=== PATIENT | female | born 1950 | race Caucasian/White ===

== ENCOUNTER 2016-09-03 10:17 | Outpatient (CLI) | payer MEDICARE, BC | END 2016-09-03 10:18 | disposition home or self-care (01) | DX: Z12.31 Encounter for screening mammogram for malignant neoplasm of breast (principal) ==

== ENCOUNTER 2016-09-09 14:45 | Outpatient (CLI) | payer MEDICARE, BC | END 2016-09-09 14:46 | disposition home or self-care (01) | LOC: LAB.WCP 14:45 | PROVIDERS: ATTEND Family Medicine | DX: N30.00 Acute cystitis without hematuria (principal) | CPT/HCPCS: 87077; 87086 ==

== ENCOUNTER 2016-10-29 08:36 | Outpatient (CLI) | payer MEDICARE, BC ==
--- NOTE | 2016-10-29 13:03 | MRI Report ---
EXAM: LEFT SHOULDER MRI WITHOUT CONTRAST EXAM DATE: 10/29/2016 09:47 a.m. CLINICAL HISTORY: Chronic left shoulder pain for one year. COMPARISON: None. TECHNIQUE: Multiplanar, multisequence T1-weighted and fluid-sensitive sequences of the shoulder witho ut contrast. Other: None. FINDINGS: Rotator cuff: Ill-defined full-thickness tear involving the distal posterior fibers of the supraspina tus and upper infraspinatus measuring approximately 1.8 cm medial to lateral and 1.2 cm anteroposteri or. Mild supraspinatus and infraspinatus atrophy with a mild degree of fatty replacement. Mild edema and thickening of the distal subscapularis. Low-grade insertional tear of the subscapularis allowing slight medial subluxation of the long head biceps tendon from the bicipital groove. Long head biceps tendon: Slight medial subluxation from the bicipital groove into the substance of th e distal subscapularis tendon. Otherwise intact. Labrum: Intact. No tear identified. Bones and articular surfaces: Mild cartilage thinning, irregularity and fissuring within the glenohum eral joint. Small amount of patchy subchondral marrow edema. Acromioclavicular joint: Mild degenerative change. Type I acromion. IMPRESSION: 1. Full-thickness tear involving the distal supraspinatus and infraspinatus junction measuring approx imately 1.8 x 1.2 cm. 2. Mild glenohumeral and acromioclavicular osteoarthritis. [facility] MUSCULOSKELETAL RADIOLOGY SECTION Referring Provider Line: [phone] SITE ID: [id number]
== END 2016-10-29 08:37 | disposition home or self-care (01) ==
LOC: DI 08:36
PROVIDERS: ATTEND Physician Assistant Medical
DX: M75.102 Unspecified rotator cuff tear or rupture of left shoulder, not specified as traumatic (principal); M19.012 Primary osteoarthritis, left shoulder

== ENCOUNTER 2017-10-09 19:23 | Outpatient (CLI) | payer MEDICARE, BC | END 2017-10-09 19:24 | disposition critical access hospital (66) | LOC: EMS 19:23 | PROVIDERS: ATTEND Surgery | DX: R42 Dizziness and giddiness (principal); R11.2 Nausea with vomiting, unspecified | CPT/HCPCS: A0425; A0429 ==

== ENCOUNTER 2017-10-09 19:43 | Emergency (ER) | payer MEDICARE, BC ==
--- NOTE | 2017-10-09 20:23 | ED Physician Documentation ---
PD HPI HEENT - Stated complaint Stated Complaint: DIZZINESS/N/V - Chief complaint Chief Complaint: Neuro - History obtained from History obtained from: Patient - History of Present Illness Timing - onset: How many days ago (few) Timing - details: Abrupt onset, Still present, Intermittant Location: Other (dizziness and has had some baseline tinnitus in left ear.) Worsens: Position Associated symptoms: No: Fever, Congestion, Rhinorrhea Similar symptoms before: No diagnosis (brief vertiog with standing up and bending over in the past, not consistent like current.) Recently seen: Not recently seen Review of Systems Constitutional: denies: Fever, Chills Eyes: denies: Loss of vision, Decreased vision, Photophobia Ears: reports: Loss of hearing (chronic mild), Tinnitus/ringing (left ear chronic intermittent) Nose: denies: Rhinorrhea / runny nose, Congestion, Sinus pressure / pain Throat: denies: Sore throat Cardiac: denies: Chest pain / pressure, Palpitations Respiratory: denies: Dyspnea, Cough GI: reports: Nausea, Vomiting. denies: Abdominal Pain, Diarrhea : denies: Dysuria, Frequency Skin: denies: Rash, Lesions Neurologic: denies: Focal weakness, Numbness, Difficulty speaking, Near syncope , Confused, Altered mental status, Headache, Head injury Endocrine: reports: Easy bruising / bleeding. denies: Weight loss Immunocompromised: denies: Immunocompromised PD PAST MEDICAL HISTORY - Past Medical History Cardiovascular: Hypertension, Deep vein thrombosis, Atrial fibrillation Respiratory: Shortness of breath Endocrine/Autoimmune: Type 2 diabetes GI: GERD, GI bleed ULTIMATE HOOPS REFEREE: None : Kidney stones HEENT: Chronic vision loss Psych: Depression, Anxiety Musculoskeletal: Osteoarthritis, Chronic back pain Derm: None - Past Surgical History Past Surgical History: No General: Cholecystectomy Ortho: Knee replacement, Other HEENT: Cataracts - Present Medications Home Medications: Ambulatory Orders Medication Instructions Recorded Confirmed FLUoxetine [PROzac] 20 mg PO DAILY 03/23/15 02/27/16 Lisinopril 10 mg PO DAILY 03/23/15 02/27/16 Nortriptyline [Pamelor] 25 mg PO .HS 03/23/15 02/27/16 buPROPion [Wellbutrin Sr] 150 mg PO DAILY 03/23/15 02/27/16 Atorvastatin Calcium [Lipitor] 80 mg PO DAILY 05/02/15 02/27/16 Pantoprazole Sodium 40 mg PO DAILY 02/27/16 02/27/16 Tolterodine Tartrate [Detrol LA] 4 mg PO DAILY 02/27/16 02/27/16 Warfarin [Coumadin] 1 mg PO DAILY 02/27/16 02/27/16 Dexamethasone [Decadron] 4 mg PO DAILY #5 tablet 10/09/17 Meclizine [Antivert] 25 mg PO Q6H PRN #30 tablet 10/09/17 - Allergies Allergies/Adverse Reactions: Allergies Allergy/AdvReac Type Severity Reaction Status Date / Time morphine Allergy Unknown Verified 10/09/17 19:48 phenobarbital Allergy Hives Verified 10/09/17 19:48 - Social History Does the pt smoke?: No Smoking Status: Never smoker Does the pt drink ETOH?: No Does the pt have substance abuse?: No - Family History Family history: reports: Non contributory - Immunizations Immunizations are current?: Yes - POLST Patient has POLST: No PD ED PE NORMAL - Vitals Vital signs reviewed: Yes - General General: Alert and oriented X 3, No acute distress, Well developed/nourished - HEENT HEENT: PERRL (with nystagmus to the left noted. ), Ears normal, Moist mucous membranes, Pharynx benign - Neck Neck: Supple, no meningeal sign, No adenopathy, No bruit - Cardiac Cardiac: RRR, No murmur - Respiratory Respiratory: Clear bilaterally - Abdomen Abdomen: Normal bowel sounds, Soft, Non tender - Back Back: No CVA TTP - Derm Derm: Normal color, Warm and dry, No rash - Extremities Extremities: No deformity, No tenderness to palpate, Normal ROM s pain, No edema , No calf tenderness / cord - Neuro Neuro: Alert and oriented X 3, head bone grinder 2-12 intact, No motor deficit, No sensory deficit, Normal speech Eye Opening: Spontaneous Motor: Obeys Commands Verbal: Oriented GCS Score: 15 - Psych Psych: Normal mood, Normal affect Results - Vitals Vitals: Vital Signs - 24 hr 10/09/17 22:54 Heart Rate 78 Respiratory 16 Rate Blood Pressure 132/58 H O2 Saturation 96 Oxygen O2 Source Room air - Labs Labs: Laboratory Tests 10/09/17 10/09/17 10/09/17 20:52 20:52 20:52 WBC 7.8 RBC 4.17 L Hgb 12.8 Hct 39.1 MCV 93.9 MCH 30.7 MCHC 32.7 RDW 13.8 Plt Count 270 MPV 7.7 L Neut # (Auto) 5.9 Lymph # (Auto) 1.3 L Barton # (Auto) 0.5 Eos # (Auto) 0.1 Baso # (Auto) 0.0 Absolute Nucleated RBC 0.01 Nucleated RBC % 0.1 ESR PT 28.6 H INR 2.6 H Sodium 138 Potassium 4.0 Chloride 104 Carbon Dioxide 27 Anion Gap 7.0 BUN 23 H Creatinine 1.1 H Estimated GFR (MDRD) 49 L Glucose 128 H Calcium 8.9 Magnesium 1.7 Total Bilirubin 0.3 AST 23 ALT 17 Alkaline Phosphatase 59 Total Protein 7.5 Albumin 3.5 Globulin 4.0 Albumin/Globulin Ratio 0.9 L Lipase 17 L 10/09/17 20:52 WBC RBC Hgb Hct MCV MCH MCHC RDW Plt Count MPV Neut # (Auto) Lymph # (Auto) Barton # (Auto) Eos # (Auto) Baso # (Auto) Absolute Nucleated RBC Nucleated RBC % ESR 23 PT INR Sodium Potassium Chloride Carbon Dioxide Anion Gap BUN Creatinine Estimated GFR (MDRD) Glucose Calcium Magnesium Total Bilirubin AST ALT Alkaline Phosphatase Total Protein Albumin Globulin Albumin/Globulin Ratio Lipase - Rads (name of study) head CT Radiology: Prelim report reviewed, EMP read contemporaneously PD MEDICAL DECISION MAKING - ED course Complexity details: considered differential (seems peripheral vertigo with positionality and dampening. She is on coumadin, so consider focal bleed, and got CT head. ), d/w patient - Sepsis Event Vital Signs: Vital Signs - 24 hr 10/09/17 22:54 Heart Rate 78 Respiratory 16 Rate Blood Pressure 132/58 H O2 Saturation 96 Oxygen O2 Source Room air Departure - Departure Disposition: 01 Home, Self Care Clinical Impression: Peripheral vertigo Qualifiers: Laterality: unspecified laterality Qualified Code(s): H81.399 - Other peripheral vertigo, unspecified ear Condition: Stable Record reviewed to determine appropriate education?: Yes Instructions: ED Vertigo Unspecified Follow-Up: Delio Manriquez DO [Primary Care Provider] - Prescriptions: Dexamethasone [Decadron] 4 mg PO DAILY #5 tablet Meclizine [Antivert] 25 mg PO Q6H PRN #30 tablet PRN Reason: Vertigo Comments: Continue usual medications. Get up and move slowly to reduce the triggering of the vertigo. Decadron daily for the next 5 days presuming some inflammation of the inner ear or the nerve to it causing the vertigo. Meclizine as needed to reduce the vertigo symptoms. Follow-up with your primary care in the next several days, call Wednesday for an appointment. Discharge Date/Time: 10/09/17 22:55
[2017-10-09] MEDS ORDERED: ONDANSETRON ODT 4 MG TABLET TL STA (20:37)
[2017-10-09 21:05] LABS: BASOPHILS % (AUTO) 0.5 %; EOSINOPHILS # (AUTO) 0.1 10^3/uL (0.0-0.7); EOSINOPHILS % (AUTO) 0.8 %; HGB - HEMOGLOBIN 12.8 g/dL (12.0-16.0); LYMPHOCYTES # (AUTO) 1.3 10^3/uL (1.5-3.5); LYMPHOCYTES % (AUTO) 16.1 %; MEAN CORPUSCULAR HEMOGLOBIN 30.7 pg (27.0-31.0); MEAN CORPUSCULAR HGB CONC 32.7 g/dL (32.0-36.0); MEAN CORPUSCULAR VOLUME 93.9 fL (81.0-99.0); MEAN PLATELET VOLUME 7.7 fL (7.9-10.8); MONOCYTES # (AUTO) 0.5 10^3/uL (0.0-1.0); MONOCYTES % (AUTO) 6.8 %; NEUTROPHILS # (AUTO) 5.9 10^3/uL (1.5-6.6); NEUTROPHILS % (AUTO) 75.8 %; PLT - PLATELET COUNT 270 10^3/uL (130-450); RED BLOOD COUNT 4.17 10^6/uL (4.20-5.40); RED CELL DISTRIBUTION WIDTH 13.8 % (12.0-15.0); WHITE BLOOD COUNT 7.8 x10^3/uL (4.8-10.8)
[2017-10-09 21:06] LABS: INR 2.6 (0.8-1.2); PT - PROTHROMBIN TIME 28.6 secs (9.9-12.6)
[2017-10-09 21:14] LABS: ALBUMIN 3.5 g/dL (3.2-5.5); ALBUMIN/GLOBULIN RATIO 0.9 (1.0-2.2); BILIRUBIN,TOTAL 0.3 mg/dL (0.2-1.0); CALCIUM 8.9 mg/dL (8.5-10.3); CREATININE 1.1 mg/dL (0.4-1.0); MAGNESIUM 1.7 mg/dL (1.7-2.8); TOTAL PROTEIN 7.5 g/dL (6.7-8.2)
[2017-10-09] MEDS ORDERED: MECLIZINE 12.5 MG TABLET PO STA (22:33)
[2017-10-09] MEDS ORDERED: DEXAMETHASONE 10 MG/ML VIAL PO STA (22:33)
--- NOTE | 2017-10-09 22:40 | CT Report ---
Procedure Date: 10/09/2017 Accession Number: [id number] / [id number] Procedure: CT - Head W/O CPT Code: FULL RESULT: EXAM: CT HEAD EXAM DATE: 10/09/2017 09:42 PM. CLINICAL HISTORY: Vertigo onset few hours ago. COMPARISON: Head CT 08/28/2015. TECHNIQUE: Multiaxial CT images were obtained from the foramen magnum to the vertex. Reformats: Coronal. IV contrast: None. In accordance with CT protocol optimization, one or more of the following dose reduction techniques were utilized for this exam: automated exposure control, adjustment of mA and/or KV based on patient size, or use of iterative reconstructive technique. FINDINGS: Parenchyma: No intraparenchymal hemorrhage. No evidence of mass, midline shift, or CT findings of infarction. Coronado-white differentiation is distinct. Extraaxial Spaces: Normal for age. No subdural or epidural collections identified. Ventricles: There is moderate dilatation of lateral ventricles, unchanged from prior study. Sinuses and Orbits: Imaged paranasal sinuses, orbits, and mastoids show no significant abnormality. Bones: No evidence of fracture or calvarial defect. Other: None. IMPRESSION: 1. No Evidence of acute intracranial processes. 2. Stable moderate ventriculomegaly may represent central volume loss or NPH. [facility]
[2017-10-09 22:55] VITALS: BP 132/58
== END 2017-10-09 22:55 | disposition home or self-care (01) ==
LOC: EDUNIT# → ED 19:43 → SUPCPDRO 19:43 → ED 22:55
DX: H81.399 Other peripheral vertigo, unspecified ear (principal); I10 Essential (primary) hypertension; E11.9 Type 2 diabetes mellitus without complications; I48.91 Unspecified atrial fibrillation; Z86.718 Personal history of other venous thrombosis and embolism; Z79.01 Long term (current) use of anticoagulants
CPT/HCPCS: 36415; 70450; 80053; 83690; 83735; 85025; 85610; 85651; 93005; 99283; A9270; Q0162

== ENCOUNTER 2017-11-11 12:22 | Outpatient (CLI) | payer MEDICARE, BC ==
--- NOTE | 2017-11-11 22:10 | Ultrasound Report ---
Procedure Date: 11/11/2017 Accession Number: [id number] / [id number] Procedure: US - Carotid Doppler Complete CPT Code: FULL RESULT: EXAM: BILATERAL CAROTID AND VERTEBRAL ARTERY DUPLEX DOPPLER ULTRASOUND: EXAM DATE: 11/11/2017 03:03 PM CLINICAL HISTORY: HEART MURMUR, VERTIGO, HYPERTENSION. COMPARISON: 03/28/2015. TECHNIQUE: Grayscale imaging, color Doppler, and duplex spectral Doppler were used to evaluate the carotid and vertebral arteries bilaterally. Static images were obtained. FINDINGS: There is a small amount of smooth partially calcified plaque at the bilateral carotid bifurcations. Normal antegrade flow is present in bilateral vertebral arteries. VELOCITIES (cm/sec): Right: RCCA Prox: PSV 91 cm/sec. RCCA Dist: PSV 82 cm/sec, EDV 9 cm/sec. RECA: PSV 130 cm/sec. R Bulb: PSV 60 cm/sec, EDV 10 cm/sec, ICA/CCA ratio 0.73. YANICK Prox: PSV 51 cm/sec, EDV 8 cm/sec, ICA/CCA ratio 0.62. YANICK Mid: PSV 103 cm/sec, EDV 18 cm/sec, ICA/CCA ratio 1.26. YANICK Dist: PSV 75 cm/sec, EDV 15 cm/sec, ICA/CCA ratio 0.91. RVA: PSV 84 cm/sec. RVA flow direction: Antegrade. Left: LCCA Prox: PSV 133 cm/sec. LCCA Dist: PSV 63 cm/sec, EDV 8 cm/sec. LECA: PSV 84 cm/sec. L Bulb: PSV 71 cm/sec, EDV 12 cm/sec, ICA/CCA ratio 1.13. LICA Prox: PSV 70 cm/sec, EDV 13 cm/sec, ICA/CCA ratio 1.11. LICA Mid: PSV 56 cm/sec, EDV 12 cm/sec, ICA/CCA ratio 0.89. LICA Dist: PSV 98 cm/sec, EDV 16 cm/sec, ICA/CCA ratio 1.56. LVA: PSV 49 cm/sec. LVA flow direction: Antegrade. ICA diameter stenosis: Right: <50% by velocity and <70% by NASCET criteria. Left: <50% by velocity and <70% by NASCET criteria. IMPRESSION: 1. There is a small amount of smooth partially calcified plaque at the bilateral carotid bifurcations. 2. In the right carotid artery there are no elevated carotid artery velocities to suggest hemodynamically significant stenosis. 3. In the left carotid artery there are no elevated carotid artery velocities to suggest hemodynamically significant stenosis. 4. Normal antegrade flow is present in bilateral vertebral arteries. General Recommendations: Stenosis =50% ICA - Follow-up ultrasound 6-12 months Stenosis <50% ICA - High Risk Patient with plaque - Follow-up ultrasound 1-2 years Normal Study but High Risk Patient - Follow-up ultrasound 3-5 years Management recommendations and diagnostic criteria are based on current IAC endorsed standards in Carotid Artery Stenosis: Grayscale and Doppler Ultrasound Diagnosis. Validated velocity measurements with angiographic measurements and velocity criteria are extrapolated from diameter data as defined by the Society of Radiologists in Ultrasound Consensus Conference Radiology 2003; 229;340-346. [facility]
== END 2017-11-11 12:23 | disposition home or self-care (01) ==
LOC: DI 12:22
PROVIDERS: ATTEND Family Medicine
DX: R01.1 Cardiac murmur, unspecified (principal); R42 Dizziness and giddiness; I10 Essential (primary) hypertension
CPT/HCPCS: 93306; 93880

== ENCOUNTER 2018-01-24 11:06 | Emergency (ER) | payer MEDICARE, BC ==
[2018-01-24] MEDS ORDERED: SODIUM CHLORIDE 0.9% 1,000 ML IV ONE (11:47)
[2018-01-24] MEDS ORDERED: ACETAMINOPHEN 1,000 MG/100 ML 100 ML IV STA (12:09)
[2018-01-24] MEDS ORDERED: ONDANSETRON 4 MG/2 ML VIAL IVP STA (12:09)
--- NOTE | 2018-01-24 12:24 | ED Physician Documentation ---
History of Present Illness - Stated complaint Stated Complaint: N/V/D DIZZY - Chief complaint Chief Complaint: Abd Pain - Additonal information Additional information: hx from pt 67 f to ED with 3 days of nausea diarrhea s bood and abd pain no bad food no travel no sick contacts no recent ab on coumadin 2/2 DVT 20 years ago not able to tolerate meds or food/fluid Review of Systems Constitutional: denies: Fever, Chills Cardiac: denies: Chest pain / pressure Respiratory: denies: Dyspnea GI: reports: Abdominal Pain, Nausea, Diarrhea. 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 : Kidney stones HEENT: Chronic vision loss Psych: Depression, Anxiety Musculoskeletal: Osteoarthritis, Chronic back pain Derm: None - Past Surgical History Past Surgical History: Yes General: Cholecystectomy Ortho: Knee replacement, Other HEENT: Cataracts - Present Medications Home Medications: Ambulatory Orders Medication Instructions Recorded Confirmed FLUoxetine [PROzac] 20 mg PO DAILY 03/23/15 02/27/16 Lisinopril 10 mg PO DAILY 03/23/15 02/27/16 Nortriptyline [Pamelor] 25 mg PO .HS 03/23/15 02/27/16 buPROPion [Wellbutrin Sr] 150 mg PO DAILY 03/23/15 02/27/16 Atorvastatin Calcium [Lipitor] 80 mg PO DAILY 05/02/15 02/27/16 Pantoprazole Sodium 40 mg PO DAILY 02/27/16 02/27/16 Tolterodine Tartrate [Detrol LA] 4 mg PO DAILY 02/27/16 02/27/16 Warfarin [Coumadin] 1 mg PO DAILY 02/27/16 02/27/16 Dexamethasone [Decadron] 4 mg PO DAILY #5 tablet 10/09/17 Meclizine [Antivert] 25 mg PO Q6H PRN #30 tablet 10/09/17 Cephalexin [Keflex] 500 mg PO Q6H #28 capsule 01/24/18 Ondansetron Odt [Zofran] 4 mg TL Q6H PRN #10 tablet 01/24/18 - Allergies Allergies/Adverse Reactions: Allergies Allergy/AdvReac Type Severity Reaction Status Date / Time morphine Allergy Unknown Verified 10/09/17 19:48 phenobarbital Allergy Hives Verified 10/09/17 19:48 - Social History Does the pt smoke?: No Smoking Status: Never smoker Does the pt drink ETOH?: No Does the pt have substance abuse?: No - Immunizations Immunizations are current?: Yes - POLST Patient has POLST: No PD ED PE NORMAL - Vitals Vital signs reviewed: Yes - General General: Alert and oriented X 3 - HEENT HEENT: PERRL - Neck Neck: Supple, no meningeal sign - Cardiac Cardiac: RRR - Respiratory Respiratory: No respiratory distress, Clear bilaterally - Abdomen Abdomen: Soft, Other (modertae TTP across abd R > L no rebound gaurding or pulsatile mass) Results - Vitals Vitals: Vital Signs - 24 hr 01/24/18 11:25 Temperature 36.6 C Heart Rate 80 Respiratory 20 Rate Blood Pressure 133/88 H O2 Saturation 97 Oxygen O2 Source Room air - Rads (name of study) CT AP Radiology: See rad report (no acute process, appendix non vis but no secondary signs of appy, no kidney/ureteral stones, large hiatal hernia containing stomach distal pancreas, splenic flexure of colon, s/p sondra and ventral hernia repair) PD MEDICAL DECISION MAKING - ED course ED course: diarrhea resolved in ED after stool cx ordered unable to get IV but prt drank a whole liter after ODT zofran labs fine except + UTI will dc on keflex and zofran - Sepsis Event Vital Signs: Vital Signs - 24 hr 01/24/18 11:25 Temperature 36.6 C Heart Rate 80 Respiratory 20 Rate Blood Pressure 133/88 H O2 Saturation 97 Oxygen O2 Source Room air Departure - Departure Disposition: 01 Home, Self Care Clinical Impression: Dehydration Diarrhea Qualifiers: Diarrhea type: unspecified type Qualified Code(s): R19.7 - Diarrhea, unspecified UTI (urinary tract infection) Qualifiers: Urinary tract infection type: acute cystitis Hematuria presence: with hematuria Qualified Code(s): N30.01 - Acute cystitis with hematuria Condition: Good Instructions: ED UTI Cystitis Female, ED Dehydration Follow-Up: Delio Manriquez DO [Primary Care Provider] - Prescriptions: Cephalexin [Keflex] 500 mg PO Q6H #28 capsule Ondansetron Odt [Zofran] 4 mg TL Q6H PRN #10 tablet PRN Reason: Nausea / Vomiting Comments: Your blood work was fine - INR was 2.1 You do have a UTI for which i have prescribed an antibiotic The diarrhea seems to have resolved You were able to hydrate orally after zofran for the nausea - so i have prescribed more of that Rest and drink plenty of fluids Follow up with your PMD for a repeat urine test after completing the antibiotics. Return to the ER if worse
--- NOTE | 2018-01-24 12:52 | CT Report ---
Reason: right sided abd pain Procedure Date: 01/24/2018 Accession Number: [id number] / [id number] Procedure: CT - Abdomen/Pelvis W/O CPT Code: FULL RESULT: EXAM: CT ABDOMEN AND PELVIS EXAM DATE: 01/24/2018 12:34 PM. CLINICAL HISTORY: Right-sided abdominal pain. COMPARISONS: None. TECHNIQUE: Routine helical CT imaging was performed through the abdomen and pelvis. IV contrast: No. Enteric contrast: No. Reconstructions: Coronal and sagittal. In accordance with CT protocol optimization, one or more of the following dose reduction techniques were utilized for this exam: automated exposure control, adjustment of mA and/or KV based on patient size, or use of iterative reconstructive technique. FINDINGS: Lung Bases: Large hiatal hernia containing majority of the stomach and portions of the distal pancreas and splenic flexure is seen. The spleen remains below the diaphragm. Solid organs: Noncontrast imaging of the solid organs demonstrates no acute findings including no nephrolithiasis or hydronephrosis. No organomegaly is suggested. Gallbladder/Bile Ducts: Cholecystectomy changes are seen. There is no biliary dilation. Peritoneal Cavity/Bowel: Normal. No free fluid, free air or adenopathy. No masses or acute inflammatory process. The appendix is not visualized, however, no inflammatory changes are seen in the right lower quadrant region. Hernia mesh repair changes are seen along the anterior mid abdominal wall. Pelvic Organs: Normal. The bladder and visualized pelvic organs are within normal limits. Vasculature: No aneurysms or other significant abnormality. Bones: No significant abnormality. Other: None. IMPRESSION: 1. No acute intra-abdominal abnormality demonstrated including no nephrolithiasis or hydronephrosis. 2. Large hiatal hernia containing stomach, distal pancreas, and splenic flexure of the colon. 3. Status post cholecystectomy and ventral hernia mesh repair changes. [facility]
[2018-01-24] MEDS ORDERED: ONDANSETRON ODT 4 MG TABLET TL STA (14:07)
[2018-01-24 14:27] LABS: BASOPHILS % (AUTO) 0.5 %; EOSINOPHILS % (AUTO) 0.4 %; HGB - HEMOGLOBIN 14.6 g/dL (12.0-16.0); LYMPHOCYTES # (AUTO) 1.4 10^3/uL (1.5-3.5); LYMPHOCYTES % (AUTO) 15.4 %; MEAN CORPUSCULAR VOLUME 91.2 fL (81.0-99.0); MEAN PLATELET VOLUME 7.5 fL (7.9-10.8); MONOCYTES # (AUTO) 0.8 10^3/uL (0.0-1.0); MONOCYTES % (AUTO) 9.3 %; NEUTROPHILS # (AUTO) 6.6 10^3/uL (1.5-6.6); NEUTROPHILS % (AUTO) 74.4 %; PLT - PLATELET COUNT 277 10^3/uL (130-450); RED BLOOD COUNT 4.71 10^6/uL (4.20-5.40); RED CELL DISTRIBUTION WIDTH 13.1 % (12.0-15.0); WHITE BLOOD COUNT 8.9 x10^3/uL (4.8-10.8)
[2018-01-24 14:33] LABS: INR 2.1 (0.8-1.2); PT - PROTHROMBIN TIME 23.1 secs (9.9-12.6)
[2018-01-24 14:39] LABS: ALBUMIN 4.1 g/dL (3.2-5.5); BILIRUBIN,TOTAL 0.6 mg/dL (0.2-1.0); CALCIUM 9.3 mg/dL (8.5-10.3); CREATININE 0.7 mg/dL (0.4-1.0); TOTAL PROTEIN 8.3 g/dL (6.7-8.2)
[2018-01-24 15:42] LABS: BILIRUBIN,URINE NEGATIVE (NEGATIVE); GLUCOSE, URINE (UA) NEGATIVE (NEGATIVE); KETONES,URINE (UA) NEGATIVE (NEGATIVE); LEUKOCYTE ESTERASE, URINE TRACE (NEGATIVE); NITRITE,URINE POSITIVE (NEGATIVE); OCCULT BLOOD,URINE SMALL (NEGATIVE); PROTEIN,URINE NEGATIVE (NEGATIVE); UROBILINOGEN,URINE 0.2 (NORMAL) E.U./dL (NORMAL)
[2018-01-24 15:50] LABS: CLARITY,URINE CLEAR (CLEAR)
[2018-01-24 15:56] LABS: BACTERIA,URINE Many /HPF (None Seen); SQUAMOUS EPITHELIAL CELL,UR RARE Squamous (<= Few); WBC CLUMPS,URINE PRESENT
[2018-01-24 16:23] VITALS: BP 159/83
== END 2018-01-24 16:31 | disposition home or self-care (01) ==
LOC: ED 11:06
DX: E86.0 Dehydration (principal); N39.0 Urinary tract infection, site not specified; I10 Essential (primary) hypertension; I48.91 Unspecified atrial fibrillation; E11.9 Type 2 diabetes mellitus without complications; Z86.718 Personal history of other venous thrombosis and embolism; Z79.01 Long term (current) use of anticoagulants
CPT/HCPCS: 36415; 74176; 80053; 81001; 83690; 84484; 85025; 85610; 87077; 87086; 87181; 99283; J0131; Q0162; 81003

== ENCOUNTER 2018-02-28 09:00 | Outpatient (CLI) | payer MEDICARE, BC ==
[2018-02-28 13:27] LABS: INR 1.8 (0.8-1.2); PT - PROTHROMBIN TIME 20.4 secs (9.9-12.6)
== END 2018-02-28 09:01 | disposition home or self-care (01) ==
LOC: LAB.WCP 09:00
PROVIDERS: ATTEND Family Medicine
DX: I82.509 Chronic embolism and thrombosis of unspecified deep veins of unspecified lower extremity (principal); Z79.01 Long term (current) use of anticoagulants
CPT/HCPCS: 36415; 85610

== ENCOUNTER 2018-03-01 08:36 | Outpatient (CLI) | payer MEDICARE, BC ==
--- NOTE | 2018-03-03 16:11 | Mammography Report ---
Reason: SCREENING MAMMO Procedure Date: 03/01/2018 Accession Number: [id number] / [id number] Procedure: MGN - Screening Mammo Dig Bilat CPT Code: FULL RESULT: EXAM: Screening Mammo Dig Bilat DATE: 03/01/2018 9:09 AM CLINICAL HISTORY: Routine screening. Family history breast cancer in aunt age 44, grandmother age 52 and a cousin age 48. TECHNIQUE: Bilateral CC and MLO views were obtained. COMPARISON: 09/03/2016 through 05/29/2013. FINDINGS: The breasts demonstrate scattered fibroglandular densities bilaterally. Bilateral breasts: There are no suspicious masses, calcifications or areas of distortion. There is a stable excisional biopsy scar upper outer right breast. IMPRESSION: Benign findings RECOMMENDATION: Routine annual screening unless otherwise clinically indicated. BI-RADS CATEGORY 2: Benign findings STANDARD QUALIFYING STATEMENTS: 1. This examination was reviewed with the aid of Computer-Aided Detection (CAD). 2. A negative or benign imaging report should not preclude biopsy if clinically suspicious findings are present. 3. Dense breasts may obscure an underlying neoplasm. 4. This examination was reviewed without the aid of 3D breast imaging (tomosynthesis).
== END 2018-03-01 08:37 | disposition home or self-care (01) ==
LOC: DI.N 08:36
DX: Z12.31 Encounter for screening mammogram for malignant neoplasm of breast (principal); Z80.3 Family history of malignant neoplasm of breast
CPT/HCPCS: 77067

== ENCOUNTER 2018-04-26 10:29 | Outpatient (CLI) | payer MEDICARE, BC ==
[2018-04-26 12:38] LABS: BASOPHILS % (AUTO) 0.4 %; EOSINOPHILS # (AUTO) 0.2 10^3/uL (0.0-0.7); EOSINOPHILS % (AUTO) 1.4 %; HGB - HEMOGLOBIN 11.1 g/dL (12.0-16.0); LYMPHOCYTES # (AUTO) 1.5 10^3/uL (1.5-3.5); LYMPHOCYTES % (AUTO) 11.2 %; MEAN CORPUSCULAR HEMOGLOBIN 29.8 pg (27.0-31.0); MEAN CORPUSCULAR HGB CONC 32.6 g/dL (32.0-36.0); MEAN CORPUSCULAR VOLUME 91.6 fL (81.0-99.0); MEAN PLATELET VOLUME 8.1 fL (7.9-10.8); MONOCYTES # (AUTO) 0.8 10^3/uL (0.0-1.0); MONOCYTES % (AUTO) 5.9 %; NEUTROPHILS # (AUTO) 10.9 10^3/uL (1.5-6.6); NEUTROPHILS % (AUTO) 81.1 %; PLT - PLATELET COUNT 488 10^3/uL (130-450); RED BLOOD COUNT 3.73 10^6/uL (4.20-5.40); RED CELL DISTRIBUTION WIDTH 13.8 % (12.0-15.0); WHITE BLOOD COUNT 13.4 x10^3/uL (4.8-10.8)
[2018-04-26 12:41] LABS: ALBUMIN 2.4 g/dL (3.2-5.5); ALBUMIN/GLOBULIN RATIO 0.5 (1.0-2.2); BILIRUBIN,TOTAL 0.3 mg/dL (0.2-1.0); CALCIUM 8.5 mg/dL (8.5-10.3); CREATININE 0.8 mg/dL (0.4-1.0); TOTAL PROTEIN 7.5 g/dL (6.7-8.2)
[2018-04-26 12:59] LABS: PT - PROTHROMBIN TIME > 120.0 secs (9.9-12.6)
[2018-04-26 13:19] LABS: INR > 10.0 (0.8-1.2)
== END 2018-04-26 23:59 | disposition home or self-care (01) ==
LOC: LAB.WCP 10:29
PROVIDERS: ATTEND Family Medicine
DX: J18.9 Pneumonia, unspecified organism (principal); Z79.01 Long term (current) use of anticoagulants
CPT/HCPCS: 36415; 80053; 85025; 85610

== ENCOUNTER 2018-07-01 08:00 | Outpatient (CLI) | payer MEDICARE, BC | END 2018-07-01 23:59 | disposition home or self-care (01) | LOC: LAB.WCP 08:00 | PROVIDERS: ATTEND Nurse Practitioner | DX: I82.509 Chronic embolism and thrombosis of unspecified deep veins of unspecified lower extremity (principal); Z79.01 Long term (current) use of anticoagulants ==

== ENCOUNTER 2018-08-12 09:37 | Outpatient (CLI) | payer MEDICARE, BC ==
[2018-08-12 12:49] LABS: EOSINOPHILS % (AUTO) 1.3 %; HGB - HEMOGLOBIN 12.4 g/dL (12.0-16.0); LYMPHOCYTES # (AUTO) 0.9 10^3/uL (1.5-3.5); LYMPHOCYTES % (AUTO) 26.4 %; MEAN CORPUSCULAR HGB CONC 32.5 g/dL (32.0-36.0); MEAN CORPUSCULAR VOLUME 89.3 fL (81.0-99.0); MEAN PLATELET VOLUME 8.1 fL (7.9-10.8); MONOCYTES # (AUTO) 0.4 10^3/uL (0.0-1.0); MONOCYTES % (AUTO) 12.4 %; NEUTROPHILS % (AUTO) 58.9 %; PLT - PLATELET COUNT 304 10^3/uL (130-450); RED BLOOD COUNT 4.28 10^6/uL (4.20-5.40); RED CELL DISTRIBUTION WIDTH 13.4 % (12.0-15.0); WHITE BLOOD COUNT 3.4 x10^3/uL (4.8-10.8)
[2018-08-12 13:07] LABS: ALBUMIN 3.8 g/dL (3.2-5.5); ALBUMIN/GLOBULIN RATIO 0.9 (1.0-2.2); ALKALINE PHOSPHATASE 88 IU/L (42-121); ALT ALANINE AMINOTRANSFERASE 25 IU/L (10-60); AST ASPARTATE AMINOTRANSFERASE 29 IU/L (10-42); BILIRUBIN,TOTAL 0.4 mg/dL (0.2-1.0); BUN - BLOOD UREA NITROGEN 23 mg/dL (6-20); CALCIUM 9.1 mg/dL (8.5-10.3); CARBON DIOXIDE - CO2 26 mmol/L (21-32); CHLORIDE 103 mmol/L (101-111); CHOL/HDL RATIO 1.9 (<4.4); CHOLESTEROL 187 mg/dL; CREATININE 0.9 mg/dL (0.4-1.0); GFR - MDRD 62 (>89); GLUCOSE 115 mg/dL (70-100); HDL CHOLESTEROL 96 mg/dL; LDL CHOLESTEROL,CALCULATED 72 mg/dL; LDL/HDL RATIO 0.8 (<4.4); SODIUM 139 mmol/L (135-145); VLDL CHOLESTEROL 19 mg/dL
[2018-08-12 13:38] LABS: HB2 TOTAL 13.4 g/dL; HEMOGLOBIN A1C 0.48 g/dL; HEMOGLOBIN A1C % 5.4 % (4.6-6.2)
== END 2018-08-12 23:59 | disposition home or self-care (01) ==
LOC: LAB.N 09:37
DX: E11.9 Type 2 diabetes mellitus without complications (principal); Z79.01 Long term (current) use of anticoagulants
CPT/HCPCS: 36415; 80053; 80061; 83036; 83721; 84443; 85025; 85610

== ENCOUNTER 2018-08-18 08:00 | Outpatient (CLI) | payer MEDICARE, BC | END 2018-08-18 23:59 | disposition home or self-care (01) | LOC: LAB.WCP 08:00 | PROVIDERS: ATTEND Family Medicine | DX: N39.0 Urinary tract infection, site not specified (principal) | CPT/HCPCS: 87077; 87086; 87181 ==

== ENCOUNTER 2018-10-07 11:09 | Outpatient (CLI) | payer MEDICARE, BC ==
[2018-10-07] MEDS ORDERED: IOTHALAMATE MEGLUMINE 50 ML VIAL ONE (11:42)
[2018-10-07] MEDS ORDERED: BUFFERED LIDOCAINE 10 ML SYRINGE ONE (11:42)
--- NOTE | 2018-10-07 14:36 | XRAY Report ---
Reason: PAIN IN LEFT SHOULDER Procedure Date: 10/07/2018 Accession Number: [id number] / [id number] Procedure: FL - Inj/Aspiration Major Joint CPT Code: FULL RESULT: EXAM: LEFT SHOULDER STEROID INJECTION WITH FLUOROSCOPIC GUIDANCE EXAM DATE: 10/07/2018 12:33 PM. CLINICAL HISTORY: PAIN IN LEFT SHOULDER. COMPARISON: None. TECHNIQUE: The risks, benefits, and alternatives of the procedure were discussed with the patient. All questions were answered. Written and verbal consent were obtained. The glenohumeral joint was marked under fluoroscopy and prepped and draped in a sterile manner. Local anesthesia was performed with 1% lidocaine. A 22-gauge needle was then inserted into the glenohumeral joint. Location was tested with contrast and following confirmation, 40 mg of triamcinolone with 4 mL of 0.5% ropivacaine was then injected. The needle was removed without immediate complication. Other: None. Fluoroscopy Time: 1 second. Number of Images: 3. FINDINGS: Bones and joints: No fracture or subluxation. Injection: Fluoroscopic images demonstrate needle placement and contrast in the glenohumeral joint. No contrast extravasation outside of the glenohumeral joint. IMPRESSION: Successful fluoroscopically-guided steroid injection of the shoulder. [facility]
[2018-10-07] MEDS ORDERED: IOTHALAMATE MEGLUMINE 50 ML VIAL IVP ONE ×2 (15:42)
[2018-10-07] MEDS ORDERED: TRIAMCINOLONE 40 MG/ML VIAL IM ONE (15:42)
[2018-10-07] MEDS ORDERED: BUFFERED LIDOCAINE 10 ML SYRINGE IU ONE ×2 (15:42)
[2018-10-07] MEDS ORDERED: ROPIVACAINE 0.5% PF 20 ML VIAL EPI SCH (16:00)
[2018-10-07] MEDS ORDERED: ROPIVACAINE 0.5% PF 20 ML VIAL EPI ONE (16:00)
== END 2018-10-07 11:10 | disposition home or self-care (01) ==
LOC: DI 11:09
PROVIDERS: ATTEND Orthopaedic Surgery Sports Medicine
DX: M25.512 Pain in left shoulder (principal)
CPT/HCPCS: 20610; J2795; Q9961

== ENCOUNTER 2018-10-27 08:00 | Outpatient (CLI) | payer MEDICARE, BC | END 2018-10-27 08:01 | disposition home or self-care (01) | LOC: LAB.WCP 08:00 | PROVIDERS: ATTEND Family Medicine | DX: I80.9 Phlebitis and thrombophlebitis of unspecified site (principal); Z79.01 Long term (current) use of anticoagulants; Z86.73 Personal history of transient ischemic attack (TIA), and cerebral infarction without residual deficits ==

== ENCOUNTER 2018-11-10 08:00 | Outpatient (CLI) | payer MEDICARE, BC | END 2018-11-10 08:01 | disposition home or self-care (01) | LOC: LAB.WCP 08:00 | PROVIDERS: ATTEND Family Medicine | DX: I63.9 Cerebral infarction, unspecified (principal); I82.509 Chronic embolism and thrombosis of unspecified deep veins of unspecified lower extremity; Z79.01 Long term (current) use of anticoagulants ==

== ENCOUNTER 2018-11-25 08:00 | Outpatient (CLI) | payer MEDICARE, BC | END 2018-11-25 23:59 | disposition home or self-care (01) | LOC: LAB.WCP 08:00 | PROVIDERS: ATTEND Family Medicine | DX: I82.509 Chronic embolism and thrombosis of unspecified deep veins of unspecified lower extremity (principal); Z79.01 Long term (current) use of anticoagulants ==

== ENCOUNTER 2018-12-09 08:00 | Outpatient (CLI) | payer MEDICARE, BC | END 2018-12-09 23:59 | disposition home or self-care (01) | LOC: LAB.WCP 08:00 | PROVIDERS: ATTEND Family Medicine | DX: Z79.01 Long term (current) use of anticoagulants (principal); I80.9 Phlebitis and thrombophlebitis of unspecified site; Z86.73 Personal history of transient ischemic attack (TIA), and cerebral infarction without residual deficits ==

== ENCOUNTER 2019-01-01 16:30 | Emergency (ER) | payer MEDICARE, BC ==
[2019-01-01] MEDS ORDERED: oxyCODONE 5 MG TABLET PO STA (17:20)
--- NOTE | 2019-01-01 17:22 | ED Physician Documentation ---
History of Present Illness - Stated complaint Stated Complaint: R LEG PX - Chief complaint Chief Complaint: Ext Problem - History obtained from History obtained from: Patient, Family - History of Present Illness Timing: How many weeks ago Pain level max: 7 Pain level now: 6 - Additonal information Additional information: 68-year-old female presents to the emergency department with a right posterior thigh injury from a fall 1 week ago. Patient states she is on warfarin for a blood clot to the left leg 20 years ago. Denies history of atrial fibrillation. Denies strokes. She states increasing bruising and pain. She uses a walker to walk. She also has bruising to the right elbow. No pain here. Worse with walking, worse with lying on the right thigh. 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 : Kidney stones HEENT: Chronic vision loss Psych: Depression, Anxiety Musculoskeletal: Osteoarthritis, Chronic back pain Derm: None - Past Surgical History Past Surgical History: Yes General: Cholecystectomy Ortho: Knee replacement, Other HEENT: Cataracts - Present Medications Home Medications: Ambulatory Orders Medication Instructions Recorded Confirmed FLUoxetine [PROzac] 20 mg PO DAILY 03/23/15 02/27/16 Lisinopril 10 mg PO DAILY 03/23/15 02/27/16 Nortriptyline [Pamelor] 25 mg PO .HS 03/23/15 02/27/16 buPROPion [Wellbutrin Sr] 150 mg PO DAILY 03/23/15 02/27/16 Atorvastatin Calcium [Lipitor] 80 mg PO DAILY 05/02/15 02/27/16 Pantoprazole Sodium 40 mg PO DAILY 02/27/16 02/27/16 Tolterodine Tartrate [Detrol LA] 4 mg PO DAILY 02/27/16 02/27/16 Warfarin [Coumadin] 1 mg PO DAILY 02/27/16 02/27/16 Meclizine [Antivert] 25 mg PO Q6H PRN #30 tablet 10/09/17 dexAMETHasone [Decadron] 4 mg PO DAILY #5 tablet 10/09/17 Cephalexin [Keflex] 500 mg PO Q6H #28 capsule 01/24/18 Ondansetron Odt [Zofran] 4 mg TL Q6H PRN #10 tablet 01/24/18 Oxycodone HCl/Acetaminophen 1 - 2 each PO Q6H PRN #14 tablet 01/01/19 [Percocet 5-325 mg Tablet] - Allergies Allergies/Adverse Reactions: Allergies Allergy/AdvReac Type Severity Reaction Status Date / Time morphine Allergy Unknown Verified 10/09/17 19:48 phenobarbital Allergy Hives Verified 10/09/17 19:48 - Social History Does the pt smoke?: No Smoking Status: Never smoker Does the pt drink ETOH?: No Does the pt have substance abuse?: No - Immunizations Immunizations are current?: Yes - POLST Patient has POLST: No PD ED PE NORMAL - Vitals Vital signs reviewed: Yes - General General: Alert and oriented X 3, No acute distress - HEENT HEENT: Moist mucous membranes - Neck Neck: Supple, no meningeal sign - Cardiac Cardiac: RRR - Respiratory Respiratory: No respiratory distress, Clear bilaterally - Derm Derm: Warm and dry - Extremities Extremities: Other (8 x 10 cm area of hematoma to the posterior right thigh. No signs of infection. Also has bruising around this. She also has a small amount of bruising to the posterior aspect of the right elbow. Full range of motion without pain. No bony tenderness over the hip or spine. Full range of motion of the hip. NVI) Results - Vitals Vitals: Vital Signs - 24 hr 01/01/19 01/01/19 16:37 17:48 Temperature 36.5 C 37.0 C Heart Rate 83 79 Respiratory 18 16 Rate Blood Pressure 144/57 H 147/62 H O2 Saturation 99 99 Oxygen O2 Source Room air - Labs Labs: Laboratory Tests 01/01/19 17:15 Whole Blood INR 2.8 H PD MEDICAL DECISION MAKING - ED course Complexity details: reviewed results, considered differential, d/w patient, d/w family ED course: Patient with large thigh hematoma. We will hold her warfarin for the next 3 days. On review of records, she does have a history of atrial fibrillation. Lucian wrap was applied for compression. Will prescribe pain medication for home as well. She is using a walker. No x-rays are indicated at this time. No signs of infection. Patient counseled regarding signs and symptoms for which I believe and urgent re-evaluation would be necessary. Patient with good understanding of and agreement to plan and is comfortable going home at this time This document was made in part using voice recognition software. While efforts are made to proofread this document, sound alike and grammatical errors may occur. Departure - Departure Disposition: 01 Home, Self Care Clinical Impression: Anticoagulant effect Thigh hematoma Qualifiers: Encounter type: initial encounter Laterality: right Qualified Code(s): S70.11XA - Contusion of right thigh, initial encounter Condition: Good Instructions: ED Hematoma Follow-Up: Delio Manriquez DO [Primary Care Provider] - Within 3 Days Prescriptions: Oxycodone HCl/Acetaminophen [Percocet 5-325 mg Tablet] 1 - 2 each PO Q6H PRN #14 tablet PRN Reason: pain Comments: Hold your warfarin for the next 3 days. The Lucian bandage can be used to apply gentle compression. Ice or heat may help as well. Likely ice to start. Follow-up with your doctor within a few days for a wound check. Return if you worsen. Do not drink alcohol or drive while on narcotic pain medicine. Note that many narcotic pain relievers also contain tylenol/acetaminophen. Please ensure that your total dose of acetaminophen from all sources does not exceed 3 grams (3000mg) per day. You may constipated on this medication, take a stool softener such as "Colace" twice a day while you are on it. Also recommend a [id number]-[id number] laxative such as senna or MiraLAX any day that you do not have a bowel movement. If you received narcotic pain medication in the emergency department, do not drive or operate machinery for the next 24 hours. Discharge Date/Time: 01/01/19 17:51
[2019-01-01 17:49] VITALS: BP 147/62
== END 2019-01-01 17:51 | disposition home or self-care (01) ==
LOC: ED 16:30
DX: S70.11XA Contusion of right thigh, initial encounter (principal); S50.01XA Contusion of right elbow, initial encounter; W01.0XXA Fall on same level from slipping, tripping and stumbling without subsequent striking against object, initial encounter; Z79.01 Long term (current) use of anticoagulants; Z86.718 Personal history of other venous thrombosis and embolism; I48.91 Unspecified atrial fibrillation; I10 Essential (primary) hypertension; E11.9 Type 2 diabetes mellitus without complications
CPT/HCPCS: 85610; 99283; 99284; A9270

== ENCOUNTER 2019-01-11 08:00 | Outpatient (CLI) | payer MEDICARE, BC | END 2019-01-11 23:59 | disposition home or self-care (01) | LOC: LAB.WCP 08:00 | PROVIDERS: ATTEND Family Medicine | DX: I82.509 Chronic embolism and thrombosis of unspecified deep veins of unspecified lower extremity (principal) ==

== ENCOUNTER 2019-01-18 08:00 | Outpatient (CLI) | payer MEDICARE, BC | END 2019-01-18 23:59 | disposition home or self-care (01) | LOC: LAB.WCP 08:00 | PROVIDERS: ATTEND Family Medicine | DX: I80.9 Phlebitis and thrombophlebitis of unspecified site (principal); Z79.01 Long term (current) use of anticoagulants ==

== ENCOUNTER 2019-02-03 10:30 | Outpatient (CLI) | payer MEDICARE, BC | END 2019-02-03 23:59 | disposition home or self-care (01) | LOC: LAB.R 10:30 | PROVIDERS: ATTEND Family Medicine | DX: R32 Unspecified urinary incontinence (principal) | CPT/HCPCS: 87086; 87181 ==

== ENCOUNTER 2019-02-23 08:00 | Outpatient (CLI) | payer MEDICARE, BC | END 2019-02-23 23:59 | disposition home or self-care (01) | LOC: LAB.WCP 08:00 | PROVIDERS: ATTEND Family Medicine | DX: I82.509 Chronic embolism and thrombosis of unspecified deep veins of unspecified lower extremity (principal); Z79.01 Long term (current) use of anticoagulants; Z86.73 Personal history of transient ischemic attack (TIA), and cerebral infarction without residual deficits ==

== ENCOUNTER 2019-03-01 08:00 | Outpatient (CLI) | payer MEDICARE, BC | END 2019-03-01 23:59 | disposition home or self-care (01) | LOC: LAB.WCP 08:00 | PROVIDERS: ATTEND Family Medicine | DX: Z79.01 Long term (current) use of anticoagulants (principal); I82.509 Chronic embolism and thrombosis of unspecified deep veins of unspecified lower extremity ==

== ENCOUNTER 2019-03-08 08:00 | Outpatient (CLI) | payer MEDICARE, BC | END 2019-03-08 23:59 | disposition home or self-care (01) | LOC: LAB.WCP 08:00 | PROVIDERS: ATTEND Family Medicine | DX: I82.509 Chronic embolism and thrombosis of unspecified deep veins of unspecified lower extremity (principal); Z79.01 Long term (current) use of anticoagulants ==

== ENCOUNTER 2019-03-22 08:00 | Outpatient (CLI) | payer MEDICARE, BC | END 2019-03-22 23:59 | disposition home or self-care (01) | LOC: LAB.WCP 08:00 | PROVIDERS: ATTEND Family Medicine | DX: I82.509 Chronic embolism and thrombosis of unspecified deep veins of unspecified lower extremity (principal); Z79.01 Long term (current) use of anticoagulants ==

== ENCOUNTER 2019-03-24 09:40 | Outpatient (CLI) | payer MEDICARE, BC | END 2019-03-24 23:59 | disposition home or self-care (01) | LOC: LAB.WCP 09:40 | PROVIDERS: ATTEND Family Medicine | DX: R32 Unspecified urinary incontinence (principal) | CPT/HCPCS: 87086; 87181 ==

== ENCOUNTER 2019-03-29 08:00 | Outpatient (CLI) | payer MEDICARE, BC | END 2019-03-29 23:59 | disposition home or self-care (01) | LOC: LAB.WCP 08:00 | PROVIDERS: ATTEND Family Medicine | DX: Z79.01 Long term (current) use of anticoagulants (principal); I82.509 Chronic embolism and thrombosis of unspecified deep veins of unspecified lower extremity ==

== ENCOUNTER 2019-04-05 09:46 | Outpatient (CLI) | payer MEDICARE, BC ==
[2019-04-05 12:38] LABS: BASOPHILS % (AUTO) 0.7 %; EOSINOPHILS % (AUTO) 0.6 %; HGB - HEMOGLOBIN 12.9 g/dL (12.0-16.0); LYMPHOCYTES # (AUTO) 1.1 10^3/uL (1.5-3.5); MEAN CORPUSCULAR HEMOGLOBIN 27.3 pg (27.0-31.0); MEAN CORPUSCULAR HGB CONC 29.9 g/dL (32.0-36.0); MEAN CORPUSCULAR VOLUME 91.3 fL (81.0-99.0); MEAN PLATELET VOLUME 9.9 fL (7.9-10.8); MONOCYTES # (AUTO) 0.5 10^3/uL (0.0-1.0); MONOCYTES % (AUTO) 9.5 %; NEUTROPHILS # (AUTO) 3.7 10^3/uL (1.5-6.6); NEUTROPHILS % (AUTO) 68.8 %; PLT - PLATELET COUNT 403 10^3/uL (130-450); RED BLOOD COUNT 4.72 10^6/uL (4.20-5.40); RED CELL DISTRIBUTION WIDTH 13.4 % (12.0-15.0); WHITE BLOOD COUNT 5.4 x10^3/uL (4.8-10.8)
[2019-04-05 12:57] LABS: ALBUMIN/GLOBULIN RATIO 0.9 (1.0-2.2); BILIRUBIN,TOTAL 0.3 mg/dL (0.2-1.0); CALCIUM 9.1 mg/dL (8.5-10.3); CREATININE 1.1 mg/dL (0.4-1.0); TOTAL PROTEIN 8.3 g/dL (6.7-8.2)
[2019-04-05 13:07] LABS: HB2 TOTAL 13.5 g/dL; HEMOGLOBIN A1C 0.56 g/dL; HEMOGLOBIN A1C % 5.9 % (4.6-6.2)
== END 2019-04-05 23:59 | disposition home or self-care (01) ==
LOC: LAB.WCP 09:46
PROVIDERS: ATTEND Family Medicine
DX: E11.9 Type 2 diabetes mellitus without complications (principal)
CPT/HCPCS: 36415; 80053; 83036; 85025

== ENCOUNTER 2019-04-06 12:22 | Outpatient (CLI) | payer MEDICARE, BC | END 2019-04-06 12:23 | disposition critical access hospital (66) | LOC: EMS 12:22 | PROVIDERS: ATTEND Surgery | DX: S09.90XA Unspecified injury of head, initial encounter (principal); W18.39XA Other fall on same level, initial encounter; Y93.01 Activity, walking, marching and hiking; Y92.481 Parking lot as the place of occurrence of the external cause | CPT/HCPCS: A0425; A0429 ==

== ENCOUNTER 2019-04-06 12:41 | Emergency (ER) | payer MEDICARE, BC ==
--- NOTE | 2019-04-06 12:49 | ED Physician Documentation ---
PD HPI HEAD INJURY - Stated complaint Stated Complaint: GLF - History obtained from History obtained from: Patient, EMS - History of Present Illness Mechanism of head injury: Fell (She had a brief episode of weakness and fell forward hitting her head in the parking lot of the grocery store. She has a abrasion on the right side of the scalp. No loss of consciousness or other injuries. 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 : Kidney stones HEENT: Chronic vision loss Psych: Depression, Anxiety Musculoskeletal: Osteoarthritis, Chronic back pain Derm: None - Past Surgical History Past Surgical History: Yes General: Cholecystectomy Ortho: Knee replacement, Other HEENT: Cataracts - Present Medications Home Medications: Ambulatory Orders Medication Instructions Recorded Confirmed FLUoxetine [PROzac] 20 mg PO DAILY 03/23/15 02/27/16 Lisinopril 10 mg PO DAILY 03/23/15 02/27/16 Nortriptyline [Pamelor] 25 mg PO .HS 03/23/15 02/27/16 buPROPion [Wellbutrin Sr] 150 mg PO DAILY 03/23/15 02/27/16 Atorvastatin Calcium [Lipitor] 80 mg PO DAILY 05/02/15 02/27/16 Pantoprazole Sodium 40 mg PO DAILY 02/27/16 02/27/16 Tolterodine Tartrate [Detrol LA] 4 mg PO DAILY 02/27/16 02/27/16 Warfarin [Coumadin] 1 mg PO DAILY 02/27/16 02/27/16 Meclizine [Antivert] 25 mg PO Q6H PRN #30 tablet 10/09/17 dexAMETHasone [Decadron] 4 mg PO DAILY #5 tablet 10/09/17 Cephalexin [Keflex] 500 mg PO Q6H #28 capsule 01/24/18 Ondansetron Odt [Zofran] 4 mg TL Q6H PRN #10 tablet 01/24/18 Oxycodone HCl/Acetaminophen 1 - 2 each PO Q6H PRN #14 tablet 01/01/19 [Percocet 5-325 mg Tablet] - Allergies Allergies/Adverse Reactions: Allergies Allergy/AdvReac Type Severity Reaction Status Date / Time morphine Allergy Unknown Verified 04/06/19 12:56 phenobarbital Allergy Hives Verified 04/06/19 12:56 doxycycline AdvReac Nausea Verified 04/06/19 12:56 - Social History Does the pt smoke?: No Smoking Status: Never smoker Does the pt drink ETOH?: No Does the pt have substance abuse?: No - Immunizations Immunizations are current?: Yes - POLST Patient has POLST: No PD ED PE NORMAL - Vitals Vital signs reviewed: Yes - General General: Alert and oriented X 3, No acute distress - HEENT HEENT: PERRL, EOMI, Other (There is a small abrasion on the right parietal area) - Neck Neck: Supple, no meningeal sign, No bony TTP - Cardiac Cardiac: RRR, No murmur - Neuro Neuro: Alert and oriented X 3, meat smoker 2-12 intact Eye Opening: Spontaneous Motor: Obeys Commands Verbal: Oriented GCS Score: 15 Results - Vitals Vitals: Vital Signs - 24 hr 04/06/19 12:50 Temperature 98.0 C H Heart Rate 86 Respiratory 14 Rate Blood Pressure 154/65 H O2 Saturation 99 Oxygen O2 Source Room air - Labs Labs: Laboratory Tests 04/06/19 12:49 Whole Blood INR 3.3 H - Rads (name of study) CT of the head, noncontrast Radiology: EMP read contemporaneously (Soft tissue swelling, generalized atrophy, no acute intracranial abnormality.) CT Cspine Radiology: EMP read contemporaneously (Abnormal thyroid, otherwise degenerative changes only) Departure - Departure Disposition: 01 Home, Self Care Clinical Impression: Cervical strain, acute Qualifiers: Encounter type: initial encounter Qualified Code(s): S16.1XXA - Strain of muscle, fascia and tendon at neck level, initial encounter Atrial fibrillation Qualifiers: Atrial fibrillation type: paroxysmal Qualified Code(s): I48.0 - Paroxysmal atrial fibrillation Head injury Qualifiers: Encounter type: initial encounter Qualified Code(s): S09.90XA - Unspecified injury of head, initial encounter Condition: Good Record reviewed to determine appropriate education?: Yes Instructions: ED Head Injury Closed Sleep Mon Ch Comments: Your INR today is slightly high at 3.3, skip your warfarin tonight and have the level rechecked tomorrow with your physician. You do have an abnormal thyroid on CT imaging of your neck. Mention this to your doctor, he or she may want to order further testing on that. Return for new or worsening symptoms.
[2019-04-06] MEDS ORDERED: ACETAMINOPHEN 325 MG TABLET PO STA (14:08)
--- NOTE | 2019-04-06 14:25 | CT Report ---
Reason: Head trauma, coagulopathy Procedure Date: 04/06/2019 Accession Number: [id number] / [id number] Procedure: CT - HEAD WO CPT Code: Final Report FULL RESULT: EXAM: CT HEAD EXAM DATE: 04/06/2019 01:15 PM. CLINICAL HISTORY: Head trauma, coagulopathy. COMPARISON: HEAD W/O 10/09/2017 9:33 PM. TECHNIQUE: Multiaxial CT images were obtained from the foramen magnum to the vertex. Reformats: Sagittal and coronal. IV contrast: None. In accordance with CT protocol optimization, one or more of the following dose reduction techniques were utilized for this exam: automated exposure control, adjustment of mA and/or KV based on patient size, or use of iterative reconstructive technique. FINDINGS: Parenchyma: No intraparenchymal hemorrhage. No evidence of mass, midline shift, or CT findings of acute infarction. Coronado-white differentiation is distinct. Diffuse chronic microangiopathic white matter changes. Extraaxial Spaces: Normal for age. No subdural or epidural collections. Ventricles: The ventricles and cortical sulci are enlarged, consistent with age-related tissue loss. Sinuses and orbits: Imaged paranasal sinuses, orbits, and mastoids show no significant abnormality. Bones: Unremarkable. Other: Localized soft tissue swelling over right parietal region with small cephalhematoma. IMPRESSION: 1. Superficial soft tissue swelling. 2. Generalized age-related cortical atrophic changes without evidence of acute intracranial abnormality. RADIA
--- NOTE | 2019-04-06 14:31 | CT Report ---
Reason: head inj Procedure Date: 04/06/2019 Accession Number: [id number] / [id number] Procedure: CT - CERVICAL SPINE WO CPT Code: Final Report FULL RESULT: EXAM: CT CERVICAL SPINE WITHOUT CONTRAST DATE: 04/06/2019 01:15 PM. HISTORY: Head injury with neck pain COMPARISONS: No prior images are available for comparison. There was a prior cervical spine CT on 08/28/2015 but the images are not available.. TECHNIQUE: Thin-section axial images were acquired of the cervical spine without contrast. Post-processing: Coronal and sagittal reformats. Other: None. In accordance with CT protocol optimization, one or more of the following dose reduction techniques were utilized for this exam: automated exposure control, adjustment of mA and/or KV based on patient size, or use of iterative reconstructive technique. FINDINGS: Alignment: There is straightening of normal cervical lordosis without subluxation or scoliosis. Bones: Negative for an acute fracture. There is right-sided C3-C4 facet fusion. There is a large anterior disk osteophyte spur at C5-C6. There is a mild spur at C6-C7 anteriorly. Interspace Levels/Facets: There is moderate disk height loss at C5-C6 and C6-C7. No significant bony central spinal canal stenosis. Musculature: Normal. No fatty atrophy. Other: There is an asymmetric enlarged left lobe of thyroid which contains multiple calcifications. Left thyroid lobe measures 44 x 35 x 63 mm. No apical pneumothorax. IMPRESSION: 1. Negative for an acute fracture or subluxation of the cervical spine. 2. Multilevel degenerative disease. 3. Left thyroid enlargement with calcifications. Findings could reflect benign asymmetric goiter or thyroid neoplasm. RADIA
[2019-04-06 14:49] VITALS: BP 130/62
== END 2019-04-06 15:06 | disposition home or self-care (01) ==
LOC: EDUNIT# → ED 12:41
DX: S16.1XXA Strain of muscle, fascia and tendon at neck level, initial encounter (principal); S00.01XA Abrasion of scalp, initial encounter; S09.90XA Unspecified injury of head, initial encounter; W18.30XA Fall on same level, unspecified, initial encounter; Y92.512 Supermarket, store or market as the place of occurrence of the external cause; I48.0 Paroxysmal atrial fibrillation; R79.1 Abnormal coagulation profile; Z86.718 Personal history of other venous thrombosis and embolism; Z79.01 Long term (current) use of anticoagulants; M50.322 Other cervical disc degeneration at C5-C6 level; M25.78 Osteophyte, vertebrae; E04.9 Nontoxic goiter, unspecified; I10 Essential (primary) hypertension; E11.9 Type 2 diabetes mellitus without complications
CPT/HCPCS: 70450; 72125; 85610; 99283; 99284; A9270

== ENCOUNTER 2019-04-10 08:00 | Outpatient (CLI) | payer MEDICARE, BC | END 2019-04-10 23:59 | disposition home or self-care (01) | LOC: LAB.WCP 08:00 | PROVIDERS: ATTEND Family Medicine | DX: I82.509 Chronic embolism and thrombosis of unspecified deep veins of unspecified lower extremity (principal); Z79.01 Long term (current) use of anticoagulants; I48.0 Paroxysmal atrial fibrillation ==

== ENCOUNTER 2019-04-17 08:00 | Outpatient (CLI) | payer MEDICARE, BC | END 2019-04-17 23:59 | disposition home or self-care (01) | LOC: LAB.WCP 08:00 | PROVIDERS: ATTEND Nurse Practitioner Family | DX: Z79.01 Long term (current) use of anticoagulants (principal); I82.509 Chronic embolism and thrombosis of unspecified deep veins of unspecified lower extremity; I48.0 Paroxysmal atrial fibrillation ==

== ENCOUNTER 2019-04-24 08:00 | Outpatient (CLI) | payer MEDICARE, BC | END 2019-04-24 23:59 | disposition home or self-care (01) | LOC: LAB.WCP 08:00 | PROVIDERS: ATTEND Family Medicine | DX: Z79.01 Long term (current) use of anticoagulants (principal); I48.0 Paroxysmal atrial fibrillation; I82.409 Acute embolism and thrombosis of unspecified deep veins of unspecified lower extremity ==

== ENCOUNTER 2019-04-27 07:00 | Outpatient (CLI) | payer MEDICARE, BC ==
[2019-04-27 14:07] LABS: FREE T4 (FREE THYROXINE) 0.79 ng/dL (0.58-1.64)
== END 2019-04-27 23:59 | disposition home or self-care (01) ==
LOC: LAB.WCP 07:00
PROVIDERS: ATTEND Family Medicine
DX: E04.1 Nontoxic single thyroid nodule (principal)
CPT/HCPCS: 36415; 84439; 84443

== ENCOUNTER 2019-05-08 08:00 | Outpatient (CLI) | payer MEDICARE, BC | END 2019-05-08 23:59 | disposition home or self-care (01) | LOC: LAB.WCP 08:00 | PROVIDERS: ATTEND Family Medicine | DX: Z79.01 Long term (current) use of anticoagulants (principal); I48.0 Paroxysmal atrial fibrillation; I82.409 Acute embolism and thrombosis of unspecified deep veins of unspecified lower extremity ==

== ENCOUNTER 2019-05-16 12:04 | Outpatient (CLI) | payer MEDICARE, BC ==
[2019-05-16] MEDS ORDERED: BUFFERED LIDOCAINE 10 ML SYRINGE ONE (12:25)
[2019-05-16] MEDS ORDERED: IOTHALAMATE MEGLUMINE 50 ML VIAL ONE (12:25)
[2019-05-16] MEDS ORDERED: ROPIVACAINE 0.5% PF 20 ML AMPULE EPI ONE (13:13)
[2019-05-16] MEDS ORDERED: TRIAMCINOLONE 40 MG/ML VIAL IM ONE (13:13)
[2019-05-16] MEDS ORDERED: IOTHALAMATE MEGLUMINE 50 ML VIAL IVP ONE (13:13)
--- NOTE | 2019-05-16 13:31 | XRAY Report ---
Reason: LT SLDR ARTHRITIS Procedure Date: 05/16/2019 Accession Number: [id number] / [id number] Procedure: FL - Inj/Aspiration Major Joint CPT Code: Final Report FULL RESULT: EXAM: LEFT SHOULDER STEROID INJECTION WITH FLUOROSCOPIC GUIDANCE EXAM DATE: 05/16/2019 01:02 PM. CLINICAL HISTORY: Left shoulder pain and arthritis. COMPARISON: None. TECHNIQUE: The risks, benefits, and alternatives of the procedure were discussed with the patient. All questions were answered. Written and verbal consent were obtained. The glenohumeral joint was marked under fluoroscopy and prepped and draped in a sterile manner. Local anesthesia was performed with 1% lidocaine. A 22-gauge needle was then inserted into the glenohumeral joint. 1 mL of 40 mg triamcinolone in 3 mL 0.5% ropivacaine was then injected. The needle was removed without immediate complication. Other: None. Fluoroscopy Time: 0.1 minutes. Number of Images: 3. FINDINGS: Bones and joints: No fracture or subluxation. Injection: Fluoroscopic images demonstrate needle placement and contrast in the glenohumeral joint. No contrast extravasation outside of the glenohumeral joint. IMPRESSION: Successful fluoroscopically guided steroid injection of the shoulder. RADIA
== END 2019-05-16 12:05 | disposition home or self-care (01) ==
LOC: DI 12:04
PROVIDERS: ATTEND Orthopaedic Surgery Sports Medicine
DX: M19.012 Primary osteoarthritis, left shoulder (principal)
CPT/HCPCS: 20610; Q9961

== ENCOUNTER 2019-05-25 09:30 | Outpatient (CLI) | payer MEDICARE, BC ==
--- NOTE | 2019-05-26 02:28 | Ultrasound Report ---
Reason: THYROID NODULE Procedure Date: 05/25/2019 Accession Number: [id number] / [id number] Procedure: US - Head or Neck Soft Tissue CPT Code: Final Report FULL RESULT: EXAM: THYROID ULTRASOUND EXAM DATE: 05/25/2019 09:45 AM. CLINICAL HISTORY: THYROID NODULE. COMPARISON: CERVICAL SPINE W/O 04/06/2019 1:09 PM. TECHNIQUE: Real time sonographic imaging of the thyroid was performed by the cdl instructor. Multiple physician relations representative static images were saved for review. FINDINGS: THYROID GLAND: Right Lobe: 5.8 x 2.4 x 2.3 cm, volume 17 cc. Heterogeneous background echotexture. Right Lobe Nodules: 2.4 x 2.2 x 1.7 cm heterogeneous nodule in the midportion of the right lobe. Multiple smaller nodules. Left Lobe: 7.9 x 4.8 x 3.4 cm, volume 67 cc. Heterogeneous background echotexture. Left Lobe Nodules: 4.8 x 4.0 x 3.6 cm nodule in the lower pole. Multiple smaller nodules. Isthmus: 1.5 cm AP. Isthmic Nodules: Heterogeneous echotexture. LYMPH NODES: No adenopathy demonstrated in the central or lateral compartment. OTHER: None. IMPRESSION: Multinodular goiter. Fine-needle aspiration of the 4.8 cm nodule in the left lobe and the 2.4 cm nodule in the right lobe would be recommended by NICOL criteria. Management recommendations are based on 2015 [place] [employer] Management Guidelines for Adult Patients with Thyroid Nodules and Differentiated Thyroid Cancer. RADIA
== END 2019-05-25 09:31 | disposition home or self-care (01) ==
LOC: DI 09:30
PROVIDERS: ATTEND Family Medicine
DX: E04.2 Nontoxic multinodular goiter (principal)
CPT/HCPCS: 76536

== ENCOUNTER 2019-05-26 08:00 | Outpatient (CLI) | payer MEDICARE, BC | END 2019-05-26 23:59 | disposition home or self-care (01) | LOC: LAB.R 08:00 | PROVIDERS: ATTEND Family Medicine | DX: N39.0 Urinary tract infection, site not specified (principal) | CPT/HCPCS: 87086; 87181 ==

== ENCOUNTER 2019-05-29 08:00 | Outpatient (CLI) | payer MEDICARE, BC | END 2019-05-29 23:59 | disposition home or self-care (01) | LOC: LAB.WCP 08:00 | PROVIDERS: ATTEND Family Medicine | DX: I82.409 Acute embolism and thrombosis of unspecified deep veins of unspecified lower extremity (principal); Z79.01 Long term (current) use of anticoagulants ==

== ENCOUNTER 2019-06-05 08:00 | Outpatient (CLI) | payer MEDICARE, BC | END 2019-06-05 23:59 | disposition home or self-care (01) | LOC: LAB.WCP 08:00 | PROVIDERS: ATTEND Family Medicine | DX: Z79.01 Long term (current) use of anticoagulants (principal); I48.0 Paroxysmal atrial fibrillation ==

== ENCOUNTER 2019-06-13 08:00 | Outpatient (CLI) | payer MEDICARE, BC | END 2019-06-13 23:59 | disposition home or self-care (01) | LOC: DI.WCP 08:00 | PROVIDERS: ATTEND Family Medicine | DX: Z53.9 Procedure and treatment not carried out, unspecified reason (principal) ==

== ENCOUNTER 2019-07-04 08:00 | Outpatient (CLI) | payer MEDICARE, BC | END 2019-07-04 23:59 | disposition home or self-care (01) | LOC: LAB.WCP 08:00 | PROVIDERS: ATTEND Family Medicine | DX: I48.0 Paroxysmal atrial fibrillation (principal); Z79.01 Long term (current) use of anticoagulants ==

== ENCOUNTER 2019-07-10 08:00 | Outpatient (CLI) | payer MEDICARE, BC | END 2019-07-10 23:59 | disposition home or self-care (01) | LOC: LAB.WCP 08:00 | PROVIDERS: ATTEND Family Medicine | DX: I48.0 Paroxysmal atrial fibrillation (principal); I82.409 Acute embolism and thrombosis of unspecified deep veins of unspecified lower extremity; Z79.01 Long term (current) use of anticoagulants; Z86.73 Personal history of transient ischemic attack (TIA), and cerebral infarction without residual deficits ==

== ENCOUNTER 2019-09-04 08:00 | Outpatient (CLI) | payer MEDICARE, BC | END 2019-09-04 23:59 | disposition home or self-care (01) | LOC: LAB.WCP 08:00 | PROVIDERS: ATTEND Family Medicine | DX: I48.0 Paroxysmal atrial fibrillation (principal); Z86.73 Personal history of transient ischemic attack (TIA), and cerebral infarction without residual deficits ==

== ENCOUNTER 2019-09-13 08:00 | Outpatient (CLI) | payer MEDICARE, BC ==
[2019-09-13 18:08] LABS: HB2 TOTAL 12.8 g/dL; HEMOGLOBIN A1C 0.54 g/dL
[2019-09-13 18:10] LABS: ALBUMIN 3.6 g/dL (3.2-5.5); ALBUMIN/GLOBULIN RATIO 0.9 (1.0-2.2); ALKALINE PHOSPHATASE 82 IU/L (42-121); ALT ALANINE AMINOTRANSFERASE 19 IU/L (10-60); AST ASPARTATE AMINOTRANSFERASE 23 IU/L (10-42); BILIRUBIN,TOTAL 0.6 mg/dL (0.2-1.0); BUN - BLOOD UREA NITROGEN 25 mg/dL (6-20); CALCIUM 9.2 mg/dL (8.5-10.3); CARBON DIOXIDE - CO2 27 mmol/L (21-32); CHLORIDE 104 mmol/L (101-111); CHOL/HDL RATIO 1.7 (<4.4); CHOLESTEROL 174 mg/dL; CREATININE 0.9 mg/dL (0.4-1.0); GLUCOSE 108 mg/dL (70-100); HDL CHOLESTEROL 100 mg/dL; LDL CHOLESTEROL,CALCULATED 54 mg/dL; LDL/HDL RATIO 0.5 (<4.4); SODIUM 140 mmol/L (135-145); TOTAL PROTEIN 7.5 g/dL (6.7-8.2); VLDL CHOLESTEROL 20 mg/dL
== END 2019-09-13 23:59 | disposition home or self-care (01) ==
LOC: LAB.WCP 08:00
PROVIDERS: ATTEND Family Medicine
DX: E11.9 Type 2 diabetes mellitus without complications (principal); I48.0 Paroxysmal atrial fibrillation; Z79.01 Long term (current) use of anticoagulants; Z86.73 Personal history of transient ischemic attack (TIA), and cerebral infarction without residual deficits
CPT/HCPCS: 36415; 80053; 80061; 83036; 83721

== ENCOUNTER 2019-10-11 08:00 | Outpatient (CLI) | payer MEDICARE, BC | END 2019-10-11 23:59 | disposition home or self-care (01) | LOC: LAB.WCP 08:00 | PROVIDERS: ATTEND Family Medicine | DX: I48.0 Paroxysmal atrial fibrillation (principal); I82.509 Chronic embolism and thrombosis of unspecified deep veins of unspecified lower extremity; Z79.01 Long term (current) use of anticoagulants ==

== ENCOUNTER 2019-12-21 08:00 | Outpatient (CLI) | payer MEDICARE, BC | END 2019-12-21 23:59 | disposition home or self-care (01) | LOC: LAB.WCP 08:00 | PROVIDERS: ATTEND Family Medicine | DX: I48.0 Paroxysmal atrial fibrillation (principal); I82.409 Acute embolism and thrombosis of unspecified deep veins of unspecified lower extremity; Z79.01 Long term (current) use of anticoagulants ==

== ENCOUNTER 2019-12-27 01:01 | Outpatient (CLI) | payer MEDICARE, BC ==
--- NOTE | 2019-12-27 12:19 | XRAY Report ---
PROCEDURE: Wrist 3 View RT INDICATIONS: RIGHT WRIST FRACTURE TECHNIQUE: 3 views of the wrist were acquired. COMPARISON: None available FINDINGS: Bones: A splint material obscures fine bone detail. There is an nondisplaced radial styloid fracture with extension to the articular surface. There may be a distal ulnar impaction fracture as well. Mild osteoarthritic changes are present at the first carpometacarpal joint. Bony alignment remains normal . No suspicious bony lesions. Scaphoid view: Not performed Soft tissues: No suspicious soft tissue calcifications. IMPRESSION: 1. Nondisplaced radial styloid fracture with intra-articular extension. 2. Probable impaction fracture of the distal ulna. 3. Mild osteoarthritis. Reviewed by: Alayna Tam MD on 12/27/2019 12:17 PM PDT Approved by: Alayna Tam MD on 12/27/2019 12:17 PM PDT Station ID: [id number]
== END 2019-12-27 23:59 | disposition home or self-care (01) ==
LOC: DI.WCP 01:01
PROVIDERS: ATTEND Family Medicine
DX: S52.514A Nondisplaced fracture of right radial styloid process, initial encounter for closed fracture (principal); M19.031 Primary osteoarthritis, right wrist

== ENCOUNTER 2020-02-02 08:00 | Outpatient (CLI) | payer MEDICARE, BC ==
--- NOTE | 2020-02-02 15:10 | XRAY Report ---
PROCEDURE: Wrist 3 View RT INDICATIONS: NONDISPLACED FX OF R RADIAL STYLOID PROCESS TECHNIQUE: views of the wrist were acquired. COMPARISON: 12/27/2019 FINDINGS: Bones: Radial styloid fracture in unchanged alignment. There is healing sclerosis. Blunted appearanc e of the ulnar styloid which is unchanged. Diffuse carpal joint degeneration. Soft tissues: No suspicious soft tissue calcifications. IMPRESSION: Unchanged alignment of radial styloid fracture. Reviewed by: Chip Perez MD on 02/02/2020 3:09 PM PDT Approved by: Chip Perez MD on 02/02/2020 3:09 PM PDT Station ID: [id number]
== END 2020-02-02 23:59 | disposition home or self-care (01) ==
LOC: DI.WCP 08:00
PROVIDERS: ATTEND Orthopaedic Surgery
DX: S52.514A Nondisplaced fracture of right radial styloid process, initial encounter for closed fracture (principal); Z79.01 Long term (current) use of anticoagulants

== ENCOUNTER 2020-03-04 15:49 | Outpatient (CLI) | payer MEDICARE, BC ==
--- NOTE | 2020-03-04 15:58 | XRAY Report ---
PROCEDURE: Wrist 3 View RT INDICATIONS: NONDISPLACED FX OF R RADIAL STYLOID PROCESS TECHNIQUE: 3 views of the wrist were acquired. COMPARISON: Right wrist radiographs 02/02/2020, 12/23/2019. FINDINGS: Bones: Unchanged nondisplaced radial styloid fracture. Suspect mild impaction. Ulnar styloid is not s een. Anatomic alignment. Scapholunate interval measures 4 mm. No suspicious bony lesions. Bones appea r osteopenic. Soft tissues: No suspicious soft tissue calcifications. IMPRESSION: Unchanged nondisplaced radial styloid fracture. Osteopenia. Reviewed by: Tim Hanna MD on 03/04/2020 3:57 PM PST Approved by: Tim Hanna MD on 03/04/2020 3:57 PM PST Station ID: [id number]
== END 2020-03-04 23:59 | disposition home or self-care (01) ==
LOC: DI.N 15:49
PROVIDERS: ATTEND Orthopaedic Surgery
DX: S52.514A Nondisplaced fracture of right radial styloid process, initial encounter for closed fracture (principal); M85.831 Other specified disorders of bone density and structure, right forearm

== ENCOUNTER 2020-04-05 08:00 | Outpatient (CLI) | payer MEDICARE, BC | END 2020-04-05 23:59 | disposition home or self-care (01) | LOC: LAB.WCP 08:00 | PROVIDERS: ATTEND Physician Assistant | DX: Z79.01 Long term (current) use of anticoagulants (principal) ==

== ENCOUNTER 2020-04-22 08:00 | Outpatient (CLI) | payer MEDICARE, BC | END 2020-04-22 23:59 | disposition home or self-care (01) | LOC: LAB.WCP 08:00 | PROVIDERS: ATTEND Family Medicine | DX: Z79.01 Long term (current) use of anticoagulants (principal) ==

== ENCOUNTER 2020-05-04 09:08 | Outpatient (CLI) | payer MEDICARE, BC ==
--- NOTE | 2020-05-06 08:57 | MRI Report ---
PROCEDURE: Lumbar Spine W/O INDICATIONS: LUMBAGO W/SCIATICA TECHNIQUE: Noncontrast sagittal T1 spin echo and T2 fast echo, sagittal STIR, axial T1 and T2 fast spin echo thr ough the lumbar spine. In cases with scoliosis, additional coronal T2 fast spin echo may be performe d. COMPARISON: None. FINDINGS: Image quality: Excellent. Alignment and Curvature: There is normal bony alignment. Bone Marrow: Marrow is of normal overall signal. No acute vertebral body compression fractures. Spinal Cord: Conus medullaris terminates at the L1 level. Visualized cord demonstrates normal signa l and size. Paraspinous Soft Tissues: No paravertebral masses. T12-L1: Minimal diffuse disc bulge with no significant foraminal or central canal stenosis. L1-L2: Minimal diffuse disc bulge with no significant foraminal or central canal stenosis L2-L3: Mild diffuse disc bulge with no significant foraminal or central canal stenosis. L3-L4: Mild diffuse disc bulge causing minimal foraminal stenosis. There is no central canal stenos is. L4-L5: Mild diffuse disc bulge. The ligamentum flavum and facets are hypertrophic causing mild fora cara and central canal stenosis. L5-S1: No disc bulge. The foramina and central canal are patent. IMPRESSION: 1. Multilevel relatively mild lumbar spondylosis causing foraminal stenosis as above. 2. No focal protrusion or extrusion. 3. Mild central canal stenosis at L4-5. Reviewed by: Dale Miguel on 05/06/2020 8:56 AM PST Approved by: Dale Miguel on 05/06/2020 8:56 AM PST Station ID: [id number]
== END 2020-05-04 09:09 | disposition home or self-care (01) ==
LOC: DI 09:08
PROVIDERS: ATTEND Registered Nurse
DX: M47.26 Other spondylosis with radiculopathy, lumbar region (principal); M48.061 Spinal stenosis, lumbar region without neurogenic claudication
CPT/HCPCS: 72148

== ENCOUNTER 2020-05-04 10:02 | Emergency (ER) | payer MEDICARE, BC ==
[2020-05-04 10:43] LABS: BILIRUBIN,URINE NEGATIVE (NEGATIVE); GLUCOSE, URINE (UA) NEGATIVE (NEGATIVE); KETONES,URINE (UA) NEGATIVE (NEGATIVE); LEUKOCYTE ESTERASE, URINE SMALL (NEGATIVE); NITRITE,URINE POSITIVE (NEGATIVE); OCCULT BLOOD,URINE NEGATIVE (NEGATIVE); PH,URINE 5.5 PH (5.0-7.5); PROTEIN,URINE NEGATIVE (NEGATIVE); UROBILINOGEN,URINE 0.2 (NORMAL) E.U./dL (NORMAL)
[2020-05-04 10:46] LABS: CLARITY,URINE HAZY (CLEAR)
[2020-05-04 10:47] LABS: BACTERIA,URINE Moderate /HPF (None Seen); RBC,URINE 0-5 /HPF (0-5); SQUAMOUS EPITHELIAL CELL,UR NONE SEEN (<= Few)
--- NOTE | 2020-05-04 11:37 | ED Physician Documentation ---
History of Present Illness - Stated complaint Stated Complaint: LOWER ABD PX, CLOUDY URINE - Chief complaint Chief Complaint: UTI - History obtained from History obtained from: Patient, Family (son) - Additonal information Additional information: 69-year-old woman with past medical history of UTI 1 week ago status post Macrobid, seen by Dr. Shaw at [facility] urology, presents with persistent dysuria that has worsened over the past couple days associated with suprapubic abdominal pain that is aching constant gradual onset mild, nonradiating. Patient denies fevers, nausea vomiting or other symptoms. She does have chronic back pain for which she was getting an MRI incidentally today. Review of Systems Ten Systems: 10 systems reviewed and negative Constitutional: denies: Fever, Chills GI: reports: Abdominal Pain. 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 : Kidney stones HEENT: Chronic vision loss Psych: Depression, Anxiety Musculoskeletal: Osteoarthritis, Chronic back pain Derm: None - Past Surgical History Past Surgical History: Yes General: Cholecystectomy Ortho: Knee replacement, Other HEENT: Cataracts - Present Medications Home Medications: Ambulatory Orders Medication Instructions Recorded Confirmed FLUoxetine [PROzac] 20 mg PO DAILY 03/23/15 02/27/16 Nortriptyline [Pamelor] 25 mg PO .HS 03/23/15 02/27/16 buPROPion [Wellbutrin Sr] 150 mg PO DAILY 03/23/15 02/27/16 lisinopriL [Lisinopril] 10 mg PO DAILY 03/23/15 02/27/16 Atorvastatin Calcium [Lipitor] 80 mg PO DAILY 05/02/15 02/27/16 Pantoprazole Sodium 40 mg PO DAILY 02/27/16 02/27/16 Tolterodine Tartrate [Detrol LA] 4 mg PO DAILY 02/27/16 02/27/16 Warfarin [Coumadin] 1 mg PO DAILY 02/27/16 02/27/16 Meclizine [Antivert] 25 mg PO Q6H PRN #30 tablet 10/09/17 dexAMETHasone [Decadron] 4 mg PO DAILY #5 tablet 10/09/17 Ondansetron Odt [Zofran] 4 mg TL Q6H PRN #10 tablet 01/24/18 cephALEXin [Keflex] 500 mg PO Q6H #28 capsule 01/24/18 Oxycodone HCl/Acetaminophen 1 - 2 each PO Q6H PRN #14 tablet 01/01/19 [Percocet 5-325 mg Tablet] Ciprofloxacin [Cipro] 500 mg PO Q12H 5 Days #10 tablet 05/04/20 - Allergies Allergies/Adverse Reactions: Allergies Allergy/AdvReac Type Severity Reaction Status Date / Time morphine Allergy Unknown Verified 05/04/20 10:09 phenobarbital Allergy Hives Verified 05/04/20 10:09 doxycycline AdvReac Nausea Verified 05/04/20 10:09 - Social History Does the pt smoke?: No Smoking Status: Never smoker Does the pt drink ETOH?: No Does the pt have substance abuse?: No - Immunizations Immunizations are current?: Yes - POLST Patient has POLST: No PD ED PE NORMAL - Vitals Vital signs reviewed: Yes - General General: Alert and oriented X 3 - HEENT HEENT: Atraumatic, PERRL, EOMI - Neck Neck: Supple, no meningeal sign - Cardiac Cardiac: RRR - Respiratory Respiratory: No respiratory distress, Clear bilaterally - Abdomen Abdomen: Non tender, Non distended, Other (Discomfort to suprapubic palpation) - Female Female : Deferred - Rectal Rectal: Deferred - Back Back: No CVA TTP - Derm Derm: Normal color - Extremities Extremities: No deformity - Neuro Neuro: Alert and oriented X 3 - Psych Psych: Normal mood, Normal affect Results - Vitals Vitals: Vital Signs - 24 hr 05/04/20 05/04/20 10:09 11:45 Temperature 36.6 C 36.4 C L Heart Rate 92 98 Respiratory 18 16 Rate Blood Pressure 148/72 H 127/62 O2 Saturation 97 95 Oxygen O2 Source Room air - Labs Labs: Laboratory Tests 05/04/20 10:30 Urine Color YELLOW Urine Clarity HAZY Urine pH 5.5 Ur Specific [place] 1.025 Urine Protein NEGATIVE Urine Glucose (UA) NEGATIVE Urine Ketones NEGATIVE Urine Occult Blood NEGATIVE Urine Nitrite POSITIVE H Urine Bilirubin NEGATIVE Urine Urobilinogen 0.2 (NORMAL) Ur Leukocyte Esterase SMALL H Urine RBC 0-5 Urine WBC 11-25 H Ur Squamous Epith Cells NONE SEEN Urine Bacteria Moderate H Ur Microscopic Review INDICATED Urine Culture Comments INDICATED PD MEDICAL DECISION MAKING - ED course ED course: 69-year-old woman presents with UTI refractory to Macrobid. Will discharge on ciprofloxacin with urology follow-up on Wednesday. Departure - Departure Disposition: Home, Self Care Clinical Impression: Cystitis Condition: Good Instructions: ED UTI Cystitis Female Prescriptions: Ciprofloxacin [Cipro] 500 mg PO Q12H 5 Days #10 tablet Comments: You were seen in the emergency department for UTI. You were on macrobid ( nitrofurantoin) before, and I am now prescribing a stronger antibiotic since that didn't work. Follow-up with Dr. Delgado at [facility] urology on Wednesday. Return to the ED for any new or worsening symptoms. Follow-up with your primary doctor Dr. Manriquez. Discharge Date/Time: 05/04/20 11:46
[2020-05-04 11:47] VITALS: BP 127/62
== END 2020-05-04 11:46 | disposition home or self-care (01) ==
LOC: ED 10:02
DX: N30.90 Cystitis, unspecified without hematuria (principal); I10 Essential (primary) hypertension; I48.91 Unspecified atrial fibrillation; E11.9 Type 2 diabetes mellitus without complications; Z79.01 Long term (current) use of anticoagulants
CPT/HCPCS: 81001; 81003; 87077; 87086; 87181; 99283; 99284

== ENCOUNTER 2020-05-10 08:00 | Outpatient (CLI) | payer MEDICARE, BC | END 2020-05-10 23:59 | disposition home or self-care (01) | LOC: LAB.WCP 08:00 | PROVIDERS: ATTEND Family Medicine | DX: Z79.01 Long term (current) use of anticoagulants (principal) ==

== ENCOUNTER 2020-05-17 08:00 | Outpatient (CLI) | payer MEDICARE, BC | END 2020-05-17 23:59 | disposition home or self-care (01) | LOC: LAB.N 08:00 | PROVIDERS: ATTEND Family Medicine | DX: Z79.01 Long term (current) use of anticoagulants (principal) ==

== ENCOUNTER 2020-05-24 08:00 | Outpatient (CLI) | payer MEDICARE, BC | END 2020-05-24 23:59 | disposition home or self-care (01) | LOC: LAB.WCP 08:00 | PROVIDERS: ATTEND Nurse Practitioner Family | DX: Z79.01 Long term (current) use of anticoagulants (principal) ==

== ENCOUNTER 2020-06-03 08:00 | Outpatient (CLI) | payer MEDICARE, BC | END 2020-06-03 23:59 | disposition home or self-care (01) | LOC: LAB.N 08:00 | PROVIDERS: ATTEND Family Medicine | DX: I48.0 Paroxysmal atrial fibrillation (principal) ==

== ENCOUNTER 2020-06-05 09:29 | Emergency (ER) | payer MEDICARE, BC ==
[2020-06-05] MEDS ORDERED: SODIUM CHLORIDE 0.9% 1,000 ML IV STA (09:56)
--- NOTE | 2020-06-05 10:22 | XRAY Report ---
PROCEDURE: Chest 1 View X-Ray INDICATIONS: Chest Pain TECHNIQUE: One view of the chest was acquired. COMPARISON: None FINDINGS: Surgical changes and devices: None. Lungs and pleura: No pleural effusions or pneumothorax. Lungs are clear. Mediastinum: Large hiatal hernia. Mediastinal contours otherwise appear normal. Heart size is maya l. Bones and chest wall: No suspicious bony lesions. Overlying soft tissues appear unremarkable. IMPRESSION: 1. Large hiatal hernia. 2. No acute process. Reviewed by: Carlyn Lin MD on 06/05/2020 10:21 AM [facility] Approved by: Carlyn Lin MD on 06/05/2020 10:21 AM [facility] Station ID: [id number]
[2020-06-05 10:26] LABS: BASOPHILS % (AUTO) 0.3 %; EOSINOPHILS # (AUTO) 0.1 10^3/uL (0.0-0.7); EOSINOPHILS % (AUTO) 0.9 %; HGB - HEMOGLOBIN 12.6 g/dL (12.0-16.0); LYMPHOCYTES # (AUTO) 2.7 10^3/uL (1.5-3.5); LYMPHOCYTES % (AUTO) 23.2 %; MEAN CORPUSCULAR HEMOGLOBIN 29.4 pg (27.0-31.0); MEAN CORPUSCULAR HGB CONC 31.1 g/dL (32.0-36.0); MEAN CORPUSCULAR VOLUME 94.4 fL (81.0-99.0); MEAN PLATELET VOLUME 9.7 fL (7.9-10.8); MONOCYTES # (AUTO) 1.1 10^3/uL (0.0-1.0); MONOCYTES % (AUTO) 9.3 %; NEUTROPHILS # (AUTO) 7.7 10^3/uL (1.5-6.6); PLT - PLATELET COUNT 320 10^3/uL (130-450); RED BLOOD COUNT 4.29 10^6/uL (4.20-5.40); WHITE BLOOD COUNT 11.7 x10^3/uL (4.8-10.8)
[2020-06-05 10:40] LABS: INR 1.2 (0.8-1.2); PT - PROTHROMBIN TIME 13.2 secs (9.9-12.6)
--- NOTE | 2020-06-05 10:53 | ED Physician Documentation ---
PD HPI DYSPNEA - Stated complaint Stated Complaint: SOA - Chief complaint Chief Complaint: Resp - History obtained from History obtained from: Patient - Additional information Additional information: Patient comes emergency department chief complaint of episode of shortness of breath last night. Patient states that she was laying in bed and suddenly began to feel short of breath. She states that she did not have any chest pain, but that her chest just felt tight and when she would try to take a deep breath, it felt as though she could only get a little bit of air in. Patient states this went on for several hours and did not resolve until she got to her doctor's office this morning. Patient states that she has not had any cough or fever. She feels fine now. She has not noticed any increasing swelling or pain in her legs. She states that this is happened to her on occasion but that her primary care physician was concerned because the patient has history of DVT and has been off her Coumadin for a week because of a steroid shot she received to her back. Patient was sent here to the emergency department over concerns that she may have developed a PE. Review of Systems Ten Systems: 10 systems reviewed and negative Constitutional: reports: Reviewed and negative Eyes: reports: Reviewed and negative Ears: reports: Reviewed and negative Nose: reports: Reviewed and negative Throat: reports: Reviewed and negative Cardiac: reports: Reviewed and negative. denies: Chest pain / pressure Respiratory: reports: Dyspnea. 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 : Kidney stones HEENT: Chronic vision loss Psych: Depression, Anxiety Musculoskeletal: Osteoarthritis, Chronic back pain Derm: None - Past Surgical History Past Surgical History: Yes General: Cholecystectomy Ortho: Knee replacement, Other HEENT: Cataracts - Present Medications Home Medications: Ambulatory Orders Medication Instructions Recorded Confirmed FLUoxetine [PROzac] 20 mg PO DAILY 03/23/15 02/27/16 Nortriptyline [Pamelor] 25 mg PO .HS 03/23/15 02/27/16 buPROPion [Wellbutrin Sr] 150 mg PO DAILY 03/23/15 02/27/16 lisinopriL [Lisinopril] 10 mg PO DAILY 03/23/15 02/27/16 Atorvastatin Calcium [Lipitor] 80 mg PO DAILY 05/02/15 02/27/16 Pantoprazole Sodium 40 mg PO DAILY 02/27/16 02/27/16 Tolterodine Tartrate [Detrol LA] 4 mg PO DAILY 02/27/16 02/27/16 Warfarin [Coumadin] 1 mg PO DAILY 02/27/16 02/27/16 Meclizine [Antivert] 25 mg PO Q6H PRN #30 tablet 10/09/17 dexAMETHasone [Decadron] 4 mg PO DAILY #5 tablet 10/09/17 Ondansetron Odt [Zofran] 4 mg TL Q6H PRN #10 tablet 01/24/18 cephALEXin [Keflex] 500 mg PO Q6H #28 capsule 01/24/18 Oxycodone HCl/Acetaminophen 1 - 2 each PO Q6H PRN #14 tablet 01/01/19 [Percocet 5-325 mg Tablet] Ciprofloxacin [Cipro] 500 mg PO Q12H 5 Days #10 tablet 05/04/20 - Allergies Allergies/Adverse Reactions: Allergies Allergy/AdvReac Type Severity Reaction Status Date / Time morphine Allergy Unknown Verified 06/05/20 09:34 phenobarbital Allergy Hives Verified 06/05/20 09:34 doxycycline AdvReac Nausea Verified 06/05/20 09:34 - Social History Does the pt smoke?: No Smoking Status: Never smoker Does the pt drink ETOH?: No Does the pt have substance abuse?: Yes Substance Use and Type: CBD oil / Products - Immunizations Immunizations are current?: Yes - POLST Patient has POLST: No PD ED PE NORMAL - Vitals Vital signs reviewed: Yes - General General: Alert and oriented X 3, No acute distress, Well developed/nourished - HEENT HEENT: Atraumatic, PERRL, EOMI, Moist mucous membranes - Neck Neck: Supple, no meningeal sign - Cardiac Cardiac: RRR, Strong equal pulses, Other (2 out of 6 systolic murmur.) - Respiratory Respiratory: No respiratory distress, Clear bilaterally - Abdomen Abdomen: Soft, Non tender, Non distended - Derm Derm: Normal color, Warm and dry, No rash - Extremities Extremities: No deformity, No edema, No calf tenderness / cord - Neuro Neuro: Alert and oriented X 3, Other (Grossly normal.) - Psych Psych: Normal mood, Normal affect Results - Vitals Vitals: Oxygen O2 Source Room air - EKG (time done) 0958 Rate: Rate (enter#) (78) Rhythm: NSR [place]: Normal Intervals: Normal [place] QRS: Normal Ischemia: Other (nonspecific, minor ST changes) - Labs Labs: Laboratory Tests 06/05/20 06/05/20 06/05/20 10:23 10:23 10:23 WBC 11.7 H RBC 4.29 Hgb 12.6 Hct 40.5 MCV 94.4 MCH 29.4 MCHC 31.1 L RDW 13.0 Plt Count 320 MPV 9.7 Neut # (Auto) 7.7 H Lymph # (Auto) 2.7 [place] # (Auto) 1.1 H Eos # (Auto) 0.1 Baso # (Auto) 0.0 Absolute Nucleated RBC 0.00 Nucleated RBC % 0.0 PT 13.2 H INR 1.2 D-Dimer 231.0 Sodium 139 Potassium 4.6 Chloride 100 L Carbon Dioxide 27 Anion Gap 12.0 BUN 17 Creatinine 0.7 Estimated GFR (MDRD) 82 L Glucose 109 H Calcium 9.2 Total Bilirubin 0.5 AST 18 ALT 14 Alkaline Phosphatase 78 Troponin I High Sens B-Natriuretic Peptide Total Protein 7.7 Albumin 3.6 Globulin 4.1 Albumin/Globulin Ratio 0.9 L Lipase 20 L 06/05/20 06/05/20 10:23 10:23 WBC RBC Hgb Hct MCV MCH MCHC RDW Plt Count MPV Neut # (Auto) Lymph # (Auto) [place] # (Auto) Eos # (Auto) Baso # (Auto) Absolute Nucleated RBC Nucleated RBC % PT INR D-Dimer Sodium Potassium Chloride Carbon Dioxide Anion Gap BUN Creatinine Estimated GFR (MDRD) Glucose Calcium Total Bilirubin AST ALT Alkaline Phosphatase Troponin I High Sens 12.3 B-Natriuretic Peptide 72 Total Protein Albumin Globulin Albumin/Globulin Ratio Lipase - Rads (name of study) CXR Radiology: Final report received, EMP read indepedently, See rad report (hiatal hernia) PD MEDICAL DECISION MAKING - ED course Complexity details: reviewed results, re-evaluated patient, considered differential, d/w patient ED course: The patient was worked up with labs, EKG, and chest x-ray, all of which were unremarkable. Specifically, her d-dimer was normal at 231. Her INR, not surprisingly, given that her Coumadin has recently been held, was normal at 1.2. Hours after sx, her troponin is still negative. She was stable in the emergency department and vital look very good. Additionally, the patient's lungs were clear and she did not have any laboring of respirations. I d/w pt that given all of the above, I do not feel CTA is indicated. The pt is going to resume her Coumadin in the next couple of days, and there is no indication otherwise for a change in management at this time. We have discussed the usual indications for return. Departure - Departure Disposition: 01 Home, Self Care Clinical Impression: Dyspnea Qualifiers: Dyspnea type: unspecified Qualified Code(s): R06.00 - Dyspnea, unspecified Condition: Stable Instructions: ED Dyspnea Shortness of Breath Comments: Your labs, EKG, and chest x-ray look good. Specifically, there is no evidence of a heart attack, and the lab that we used to look for clots is within normal limits. As such, it is extremely unlikely that you have a blood clot and most likely, your symptoms were caused by something else. At this point in time, it is not clear what caused you to feel short of breath in the middle of the night. The fact that your symptoms have resolved is a good sign. Please follow-up with your doctor for any further concerns. If you redevelop shortness of breath, or if you develop any chest pain or other concerning symptoms, please come straight to the emergency department. Discharge Date/Time: 06/05/20 12:13
[2020-06-05 11:28] LABS: ALBUMIN 3.6 g/dL (3.2-5.5); ALBUMIN/GLOBULIN RATIO 0.9 (1.0-2.2); BILIRUBIN,TOTAL 0.5 mg/dL (0.2-1.0); CALCIUM 9.2 mg/dL (8.5-10.3); CREATININE 0.7 mg/dL (0.4-1.0); TOTAL PROTEIN 7.7 g/dL (6.7-8.2)
[2020-06-05 12:02] VITALS: BP 173/62
== END 2020-06-05 12:13 | disposition home or self-care (01) ==
LOC: ED 09:29
DX: R06.00 Dyspnea, unspecified (principal); Z86.718 Personal history of other venous thrombosis and embolism; I10 Essential (primary) hypertension; E11.9 Type 2 diabetes mellitus without complications; I48.91 Unspecified atrial fibrillation; Z79.01 Long term (current) use of anticoagulants
CPT/HCPCS: 36415; 80053; 83690; 83880; 84484; 85025; 85379; 85610; 93005; 96360; 99284

== ENCOUNTER 2020-06-10 08:00 | Outpatient (CLI) | payer MEDICARE, BC | END 2020-06-10 23:59 | disposition home or self-care (01) | LOC: LAB.N 08:00 | PROVIDERS: ATTEND Family Medicine | DX: I48.0 Paroxysmal atrial fibrillation (principal); Z79.01 Long term (current) use of anticoagulants ==

== ENCOUNTER 2020-06-17 08:00 | Outpatient (CLI) | payer MEDICARE, BC | END 2020-06-17 23:59 | disposition home or self-care (01) | LOC: LAB.N 08:00 | PROVIDERS: ATTEND Family Medicine | DX: I48.0 Paroxysmal atrial fibrillation (principal); Z79.01 Long term (current) use of anticoagulants ==

== ENCOUNTER 2020-06-26 22:20 | Outpatient (CLI) | payer MEDICARE, BC | END 2020-06-26 22:21 | disposition critical access hospital (66) | LOC: EMS 22:20 | PROVIDERS: ATTEND Emergency Medicine | DX: R53.1 Weakness (principal); R47.81 Slurred speech | CPT/HCPCS: A0425; A0429 ==

== ENCOUNTER 2020-06-26 22:42 | Emergency (ER) | payer MEDICARE, BC ==
[2020-06-26 23:30] LABS: BILIRUBIN,URINE NEGATIVE (NEGATIVE); GLUCOSE, URINE (UA) NEGATIVE (NEGATIVE); KETONES,URINE (UA) NEGATIVE (NEGATIVE); LEUKOCYTE ESTERASE, URINE LARGE (NEGATIVE); NITRITE,URINE POSITIVE (NEGATIVE); OCCULT BLOOD,URINE SMALL (NEGATIVE); PROTEIN,URINE 30 mg/dL (NEGATIVE); UROBILINOGEN,URINE 0.2 (NORMAL) E.U./dL (NORMAL)
[2020-06-26 23:32] LABS: CLARITY,URINE CLOUDY (CLEAR)
[2020-06-26] MEDS ORDERED: AMPICILLIN/SULBACTAM 1.5 GM in SODIUM CHLORIDE 0.9% MINIBAG 100 ML IV STA (23:34)
[2020-06-26 23:36] LABS: BACTERIA,URINE Many /HPF (None Seen); RBC,URINE 0-5 /HPF (0-5); SQUAMOUS EPITHELIAL CELL,UR FEW Squamous (<= Few); WBC,URINE >25 /HPF (0-5)
[2020-06-26 23:47] LABS: BASOPHILS % (AUTO) 0.5 %; EOSINOPHILS # (AUTO) 0.1 10^3/uL (0.0-0.7); EOSINOPHILS % (AUTO) 1.6 %; HCT - HEMATOCRIT 36.2 % (37.0-47.0); HGB - HEMOGLOBIN 11.2 g/dL (12.0-16.0); LYMPHOCYTES # (AUTO) 1.6 10^3/uL (1.5-3.5); LYMPHOCYTES % (AUTO) 18.9 %; MEAN CORPUSCULAR HEMOGLOBIN 28.9 pg (27.0-31.0); MEAN CORPUSCULAR HGB CONC 30.9 g/dL (32.0-36.0); MEAN CORPUSCULAR VOLUME 93.5 fL (81.0-99.0); MEAN PLATELET VOLUME 9.2 fL (7.9-10.8); MONOCYTES # (AUTO) 0.6 10^3/uL (0.0-1.0); MONOCYTES % (AUTO) 7.7 %; NEUTROPHILS # (AUTO) 5.9 10^3/uL (1.5-6.6); NEUTROPHILS % (AUTO) 70.8 %; PLT - PLATELET COUNT 311 10^3/uL (130-450); RED BLOOD COUNT 3.87 10^6/uL (4.20-5.40); RED CELL DISTRIBUTION WIDTH 12.8 % (12.0-15.0); WHITE BLOOD COUNT 8.3 x10^3/uL (4.8-10.8)
[2020-06-26 23:59] LABS: ALBUMIN 3.2 g/dL (3.2-5.5); ALBUMIN/GLOBULIN RATIO 0.8 (1.0-2.2); BILIRUBIN,TOTAL 0.7 mg/dL (0.2-1.0); CALCIUM 9.2 mg/dL (8.5-10.3); CREATININE 0.8 mg/dL (0.4-1.0); POTASSIUM 4.2 mmol/L (3.5-5.0); TOTAL PROTEIN 7.1 g/dL (6.7-8.2)
--- NOTE | 2020-06-27 00:15 | ED Physician Documentation ---
PD HPI ALTERED MENTAL STATUS - Stated complaint Stated Complaint: AMS, WEAKNESS, SLURRING - Chief complaint Chief Complaint: Neuro - History obtained from History obtained from: Patient - History of Present Illness Timing - onset: Today Timing - duration: Hours Timing - details: Gradual onset, Still present Quality / character: Confused Associated symptoms: Urinary sx. No: Fever, Headache, Stiff neck, Dyspnea, Cough, NVD, General weakness, Focal weakness, Seizure activity, Syncope Contributing factors: Anticoagulated Basline status: Alert and oriented X 3, Ambulatory, Independent Similar symptoms before: Diagnosis (UTI) Recently seen: Not recently seen - Additional information Additional information: 69-year-old female with history of recurrent urinary tract infection has developed urinary symptoms with frequency and urgency and she feels that she is a bit confused today. She denies any lilian weakness she denies any fall or head injury. Review of Systems Constitutional: denies: Fever Eyes: denies: Decreased vision Ears: denies: Ear pain Nose: denies: Congestion Throat: denies: Sore throat Cardiac: denies: Chest pain / pressure, Palpitations Respiratory: denies: Dyspnea, Cough GI: denies: Abdominal Pain, Nausea, Vomiting : reports: Dysuria, Frequency Skin: denies: Rash, Lesions Musculoskeletal: denies: Neck pain, Back pain, Extremity pain Neurologic: denies: Generalized weakness, Focal weakness, Numbness PD PAST MEDICAL HISTORY - Past Medical History Past Medical History: Yes Cardiovascular: Hypertension, Deep vein thrombosis, Atrial fibrillation Respiratory: Shortness of breath Neuro: None Endocrine/Autoimmune: Type 2 diabetes GI: GERD, GI bleed 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 : Kidney stones HEENT: Chronic vision loss Psych: Depression, Anxiety Musculoskeletal: Osteoarthritis, Chronic back pain Derm: None - Past Surgical History Past Surgical History: Yes General: Cholecystectomy Ortho: Knee replacement, Other HEENT: Cataracts - Present Medications Home Medications: Ambulatory Orders Medication Instructions Recorded Confirmed FLUoxetine [PROzac] 20 mg PO DAILY 03/23/15 06/26/20 Nortriptyline [Pamelor] 25 mg PO .HS 03/23/15 06/26/20 buPROPion [Wellbutrin Sr] 150 mg PO DAILY 03/23/15 06/26/20 lisinopriL [Lisinopril] 10 mg PO DAILY 03/23/15 06/26/20 Atorvastatin Calcium [Lipitor] 80 mg PO DAILY 05/02/15 06/26/20 Pantoprazole Sodium 40 mg PO DAILY 02/27/16 06/26/20 Tolterodine Tartrate [Detrol LA] 4 mg PO DAILY 02/27/16 06/26/20 Warfarin [Coumadin] 1 mg PO DAILY 02/27/16 06/26/20 Meclizine [Antivert] 25 mg PO Q6H PRN #30 tablet 10/09/17 06/26/20 dexAMETHasone [Decadron] 4 mg PO DAILY #5 tablet 10/09/17 06/26/20 Ondansetron Odt [Zofran] 4 mg TL Q6H PRN #10 tablet 01/24/18 06/26/20 cephALEXin [Keflex] 500 mg PO Q6H #28 capsule 01/24/18 06/26/20 Oxycodone HCl/Acetaminophen 1 - 2 each PO Q6H PRN #14 tablet 01/01/19 06/26/20 [Percocet 5-325 mg Tablet] Ciprofloxacin [Cipro] 500 mg PO Q12H 5 Days #10 tablet 05/04/20 Amox/Clav 875/125 [Augmentin] 1 each PO Q12H #14 tablet 06/27/20 - Allergies Allergies/Adverse Reactions: Allergies Allergy/AdvReac Type Severity Reaction Status Date / Time morphine Allergy Unknown Verified 06/26/20 23:02 phenobarbital Allergy Hives Verified 06/26/20 23:02 doxycycline AdvReac Nausea Verified 06/26/20 23:02 - Social History Does the pt smoke?: No Smoking Status: Never smoker Does the pt drink ETOH?: No Does the pt have substance abuse?: Yes - Immunizations Immunizations are current?: Yes - POLST Patient has POLST: No PD ED PE NORMAL - Vitals Vital signs reviewed: Yes (hypertensive) - General General: Alert and oriented X 3, No acute distress, Well developed/nourished - HEENT HEENT: Atraumatic, PERRL, EOMI - Neck Neck: Supple, no meningeal sign, No bony TTP - Cardiac Cardiac: RRR, No murmur - Respiratory Respiratory: No respiratory distress, Clear bilaterally - Abdomen Abdomen: Normal bowel sounds, Soft, Non tender, Non distended, No organomegaly - Back Back: No CVA TTP, No spinal TTP - Derm Derm: Normal color, Warm and dry, No rash - Extremities Extremities: No deformity, No edema - Neuro Neuro: Alert and oriented X 3, 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, No motor deficit, No sensory deficit, Normal speech Eye Opening: Spontaneous Motor: Obeys Commands Verbal: Oriented GCS Score: 15 - Psych Psych: Normal mood, Normal affect Results - Vitals Vitals: Vital Signs - 24 hr 06/26/20 06/26/20 06/27/20 23:03 23:07 01:07 Temperature 36.6 C 36.6 C 36.6 C Heart Rate 88 89 91 Respiratory 16 16 16 Rate Blood Pressure 153/69 H 153/69 H 163/75 H O2 Saturation 96 96 98 Oxygen O2 Source Room air - Labs Labs: Laboratory Tests 06/26/20 06/26/20 06/26/20 22:36 22:36 22:36 WBC 8.3 RBC 3.87 L Hgb 11.2 L Hct 36.2 L MCV 93.5 MCH 28.9 MCHC 30.9 L RDW 12.8 Plt Count 311 MPV 9.2 Neut # (Auto) 5.9 Lymph # (Auto) 1.6 [place] # (Auto) 0.6 Eos # (Auto) 0.1 Baso # (Auto) 0.0 Absolute Nucleated RBC 0.00 Nucleated RBC % 0.0 Sodium 139 Potassium 4.2 Chloride 101 Carbon Dioxide 27 Anion Gap 11.0 BUN 21 H Creatinine 0.8 Estimated GFR (MDRD) 71 L Glucose 102 H Lactic Acid 1.2 Calcium 9.2 Total Bilirubin 0.7 AST 20 ALT 10 Alkaline Phosphatase 80 Total Protein 7.1 Albumin 3.2 Globulin 3.9 Albumin/Globulin Ratio 0.8 L Lipase 16 L Urine Color Urine Clarity Urine pH Ur Specific [place] Urine Protein Urine Glucose (UA) Urine Ketones Urine Occult Blood Urine Nitrite Urine Bilirubin Urine Urobilinogen Ur Leukocyte Esterase Urine RBC Urine WBC Ur Squamous Epith Cells Urine Bacteria Ur Microscopic Review Urine Culture Comments 06/26/20 23:00 WBC RBC Hgb Hct MCV MCH MCHC RDW Plt Count MPV Neut # (Auto) Lymph # (Auto) [place] # (Auto) Eos # (Auto) Baso # (Auto) Absolute Nucleated RBC Nucleated RBC % Sodium Potassium Chloride Carbon Dioxide Anion Gap BUN Creatinine Estimated GFR (MDRD) Glucose Lactic Acid Calcium Total Bilirubin AST ALT Alkaline Phosphatase Total Protein Albumin Globulin Albumin/Globulin Ratio Lipase Urine Color YELLOW Urine Clarity CLOUDY Urine pH 6.0 Ur Specific [place] 1.020 Urine Protein 30 H Urine Glucose (UA) NEGATIVE Urine Ketones NEGATIVE Urine Occult Blood SMALL H Urine Nitrite POSITIVE H Urine Bilirubin NEGATIVE Urine Urobilinogen 0.2 (NORMAL) Ur Leukocyte Esterase LARGE H Urine RBC 0-5 Urine WBC >25 H Ur Squamous Epith Cells FEW Squamous Urine Bacteria Many H Ur Microscopic Review INDICATED Urine Culture Comments INDICATED - Rads (name of study) CT head Radiology: Prelim report reviewed (Impression: 1. No acute intracranial findings.), EMP read indepedently, See rad report chest Radiology: Prelim report reviewed (Impression: 1. No acute cardiopulmonary abnormality.), EMP read indepedently, See rad report Procedures - IVC sono (time) 1210 Bedside IVC sono: IVC measures (cm) (0.89), Dehydration (est 2 liter deficit) PD MEDICAL DECISION MAKING - ED course Complexity details: reviewed old records, reviewed results, re-evaluated patient, considered differential, d/w patient ED course: 69-year-old female with a history of urinary tract infection frequently has another urinary tract infection and she is a bit dehydrated on interrogation of the inferior vena cava. She is administered intravenous saline and given a dose of Unasyn based on sensitivities from her past 5 urines. She has had infection with E. coli, E. coli with extended spectrum beta-lactamase, and Klebsiella. We will place her on some Augmentin as an outpatient. Departure - Departure Disposition: 01 Home, Self Care Clinical Impression: Dehydration UTI (urinary tract infection) Qualifiers: Urinary tract infection type: acute cystitis Hematuria presence: without hematuria Qualified Code(s): N30.00 - Acute cystitis without hematuria Condition: Stable Instructions: ED Dehydration, ED UTI Cystitis Female Follow-Up: Delio Manriquez DO [Provider Admit Priv/Credential] - Prescriptions: Amox/Clav 875/125 [Augmentin] 1 each PO Q12H #14 tablet
[2020-06-27 01:31] VITALS: BP 163/75
[2020-06-27 01:38] LABS: INR 1.6 (0.8-1.2)
--- NOTE | 2020-06-27 08:22 | CT Report ---
PROCEDURE: HEAD WO INDICATIONS: ams TECHNIQUE: Noncontrast 4.5 mm thick angled axial sections acquired from the foramen magnum to the vertex. For r adiation dose reduction, the following was used: automated exposure control, adjustment of mA and/or kV according to patient size. COMPARISON: 04/06/2019. FINDINGS: Image quality: Excellent. CSF spaces: Basal cisterns are patent. No extra-axial fluid collections. Ventricles are normal in size and shape. Brain: No midline shift. No intracranial masses or hemorrhage. Mild atrophy is seen. [place]-white ma tter interface is normal. Skull and face: Calvarium and visualized facial bones are intact, without suspicious lesions. Sinuses: Visualized sinuses and mastoids are clear. IMPRESSION: 1. No CT evidence of acute intracranial pathology 2. Mild atrophy appropriate for patient's age. No discrepancies. Reviewed by: John Herring MD on 06/27/2020 8:21 AM PST Approved by: John Herring MD on 06/27/2020 8:21 AM PST Station ID: [id number]
--- NOTE | 2020-06-27 08:54 | XRAY Report ---
PROCEDURE: Chest 1 View X-Ray INDICATIONS: chest pain TECHNIQUE: One view of the chest was acquired. COMPARISON: 06/05/2020 FINDINGS: Surgical changes and devices: None. Lungs and pleura: No pleural effusions or pneumothorax. Lungs are clear. Mediastinum: Mediastinal contours appear normal. Heart size is enlarged. Large hiatal hernia is ag ain seen and better evaluated on previous study. Bones and chest wall: No suspicious bony lesions. Overlying soft tissues appear unremarkable. IMPRESSION: No acute cardiopulmonary pathology. No significant changes from previous study. No discrepancies. Reviewed by: John Herring MD on 06/27/2020 8:52 AM [facility] Approved by: John Herring MD on 06/27/2020 8:52 AM PST Station ID: [id number]
== END 2020-06-27 01:49 | disposition home or self-care (01) ==
LOC: EDUNIT# → ED 22:42
DX: N30.00 Acute cystitis without hematuria (principal); E86.0 Dehydration; R41.0 Disorientation, unspecified; I10 Essential (primary) hypertension; E11.9 Type 2 diabetes mellitus without complications; I48.91 Unspecified atrial fibrillation; Z86.718 Personal history of other venous thrombosis and embolism; Z79.01 Long term (current) use of anticoagulants; Z87.440 Personal history of urinary (tract) infections
CPT/HCPCS: 36415; 80053; 81001; 81003; 83605; 83690; 85025; 85610; 87040; 87086; 96365; 99283; 99284

== ENCOUNTER 2020-07-18 09:22 | Outpatient (CLI) | payer MEDICARE, BC | END 2020-07-18 09:23 | disposition left against medical advice (07) | LOC: EMS 09:22 | DX: I95.9 Hypotension, unspecified (principal) ==

== ENCOUNTER 2020-07-18 11:09 | Inpatient (IN) | payer MEDICARE, BC ==
[2020-07-18] MEDS ORDERED: SODIUM CHLORIDE 0.9% 1,000 ML IV STA (11:58)
--- NOTE | 2020-07-18 12:02 | ED Physician Documentation ---
History of Present Illness - Stated complaint Stated Complaint: NECK/BODY PX - Chief complaint Chief Complaint: General - History obtained from History obtained from: Patient, Family - History of Present Illness Timing: How many weeks ago (1) - Additonal information Additional information: 69-year-old female with a history of chronic neck and back pain has had increase in her pain recently she has been taking more pain medication than usual. She has been having difficulty with keeping up her ADLs. The daughter notes that she has 7 meals from [employer] of stacked up in her refrigerator. She is bringing them inside but she is not eating them. Last night the patient had a number of oxycodone pills next to her on her easy chair and she appeared conf used consistent with excessive medication use. This morning her daughter is evaluating her and has brought her to the emergency department with a reduced blood pressure and failure to thrive. She lives in her home with her son and he is gone at work during the day and is really unable to help get her up and down. She has Owvwliw-Dwncl-Wkqqw foot and chronic pain. She herself states that she is depressed she denies suicidal ideation. She denies attempting suicide with overdose. Review of Systems Unable to obtain: Confused, Other (history from daughter) Constitutional: denies: Fever Nose: denies: Congestion Throat: denies: Sore throat Cardiac: denies: Chest pain / pressure, Palpitations Respiratory: reports: Dyspnea, Cough GI: reports: Diarrhea. 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: None : Kidney stones HEENT: Chronic vision loss Psych: Depression, Anxiety Musculoskeletal: Osteoarthritis, Chronic back pain Derm: None - Past Surgical History Past Surgical History: Yes General: Cholecystectomy Ortho: Knee replacement, Other HEENT: Cataracts - Present Medications Home Medications: Ambulatory Orders Medication Instructions Recorded Confirmed FLUoxetine [PROzac] 20 mg PO DAILY 03/23/15 06/26/20 Nortriptyline [Pamelor] 25 mg PO .HS 03/23/15 06/26/20 buPROPion [Wellbutrin Sr] 150 mg PO DAILY 03/23/15 06/26/20 lisinopriL [Lisinopril] 10 mg PO DAILY 03/23/15 06/26/20 Atorvastatin Calcium [Lipitor] 80 mg PO DAILY 05/02/15 06/26/20 Pantoprazole Sodium 40 mg PO DAILY 02/27/16 06/26/20 Tolterodine Tartrate [Detrol LA] 4 mg PO DAILY 02/27/16 06/26/20 Warfarin [Coumadin] 1 mg PO DAILY 02/27/16 06/26/20 Meclizine [Antivert] 25 mg PO Q6H PRN #30 tablet 10/09/17 06/26/20 dexAMETHasone [Decadron] 4 mg PO DAILY #5 tablet 10/09/17 06/26/20 Ondansetron Odt [Zofran] 4 mg TL Q6H PRN #10 tablet 01/24/18 06/26/20 cephALEXin [Keflex] 500 mg PO Q6H #28 capsule 01/24/18 06/26/20 Oxycodone HCl/Acetaminophen 1 - 2 each PO Q6H PRN #14 tablet 01/01/19 06/26/20 [Percocet 5-325 mg Tablet] Ciprofloxacin [Cipro] 500 mg PO Q12H 5 Days #10 tablet 05/04/20 Amox/Clav 875/125 [Augmentin] 1 each PO Q12H #14 tablet 06/27/20 - Allergies Allergies/Adverse Reactions: Allergies Allergy/AdvReac Type Severity Reaction Status Date / Time morphine Allergy Unknown Verified 07/18/20 11:31 phenobarbital Allergy Hives Verified 07/18/20 11:31 doxycycline AdvReac Nausea Verified 07/18/20 11:31 - Social History Does the pt smoke?: No Smoking Status: Never smoker Does the pt drink ETOH?: No Does the pt have substance abuse?: Yes Substance Use and Type: CBD oil / Products - Immunizations Immunizations are current?: Yes - POLST Patient has POLST: No PD ED PE NORMAL - Vitals Vital signs reviewed: Yes (diastolic hypertension) - General General: Well developed/nourished, Other (69-year-old female wearing a wig in a mask is mumbling under her mask and appears withdrawn. She is slow to respond.) - HEENT HEENT: Atraumatic, PERRL, EOMI - Neck Neck: Supple, no meningeal sign - Cardiac Cardiac: RRR, No murmur - Respiratory Respiratory: No respiratory distress, Other (bibasilar rhonchi and diminished breath sounds) - Abdomen Abdomen: Soft, Non tender - Back Back: No CVA TTP, No spinal TTP - Derm Derm: Normal color, Warm and dry, No rash - Extremities Extremities: No deformity, No edema, Other (dried skin cracked with escar L>R. Weakness on the right side is not demonstrated in comparision to the left. ) - Neuro Neuro: beater lead 2-12 intact, No motor deficit, No sensory deficit Eye Opening: Spontaneous Motor: Obeys Commands Verbal: Confused GCS Score: 14 - Psych Psych: Normal mood, Normal affect Results - Vitals Vitals: Vital Signs - 24 hr 07/18/20 07/18/20 07/18/20 11:20 11:31 11:59 Temperature 37 C Heart Rate 85 87 97 Respiratory 18 18 19 Rate Blood Pressure 109/88 H 98/51 L 107/60 O2 Saturation 96 94 98 07/18/20 14:32 Temperature Heart Rate 99 Respiratory 15 Rate Blood Pressure 107/52 L O2 Saturation 94 Oxygen O2 Source Room air - EKG (time done) 1219 Rate: Rate (enter#) (87) Rhythm: NSR Ischemia: Q waves, Other (baseline artifact anterior) Compare to prior EKG: Unchanged from prior EKG (SPT 06-05-2020 no changes ) Computer interpretation: Disagree with computer (I do not see ST elevation in the anterior leads ) - Labs Labs: Laboratory Tests 07/18/20 07/18/20 07/18/20 12:45 13:10 13:10 WBC 10.9 H RBC 3.68 L Hgb 10.8 L Hct 35.2 L MCV 95.7 MCH 29.3 MCHC 30.7 L RDW 13.0 Plt Count 281 MPV 10.1 Neut # (Auto) 8.1 H Lymph # (Auto) 1.5 Ross # (Auto) 1.0 Eos # (Auto) 0.1 Baso # (Auto) 0.0 Absolute Nucleated RBC 0.00 Nucleated RBC % 0.0 Sodium 138 Potassium 5.6 H Chloride 100 L Carbon Dioxide 21 Anion Gap 17.0 H BUN 97 H* Creatinine 4.4 H Estimated GFR (MDRD) 10 L Glucose 118 H Lactic Acid Calcium 8.5 Total Bilirubin 0.5 AST 17 ALT 12 Alkaline Phosphatase 86 Troponin I High Sens Total Protein 7.5 Albumin 3.0 L Globulin 4.5 H Albumin/Globulin Ratio 0.7 L Lipase 16 L Urine Color YELLOW Urine Clarity SL. CLOUDY Urine pH 5.0 Ur [address] [place] 1.025 Urine Protein NEGATIVE Urine Glucose (UA) NEGATIVE Urine Ketones NEGATIVE Urine Occult Blood NEGATIVE Urine Nitrite NEGATIVE Urine Bilirubin NEGATIVE Urine Urobilinogen 0.2 (NORMAL) Ur Leukocyte Esterase MODERATE H Urine RBC 0-5 Urine WBC >25 H Ur Squamous Epith Cells FEW Squamous Urine Bacteria Few Ur Microscopic Review INDICATED Urine Culture Comments INDICATED 07/18/20 07/18/20 13:10 13:10 WBC RBC Hgb Hct MCV MCH MCHC RDW Plt Count MPV Neut # (Auto) Lymph # (Auto) Ross # (Auto) Eos # (Auto) Baso # (Auto) Absolute Nucleated RBC Nucleated RBC % Sodium Potassium Chloride Carbon Dioxide Anion Gap BUN Creatinine Estimated GFR (MDRD) Glucose Lactic Acid 0.7 Calcium Total Bilirubin AST ALT Alkaline Phosphatase Troponin I High Sens 8.9 Total Protein Albumin Globulin Albumin/Globulin Ratio Lipase Urine Color Urine Clarity Urine pH Ur Specific [place] Urine Protein Urine Glucose (UA) Urine Ketones Urine Occult Blood Urine Nitrite Urine Bilirubin Urine Urobilinogen Ur Leukocyte Esterase Urine RBC Urine WBC Ur Squamous Epith Cells Urine Bacteria Ur Microscopic Review Urine Culture Comments - Rads (name of study) chest Radiology: Prelim report reviewed (Impression: 1. Large hiatal hernia. Left basilar atelectasis and possible consolidation.), EMP read indepedently, See rad report Procedures - IVC sono (time) 1155 Bedside IVC sono: IVC measures (cm) (0.99), Dehydration (est 2 liter deficit) PD MEDICAL DECISION MAKING - ED course Complexity details: reviewed old records, reviewed results, re-evaluated patient, considered differential, d/w patient, d/w family ED course: 69-year-old female with a history of chronic pain and urinary tract infection has become depressed, is not eating, has taken too many pain pills and this morning has a low blood pressure. Her urine is reported to smell foul. She is hypotensive and IV access is always challenging and after multiple attempts access was obtained by Dr. Triana and we were able to get blood samples but unable to give fluid. She is identified as having 2 infections both the urine and chest appear infected and we are identifying sepsis at 1300. Unable to give IV antibiotic we have initial management as Rocephin 1gm IM and we have asked our good friends in anesthesia to place an adequate line for fluid resuscitation. After some trouble with the IV access we are able to provide fluids and antibiotic. (the rocephin was not given IM). Voicemail is left for Dr. Ribera in the case at [phone]. Departure - Departure Disposition: [facility] DC/Xfer Clinical Impression: Dehydration, Acute kidney injury UTI (urinary tract infection) Qualifiers: Urinary tract infection type: acute cystitis Hematuria presence: without hematuria Qualified Code(s): N30.00 - Acute cystitis without hematuria Pneumonia Qualifiers: Pneumonia type: due to unspecified organism Laterality: left Lung location: lower lobe of lung Qualified Code(s): J18.9 - Pneumonia, unspecified organism Condition: Serious
--- NOTE | 2020-07-18 12:36 | XRAY Report ---
PROCEDURE: Chest 1 View X-Ray INDICATIONS: chest pain TECHNIQUE: One view of the chest was acquired. COMPARISON: 06/27/2020 FINDINGS: Surgical changes and devices: None. Lungs and pleura: No pleural effusions or pneumothorax. Left basilar atelectasis and possible consol idation. Mediastinum: Mediastinal contours appear normal. Heart size is normal. Large hiatal hernia. Bones and chest wall: No suspicious bony lesions. Overlying soft tissues appear unremarkable. IMPRESSION: 1. Large hiatal hernia. 2. Left basilar atelectasis and possible consolidation. Reviewed by: Wild Meadows MD on 07/18/2020 12:35 PM PDT Approved by: Wild Meadows MD on 07/18/2020 12:35 PM PDT Station ID: [id number]
[2020-07-18 12:58] LABS: BILIRUBIN,URINE NEGATIVE (NEGATIVE); GLUCOSE, URINE (UA) NEGATIVE (NEGATIVE); KETONES,URINE (UA) NEGATIVE (NEGATIVE); LEUKOCYTE ESTERASE, URINE MODERATE (NEGATIVE); NITRITE,URINE NEGATIVE (NEGATIVE); OCCULT BLOOD,URINE NEGATIVE (NEGATIVE); PROTEIN,URINE NEGATIVE (NEGATIVE); UROBILINOGEN,URINE 0.2 (NORMAL) E.U./dL (NORMAL)
[2020-07-18 13:01] LABS: CLARITY,URINE SL. CLOUDY (CLEAR)
[2020-07-18 13:03] LABS: RBC,URINE 0-5 /HPF (0-5); SQUAMOUS EPITHELIAL CELL,UR FEW Squamous (<= Few); WBC,URINE >25 /HPF (0-5)
[2020-07-18 13:04] LABS: BACTERIA,URINE Few /HPF (None Seen)
[2020-07-18 13:20] LABS: BASOPHILS % (AUTO) 0.2 %; EOSINOPHILS # (AUTO) 0.1 10^3/uL (0.0-0.7); EOSINOPHILS % (AUTO) 1.3 %; HCT - HEMATOCRIT 35.2 % (37.0-47.0); HGB - HEMOGLOBIN 10.8 g/dL (12.0-16.0); LYMPHOCYTES # (AUTO) 1.5 10^3/uL (1.5-3.5); LYMPHOCYTES % (AUTO) 14.2 %; MEAN CORPUSCULAR HEMOGLOBIN 29.3 pg (27.0-31.0); MEAN CORPUSCULAR HGB CONC 30.7 g/dL (32.0-36.0); MEAN CORPUSCULAR VOLUME 95.7 fL (81.0-99.0); MEAN PLATELET VOLUME 10.1 fL (7.9-10.8); NEUTROPHILS # (AUTO) 8.1 10^3/uL (1.5-6.6); NEUTROPHILS % (AUTO) 74.9 %; PLT - PLATELET COUNT 281 10^3/uL (130-450); RED BLOOD COUNT 3.68 10^6/uL (4.20-5.40); WHITE BLOOD COUNT 10.9 x10^3/uL (4.8-10.8)
[2020-07-18] MEDS ORDERED: LIDOCAINE 1% 2 ML VIAL MC ONE ×2 (13:24→16:26)
[2020-07-18] MEDS ORDERED: cefTRIAXone 1 GM VIAL IM STA (13:24)
[2020-07-18 13:35] LABS: ALBUMIN/GLOBULIN RATIO 0.7 (1.0-2.2); BILIRUBIN,TOTAL 0.5 mg/dL (0.2-1.0); CALCIUM 8.5 mg/dL (8.5-10.3); CREATININE 4.4 mg/dL (0.4-1.0); POTASSIUM 5.6 mmol/L (3.5-5.0); TOTAL PROTEIN 7.5 g/dL (6.7-8.2)
[2020-07-18 15:42] LABS: B. PARAPERTUSSIS- RESP PCR PAN NOT DETECTED; B. PERTUSSIS- RESP PCR PANEL NOT DETECTED; C. PNEUMONIAE- RESP PCR PANEL NOT DETECTED; CORONAVIRUS 229E-RESP PCR NOT DETECTED; CORONAVIRUS HKU1-RESP PCR NOT DETECTED; CORONAVIRUS NL63-RESP PCR NOT DETECTED; CORONAVIRUS OC43-RESP PCR NOT DETECTED; HUMAN METAPNEUMOVIRUS NOT DETECTED; INFLUENZA A- RESP PCR PANEL NOT DETECTED; INFLUENZA B - RESP PCR PANEL NOT DETECTED; M. PNEUMONIAE- RESP PCR PANEL NOT DETECTED; PARAINFLUENZA VIRUS 1 NOT DETECTED; PARAINFLUENZA VIRUS 2 NOT DETECTED; PARAINFLUENZA VIRUS 3 NOT DETECTED; PARAINFLUENZA VIRUS 4 NOT DETECTED; RHINOVIRUS/ENTEROVIRUS NOT DETECTED; RSV- RESP PCR PANEL NOT DETECTED; SARS-CoV-2 -RESP PCR PANEL NOT DETECTED
--- NOTE | 2020-07-18 15:50 | CONSULTATION NOTE ---
Consultation Report: consulted for placement of PICC line. Pt poor candidate for PICC line due to inability to properly position pt for placement. U/S guided 20g 2.25in IV placed in R forearm-flushes easily, aspirates blood easily. ED MD and RN notified.
[2020-07-18] MEDS ORDERED: cefTRIAXone 1 GM VIAL IVP STA (16:26)
[2020-07-18] MEDS ORDERED: AZITHROMYCIN INJ 500 MG in SODIUM CHLORIDE 0.9% 250 ML IV STA (16:27)
[2020-07-18] MEDS ORDERED: AZITHROMYCIN 250 MG TABLET PO SCH (16:34)
--- NOTE | 2020-07-18 16:36 | HISTORY & PHYSICAL EXAMINATION ---
Chief Complaint - Chief Complaint Chief Complaint: increase of pain History of Present Illness - Admitted From Admitted From:: ER - History Obtained From Records Reviewed: [employer] History obtained from: ER report and [employer] Exam Limitations: confused - History of Present Illness HPI Comment/Other: This is a 69-year-old female with a Medical history significant of Morbidly obese, Gxpxaad-Mrmti-Isasd foot, chronic neck and back pain with hx of accident opiates and a benzodiazepine overdose, Stroke, A fibrillation with Coumadin, CKD, hypertension, history of DVT, moderate pulmonary hypertension, UTI who present ER complain of increasing on her neck and back pain. pt is poor history. Called to pt's daughter Jana. she report her mother became very confused "not herself", sleep more, and she became incontinence. pt was not drinking and eating. she report her mother took her pain medications more than your scheduled to have. She had these kind history before. Pt has no fever but with cough, phlegm, and shortness of breath. She has no chest pain. Her family become more difficult to take care of pt. She brought pt to see her PCP and hope to have replace to SNF but was not success yet. In ER, pt was found to have creatinine is 4.4, her baseline was around 1, BUN 97, baseline BUN was around 21, potassium 5.6, slight elevated WBC 10.9, UA show pyuria with elevated WBC and positive Esterase, pt has hx of multiple times of urinary tract infection. INR is 8.7. Checks x-ray show large hiatal hernia as pt's hx, and Left basilar atelectasis and possible consolidation. pt is afebrile, BP 109/88 otherwise she is Hemodynamic stable. Patient's daughter confirm patient is DNR CODE STATUS. 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 Patient's father at age 62 from lung cancer and colon cancer. Both the patient and her sister had genetic disease of Hzhamvi-Hcftq-Xictl foot. 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 Patient has a history overdosage accidentally with opiate use - POLST Patient has POLST: No Meds/Allgy - Home Medications Home Medications: Ambulatory Orders Medication Instructions Recorded Confirmed FLUoxetine [PROzac] 20 mg PO DAILY 03/23/15 06/26/20 Nortriptyline [Pamelor] 25 mg PO .HS 03/23/15 06/26/20 buPROPion [Wellbutrin Sr] 150 mg PO DAILY 03/23/15 06/26/20 lisinopriL [Lisinopril] 10 mg PO DAILY 03/23/15 06/26/20 Atorvastatin Calcium [Lipitor] 80 mg PO DAILY 05/02/15 06/26/20 Pantoprazole Sodium 40 mg PO DAILY 02/27/16 06/26/20 Tolterodine Tartrate [Detrol LA] 4 mg PO DAILY 02/27/16 06/26/20 Warfarin [Coumadin] 1 mg PO DAILY 02/27/16 06/26/20 Meclizine [Antivert] 25 mg PO Q6H PRN #30 tablet 10/09/17 06/26/20 dexAMETHasone [Decadron] 4 mg PO DAILY #5 tablet 10/09/17 06/26/20 Ondansetron Odt [Zofran] 4 mg TL Q6H PRN #10 tablet 01/24/18 06/26/20 cephALEXin [Keflex] 500 mg PO Q6H #28 capsule 01/24/18 06/26/20 Oxycodone HCl/Acetaminophen 1 - 2 each PO Q6H PRN #14 tablet 01/01/19 06/26/20 [Percocet 5-325 mg Tablet] Ciprofloxacin [Cipro] 500 mg PO Q12H 5 Days #10 tablet 05/04/20 Amox/Clav 875/125 [Augmentin] 1 each PO Q12H #14 tablet 06/27/20 - Allergies Allergies/Adverse Reactions: Allergies Allergy/AdvReac Type Severity Reaction Status Date / Time morphine Allergy Unknown Verified 07/18/20 11:31 phenobarbital Allergy Hives Verified 07/18/20 11:31 doxycycline AdvReac Nausea Verified 07/18/20 11:31 Review of Systems - Constitutional Constitutional: reports: Weakness, Poor appetite. denies: Fever, Chills - Eyes Eyes: denies: Pain, Field loss, Vision loss - Ears, Nose & Throat Ears, Nose & Throat: denies: Ear pain, Nosebleeds, Dental decay - Cardiovascular Cariovascular: reports: Exertional dyspnea. denies: Palpitations, Chest pain, Syncope - Respiratory Respiratory: reports: Cough, Sputum production, SOB with exertion. denies: Hemoptysis, Orthopnea - Gastrointestinal Gastrointestinal: denies: Abdominal pain, Constipation, Diarrhea, Nausea, Vomiting - Genitourinary Genitourinary: reports: Incontinence. denies: Urgency - Musculoskeletal Musculoskeletal: reports: Muscle pain. denies: Limited range of motion - Integumentary Integumentary: denies: Rash, Lesions - Neurological Neurological: reports: General weakness. denies: Focal weakness, Headache, Numbness, Abnormal gait, Seizures, Incoordination - Psychiatric Psychiatric: denies: Suicidal, Delusions - Endocrine Endocrine: denies: Polydypsia - Hematologic/Lymphatic Hematologic/Lymphatic: denies: Bruising, Blood clots Prior Level of Functionality: Patient is living with his son, dependent. Exam - Vital Signs Vital Signs: Vital Signs x48h Temp Pulse Resp BP Pulse Ox 07/18/20 16:07 105 H 16 96/70 96 07/18/20 14:32 99 15 107/52 L 94 07/18/20 11:59 97 19 107/60 98 07/18/20 11:31 87 18 98/51 L 94 07/18/20 11:20 37 C 85 18 109/88 H 96 - Physical Exam General Appearance: positive: Alert, Mild distress. negative: Lethargic Eyes Bilateral: positive: Normal inspection, PERRL, No lid inflammation ENT: positive: ENT inspection nml, No signs of dehydration. negative: Purulent nasal drainage Neck: positive: Nml inspection, Trachea midline. negative: Thyromegaly, Tracheal deviation Respiratory: positive: Chest non-tender, No respiratory distress, Rales. negati ve: Breath sounds nml Cardiovascular: positive: Regular rate & rhythm, No murmur, Tachycardia. negative: Bradycardia, Systolic murmur, Diastolic murmur Peripheral Pulses: positive: 2+ Abdomen: positive: Non-tender, Nml bowel sounds, No distention. negative: Tenderness Back: positive: Nml inspection Skin: positive: Color nml, Warm, Dry. negative: Cyanosis, Diaphoresis, Pallor Extremities: positive: Non-tender, Nml appearance. negative: Calf tenderness Neurologic/Psychiatric: positive: Sensation nml, Slurred/abnml speech. negative: Weakness, Sensory loss, Facial droop Conclusion/Plan - Problem List (1) JP (acute kidney injury) Conclusion/Plan: Patient's daughter reported patient did not drink water and eating in the home. Patient creatine is 4.4 now, her baseline 1.0. it is likely prerenal azotemia. We will have intravenous IV fluids, oil laboratory analyst, hold nephrotoxic agent (2) Supratherapeutic INR Conclusion/Plan: Patient takes Coumadin in the home for her atrial fibrillation, her INR is 8.7, Likely caused from patient's worsening kidney function. We will order IV of vitamin K intravenous, continue check PT and INR, precautions bleeding. (3) Pneumonia Conclusion/Plan: Patient was report by her daughter to have cough, phlegm, shortness breathing. Chest x-ray reviews consolidation, patient had a slightly elevated WBC. We will treat with azithromycin adjusted by Kidney GFR dosage, rocephin. order of the blood culture (4) UTI (urinary tract infection) Conclusion/Plan: Patient had many times of urine tract infection, urinalysis show pyuria. We will treat antibiotics Rocephin Qualifiers: Urinary tract infection type: acute cystitis Hematuria presence: without hematuria Qualified Code(s): N30.00 - Acute cystitis without hematuria (5) Hyperkalemia Conclusion/Plan: Potassium 5.6, likely from worsening kidney function, intravenous IV fluids, continue monitor potassium (6) Atrial fibrillation Conclusion/Plan: Patient has atrial fibrillation, who heart rate is 105 now. We will give patient intravenous metoprolol as needed, Will resume home medication after confirmed. Hold Coumadin, Continue check PT and INR Qualifiers: Atrial fibrillation type: paroxysmal Qualified Code(s): I48.0 - Paroxysmal atrial fibrillation (7) Narcotic overdose Conclusion/Plan: Patient has history of opiates overdosage accidentally. This time patient possible has overdosage of opiates, but Patient has no respiratory distress with normal RR, no Dizziness. We will continue neuro check Qualifiers: Encounter type: initial encounter Injury intent: accidental or unintentional Qualified Code(s): T40.601A - Poisoning by unspecified narcotics, accidental (unintentional), initial encounter (8) Chronic pain Conclusion/Plan: Patient has history of chronic back pain, we will hold pain medication opiates now, Since patient has possible accidentally overdosage opiates - Lab Results Fish Bones: 07/18/20 13:10 07/18/20 13:10 Core Measures - Anticipated LOS I expect patient to be DC'd or transferred within 96 hours.: Yes - DVT/VTE - Prophylaxis VTE/DVT Device ordered at admit?: Yes VTE/DVT Prophylaxis med ordered at admit?: Yes
[2020-07-18] MEDS ORDERED: cefTRIAXone 1 GM in SODIUM CHLORIDE 0.9% MINIBAG 100 ML IV STA (16:45)
[2020-07-18] MEDS ORDERED: SODIUM POLYSTYRENE SULFONATE 15 GM/60 ML BOTTLE PO STA (17:25)
[2020-07-18 17:40] LABS: PT - PROTHROMBIN TIME 84.5 secs (9.9-12.6)
[2020-07-18 18:03] LABS: INR 8.7 (0.8-1.2)
[2020-07-18 18:05] LABS: AMPHETAMINE SCREEN,URINE NEGATIVE (NEGATIVE); BARBITURATE SCREEN,UR NEGATIVE (NEGATIVE); BENZODIAZEPINES SCREEN, URINE NEGATIVE (NEGATIVE); COCAINE SCREEN URINE NEGATIVE (NEGATIVE); METHADONE SCREEN, URINE NEGATIVE (NEGATIVE); METHAMPHETAMINES SCREEN, URINE NEGATIVE (NEGATIVE); MUDS CUTOFF CONCENTRATIONS CUTOFF CONC BELOW:; OPIATE SCREEN, URINE NEGATIVE (NEGATIVE); OXYCODONE SCREEN, URINE POSITIVE (NEGATIVE); PROPOXYPHENE SCREEN, URINE NEGATIVE (NEGATIVE); THC CANNABINOID SCREEN, URINE NEGATIVE (NEGATIVE); TRICYCLIC ANTIDEPRESSANT,URINE POSITIVE (NEGATIVE)
[2020-07-18] MEDS ORDERED: PHYTONADIONE 10 MG/ML AMP IVP STA (18:14)
[2020-07-18] MEDS: SODIUM CHLORIDE FLUSH 0.9% 10 ML SYRINGE IVP SCH (19:11)
[2020-07-18 20:25] LABS: ESTIMATED AVERAGE GLUCOSE 137 mg/dL (70-100); HEMOGLOBIN A1c% 6.4 % (4.27-6.07)
[2020-07-18] MEDS: SODIUM CHLORIDE 0.9% 1,000 ML IV SCH (20:37)
[2020-07-18] MEDS: AZITHROMYCIN 250 MG TABLET PO SCH (20:50)
[2020-07-18] MEDS: HEPARIN 5,000 UNIT/ML VIAL SUBQ SCH (21:22)
[2020-07-18] MEDS: FAMOTIDINE 20 MG TABLET PO SCH (21:31)
[2020-07-18] MEDS: ACETAMINOPHEN 325 MG TABLET PO PRN (21:31)
[2020-07-19] MEDS: SODIUM CHLORIDE FLUSH 0.9% 10 ML SYRINGE IVP SCH ×4 (00:26→23:41)
[2020-07-19] MEDS: SODIUM CHLORIDE 0.9% 1,000 ML IV SCH ×3 (03:34→15:05)
[2020-07-19 07:12] LABS: BASOPHILS % (AUTO) 0.3 %; EOSINOPHILS # (AUTO) 0.1 10^3/uL (0.0-0.7); EOSINOPHILS % (AUTO) 1.1 %; HCT - HEMATOCRIT 29.1 % (37.0-47.0); HGB - HEMOGLOBIN 9.1 g/dL (12.0-16.0); LYMPHOCYTES # (AUTO) 1.5 10^3/uL (1.5-3.5); LYMPHOCYTES % (AUTO) 16.2 %; MEAN CORPUSCULAR HEMOGLOBIN 29.4 pg (27.0-31.0); MEAN CORPUSCULAR HGB CONC 31.3 g/dL (32.0-36.0); MEAN CORPUSCULAR VOLUME 94.2 fL (81.0-99.0); MEAN PLATELET VOLUME 10.8 fL (7.9-10.8); MONOCYTES # (AUTO) 0.9 10^3/uL (0.0-1.0); MONOCYTES % (AUTO) 10.2 %; NEUTROPHILS # (AUTO) 6.4 10^3/uL (1.5-6.6); PLT - PLATELET COUNT 266 10^3/uL (130-450); RED BLOOD COUNT 3.09 10^6/uL (4.20-5.40); RED CELL DISTRIBUTION WIDTH 12.8 % (12.0-15.0)
[2020-07-19 07:14] LABS: CREATININE 2.8 mg/dL (0.4-1.0); POTASSIUM 4.9 mmol/L (3.5-5.0)
[2020-07-19] MEDS ORDERED: diltiaZEM CD 120 MG CAPSULE PO SCH (07:46)
[2020-07-19 07:52] LABS: PT - PROTHROMBIN TIME 21.1 secs (9.9-12.6)
--- NOTE | 2020-07-19 08:54 | XRAY Report ---
PROCEDURE: Chest 1 View X-Ray INDICATIONS: sob TECHNIQUE: One view of the chest was acquired. COMPARISON: 07/18/20 FINDINGS: Surgical changes and devices: None. Lungs and pleura: No pleural effusions or pneumothorax. Lungs are clear. Mediastinum: Mediastinal contours appear normal. Heart size is at the upper limits of normal. A pre viously described hiatal hernia is not as well-seen on this x-ray.. Bones and chest wall: No suspicious bony lesions. Overlying soft tissues appear unremarkable. IMPRESSION: No acute cardiopulmonary abnormality. Reviewed by: Dale Miguel on 07/19/2020 8:53 AM PDT Approved by: Dale Miguel on 07/19/2020 8:53 AM PDT Station ID: [id number]
[2020-07-19] MEDS ORDERED: cefTRIAXone 1 GM in SODIUM CHLORIDE 0.9% MINIBAG 100 ML IV SCH (09:00)
[2020-07-19] MEDS ORDERED: AZITHROMYCIN INJ 500 MG in SODIUM CHLORIDE 0.9% 250 ML IV SCH (09:00)
[2020-07-19] MEDS: diltiaZEM 30 MG TABLET PO SCH ×4 (09:27→23:41)
[2020-07-19] MEDS: SACCHAROMYCES BOULARDII 250 MG CAPSULE PO SCH ×2 (09:27→15:58)
[2020-07-19] MEDS: FAMOTIDINE 20 MG TABLET PO SCH ×2 (09:27→20:50)
[2020-07-19] MEDS: AZITHROMYCIN 250 MG TABLET PO SCH (09:28)
[2020-07-19] MEDS: HEPARIN 5,000 UNIT/ML VIAL SUBQ SCH ×2 (09:28→20:50)
--- NOTE | 2020-07-19 14:37 | PHARMACY PROGRESS NOTE ---
- Best Possible Medication History Admit Date and Time: 07/18/20 1620 Processed by: Pharmacy Medication History completed: Yes Patient Interview: Completed Secondary Source(s): Physician records, Pharmacy records, Insurance records (PATIENT INTERVIEWED BY PHARMACY. PATIENT'S DAUGHTER ABLE TO CONFIRM HOME MEDICATIONS ) As the person ultimately responsible for medication therapy, providers are able to order a medication from an existing home medication list in [facility] via the "Reconcile Routine" prior to Confirmation of that medication by cryptologic support specialist. Such practice is discouraged except when the physician, in their clinical judgment, deems that a medical need exists for a medication without regard to previous use.
[2020-07-19] MEDS ORDERED: PIPERACILLIN/TAZOBACTAM 3.375 GM in SODIUM CHLORIDE 0.9% MINIBAG 100 ML IV SCH (15:00)
--- NOTE | 2020-07-19 15:01 | PROVIDER PROGRESS NOTE ---
Assessment/Plan - Problem List (1) Bacteremia Assessment/Plan: 07/19 ordered Patient two tube blood culture which show Gram-positive cocci. Patient has no fever. Patient had a slightly elevated WBC, now become normal range. Continue Zosyn with azithromycin, wait for culture sensitivity, Repeat blood culture in 48 hours If no fever. Continue intravenous IV fluids (2)acute renal failure Conclusion/Plan: 42,Improved, Creatinine 2.8 today, from yesterday 4.4. Continue intravenous IV fluids, continue color laboratory technician Patient's daughter reported patient did not drink water and eating in the home. Patient creatine is 4.4 now, her baseline 1.0. it is likely prerenal azotemia. We will have intravenous IV fluids, color laboratory technician, hold nephrotoxic agent (3) Supratherapeutic INR Conclusion/Plan: 42, improved, INR is 2.0 after patient was given vitamin K. We will continue Coumadin, continue check PT and INR Patient takes Coumadin in the home for her atrial fibrillation, her INR is 8.7, Likely caused from patient's worsening kidney function. We will order IV of vitamin K intravenous, continue check PT and INR, precautions bleeding. (4) Pneumonia Conclusion/Plan: 42, patient today need oxygen support, show SOB, we will repeat chest x-ray, Continue antibiotics, Continue oxygen support as needed Patient was report by her daughter to have cough, phlegm, shortness breathing. Chest x-ray reviews consolidation, patient had a slightly elevated WBC. We will treat with azithromycin adjusted by Kidney GFR dosage, rocephin. order of the blood culture (5) UTI (urinary tract infection) Conclusion/Plan: 42, urine culture show positive E. coli, continue antibiotics Patient had many times of urine tract infection, urinalysis show pyuria. We will treat antibiotics Rocephin (6) Hyperkalemia Conclusion/Plan: 42, resolved, potassium 4.9 Potassium 5.6, likely from worsening kidney function, intravenous IV fluids, continue monitor potassium (7) Atrial fibrillation Conclusion/Plan: 42, patient had elevated heart rate, Cardizem 4 times per day, now her pulse is controlled, We may switch to Cardizem CD on tomorrow Patient has atrial fibrillation, who heart rate is 105 now. We will give patient intravenous metoprolol as needed, Will resume home medication after confirmed. Hold Coumadin, Continue check PT and INR (8) Narcotic overdose Conclusion/Plan: Patient has history of opiates overdosage accidentally. This time patient possible has overdosage of opiates, but Patient has no respiratory distress with normal RR, no Dizziness. We will continue neuro check (9) Chronic pain Conclusion/Plan: Patient has history of chronic back pain, we will hold pain medication opiates now, Since patient has possible accidentally overdosage opiates (10)weakness Pt present weakness, will Consult with physical therapist and occupational therapist, We will consult social work for safely disposition (5) UTI (urinary tract infection) Qualifiers: Urinary tract infection type: acute cystitis Hematuria presence: without hematuria Qualified Code(s): N30.00 - Acute cystitis without hematuria (7) Atrial fibrillation Qualifiers: Atrial fibrillation type: paroxysmal Qualified Code(s): I48.0 - Paroxysmal atrial fibrillation (8) Narcotic overdose Qualifiers: Encounter type: initial encounter Injury intent: accidental or unintentional Qualified Code(s): T40.601A - Poisoning by unspecified narcotics, accidental (unintentional), initial encounter - Current Meds Current Meds: Current Medications Generic Name Dose Route Start Last Admin Trade Name Freq PRN Reason Stop Dose Admin Acetaminophen 650 mg 07/18/20 16:20 07/18/20 21:31 Acetaminophen 325 Mg Tablet PO 650 mg Q4HR PRN Administration Pain 1 to 4 Azithromycin 250 mg 07/18/20 17:56 07/19/20 09:28 Azithromycin 250 Mg Tablet PO 07/21/20 17:55 250 mg DAILY [facility] Administration Diltiazem HCl 30 mg 07/19/20 08:00 07/19/20 12:52 Diltiazem 30 Mg Tablet PO 30 mg Q6HR [facility] Administration Famotidine 20 mg 07/18/20 21:00 07/19/20 09:27 Famotidine 20 Mg Tablet PO 20 mg BID [facility] Administration Heparin Sodium (Porcine) 5,000 unit 07/18/20 21:00 07/19/20 09:28 Heparin 5,000 Unit/Ml Vial SUBQ 5,000 unit BID [facility] Administration Sodium Chloride 1,000 mls @ 100 mls/hr 07/19/20 07:41 07/19/20 09:33 Normal Saline 0.9% IV 100 mls/hr .Q10H [facility] Administration Saccharomyces Boulardii 250 mg 07/19/20 08:00 07/19/20 09:27 Saccharomyces Boterrydii 250 Mg Capsule PO 250 mg BIDWM [facility] Administration Sodium Chloride 10 ml 07/18/20 17:00 07/19/20 09:34 Sodium Chloride Flush 0.9% 10 Ml Syringe IVP Not Given 0100,0900,1700 [facility] - Lab Result Fish Bone Diagrams: 07/19/20 06:12 07/19/20 06:12 - Additional Planning My Orders: My Active Orders 07/18/20 Dinner Regular Diet [DIET] 07/18/20 16:20 Telemetry- [RC] Q4HR Acetaminophen [Tylenol] 650 mg PO Q4HR PRN Ondansetron Inj [Zofran Inj] 4 mg IVP Q6HR PRN Sodium Chloride Flush 0.9% [Normal Saline Flush 0.9%] 10 ml IVP PRN PRN 07/18/20 16:21 Activity Orders [RC] Q2HR IO [RC] IOSHIFT Initiate Bowel Care Protocol [RC] .protocol Initiate Line Care Protocol [RC] [facility] Initiate Personal Care Protoco [RC] .protocol Vital Signs [RC] 0800,1600,0000 Code Status [OTHERS] Routine Condition of Patient [OTHERS] Routine DVT Prophylaxis [OTHERS] Routine 07/18/20 16:23 IV Insert [RC] .ONCE 07/18/20 16:24 SCDs [RC] QSHIFT 07/18/20 17:00 Sodium Chloride Flush 0.9% [Normal Saline Flush 0.9%] 10 ml IVP 0100,0900,1700 07/18/20 17:56 Azithromycin [Zithromax] 250 mg PO DAILY 07/18/20 17:58 Code Status [OTHERS] Routine 07/18/20 18:18 Metoprolol Inj [Lopressor Inj] 5 mg IVP Q6H PRN 07/18/20 18:45 Neuro Check [RC] QSHIFT 07/18/20 19:52 Blood Culture [CULTURE, BLOOD #1] [] Urgent 07/18/20 20:27 Blood Culture [CULTURE, BLOOD #2] [] Urgent 07/18/20 21:00 Famotidine [Pepcid] 20 mg PO BID Heparin [Heparin Sodium (Porcine)] 5,000 unit SUBQ BID 07/19/20 Evaluate and Treat OT [OT] Routine Evaluate and Treat PT [PT] Routine 07/19/20 07:41 Sodium Chloride 0.9% [Normal Saline 0.9%] 1,000 ml IV 100 mls/hr 07/19/20 08:00 Saccharomyces Boulardii [Florastor] 250 mg PO BIDWM diltiaZEM [Cardizem] 30 mg PO Q6HR 07/19/20 09:02 Out of bed 3+ hours today [RC] TID 07/19/20 15:00 Piperacillin/Tazobactam [Zosyn] 3.375 gm Sodium Chloride 0.9% Minibag [Normal Saline 0.9% Minibag] 100 ml IV ONCE 07/19/20 16:00 Warfarin [Coumadin] 1.5 mg PO QDWARFARIN 07/19/20 20:00 Piperacillin/Tazobactam [Zosyn] 3.375 gm Sodium Chloride 0.9% Minibag [Normal Saline 0.9% Minibag] 100 ml IV Q12H 07/20/20 05:00 BMP - BASIC METABOLIC PANEL [CHEM] DAILYLAB CBC - COMP BLD CT W/AUTO DIFF [HEME] DAILYLAB PT WITH INR [COAG] DAILYLAB 07/21/20 05:00 BMP - BASIC METABOLIC PANEL [CHEM] DAILYLAB CBC - COMP BLD CT W/AUTO DIFF [HEME] DAILYLAB PT WITH INR [COAG] DAILYLAB 07/22/20 05:00 BMP - BASIC METABOLIC PANEL [CHEM] DAILYLAB CBC - COMP BLD CT W/AUTO DIFF [HEME] DAILYLAB PT WITH INR [COAG] DAILYLAB 07/23/20 05:00 BMP - BASIC METABOLIC PANEL [CHEM] DAILYLAB CBC - COMP BLD CT W/AUTO DIFF [HEME] DAILYLAB PT WITH INR [COAG] DAILYLAB Subjective - Subjective Patient Reports: Feeling Better Objective Vital Signs: Vital Signs - 24 hr 07/18/20 07/18/20 07/18/20 16:07 18:00 18:50 Temperature 36.4 C L Heart Rate 105 H 109 H Heart Rate [ Activity] Heart Rate [ 109 H Brachial] Heart Rate [ Supine] Respiratory 16 19 20 Rate Blood Pressure 96/70 141/70 H Blood Pressure [Activity] Blood Pressure 123/59 L [Left Brachial artery] Blood Pressure [Supine] O2 Saturation 96 92 94 07/18/20 07/19/20 07/19/20 21:50 00:20 00:22 Temperature 36.9 C 36.8 C Heart Rate Heart Rate [ Activity] Heart Rate [ 118 H 112 H Brachial] Heart Rate [ Supine] Respiratory 20 20 Rate Blood Pressure Blood Pressure [Activity] Blood Pressure 112/54 L 127/48 L [Left Brachial artery] Blood Pressure [Supine] O2 Saturation 94 89 L 94 07/19/20 07/19/20 07/19/20 07:35 11:10 12:52 Temperature 36.8 C Heart Rate Heart Rate [ 92 Activity] Heart Rate [ 104 H Brachial] Heart Rate [ 88 Supine] Respiratory 20 Rate Blood Pressure 135/95 H Blood Pressure 143/58 H [Activity] Blood Pressure 148/44 H [Left Brachial artery] Blood Pressure 117/36 L [Supine] O2 Saturation 97 07/19/20 13:40 Temperature 36.8 C Heart Rate Heart Rate [ Activity] Heart Rate [ 90 Brachial] Heart Rate [ Supine] Respiratory 18 Rate Blood Pressure Blood Pressure [Activity] Blood Pressure 135/95 H [Left Brachial artery] Blood Pressure [Supine] O2 Saturation 99 Oxygen O2 Source Nasal cannula I&O (Last 24 Hrs): Intake and Output Totals x24h 07/17/20 07/18/20 07/19/20 23:59 23:59 23:59 Intake Total 1350 2540 Output Total 600 Balance 1350 1940 General: Alert, Cooperative, No acute distress HEENT: Atraumatic Neck: Supple Lymphatic: no adenopathy Neuro: Alert, Non Focal Cardiovascular: Regular rate, Normal S1, Normal S2 Respiratory: Chest non-tender Extremities: Normal pulses - Results Results: Laboratory Results WBC 9.0 x10^3/uL (4.8-10.8) 07/19/20 06:12 RBC 3.09 10^6/uL (4.20-5.40) L 07/19/20 06:12 Hgb 9.1 g/dL (12.0-16.0) L 07/19/20 06:12 Hct 29.1 % (37.0-47.0) L 07/19/20 06:12 MCV 94.2 fL (81.0-99.0) 07/19/20 06:12 MCH 29.4 pg (27.0-31.0) 07/19/20 06:12 MCHC 31.3 g/dL (32.0-36.0) L 07/19/20 06:12 RDW 12.8 % (12.0-15.0) 07/19/20 06:12 Plt Count 266 10^3/uL (130-450) 07/19/20 06:12 MPV 10.8 fL (7.9-10.8) 07/19/20 06:12 Neut # (Auto) 6.4 10^3/uL (1.5-6.6) 07/19/20 06:12 Lymph # (Auto) 1.5 10^3/uL (1.5-3.5) 07/19/20 06:12 [place] # (Auto) 0.9 10^3/uL (0.0-1.0) 07/19/20 06:12 Eos # (Auto) 0.1 10^3/uL (0.0-0.7) 07/19/20 06:12 Baso # (Auto) 0.0 10^3/uL (0.0-0.1) 07/19/20 06:12 Absolute Nucleated RBC 0.00 x10^3/uL 07/19/20 06:12 Nucleated RBC % 0.0 /100WBC 07/19/20 06:12 PT 21.1 secs (9.9-12.6) H 07/19/20 06:12 INR 2.0 (0.8-1.2) H 07/19/20 06:12 Sodium 142 mmol/L (135-145) 07/19/20 06:12 Potassium 4.9 mmol/L (3.5-5.0) 07/19/20 06:12 Chloride 108 mmol/L (101-111) 07/19/20 06:12 Carbon Dioxide 19 mmol/L (21-32) L 07/19/20 06:12 Anion Gap 15.0 (6-13) H 07/19/20 06:12 BUN 99 mg/dL (6-20) H* 07/19/20 06:12 Creatinine 2.8 mg/dL (0.4-1.0) H 07/19/20 06:12 Estimated GFR (MDRD) 17 (>89) L 07/19/20 06:12 Glucose 96 mg/dL (70-100) 07/19/20 06:12 Estimat Average Glucose 137 mg/dL (70-100) H 07/18/20 13:10 Hemoglobin A1c % 6.4 % (4.27-6.07) H 07/18/20 13:10 Lactic Acid 0.7 mmol/L (0.5-2.2) 07/18/20 13:10 Calcium 8.0 mg/dL (8.5-10.3) L 07/19/20 06:12 Total Bilirubin 0.5 mg/dL (0.2-1.0) 07/18/20 13:10 AST 17 IU/L (10-42) 07/18/20 13:10 ALT 12 IU/L (10-60) 07/18/20 13:10 Alkaline Phosphatase 86 IU/L (42-121) 07/18/20 13:10 Troponin I High Sens 8.9 ng/L (2.3-14.8) 07/18/20 13:10 Total Protein 7.5 g/dL (6.7-8.2) 07/18/20 13:10 Albumin 3.0 g/dL (3.2-5.5) L 07/18/20 13:10 Globulin 4.5 g/dL (2.1-4.2) H 07/18/20 13:10 Albumin/Globulin Ratio 0.7 (1.0-2.2) L 07/18/20 13:10 Lipase 16 U/L (22-51) L 07/18/20 13:10 Urine Color YELLOW 07/18/20 12:45 Urine Clarity SL. CLOUDY (CLEAR) 07/18/20 12:45 Urine pH 5.0 PH (5.0-7.5) 07/18/20 12:45 Ur Specific [place] 1.025 (1.002-1.030) 07/18/20 12:45 Urine Protein NEGATIVE mg/dL (NEGATIVE) 07/18/20 12:45 Urine Glucose (UA) NEGATIVE mg/dL (NEGATIVE) 07/18/20 12:45 Urine Ketones NEGATIVE mg/dL (NEGATIVE) 07/18/20 12:45 Urine Occult Blood NEGATIVE (NEGATIVE) 07/18/20 12:45 Urine Nitrite NEGATIVE (NEGATIVE) 07/18/20 12:45 Urine Bilirubin NEGATIVE (NEGATIVE) 07/18/20 12:45 Urine Urobilinogen 0.2 (NORMAL) E.U./dL (NORMAL) 07/18/20 12:45 Ur Leukocyte Esterase MODERATE (NEGATIVE) H 07/18/20 12:45 Urine RBC 0-5 /HPF (0-5) 07/18/20 12:45 Urine WBC >25 /HPF (0-5) H 07/18/20 12:45 Ur Squamous Epith Cells FEW Squamous (<= Few) 07/18/20 12:45 Urine Bacteria Few /HPF (None Seen) 07/18/20 12:45 Ur Microscopic Review INDICATED 07/18/20 12:45 Urine Culture Comments INDICATED 07/18/20 12:45 Nasal Adenovirus (PCR) NOT DETECTED 07/18/20 14:30 Nasal B. parapertussis DNA (PCR) NOT DETECTED 07/18/20 14:30 Nasal Coronavir 229E PCR NOT DETECTED 07/18/20 14:30 Nasal Coronavir HKU1 PCR NOT DETECTED 07/18/20 14:30 Nasal Coronavir NL63 PCR NOT DETECTED 07/18/20 14:30 Nasal Coronavir OC43 PCR NOT DETECTED 07/18/20 14:30 Nasal Enterovir/Rhinovir PCR NOT DETECTED 07/18/20 14:30 Nasal Influenza B PCR NOT DETECTED 07/18/20 14:30 Nasal Influenza A PCR NOT DETECTED 07/18/20 14:30 Nasal Parainfluen 1 PCR NOT DETECTED 07/18/20 14:30 Nasal Parainfluen 2 PCR NOT DETECTED 07/18/20 14:30 Nasal Parainfluen 3 PCR NOT DETECTED 07/18/20 14:30 Nasal Parainfluen 4 PCR NOT DETECTED 07/18/20 14:30 Nasal RSV (PCR) NOT DETECTED 07/18/20 14:30 Nasal B.pertussis DNA PCR NOT DETECTED 07/18/20 14:30 Nasal C.pneumoniae (PCR) NOT DETECTED 07/18/20 14:30 Alexx Human Metapneumo PCR NOT DETECTED 07/18/20 14:30 Nasal M.pneumoniae (PCR) NOT DETECTED 07/18/20 14:30 Nasal SARS-CoV-2 (PCR) NOT DETECTED 07/18/20 14:30 Urine Opiates Screen NEGATIVE (NEGATIVE) 07/18/20 17:39 Ur Oxycodone Screen POSITIVE (NEGATIVE) H 07/18/20 17:39 Urine Methadone Screen NEGATIVE (NEGATIVE) 07/18/20 17:39 Ur Propoxyphene Screen NEGATIVE (NEGATIVE) 07/18/20 17:39 Ur Barbiturates Screen NEGATIVE (NEGATIVE) 07/18/20 17:39 Ur Tricyclics Screen POSITIVE (NEGATIVE) H 07/18/20 17:39 Ur Phencyclidine Scrn NEGATIVE (NEGATIVE) 07/18/20 17:39 Ur Amphetamine Screen NEGATIVE (NEGATIVE) 07/18/20 17:39 U Methamphetamines Scrn NEGATIVE (NEGATIVE) 07/18/20 17:39 U Benzodiazepines Scrn NEGATIVE (NEGATIVE) 07/18/20 17:39 Urine Cocaine Screen NEGATIVE (NEGATIVE) 07/18/20 17:39 U Cannabinoids Screen NEGATIVE (NEGATIVE) 07/18/20 17:39 ABX Reporting Has patient been on IV antibiotics over the past 48 hours?: Yes Current Medications - Current Medications Current Medications: Active Medications Acetaminophen (Acetaminophen 325 Mg Tablet) 650 mg PO Q4HR PRN PRN Reason: Pain 1 to 4 Last Admin: 07/18/20 21:31 Dose: 650 mg Documented by: Azithromycin (Azithromycin 250 Mg Tablet) 250 mg PO DAILY [facility] Stop: 07/21/20 17:55 Last Admin: 07/19/20 09:28 Dose: 250 mg Documented by: Diltiazem HCl (Diltiazem 30 Mg Tablet) 30 mg PO Q6HR [facility] Last Admin: 07/19/20 12:52 Dose: 30 mg Documented by: Famotidine (Famotidine 20 Mg Tablet) 20 mg PO BID [facility] Last Admin: 07/19/20 09:27 Dose: 20 mg Documented by: Heparin Sodium (Porcine) (Heparin 5,000 Unit/Ml Vial) 5,000 unit SUBQ BID [facility] Last Admin: 07/19/20 09:28 Dose: 5,000 unit Documented by: Sodium Chloride (Normal Saline 0.9%) 1,000 mls @ 100 mls/hr IV .Q10H [facility] Last Admin: 07/19/20 15:05 Dose: 100 mls/hr Documented by: Piperacillin Sod/Tazobactam (Sod 3.375 gm/ Sodium Chloride) 100 mls @ 200 mls/hr IV ONCE [facility] Stop: 07/19/20 16:00 Piperacillin Sod/Tazobactam (Sod 3.375 gm/ Sodium Chloride) 100 mls @ 25 mls/hr IV Q12H [facility] Metoprolol Tartrate (Metoprolol 5 Mg/5 Ml Vial) 5 mg IVP Q6H PRN PRN Reason: Tachycardia Ondansetron HCl (Ondansetron 4 Mg/2 Ml Vial) 4 mg IVP Q6HR PRN PRN Reason: Nausea / Vomiting Saccharomyces Boulardii (Saccharomyces Boulardii 250 Mg Capsule) 250 mg PO BIDWM [facility] Last Admin: 07/19/20 09:27 Dose: 250 mg Documented by: Sodium Chloride (Sodium Chloride Flush 0.9% 10 Ml Syringe) 10 ml IVP PRN PRN PRN Reason: NEEDED PER PROVIDER ORDERS Sodium Chloride (Sodium Chloride Flush 0.9% 10 Ml Syringe) 10 ml IVP 0100,0900,1700 [facility] Last Admin: 07/19/20 09:34 Dose: Not Given Documented by: Warfarin Sodium (Warfarin 1 Mg Tablet) 1.5 mg PO QDWARFARIN [facility] lisinopriL [Lisinopril] 10 mg PO DAILY 03/23/15 Atorvastatin Calcium [Lipitor] 80 mg PO QPM 05/02/15 ARIPiprazole [Abilify] 5 mg PO QPM 07/19/20 Duloxetine HCl [Cymbalta] 60 mg PO DAILY 07/19/20 Furosemide [Lasix] 80 mg PO DAILY 07/19/20 Gabapentin [Neurontin] 800 mg PO TID 07/19/20 Oxybutynin [Ditropan] 5 mg PO BID 07/19/20 Pantoprazole [Protonix] 40 mg PO BID 07/19/20 Potassium Chloride 40 meq PO DAILY 07/19/20 Solifenacin Succinate [Vesicare] 10 mg PO DAILY 07/19/20 Warfarin [Coumadin] 1.5 mg PO SUMO07/19/20 Warfarin [Coumadin] 3 mg PO 07/19/20 oxyCODONE [Roxicodone] 5 mg PO Q6H 07/19/20
[2020-07-19] MEDS: WARFARIN 1 MG TABLET PO SCH (15:58)
[2020-07-19] MEDS: ACETAMINOPHEN 325 MG TABLET PO PRN ×2 (18:07→23:57)
[2020-07-19] MEDS: PIPERACILLIN/TAZOBACTAM 3.375 GM in SODIUM CHLORIDE 0.9% MINIBAG 100 ML IV SCH (20:50)
[2020-07-20] MEDS: SODIUM CHLORIDE 0.9% 1,000 ML IV SCH ×3 (01:12→21:52)
[2020-07-20] MEDS: ACETAMINOPHEN 325 MG TABLET PO PRN ×5 (04:22→20:07)
[2020-07-20 06:07] LABS: INR 1.5 (0.8-1.2); PT - PROTHROMBIN TIME 16.3 secs (9.9-12.6)
[2020-07-20 06:11] LABS: BASOPHILS % (AUTO) 0.3 %; EOSINOPHILS # (AUTO) 0.3 10^3/uL (0.0-0.7); HGB - HEMOGLOBIN 8.7 g/dL (12.0-16.0); LYMPHOCYTES # (AUTO) 1.5 10^3/uL (1.5-3.5); LYMPHOCYTES % (AUTO) 23.8 %; MEAN CORPUSCULAR HEMOGLOBIN 29.6 pg (27.0-31.0); MEAN CORPUSCULAR HGB CONC 31.1 g/dL (32.0-36.0); MEAN CORPUSCULAR VOLUME 95.2 fL (81.0-99.0); MEAN PLATELET VOLUME 10.5 fL (7.9-10.8); MONOCYTES # (AUTO) 0.6 10^3/uL (0.0-1.0); MONOCYTES % (AUTO) 9.2 %; NEUTROPHILS % (AUTO) 62.5 %; PLT - PLATELET COUNT 244 10^3/uL (130-450); RED BLOOD COUNT 2.94 10^6/uL (4.20-5.40); WHITE BLOOD COUNT 6.3 x10^3/uL (4.8-10.8)
[2020-07-20 06:15] LABS: CALCIUM 8.1 mg/dL (8.5-10.3); CREATININE 1.8 mg/dL (0.4-1.0); POTASSIUM 4.2 mmol/L (3.5-5.0)
[2020-07-20] MEDS: diltiaZEM 30 MG TABLET PO SCH (07:00)
[2020-07-20] MEDS: HEPARIN 5,000 UNIT/ML VIAL SUBQ SCH ×2 (08:49→20:06)
[2020-07-20] MEDS: FAMOTIDINE 20 MG TABLET PO SCH ×2 (08:53→20:13)
[2020-07-20] MEDS: AZITHROMYCIN 250 MG TABLET PO SCH (08:54)
[2020-07-20] MEDS: PIPERACILLIN/TAZOBACTAM 3.375 GM in SODIUM CHLORIDE 0.9% MINIBAG 100 ML IV SCH ×2 (08:54→16:49)
[2020-07-20] MEDS: SACCHAROMYCES BOULARDII 250 MG CAPSULE PO SCH ×2 (08:54→16:49)
[2020-07-20] MEDS: SODIUM CHLORIDE FLUSH 0.9% 10 ML SYRINGE IVP SCH ×2 (09:02→16:50)
[2020-07-20] MEDS: diltiaZEM CD 120 MG CAPSULE PO SCH (13:06)
[2020-07-20] MEDS: WARFARIN 1 MG TABLET PO SCH (13:08)
--- NOTE | 2020-07-20 15:24 | PROVIDER PROGRESS NOTE ---
Subjective - Prog Note Date Prog Note Date: 07/20/20 Prog Note Time: 15:21 - Subjective Subjective: I am meeting this leana lady for the first time. Her daughter is at the bedside with her as we go over her case. She presented to the emergency room with increasing confusion, lethargy, urinary incontinence, and lack of p.o. intake. She also was complaining of neck and back pain. Overall evaluation found her to have pneumonia and a UTI. Cultures today show urine with E. coli. And both sets of blood cultures with Enterococcus faecalis and Staphylococcus epidermidis (4/4 bottles). PCR of the blood cultures confirms that. Overall she has responded to IV antibiotics, fluids for sepsis. Her BUN started at 97 and 74 today. Creatinine started at 4.4 and is 1.8. Both she and her daughter state that this is the best she has felt in a few days . She is an alert, chatty vivacious patient. I am getting to meet her at her best. Apparently the last few days she still been lethargic and not completely "all there" until today. Current Medications - Current Medications Current Medications: Active Medications Acetaminophen (Acetaminophen 325 Mg Tablet) 650 mg PO Q4HR PRN PRN Reason: Pain 1 to 4 Last Admin: 07/20/20 13:22 Dose: 650 mg Documented by: Azithromycin (Azithromycin 250 Mg Tablet) 250 mg PO DAILY [facility] Stop: 07/21/20 17:55 Last Admin: 07/20/20 08:54 Dose: 250 mg Documented by: Diltiazem HCl (Diltiazem Cd 120 Mg Capsule) 120 mg PO DAILY [facility] Last Admin: 07/20/20 13:06 Dose: 120 mg Documented by: Famotidine (Famotidine 20 Mg Tablet) 20 mg PO BID [facility] Last Admin: 07/20/20 08:53 Dose: 20 mg Documented by: Heparin Sodium (Porcine) (Heparin 5,000 Unit/Ml Vial) 5,000 unit SUBQ BID [facility] Last Admin: 07/20/20 08:49 Dose: 5,000 unit Documented by: Sodium Chloride (Normal Saline 0.9%) 1,000 mls @ 100 mls/hr IV .Q10H [facility] Last Admin: 07/20/20 11:00 Dose: 100 mls/hr Documented by: Piperacillin Sod/Tazobactam (Sod 3.375 gm/ Sodium Chloride) 100 mls @ 25 mls/hr IV Q12H [facility] Last Infusion: 07/20/20 13:20 Dose: Infused Documented by: Metoprolol Tartrate (Metoprolol 5 Mg/5 Ml Vial) 5 mg IVP Q6H PRN PRN Reason: Tachycardia Multi-Ingredient Ointment (Zinc Oxide 20% Oint 30 Gm Tube) 1 applic TOP PRN PRN PRN Reason: Skin Care Ondansetron HCl (Ondansetron 4 Mg/2 Ml Vial) 4 mg IVP Q6HR PRN PRN Reason: Nausea / Vomiting Saccharomyces Boulardii (Saccharomyces Boulardii 250 Mg Capsule) 250 mg PO BIDWM [facility] Last Admin: 07/20/20 08:54 Dose: 250 mg Documented by: Sodium Chloride (Sodium Chloride Flush 0.9% 10 Ml Syringe) 10 ml IVP PRN PRN PRN Reason: NEEDED PER PROVIDER ORDERS Sodium Chloride (Sodium Chloride Flush 0.9% 10 Ml Syringe) 10 ml IVP 0100,0900,1700 [facility] Last Admin: 07/20/20 09:02 Dose: 10 ml Documented by: Warfarin Sodium (Warfarin 1 Mg Tablet) 1.5 mg PO QDWARFARIN [facility] Last Admin: 07/20/20 13:08 Dose: 1.5 mg Documented by: lisinopriL [Lisinopril] 10 mg PO DAILY 03/23/15 Atorvastatin Calcium [Lipitor] 80 mg PO QPM 05/02/15 ARIPiprazole [Abilify] 5 mg PO QPM 07/19/20 Duloxetine HCl [Cymbalta] 60 mg PO DAILY 07/19/20 Furosemide [Lasix] 80 mg PO DAILY 07/19/20 Gabapentin [Neurontin] 800 mg PO TID 07/19/20 Oxybutynin [Ditropan] 5 mg PO BID 07/19/20 Pantoprazole [Protonix] 40 mg PO BID 07/19/20 Potassium Chloride 40 meq PO DAILY 07/19/20 Solifenacin Succinate [Vesicare] 10 mg PO DAILY 07/19/20 Warfarin [Coumadin] 1.5 mg PO SUMOSA 07/19/20 Warfarin [Coumadin] 3 mg PO WETH 07/19/20 oxyCODONE [Roxicodone] 5 mg PO Q6H 07/19/20 Objective - Vital Signs/Intake & Output Reviewed Vital Signs: Yes Vital Signs: Vital Signs x48h Temp Pulse Resp BP Pulse Ox 07/20/20 12:57 36.7 C 101 H 20 125/45 L 96 07/20/20 08:15 36.7 C 95 17 119/41 L 94 Intake & Output: Intake & Output 07/17/20 07/18/20 07/19/20 07/20/20 23:59 23:59 23:59 23:59 Intake Total 1350 3433.333 2960 Output Total 600 450 Balance 1350 2833.333 2510 - Objective General Appearance: positive: No acute distress, Alert, Other (7 inch elderly female who looks older than stated age and weighs 111 kg.) Eyes Bilateral: positive: PERRL ENT: positive: No signs of dehydration Neck: negative: Stiff neck, Carotid bruit Respiratory: positive: No respiratory distress. negative: Wheezes, Rales, Rho nchi Cardiovascular: positive: Irregularly irregular, Systolic murmur. negative: Gallop/S4, Friction rub Abdomen: positive: Non-tender, Nml bowel sounds, No distention Skin: positive: Warm, Dry, Pallor, Other (Legs have multiple eschars and excoriations that are closed, healing, dry. The skin is hyperpigmented with resolution of venous stasis dermatitis appearance.) Extremities: positive: Full ROM, Pedal edema Neurologic/Psychiatric: positive: Oriented x3, CN's nml (2-12). negative: Motor nml (She needs the max assist of 2 nurses to sit her up in bed, and reposition the sheets. When she lays back down, they need to lift her legs up to then breast pillows underneath him because she is so weak.) - Lab Results Fish Bones: 07/20/20 05:15 07/20/20 05:15 Other Labs: Lab Results x24hrs 07/20/20 07/20/20 07/20/20 Range/Units 05:15 05:15 05:15 WBC 6.3 (4.8-10.8) x10^3/uL RBC 2.94 L (4.20-5.40) 10^6/uL Hgb 8.7 L (12.0-16.0) g/dL Hct 28.0 L (37.0-47.0) % MCV 95.2 (81.0-99.0) fL MCH 29.6 (27.0-31.0) pg MCHC 31.1 L (32.0-36.0) g/dL RDW 13.0 (12.0-15.0) % Plt Count 244 (130-450) 10^3/uL MPV 10.5 (7.9-10.8) fL Neut # (Auto) 4.0 (1.5-6.6) 10^3/uL Lymph # (Auto) 1.5 (1.5-3.5) 10^3/uL [place] # (Auto) 0.6 (0.0-1.0) 10^3/uL Eos # (Auto) 0.3 (0.0-0.7) 10^3/uL Baso # (Auto) 0.0 (0.0-0.1) 10^3/uL Absolute Nucleated RBC 0.00 x10^3/uL Nucleated RBC % 0.0 /100WBC PT 16.3 H (9.9-12.6) secs INR 1.5 H (0.8-1.2) Sodium 145 (135-145) mmol/L Potassium 4.2 (3.5-5.0) mmol/L Chloride 114 H (101-111) mmol/L Carbon Dioxide 21 (21-32) mmol/L Anion Gap 10.0 (6-13) BUN 74 H (6-20) mg/dL Creatinine 1.8 H (0.4-1.0) mg/dL Estimated GFR (MDRD) 28 L (>89) Glucose 109 H (70-100) mg/dL Calcium 8.1 L (8.5-10.3) mg/dL Nasal Screen MRSA (PCR) (NEGATIVE) 07/19/20 Range/Units 15:57 WBC (4.8-10.8) x10^3/uL RBC (4.20-5.40) 10^6/uL Hgb (12.0-16.0) g/dL Hct (37.0-47.0) % MCV (81.0-99.0) fL MCH (27.0-31.0) pg MCHC (32.0-36.0) g/dL RDW (12.0-15.0) % Plt Count (130-450) 10^3/uL MPV (7.9-10.8) fL Neut # (Auto) (1.5-6.6) 10^3/uL Lymph # (Auto) (1.5-3.5) 10^3/uL [place] # (Auto) (0.0-1.0) 10^3/uL Eos # (Auto) (0.0-0.7) 10^3/uL Baso # (Auto) (0.0-0.1) 10^3/uL Absolute Nucleated RBC x10^3/uL Nucleated RBC % /100WBC PT (9.9-12.6) secs INR (0.8-1.2) Sodium (135-145) mmol/L Potassium (3.5-5.0) mmol/L Chloride (101-111) mmol/L Carbon Dioxide (21-32) mmol/L Anion Gap (6-13) BUN (6-20) mg/dL Creatinine (0.4-1.0) mg/dL Estimated GFR (MDRD) (>89) Glucose (70-100) mg/dL Calcium (8.5-10.3) mg/dL Nasal Screen MRSA (PCR) NEGATIVE (NEGATIVE) ABX Reporting Has patient been on IV antibiotics over the past 48 hours?: Yes Sepsis Event Note (H) - Evaluation Current Stage of Sepsis: Resolved Assessment/Plan - Problem List (1) Gram-positive cocci bacteremia Impression: With Enterococcus and Staph epidermidis. I do not think these are contamination's. Initial antibiotics were ceftriaxone and azithromycin on her first day here. Ceftriaxone was discontinued and she was switched to Zosyn on her second day here. Today is Day #2 of the zosyn and Day #3 azithromycin. Sources of her infection are pneumonia and UTI. This patient does have healing leg wounds as well but no sacral decubiti or trochanteric decubiti. Plan: Repeat blood cultures to see if she is responding to treatment. 14 days of antibiotic therapy to begin after her first negative set of blood cultures. If blood cultures are positive, she will need to have an echocardiogram, transesophageal echocardiogram and further work-up. (2) Pneumonia Conclusion/Plan: On admission, her daughter reported the patient having cough, phlegm, shortness of breath. Chest x-ray showed consolidation. Initial treatment was azithromycin and Rocephin. Changed to cefepime and azithromycin. Patient is definitely responded to therapy and that she is back to baseline m entation. BUN and creatinine are almost back to normal. White cell count is back to normal. Plan: Antibiotics will continue depending on bacteremia work-up results. (3) UTI (urinary tract infection) Conclusion/Plan: E. coli UTI is resistant to ampicillin, Unasyn, Cipro, Levaquin. Sensitive to ertapenem, cefazolin, cefepime, ceftriaxone So her UTI was being treated by day #1 of Rocephin. Switching her to Zosyn did not help her UTI. I will await the sensitivities of the Enterococcus and staph before I switch her antibiotics yet again.>> (4)acute renal failure Conclusion/Plan: Creatinine 4.4>> 2.8>>1.8 Baseline is 0.8. Plan: Continue antibiotics and IVF until at baseline. Encourage p.o. (5) Supratherapeutic INR Conclusion/Plan: Coumadin held on admission. Then resumed because INR was 2. Today she is 1.5. (6) Hyperkalemia Conclusion/Plan: Has resolved. Yesterday she was 4.9, and today she is 4.2. (7) Atrial fibrillation Conclusion/Plan: Not on any rate lowering agents at home. She is on Coumadin. While here she was getting metoprolol as needed. She was started on Cardizem short acting p.o. Now that rate is under control we will switch her to Cardizem CD 120 mg a day. (8) Opioid use disorder with possible accidental overdose leading to sedation, aspiration?, PNA, UTI, dehydration Conclusion/Plan: She has been taking more pain medication than usual according to the daughter. This resulted in sedation, and she is not getting up. She will go to the door and get her Meals on Wheels but she is stacked them up in the refrigerator and has not eaten the last 7 of them. Oxycodone pills were found next to her chair where she has easy access to take her medications. Daughter does not know but suspects that mom may have been taking medications too much. Patient does have a history of accidental opiate overdose in the past. (9) Chronic pain Conclusion/Plan: Patient has history of chronic back pain, we will hold pain medication opiates Today she is much more alert. Back to baseline mental status. We will start and reintroduce pain medicine when she asked for it (10)weakness Physical therapy eval: she was able to go from a supine to sitting position. Stand. Walk 20 feet with a front wheel walker. Minimum assist. Good gait pattern and balance. She still has enough weakness, that she has room to improve. Physical therapy feels that she would benefit from transfer to detention facility to continue her progression of activity toward baseline activities of daily living and return to home.
--- NOTE | 2020-07-20 15:52 | ADVANCE CARE PLANNING NOTE ---
Advance Care Planning - Planning Encounter Date: 07/20/20 Time: 10:30 Purpose: Establish overall goals of care Parties in Attendance: Daughter, patient, hospitalist Decisional Capacity of the Patient: Intact today. She presented as sepsis with encephalopathy. Possible opioid overdose. Currently she is alert, oriented, feels like she just woke up from a bad dream - Diagnosis for Encounter (1) Chronic pain Qualifiers: Chronic pain type: chronic pain syndrome Qualified Code(s): G89.4 - Chronic pain syndrome Summary: She has chronic back pain and chronic hip pain. She has had back surgery 15 years ago. Most recently she had a lumbar epidural steroid injection about a month ago. She has chronic right leg weakness that is gotten worse in the last month and sometimes her leg will go out from underneath her. This is resulted in decreasing mobility. Increasing weight. She now spends her time sleeping in a recliner. It is too hard to get out of bed for herself. - Encounter Subjective/Patient's Story: She is lived in her own home for many years. Over the last 2 years she has had decreasing mobility and increasing back pain with increasing weight. 15 years ago she had back surgery, but in the last couple of years it is gotten worse. With that has been increasing opioid use in a couple of accidental opioid overdoses with visits to the ER or an admission here. Daughter denies a mom's had a stroke but more hypoxic brain damage because of the accidental overdoses. With the increasing pain and immobility has been increasing weight. Is been a double edge sword as she loses mobility, increase his weight, which reduces her mobility even more. She lives in her own home, and her son lives with her. He pays her $500 a month but does not help with her self-care because he works all day and is tired at night. Daughter has her own issues. Within the family [id number] is a problem. Daughter has also had multiple back surgeries and is harsh Charcot Gia of the ankles. So she is not physically able to take care of mom. In the last 2 months mom has become completely immobile. Pain is always present. It is increased her sense of depression. Patient keeps on hoping that she will get over this acute episode and then "go back to normal". Daughter states that the family really does not talk. While they all get along, and help each other as much as they can, they do not talk about uncomfortable topics. Daughter is relieved when I asked the patient what the overall plans are as her mobility decreases and she can no longer take care of herself. Mom initially thought that she would somehow pay off all of her credit card debt, pay off the 2 loans against the house, and at home. And when that happened the sale of the house would give a tidy profit to both children. Daughter points out that that is probably not realistic. The amount of credit card debt, and to loans against the house will mean that when the house is sold it will go toward paying off the debt against the house. Mom does not want to leave her house. She always wants to stay there. But recognizes that if her son cannot take care of her and her daughter cannot take care of her she may have to reluctantly make plans. Daughter is already in the midst of getting rossy, applying for Medicaid in anticipation of needing more help for mom. Mom does reiterate that she wants to be a DO NOT RESUSCITATE. She has not decided about that great. Between now and her heart stopping or lungs stopping breathing. She does not know at what point the quality of her life would deteriorate so much that she would not want continued treatment. She has never thought about those things and up until now has always thought that she wanted abdominal surgery, lung surgery, blood transfusions, dialysis, ICU pressors. With this admission and its subsequent sepsis and bacteremia, she is now rethinking things. Objective/Medical Story: Possible accidental opioid overdose for second time. This is resulted in sedation, prolonged sitting in her chair. She has not been eating or drinking for possibly up to a week. This resulted in enough lethargy that the patient presented as altered, septic in the ER. She has pneumonia and a UTI. Urine is growing out E. coli with resistance. Blood cultures are growing out strep epidermidis and Enterococcus. She has responded to IV antibiotics and fluids. Today is the first day she is completely back to baseline mentally. Goals of Care: 1. To finish therapy for this acute episode of care for her infection 2. To be evaluated by physical therapy and see if she qualifies for home health PT or [facility] facility placement with PT 3. Goal is to return to home for as long as she can 4 to avoid [facility] facility or assisted living facility for as long as she can Plan: 1. Reiterate DO NOT RESUSCITATE status 2. Daughter to follow through on all the different options and opportunities she has discussed with social work with regards to [employer], rossy, Medicaid application, etc. 3. Mom, son, and daughter to sit down to start talking about the practical finances of her house. If she sells it where will her son go? If she sells it how the money be used and how much will be left over for her care? Code Status: Do Not Attempt Resuscitation
[2020-07-20] MEDS: ZINC OXIDE 20% OINT 30 GM TUBE TOP PRN ×2 (16:50→20:07)
[2020-07-21] MEDS: PIPERACILLIN/TAZOBACTAM 3.375 GM in SODIUM CHLORIDE 0.9% MINIBAG 100 ML IV SCH ×3 (00:38→16:53)
[2020-07-21] MEDS: SODIUM CHLORIDE FLUSH 0.9% 10 ML SYRINGE IVP SCH ×3 (00:40→16:58)
[2020-07-21] MEDS: ZINC OXIDE 20% OINT 30 GM TUBE TOP PRN (00:41)
[2020-07-21] MEDS: ACETAMINOPHEN 325 MG TABLET PO PRN ×4 (00:57→16:57)
[2020-07-21] MEDS: SODIUM CHLORIDE FLUSH 0.9% 10 ML SYRINGE IVP PRN (00:58)
[2020-07-21 06:52] LABS: BASOPHILS % (AUTO) 0.3 %; EOSINOPHILS # (AUTO) 0.4 10^3/uL (0.0-0.7); HGB - HEMOGLOBIN 8.7 g/dL (12.0-16.0); LYMPHOCYTES # (AUTO) 0.9 10^3/uL (1.5-3.5); LYMPHOCYTES % (AUTO) 13.8 %; MEAN CORPUSCULAR HEMOGLOBIN 29.2 pg (27.0-31.0); MEAN CORPUSCULAR HGB CONC 31.1 g/dL (32.0-36.0); MONOCYTES # (AUTO) 0.4 10^3/uL (0.0-1.0); MONOCYTES % (AUTO) 7.2 %; NEUTROPHILS # (AUTO) 4.5 10^3/uL (1.5-6.6); NEUTROPHILS % (AUTO) 72.5 %; PLT - PLATELET COUNT 239 10^3/uL (130-450); RED BLOOD COUNT 2.98 10^6/uL (4.20-5.40); RED CELL DISTRIBUTION WIDTH 13.2 % (12.0-15.0); WHITE BLOOD COUNT 6.1 x10^3/uL (4.8-10.8)
[2020-07-21 06:57] LABS: INR 1.6 (0.8-1.2); PT - PROTHROMBIN TIME 17.3 secs (9.9-12.6)
[2020-07-21 06:59] LABS: CALCIUM 8.5 mg/dL (8.5-10.3); CREATININE 1.2 mg/dL (0.4-1.0)
[2020-07-21] MEDS: SODIUM CHLORIDE 0.9% 1,000 ML IV SCH (07:57)
[2020-07-21] MEDS: SACCHAROMYCES BOULARDII 250 MG CAPSULE PO SCH ×2 (07:57→16:57)
[2020-07-21] MEDS: HEPARIN 5,000 UNIT/ML VIAL SUBQ SCH ×2 (07:59→21:04)
[2020-07-21] MEDS: FAMOTIDINE 20 MG TABLET PO SCH ×2 (08:01→21:03)
[2020-07-21] MEDS: AZITHROMYCIN 250 MG TABLET PO SCH (08:01)
[2020-07-21] MEDS: diltiaZEM CD 120 MG CAPSULE PO SCH (08:01)
[2020-07-21] MEDS: ONDANSETRON 4 MG/2 ML VIAL IVP PRN (08:17)
[2020-07-21] MEDS: DEXTROSE 5% 1,000 ML IV SCH ×2 (09:33→19:23)
--- NOTE | 2020-07-21 13:03 | PROVIDER PROGRESS NOTE ---
Subjective - Prog Note Date Prog Note Date: 07/21/20 Prog Note Time: 12:53 - Subjective Pt reports feeling: No change Subjective: No new events or complaints. She is working with physical therapy. She requires a front wheel walker and a contact-guard assist but it takes about 15 minutes to recover she is worked. She is limited by fatigue and various gait deficits like not clearing her toes to lift her feet, or not completely extending her knees when she wants to take a step forward. Her prieto is also off. She has mild gross balance deficit when she stands. Current Medications - Current Medications Current Medications: Active Medications Acetaminophen (Acetaminophen 325 Mg Tablet) 650 mg PO Q4HR PRN PRN Reason: Pain 1 to 4 Last Admin: 07/21/20 12:28 Dose: 650 mg Documented by: Azithromycin (Azithromycin 250 Mg Tablet) 250 mg PO DAILY [facility] Stop: 07/21/20 17:55 Last Admin: 07/21/20 08:01 Dose: 250 mg Documented by: Diltiazem HCl (Diltiazem Cd 120 Mg Capsule) 120 mg PO DAILY [facility] Last Admin: 07/21/20 08:01 Dose: 120 mg Documented by: Famotidine (Famotidine 20 Mg Tablet) 20 mg PO BID [facility] Last Admin: 07/21/20 08:01 Dose: 20 mg Documented by: Heparin Sodium (Porcine) (Heparin 5,000 Unit/Ml Vial) 5,000 unit SUBQ BID [facility] Last Admin: 07/21/20 07:59 Dose: 5,000 unit Documented by: Piperacillin Sod/Tazobactam (Sod 3.375 gm/ Sodium Chloride) 100 mls @ 25 mls/hr IV Q8H [facility] Last Admin: 07/21/20 08:25 Dose: 25 mls/hr Documented by: Dextrose (D5w) 1,000 mls @ 100 mls/hr IV .Q10H [facility] Last Admin: 07/21/20 09:33 Dose: 100 mls/hr Documented by: Metoprolol Tartrate (Metoprolol 5 Mg/5 Ml Vial) 5 mg IVP Q6H PRN PRN Reason: Tachycardia Multi-Ingredient Ointment (Zinc Oxide 20% Oint 30 Gm Tube) 1 applic TOP PRN PRN PRN Reason: Skin Care Last Admin: 07/21/20 00:41 Dose: 1 applic Documented by: Ondansetron HCl (Ondansetron 4 Mg/2 Ml Vial) 4 mg IVP Q6HR PRN PRN Reason: Nausea / Vomiting Last Admin: 07/21/20 08:17 Dose: 4 mg Documented by: Saccharomyces Boulardii (Saccharomyces Boulardii 250 Mg Capsule) 250 mg PO BIDWM [facility] Last Admin: 07/21/20 07:57 Dose: 250 mg Documented by: Sodium Chloride (Sodium Chloride Flush 0.9% 10 Ml Syringe) 10 ml IVP PRN PRN PRN Reason: NEEDED PER PROVIDER ORDERS Last Admin: 07/21/20 00:58 Dose: 10 ml Documented by: Sodium Chloride (Sodium Chloride Flush 0.9% 10 Ml Syringe) 10 ml IVP 0100,0900,1700 [facility] Last Admin: 07/21/20 08:03 Dose: 10 ml Documented by: Warfarin Sodium (Warfarin 1 Mg Tablet) 1.5 mg PO SuMoSa@1400 [facility] Warfarin Sodium (Warfarin 1 Mg Tablet) 3 mg PO TuWe@1400 [facility] lisinopriL [Lisinopril] 10 mg PO DAILY 03/23/15 Atorvastatin Calcium [Lipitor] 80 mg PO QPM 05/02/15 ARIPiprazole [Abilify] 5 mg PO QPM 07/19/20 Duloxetine HCl [Cymbalta] 60 mg PO DAILY 07/19/20 Furosemide [Lasix] 80 mg PO DAILY 07/19/20 Gabapentin [Neurontin] 800 mg PO TID 07/19/20 Oxybutynin [Ditropan] 5 mg PO BID 07/19/20 Pantoprazole [Protonix] 40 mg PO BID 07/19/20 Potassium Chloride 40 meq PO DAILY 07/19/20 Solifenacin Succinate [Vesicare] 10 mg PO DAILY 07/19/20 Warfarin [Coumadin] 1.5 mg PO SUMOSA 07/19/20 Warfarin [Coumadin] 3 mg PO TUWETH 07/19/20 oxyCODONE [Roxicodone] 5 mg PO Q6H 07/19/20 Objective - Vital Signs/Intake & Output Reviewed Vital Signs: Yes Vital Signs: Vital Signs x48h Temp Pulse Resp BP Pulse Ox 07/21/20 12:13 36.8 C 87 18 134/46 H 95 07/21/20 07:46 36.8 C 89 18 147/58 H 96 Intake & Output: Intake & Output 07/18/20 07/19/20 07/20/20 07/21/20 23:59 23:59 23:59 23:59 Intake Total 1350 3433.333 4426.000 1800 Output Total 600 800 600 Balance 1350 2833.333 3626.000 1200 - Objective General Appearance: positive: Alert, Mild distress (from pain), Other (sitting up in chair and wants to go back to bed. wig in place.) Eyes Bilateral: positive: PERRL, EOMI ENT: positive: Other (lisping communication from teeth) Neck: positive: No JVD. negative: Stiff neck Respiratory: positive: Chest non-tender, Other (shallow unlabored quiet throughout). negative: Wheezes, Rales, Rhonchi Cardiovascular: positive: Irregularly irregular. negative: Gallop/S4, Friction rub Abdomen: positive: Non-tender, Nml bowel sounds, No distention, Other (large abd panus). negative: Guarding, Rebound Skin: positive: Warm, Dry, Pallor Extremities: positive: Pedal edema (nonpitting, cankles), Other (ankles hurt to compress when I examine but chronic and not a new problems she states). negative: Nml appearance (previous surgical deformities of ankles), Jessica's sign/cords Neurologic/Psychiatric: positive: Oriented x3 (but can get confused and forget what she is saying), CN's nml (2-12). negative: Motor nml (weakn legs) - Lab Results Fish Bones: 07/21/20 06:30 07/21/20 06:30 Other Labs: Lab Results x24hrs 07/21/20 07/21/20 07/21/20 Range/Units 06:30 06:30 06:30 WBC 6.1 (4.8-10.8) x10^3/uL RBC 2.98 L (4.20-5.40) 10^6/uL Hgb 8.7 L (12.0-16.0) g/dL Hct 28.0 L (37.0-47.0) % MCV 94.0 (81.0-99.0) fL MCH 29.2 (27.0-31.0) pg MCHC 31.1 L (32.0-36.0) g/dL RDW 13.2 (12.0-15.0) % Plt Count 239 (130-450) 10^3/uL MPV 10.0 (7.9-10.8) fL Neut # (Auto) 4.5 (1.5-6.6) 10^3/uL Lymph # (Auto) 0.9 L (1.5-3.5) 10^3/uL [place] # (Auto) 0.4 (0.0-1.0) 10^3/uL Eos # (Auto) 0.4 (0.0-0.7) 10^3/uL Baso # (Auto) 0.0 (0.0-0.1) 10^3/uL Absolute Nucleated RBC 0.00 x10^3/uL Nucleated RBC % 0.0 /100WBC PT 17.3 H (9.9-12.6) secs INR 1.6 H (0.8-1.2) Sodium 146 H (135-145) mmol/L Potassium 4.0 (3.5-5.0) mmol/L Chloride 113 H (101-111) mmol/L Carbon Dioxide 24 (21-32) mmol/L Anion Gap 9.0 (6-13) BUN 39 H (6-20) mg/dL Creatinine 1.2 H (0.4-1.0) mg/dL Estimated GFR (MDRD) 44 L (>89) Glucose 112 H (70-100) mg/dL Calcium 8.5 (8.5-10.3) mg/dL ABX Reporting Has patient been on IV antibiotics over the past 48 hours?: Yes Sepsis Event Note (H) - Evaluation Current Stage of Sepsis: Resolved Assessment/Plan - Problem List (1) Gram-positive cocci bacteremia Impression: With Enterococcus and Staph epidermidis. I do not think these are contamination's. Initial antibiotics were ceftriaxone and azithromycin on her first day here. Ceftriaxone was discontinued and she was switched to Zosyn on her second day here. Today is Day #3 of the zosyn and Day #4 azithromycin. Sources of her infection are pneumonia and UTI. This patient does have healing leg wounds as well but no sacral decubiti or trochanteric decubiti. Plan: Repeat blood cultures to see if she is responding to treatment. 14 days of antibiotic therapy to begin after her first negative set of blood cultures. If blood cultures are positive, she will need to have an echocardiogram, transesophageal echocardiogram and further work-up. I am going to focus on her bacteremia. I do think that her E. coli is colonization that is chronic and not a true UTI. Although I am puzzled about where the source of her Enterococcus and staph epi are from. We will change to vancomycin today to cover both of these bacteria (2) Pneumonia Conclusion/Plan: On admission, her daughter reported the patient having cough, phlegm, shortness of breath. Chest x-ray showed consolidation. Initial treatment was azithromycin and Rocephin. Changed to cefepime and azithromycin. Patient is definitely responded to therapy and that she is back to baseline mentation. BUN and creatinine are almost back to normal. White cell count is back to normal. Plan: Antibiotics will continue depending on bacteremia work-up results. I will treat the bacteremia w continued abx but the azithromycin can be stopped since she has 2000 mg (3) UTI (urinary tract infection) Conclusion/Plan: E. coli UTI is resistant to ampicillin, Unasyn, Cipro, Levaquin. Sensitive to ertapenem, cefazolin, cefepime, ceftriaxone So her UTI was being treated by day #1 of Rocephin. Switching her to Zosyn did not help her UTI. I will await the sensitivities of the Enterococcus and staph before I switch her antibiotics yet again But I think she has Colonization. As such we will focus on treating the bacteremia (4)acute renal failure Conclusion/Plan: Creatinine 4.4>> 2.8>>1.8>>1.2 Baseline is 0.8. Plan: Continue antibiotics and IVF until at baseline. Encourage p.o. (5) Supratherapeutic INR Conclusion/Plan: Coumadin held on admission. Then resumed because INR was 2. But INR 1.5>>1.6 today. Coumadin is 1.5 mg on Wednesday. 3 mg on Wednesday. Right now she is just on 1.5 mg and does not start 3 mg until July 23. Since she is subtherapeutic I will start that today. (6) Hyperkalemia Conclusion/Plan: Has resolved. Yesterday she was 4.9, and today she is 4.2. (7) Atrial fibrillation Conclusion/Plan: Not on any rate lowering agents at home. She is on Coumadin. While here she was getting metoprolol as needed. She was started on Cardizem short acting p.o. Now that rate is under control we switched her to Cardizem CD 120 mg a day 07/20 (8) Opioid use disorder with possible accidental overdose leading to sedation, aspiration?, PNA, UTI, dehydration Conclusion/Plan: She has been taking more pain medication than usual according to the daughter. This resulted in sedation, and she is not getting up. She will go to the door and get her Meals on Wheels but she is stacked them up in the refrigerator and has not eaten the last 7 of them. Oxycodone pills were found next to her chair where she has easy access to take her medications. Daughter does not know but suspects that mom may have been taking medications too much. Patient does have a history of accidental opiate overdose in the past. (9) Chronic pain Conclusion/Plan: Patient has history of chronic back pain, we will hold pain medication opiates Today she is much more alert. Back to baseline mental status. We will start and reintroduce pain medicine when she asked for it (10)weakness Physical therapy eval: she was able to go from a supine to sitting position. Stand. Walk 20 feet with a front wheel walker. Minimum assist. Good gait p attern and balance. She still has enough weakness, that she has room to improve. Physical therapy feels that she would benefit from transfer to [facility] to continue her progression of activity toward baseline activities of daily living and return to home.
[2020-07-21] MEDS: WARFARIN 1 MG TABLET PO SCH (14:33)
[2020-07-21] MEDS ORDERED: WARFARIN 5 MG TABLET PO STA (16:55)
[2020-07-21] MEDS ORDERED: WARFARIN 1 MG TABLET PO STA (16:58)
[2020-07-22] MEDS: PIPERACILLIN/TAZOBACTAM 3.375 GM in SODIUM CHLORIDE 0.9% MINIBAG 100 ML IV SCH (00:54)
[2020-07-22] MEDS: SODIUM CHLORIDE FLUSH 0.9% 10 ML SYRINGE IVP SCH ×4 (01:09→23:57)
[2020-07-22] MEDS: ACETAMINOPHEN 325 MG TABLET PO PRN ×2 (01:13→12:57)
[2020-07-22] MEDS: METOPROLOL 5 MG/5 ML VIAL IVP PRN (02:52)
[2020-07-22] MEDS: SODIUM CHLORIDE FLUSH 0.9% 10 ML SYRINGE IVP PRN (02:53)
[2020-07-22] MEDS: DEXTROSE 5% 1,000 ML IV SCH (05:23)
[2020-07-22 05:25] LABS: BASOPHILS % (AUTO) 0.4 %; EOSINOPHILS # (AUTO) 0.3 10^3/uL (0.0-0.7); EOSINOPHILS % (AUTO) 4.1 %; HGB - HEMOGLOBIN 8.9 g/dL (12.0-16.0); LYMPHOCYTES % (AUTO) 12.8 %; MEAN CORPUSCULAR HEMOGLOBIN 29.4 pg (27.0-31.0); MEAN CORPUSCULAR HGB CONC 31.8 g/dL (32.0-36.0); MEAN CORPUSCULAR VOLUME 92.4 fL (81.0-99.0); MEAN PLATELET VOLUME 9.6 fL (7.9-10.8); MONOCYTES # (AUTO) 0.6 10^3/uL (0.0-1.0); MONOCYTES % (AUTO) 7.7 %; NEUTROPHILS # (AUTO) 5.9 10^3/uL (1.5-6.6); NEUTROPHILS % (AUTO) 74.6 %; PLT - PLATELET COUNT 230 10^3/uL (130-450); RED BLOOD COUNT 3.03 10^6/uL (4.20-5.40); RED CELL DISTRIBUTION WIDTH 12.9 % (12.0-15.0); WHITE BLOOD COUNT 7.9 x10^3/uL (4.8-10.8)
[2020-07-22 05:37] LABS: CALCIUM 8.4 mg/dL (8.5-10.3); INR 1.9 (0.8-1.2); POTASSIUM 3.8 mmol/L (3.5-5.0); PT - PROTHROMBIN TIME 20.6 secs (9.9-12.6)
[2020-07-22] MEDS ORDERED: IOPAMIDOL-300 100 ML VIAL ONE (07:35)
--- NOTE | 2020-07-22 07:42 | PROVIDER PROGRESS NOTE ---
Subjective - Prog Note Date Prog Note Date: 07/22/20 Prog Note Time: 07:41 - Subjective Subjective: Rapid response called. The patient has been gradually improving and renal function was back down to baseline. Nursing was bathing her this morning and she was rolled over onto her left side when she suddenly started struggling to breathe. They were able to sit her up and she is verbalizing that she does not have any chest pain. But she cannot breathe. She is tachypneic, labored, and O2 sats are normal at 98 to 100%. She is frightened Current Medications - Current Medications Current Medications: Active Medications Acetaminophen (Acetaminophen 325 Mg Tablet) 650 mg PO Q4HR PRN PRN Reason: Pain 1 to 4 Last Admin: 07/22/20 01:13 Dose: 650 mg Documented by: Diltiazem HCl (Diltiazem Cd 120 Mg Capsule) 120 mg PO DAILY [facility] Last Admin: 07/21/20 08:01 Dose: 120 mg Documented by: Famotidine (Famotidine 20 Mg Tablet) 20 mg PO BID [facility] Last Admin: 07/21/20 21:03 Dose: 20 mg Documented by: Heparin Sodium (Porcine) (Heparin 5,000 Unit/Ml Vial) 5,000 unit SUBQ BID [facility] Last Admin: 07/21/20 21:04 Dose: 5,000 unit Documented by: Dextrose (D5w) 1,000 mls @ 100 mls/hr IV .Q10H [facility] Last Admin: 07/22/20 05:23 Dose: 100 mls/hr Documented by: Metoprolol Tartrate (Metoprolol 5 Mg/5 Ml Vial) 5 mg IVP Q6H PRN PRN Reason: Tachycardia Last Admin: 07/22/20 02:52 Dose: 5 mg Documented by: Multi-Ingredient Ointment (Zinc Oxide 20% Oint 30 Gm Tube) 1 applic TOP PRN PRN PRN Reason: Skin Care Last Admin: 07/21/20 00:41 Dose: 1 applic Documented by: Ondansetron HCl (Ondansetron 4 Mg/2 Ml Vial) 4 mg IVP Q6HR PRN PRN Reason: Nausea / Vomiting Last Admin: 07/21/20 08:17 Dose: 4 mg Documented by: Saccharomyces Boulardii (Saccharomyces Boulardii 250 Mg Capsule) 250 mg PO BIDWM [facility] Last Admin: 07/21/20 16:57 Dose: 250 mg Documented by: Sodium Chloride (Sodium Chloride Flush 0.9% 10 Ml Syringe) 10 ml IVP PRN PRN PRN Reason: NEEDED PER PROVIDER ORDERS Last Admin: 07/22/20 02:53 Dose: 10 ml Documented by: Sodium Chloride (Sodium Chloride Flush 0.9% 10 Ml Syringe) 10 ml IVP 0100,0900,1700 [facility] Last Admin: 07/22/20 01:09 Dose: Not Given Documented by: Vancomycin HCl (Vancomycin: Pharmacy To Dose) 1 each ONCE PRN PRN Reason: PER PHARMACY Warfarin Sodium (Warfarin 1 Mg Tablet) 1.5 mg PO SuMoSa@1400 [facility] Last Admin: 07/21/20 14:33 Dose: 1.5 mg Documented by: Warfarin Sodium (Warfarin 1 Mg Tablet) 3 mg PO @1400 [facility] lisinopriL [Lisinopril] 10 mg PO DAILY 03/23/15 Atorvastatin Calcium [Lipitor] 80 mg PO QPM 05/02/15 ARIPiprazole [Abilify] 5 mg PO QPM 07/19/20 Duloxetine HCl [Cymbalta] 60 mg PO DAILY 07/19/20 Furosemide [Lasix] 80 mg PO DAILY 07/19/20 Gabapentin [Neurontin] 800 mg PO TID 07/19/20 Oxybutynin [Ditropan] 5 mg PO BID 07/19/20 Pantoprazole [Protonix] 40 mg PO BID 07/19/20 Potassium Chloride 40 meq PO DAILY 07/19/20 Solifenacin Succinate [Vesicare] 10 mg PO DAILY 07/19/20 Warfarin [Coumadin] 1.5 mg PO SUMOSA 07/19/20 Warfarin [Coumadin] 3 mg PO TUWETH 07/19/20 oxyCODONE [Roxicodone] 5 mg PO Q6H 07/19/20 Objective - Vital Signs/Intake & Output Reviewed Vital Signs: Yes Vital Signs: Vital Signs x48h Temp Pulse Pulse Resp BP BP Pulse Ox 07/22/20 05:38 88 19 93 07/22/20 04:00 96 161/60 H 07/22/20 03:45 91 174/59 H 07/22/20 03:30 83 158/54 H 07/22/20 03:22 158/54 H 07/22/20 03:15 83 160/69 H 07/22/20 03:10 83 169/62 H 07/22/20 03:05 36.8 C 94 20 186/69 H 94 07/22/20 02:52 160/52 H Intake & Output: Intake & Output 07/19/20 07/20/20 07/21/20 07/22/20 23:59 23:59 23:59 23:59 Intake Total 3433.333 4426.000 3508.333 775 Output Total 600 957 529 9865 Balance 2833.333 3626.000 2608.333 -375 - Objective General Appearance: positive: Severe distress, Anxious, Other (Severely ove [facility] elderly woman sitting up in bed, tripoding, wig falling off, struggling to breathe and cannot complete sentences.) Eyes Bilateral: positive: PERRL, EOMI ENT: positive: No signs of dehydration Neck: positive: No JVD. negative: Stiff neck Respiratory: positive: Other (Poor air movement. But no crackles rhonchi wheezing.) Cardiovascular: positive: Regular rate & rhythm, Systolic murmur. negative: Gallop/S4, Friction rub Abdomen: positive: Non-tender, Nml bowel sounds, Other (Large abdominal pannus, cannot assess for organomegaly.) Skin: positive: Warm, Dry, Pallor Extremities: positive: Non-tender, No pedal edema Neurologic/Psychiatric: positive: Oriented x3, CN's nml (2-12) - Lab Results Fish Bones: 07/22/20 05:09 07/22/20 05:09 Other Labs: Lab Results x24hrs 07/22/20 07/22/20 07/22/20 Range/Units 05:09 05:09 05:09 WBC 7.9 (4.8-10.8) x10^3/uL RBC 3.03 L (4.20-5.40) 10^6/uL Hgb 8.9 L (12.0-16.0) g/dL Hct 28.0 L (37.0-47.0) % MCV 92.4 (81.0-99.0) fL MCH 29.4 (27.0-31.0) pg MCHC 31.8 L (32.0-36.0) g/dL RDW 12.9 (12.0-15.0) % Plt Count 230 (130-450) 10^3/uL MPV 9.6 (7.9-10.8) fL Neut # (Auto) 5.9 (1.5-6.6) 10^3/uL Lymph # (Auto) 1.0 L (1.5-3.5) 10^3/uL [place] # (Auto) 0.6 (0.0-1.0) 10^3/uL Eos # (Auto) 0.3 (0.0-0.7) 10^3/uL Baso # (Auto) 0.0 (0.0-0.1) 10^3/uL Absolute Nucleated RBC 0.00 x10^3/uL Nucleated RBC % 0.0 /100WBC PT 20.6 H (9.9-12.6) secs INR 1.9 H (0.8-1.2) Sodium 141 (135-145) mmol/L Potassium 3.8 (3.5-5.0) mmol/L Chloride 111 (101-111) mmol/L Carbon Dioxide 22 (21-32) mmol/L Anion Gap 8.0 (6-13) BUN 22 H (6-20) mg/dL Creatinine 1.0 (0.4-1.0) mg/dL Estimated GFR (MDRD) 55 L (>89) Glucose 131 H (70-100) mg/dL Calcium 8.4 L (8.5-10.3) mg/dL ABX Reporting Has patient been on IV antibiotics over the past 48 hours?: Yes Sepsis Event Note (H) - Evaluation Current Stage of Sepsis: Resolved Assessment/Plan - Problem List (1) Acute dyspnea Impression: Check EKG, troponin, CT pulmonary angiogram. (2) Gram-positive cocci bacteremia Impression: With Enterococcus and Staph epidermidis. I do not think these are contamination 's. Initial antibiotics were ceftriaxone and azithromycin on her first day here. Ceftriaxone was discontinued and she was switched to Zosyn on her second day here. Today is Day #3 of the zosyn and Day #4 azithromycin. Sources of her infection are pneumonia and UTI. This patient does have healing leg wounds as well but no sacral decubiti or trochanteric decubiti. Plan: Repeat blood cultures to see if she is responding to treatment. 14 days of antibiotic therapy to begin after her first negative set of blood cultures. If blood cultures are positive, she will need to have an echocardiogram, transesophageal echocardiogram and further work-up. I am going to focus on her bacteremia. I do think that her E. coli is colonization that is chronic and not a true UTI. Although I am puzzled about where the source of her Enterococcus and staph epi are from. We will change to vancomycin today to cover both of these bacteria (2) Pneumonia Conclusion/Plan: On admission, her daughter reported the patient having cough, phlegm, shortness of breath. Chest x-ray showed consolidation. Initial treatment was azithromycin and Rocephin. Changed to cefepime and azithromycin. Patient is definitely responded to therapy and that she is back to baseline ment ation. BUN and creatinine are almost back to normal. White cell count is back to normal. Plan: Antibiotics will continue depending on bacteremia work-up results. I will treat the bacteremia w continued abx but the azithromycin can be stopped since she has 2000 mg (3) UTI (urinary tract infection) Conclusion/Plan: E. coli UTI is resistant to ampicillin, Unasyn, Cipro, Levaquin. Sensitive to ertapenem, cefazolin, cefepime, ceftriaxone So her UTI was being treated by day #1 of Rocephin. Switching her to Zosyn did not help her UTI. I will await the sensitivities of the Enterococcus and staph before I switch her antibiotics yet again But I think she has Colonization. As such we will focus on treating the bacteremia (4)acute renal failure Conclusion/Plan: Creatinine 4.4>> 2.8>>1.8>>1.2 Baseline is 0.8. Plan: Continue antibiotics and IVF until at baseline. Encourage p.o. (5) Supratherapeutic INR Conclusion/Plan: Coumadin held on admission. Then resumed because INR was 2. But INR 1.5>>1.6 today. Coumadin is 1.5 mg on Wednesday. 3 mg on Wednesday. Right now she is just on 1.5 mg and does not start 3 mg until July 23. Since she is subtherapeutic I will start that today. (6) Hyperkalemia Conclusion/Plan: Has resolved. Yesterday she was 4.9, and today she is 4.2. (7) Atrial fibrillation Conclusion/Plan: Not on any rate lowering agents at home. She is on Coumadin. While here she was getting metoprolol as needed. She was started on Cardizem short acting p.o. Now that rate is under control we switched her to Cardizem CD 120 mg a day 07/20 (8) Opioid use disorder with possible accidental overdose leading to sedation, aspiration?, PNA, UTI, dehydration Conclusion/Plan: She has been taking more pain medication than usual according to the daughter. This resulted in sedation, and she is not getting up. She will go to the door and get her Meals on Wheels but she is stacked them up in the refrigerator and has not eaten the last 7 of them. Oxycodone pills were found next to her chair where she has easy access to take her medications. Daughter does not know but suspects that mom may have been taking medications too much. Patient does have a history of accidental opiate overdose in the past. (9) Chronic pain Conclusion/Plan: Patient has history of chronic back pain, we will hold pain medication opiates Today she is much more alert. Back to baseline mental status. We will start and reintroduce pain medicine when she asked for it (10)weakness The pt received 35 minutes of skilled PT 07/21, this was aimed at increasing her level of functional independence with transfers, improve her gait skills, and increase her activity tolerance. She performed bed mobility and gait training. These activities were tolerated without significant compliaints. However, she does require assist with all mobility and there are mild gross balance deficits in standing. At the end of the session the pt was sitting up in a recliner with all needs met and call light in reach. [ End ]
[2020-07-22] MEDS ORDERED: VANCOMYCIN INJ 2 GM in SODIUM CHLORIDE 0.9% 500 ML IV ONE (08:00)
[2020-07-22] MEDS ORDERED: IOPAMIDOL-300 100 ML VIAL IVP ONE (08:18)
--- NOTE | 2020-07-22 08:30 | CT Report ---
PROCEDURE: ANGIO CHEST W/WO INDICATIONS: sudden severe labored br p rolling on L side CONTRAST: IV CONTRAST: Isovue 300 ml: 100 PO CONTRAST: *NO PO CONTRAST TECHNIQUE: After the administration of intravenous contrast, 2 mm thick sections acquired from the pulmonary api amandeep to the posterior costophrenic angles. 3-dimensional maximum intensity projection (MIP) coronal a nd sagittal reformats were then acquired through the thorax. For radiation dose reduction, the follow ing was used: automated exposure control, adjustment of mA and/or kV according to patient size. COMPARISON: Thyroid ultrasound dated 05/25/2019 FINDINGS: Image quality: Patient motion somewhat degrades images.. Pulmonary arteries: Pulmonary arteries are normal in size, and demonstrate no intraluminal filling d efects to suggest central pulmonary embolism. Lungs and pleura: Patchy fluffy airspace consolidation bilaterally, right greater than left, with josé miguel pical intralobular paraseptal thickening. Findings are most consistent with asymmetric pulmonary sarah a. No pleural effusions or pneumothorax. Central and peripheral airways are patent. Mediastinum: Heart size is top normal with enlargement of the right ventricle and right atrium. Ther e is no pericardial effusion. No mediastinal or hilar adenopathy. Thoracic aorta is normal in calib er and enhancement. Large hiatal hernia containing most of the stomach and a portion of the colon. Th ere is no inflammatory change within the hernia sac. Bones and chest wall: No suspicious bony lesions. Ribs and thoracic spine appear intact throughout. The left lobe of the thyroid is quite prominent and has a nodular configuration. Question 3 cm left thyroid nodule. Note is made of the previous ultrasound, in which the left lobe is noted to have a 4 .8 cm maximum diameter or nodule. No axillary or supraclavicular adenopathy. Abdomen: Visualized upper abdominal solid organs appear normal in the early arterial phase of enhanc ement. IMPRESSION: 1. Although there is some patient motion artifact, there are no pulmonary emboli identified. Large an d moderate pulmonary emboli are excluded. 2. Top normal heart size with enlarged right ventricle and right atrium. 3. Findings in the lung anthony most likely represent asymmetric pulmonary edema. 4. Known large hiatal hernia, which contains most of the stomach and some colon. 5. Large left lobe thyroid nodule, as previously described. Recommend ultrasound guided thyroid FNA o n a nonemergent basis. Reviewed by: Wild Meadows MD on 07/22/2020 8:29 AM PDT Approved by: Wild Meadows MD on 07/22/2020 8:29 AM PDT Station ID: [id number]
[2020-07-22] MEDS: diltiaZEM CD 120 MG CAPSULE PO SCH (08:41)
[2020-07-22] MEDS: FAMOTIDINE 20 MG TABLET PO SCH ×2 (08:41→21:17)
[2020-07-22] MEDS: SACCHAROMYCES BOULARDII 250 MG CAPSULE PO SCH ×2 (08:41→17:05)
[2020-07-22] MEDS: HEPARIN 5,000 UNIT/ML VIAL SUBQ SCH ×2 (10:10→21:24)
--- NOTE | 2020-07-22 12:11 | PHARMACY PROGRESS NOTE ---
- Therapy Status Vancomycin regimen day #: 1 Therapy status: Awaiting steady state Basis for treatment: Culture result (E. faecalis and S. epidermidis on blood culture) Treatment indication: Bacteremia Trough goal: 15-20 Concurrent antibiotics: None - Zosyn discontinued - JP Risk Risk level for Acute Kidney Injury: Moderate Acute Kidney Injury risk factors: Wt >100kg or BMI >40, Goal trough >15 - Monitoring and Recommendation Clinical response to treatment: I&O Previous 24 hours 07/20/20 07/21/20 07/22/20 23:59 23:59 23:59 Intake Total 4426.000 3508.333 1325 Output Total 677 034 4312 Balance 3626.000 2608.333 175 Lab Results 07/22/20 07/21/20 07/20/20 05:09 06:30 05:15 BUN 22 H 39 H 74 H Creatinine 1.0 1.2 H 1.8 H Estimated GFR (MDRD) 55 L 44 L 28 L 07/19/20 07/18/20 06:12 13:10 BUN 99 H* 97 H* Creatinine 2.8 H 4.4 H Estimated GFR (MDRD) 17 L 10 L Cultures 07/21/20 08:37 Blood - Left Hand Blood Culture - Preliminary NO GROWTH AFTER 1 DAY 07/20/20 18:07 Blood - Right Arm Blood Culture - Preliminary NO GROWTH AFTER 1 DAY 07/18/20 19:52 Blood Blood Culture - Final Enterococcus Faecalis. Staphylococcus Epidermidis 07/18/20 20:27 Blood Blood Culture - Final Enterococcus Faecalis. Staphylococcus Epidermidis 07/18/20 12:45 Urine,Catheterized Urine Culture - Final Escherichia Coli 07/18/20 20:27 Blood Blood Culture (PCR) - Final Monitoring plan: Daily serum creatinine Next trough due prior to maintenance dose #: 4 Next trough due (date/time): 07/24 at 0830 Pharmacy recommendation: Continue current regime
[2020-07-22] MEDS: ONDANSETRON 4 MG/2 ML VIAL IVP PRN (13:02)
[2020-07-22] MEDS: WARFARIN 1 MG TABLET PO SCH (15:03)
--- NOTE | 2020-07-22 15:22 | XRAY Report ---
PROCEDURE: Chest for Line Placement INDICATIONS: new PICC @R basilic v. TECHNIQUE: One view of the chest was acquired. COMPARISON: 07/19/2020 FINDINGS: Surgical changes and devices: Right arm PICC line, tip projects to SVC right atrial junction.. Lungs and pleura: No pleural effusions or pneumothorax. Lungs are clear. Mediastinum: Mediastinal contours appear normal. Patchy bilateral infiltrates, right greater than le ft. Bones and chest wall: No suspicious bony lesions. Overlying soft tissues appear unremarkable. IMPRESSION: PICC line in satisfactory position. Patchy bilateral infiltrates, right greater than left. Reviewed by: Wild Meadows MD on 07/22/2020 3:21 PM PDT Approved by: Wild Meadows MD on 07/22/2020 3:21 PM PDT Station ID: [id number]
--- NOTE | 2020-07-22 15:33 | ANESTHESIA PROCEDURE NOTE ---
Anesth Central Line Template - Central Line Central Line Preparation: Consent Obtained Central line location: Right Brachial Central line type: PICC Single Lumen Central line catheter tip site resides: Superior vena cava (SVC) Central line aftercare: Chlorhexidine disc placed, Bundle checklist complete (trimmed at 42, 4cm exposed)
[2020-07-22] MEDS: ARIPiprazole 5 MG TABLET PO SCH (21:16)
[2020-07-22] MEDS: ATORVASTATIN 40 MG TABLET PO SCH (21:17)
[2020-07-22] MEDS: VANCOMYCIN INJ 1 GM, VANCOMYCIN INJ 250 MG in SODIUM CHLORIDE 0.9% 250 ML IV SCH (21:17)
[2020-07-22] MEDS ORDERED: FUROSEMIDE 40 MG/4 ML VIAL IVP STA (23:47)
[2020-07-23] MEDS ORDERED: diltiaZEM INJ 5 MG/ML VIAL IVP ONE (00:41)
[2020-07-23] MEDS ORDERED: NITROGLYCERIN SL 0.4 MG TABLET SL PRN (00:47)
[2020-07-23] MEDS ORDERED: ASPIRIN CHEW 81 MG TABLET PO STA (00:48)
[2020-07-23] MEDS ORDERED: METOPROLOL 5 MG/5 ML VIAL IVP STA (00:49)
[2020-07-23] MEDS: ALBUTEROL NEB 2.5 MG/3 ML INH PRN ×2 (00:58→09:15)
[2020-07-23] MEDS ORDERED: NITROGLYCERIN 2% PASTE TOP STA (01:14)
[2020-07-23] MEDS: SODIUM CHLORIDE FLUSH 0.9% 10 ML SYRINGE IVP PRN (01:14)
--- NOTE | 2020-07-23 01:35 | DISCHARGE SUMMARY ---
Discharge Summary Admit Date: 07/18/20 Discharge Date: 07/23/20 Discharging Provider: Enrique Koo Primary Care Provider: Delio Manriquez Code Status: Do Not Attempt Resuscitation Condition at Discharge: Critical Discharge Disposition: 02 Transfer Acute Care Hosp Discharge [facility] Name: [facility] - ALLERGIES Allergies/Adverse Reactions: Allergies Allergy/AdvReac Type Severity Reaction Status Date / Time morphine Allergy Unknown Verified 07/18/20 11:31 phenobarbital Allergy Hives Verified 07/18/20 11:31 doxycycline AdvReac Nausea Verified 07/18/20 11:31 - MEDICATIONS Home Medications: Ambulatory Orders Medication Instructions Recorded Confirmed lisinopriL [Lisinopril] 10 mg PO DAILY 03/23/15 07/19/20 Atorvastatin Calcium [Lipitor] 80 mg PO QPM 05/02/15 07/19/20 ARIPiprazole [Abilify] 5 mg PO QPM 07/19/20 07/19/20 Duloxetine HCl [Cymbalta] 60 mg PO DAILY 07/19/20 07/19/20 Furosemide [Lasix] 80 mg PO DAILY 07/19/20 07/19/20 Gabapentin [Neurontin] 800 mg PO TID 07/19/20 07/19/20 Oxybutynin [Ditropan] 5 mg PO BID 07/19/20 07/19/20 Pantoprazole [Protonix] 40 mg PO BID 07/19/20 07/19/20 Potassium Chloride 40 meq PO DAILY 07/19/20 07/19/20 Solifenacin Succinate [Vesicare] 10 mg PO DAILY 07/19/20 07/19/20 Warfarin [Coumadin] 1.5 mg PO SUMOSA 07/19/20 07/19/20 Warfarin [Coumadin] 3 mg PO TUWETH 07/19/20 07/19/20 oxyCODONE [Roxicodone] 5 mg PO Q6H 07/19/20 07/19/20 - LABS Result Diagrams: 07/22/20 05:09 07/22/20 05:09 - SEPSIS Current Stage of Sepsis: Resolved
[2020-07-23] MEDS ORDERED: CLOPIDOGREL 300 MG TABLET PO STA (01:46)
--- NOTE | 2020-07-23 01:58 | PROVIDER PROGRESS NOTE ---
Commercial Attorney Note - Commercial Attorney Note Commercial Attorney Note: I was called to bedside overnight as the patient began to desaturate and complain of worsening dyspnea. She was 88% on 2 L of oxygen via nasal cannula and required 4 L of oxygen to maintain an oxygen saturation of 93 to 94%. She was on room air throughout the day. She had complained of dyspnea yesterday morning and she underwent a CT angiogram which showed mild pulmonary vascular congestion but no pulmonary embolism. Troponins were checked and they were mildly elevated. Her dyspnea had resolved after an hour and she was doing well throughout the day. On my evaluation, the patient complains of dyspnea and difficulty catching her breath. She denies chest pain. She does have a nonproductive cough. Her vitals reveal she is tachycardic with a heart rate of 136. Blood pressure was 150/56. She is tachypneic with respiratory rate in the low 30s. She is now on an oxymask saturating 95% on 7 L of oxygen via nasal cannula. She has crackles bilaterally and is tachypneic and appears to be in distress. She is tachycardic with occasional PVCs. She has +1 pitting edema in her bilateral lower extremities. I ordered a stat chest x-ray which on my read, shows worsening pulmonary vascular congestion. I ordered 40 mg of Lasix IV as well as 5 mg of Lopressor IV. I ordered an EKG and troponin. Her EKG is concerning for a STEMI. It is sinus tachycardia with ST elevations in V1 and V2 which are new compared to prior EKG. She also has ST depressions in V4 to V6. I ordered 325 mg of aspirin. Her INR this morning was 1.9 but I did order a heparin drip with bolus. I also ordered a loading dose of Plavix. A stat troponin was obtained which was elevated at 88 which was increased from the 20s earlier. To call the patient's daughter, Jana, but I was unable to get a hold of her. I was then able to reach the patient's son, Joe, and I discussed his mother's decline in her respiratory status. I informed him that I am concerned she is having a myocardial infarction and that ideally we would transfer to high-level care for an angiogram. I asked him if this would be within the patient's wishes given she is a DNR. The patient is currently confused and unable to make her own medical decisions. He told me he would reach out to his sister, Jana, to discuss together and make a decision. While I awaited their phone call, I did call [facility] to discuss transfer but they have no beds available. I then called [facility] who stated they could take the patient if family decides to go down that route. I did provide him with preliminary information and told him that I would call back and speak with the casserole preparer once I have the family's decision. Jana and Joe then called me back and I discussed the patient's condition with Jana. I explained to her once again that I am concerned the patient is having a STEMI and that ideally we would transfer her to a higher level of care for an angiogram. I told her that she is relatively stable for the time being but without intervention, this could become more severe and the patient may ultimately pass away from this. I informed her that her other option is to attempt to treat this medically with anticoagulation. Once again I informed her that without transfer for an angiogram, her condition could decline rapidly. Both Jana and Joe agreed that transfer would not be within the goals of care for the patient. They are agreeable to medical management here at our facility. I did recommend that they both visit the patient as although she is stable for the time being, she could decline. They will both be visiting as soon as possible. I did evaluate the patient again after this and although she is still hypoxic, she appears much more comfortable. Diagnosis: 1) STEMI 2) Acute hypoxic respiratory failure Plan: She was given aspirin 325 mg once as well as Plavix 300 mg once. She was given a heparin bolus and started on drip. We have continued her on a beta-nevin and she was given 40 mg of IV Lasix. She was also started on Nitropaste. We will transfer her to the intensive care unit for closer monitoring and will consider a nitroglycerin infusion if necessary. We will continue her on Lasix 40 mg in the morning again as well as 81 mg of aspirin and 75 mg of Plavix. We will keep her on the heparin drip. We will repeat an echocardiogram tomorrow. We will continue supplemental oxygen for goal saturation greater than 92%. We did discuss the potential use of fibrinolytics with the family. She did not have any absolute contraindications but she does have a couple of relative contraindications given her cognitive impairment and the current use of warfarin. I am concerned about her bleeding risk and that a bleed from the use of fibrinolytics would likely be catastrophic for the patient. After discussing the potential risks and benefits as well as reviewing the patient's goals of care again with the family, decision was made to hold off on the use of fibrinolytics and to continue with just anticoagulation and the use of aspirin/ Plavix. Total critical care time: Approximately 98 minutes. This time included examining the patient, vital signs including pulse oximetry, ordering and reviewing labs and imaging studies, ordering urgent treatment and developing a plan. This also included evaluating the patient's response to treatment. This also included discussing care with family via phone to make medical decisions as well as contacting another facility for potential transfer for emergent care.
[2020-07-23] MEDS: HEPARIN 25000UNITS/500ML (D5W) 25,000 UNIT/500 ML BAG IV SCH ×2 (03:01→22:46)
[2020-07-23 05:18] LABS: BASOPHILS # (AUTO) 0.1 10^3/uL (0.0-0.1); BASOPHILS % (AUTO) 0.3 %; HCT - HEMATOCRIT 29.4 % (37.0-47.0); HGB - HEMOGLOBIN 9.4 g/dL (12.0-16.0); LYMPHOCYTES # (AUTO) 0.8 10^3/uL (1.5-3.5); MEAN CORPUSCULAR HEMOGLOBIN 29.7 pg (27.0-31.0); MEAN CORPUSCULAR VOLUME 92.7 fL (81.0-99.0); MEAN PLATELET VOLUME 9.9 fL (7.9-10.8); MONOCYTES # (AUTO) 1.8 10^3/uL (0.0-1.0); MONOCYTES % (AUTO) 9.1 %; NEUTROPHILS # (AUTO) 16.7 10^3/uL (1.5-6.6); PLT - PLATELET COUNT 274 10^3/uL (130-450); RED BLOOD COUNT 3.17 10^6/uL (4.20-5.40); RED CELL DISTRIBUTION WIDTH 12.8 % (12.0-15.0); WHITE BLOOD COUNT 19.3 x10^3/uL (4.8-10.8)
[2020-07-23 05:21] LABS: INR 2.7 (0.8-1.2); PT - PROTHROMBIN TIME 28.3 secs (9.9-12.6)
[2020-07-23 05:28] LABS: CALCIUM 8.5 mg/dL (8.5-10.3); CREATININE 1.1 mg/dL (0.4-1.0); POTASSIUM 3.5 mmol/L (3.5-5.0)
[2020-07-23] MEDS: GABAPENTIN 400 MG CAPSULE PO SCH ×3 (06:49→22:24)
[2020-07-23] MEDS: MORPHINE 2 MG/ML CARPUJECT IVP PRN ×3 (07:02→19:36)
--- NOTE | 2020-07-23 07:24 | PROVIDER PROGRESS NOTE ---
Assessment/Plan - Problem List (1) STEMI (ST elevation myocardial infarction) Assessment/Plan: EKG done earlier this morning showed ST elevations in V1 and V2 and ST depressions in V4 to V6. The findings were discussed with the patient's daughter Jana and son Herson who opted for medical management. The patient was given aspirin 325mg po X1 And Plavix 300 mg p.o. x1. She was also started on Nitropaste and heparin drip. She was then transferred to the ICU. She is also on atorvastatin 80mg qpm, Aspirin 81mg and plavix 75mg po daily following Metoprolol 25mg po bid has been ordered Repeat 2D echocardiogram today 07/23/2020 showed an ejection fraction of 30% with akinesis/severe hypokinesis in the LAD distribution. Her 2D echocardiogram yesterday 07/22/20 showed an overall left ventricular systolic function which was normal with an ejection fraction of 65 to 70%. There was impaired relaxation consistent with grade 1 diastolic dysfunction. The right ventricle was normal size. There was mild aortic stenosis with peak/mean pressure gradient of 31 mmHg / 15mmHg The trend of patient's troponin was 27.9 > 288.4 > 435.4 > 2031.3 > 2837.4 (2) Heart failure Assessment/Plan: Her 2D echocardiogram yesterday 07/22/20 showed an overall left ventricular sy stolic function which was normal with an ejection fraction of 65 to 70%. There was impaired relaxation consistent with grade 1 diastolic dysfunction. The right ventricle was normal size. There was mild aortic stenosis with peak/mean pressure gradient of 31 mmHg / 15mmHg Repeat 2D echocardiogram today 07/23/2020 showed an ejection fraction of 30% with akinesis/severe hypokinesis in the LAD distribution.Patient was given Lasix 40 mg IV x1 yesterday. Lasix 40 mg IV daily. Will adjust in subsequent days. Patient was initially on Lab, then oxymask. This was deescalated to 3L oxygen via nasal cannula Metoprolol succinate 25 mg p.o. twice daily ordered. (3) Gram-positive cocci bacteremia Assessment/Plan: Patient's blood cultures on 07/18/2020 grew E faecalis and Staph epidermidis. Subsequent blood cultures of 07/20/20 have been no growth after 2 days. Patient is on vancomycin. We will continue with pharmacy to dose. His white blood cell count this morning was 19.3. Yesterday it was 7.9. Suspect this could be reactive due to the episode of dyspnea related to STEMI earlier this morning. Will recheck with morning labs. (4) Pneumonia Qualifiers: Pneumonia type: due to unspecified organism Laterality: left Lung location: lower lobe of lung Qualified Code(s): J18.9 - Pneumonia, unspecified organism Assessment/Plan: Repeat chest x-ray this morning still reported bilateral pneumonia, right greater than left with persistent superimposed pulmonary edema likely cardiogenic in origin. Will repeat chest xray in the morning. Patient was treated with azithromycin and Rocephin 07/18/20-07/19/20. She received Zosyn on 07/19/20 to 07/20/20 Currently on Vancomycin IV only with pharmacy dosing (5) UTI (urinary tract infection) Qualifiers: Urinary tract infection type: acute cystitis Hematuria presence: without hematuria Qualified Code(s): N30.00 - Acute cystitis without hematuria Assessment/Plan: E. coli grew on urine culture of 07/18/20 Was on ceftriaxone 07/18-07/19. Then switched to Zosyn 07/19-07/20 (6) Chronic pain Assessment/Plan: Morphine 1mg q3hrs prn (7) Acute renal failure Qualifiers: Acute renal failure type: unspecified Qualified Code(s): N17.9 - Acute kidney failure, unspecified Assessment/Plan: Improving. Creatinine 1.1 and estimated GFR 49 Creatinine at admission was 4.4 (8) Atrial fibrillation Qualifiers: Atrial fibrillation type: paroxysmal Qualified Code(s): I48.0 - Paroxysmal atrial fibrillation Assessment/Plan: INR today is 2.7. Coumadin is currently held because the patient is on heparin drip for STEMI. Following family's wish for medical management only. On metoprolol succinate 25 mg p.o. twice daily. Patient's diltiazem was held. - Current Meds Current Meds: Current Medications Generic Name Dose Route Start Last Admin Trade Name Freq PRN Reason Stop Dose Admin Acetaminophen 650 mg 07/18/20 16:20 07/22/20 12:57 Acetaminophen 325 Mg Tablet PO 650 mg Q4HR PRN Administration Pain 1 to 4 Albuterol 2.5 mg 07/23/20 00:27 07/23/20 00:58 Albuterol Neb 2.5 Mg/3 Ml INH 2.5 mg RTQ4H PRN Administration Wheezing Aripiprazole 5 mg 07/22/20 21:00 07/22/20 21:16 Aripiprazole 5 Mg Tablet PO 5 mg QPM CHELSEA Administration Atorvastatin Calcium 80 mg 07/22/20 21:00 07/22/20 21:17 Atorvastatin 40 Mg Tablet PO 80 mg QPM CHELSEA Administration Diltiazem HCl 120 mg 07/20/20 14:00 07/22/20 08:41 Diltiazem Cd 120 Mg Capsule PO 120 mg DAILY CHELSEA Administration Famotidine 20 mg 07/18/20 21:00 07/22/20 21:17 Famotidine 20 Mg Tablet PO 20 mg BID CHELSEA Administration Gabapentin 800 mg 07/23/20 06:00 07/23/20 06:49 Gabapentin 400 Mg Capsule PO 800 mg TID CHELSEA Administration Vancomycin HCl 1 gm/ 250 mls @ 167 mls/hr 07/22/20 21:00 07/22/20 23:00 Vancomycin HCl 250 mg/ Sodium IV Infused Chloride Q12H CHELSEA Infusion Heparin Sodium/Dextrose 25,000 unit in 500 mls @ 26.64 mls/hr 07/23/20 02:00 07/23/20 03:01 Heparin Sodium/Dextrose IV 12 unit/kg/hr .[id number] CHELSEA 26.64 mls/hr Administration Protocol 12 UNIT/KG/HR Metoprolol Tartrate 5 mg 07/18/20 18:18 07/22/20 02:52 Metoprolol 5 Mg/5 Ml Vial IVP 5 mg Q6H PRN Administration Tachycardia Morphine Sulfate 1 mg 07/23/20 06:53 07/23/20 07:02 Morphine 2 Mg/Ml Carpuject IVP 1 mg Q3HR PRN Administration PAIN Multi-Ingredient Ointment 1 applic 07/20/20 04:36 07/21/20 00:41 Zinc Oxide 20% Oint 30 Gm Tube TOP 1 applic PRN PRN Administration Skin Care Ondansetron HCl 4 mg 07/18/20 16:20 07/22/20 13:02 Ondansetron 4 Mg/2 Ml Vial IVP 4 mg Q6HR PRN Administration Nausea / Vomiting Saccharomyces Boulardii 250 mg 07/19/20 08:00 07/22/20 17:05 Saccharomyces Boulardii 250 Mg Capsule PO 250 mg BIDWM CHELSEA Administration Sodium Chloride 10 ml 07/18/20 16:20 07/23/20 01:14 Sodium Chloride Flush 0.9% 10 Ml Syringe IVP 10 ml PRN PRN Administration NEEDED PER PROVIDER ORDERS Sodium Chloride 10 ml 07/18/20 17:00 07/22/20 23:57 Sodium Chloride Flush 0.9% 10 Ml Syringe IVP 10 ml 0100,0900,1700 CHELSEA Administration - Lab Result Fish Bone Diagrams: 07/23/20 05:02 07/23/20 05:02 Subjective - Subjective Patient Reports: Other (Patient is very somnolent. Readily wakes to voice. Denies chest pain, abd pain or nausea. Was on a oxymask. Was significantly dyspneic overnight with O2Sat of 88% on 2L N/C. Was also tachy with pulse 136 and productive cough. Children at bedside.) Objective Vital Signs: Vital Signs - 24 hr 07/22/20 07/22/20 07/22/20 07:35 07:43 14:00 Temperature 36.6 C 37.0 C Heart Rate Heart Rate [ 88 Brachial] Heart Rate [ 85 97 Monitoring electrodes] Heart Rate [ Radial] Respiratory 22 20 24 Rate Blood Pressure Blood Pressure 153/57 H [Left Brachial artery] Blood Pressure 163/114 H 170/127 H [Right Brachial artery] Blood Pressure [Right Radial artery] O2 Saturation 96 95 94 07/22/20 07/22/20 07/23/20 16:03 23:35 00:59 Temperature 36.8 C Heart Rate 136 H Heart Rate [ Brachial] Heart Rate [ Monitoring electrodes] Heart Rate [ 96 Radial] Respiratory 20 36 H Rate Blood Pressure Blood Pressure [Left Brachial artery] Blood Pressure [Right Brachial artery] Blood Pressure 149/71 H [Right Radial artery] O2 Saturation 97 88 L 07/23/20 07/23/20 07/23/20 01:09 01:14 01:19 Temperature Heart Rate Heart Rate [ 108 H 116 H Brachial] Heart Rate [ Monitoring electrodes] Heart Rate [ Radial] Respiratory Rate Blood Pressure 150/56 H Blood Pressure [Left Brachial artery] Blood Pressure 83/54 L [Right Brachial artery] Blood Pressure 143/70 H [Right Radial artery] O2 Saturation 07/23/20 07/23/20 07/23/20 01:24 01:33 02:00 Temperature Heart Rate Heart Rate [ 117 H Brachial] Heart Rate [ 110 H Monitoring electrodes] Heart Rate [ 126 H Radial] Respiratory 38 H Rate Blood Pressure Blood Pressure 122/80 [Left Brachial artery] Blood Pressure 95/65 [Right Brachial artery] Blood Pressure 113/73 [Right Radial artery] O2 Saturation 96 07/23/20 07/23/20 07/23/20 02:40 03:00 04:00 Temperature Heart Rate 123 H Heart Rate [ Brachial] Heart Rate [ 120 H 118 H Monitoring electrodes] Heart Rate [ Radial] Respiratory 38 H 22 Rate Blood Pressure Blood Pressure 126/48 L 122/106 H [Left Brachial artery] Blood Pressure [Right Brachial artery] Blood Pressure [Right Radial artery] O2 Saturation 97 96 07/23/20 07/23/20 07/23/20 05:00 06:00 07:00 Temperature 36.9 C Heart Rate Heart Rate [ Brachial] Heart Rate [ 108 H 103 H 108 H Monitoring electrodes] Heart Rate [ Radial] Respiratory 33 H 28 H 25 H Rate Blood Pressure Blood Pressure 128/75 132/79 H 142/84 H [Left Brachial artery] Blood Pressure [Right Brachial artery] Blood Pressure [Right Radial artery] O2 Saturation 96 98 99 Oxygen O2 Source Oxymask I&O (Last 24 Hrs): Intake and Output Totals x24h 07/21/20 07/22/20 07/23/20 23:59 23:59 23:59 Intake Total 3508.333 2375 Output Total 900 2850 2875 Balance 6791.333 -908 -9714 General: Alert, No acute distress, Other (Somnolent but arousable to verbal stimuli Can respond to simple questions requiring yes/no answers) HEENT: PERRLA, EOMI Neck: Supple, No JVD Neuro: Disoriented, Non Focal Cardiovascular: Other (Mildly tachycardic) Respiratory: Chest non-tender, No respiratory distress, Breath sounds nml Abdomen: Normal bowel sounds, Soft, No tenderness Extremities: Other (+1 edema) Skin: No rashes, No breakdown - Results Results: Laboratory Results WBC 19.3 x10^3/uL (4.8-10.8) H 07/23/20 05:02 RBC 3.17 10^6/uL (4.20-5.40) L 07/23/20 05:02 Hgb 9.4 g/dL (12.0-16.0) L 07/23/20 05:02 Hct 29.4 % (37.0-47.0) L 07/23/20 05:02 MCV 92.7 fL (81.0-99.0) 07/23/20 05:02 MCH 29.7 pg (27.0-31.0) 07/23/20 05:02 MCHC 32.0 g/dL (32.0-36.0) 07/23/20 05:02 RDW 12.8 % (12.0-15.0) 07/23/20 05:02 Plt Count 274 10^3/uL (130-450) 07/23/20 05:02 MPV 9.9 fL (7.9-10.8) 07/23/20 05:02 Neut # (Auto) 16.7 10^3/uL (1.5-6.6) H 07/23/20 05:02 Lymph # (Auto) 0.8 10^3/uL (1.5-3.5) L 07/23/20 05:02 [place] # (Auto) 1.8 10^3/uL (0.0-1.0) H 07/23/20 05:02 Eos # (Auto) 0.0 10^3/uL (0.0-0.7) 07/23/20 05:02 Baso # (Auto) 0.1 10^3/uL (0.0-0.1) 07/23/20 05:02 Absolute Nucleated RBC 0.00 x10^3/uL 07/23/20 05:02 Nucleated RBC % 0.0 /100WBC 07/23/20 05:02 PT 28.3 secs (9.9-12.6) H 07/23/20 05:02 INR 2.7 (0.8-1.2) H 07/23/20 05:02 Anti-Xa Level 0.1 U/mL (-0.7) 07/23/20 01:35 Sodium 141 mmol/L (135-145) 07/23/20 05:02 Potassium 3.5 mmol/L (3.5-5.0) 07/23/20 05:02 Chloride 111 mmol/L (101-111) 07/23/20 05:02 Carbon Dioxide 21 mmol/L (21-32) 07/23/20 05:02 Anion Gap 9.0 (6-13) 07/23/20 05:02 BUN 16 mg/dL (6-20) 07/23/20 05:02 Creatinine 1.1 mg/dL (0.4-1.0) H 07/23/20 05:02 Estimated GFR (MDRD) 49 (>89) L 07/23/20 05:02 Glucose 211 mg/dL (70-100) H 07/23/20 05:02 POC Whole Bld Glucose 123 mg/dL (70 - 100) H 07/22/20 12:52 Estimat Average Glucose 137 mg/dL (70-100) H 07/18/20 13:10 Hemoglobin A1c % 6.4 % (4.27-6.07) H 07/18/20 13:10 Lactic Acid 0.7 mmol/L (0.5-2.2) 07/18/20 13:10 Calcium 8.5 mg/dL (8.5-10.3) 07/23/20 05:02 Total Bilirubin 0.5 mg/dL (0.2-1.0) 07/18/20 13:10 AST 17 IU/L (10-42) 07/18/20 13:10 ALT 12 IU/L (10-60) 07/18/20 13:10 Alkaline Phosphatase 86 IU/L (42-121) 07/18/20 13:10 Troponin I High Sens 2031.3 ng/L (2.3-14.8) H* 07/23/20 05:02 Total Protein 7.5 g/dL (6.7-8.2) 07/18/20 13:10 Albumin 3.0 g/dL (3.2-5.5) L 07/18/20 13:10 Globulin 4.5 g/dL (2.1-4.2) H 07/18/20 13:10 Albumin/Globulin Ratio 0.7 (1.0-2.2) L 07/18/20 13:10 Lipase 16 U/L (22-51) L 07/18/20 13:10 Urine Color YELLOW 07/18/20 12:45 Urine Clarity SL. CLOUDY (CLEAR) 07/18/20 12:45 Urine pH 5.0 PH (5.0-7.5) 07/18/20 12:45 Ur Specific [place] 1.025 (1.002-1.030) 07/18/20 12:45 Urine Protein NEGATIVE mg/dL (NEGATIVE) 07/18/20 12:45 Urine Glucose (UA) NEGATIVE mg/dL (NEGATIVE) 07/18/20 12:45 Urine Ketones NEGATIVE mg/dL (NEGATIVE) 07/18/20 12:45 Urine Occult Blood NEGATIVE (NEGATIVE) 07/18/20 12:45 Urine Nitrite NEGATIVE (NEGATIVE) 07/18/20 12:45 Urine Bilirubin NEGATIVE (NEGATIVE) 07/18/20 12:45 Urine Urobilinogen 0.2 (NORMAL) E.U./dL (NORMAL) 07/18/20 12:45 Ur Leukocyte Esterase MODERATE (NEGATIVE) H 07/18/20 12:45 Urine RBC 0-5 /HPF (0-5) 07/18/20 12:45 Urine WBC >25 /HPF (0-5) H 07/18/20 12:45 Ur Squamous Epith Cells FEW Squamous (<= Few) 07/18/20 12:45 Urine Bacteria Few /HPF (None Seen) 07/18/20 12:45 Ur Microscopic Review INDICATED 07/18/20 12:45 Urine Culture Comments INDICATED 07/18/20 12:45 Nasal Adenovirus (PCR) NOT DETECTED 07/18/20 14:30 Nasal B. parapertussis DNA (PCR) NOT DETECTED 07/18/20 14:30 Nasal Coronavir 229E PCR NOT DETECTED 07/18/20 14:30 Nasal Coronavir HKU1 PCR NOT DETECTED 07/18/20 14:30 Nasal Coronavir NL63 PCR NOT DETECTED 07/18/20 14:30 Nasal Coronavir OC43 PCR NOT DETECTED 07/18/20 14:30 Nasal Enterovir/Rhinovir PCR NOT DETECTED 07/18/20 14:30 Nasal Influenza B PCR NOT DETECTED 07/18/20 14:30 Nasal Influenza A PCR NOT DETECTED 07/18/20 14:30 Nasal Parainfluen 1 PCR NOT DETECTED 07/18/20 14:30 Nasal Parainfluen 2 PCR NOT DETECTED 07/18/20 14:30 Nasal Parainfluen 3 PCR NOT DETECTED 07/18/20 14:30 Nasal Parainfluen 4 PCR NOT DETECTED 07/18/20 14:30 Nasal RSV (PCR) NOT DETECTED 07/18/20 14:30 Nasal Screen MRSA (PCR) NEGATIVE (NEGATIVE) 07/19/20 15:57 Nasal B.pertussis DNA PCR NOT DETECTED 07/18/20 14:30 Nasal C.pneumoniae (PCR) NOT DETECTED 07/18/20 14:30 Alexx Human Metapneumo PCR NOT DETECTED 07/18/20 14:30 Nasal M.pneumoniae (PCR) NOT DETECTED 07/18/20 14:30 Nasal SARS-CoV-2 (PCR) NOT DETECTED 07/18/20 14:30 Urine Opiates Screen NEGATIVE (NEGATIVE) 07/18/20 17:39 Ur Oxycodone Screen POSITIVE (NEGATIVE) H 07/18/20 17:39 Urine Methadone Screen NEGATIVE (NEGATIVE) 07/18/20 17:39 Ur Propoxyphene Screen NEGATIVE (NEGATIVE) 07/18/20 17:39 Ur Barbiturates Screen NEGATIVE (NEGATIVE) 07/18/20 17:39 Ur Tricyclics Screen POSITIVE (NEGATIVE) H 07/18/20 17:39 Ur Phencyclidine Scrn NEGATIVE (NEGATIVE) 07/18/20 17:39 Ur Amphetamine Screen NEGATIVE (NEGATIVE) 07/18/20 17:39 U Methamphetamines Scrn NEGATIVE (NEGATIVE) 07/18/20 17:39 U Benzodiazepines Scrn NEGATIVE (NEGATIVE) 07/18/20 17:39 Urine Cocaine Screen NEGATIVE (NEGATIVE) 07/18/20 17:39 U Cannabinoids Screen NEGATIVE (NEGATIVE) 07/18/20 17:39 Sepsis Event Note (H) - Evaluation Current Stage of Sepsis: Resolved ABX Reporting Has patient been on IV antibiotics over the past 48 hours?: Yes
--- NOTE | 2020-07-23 08:16 | XRAY Report ---
PROCEDURE: Chest 1 View X-Ray INDICATIONS: Dyspnea. New hypoxia. TECHNIQUE: One view of the chest was acquired. COMPARISON: Prior chest plain films 07/22/[address] pulmonary angiogram also same day. 07/19/2020 ches t plain film. FINDINGS: Surgical changes and devices: PICC line from right-sided approach stable position. Lungs and pleura: No pleural effusions or pneumothorax. Lungs are abnormal, with bilateral alveolar infiltration, greater on the right than the left predominantly at the right upper lobe. Superimposed pulmonary edema appears present. Mediastinum: Mediastinal contours appear normal. Heart size is at the upper limits of normal suspec t moderately large hiatal hernia behind the heart. Bones and chest wall: No suspicious bony lesions. Overlying soft tissues appear unremarkable. IMPRESSION: Bilateral pneumonia, right greater than left, with persistent superimposed pulmonary edema likely car diogenic in origin. PICC line in normal position. Moderately large hiatal hernia behind the heart, al so seen by CT scanning 07/22/2020. Reviewed by: Rodríguez Lu MD on 07/23/2020 8:14 AM PDT Approved by: Rodríguez Lu MD on 07/23/2020 8:14 AM PDT Station ID: [id number]
[2020-07-23] MEDS: SODIUM CHLORIDE FLUSH 0.9% 10 ML SYRINGE IVP SCH ×2 (08:31→18:18)
[2020-07-23] MEDS: ASPIRIN CHEW 81 MG TABLET PO SCH (08:42)
[2020-07-23] MEDS: FAMOTIDINE 20 MG TABLET PO SCH ×2 (08:55→21:15)
[2020-07-23] MEDS: SACCHAROMYCES BOULARDII 250 MG CAPSULE PO SCH ×2 (08:55→18:18)
[2020-07-23] MEDS: DULoxetine 30 MG CAPSULE PO SCH ×2 (08:55→15:15)
[2020-07-23] MEDS ORDERED: FUROSEMIDE 40 MG/4 ML VIAL IVP SCH (09:00)
[2020-07-23] MEDS ORDERED: lisinopriL 5 MG TABLET PO SCH (09:00)
[2020-07-23] MEDS: VANCOMYCIN INJ 1 GM, VANCOMYCIN INJ 250 MG in SODIUM CHLORIDE 0.9% 250 ML IV SCH ×2 (09:03→21:10)
[2020-07-23] MEDS: CLOPIDOGREL 75 MG TABLET PO SCH (10:33)
[2020-07-23] MEDS: METOPROLOL 5 MG/5 ML VIAL IVP PRN (10:38)
[2020-07-23] MEDS ORDERED: WARFARIN 1 MG TABLET PO SCH (14:00)
[2020-07-23] MEDS: ACETAMINOPHEN 325 MG TABLET PO PRN (15:10)
[2020-07-23] MEDS ORDERED: METOPROLOL SUCCINATE 25 MG TABLET PO SCH (21:00)
[2020-07-23] MEDS: ARIPiprazole 5 MG TABLET PO SCH (21:10)
[2020-07-23] MEDS: ATORVASTATIN 40 MG TABLET PO SCH (21:15)
[2020-07-23] MEDS: METOPROLOL SUCCINATE 25 MG TABLET PO SCH (21:16)
[2020-07-24] MEDS: ACETAMINOPHEN 325 MG TABLET PO PRN ×4 (02:54→18:30)
[2020-07-24 05:13] LABS: BASOPHILS % (AUTO) 0.4 %; EOSINOPHILS # (AUTO) 0.2 10^3/uL (0.0-0.7); HCT - HEMATOCRIT 27.6 % (37.0-47.0); HGB - HEMOGLOBIN 8.7 g/dL (12.0-16.0); LYMPHOCYTES # (AUTO) 1.8 10^3/uL (1.5-3.5); MEAN CORPUSCULAR HEMOGLOBIN 29.5 pg (27.0-31.0); MEAN CORPUSCULAR HGB CONC 31.5 g/dL (32.0-36.0); MEAN CORPUSCULAR VOLUME 93.6 fL (81.0-99.0); MEAN PLATELET VOLUME 10.5 fL (7.9-10.8); MONOCYTES % (AUTO) 10.2 %; NEUTROPHILS % (AUTO) 68.9 %; PLT - PLATELET COUNT 241 10^3/uL (130-450); RED BLOOD COUNT 2.95 10^6/uL (4.20-5.40); RED CELL DISTRIBUTION WIDTH 13.3 % (12.0-15.0); WHITE BLOOD COUNT 10.2 x10^3/uL (4.8-10.8)
[2020-07-24 05:21] LABS: CALCIUM 8.1 mg/dL (8.5-10.3); CREATININE 1.3 mg/dL (0.4-1.0); POTASSIUM 3.5 mmol/L (3.5-5.0)
[2020-07-24] MEDS: GABAPENTIN 400 MG CAPSULE PO SCH ×3 (06:17→22:15)
[2020-07-24] MEDS: SODIUM CHLORIDE FLUSH 0.9% 10 ML SYRINGE IVP SCH ×3 (06:18→17:20)
--- NOTE | 2020-07-24 07:14 | PROVIDER PROGRESS NOTE ---
Assessment/Plan - Problem List (1) STEMI (ST elevation myocardial infarction) Assessment/Plan: The trend of patient's troponin was 27.9 > 288.4 > 435.4 > 2031.3 > 2837.4 > 2700 Heparin drip stopped this morning. Patient's Coumadin resumed today. Patient's INR this morning was 2.1. On metoprolol succinate 25 mg p.o. twice daily. On atorvastatin 80 mg p.o. every afternoon. On aspirin 81 mg and Plavix 75 mg p.o. daily. Patient will need to follow-up with cardiology upon discharge. Will discuss with senior writer before patient is discharged. (2) Heart failure Assessment/Plan: Lasix 20 mg IV daily. Metoprolol succinate 25 mg p.o. twice daily. On 2 L of oxygen via nasal cannula with oxygen saturation at 98%. Patient still sounds rhonchorous and has mild conversational dyspnea. Patient had a total of 1218 mils of fluid intake and an output of 4140 mils yesterday (3) Gram-positive cocci bacteremia Assessment/Plan: Patient's blood cultures on 07/18/2020 grew E faecalis and Staph epidermidis. Subsequent blood cultures of 07/20/20 have been no growth after 2 days. I suspect this could potentially be contaminant. Vancomycin was discontinued today. Cefepime ordered for pneumonia (4) Pneumonia Qualifiers: Pneumonia type: due to unspecified organism Laterality: left Lung location: lower lobe of lung Qualified Code(s): J18.9 - Pneumonia, unspecified organism Assessment/Plan: Patient was treated with azithromycin and Rocephin 07/18/20-07/19/20. She received Zosyn on 07/19/20 to 07/20/20 Vancomycin IV was discontinued today. She was on vancomycin for 2 daYS Patient's CXR continues to show airway opacities concerning for pneumonia Cefepime 1g IV q8hrs ordered. Will give Azithromycin 500mg X1 po for a total of 1.5g during this hospital stay (5) UTI (urinary tract infection) Qualifiers: Urinary tract infection type: acute cystitis Hematuria presence: without hematuria Qualified Code(s): N30.00 - Acute cystitis without hematuria Assessment/Plan: Urine culture grew E. coli. Cefepime ordered today 07/24/20 (7) Acute renal failure Qualifiers: Acute renal failure type: unspecified Qualified Code(s): N17.9 - Acute kidney failure, unspecified Assessment/Plan: Creatinine today is 1.3 Likely related to Heart failure. EF 30% Patient is on lasix 20mg IV daily (8) Atrial fibrillation Qualifiers: Atrial fibrillation type: paroxysmal Qualified Code(s): I48.0 - Paroxysmal atrial fibrillation Assessment/Plan: Metoprolol succinate 25 mg p.o. twice daily. Patient's INR today is 2.1. Coumadin resumed. Heparin drip discontinued. - Current Meds Current Meds: Current Medications Generic Name Dose Route Start Last Admin Trade Name Freq PRN Reason Stop Dose Admin Acetaminophen 650 mg 07/18/20 16:20 07/24/20 02:54 Acetaminophen 325 Mg Tablet PO 650 mg Q4HR PRN Administration Pain 1 to 4 Albuterol 2.5 mg 07/23/20 00:27 07/23/20 09:15 Albuterol Neb 2.5 Mg/3 Ml INH 2.5 mg RTQ4H PRN Administration Wheezing Aripiprazole 5 mg 07/22/20 21:00 07/23/20 21:10 Aripiprazole 5 Mg Tablet PO 5 mg QPM CHELSEA Administration Aspirin 81 mg 07/23/20 09:00 07/23/20 08:42 Aspirin Chew 81 Mg Tablet PO 81 mg DAILY CHELSEA Administration Atorvastatin Calcium 80 mg 07/22/20 21:00 07/23/20 21:15 Atorvastatin 40 Mg Tablet PO 80 mg QPM CHELSEA Administration Clopidogrel Bisulfate 75 mg 07/23/20 09:00 07/23/20 10:33 Clopidogrel 75 Mg Tablet PO 75 mg DAILY CHELSEA Administration Duloxetine HCl 60 mg 07/23/20 09:00 07/23/20 15:15 Duloxetine 30 Mg Capsule PO 60 mg DAILY CHELSEA Administration Famotidine 20 mg 07/18/20 21:00 07/23/20 21:15 Famotidine 20 Mg Tablet PO 20 mg BID CHELSEA Administration Gabapentin 800 mg 07/23/20 06:00 07/24/20 06:17 Gabapentin 400 Mg Capsule PO 800 mg TID CHELSEA Administration Vancomycin HCl 1 gm/ 250 mls @ 167 mls/hr 07/22/20 21:00 07/23/20 21:10 Vancomycin HCl 250 mg/ Sodium IV 167 mls/hr Chloride Q12H CHELSEA Administration Heparin Sodium/Dextrose 25,000 unit in 500 mls @ 26.64 mls/hr 07/23/20 02:00 07/23/20 22:46 Heparin Sodium/Dextrose IV 11 unit/kg/hr .[id number] CHELSEA 24.42 mls/hr Administration Protocol 12 UNIT/KG/HR Metoprolol Succinate 25 mg 07/23/20 21:00 07/23/20 21:16 Metoprolol Succinate 25 Mg Tablet PO 25 mg BID CHELSEA Administration Metoprolol Tartrate 5 mg 07/18/20 18:18 07/23/20 10:38 Metoprolol 5 Mg/5 Ml Vial IVP 5 mg Q6H PRN Administration Tachycardia Morphine Sulfate 1 mg 07/23/20 06:53 07/23/20 19:36 Morphine 2 Mg/Ml Carpuject IVP 1 mg Q3HR PRN Administration PAIN Multi-Ingredient Ointment 1 applic 07/20/20 04:36 07/21/20 00:41 Zinc Oxide 20% Oint 30 Gm Tube TOP 1 applic PRN PRN Administration Skin Care Ondansetron HCl 4 mg 07/18/20 16:20 07/22/20 13:02 Ondansetron 4 Mg/2 Ml Vial IVP 4 mg Q6HR PRN Administration Nausea / Vomiting Saccharomyces Boulardii 250 mg 07/19/20 08:00 07/23/20 18:18 Saccharomyces Boulardii 250 Mg Capsule PO 250 mg BIDWM CHELSEA Administration Sodium Chloride 10 ml 07/18/20 16:20 07/23/20 01:14 Sodium Chloride Flush 0.9% 10 Ml Syringe IVP 10 ml PRN PRN Administration NEEDED PER PROVIDER ORDERS Sodium Chloride 10 ml 07/18/20 17:00 07/24/20 06:18 Sodium Chloride Flush 0.9% 10 Ml Syringe IVP 10 ml 0100,0900,1700 [facility] Administration - Lab Result Fish Bone Diagrams: 07/24/20 04:35 07/24/20 04:35 - Additional Planning My Orders: My Active Orders 07/23/20 07:45 Echo Transthoracic Complete [ECHO] Routine 07/23/20 21:00 Metoprolol Succinate [Toprol Xl] 25 mg PO BID 07/24/20 06:00 Chest 1 View X-Ray [XR] Routine 07/25/20 05:00 BMP - BASIC METABOLIC PANEL [CHEM] DAILYLAB CBC - COMP BLD CT W/AUTO DIFF [HEME] DAILYLAB 07/26/20 05:00 BMP - BASIC METABOLIC PANEL [CHEM] DAILYLAB CBC - COMP BLD CT W/AUTO DIFF [HEME] DAILYLAB 07/27/20 05:00 BMP - BASIC METABOLIC PANEL [CHEM] DAILYLAB CBC - COMP BLD CT W/AUTO DIFF [HEME] DAILYLAB 07/28/20 05:00 BMP - BASIC METABOLIC PANEL [CHEM] DAILYLAB CBC - COMP BLD CT W/AUTO DIFF [HEME] DAILYLAB Subjective - Subjective Patient Reports: Other (Patient more alert and awake today. Has mildly labored breathing. 92% on room air. Denies chest pain, abd pain, nausea, vomiting, fever or chills.) Objective Vital Signs: Vital Signs - 24 hr 07/23/20 07/23/20 07/23/20 08:00 09:00 09:15 Temperature 36.8 C Heart Rate 97 Heart Rate [ 96 99 Monitoring electrodes] Respiratory 22 21 25 H Rate Blood Pressure Blood Pressure 119/74 125/70 [Left Brachial artery] O2 Saturation 96 98 07/23/20 07/23/20 07/23/20 10:00 10:38 11:00 Temperature Heart Rate Heart Rate [ 98 87 Monitoring electrodes] Respiratory 25 H 24 Rate Blood Pressure 121/64 Blood Pressure 104/84 H 107/62 [Left Brachial artery] O2 Saturation 92 96 07/23/20 07/23/20 07/23/20 11:08 12:00 13:00 Temperature 36.8 C Heart Rate Heart Rate [ 95 95 Monitoring electrodes] Respiratory 22 25 H Rate Blood Pressure 107/62 Blood Pressure 107/76 117/69 [Left Brachial artery] O2 Saturation 97 97 07/23/20 07/23/20 07/23/20 13:30 14:00 15:00 Temperature Heart Rate 93 Heart Rate [ 96 94 Monitoring electrodes] Respiratory 25 H 25 H 22 Rate Blood Pressure Blood Pressure 117/96 H 116/68 [Left Brachial artery] O2 Saturation 99 97 07/23/20 07/23/20 07/23/20 16:00 17:00 18:00 Temperature Heart Rate Heart Rate [ 90 93 93 Monitoring electrodes] Respiratory 22 24 19 Rate Blood Pressure Blood Pressure 102/82 H 104/56 L 113/53 L [Left Brachial artery] O2 Saturation 98 97 97 04/10/0707/23/20 07/23/20 18:26 19:00 20:00 Temperature 36.9 C Heart Rate Heart Rate [ 94 94 Monitoring electrodes] Respiratory 24 22 21 Rate Blood Pressure Blood Pressure 103/59 L 111/59 L [Left Brachial artery] O2 Saturation 94 94 92 07/23/20 07/23/20 07/23/20 21:00 22:00 23:00 Temperature Heart Rate Heart Rate [ 92 93 93 Monitoring electrodes] Respiratory 23 23 22 Rate Blood Pressure Blood Pressure 98/80 110/62 110/90 H [Left Brachial artery] O2 Saturation 98 98 98 07/24/20 07/24/20 07/24/20 00:00 01:00 02:00 Temperature 37.0 C Heart Rate Heart Rate [ 89 89 89 Monitoring electrodes] Respiratory 22 19 22 Rate Blood Pressure Blood Pressure 124/65 117/71 127/60 [Left Brachial artery] O2 Saturation 97 96 98 07/24/20 07/24/20 07/24/20 03:00 04:00 05:00 Temperature 36.7 C Heart Rate Heart Rate [ 87 88 86 Monitoring electrodes] Respiratory 23 23 30 H Rate Blood Pressure Blood Pressure 121/52 L 139/72 H 128/64 [Left Brachial artery] O2 Saturation 97 96 96 07/24/20 06:00 Temperature Heart Rate Heart Rate [ 82 Monitoring electrodes] Respiratory 19 Rate Blood Pressure Blood Pressure 133/73 H [Left Brachial artery] O2 Saturation 97 Oxygen O2 Source Nasal cannula I&O (Last 24 Hrs): Intake and Output Totals x24h 07/22/20 07/23/20 07/24/20 23:59 23:59 23:59 Intake Total 2375 968.612 400 Output Total 2850 4140 195 Balance -475 -3171.388 205 General: Alert, Oriented x3, Mild distress (respiratory distress) HEENT: PERRLA, EOMI Neck: Supple, No JVD Neuro: Alert, Non Focal, Oriented Times 3 Cardiovascular: Other (irregularly irregular) Respiratory: Chest non-tender, Rhonchi, Other (mildly labored breathing) Abdomen: Normal bowel sounds, Soft, No tenderness Extremities: No clubbing, Other (+1 edema) Skin: No rashes - Results Results: Laboratory Results WBC 10.2 x10^3/uL (4.8-10.8) 07/24/20 04:35 RBC 2.95 10^6/uL (4.20-5.40) L 07/24/20 04:35 Hgb 8.7 g/dL (12.0-16.0) L 07/24/20 04:35 Hct 27.6 % (37.0-47.0) L 07/24/20 04:35 MCV 93.6 fL (81.0-99.0) 07/24/20 04:35 MCH 29.5 pg (27.0-31.0) 07/24/20 04:35 MCHC 31.5 g/dL (32.0-36.0) L 07/24/20 04:35 RDW 13.3 % (12.0-15.0) 07/24/20 04:35 Plt Count 241 10^3/uL (130-450) 07/24/20 04:35 MPV 10.5 fL (7.9-10.8) 07/24/20 04:35 Neut # (Auto) 7.0 10^3/uL (1.5-6.6) H 07/24/20 04:35 Lymph # (Auto) 1.8 10^3/uL (1.5-3.5) 07/24/20 04:35 [place] # (Auto) 1.0 10^3/uL (0.0-1.0) 07/24/20 04:35 Eos # (Auto) 0.2 10^3/uL (0.0-0.7) 07/24/20 04:35 Baso # (Auto) 0.0 10^3/uL (0.0-0.1) 07/24/20 04:35 Absolute Nucleated RBC 0.00 x10^3/uL 07/24/20 04:35 Nucleated RBC % 0.0 /100WBC 07/24/20 04:35 PT 28.3 secs (9.9-12.6) H 07/23/20 05:02 INR 2.7 (0.8-1.2) H 07/23/20 05:02 Anti-Xa Level 0.7 U/mL (-0.7) 07/23/20 22:28 Sodium 139 mmol/L (135-145) 07/24/20 04:35 Potassium 3.5 mmol/L (3.5-5.0) 07/24/20 04:35 Chloride 105 mmol/L (101-111) 07/24/20 04:35 Carbon Dioxide 26 mmol/L (21-32) 07/24/20 04:35 Anion Gap 8.0 (6-13) 07/24/20 04:35 BUN 21 mg/dL (6-20) H 07/24/20 04:35 Creatinine 1.3 mg/dL (0.4-1.0) H 07/24/20 04:35 Estimated GFR (MDRD) 40 (>89) L 07/24/20 04:35 Glucose 149 mg/dL (70-100) H 07/24/20 04:35 POC Whole Bld Glucose 123 mg/dL (70 - 100) H 07/22/20 12:52 Estimat Average Glucose 137 mg/dL (70-100) H 07/18/20 13:10 Hemoglobin A1c % 6.4 % (4.27-6.07) H 07/18/20 13:10 Lactic Acid 0.7 mmol/L (0.5-2.2) 07/18/20 13:10 Calcium 8.1 mg/dL (8.5-10.3) L 07/24/20 04:35 Total Bilirubin 0.5 mg/dL (0.2-1.0) 07/18/20 13:10 AST 17 IU/L (10-42) 07/18/20 13:10 ALT 12 IU/L (10-60) 07/18/20 13:10 Alkaline Phosphatase 86 IU/L (42-121) 07/18/20 13:10 Troponin I High Sens 2719.9 ng/L (2.3-14.8) H* 07/23/20 16:56 Total Protein 7.5 g/dL (6.7-8.2) 07/18/20 13:10 Albumin 3.0 g/dL (3.2-5.5) L 07/18/20 13:10 Globulin 4.5 g/dL (2.1-4.2) H 07/18/20 13:10 Albumin/Globulin Ratio 0.7 (1.0-2.2) L 07/18/20 13:10 Lipase 16 U/L (22-51) L 07/18/20 13:10 Urine Color YELLOW 07/18/20 12:45 Urine Clarity SL. CLOUDY (CLEAR) 07/18/20 12:45 Urine pH 5.0 PH (5.0-7.5) 07/18/20 12:45 Ur Specific [place] 1.025 (1.002-1.030) 07/18/20 12:45 Urine Protein NEGATIVE mg/dL (NEGATIVE) 07/18/20 12:45 Urine Glucose (UA) NEGATIVE mg/dL (NEGATIVE) 07/18/20 12:45 Urine Ketones NEGATIVE mg/dL (NEGATIVE) 07/18/20 12:45 Urine Occult Blood NEGATIVE (NEGATIVE) 07/18/20 12:45 Urine Nitrite NEGATIVE (NEGATIVE) 07/18/20 12:45 Urine Bilirubin NEGATIVE (NEGATIVE) 07/18/20 12:45 Urine Urobilinogen 0.2 (NORMAL) E.U./dL (NORMAL) 07/18/20 12:45 Ur Leukocyte Esterase MODERATE (NEGATIVE) H 07/18/20 12:45 Urine RBC 0-5 /HPF (0-5) 07/18/20 12:45 Urine WBC >25 /HPF (0-5) H 07/18/20 12:45 Ur Squamous Epith Cells FEW Squamous (<= Few) 07/18/20 12:45 Urine Bacteria Few /HPF (None Seen) 07/18/20 12:45 Ur Microscopic Review INDICATED 07/18/20 12:45 Urine Culture Comments INDICATED 07/18/20 12:45 Nasal Adenovirus (PCR) NOT DETECTED 07/18/20 14:30 Nasal B. parapertussis DNA (PCR) NOT DETECTED 07/18/20 14:30 Nasal Coronavir 229E PCR NOT DETECTED 07/18/20 14:30 Nasal Coronavir HKU1 PCR NOT DETECTED 07/18/20 14:30 Nasal Coronavir NL63 PCR NOT DETECTED 07/18/20 14:30 Nasal Coronavir OC43 PCR NOT DETECTED 07/18/20 14:30 Nasal Enterovir/Rhinovir PCR NOT DETECTED 07/18/20 14:30 Nasal Influenza B PCR NOT DETECTED 07/18/20 14:30 Nasal Influenza A PCR NOT DETECTED 07/18/20 14:30 Nasal Parainfluen 1 PCR NOT DETECTED 07/18/20 14:30 Nasal Parainfluen 2 PCR NOT DETECTED 07/18/20 14:30 Nasal Parainfluen 3 PCR NOT DETECTED 07/18/20 14:30 Nasal Parainfluen 4 PCR NOT DETECTED 07/18/20 14:30 Nasal RSV (PCR) NOT DETECTED 07/18/20 14:30 Nasal Screen MRSA (PCR) NEGATIVE (NEGATIVE) 07/23/20 02:13 Nasal B.pertussis DNA PCR NOT DETECTED 07/18/20 14:30 Nasal C.pneumoniae (PCR) NOT DETECTED 07/18/20 14:30 Alexx Human Metapneumo PCR NOT DETECTED 07/18/20 14:30 Nasal M.pneumoniae (PCR) NOT DETECTED 07/18/20 14:30 Nasal SARS-CoV-2 (PCR) NOT DETECTED 07/18/20 14:30 Urine Opiates Screen NEGATIVE (NEGATIVE) 07/18/20 17:39 Ur Oxycodone Screen POSITIVE (NEGATIVE) H 07/18/20 17:39 Urine Methadone Screen NEGATIVE (NEGATIVE) 07/18/20 17:39 Ur Propoxyphene Screen NEGATIVE (NEGATIVE) 07/18/20 17:39 Ur Barbiturates Screen NEGATIVE (NEGATIVE) 07/18/20 17:39 Ur Tricyclics Screen POSITIVE (NEGATIVE) H 07/18/20 17:39 Ur Phencyclidine Scrn NEGATIVE (NEGATIVE) 07/18/20 17:39 Ur Amphetamine Screen NEGATIVE (NEGATIVE) 07/18/20 17:39 U Methamphetamines Scrn NEGATIVE (NEGATIVE) 07/18/20 17:39 U Benzodiazepines Scrn NEGATIVE (NEGATIVE) 07/18/20 17:39 Urine Cocaine Screen NEGATIVE (NEGATIVE) 07/18/20 17:39 U Cannabinoids Screen NEGATIVE (NEGATIVE) 07/18/20 17:39 Sepsis Event Note (H) - Evaluation Current Stage of Sepsis: Resolved ABX Reporting Has patient been on IV antibiotics over the past 48 hours?: Yes
[2020-07-24 08:22] LABS: INR 2.1 (0.8-1.2); PT - PROTHROMBIN TIME 22.4 secs (9.9-12.6)
[2020-07-24] MEDS: SACCHAROMYCES BOULARDII 250 MG CAPSULE PO SCH ×2 (08:25→17:20)
[2020-07-24] MEDS: ASPIRIN CHEW 81 MG TABLET PO SCH (08:25)
[2020-07-24] MEDS: CLOPIDOGREL 75 MG TABLET PO SCH (08:25)
[2020-07-24] MEDS: DULoxetine 30 MG CAPSULE PO SCH (08:26)
[2020-07-24] MEDS: FAMOTIDINE 20 MG TABLET PO SCH ×2 (08:26→21:17)
[2020-07-24] MEDS: METOPROLOL SUCCINATE 25 MG TABLET PO SCH ×2 (08:27→21:16)
[2020-07-24 08:41] LABS: VANCOMYCIN,TROUGH 40.3 ug/mL (10.0-20.0)
[2020-07-24] MEDS ORDERED: FUROSEMIDE 40 MG/4 ML VIAL IVP SCH (09:00)
[2020-07-24] MEDS: WARFARIN 1 MG TABLET PO SCH (09:05)
--- NOTE | 2020-07-24 09:42 | XRAY Report ---
PROCEDURE: Chest 1 View X-Ray INDICATIONS: dyspnea, hypoxia, edema, TECHNIQUE: One view of the chest was acquired. COMPARISON: 07/23/2020 FINDINGS: Surgical changes and devices: Right upper extremity PICC with distal tip projecting near the mid SVC. . Lungs and pleura: No pneumothorax. Persistent diffuse interstitial prominence. Mild vascular congesti on. Persistent patchy airspace disease of the right upper lung zone and left lung base. Interval deve lopment of hazy opacities obscuring the left costophrenic angle compatible with small pleural effusio n. Mediastinum: Mediastinal contours appear stable. Heart size is borderline enlarged. Bones and chest wall: No suspicious bony lesions. Overlying soft tissues appear unremarkable. IMPRESSION: 1. Persistent bilateral airspace disease/pneumonia with findings compatible with mild residual pulmon sophia edema. Improved lung aeration. 2. Interval development of small left pleural effusion. Reviewed by: Herman Pitt MD on 07/24/2020 9:41 AM PDT Approved by: Herman Pitt MD on 07/24/2020 9:41 AM PDT Station ID: [id number]
[2020-07-24] MEDS ORDERED: FUROSEMIDE 20 MG/2 ML VIAL IVP SCH (10:00)
[2020-07-24] MEDS ORDERED: AZITHROMYCIN 250 MG TABLET PO STA (10:40)
[2020-07-24] MEDS ORDERED: cefTRIAXone 1 GM in SODIUM CHLORIDE 0.9% MINIBAG 100 ML IV SCH (11:00)
[2020-07-24] MEDS: CEFEPIME 1 GM in SODIUM CHLORIDE 0.9% MINIBAG 100 ML IV SCH ×2 (11:25→18:45)
[2020-07-24] MEDS: ARIPiprazole 5 MG TABLET PO SCH (21:17)
[2020-07-24] MEDS: ATORVASTATIN 40 MG TABLET PO SCH (21:17)
[2020-07-25] MEDS: SODIUM CHLORIDE FLUSH 0.9% 10 ML SYRINGE IVP SCH ×3 (00:59→16:17)
[2020-07-25] MEDS: CEFEPIME 1 GM in SODIUM CHLORIDE 0.9% MINIBAG 100 ML IV SCH ×3 (03:03→18:39)
[2020-07-25] MEDS: SODIUM CHLORIDE FLUSH 0.9% 10 ML SYRINGE IVP PRN ×2 (03:06→04:28)
[2020-07-25] MEDS: ACETAMINOPHEN 325 MG TABLET PO PRN ×4 (04:43→21:14)
[2020-07-25] MEDS: GABAPENTIN 400 MG CAPSULE PO SCH ×3 (04:54→21:19)
[2020-07-25 05:20] LABS: BASOPHILS # (AUTO) 0.1 10^3/uL (0.0-0.1); BASOPHILS % (AUTO) 0.7 %; EOSINOPHILS # (AUTO) 0.6 10^3/uL (0.0-0.7); EOSINOPHILS % (AUTO) 6.7 %; HGB - HEMOGLOBIN 8.4 g/dL (12.0-16.0); LYMPHOCYTES # (AUTO) 1.6 10^3/uL (1.5-3.5); LYMPHOCYTES % (AUTO) 18.2 %; MEAN CORPUSCULAR HEMOGLOBIN 28.8 pg (27.0-31.0); MEAN CORPUSCULAR VOLUME 95.9 fL (81.0-99.0); MEAN PLATELET VOLUME 10.8 fL (7.9-10.8); MONOCYTES # (AUTO) 0.9 10^3/uL (0.0-1.0); NEUTROPHILS # (AUTO) 5.7 10^3/uL (1.5-6.6); NEUTROPHILS % (AUTO) 63.8 %; PLT - PLATELET COUNT 290 10^3/uL (130-450); RED BLOOD COUNT 2.92 10^6/uL (4.20-5.40); RED CELL DISTRIBUTION WIDTH 13.2 % (12.0-15.0); WHITE BLOOD COUNT 8.9 x10^3/uL (4.8-10.8)
[2020-07-25 05:21] LABS: INR 2.1 (0.8-1.2); PT - PROTHROMBIN TIME 22.7 secs (9.9-12.6)
[2020-07-25 05:24] LABS: CALCIUM 8.3 mg/dL (8.5-10.3); CREATININE 1.2 mg/dL (0.4-1.0); POTASSIUM 3.5 mmol/L (3.5-5.0)
--- NOTE | 2020-07-25 07:33 | PROVIDER PROGRESS NOTE ---
Assessment/Plan - Problem List (1) STEMI (ST elevation myocardial infarction) Assessment/Plan: Patient's Coumadin was resumed 07/24/20. Patient's INR this morning was 2.1. On metoprolol succinate 25 mg p.o. twice daily. On atorvastatin 80 mg p.o. every afternoon. On aspirin 81 mg and Plavix 75 mg p.o. daily. I spoke with Dr. Cox relocation director on-call at [place] who recommended continued diuresing. Then repeating a limited echocardiogram. If the patient's ejection fraction is improved then no further work-up is warranted. If there is no improvement or if there is worsening in the ejection fraction then to do a stress test. However he highlighted that the stress test results or findings will mainly be informational given that the patient is DNR and maintains that she does not want any cardiac intervention. He also recommended resuming the patient's lisinopril 10 mg daily which was done. Lasix was increased to 40 mg IV daily. (2) Ischemic cardiomyopathy Assessment/Plan: On metoprolol succinate 25 mg p.o. twice daily. On atorvastatin 80 mg p.o. every afternoon. On aspirin 81 mg and Plavix 75 mg p.o. daily. I spoke with Dr. Cox relocation director on-call at [place] who recommended continued diuresing. Then repeating a limited echocardiogram. If the patient's ejection fraction is improved then no further work-up is warranted. If there is no improvement or if there is worsening in the ejection fraction then to do a stress test. However he highlighted that the stress test results or findings will mainly be informational given that the patient is DNR and maintains that she does not want any cardiac intervention. He also recommended resuming the patient's lisinopril 10 mg daily which was done. Lasix was increased to 40 mg IV daily. (3) Heart failure Assessment/Plan: Lasix increased to 40 mg IV daily today. Patient still sounds rhonchorous. Patient had 1970 fluid intake and 1303 output yesterday for a net balance of 667 Continue metoprolol succinate 25 mg p.o. twice daily. On 2 L of oxygen via nasal cannula. (4) Gram-positive cocci bacteremia Assessment/Plan: Patient's blood cultures on 07/18/2020 grew E faecalis and Staph epidermidis. Subsequent blood cultures of 07/20/20 have been no growth after 2 days. I suspect this could potentially be contaminant. Vancomycin was discontinued today. Cefepime ordered for pneumonia (5) Pneumonia Qualifiers: Pneumonia type: due to unspecified organism Laterality: left Lung location: lower lobe of lung Qualified Code(s): J18.9 - Pneumonia, unspecified organism Assessment/Plan: Patient was treated with azithromycin and Rocephin 07/18/20-07/19/20. She received Zosyn on 07/19/20 to 07/20/20 Vancomycin IV was discontinued today. She was on vancomycin for 2 daYS Patient's CXR continues to show airway opacities concerning for pneumonia Cefepime 1g IV q8hrs ordered Day #2. (6) UTI (urinary tract infection) Qualifiers: Urinary tract infection type: acute cystitis Hematuria presence: without hematuria Qualified Code(s): N30.00 - Acute cystitis without hematuria (8) Acute renal failure Qualifiers: Acute renal failure type: unspecified Qualified Code(s): N17.9 - Acute kidney failure, unspecified Assessment/Plan: Creatinine today is 1.2. Likely related to Heart failure/ Isachemic Cardiomyopathy. EF 30% Continue diuresing. Lasix increased to 40 mg IV daily today. (9) Atrial fibrillation Qualifiers: Atrial fibrillation type: paroxysmal Qualified Code(s): I48.0 - Paroxysmal atrial fibrillation Assessment/Plan: Metoprolol succinate 25 mg p.o. twice daily. Patient's INR today is 2.1. Coumadin resumed. Heparin drip discontinued. - Current Meds Current Meds: Current Medications Generic Name Dose Route Start Last Admin Trade Name Freq PRN Reason Stop Dose Admin Acetaminophen 650 mg 07/18/20 16:20 07/25/20 04:43 Acetaminophen 325 Mg Tablet PO 650 mg Q4HR PRN Administration Pain 1 to 4 Albuterol 2.5 mg 07/23/20 00:27 07/23/20 09:15 Albuterol Neb 2.5 Mg/3 Ml INH 2.5 mg RTQ4H PRN Administration Wheezing Aripiprazole 5 mg 07/22/20 21:00 07/24/20 21:17 Aripiprazole 5 Mg Tablet PO 5 mg QPM CHELSEA Administration Aspirin 81 mg 07/23/20 09:00 07/24/20 08:25 Aspirin Chew 81 Mg Tablet PO 81 mg DAILY CHELSEA Administration Atorvastatin Calcium 80 mg 07/22/20 21:00 07/24/20 21:17 Atorvastatin 40 Mg Tablet PO 80 mg QPM CHELSEA Administration Clopidogrel Bisulfate 75 mg 07/23/20 09:00 07/24/20 08:25 Clopidogrel 75 Mg Tablet PO 75 mg DAILY CHELSEA Administration Duloxetine HCl 60 mg 07/23/20 09:00 07/24/20 08:26 Duloxetine 30 Mg Capsule PO 60 mg DAILY CHELSEA Administration Famotidine 20 mg 07/18/20 21:00 07/24/20 21:17 Famotidine 20 Mg Tablet PO 20 mg BID CHELSEA Administration Furosemide 20 mg 07/24/20 10:00 07/24/20 11:15 Furosemide 20 Mg/2 Ml Vial IVP 20 mg DAILY CHELSEA Administration Gabapentin 800 mg 07/23/20 06:00 07/25/20 04:54 Gabapentin 400 Mg Capsule PO 800 mg TID CHELSEA Administration Cefepime HCl 1 gm/ Sodium 100 mls @ 200 mls/hr 07/24/20 11:00 07/25/20 03:45 Chloride IV Infused Q8H CHELSEA Infusion Metoprolol Succinate 25 mg 07/23/20 21:00 07/24/20 21:16 Metoprolol Succinate 25 Mg Tablet PO 25 mg BID CHELSEA Administration Metoprolol Tartrate 5 mg 07/18/20 18:18 07/23/20 10:38 Metoprolol 5 Mg/5 Ml Vial IVP 5 mg Q6H PRN Administration Tachycardia Morphine Sulfate 1 mg 07/23/20 06:53 07/23/20 19:36 Morphine 2 Mg/Ml Carpuject IVP 1 mg Q3HR PRN Administration PAIN Multi-Ingredient Ointment 1 applic 07/20/20 04:36 07/21/20 00:41 Zinc Oxide 20% Oint 30 Gm Tube TOP 1 applic PRN PRN Administration Skin Care Ondansetron HCl 4 mg 07/18/20 16:20 07/22/20 13:02 Ondansetron 4 Mg/2 Ml Vial IVP 4 mg Q6HR PRN Administration Nausea / Vomiting Saccharomyces Boulardii 250 mg 07/19/20 08:00 07/24/20 17:20 Saccharomyces Boulardii 250 Mg Capsule PO 250 mg BIDWM CHELSEA Administration Sodium Chloride 10 ml 07/18/20 16:20 07/25/20 04:28 Sodium Chloride Flush 0.9% 10 Ml Syringe IVP 30 ml PRN PRN Administration NEEDED PER PROVIDER ORDERS Sodium Chloride 10 ml 07/18/20 17:00 07/25/20 00:59 Sodium Chloride Flush 0.9% 10 Ml Syringe IVP 10 ml 0100,0900,1700 CHELSEA Administration Warfarin Sodium 3 mg 07/24/20 09:30 07/24/20 09:05 Warfarin 1 Mg Tablet PO 3 mg CHELSEA Administration - Lab Result Fish Bone Diagrams: 07/25/20 04:25 07/25/20 04:25 - Additional Planning My Orders: My Active Orders 07/24/20 09:30 Warfarin [Coumadin] 3 mg PO WETH 07/24/20 10:00 FUROSEMIDE INJ 20mg VIAL [LASIX INJ 20mg VIAL] 20 mg IVP DAILY 07/24/20 11:00 Cefepime [Maxipime] 1 gm Sodium Chloride 0.9% Minibag [Normal Saline 0.9% Minibag] 100 ml IV Q8H 07/26/20 05:00 BMP - BASIC METABOLIC PANEL [CHEM] DAILYLAB CBC - COMP BLD CT W/AUTO DIFF [HEME] DAILYLAB PT WITH INR [COAG] DAILYLAB 07/27/20 05:00 BMP - BASIC METABOLIC PANEL [CHEM] DAILYLAB CBC - COMP BLD CT W/AUTO DIFF [HEME] DAILYLAB 07/27/20 14:00 Warfarin [Coumadin] 1.5 mg PO SUMOSA 07/28/20 05:00 BMP - BASIC METABOLIC PANEL [CHEM] DAILYLAB CBC - COMP BLD CT W/AUTO DIFF [HEME] DAILYLAB Subjective - Subjective Patient Reports: Other (Awake and alert. She complains of feeling mildly dyspne ic. Her breathing continues to be mildly labored. She denies chest pain, abdominal pain, nausea, vomiting, fever or chills.) Objective Vital Signs: Vital Signs - 24 hr 07/24/20 07/24/20 07/24/20 08:00 09:00 10:00 Temperature Heart Rate [ Activity] Heart Rate [ 84 80 79 Monitoring electrodes] Heart Rate [ Sitting] Heart Rate [ Supine] Respiratory 18 20 18 Rate Blood Pressure [Activity] Blood Pressure 124/52 L 116/47 L 118/59 L [Left Brachial artery] Blood Pressure [Sitting] Blood Pressure [Supine] O2 Saturation 97 98 97 07/24/20 07/24/20 07/24/20 11:00 11:35 11:40 Temperature Heart Rate [ 87 79 Activity] Heart Rate [ 80 Monitoring electrodes] Heart Rate [ 87 Sitting] Heart Rate [ 78 Supine] Respiratory 20 Rate Blood Pressure 136/73 H 128/66 [Activity] Blood Pressure 122/62 [Left Brachial artery] Blood Pressure 140/77 H 130/77 [Sitting] Blood Pressure 119/66 [Supine] O2 Saturation 99 07/24/20 07/24/20 07/24/20 12:00 13:00 14:00 Temperature Heart Rate [ Activity] Heart Rate [ 82 81 85 Monitoring electrodes] Heart Rate [ Sitting] Heart Rate [ Supine] Respiratory 16 20 20 Rate Blood Pressure [Activity] Blood Pressure 128/66 129/60 122/46 L [Left Brachial artery] Blood Pressure [Sitting] Blood Pressure [Supine] O2 Saturation 98 97 97 07/24/20 07/24/20 07/24/20 15:00 16:00 16:59 Temperature 36.6 C Heart Rate [ Activity] Heart Rate [ 86 88 82 Monitoring electrodes] Heart Rate [ Sitting] Heart Rate [ Supine] Respiratory 22 24 22 Rate Blood Pressure [Activity] Blood Pressure 116/59 L 113/51 L 126/58 L [Left Brachial artery] Blood Pressure [Sitting] Blood Pressure [Supine] O2 Saturation 96 98 97 07/24/20 07/24/20 07/24/20 18:00 19:00 20:00 Temperature 36.4 C L Heart Rate [ Activity] Heart Rate [ 84 81 80 Monitoring electrodes] Heart Rate [ Sitting] Heart Rate [ Supine] Respiratory 25 H 21 18 Rate Blood Pressure [Activity] Blood Pressure 127/49 L 125/56 L 132/73 H [Left Brachial artery] Blood Pressure [Sitting] Blood Pressure [Supine] O2 Saturation 96 98 96 07/25/20 07/25/20 02:11 04:32 Temperature 36.8 C 36.3 C L Heart Rate [ Activity] Heart Rate [ 77 73 Monitoring electrodes] Heart Rate [ Sitting] Heart Rate [ Supine] Respiratory 20 20 Rate Blood Pressure [Activity] Blood Pressure 117/47 L 124/53 L [Left Brachial artery] Blood Pressure [Sitting] Blood Pressure [Supine] O2 Saturation 97 99 Oxygen O2 Source Room air I&O (Last 24 Hrs): Intake and Output Totals x24h 04/06/21 04/07/21 04/08/21 23:59 23:59 23:59 Intake Total 4444.921 1075.000 100 Output Total 4140 1303 850 Balance -2921.388 667.000 -750 General: Alert, Oriented x3, Cooperative, Mild distress HEENT: PERRLA, EOMI Neck: Supple, No JVD Neuro: Alert, Non Focal, Oriented Times 3 Cardiovascular: No murmurs, Other (Irregularly irregular) Respiratory: Chest non-tender, Rhonchi Abdomen: Normal bowel sounds, Soft, No tenderness Extremities: Other (1+ lower extremity edema) - Results Results: Laboratory Results WBC 8.9 x10^3/uL (4.8-10.8) 07/25/20 04:25 RBC 2.92 10^6/uL (4.20-5.40) L 07/25/20 04:25 Hgb 8.4 g/dL (12.0-16.0) L 07/25/20 04:25 Hct 28.0 % (37.0-47.0) L 07/25/20 04:25 MCV 95.9 fL (81.0-99.0) 07/25/20 04:25 MCH 28.8 pg (27.0-31.0) 07/25/20 04:25 MCHC 30.0 g/dL (32.0-36.0) L 07/25/20 04:25 RDW 13.2 % (12.0-15.0) 07/25/20 04:25 Plt Count 290 10^3/uL (130-450) 07/25/20 04:25 MPV 10.8 fL (7.9-10.8) 07/25/20 04:25 Neut # (Auto) 5.7 10^3/uL (1.5-6.6) 07/25/20 04:25 Lymph # (Auto) 1.6 10^3/uL (1.5-3.5) 07/25/20 04:25 [place] # (Auto) 0.9 10^3/uL (0.0-1.0) 07/25/20 04:25 Eos # (Auto) 0.6 10^3/uL (0.0-0.7) 07/25/20 04:25 Baso # (Auto) 0.1 10^3/uL (0.0-0.1) 07/25/20 04:25 Absolute Nucleated RBC 0.00 x10^3/uL 07/25/20 04:25 Nucleated RBC % 0.0 /100WBC 07/25/20 04:25 PT 22.7 secs (9.9-12.6) H 07/25/20 04:25 INR 2.1 (0.8-1.2) H 07/25/20 04:25 Anti-Xa Level 0.7 U/mL (-0.7) 07/23/20 22:28 Sodium 142 mmol/L (135-145) 07/25/20 04:25 Potassium 3.5 mmol/L (3.5-5.0) 07/25/20 04:25 Chloride 106 mmol/L (101-111) 07/25/20 04:25 Carbon Dioxide 28 mmol/L (21-32) 07/25/20 04:25 Anion Gap 8.0 (6-13) 07/25/20 04:25 BUN 24 mg/dL (6-20) H 07/25/20 04:25 Creatinine 1.2 mg/dL (0.4-1.0) H 07/25/20 04:25 Estimated GFR (MDRD) 44 (>89) L 07/25/20 04:25 Glucose 113 mg/dL (70-100) H 07/25/20 04:25 POC Whole Bld Glucose 123 mg/dL (70 - 100) H 07/22/20 12:52 Estimat Average Glucose 137 mg/dL (70-100) H 07/18/20 13:10 Hemoglobin A1c % 6.4 % (4.27-6.07) H 07/18/20 13:10 Lactic Acid 0.7 mmol/L (0.5-2.2) 07/18/20 13:10 Calcium 8.3 mg/dL (8.5-10.3) L 07/25/20 04:25 Total Bilirubin 0.5 mg/dL (0.2-1.0) 07/18/20 13:10 AST 17 IU/L (10-42) 07/18/20 13:10 ALT 12 IU/L (10-60) 07/18/20 13:10 Alkaline Phosphatase 86 IU/L (42-121) 07/18/20 13:10 Troponin I High Sens 2719.9 ng/L (2.3-14.8) H* 07/23/20 16:56 Total Protein 7.5 g/dL (6.7-8.2) 07/18/20 13:10 Albumin 3.0 g/dL (3.2-5.5) L 07/18/20 13:10 Globulin 4.5 g/dL (2.1-4.2) H 07/18/20 13:10 Albumin/Globulin Ratio 0.7 (1.0-2.2) L 07/18/20 13:10 Lipase 16 U/L (22-51) L 07/18/20 13:10 Urine Color YELLOW 07/18/20 12:45 Urine Clarity SL. CLOUDY (CLEAR) 07/18/20 12:45 Urine pH 5.0 PH (5.0-7.5) 07/18/20 12:45 Ur Specific [place] 1.025 (1.002-1.030) 07/18/20 12:45 Urine Protein NEGATIVE mg/dL (NEGATIVE) 07/18/20 12:45 Urine Glucose (UA) NEGATIVE mg/dL (NEGATIVE) 07/18/20 12:45 Urine Ketones NEGATIVE mg/dL (NEGATIVE) 07/18/20 12:45 Urine Occult Blood NEGATIVE (NEGATIVE) 07/18/20 12:45 Urine Nitrite NEGATIVE (NEGATIVE) 07/18/20 12:45 Urine Bilirubin NEGATIVE (NEGATIVE) 07/18/20 12:45 Urine Urobilinogen 0.2 (NORMAL) E.U./dL (NORMAL) 07/18/20 12:45 Ur Leukocyte Esterase MODERATE (NEGATIVE) H 07/18/20 12:45 Urine RBC 0-5 /HPF (0-5) 07/18/20 12:45 Urine WBC >25 /HPF (0-5) H 07/18/20 12:45 Ur Squamous Epith Cells FEW Squamous (<= Few) 07/18/20 12:45 Urine Bacteria Few /HPF (None Seen) 07/18/20 12:45 Ur Microscopic Review INDICATED 07/18/20 12:45 Urine Culture Comments INDICATED 07/18/20 12:45 Nasal Adenovirus (PCR) NOT DETECTED 07/18/20 14:30 Nasal B. parapertussis DNA (PCR) NOT DETECTED 07/18/20 14:30 Nasal Coronavir 229E PCR NOT DETECTED 07/18/20 14:30 Nasal Coronavir HKU1 PCR NOT DETECTED 07/18/20 14:30 Nasal Coronavir NL63 PCR NOT DETECTED 07/18/20 14:30 Nasal Coronavir OC43 PCR NOT DETECTED 07/18/20 14:30 Nasal Enterovir/Rhinovir PCR NOT DETECTED 07/18/20 14:30 Nasal Influenza B PCR NOT DETECTED 07/18/20 14:30 Nasal Influenza A PCR NOT DETECTED 07/18/20 14:30 Nasal Parainfluen 1 PCR NOT DETECTED 07/18/20 14:30 Nasal Parainfluen 2 PCR NOT DETECTED 07/18/20 14:30 Nasal Parainfluen 3 PCR NOT DETECTED 07/18/20 14:30 Nasal Parainfluen 4 PCR NOT DETECTED 07/18/20 14:30 Nasal RSV (PCR) NOT DETECTED 07/18/20 14:30 Nasal Screen MRSA (PCR) NEGATIVE (NEGATIVE) 07/23/20 02:13 Nasal B.pertussis DNA PCR NOT DETECTED 07/18/20 14:30 Nasal C.pneumoniae (PCR) NOT DETECTED 07/18/20 14:30 Alexx Human Metapneumo PCR NOT DETECTED 07/18/20 14:30 Nasal M.pneumoniae (PCR) NOT DETECTED 07/18/20 14:30 Nasal SARS-CoV-2 (PCR) NOT DETECTED 07/18/20 14:30 Last Dose Date UNK 07/24/20 08:00 Last Dose Time UNK 07/24/20 08:00 Vancomycin Trough 40.3 ug/mL (10.0-20.0) H* 07/24/20 08:00 Urine Opiates Screen NEGATIVE (NEGATIVE) 07/18/20 17:39 Ur Oxycodone Screen POSITIVE (NEGATIVE) H 07/18/20 17:39 Urine Methadone Screen NEGATIVE (NEGATIVE) 07/18/20 17:39 Ur Propoxyphene Screen NEGATIVE (NEGATIVE) 07/18/20 17:39 Ur Barbiturates Screen NEGATIVE (NEGATIVE) 07/18/20 17:39 Ur Tricyclics Screen POSITIVE (NEGATIVE) H 07/18/20 17:39 Ur Phencyclidine Scrn NEGATIVE (NEGATIVE) 07/18/20 17:39 Ur Amphetamine Screen NEGATIVE (NEGATIVE) 07/18/20 17:39 U Methamphetamines Scrn NEGATIVE (NEGATIVE) 07/18/20 17:39 U Benzodiazepines Scrn NEGATIVE (NEGATIVE) 07/18/20 17:39 Urine Cocaine Screen NEGATIVE (NEGATIVE) 07/18/20 17:39 U Cannabinoids Screen NEGATIVE (NEGATIVE) 07/18/20 17:39 Sepsis Event Note (H) - Evaluation Current Stage of Sepsis: Resolved ABX Reporting Has patient been on IV antibiotics over the past 48 hours?: Yes
[2020-07-25] MEDS ORDERED: FUROSEMIDE 20 MG/2 ML VIAL IVP STA (08:56)
[2020-07-25] MEDS: CLOPIDOGREL 75 MG TABLET PO SCH (09:16)
[2020-07-25] MEDS: DULoxetine 30 MG CAPSULE PO SCH (09:16)
[2020-07-25] MEDS: SACCHAROMYCES BOULARDII 250 MG CAPSULE PO SCH ×2 (09:16→16:16)
[2020-07-25] MEDS: FAMOTIDINE 20 MG TABLET PO SCH ×2 (09:16→21:17)
[2020-07-25] MEDS: ASPIRIN CHEW 81 MG TABLET PO SCH (09:16)
[2020-07-25] MEDS: METOPROLOL SUCCINATE 25 MG TABLET PO SCH ×2 (09:16→21:18)
[2020-07-25] MEDS: lisinopriL 5 MG TABLET PO SCH (09:19)
[2020-07-25] MEDS: WARFARIN 1 MG TABLET PO SCH (09:35)
[2020-07-25] MEDS ORDERED: FUROSEMIDE 20 MG/2 ML VIAL IVP SCH (10:00)
[2020-07-25] MEDS: polyethylene glycoL 3350 17 GM PACKET PO SCH (10:22)
[2020-07-25] MEDS ORDERED: FUROSEMIDE 40 MG/4 ML VIAL IVP SCH (14:00)
[2020-07-25] MEDS: ARIPiprazole 5 MG TABLET PO SCH (21:17)
[2020-07-25] MEDS: ATORVASTATIN 40 MG TABLET PO SCH (21:18)
[2020-07-25] MEDS: ZINC OXIDE 20% OINT 30 GM TUBE TOP PRN (21:24)
[2020-07-26] MEDS: CEFEPIME 1 GM in SODIUM CHLORIDE 0.9% MINIBAG 100 ML IV SCH ×3 (03:06→18:51)
[2020-07-26] MEDS: SODIUM CHLORIDE FLUSH 0.9% 10 ML SYRINGE IVP SCH ×3 (03:07→16:41)
[2020-07-26 05:14] LABS: BASOPHILS % (AUTO) 0.4 %; EOSINOPHILS # (AUTO) 0.7 10^3/uL (0.0-0.7); EOSINOPHILS % (AUTO) 7.6 %; HCT - HEMATOCRIT 28.4 % (37.0-47.0); HGB - HEMOGLOBIN 8.8 g/dL (12.0-16.0); LYMPHOCYTES # (AUTO) 1.3 10^3/uL (1.5-3.5); LYMPHOCYTES % (AUTO) 14.6 %; MEAN CORPUSCULAR HEMOGLOBIN 29.5 pg (27.0-31.0); MEAN CORPUSCULAR VOLUME 95.3 fL (81.0-99.0); MEAN PLATELET VOLUME 10.1 fL (7.9-10.8); MONOCYTES # (AUTO) 0.8 10^3/uL (0.0-1.0); MONOCYTES % (AUTO) 8.8 %; NEUTROPHILS # (AUTO) 6.1 10^3/uL (1.5-6.6); NEUTROPHILS % (AUTO) 68.2 %; PLT - PLATELET COUNT 353 10^3/uL (130-450); RED BLOOD COUNT 2.98 10^6/uL (4.20-5.40); RED CELL DISTRIBUTION WIDTH 13.4 % (12.0-15.0); WHITE BLOOD COUNT 8.9 x10^3/uL (4.8-10.8)
[2020-07-26 05:26] LABS: CALCIUM 8.4 mg/dL (8.5-10.3); CREATININE 1.3 mg/dL (0.4-1.0); POTASSIUM 3.6 mmol/L (3.5-5.0)
[2020-07-26 05:48] LABS: INR 2.5 (0.8-1.2); PT - PROTHROMBIN TIME 26.7 secs (9.9-12.6)
[2020-07-26] MEDS: GABAPENTIN 400 MG CAPSULE PO SCH ×3 (06:13→21:25)
--- NOTE | 2020-07-26 07:16 | PROVIDER PROGRESS NOTE ---
Assessment/Plan - Problem List (1) STEMI (ST elevation myocardial infarction) Assessment/Plan: Patient's Coumadin was resumed 07/24/20. Patient's INR this morning was 2.5. On metoprolol succinate 25 mg p.o. twice daily. On atorvastatin 80 mg p.o. every afternoon. On aspirin 81 mg and Plavix 75 mg p.o. daily. Continue lasix 40mg IV daily Plan for repeat limited 2D echo on Wednesday07/29/20 Plan for discharge to SNF on 07/29/20 (2) Ischemic cardiomyopathy Assessment/Plan: Patient's Coumadin was resumed 07/24/20. Patient's INR this morning was 2.5. On metoprolol succinate 25 mg p.o. twice daily. On atorvastatin 80 mg p.o. every afternoon. On aspirin 81 mg and Plavix 75 mg p.o. daily. Continue lasix 40mg IV daily Plan for repeat limited 2D echo on Wednesday07/29/20 Plan for discharge to SNF on 07/29/20 (3) Heart failure Assessment/Plan: Continue lasix 40mg IV daily Repeated limited 2D echo on 07/29/20 (4) Gram-positive cocci bacteremia Assessment/Plan: Patient's blood cultures on 07/18/2020 grew E faecalis and Staph epidermidis. Subsequent blood cultures of 07/20/20 have been no growth after 2 days. I suspect this could potentially be contaminant. Vancomycin was discontinued. Cefepime ordered for pneumonia (5) Pneumonia Qualifiers: Pneumonia type: due to unspecified organism Laterality: left Lung location: lower lobe of lung Qualified Code(s): J18.9 - Pneumonia, unspecified organism Assessment/Plan: Patient was treated with azithromycin and Rocephin 07/18/20-07/19/20. She received Zosyn on 07/19/20 to 07/20/20 Vancomycin IV was discontinued today. She was on vancomycin for 2 daYS Patient's CXR continues to show airway opacities concerning for pneumonia Cefepime 1g IV q8hrs ordered Day #3. (6) UTI (urinary tract infection) Qualifiers: Urinary tract infection type: acute cystitis Hematuria presence: without hematuria Qualified Code(s): N30.00 - Acute cystitis without hematuria (8) Acute renal failure Qualifiers: Acute renal failure type: unspecified Qualified Code(s): N17.9 - Acute kidney failure, unspecified Assessment/Plan: Creatinine today is 1.3. Likely related to Heart failure/ Isachemic Cardiomyopathy. EF 30% Continue diuresing. Lasix increased to 40 mg IV daily today. (9) Atrial fibrillation Qualifiers: Atrial fibrillation type: paroxysmal Qualified Code(s): I48.0 - Paroxysmal atrial fibrillation Assessment/Plan: Metoprolol succinate 25 mg p.o. twice daily. On coumadin. Patient's INR today is 2.5. - Current Meds Current Meds: Current Medications Generic Name Dose Route Start Last Admin Trade Name Freq PRN Reason Stop Dose Admin Acetaminophen 650 mg 07/18/20 16:20 07/25/20 21:14 Acetaminophen 325 Mg Tablet PO 650 mg Q4HR PRN Administration Pain 1 to 4 Albuterol 2.5 mg 07/23/20 00:27 07/23/20 09:15 Albuterol Neb 2.5 Mg/3 Ml INH 2.5 mg RTQ4H PRN Administration Wheezing Aripiprazole 5 mg 07/22/20 21:00 07/25/20 21:17 Aripiprazole 5 Mg Tablet PO 5 mg QPM CHELSEA Administration Aspirin 81 mg 07/23/20 09:00 07/25/20 09:16 Aspirin Chew 81 Mg Tablet PO 81 mg DAILY CHELSEA Administration Atorvastatin Calcium 80 mg 07/22/20 21:00 07/25/20 21:18 Atorvastatin 40 Mg Tablet PO 80 mg QPM CHELSEA Administration Clopidogrel Bisulfate 75 mg 07/23/20 09:00 07/25/20 09:16 Clopidogrel 75 Mg Tablet PO 75 mg DAILY CHELSEA Administration Duloxetine HCl 60 mg 07/23/20 09:00 07/25/20 09:16 Duloxetine 30 Mg Capsule PO 60 mg DAILY CHELSEA Administration Famotidine 20 mg 07/18/20 21:00 07/25/20 21:17 Famotidine 20 Mg Tablet PO 20 mg BID CHELSEA Administration Gabapentin 800 mg 07/23/20 06:00 07/26/20 06:13 Gabapentin 400 Mg Capsule PO 800 mg TID CHELSEA Administration Cefepime HCl 1 gm/ Sodium 100 mls @ 200 mls/hr 07/24/20 11:00 07/26/20 03:36 Chloride IV Infused Q8H CHELSEA Infusion Lisinopril 10 mg 07/25/20 09:00 07/25/20 09:19 Lisinopril 5 Mg Tablet PO 10 mg DAILY CHELSEA Administration Metoprolol Succinate 25 mg 07/23/20 21:00 07/25/20 21:18 Metoprolol Succinate 25 Mg Tablet PO 25 mg BID CHELSEA Administration Metoprolol Tartrate 5 mg 07/18/20 18:18 07/23/20 10:38 Metoprolol 5 Mg/5 Ml Vial IVP 5 mg Q6H PRN Administration Tachycardia Morphine Sulfate 1 mg 07/23/20 06:53 07/23/20 19:36 Morphine 2 Mg/Ml Carpuject IVP 1 mg Q3HR PRN Administration PAIN Multi-Ingredient Ointment 1 applic 07/20/20 04:36 07/25/20 21:24 Zinc Oxide 20% Oint 30 Gm Tube TOP 1 applic PRN PRN Administration Skin Care Ondansetron HCl 4 mg 07/18/20 16:20 07/22/20 13:02 Ondansetron 4 Mg/2 Ml Vial IVP 4 mg Q6HR PRN Administration Nausea / Vomiting Polyethylene Glycol 17 gm 07/25/20 10:00 07/25/20 10:22 Polyethylene Glycol 3350 17 Gm Packet PO 17 gm DAILY CHELSEA Administration Saccharomyces Boulardii 250 mg 07/19/20 08:00 07/25/20 16:16 Saccharomyces Boulardii 250 Mg Capsule PO 250 mg BIDWM CHELSEA Administration Sodium Chloride 10 ml 07/18/20 16:20 07/25/20 04:28 Sodium Chloride Flush 0.9% 10 Ml Syringe IVP 30 ml PRN PRN Administration NEEDED PER PROVIDER ORDERS Sodium Chloride 10 ml 07/18/20 17:00 07/26/20 03:07 Sodium Chloride Flush 0.9% 10 Ml Syringe IVP 10 ml 0100,0900,1700 CHELSEA Administration Warfarin Sodium 3 mg 07/24/20 09:30 07/25/20 09:35 Warfarin 1 Mg Tablet PO 3 mg WE CHELSEA Administration - Lab Result Fish Bone Diagrams: 07/26/20 04:50 07/26/20 04:50 - Additional Planning My Orders: My Active Orders 07/25/20 09:00 lisinopriL [Zestril] 10 mg PO DAILY 07/26/20 09:00 FUROSEMIDE INJ 40mg VIAL [LASIX INJ 40 mg VIAL] 40 mg IVP DAILY 07/27/20 05:00 BMP - BASIC METABOLIC PANEL [CHEM] DAILYLAB CBC - COMP BLD CT W/AUTO DIFF [HEME] DAILYLAB 07/27/20 14:00 Warfarin [Coumadin] 1.5 mg PO SUMOSA 07/28/20 05:00 BMP - BASIC METABOLIC PANEL [CHEM] DAILYLAB CBC - COMP BLD CT W/AUTO DIFF [HEME] DAILYLAB Subjective - Subjective Patient Reports: Other (No change in clinical status compared to yesterday. Still reports mildly dyspneic. Breathing continues to be labored. She denies chest pain, abdominal pain, nausea, vomiting, fever or chills. Blood in stool reported yesterday. No recurrence. Patient reports being constipated.) Objective Vital Signs: Vital Signs - 24 hr 07/25/20 07/25/20 07/25/20 07:40 11:29 15:40 Temperature 36.3 C L 36.4 C L 37.0 C Heart Rate [ 73 76 Monitoring electrodes] Heart Rate [ 66 Radial] Respiratory 20 20 20 Rate Blood Pressure 128/58 L 144/59 H [Left Brachial artery] Blood Pressure 126/62 [Right Radial artery] O2 Saturation 96 98 98 07/25/20 07/25/20 07/26/20 20:27 23:29 04:39 Temperature 36.3 C L 36.7 C 36.7 C Heart Rate [ Monitoring electrodes] Heart Rate [ 80 80 72 Radial] Respiratory 20 18 18 Rate Blood Pressure [Left Brachial artery] Blood Pressure 132/50 H 139/57 H 131/67 H [Right Radial artery] O2 Saturation 99 96 98 Oxygen O2 Source Nasal cannula I&O (Last 24 Hrs): Intake and Output Totals x24h 07/24/20 07/25/20 07/26/20 23:59 23:59 23:59 Intake Total 3335.478 0582 625 Output Total 1303 5015 Balance 667.000 -2937 625 General: Alert, Oriented x3, Mild distress (dyspnea) HEENT: PERRLA, EOMI Neck: Supple, No JVD Neuro: Alert, Non Focal, Oriented Times 3 Cardiovascular: Other (irregularly irregular rhythm. 2/6 blowing murmur) Respiratory: Chest non-tender, Rhonchi (mildly labored breathing) Abdomen: Normal bowel sounds, Soft, No tenderness Extremities: No clubbing, No cyanosis, No edema Skin: No rashes, No breakdown, No significant lesion - Results Results: Laboratory Results WBC 8.9 x10^3/uL (4.8-10.8) 07/26/20 04:50 RBC 2.98 10^6/uL (4.20-5.40) L 07/26/20 04:50 Hgb 8.8 g/dL (12.0-16.0) L 07/26/20 04:50 Hct 28.4 % (37.0-47.0) L 07/26/20 04:50 MCV 95.3 fL (81.0-99.0) 07/26/20 04:50 MCH 29.5 pg (27.0-31.0) 07/26/20 04:50 MCHC 31.0 g/dL (32.0-36.0) L 07/26/20 04:50 RDW 13.4 % (12.0-15.0) 07/26/20 04:50 Plt Count 353 10^3/uL (130-450) 07/26/20 04:50 MPV 10.1 fL (7.9-10.8) 07/26/20 04:50 Neut # (Auto) 6.1 10^3/uL (1.5-6.6) 07/26/20 04:50 Lymph # (Auto) 1.3 10^3/uL (1.5-3.5) L 07/26/20 04:50 [place] # (Auto) 0.8 10^3/uL (0.0-1.0) 07/26/20 04:50 Eos # (Auto) 0.7 10^3/uL (0.0-0.7) 07/26/20 04:50 Baso # (Auto) 0.0 10^3/uL (0.0-0.1) 07/26/20 04:50 Absolute Nucleated RBC 0.00 x10^3/uL 07/26/20 04:50 Nucleated RBC % 0.0 /100WBC 07/26/20 04:50 PT 26.7 secs (9.9-12.6) H 07/26/20 05:40 INR 2.5 (0.8-1.2) H 07/26/20 05:40 Anti-Xa Level 0.7 U/mL (-0.7) 07/23/20 22:28 Sodium 143 mmol/L (135-145) 07/26/20 04:50 Potassium 3.6 mmol/L (3.5-5.0) 07/26/20 04:50 Chloride 104 mmol/L (101-111) 07/26/20 04:50 Carbon Dioxide 30 mmol/L (21-32) 07/26/20 04:50 Anion Gap 9.0 (6-13) 07/26/20 04:50 BUN 25 mg/dL (6-20) H 07/26/20 04:50 Creatinine 1.3 mg/dL (0.4-1.0) H 07/26/20 04:50 Estimated GFR (MDRD) 40 (>89) L 07/26/20 04:50 Glucose 118 mg/dL (70-100) H 07/26/20 04:50 POC Whole Bld Glucose 123 mg/dL (70 - 100) H 07/22/20 12:52 Estimat Average Glucose 137 mg/dL (70-100) H 07/18/20 13:10 Hemoglobin A1c % 6.4 % (4.27-6.07) H 07/18/20 13:10 Lactic Acid 0.7 mmol/L (0.5-2.2) 07/18/20 13:10 Calcium 8.4 mg/dL (8.5-10.3) L 07/26/20 04:50 Total Bilirubin 0.5 mg/dL (0.2-1.0) 07/18/20 13:10 AST 17 IU/L (10-42) 07/18/20 13:10 ALT 12 IU/L (10-60) 07/18/20 13:10 Alkaline Phosphatase 86 IU/L (42-121) 07/18/20 13:10 Troponin I High Sens 2719.9 ng/L (2.3-14.8) H* 07/23/20 16:56 Total Protein 7.5 g/dL (6.7-8.2) 07/18/20 13:10 Albumin 3.0 g/dL (3.2-5.5) L 07/18/20 13:10 Globulin 4.5 g/dL (2.1-4.2) H 07/18/20 13:10 Albumin/Globulin Ratio 0.7 (1.0-2.2) L 07/18/20 13:10 Lipase 16 U/L (22-51) L 07/18/20 13:10 Urine Color YELLOW 07/18/20 12:45 Urine Clarity SL. CLOUDY (CLEAR) 07/18/20 12:45 Urine pH 5.0 PH (5.0-7.5) 07/18/20 12:45 Ur Specific [place] 1.025 (1.002-1.030) 07/18/20 12:45 Urine Protein NEGATIVE mg/dL (NEGATIVE) 07/18/20 12:45 Urine Glucose (UA) NEGATIVE mg/dL (NEGATIVE) 07/18/20 12:45 Urine Ketones NEGATIVE mg/dL (NEGATIVE) 07/18/20 12:45 Urine Occult Blood NEGATIVE (NEGATIVE) 07/18/20 12:45 Urine Nitrite NEGATIVE (NEGATIVE) 07/18/20 12:45 Urine Bilirubin NEGATIVE (NEGATIVE) 07/18/20 12:45 Urine Urobilinogen 0.2 (NORMAL) E.U./dL (NORMAL) 07/18/20 12:45 Ur Leukocyte Esterase MODERATE (NEGATIVE) H 07/18/20 12:45 Urine RBC 0-5 /HPF (0-5) 07/18/20 12:45 Urine WBC >25 /HPF (0-5) H 07/18/20 12:45 Ur Squamous Epith Cells FEW Squamous (<= Few) 07/18/20 12:45 Urine Bacteria Few /HPF (None Seen) 07/18/20 12:45 Ur Microscopic Review INDICATED 07/18/20 12:45 Urine Culture Comments INDICATED 07/18/20 12:45 Nasal Adenovirus (PCR) NOT DETECTED 07/18/20 14:30 Nasal B. parapertussis DNA (PCR) NOT DETECTED 07/18/20 14:30 Nasal Coronavir 229E PCR NOT DETECTED 07/18/20 14:30 Nasal Coronavir HKU1 PCR NOT DETECTED 07/18/20 14:30 Nasal Coronavir NL63 PCR NOT DETECTED 07/18/20 14:30 Nasal Coronavir OC43 PCR NOT DETECTED 07/18/20 14:30 Nasal Enterovir/Rhinovir PCR NOT DETECTED 07/18/20 14:30 Nasal Influenza B PCR NOT DETECTED 07/18/20 14:30 Nasal Influenza A PCR NOT DETECTED 07/18/20 14:30 Nasal Parainfluen 1 PCR NOT DETECTED 07/18/20 14:30 Nasal Parainfluen 2 PCR NOT DETECTED 07/18/20 14:30 Nasal Parainfluen 3 PCR NOT DETECTED 07/18/20 14:30 Nasal Parainfluen 4 PCR NOT DETECTED 07/18/20 14:30 Nasal RSV (PCR) NOT DETECTED 07/18/20 14:30 Nasal Screen MRSA (PCR) NEGATIVE (NEGATIVE) 07/23/20 02:13 Nasal B.pertussis DNA PCR NOT DETECTED 07/18/20 14:30 Nasal C.pneumoniae (PCR) NOT DETECTED 07/18/20 14:30 Alexx Human Metapneumo PCR NOT DETECTED 07/18/20 14:30 Nasal M.pneumoniae (PCR) NOT DETECTED 07/18/20 14:30 Nasal SARS-CoV-2 (PCR) NOT DETECTED 07/18/20 14:30 Last Dose Date UNK 07/24/20 08:00 Last Dose Time UNK 07/24/20 08:00 Vancomycin Trough 40.3 ug/mL (10.0-20.0) H* 07/24/20 08:00 Urine Opiates Screen NEGATIVE (NEGATIVE) 07/18/20 17:39 Ur Oxycodone Screen POSITIVE (NEGATIVE) H 07/18/20 17:39 Urine Methadone Screen NEGATIVE (NEGATIVE) 07/18/20 17:39 Ur Propoxyphene Screen NEGATIVE (NEGATIVE) 07/18/20 17:39 Ur Barbiturates Screen NEGATIVE (NEGATIVE) 07/18/20 17:39 Ur Tricyclics Screen POSITIVE (NEGATIVE) H 07/18/20 17:39 Ur Phencyclidine Scrn NEGATIVE (NEGATIVE) 07/18/20 17:39 Ur Amphetamine Screen NEGATIVE (NEGATIVE) 07/18/20 17:39 U Methamphetamines Scrn NEGATIVE (NEGATIVE) 07/18/20 17:39 U Benzodiazepines Scrn NEGATIVE (NEGATIVE) 07/18/20 17:39 Urine Cocaine Screen NEGATIVE (NEGATIVE) 07/18/20 17:39 U Cannabinoids Screen NEGATIVE (NEGATIVE) 07/18/20 17:39 Sepsis Event Note (H) - Evaluation Current Stage of Sepsis: Resolved ABX Reporting Has patient been on IV antibiotics over the past 48 hours?: Yes
[2020-07-26] MEDS: ACETAMINOPHEN 325 MG TABLET PO PRN ×2 (10:01→19:34)
[2020-07-26] MEDS: FAMOTIDINE 20 MG TABLET PO SCH ×2 (10:02→21:24)
[2020-07-26] MEDS: ASPIRIN CHEW 81 MG TABLET PO SCH (10:02)
[2020-07-26] MEDS: CLOPIDOGREL 75 MG TABLET PO SCH (10:02)
[2020-07-26] MEDS: lisinopriL 5 MG TABLET PO SCH (10:03)
[2020-07-26] MEDS: METOPROLOL SUCCINATE 25 MG TABLET PO SCH ×2 (10:03→21:25)
[2020-07-26] MEDS: DULoxetine 30 MG CAPSULE PO SCH (10:03)
[2020-07-26] MEDS: polyethylene glycoL 3350 17 GM PACKET PO SCH (10:06)
[2020-07-26] MEDS: FUROSEMIDE 40 MG/4 ML VIAL IVP SCH (10:06)
[2020-07-26] MEDS: SACCHAROMYCES BOULARDII 250 MG CAPSULE PO SCH ×2 (11:16→16:40)
[2020-07-26] MEDS: SODIUM CHLORIDE FLUSH 0.9% 10 ML SYRINGE IVP PRN ×2 (18:52→19:47)
[2020-07-26] MEDS: ARIPiprazole 5 MG TABLET PO SCH (21:25)
[2020-07-26] MEDS: ATORVASTATIN 40 MG TABLET PO SCH (21:25)
[2020-07-27] MEDS: SODIUM CHLORIDE FLUSH 0.9% 10 ML SYRINGE IVP SCH ×3 (03:28→16:06)
[2020-07-27] MEDS: CEFEPIME 1 GM in SODIUM CHLORIDE 0.9% MINIBAG 100 ML IV SCH ×3 (03:28→20:14)
[2020-07-27] MEDS: GABAPENTIN 400 MG CAPSULE PO SCH ×3 (06:04→20:30)
[2020-07-27 06:52] LABS: BASOPHILS % (AUTO) 0.5 %; EOSINOPHILS # (AUTO) 0.7 10^3/uL (0.0-0.7); EOSINOPHILS % (AUTO) 7.9 %; HCT - HEMATOCRIT 27.9 % (37.0-47.0); HGB - HEMOGLOBIN 8.7 g/dL (12.0-16.0); LYMPHOCYTES # (AUTO) 1.5 10^3/uL (1.5-3.5); LYMPHOCYTES % (AUTO) 17.7 %; MEAN CORPUSCULAR HEMOGLOBIN 29.5 pg (27.0-31.0); MEAN CORPUSCULAR HGB CONC 31.2 g/dL (32.0-36.0); MEAN CORPUSCULAR VOLUME 94.6 fL (81.0-99.0); MEAN PLATELET VOLUME 9.9 fL (7.9-10.8); MONOCYTES # (AUTO) 0.8 10^3/uL (0.0-1.0); MONOCYTES % (AUTO) 9.6 %; NEUTROPHILS # (AUTO) 5.3 10^3/uL (1.5-6.6); NEUTROPHILS % (AUTO) 63.9 %; PLT - PLATELET COUNT 364 10^3/uL (130-450); RED BLOOD COUNT 2.95 10^6/uL (4.20-5.40); RED CELL DISTRIBUTION WIDTH 13.4 % (12.0-15.0); WHITE BLOOD COUNT 8.3 x10^3/uL (4.8-10.8)
[2020-07-27 07:35] LABS: CALCIUM 8.4 mg/dL (8.5-10.3); CREATININE 1.1 mg/dL (0.4-1.0); POTASSIUM 3.9 mmol/L (3.5-5.0)
--- NOTE | 2020-07-27 07:45 | PROVIDER PROGRESS NOTE ---
Assessment/Plan - Problem List (1) STEMI (ST elevation myocardial infarction) Assessment/Plan: On metoprolol succinate 25 mg p.o. twice daily. On atorvastatin 80 mg p.o. every afternoon. On aspirin 81 mg and Plavix 75 mg p.o. daily. Continue lasix 40mg IV daily Plan for repeat limited 2D echo on Wednesday07/29/20 Plan for discharge to SNF on 07/29/20 Clinically the patient appears do be doing better today. She asked about her recovery and expressed her wish/anticipation about eventually going home. I discussed with the patient, her son and daughter at bedside explaining that her physical condition would likely not improve to pre-STEMI level. Her current EF is 30% with extensive severe hypokinesis. I highlighted that she will need more care than she previously did and that she should consider a long-term care facility. She is not safe discharge home on her own. She is not open to the possibility of long-term care. It appears her family will not be able to provide the level of care she needs at home either. (2) Ischemic cardiomyopathy Assessment/Plan: On metoprolol succinate 25 mg p.o. twice daily. On atorvastatin 80 mg p.o. every afternoon. On aspirin 81 mg and Plavix 75 mg p.o. daily. Continue lasix 40mg IV daily Plan for repeat limited 2D echo on Wednesday07/29/20 Plan for discharge to SNF on 07/29/20 (3) Heart failure Assessment/Plan: Continue metoprolol, lisinopril and lasix 40mg IV daily Repeated limited 2D echo on 07/29/20 (4) Gram-positive cocci bacteremia Assessment/Plan: Patient's blood cultures on 07/18/2020 grew E faecalis and Staph epidermidis. Subsequent blood cultures of 07/20/20 have been no growth after 2 days. I suspect this could potentially be contaminant. Vancomycin was discontinued. Cefepime ordered for pneumonia Will discontinue Cefepime on 07/28/20 (5) Pneumonia Qualifiers: Pneumonia type: due to unspecified organism Laterality: left Lung location: lower lobe of lung Qualified Code(s): J18.9 - Pneumonia, unspecified organism Assessment/Plan: Patient was treated with azithromycin and Rocephin 07/18/20-07/19/20. She received Zosyn on 07/19/20 to 07/20/20 Vancomycin IV was discontinued today. She was on vancomycin for 2 daYS Patient's CXR continues to show airway opacities concerning for pneumonia Cefepime 1g IV q8hrs ordered Day #4. (6) UTI (urinary tract infection) Qualifiers: Urinary tract infection type: acute cystitis Hematuria presence: without hematuria Qualified Code(s): N30.00 - Acute cystitis without hematuria (8) Acute renal failure Qualifiers: Acute renal failure type: unspecified Qualified Code(s): N17.9 - Acute kidney failure, unspecified Assessment/Plan: Creatinine today is 1.1. Likely related to Heart failure/ Isachemic Cardiomyopathy. EF 30% Continue diuresing. Lasix increased to 40 mg IV daily today. (9) Atrial fibrillation Qualifiers: Atrial fibrillation type: paroxysmal Qualified Code(s): I48.0 - Paroxysmal atrial fibrillation Assessment/Plan: Continue metoprolol succinate on Coumadin. - Current Meds Current Meds: Current Medications Generic Name Dose Route Start Last Admin Trade Name Freq PRN Reason Stop Dose Admin Acetaminophen 650 mg 07/18/20 16:20 07/26/20 19:34 Acetaminophen 325 Mg Tablet PO 650 mg Q4HR PRN Administration Pain 1 to 4 Albuterol 2.5 mg 07/23/20 00:27 07/23/20 09:15 Albuterol Neb 2.5 Mg/3 Ml INH 2.5 mg RTQ4H PRN Administration Wheezing Aripiprazole 5 mg 07/22/20 21:00 07/26/20 21:25 Aripiprazole 5 Mg Tablet PO 5 mg QPM CHELSEA Administration Aspirin 81 mg 07/23/20 09:00 07/26/20 10:02 Aspirin Chew 81 Mg Tablet PO 81 mg DAILY CHELSEA Administration Atorvastatin Calcium 80 mg 07/22/20 21:00 07/26/20 21:25 Atorvastatin 40 Mg Tablet PO 80 mg QPM CHELSEA Administration Clopidogrel Bisulfate 75 mg 07/23/20 09:00 07/26/20 10:02 Clopidogrel 75 Mg Tablet PO 75 mg DAILY CHELSEA Administration Duloxetine HCl 60 mg 07/23/20 09:00 07/26/20 10:03 Duloxetine 30 Mg Capsule PO 60 mg DAILY CHELSEA Administration Famotidine 20 mg 07/18/20 21:00 07/26/20 21:24 Famotidine 20 Mg Tablet PO 20 mg BID CHELSEA Administration Furosemide 40 mg 07/26/20 09:00 07/26/20 10:06 Furosemide 40 Mg/4 Ml Vial IVP 40 mg DAILY CHELSEA Administration Gabapentin 800 mg 07/23/20 06:00 07/27/20 06:04 Gabapentin 400 Mg Capsule PO 800 mg TID CHELSEA Administration Cefepime HCl 1 gm/ Sodium 100 mls @ 200 mls/hr 07/24/20 11:00 07/27/20 03:58 Chloride IV Infused Q8H CHELSEA Infusion Lisinopril 10 mg 07/25/20 09:00 07/26/20 10:03 Lisinopril 5 Mg Tablet PO 10 mg DAILY CHELSEA Administration Metoprolol Succinate 25 mg 07/23/20 21:00 07/26/20 21:25 Metoprolol Succinate 25 Mg Tablet PO 25 mg BID CHELSEA Administration Metoprolol Tartrate 5 mg 07/18/20 18:18 07/23/20 10:38 Metoprolol 5 Mg/5 Ml Vial IVP 5 mg Q6H PRN Administration Tachycardia Morphine Sulfate 1 mg 07/23/20 06:53 07/23/20 19:36 Morphine 2 Mg/Ml Carpuject IVP 1 mg Q3HR PRN Administration PAIN Multi-Ingredient Ointment 1 applic 07/20/20 04:36 07/25/20 21:24 Zinc Oxide 20% Oint 30 Gm Tube TOP 1 applic PRN PRN Administration Skin Care Ondansetron HCl 4 mg 07/18/20 16:20 07/22/20 13:02 Ondansetron 4 Mg/2 Ml Vial IVP 4 mg Q6HR PRN Administration Nausea / Vomiting Polyethylene Glycol 17 gm 07/25/20 10:00 07/26/20 10:06 Polyethylene Glycol 3350 17 Gm Packet PO 17 gm DAILY CHELSEA Administration Saccharomyces Boulardii 250 mg 07/19/20 08:00 07/26/20 16:40 Saccharomyces Boulardii 250 Mg Capsule PO 250 mg BIDWM CHELSEA Administration Sodium Chloride 10 ml 07/18/20 16:20 07/26/20 19:47 Sodium Chloride Flush 0.9% 10 Ml Syringe IVP 10 ml PRN PRN Administration NEEDED PER PROVIDER ORDERS Sodium Chloride 10 ml 07/18/20 17:00 07/27/20 03:28 Sodium Chloride Flush 0.9% 10 Ml Syringe IVP 10 ml 0100,0900,1700 CHELSEA Administration Warfarin Sodium 3 mg 07/24/20 09:30 07/25/20 09:35 Warfarin 1 Mg Tablet PO 3 mg TUWE CHELSEA Administration - Lab Result Fish Bone Diagrams: 07/27/20 06:45 07/27/20 06:45 - Additional Planning My Orders: My Active Orders 07/26/20 09:00 FUROSEMIDE INJ 40mg VIAL [LASIX INJ 40 mg VIAL] 40 mg IVP DAILY 07/27/20 08:00 Multivitamin W/Minerals [Theragran M] 1 tab PO DAILYWM 07/27/20 14:00 Warfarin [Coumadin] 1.5 mg PO SUMOSA 07/28/20 05:00 BMP - BASIC METABOLIC PANEL [CHEM] DAILYLAB CBC - COMP BLD CT W/AUTO DIFF [HEME] DAILYLAB Subjective - Subjective Patient Reports: Other (Patient was sitting up in bedside chair visiting with daughter at time of visit. She is breathing better today. She denies chest pain, abdominal pain, nausea, vomiting, fever or chills. There is no appreciable lower extremity edema.) Objective Vital Signs: Vital Signs - 24 hr 07/26/20 07/26/20 07/26/20 08:00 15:42 20:15 Temperature 36.7 C 36.4 C L Heart Rate 81 Heart Rate [ 71 Monitoring electrodes] Heart Rate [ 79 Radial] Respiratory 18 20 20 Rate Blood Pressure 145/77 H 143/53 H [Left Brachial artery] Blood Pressure [Right Radial artery] O2 Saturation 100 99 07/26/20 07/26/20 07/26/20 21:04 21:46 21:52 Temperature 37.2 C Heart Rate Heart Rate [ 81 87 86 Monitoring electrodes] Heart Rate [ Radial] Respiratory 20 Rate Blood Pressure 127/41 L 140/48 H 108/54 L [Left Brachial artery] Blood Pressure [Right Radial artery] O2 Saturation 98 07/26/20 07/27/20 22:35 04:54 Temperature 36.7 C 36.5 C Heart Rate Heart Rate [ 85 Monitoring electrodes] Heart Rate [ 72 Radial] Respiratory 18 18 Rate Blood Pressure 141/52 H [Left Brachial artery] Blood Pressure 133/43 H [Right Radial artery] O2 Saturation 97 99 Oxygen O2 Source Nasal cannula I&O (Last 24 Hrs): Intake and Output Totals x24h 07/25/20 07/26/20 07/27/20 23:59 23:59 23:59 Intake Total 4108 1725 100 Output Total 2292 0520 793 [facility] -[phone] General: Alert, Oriented x3, No acute distress HEENT: PERRLA, EOMI Neck: Supple, No JVD Neuro: Alert, Non Focal, Oriented Times 3 Cardiovascular: Other (Irregularly irregular, regular rate 3/6 blowing murmur) Respiratory: Chest non-tender, No respiratory distress, Other (mildly rhonchous) Abdomen: Normal bowel sounds, Soft, No tenderness Skin: No rashes, No breakdown, No significant lesion - Results Results: Laboratory Results WBC 8.3 x10^3/uL (4.8-10.8) 07/27/20 06:45 RBC 2.95 10^6/uL (4.20-5.40) L 07/27/20 06:45 Hgb 8.7 g/dL (12.0-16.0) L 07/27/20 06:45 Hct 27.9 % (37.0-47.0) L 07/27/20 06:45 MCV 94.6 fL (81.0-99.0) 07/27/20 06:45 MCH 29.5 pg (27.0-31.0) 07/27/20 06:45 MCHC 31.2 g/dL (32.0-36.0) L 07/27/20 06:45 RDW 13.4 % (12.0-15.0) 07/27/20 06:45 Plt Count 364 10^3/uL (130-450) 07/27/20 06:45 MPV 9.9 fL (7.9-10.8) 07/27/20 06:45 Neut # (Auto) 5.3 10^3/uL (1.5-6.6) 07/27/20 06:45 Lymph # (Auto) 1.5 10^3/uL (1.5-3.5) 07/27/20 06:45 Mobile # (Auto) 0.8 10^3/uL (0.0-1.0) 07/27/20 06:45 Eos # (Auto) 0.7 10^3/uL (0.0-0.7) 07/27/20 06:45 Baso # (Auto) 0.0 10^3/uL (0.0-0.1) 07/27/20 06:45 Absolute Nucleated RBC 0.00 x10^3/uL 07/27/20 06:45 Nucleated RBC % 0.0 /100WBC 07/27/20 06:45 PT 26.7 secs (9.9-12.6) H 07/26/20 05:40 INR 2.5 (0.8-1.2) H 07/26/20 05:40 Anti-Xa Level 0.7 U/mL (-0.7) 07/23/20 22:28 Sodium 143 mmol/L (135-145) 07/27/20 06:45 Potassium 3.9 mmol/L (3.5-5.0) 07/27/20 06:45 Chloride 102 mmol/L (101-111) 07/27/20 06:45 Carbon Dioxide 34 mmol/L (21-32) H 07/27/20 06:45 Anion Gap 7.0 (6-13) 07/27/20 06:45 BUN 23 mg/dL (6-20) H 07/27/20 06:45 Creatinine 1.1 mg/dL (0.4-1.0) H 07/27/20 06:45 Estimated GFR (MDRD) 49 (>89) L 07/27/20 06:45 Glucose 120 mg/dL (70-100) H 07/27/20 06:45 POC Whole Bld Glucose 123 mg/dL (70 - 100) H 07/22/20 12:52 Estimat Average Glucose 137 mg/dL (70-100) H 07/18/20 13:10 Hemoglobin A1c % 6.4 % (4.27-6.07) H 07/18/20 13:10 Lactic Acid 0.7 mmol/L (0.5-2.2) 07/18/20 13:10 Calcium 8.4 mg/dL (8.5-10.3) L 07/27/20 06:45 Total Bilirubin 0.5 mg/dL (0.2-1.0) 07/18/20 13:10 AST 17 IU/L (10-42) 07/18/20 13:10 ALT 12 IU/L (10-60) 07/18/20 13:10 Alkaline Phosphatase 86 IU/L (42-121) 07/18/20 13:10 Troponin I High Sens 2719.9 ng/L (2.3-14.8) H* 07/23/20 16:56 Total Protein 7.5 g/dL (6.7-8.2) 07/18/20 13:10 Albumin 3.0 g/dL (3.2-5.5) L 07/18/20 13:10 Globulin 4.5 g/dL (2.1-4.2) H 07/18/20 13:10 Albumin/Globulin Ratio 0.7 (1.0-2.2) L 07/18/20 13:10 Lipase 16 U/L (22-51) L 07/18/20 13:10 Urine Color YELLOW 07/18/20 12:45 Urine Clarity SL. CLOUDY (CLEAR) 07/18/20 12:45 Urine pH 5.0 PH (5.0-7.5) 07/18/20 12:45 Ur Specific [place] 1.025 (1.002-1.030) 07/18/20 12:45 Urine Protein NEGATIVE mg/dL (NEGATIVE) 07/18/20 12:45 Urine Glucose (UA) NEGATIVE mg/dL (NEGATIVE) 07/18/20 12:45 Urine Ketones NEGATIVE mg/dL (NEGATIVE) 07/18/20 12:45 Urine Occult Blood NEGATIVE (NEGATIVE) 07/18/20 12:45 Urine Nitrite NEGATIVE (NEGATIVE) 07/18/20 12:45 Urine Bilirubin NEGATIVE (NEGATIVE) 07/18/20 12:45 Urine Urobilinogen 0.2 (NORMAL) E.U./dL (NORMAL) 07/18/20 12:45 Ur Leukocyte Esterase MODERATE (NEGATIVE) H 07/18/20 12:45 Urine RBC 0-5 /HPF (0-5) 07/18/20 12:45 Urine WBC >25 /HPF (0-5) H 07/18/20 12:45 Ur Squamous Epith Cells FEW Squamous (<= Few) 07/18/20 12:45 Urine Bacteria Few /HPF (None Seen) 07/18/20 12:45 Ur Microscopic Review INDICATED 07/18/20 12:45 Urine Culture Comments INDICATED 07/18/20 12:45 Nasal Adenovirus (PCR) NOT DETECTED 07/18/20 14:30 Nasal B. parapertussis DNA (PCR) NOT DETECTED 07/18/20 14:30 Nasal Coronavir 229E PCR NOT DETECTED 07/18/20 14:30 Nasal Coronavir HKU1 PCR NOT DETECTED 07/18/20 14:30 Nasal Coronavir NL63 PCR NOT DETECTED 07/18/20 14:30 Nasal Coronavir OC43 PCR NOT DETECTED 07/18/20 14:30 Nasal Enterovir/Rhinovir PCR NOT DETECTED 07/18/20 14:30 Nasal Influenza B PCR NOT DETECTED 07/18/20 14:30 Nasal Influenza A PCR NOT DETECTED 07/18/20 14:30 Nasal Parainfluen 1 PCR NOT DETECTED 07/18/20 14:30 Nasal Parainfluen 2 PCR NOT DETECTED 07/18/20 14:30 Nasal Parainfluen 3 PCR NOT DETECTED 07/18/20 14:30 Nasal Parainfluen 4 PCR NOT DETECTED 07/18/20 14:30 Nasal RSV (PCR) NOT DETECTED 07/18/20 14:30 Nasal Screen MRSA (PCR) NEGATIVE (NEGATIVE) 07/23/20 02:13 Nasal B.pertussis DNA PCR NOT DETECTED 07/18/20 14:30 Nasal C.pneumoniae (PCR) NOT DETECTED 07/18/20 14:30 Alexx Human Metapneumo PCR NOT DETECTED 07/18/20 14:30 Nasal M.pneumoniae (PCR) NOT DETECTED 07/18/20 14:30 Nasal SARS-CoV-2 (PCR) NOT DETECTED 07/18/20 14:30 Last Dose Date UNK 07/24/20 08:00 Last Dose Time UNK 07/24/20 08:00 Vancomycin Trough 40.3 ug/mL (10.0-20.0) H* 07/24/20 08:00 Urine Opiates Screen NEGATIVE (NEGATIVE) 07/18/20 17:39 Ur Oxycodone Screen POSITIVE (NEGATIVE) H 07/18/20 17:39 Urine Methadone Screen NEGATIVE (NEGATIVE) 07/18/20 17:39 Ur Propoxyphene Screen NEGATIVE (NEGATIVE) 07/18/20 17:39 Ur Barbiturates Screen NEGATIVE (NEGATIVE) 07/18/20 17:39 Ur Tricyclics Screen POSITIVE (NEGATIVE) H 07/18/20 17:39 Ur Phencyclidine Scrn NEGATIVE (NEGATIVE) 07/18/20 17:39 Ur Amphetamine Screen NEGATIVE (NEGATIVE) 07/18/20 17:39 U Methamphetamines Scrn NEGATIVE (NEGATIVE) 07/18/20 17:39 U Benzodiazepines Scrn NEGATIVE (NEGATIVE) 07/18/20 17:39 Urine Cocaine Screen NEGATIVE (NEGATIVE) 07/18/20 17:39 U Cannabinoids Screen NEGATIVE (NEGATIVE) 07/18/20 17:39 Sepsis Event Note (H) - Evaluation Current Stage of Sepsis: Resolved ABX Reporting Has patient been on IV antibiotics over the past 48 hours?: Yes
[2020-07-27] MEDS: SACCHAROMYCES BOULARDII 250 MG CAPSULE PO SCH ×2 (08:11→16:05)
[2020-07-27] MEDS: MULTIVITAMIN W/MINERALS TABLET PO SCH (08:12)
[2020-07-27] MEDS: ACETAMINOPHEN 325 MG TABLET PO PRN ×3 (08:12→20:28)
[2020-07-27] MEDS: DULoxetine 30 MG CAPSULE PO SCH (09:39)
[2020-07-27] MEDS: FUROSEMIDE 40 MG/4 ML VIAL IVP SCH (09:39)
[2020-07-27] MEDS: CLOPIDOGREL 75 MG TABLET PO SCH (09:40)
[2020-07-27] MEDS: METOPROLOL SUCCINATE 25 MG TABLET PO SCH ×2 (09:40→20:30)
[2020-07-27] MEDS: FAMOTIDINE 20 MG TABLET PO SCH ×2 (09:40→20:29)
[2020-07-27] MEDS: ASPIRIN CHEW 81 MG TABLET PO SCH (09:40)
[2020-07-27] MEDS: lisinopriL 5 MG TABLET PO SCH (09:40)
[2020-07-27] MEDS: polyethylene glycoL 3350 17 GM PACKET PO SCH (11:08)
[2020-07-27] MEDS: WARFARIN 1 MG TABLET PO SCH (14:29)
[2020-07-27] MEDS: ATORVASTATIN 40 MG TABLET PO SCH (20:29)
[2020-07-27] MEDS: ARIPiprazole 5 MG TABLET PO SCH (20:30)
[2020-07-28] MEDS: CEFEPIME 1 GM in SODIUM CHLORIDE 0.9% MINIBAG 100 ML IV SCH (03:05)
[2020-07-28] MEDS: ACETAMINOPHEN 325 MG TABLET PO PRN ×3 (03:11→21:01)
[2020-07-28] MEDS: SODIUM CHLORIDE FLUSH 0.9% 10 ML SYRINGE IVP SCH ×3 (03:12→16:15)
[2020-07-28] MEDS: GABAPENTIN 400 MG CAPSULE PO SCH ×3 (05:37→21:02)
[2020-07-28 06:24] LABS: BASOPHILS % (AUTO) 0.4 %; EOSINOPHILS # (AUTO) 0.7 10^3/uL (0.0-0.7); EOSINOPHILS % (AUTO) 7.1 %; HCT - HEMATOCRIT 28.2 % (37.0-47.0); HGB - HEMOGLOBIN 8.5 g/dL (12.0-16.0); LYMPHOCYTES # (AUTO) 1.9 10^3/uL (1.5-3.5); LYMPHOCYTES % (AUTO) 20.1 %; MEAN CORPUSCULAR HEMOGLOBIN 29.1 pg (27.0-31.0); MEAN CORPUSCULAR HGB CONC 30.1 g/dL (32.0-36.0); MEAN CORPUSCULAR VOLUME 96.6 fL (81.0-99.0); MEAN PLATELET VOLUME 10.3 fL (7.9-10.8); MONOCYTES # (AUTO) 0.9 10^3/uL (0.0-1.0); MONOCYTES % (AUTO) 9.9 %; NEUTROPHILS # (AUTO) 5.8 10^3/uL (1.5-6.6); NEUTROPHILS % (AUTO) 62.1 %; PLT - PLATELET COUNT 400 10^3/uL (130-450); RED BLOOD COUNT 2.92 10^6/uL (4.20-5.40); RED CELL DISTRIBUTION WIDTH 13.5 % (12.0-15.0); WHITE BLOOD COUNT 9.4 x10^3/uL (4.8-10.8)
[2020-07-28 06:31] LABS: CALCIUM 8.4 mg/dL (8.5-10.3); CREATININE 1.2 mg/dL (0.4-1.0); POTASSIUM 3.6 mmol/L (3.5-5.0)
--- NOTE | 2020-07-28 07:10 | PROVIDER PROGRESS NOTE ---
Assessment/Plan - Problem List (1) STEMI (ST elevation myocardial infarction) Assessment/Plan: On metoprolol succinate 25 mg p.o. twice daily. On atorvastatin 80 mg p.o. every afternoon. On aspirin 81 mg and Plavix 75 mg p.o. daily. Continue lasix 40mg IV daily Plan for repeat limited 2D echo on Wednesday07/29/20 Plan for discharge to SNF on 07/29/20 (2) Ischemic cardiomyopathy Assessment/Plan: On metoprolol succinate 25 mg p.o. twice daily. On atorvastatin 80 mg p.o. every afternoon. On aspirin 81 mg and Plavix 75 mg p.o. daily. Continue lasix 40mg IV daily Plan for repeat limited 2D echo on Wednesday07/29/20 Plan for discharge to SNF on 07/29/20 (3) Heart failure Assessment/Plan: Continue metoprolol, lisinopril and lasix 40mg IV daily Repeat limited 2D echo on 07/29/20 (4) Gram-positive cocci bacteremia Assessment/Plan: Patient's blood cultures on 07/18/2020 grew E faecalis and Staph epidermidis. Subsequent blood cultures of 07/20/20 have been no growth after 2 days. I suspect this could potentially be contaminant. Vancomycin was discontinued. Cefepime ordered for pneumonia All antibiotics stopped today (5) Pneumonia Qualifiers: Pneumonia type: due to unspecified organism Laterality: left Lung location: lower lobe of lung Qualified Code(s): J18.9 - Pneumonia, unspecified organism Assessment/Plan: Patient was treated with azithromycin and Rocephin 07/18/20-07/19/20. She received Zosyn on 07/19/20 to 07/20/20 Vancomycin IV was discontinued today. She was on vancomycin for 2 daYS Patient's CXR continues to show airway opacities concerning for pneumonia Cefepime 1g IV q8hrs ordered Day #5. All antibiotics stopped today (6) UTI (urinary tract infection) Qualifiers: Urinary tract infection type: acute cystitis Hematuria presence: without h ematuria Qualified Code(s): N30.00 - Acute cystitis without hematuria (8) Acute renal failure Qualifiers: Acute renal failure type: unspecified Qualified Code(s): N17.9 - Acute kidney failure, unspecified Assessment/Plan: Creatinine today is 1.2. Likely related to Heart failure/ Isachemic Cardiomyopathy. EF 30% Continue diuresing. Lasix increased to 40 mg IV daily today. (9) Atrial fibrillation Qualifiers: Atrial fibrillation type: paroxysmal Qualified Code(s): I48.0 - Paroxysmal atrial fibrillation Assessment/Plan: Continue metoprolol succinate and Coumadin. - Current Meds Current Meds: Current Medications Generic Name Dose Route Start Last Admin Trade Name Freq PRN Reason Stop Dose Admin Acetaminophen 650 mg 07/18/20 16:20 07/28/20 03:11 Acetaminophen 325 Mg Tablet PO 650 mg Q4HR PRN Administration Pain 1 to 4 Albuterol 2.5 mg 07/23/20 00:27 07/23/20 09:15 Albuterol Neb 2.5 Mg/3 Ml INH 2.5 mg RTQ4H PRN Administration Wheezing Aripiprazole 5 mg 07/22/20 21:00 07/27/20 20:30 Aripiprazole 5 Mg Tablet PO 5 mg QPM CHELSEA Administration Aspirin 81 mg 07/23/20 09:00 07/27/20 09:40 Aspirin Chew 81 Mg Tablet PO 81 mg DAILY CHELSEA Administration Atorvastatin Calcium 80 mg 07/22/20 21:00 07/27/20 20:29 Atorvastatin 40 Mg Tablet PO 80 mg QPM CHELSEA Administration Clopidogrel Bisulfate 75 mg 07/23/20 09:00 07/27/20 09:40 Clopidogrel 75 Mg Tablet PO 75 mg DAILY CHELSEA Administration Duloxetine HCl 60 mg 07/23/20 09:00 07/27/20 09:39 Duloxetine 30 Mg Capsule PO 60 mg DAILY CHELSEA Administration Famotidine 20 mg 07/18/20 21:00 07/27/20 20:29 Famotidine 20 Mg Tablet PO 20 mg BID CHELSEA Administration Furosemide 40 mg 07/26/20 09:00 07/27/20 09:39 Furosemide 40 Mg/4 Ml Vial IVP 40 mg DAILY CHELSEA Administration Gabapentin 800 mg 07/23/20 06:00 07/28/20 05:37 Gabapentin 400 Mg Capsule PO 800 mg TID CHELSEA Administration Cefepime HCl 1 gm/ Sodium 100 mls @ 200 mls/hr 07/24/20 11:00 07/28/20 03:35 Chloride IV Infused Q8H CHELSEA Infusion Lisinopril 10 mg 07/25/20 09:00 07/27/20 09:40 Lisinopril 5 Mg Tablet PO 10 mg DAILY CHELSEA Administration Metoprolol Succinate 25 mg 07/23/20 21:00 07/27/20 20:30 Metoprolol Succinate 25 Mg Tablet PO 25 mg BID CHELSEA Administration Metoprolol Tartrate 5 mg 07/18/20 18:18 07/23/20 10:38 Metoprolol 5 Mg/5 Ml Vial IVP 5 mg Q6H PRN Administration Tachycardia Morphine Sulfate 1 mg 07/23/20 06:53 07/23/20 19:36 Morphine 2 Mg/Ml Carpuject IVP 1 mg Q3HR PRN Administration PAIN Multi-Ingredient Ointment 1 applic 07/20/20 04:36 07/25/20 21:24 Zinc Oxide 20% Oint 30 Gm Tube TOP 1 applic PRN PRN Administration Skin Care Multivitamins/Minerals 1 tab 07/27/20 08:00 07/27/20 08:12 Multivitamin W/Minerals Tablet PO 1 tab DAILYWM CHELSEA Administration Ondansetron HCl 4 mg 07/18/20 16:20 07/22/20 13:02 Ondansetron 4 Mg/2 Ml Vial IVP 4 mg Q6HR PRN Administration Nausea / Vomiting Polyethylene Glycol 17 gm 07/25/20 10:00 07/27/20 11:08 Polyethylene Glycol 3350 17 Gm Packet PO Not Given DAILY CHELSEA Saccharomyces Boulardii 250 mg 07/19/20 08:00 07/27/20 16:05 Saccharomyces Boulardii 250 Mg Capsule PO 250 mg BIDWM CHELSEA Administration Sodium Chloride 10 ml 07/18/20 16:20 07/26/20 19:47 Sodium Chloride Flush 0.9% 10 Ml Syringe IVP 10 ml PRN PRN Administration NEEDED PER PROVIDER ORDERS Sodium Chloride 10 ml 07/18/20 17:00 07/28/20 03:12 Sodium Chloride Flush 0.9% 10 Ml Syringe IVP 10 ml 0100,0900,1700 CHELSEA Administration Warfarin Sodium 3 mg 07/24/20 09:30 07/25/20 09:35 Warfarin 1 Mg Tablet PO 3 mg WE CHELSEA Administration Warfarin Sodium 1.5 mg 07/27/20 14:00 07/27/20 14:29 Warfarin 1 Mg Tablet PO 1.5 mg SUMOSA CHELSEA Administration - Lab Result Fish Bone Diagrams: 07/28/20 05:50 07/28/20 05:50 - Additional Planning My Orders: My Active Orders 07/27/20 08:00 Multivitamin W/Minerals [Theragran M] 1 tab PO DAILYWM 07/27/20 14:00 Warfarin [Coumadin] 1.5 mg PO SUMOSA 07/27/20 14:55 Code Status [OTHERS] Routine 07/27/20 15:55 COVID-19 REFERENCE TEST Routine Subjective - Subjective Patient Reports: Other (Just completed breakfast at the time of exam. She was alert and oriented x3. She appeared to be in very good spirits. She denied chest pain, dyspnea, abdominal pain, nausea, vomiting, fever or chills. She complained of not sleeping well last night.) Objective Vital Signs: Vital Signs - 24 hr 07/27/20 07/27/20 07/27/20 08:02 11:49 16:33 Temperature 36.6 C 36.2 C L 36.7 C Heart Rate Heart Rate [ 76 66 73 Radial] Respiratory 20 22 20 Rate Blood Pressure 136/50 H 123/50 L [Left Brachial artery] Blood Pressure 120/51 L [Right Radial artery] O2 Saturation 100 99 99 07/27/20 07/27/20 07/27/20 20:15 20:34 22:50 Temperature 36.7 C 36.6 C Heart Rate 79 Heart Rate [ 79 77 Radial] Respiratory 18 18 20 Rate Blood Pressure [Left Brachial artery] Blood Pressure 115/68 119/77 [Right Radial artery] O2 Saturation 97 100 07/28/20 05:35 Temperature Heart Rate Heart Rate [ 62 Radial] Respiratory 16 Rate Blood Pressure 128/42 L [Left Brachial artery] Blood Pressure [Right Radial artery] O2 Saturation 100 Oxygen O2 Source Nasal cannula I&O (Last 24 Hrs): Intake and Output Totals x24h 07/26/20 07/27/20 07/28/20 23:59 23:59 23:59 Intake Total 1725 1180 100 Output Total 2400 3175 300 [facility] -675 -1995 -200 General: Alert, Oriented x3, Cooperative, No acute distress HEENT: PERRLA, EOMI Neck: Supple, No JVD Neuro: Alert, Non Focal, Oriented Times 3 Cardiovascular: Other (Irregularly irregular, 3/6 blowing murmur) Respiratory: Chest non-tender, No respiratory distress, Breath sounds nml Abdomen: Normal bowel sounds, Soft, No tenderness Extremities: No clubbing, No cyanosis, No edema Skin: No rashes Comments/Notes: Lower extremity are very dry, - Results Results: Laboratory Results WBC 9.4 x10^3/uL (4.8-10.8) 07/28/20 05:50 RBC 2.92 10^6/uL (4.20-5.40) L 07/28/20 05:50 Hgb 8.5 g/dL (12.0-16.0) L 07/28/20 05:50 Hct 28.2 % (37.0-47.0) L 07/28/20 05:50 MCV 96.6 fL (81.0-99.0) 07/28/20 05:50 MCH 29.1 pg (27.0-31.0) 07/28/20 05:50 MCHC 30.1 g/dL (32.0-36.0) L 07/28/20 05:50 RDW 13.5 % (12.0-15.0) 07/28/20 05:50 Plt Count 400 10^3/uL (130-450) 07/28/20 05:50 MPV 10.3 fL (7.9-10.8) 07/28/20 05:50 Neut # (Auto) 5.8 10^3/uL (1.5-6.6) 07/28/20 05:50 Lymph # (Auto) 1.9 10^3/uL (1.5-3.5) 07/28/20 05:50 [place] # (Auto) 0.9 10^3/uL (0.0-1.0) 07/28/20 05:50 Eos # (Auto) 0.7 10^3/uL (0.0-0.7) 07/28/20 05:50 Baso # (Auto) 0.0 10^3/uL (0.0-0.1) 07/28/20 05:50 Absolute Nucleated RBC 0.00 x10^3/uL 07/28/20 05:50 Nucleated RBC % 0.0 /100WBC 07/28/20 05:50 PT 26.7 secs (9.9-12.6) H 07/26/20 05:40 INR 2.5 (0.8-1.2) H 07/26/20 05:40 Anti-Xa Level 0.7 U/mL (-0.7) 07/23/20 22:28 Sodium 142 mmol/L (135-145) 07/28/20 05:50 Potassium 3.6 mmol/L (3.5-5.0) 07/28/20 05:50 Chloride 100 mmol/L (101-111) L 07/28/20 05:50 Carbon Dioxide 34 mmol/L (21-32) H 07/28/20 05:50 Anion Gap 8.0 (6-13) 07/28/20 05:50 BUN 26 mg/dL (6-20) H 07/28/20 05:50 Creatinine 1.2 mg/dL (0.4-1.0) H 07/28/20 05:50 Estimated GFR (MDRD) 44 (>89) L 07/28/20 05:50 Glucose 121 mg/dL (70-100) H 07/28/20 05:50 POC Whole Bld Glucose 123 mg/dL (70 - 100) H 07/22/20 12:52 Estimat Average Glucose 137 mg/dL (70-100) H 07/18/20 13:10 Hemoglobin A1c % 6.4 % (4.27-6.07) H 07/18/20 13:10 Lactic Acid 0.7 mmol/L (0.5-2.2) 07/18/20 13:10 Calcium 8.4 mg/dL (8.5-10.3) L 07/28/20 05:50 Total Bilirubin 0.5 mg/dL (0.2-1.0) 07/18/20 13:10 AST 17 IU/L (10-42) 07/18/20 13:10 ALT 12 IU/L (10-60) 07/18/20 13:10 Alkaline Phosphatase 86 IU/L (42-121) 07/18/20 13:10 Troponin I High Sens 2719.9 ng/L (2.3-14.8) H* 07/23/20 16:56 Total Protein 7.5 g/dL (6.7-8.2) 07/18/20 13:10 Albumin 3.0 g/dL (3.2-5.5) L 07/18/20 13:10 Globulin 4.5 g/dL (2.1-4.2) H 07/18/20 13:10 Albumin/Globulin Ratio 0.7 (1.0-2.2) L 07/18/20 13:10 Lipase 16 U/L (22-51) L 07/18/20 13:10 Urine Color YELLOW 07/18/20 12:45 Urine Clarity SL. CLOUDY (CLEAR) 07/18/20 12:45 Urine pH 5.0 PH (5.0-7.5) 07/18/20 12:45 Ur Specific [place] 1.025 (1.002-1.030) 07/18/20 12:45 Urine Protein NEGATIVE mg/dL (NEGATIVE) 07/18/20 12:45 Urine Glucose (UA) NEGATIVE mg/dL (NEGATIVE) 07/18/20 12:45 Urine Ketones NEGATIVE mg/dL (NEGATIVE) 07/18/20 12:45 Urine Occult Blood NEGATIVE (NEGATIVE) 07/18/20 12:45 Urine Nitrite NEGATIVE (NEGATIVE) 07/18/20 12:45 Urine Bilirubin NEGATIVE (NEGATIVE) 07/18/20 12:45 Urine Urobilinogen 0.2 (NORMAL) E.U./dL (NORMAL) 07/18/20 12:45 Ur Leukocyte Esterase MODERATE (NEGATIVE) H 07/18/20 12:45 Urine RBC 0-5 /HPF (0-5) 07/18/20 12:45 Urine WBC >25 /HPF (0-5) H 07/18/20 12:45 Ur Squamous Epith Cells FEW Squamous (<= Few) 07/18/20 12:45 Urine Bacteria Few /HPF (None Seen) 07/18/20 12:45 Ur Microscopic Review INDICATED 07/18/20 12:45 Urine Culture Comments INDICATED 07/18/20 12:45 Nasal Adenovirus (PCR) NOT DETECTED 07/18/20 14:30 Nasal B. parapertussis DNA (PCR) NOT DETECTED 07/18/20 14:30 Nasal Coronavir 229E PCR NOT DETECTED 07/18/20 14:30 Nasal Coronavir HKU1 PCR NOT DETECTED 07/18/20 14:30 Nasal Coronavir NL63 PCR NOT DETECTED 07/18/20 14:30 Nasal Coronavir OC43 PCR NOT DETECTED 07/18/20 14:30 Nasal Enterovir/Rhinovir PCR NOT DETECTED 07/18/20 14:30 Nasal Influenza B PCR NOT DETECTED 07/18/20 14:30 Nasal Influenza A PCR NOT DETECTED 07/18/20 14:30 Nasal Parainfluen 1 PCR NOT DETECTED 07/18/20 14:30 Nasal Parainfluen 2 PCR NOT DETECTED 07/18/20 14:30 Nasal Parainfluen 3 PCR NOT DETECTED 07/18/20 14:30 Nasal Parainfluen 4 PCR NOT DETECTED 07/18/20 14:30 Nasal RSV (PCR) NOT DETECTED 07/18/20 14:30 Nasal Screen MRSA (PCR) NEGATIVE (NEGATIVE) 07/23/20 02:13 Nasal B.pertussis DNA PCR NOT DETECTED 07/18/20 14:30 Nasal C.pneumoniae (PCR) NOT DETECTED 07/18/20 14:30 Alexx Human Metapneumo PCR NOT DETECTED 07/18/20 14:30 Nasal M.pneumoniae (PCR) NOT DETECTED 07/18/20 14:30 Nasal SARS-CoV-2 (PCR) NOT DETECTED 07/18/20 14:30 Last Dose Date UNK 07/24/20 08:00 Last Dose Time UNK 07/24/20 08:00 Vancomycin Trough 40.3 ug/mL (10.0-20.0) H* 07/24/20 08:00 Urine Opiates Screen NEGATIVE (NEGATIVE) 07/18/20 17:39 Ur Oxycodone Screen POSITIVE (NEGATIVE) H 07/18/20 17:39 Urine Methadone Screen NEGATIVE (NEGATIVE) 07/18/20 17:39 Ur Propoxyphene Screen NEGATIVE (NEGATIVE) 07/18/20 17:39 Ur Barbiturates Screen NEGATIVE (NEGATIVE) 07/18/20 17:39 Ur Tricyclics Screen POSITIVE (NEGATIVE) H 07/18/20 17:39 Ur Phencyclidine Scrn NEGATIVE (NEGATIVE) 07/18/20 17:39 Ur Amphetamine Screen NEGATIVE (NEGATIVE) 07/18/20 17:39 U Methamphetamines Scrn NEGATIVE (NEGATIVE) 07/18/20 17:39 U Benzodiazepines Scrn NEGATIVE (NEGATIVE) 07/18/20 17:39 Urine Cocaine Screen NEGATIVE (NEGATIVE) 07/18/20 17:39 U Cannabinoids Screen NEGATIVE (NEGATIVE) 07/18/20 17:39 Sepsis Event Note (H) - Evaluation Current Stage of Sepsis: Resolved ABX Reporting Has patient been on IV antibiotics over the past 48 hours?: Yes
[2020-07-28] MEDS: MULTIVITAMIN W/MINERALS TABLET PO SCH (08:01)
[2020-07-28] MEDS: SACCHAROMYCES BOULARDII 250 MG CAPSULE PO SCH ×2 (08:01→16:14)
[2020-07-28] MEDS: FAMOTIDINE 20 MG TABLET PO SCH ×2 (08:42→21:02)
[2020-07-28] MEDS: ASPIRIN CHEW 81 MG TABLET PO SCH (08:42)
[2020-07-28] MEDS: CLOPIDOGREL 75 MG TABLET PO SCH (08:42)
[2020-07-28] MEDS: DULoxetine 30 MG CAPSULE PO SCH (08:42)
[2020-07-28] MEDS: FUROSEMIDE 40 MG/4 ML VIAL IVP SCH (08:42)
[2020-07-28] MEDS: lisinopriL 5 MG TABLET PO SCH (08:43)
[2020-07-28] MEDS: METOPROLOL SUCCINATE 25 MG TABLET PO SCH ×2 (08:43→21:02)
[2020-07-28] MEDS: polyethylene glycoL 3350 17 GM PACKET PO SCH (08:43)
[2020-07-28] MEDS: WARFARIN 1 MG TABLET PO SCH (14:43)
[2020-07-28] MEDS: ARIPiprazole 5 MG TABLET PO SCH (21:01)
[2020-07-28] MEDS: ATORVASTATIN 40 MG TABLET PO SCH (21:02)
[2020-07-29] MEDS: ACETAMINOPHEN 325 MG TABLET PO PRN ×3 (03:57→14:37)
[2020-07-29] MEDS: SODIUM CHLORIDE FLUSH 0.9% 10 ML SYRINGE IVP SCH ×2 (03:59→08:29)
[2020-07-29 05:37] LABS: PT - PROTHROMBIN TIME 21.1 secs (9.9-12.6)
[2020-07-29] MEDS: GABAPENTIN 400 MG CAPSULE PO SCH ×2 (05:49→14:38)
[2020-07-29] MEDS: DULoxetine 30 MG CAPSULE PO SCH (08:22)
[2020-07-29] MEDS: lisinopriL 5 MG TABLET PO SCH (08:22)
[2020-07-29] MEDS: FAMOTIDINE 20 MG TABLET PO SCH (08:22)
[2020-07-29] MEDS: MULTIVITAMIN W/MINERALS TABLET PO SCH (08:22)
[2020-07-29] MEDS: METOPROLOL SUCCINATE 25 MG TABLET PO SCH (08:23)
[2020-07-29] MEDS: ASPIRIN CHEW 81 MG TABLET PO SCH (08:23)
[2020-07-29] MEDS: SACCHAROMYCES BOULARDII 250 MG CAPSULE PO SCH (08:23)
[2020-07-29] MEDS: CLOPIDOGREL 75 MG TABLET PO SCH (08:23)
[2020-07-29] MEDS: FUROSEMIDE 40 MG/4 ML VIAL IVP SCH (08:23)
[2020-07-29] MEDS: polyethylene glycoL 3350 17 GM PACKET PO SCH (08:29)
--- NOTE | 2020-07-29 10:48 | Discharge Plan ---
"Discharge Plan for SNF / [facility] - Discharge Plan And Transition Orders Problem Reviewed?: Yes Disposition: 03 SNF DC/Xfer Condition: Stable Allergies and Adverse Reactions: Allergies Allergy/AdvReac Type Severity Reaction Status Date / Time phenobarbital Allergy Hives Verified 07/18/20 11:31 morphine AdvReac Intermediate Hallucinati Verified 07/24/20 19:33 ons doxycycline AdvReac Nausea Verified 07/18/20 11:31 Health Concerns: You were initially admitted with confusion/altered mental status which was thought to be due to pneumonia, urinary tract infection and possible pain medication overuse. Your pain medications were held. You were treated with antibiotics and recovered well. He also had acute kidney injury upon presentation. This could have been due to infection but also potentially due to dehydration. You received IV hydration and you kidney numbers improved considerably from a creatinine of 4.4 down to 1.1. Your baseline creatinine is 1.0. About 4 days into your hospital stay you had worsening respiratory distress/failure for which work-up included an EKG. This showed that you were having an active/acute heart attack. A conversation took place between your children Juvenal and the night physician. It was decided that we should pursue medical management only and not transfer you for a cardiac cath. You had an echocardiogram which is an ultrasound of your heart done on the day before the heart attack. Your ejection fraction at the time was 70 to 75%. After the heart attack we checked the echocardiogram again and your ejection fraction was 30 to 35%. Several portions of your heart appeared not to be working as well. The echocardiogram was repeated again 6 days after the second 1 was done and your ejection fraction was again noted to be 70 to 75%. As a result you will be discharged to a Nursing Home facility for rehabilitation. Because of the heart attack some new medications were added to your list. You will currently be on the following: Metoprolol succinate 25 mg p.o. twice daily. Atorvastatin 80 mg p.o. every afternoon. Aspirin 81 mg p.o. daily Lisinopril 10 mg p.o. daily Plavix 75 mg p.o. daily. You will stop taking Plavix on August 22, 2020. You will continue taking your Coumadin at home dose. Your Lasix was changed from 80 mg p.o. daily to 40 mg p.o. daily. You obtain discharged to [facility] for rehabilitation. You I expected to follow-up with a clothes drier repairer within 7 to 10 days. The above have been explained to you and your family and you expressed understanding. Plan of Treatment: You were initially admitted with confusion/altered mental status which was thought to be due to pneumonia, urinary tract infection and possible pain medication overuse. Your pain medications were held. You were treated with antibiotics and recovered well. He also had acute kidney injury upon presentation. This could have been due to infection but also potentially due to dehydration. You received IV hydration and you kidney numbers improved considerably from a creatinine of 4.4 down to 1.1. Your baseline creatinine is 1.0. About 4 days into your hospital stay you had worsening respiratory distress/failure for which work-up included an EKG. This showed that you were having an active/acute heart attack. A conversation took place between your children Joe and tima and the night physician. It was decided that we should pursue medical management only and not transfer you for a cardiac cath. You had an echocardiogram which is an ultrasound of your heart done on the day before the heart attack. Your ejection fraction at the time was 70 to 75%. After the heart attack we checked the echocardiogram again and your ejection fraction was 30 to 35%. Several portions of your heart appeared not to be working as well. The echocardiogram was repeated again 6 days after the second 1 was done and your ejection fraction was again noted to be 70 to 75%. As a result you will be discharged to a Nursing Home facility for rehabilitation. Because of the heart attack some new medications were added to your list. You will currently be on the following: Metoprolol succinate 25 mg p.o. twice daily. Atorvastatin 80 mg p.o. every afternoon. Aspirin 81 mg p.o. daily Lisinopril 10 mg p.o. daily Plavix 75 mg p.o. daily. You will stop taking Plavix on August 22, 2020. You will continue taking your Coumadin at home dose. Your Lasix was changed from 80 mg p.o. daily to 40 mg p.o. daily. You obtain discharged to [facility] for rehabilitation. You I expected to follow-up with a clothes drier repairer within 7 to 10 days. The above have been explained to you and your family and you expressed understanding. Care Goals: You were initially admitted with confusion/altered mental status which was thought to be due to pneumonia, urinary tract infection and possible pain medication overuse. Your pain medications were held. You were treated with antibiotics and recovered well. He also had acute kidney injury upon presentation. This could have been due to infection but also potentially due to dehydration. You received IV hydration and you kidney numbers improved considerably from a creatinine of 4.4 down to 1.1. Your baseline creatinine is 1.0. About 4 days into your hospital stay you had worsening respiratory distress/failure for which work-up included an EKG. This showed that you were having an active/acute heart attack. A conversation took place between your children Joe and tima and the night physician. It was decided that we should pursue medical management only and not transfer you for a cardiac cath. You had an echocardiogram which is an ultrasound of your heart done on the day before the heart attack. Your ejection fraction at the time was 70 to 75%. Af ter the heart attack we checked the echocardiogram again and your ejection fraction was 30 to 35%. Several portions of your heart appeared not to be working as well. The echocardiogram was repeated again 6 days after the second 1 was done and your ejection fraction was again noted to be 70 to 75%. As a result you will be discharged to a Nursing Home facility for rehabilitation. Because of the heart attack some new medications were added to your list. You will currently be on the following: Metoprolol succinate 25 mg p.o. twice daily. Atorvastatin 80 mg p.o. every afternoon. Aspirin 81 mg p.o. daily Lisinopril 10 mg p.o. daily Plavix 75 mg p.o. daily. You will stop taking Plavix on August 22, 2020. You will continue taking your Coumadin at home dose. Your Lasix was changed from 80 mg p.o. daily to 40 mg p.o. daily. You obtain discharged to [facility] for rehabilitation. You I expected to follow-up with a clothes drier repairer within 7 to 10 days. The above have been explained to you and your family and you expressed understanding. Assessment: You were initially admitted with confusion/altered mental status which was thought to be due to pneumonia, urinary tract infection and possible pain medication overuse. Your pain medications were held. You were treated with antibiotics and recovered well. He also had acute kidney injury upon presentation. This could have been due to infection but also potentially due to dehydration. You received IV hydration and you kidney numbers improved considerably from a creatinine of 4.4 down to 1.1. Your baseline creatinine is 1.0. About 4 days into your hospital stay you had worsening respiratory distress/failure for which work-up included an EKG. This showed that you were having an active/acute heart attack. A conversation took place between your children Juvenal and the night physician. It was decided that we should pursue medical management only and not transfer you for a cardiac cath. You had an echocardiogram which is an ultrasound of your heart done on the day before the heart attack. Your ejection fraction at the time was 70 to 75%. After the heart attack we checked the echocardiogram again and your ejection fraction was 30 to 35%. Several portions of your heart appeared not to be working as well. The echocardiogram was repeated again 6 days after the second 1 was done and your ejection fraction was again noted to be 70 to 75%. As a result you will be discharged to a Nursing Home facility for rehabilitation. Because of the heart attack some new medications were added to your list. You will currently be on the following: Metoprolol succinate 25 mg p.o. twice daily. Atorvastatin 80 mg p.o. every afternoon. Aspirin 81 mg p.o. daily Lisinopril 10 mg p.o. daily Plavix 75 mg p.o. daily. You will stop taking Plavix on August 22, 2020. You will continue taking your Coumadin at home dose. Your Lasix was changed from 80 mg p.o. daily to 40 mg p.o. daily. You obtain discharged to [facility] for rehabilitation. You I expected to follow-up with a clothes drier repairer within 7 to 10 days. The above have been explained to you and your family and you expressed understanding. - SNF / [facility] Transition Orders Admit to (Facility): [facility] Discharge Diagnosis: STEMI: Family opted for medical management only. Medications have been optimized. Ischemic cardiomyopathy: Improved/resolved. Ejection fraction on 2D echocardiogram done on the day of discharge showed an EF of 70 to 75%. There was impaired relaxation consistent with grade 1 diastolic dysfunction Acute kidney injury: Improved. Creatinine at admission was 4.4 with an estimated GFR of 10. Creatinine at discharge was 1.2 with an estimated GFR of 44. Baseline Creatinie is 1 Supratherapeutic INR: Resolved. INR at discharge was 2.0 Pneumonia: Resolved. Patient was treated with azithromycin, Rocephin and subsequently cefepime. She received antibiotics for at least 1 week. UTI: Resolved Hyperkalemia: Resolved. Potassium at discharge was 3.6 Atrial fibrillation: Chronic. Patient is on metoprolol succinate 25mg po bid. Diltiazem was discontinued. Narcotic overdose: Resolved patient is alert, awake, oriented x4 at the time of discharge. Chronic pain Medicare Certification Statement: I certify that Post Hospital care home care is medically necessary on a continuing basis for any of the conditions for which she/he is receiving care during hospitalization. Notify PCP of admission and forward orders to primary provider for signature. Weight on admission and: Daily Other Notification Orders: Call PCP immediately if patient develops dyspnea, chest pain/tightness or edema. House Bowel Program: Yes Additional Bowel Program Orders: If no BM after 2 days, nurse may give M.O.M. 30ml PO PRN and/or ducolax Supp 1 UT and/or CARMELO 250mg P.O., and/or senna 1-2 tabs PO. On day 3 nurse may give repeat above order until residents constipation is resolved. Annual Influenza Vaccine (between Dec 18 and July 17): Yes Medication Orders: PLEASE REFER TO THE DISCHARGE MEDICATION LIST. - Medications New Prescriptions: Clopidogrel [Plavix] 75 mg PO DAILY 24 Days #24 tablet Aspirin Chewable [St Abdiel Aspirin] 81 mg PO DAILY #30 tablet Metoprolol Succinate [Toprol Xl] 25 mg PO BID 30 Days #60 tablet - Diet Type: Cardiac Texture: Regular May have monthly special meal: Yes - Therapies | Activity Therapy: Evaluation | Treat if indicated: PT, OT Rehabilitation Potential: Maximize functional status, Return to independent living Activity: Per Therapy Assistance Devices: Walker Follow Up: Follow-up with cardiology within 7 to 10 days."
--- NOTE | 2020-07-29 10:49 | DISCHARGE SUMMARY ---
Discharge Summary Admit Date: 07/18/20 Discharge Date: 07/29/20 Discharging Provider: Jesus Bakertu Code Status: Attempt Resuscitation Condition at Discharge: Stable Discharge Disposition: SNF DC/Xfer Discharge Facility Name: [facility] - DIAGNOSES Admission Diagnoses: JP Supratherapeutic INR Pneumonia UTI Hypokalemia Atrial fibrillation Narcotic overdose Chronic pain Discharge Diagnoses with Status of Each Condition: STEMI: Acute. Patient's family opted for medical management only. Ischemic cardiomyopathy: Secondary to STEMI. Improved. On metoprolol succinate and Lasix. Heart failureOn Lasix, metoprolol. Gram-positive cocci bacteremia:Vancomycin IV for 2 days. Rocephin for 1 day. Azithromycin 500 mg IV 3 days. Cefepime for 6 days. Pneumonia: Resolved patient received at least 10 days of antibiotics. UTI: Resolved Acute renal failureImproved/resolved. At presentation patient's creatinine was 4.4. By discharge her creatinine was 1.2. Her baseline is 1.0 Atrial fibrillation: Chronic on Coumadin and metoprolol succinate. Supratherapeutic INRResolved. Patient's INR was 2.0 on the day of discharge Hypokalemia: Resolved Narcotic overdose: Resolved Chronic pain - HPI History of Present Illness: Per HPI: This is a 69-year-old female with a Medical history significant of Morbidly obese, Juelswa-Lihkr-Gmgrd foot, chronic neck and back pain with hx of accident opiates and a benzodiazepine overdose, Stroke, A fibrillation with Coumadin, CKD, hypertension, history of DVT, moderate pulmonary hypertension, UTI who present ER complain of increasing on her neck and back pain. pt is poor history. Called to pt's daughter Jana. she report her mother became very confused "not herself", sleep more, and she became incontinence. pt was not drinking and eating. she report her mother took her pain medications more than your scheduled to have. She had these kind history before. Pt has no fever but with cough, phlegm, and shortness of breath. She has no chest pain. Her family become more difficult to take care of pt. She brought pt to see her PCP and hope to have replace to SNF but was not success yet. In ER, pt was found to have creatinine is 4.4, her baseline was around 1, BUN 97, baseline BUN was around 21, potassium 5.6, slight elevated WBC 10.9, UA show pyuria with elevated WBC and positive Esterase, pt has hx of multiple times of urinary tract infection. INR is 8.7. Checks x-ray show large hiatal hernia as pt's hx, and Left basilar atelectasis and possible consolidation. pt is afebrile, BP 109/88 otherwise she is Hemodynamic stable. Patient's daughter confirm patient is DNR CODE STATUS. Patient was initially started on Rocephin and azithromycin To treat pneumonia and UTI. Blood cultures subsequently resulted E faecalis and staph epidermidis. The urine culture grew E. coli. Was resistant to ampicillin Unasyn and flooroquinolones. Patient was briefly put on Zosyn which was subsequently switched to cefepime. She was also on vancomycin. By the time of discharge patient received a complete dose of azithromycin and 7 days of cefepime. She received IV hydration from time of mission which improved her renal function steadily over the course of her hospital stay. At admission she had an estimated GFR of 10, creatinine 4.4 and BUN of 97. On the day of discharge she had an estimated GFR of 44 BUN 26 creatinine 1.2. Coumadin was initially held at admission because her INR was 8.7. There was no sign of bleeding so no further intervention was warranted. Lowest patient's INR was was 1.5. On the night of 07/22/20 breaking patient Experience worsening dyspnea and decreased oxygen saturation. She underwent significant work-up which included CT angiogram, EKG and troponin check. She was found to have a STEMI. EKG findings showed ST elevations in V1 and V2, ST depressions in V4 to V6. She was given a full dose aspirin and a full dose of Plavix 300 mg x 1. She was started on a heparin drip. Her Coumadin was held. After discussion with the patient's family this included her daughter Jana and son Joe they decided to pursue medical management only and not transfer the patient for cardiac intervention.Reporting trended thus:27.9 > 288.4 > 435.4 > 2031.3 > 2837.4 > 2700. She was maintained on a heparin drip for 2 days. Since initial 2D echocardiogram on 07/22/20 showed an overall left ventricular systolic function normal with an ejection fraction of 77 5%. There was impaired relaxation consistent with grade 1 diastolic dysfunction. Right ventricle size was normal. Normal function as well. RVSP was 42. There was no pleural effusion. The 2D echocardiogram was repeated on 07/23/20 following the patient STEMI. It showed a left ventricular systolic function which was moderately to severely impaired with an ejection fraction of 30 to 35%. There were regional wall motion abnormalities. Showed severe hypokinesis of the basal/mid inferior, septal anterior and anteroseptal baugh segment. Patient's Coumadin was resumed and she was weaned off heparin drip. She was started on metoprolol succinate 25 mg twice daily. She also received Lasix 40 mg IV on the day of occurence of STEMI. This was maintained throughout the patient's hospital stay. By the time of discharge patient's Lasix of 80 mg an y was changed to 40 mg p.o. daily. Patient's respiratory status improved significantly in the days following the STEMI. I spoke with Dr. Cox foreign agent on-call at [facility] who recommended pato aguilar didyana. Then repeating a limited echocardiogram. If the patient's ejection fraction is improved then no further work-up is warranted. If there is no improvement or if there is worsening in the ejection fraction then to do a stress test. Repeat 2D echocardiogram on 07/29/20 showed an ejection fraction of about 70%. Patient was discharged to [facility] for rehabilitation. Significant note on her medications with hours. She was on metoprolol succinate 25 mg p.o. twice daily. Atorvastatin 80 mg p.o. nightly. Aspirin 81 mg p.o. daily. Plavix 75 mg p.o. daily. She was to stop Plavix on August 22, 2020. This would have been 30-day. Of Plavix. Coumadin at home dose. Her Lasix was changed from 80mg to 40 mg p.o. daily. Diltiazem was discontinued. Lisinopril 10 mg p.o. daily. The patient had an appointment made with cardiology at the [facility]. She was also advised to follow-up with her primary care physician within 7 to 10 days. On the day before the patient's discharge we completed a POLST form on which the patient and her children requested that CPR be done in the event that it was indicated but under no condition should she be intubated. Her point of concern was patient's subsequent/ventral placement after rehab. The patient strongly expressed her wish to return home after rehab. Based on her recent diagnosis and the events of the past week it was my opinion that the patient would not be able to function on her own at home thus she was not a safe discharge home on her own. I attempted to bring up other possibilities for consideration like a long-term care facility. She is not open to considering that. It also appears that her children will not be able to provide the assistance/care she needs at home. I will ask social work and the discharge coordinators sales operations assistant on the issue. - ALLERGIES Allergies/Adverse Reactions: Allergies Allergy/AdvReac Type Severity Reaction Status Date / Time phenobarbital Allergy Hives Verified 07/18/20 11:31 morphine AdvReac Intermediate Hallucinati Verified 07/24/20 19:33 ons doxycycline AdvReac Nausea Verified 07/18/20 11:31 - MEDICATIONS Home Medications: Ambulatory Orders Medication Instructions Recorded Confirmed lisinopriL [Lisinopril] 10 mg PO DAILY 03/23/15 07/19/20 Atorvastatin Calcium [Lipitor] 80 mg PO QPM 05/02/15 07/19/20 ARIPiprazole [Abilify] 5 mg PO QPM 07/19/20 07/19/20 Duloxetine HCl [Cymbalta] 60 mg PO DAILY 07/19/20 07/19/20 Gabapentin [Neurontin] 800 mg PO TID 07/19/20 07/19/20 Oxybutynin [Ditropan] 5 mg PO BID 07/19/20 07/19/20 Pantoprazole [Protonix] 40 mg PO BID 07/19/20 07/19/20 Potassium Chloride 40 meq PO DAILY 07/19/20 07/19/20 Solifenacin Succinate [Vesicare] 10 mg PO DAILY 07/19/20 07/19/20 Warfarin [Coumadin] 1.5 mg PO SUMOSA 07/19/20 07/19/20 Warfarin [Coumadin] 3 mg PO WETH 07/19/20 07/19/20 oxyCODONE [Roxicodone] 5 mg PO Q6H 07/19/20 07/19/20 Aspirin Chewable [St Abdiel 81 mg PO DAILY #30 tablet 07/29/20 Aspirin] Clopidogrel [Plavix] 75 mg PO DAILY 24 Days #24 tablet 07/29/20 Furosemide [Lasix] 40 mg PO DAILY 30 Days #30 07/29/20 07/19/20 Metoprolol Succinate [Toprol Xl] 25 mg PO BID 30 Days #60 tablet 07/29/20 - PHYSICAL EXAM AT DISCHARGE General Appearance: positive: No acute distress, Alert Eyes Bilateral: positive: PERRL, EOMI Neck: positive: No JVD, Trachea midline Respiratory: positive: Chest non-tender, No respiratory distress, Breath sounds nml. negative: Wheezes, Rales, Rhonchi Cardiovascular: positive: Irregularly irregular, Systolic murmur Abdomen: positive: Non-tender, No organomegaly, Nml bowel sounds Back: positive: Nml inspection Skin: positive: Color nml, No rash, Warm, Dry Extremities: positive: Non-tender, Nml appearance, No pedal edema Neurologic/Psychiatric: positive: Oriented x3, Mood/affect nml - LABS Result Diagrams: 07/28/20 05:50 07/28/20 05:50 - SEPSIS Current Stage of Sepsis: Resolved - TIME SPENT Time Spent in Discharge (Minutes): 35
[2020-07-29] MEDS: WARFARIN 1 MG TABLET PO SCH (14:38)
[2020-07-29 15:30] VITALS: BP 145/55
== END 2020-07-29 15:45 | DRG 193 ==
LOC: ED 11:09 → MS2 16:20 → ICU 07-23 02:19 → MS2 07-25 02:30
PROVIDERS: ADMIT Nurse Practitioner Gerontology; ATTEND Internal Medicine
PROC: 02HV33Z Insertion of Infusion Device into Superior Vena Cava, Percutaneous Approach (ICD-10-PCS; principal; 2020-07-22)
DX: J18.9 Pneumonia, unspecified organism (principal); N17.9 Acute kidney failure, unspecified; I21.3 ST elevation (STEMI) myocardial infarction of unspecified site; J96.01 Acute respiratory failure with hypoxia; N30.00 Acute cystitis without hematuria; R62.7 Adult failure to thrive; Z16.11 Resistance to penicillins; Z16.23 Resistance to quinolones and fluoroquinolones; I48.91 Unspecified atrial fibrillation; E87.1 Hypo-osmolality and hyponatremia; E87.0 Hyperosmolality and hypernatremia; E11.9 Type 2 diabetes mellitus without complications; I95.9 Hypotension, unspecified; I13.0 Hypertensive heart and chronic kidney disease with heart failure and stage 1 through stage 4 chronic kidney disease, or unspecified chronic kidney disease; B96.20 Unspecified Escherichia coli [E. coli] as the cause of diseases classified elsewhere; B95.8 Unspecified staphylococcus as the cause of diseases classified elsewhere; R79.1 Abnormal coagulation profile; T40.2X1A Poisoning by other opioids, accidental (unintentional), initial encounter; Z79.01 Long term (current) use of anticoagulants; I48.0 Paroxysmal atrial fibrillation; Y92.009 Unspecified place in unspecified non-institutional (private) residence as the place of occurrence of the external cause; M54.9 Dorsalgia, unspecified; I10 Essential (primary) hypertension; E87.6 Hypokalemia; M54.2 Cervicalgia; E66.01 Morbid (severe) obesity due to excess calories; Z68.38 Body mass index [BMI] 38.0-38.9, adult; Z66 Do not resuscitate; G60.0 Hereditary motor and sensory neuropathy; E86.0 Dehydration; R53.1 Weakness; E87.5 Hyperkalemia; Z20.822 Contact with and (suspected) exposure to COVID-19; F32.9 Major depressive disorder, single episode, unspecified; G89.4 Chronic pain syndrome; R53.83 Other fatigue; N18.9 Chronic kidney disease, unspecified; I50.9 Heart failure, unspecified; I25.5 Ischemic cardiomyopathy; R41.82 Altered mental status, unspecified
CPT/HCPCS: 36415; 71045; 71275; 80048; 80053; 80202; 80306; 81001; 82272; 83036; 83605; 83690; 84132; 84484; 85025; 85520; 85610; 87040; 87086; 87150; 87181; 87631; 87640; 93005; 93306; 93308; 94640; 94660; 96360; 97110; 97116; 97161; 97162; 97166; 97168; 97530; 99284; 99285; A9270; C1751; J3370; Q9967; U0004; 0202U; 81003

== ENCOUNTER 2020-08-01 17:25 | Outpatient (CLI) | payer MEDICARE, BC ==
[2020-08-01 20:20] LABS: BASOPHILS # (AUTO) 0.1 10^3/uL (0.0-0.1); BASOPHILS % (AUTO) 0.6 %; EOSINOPHILS # (AUTO) 0.3 10^3/uL (0.0-0.7); EOSINOPHILS % (AUTO) 4.1 %; HCT - HEMATOCRIT 30.7 % (37.0-47.0); HGB - HEMOGLOBIN 9.2 g/dL (12.0-16.0); LYMPHOCYTES % (AUTO) 24.6 %; MEAN CORPUSCULAR HEMOGLOBIN 28.8 pg (27.0-31.0); MEAN CORPUSCULAR VOLUME 95.9 fL (81.0-99.0); MEAN PLATELET VOLUME 10.2 fL (7.9-10.8); MONOCYTES # (AUTO) 0.7 10^3/uL (0.0-1.0); NEUTROPHILS % (AUTO) 61.3 %; PLT - PLATELET COUNT 475 10^3/uL (130-450); RED CELL DISTRIBUTION WIDTH 13.2 % (12.0-15.0); WHITE BLOOD COUNT 8.2 x10^3/uL (4.8-10.8)
[2020-08-01 20:29] LABS: ALBUMIN 3.1 g/dL (3.2-5.5); ALBUMIN/GLOBULIN RATIO 0.8 (1.0-2.2); BILIRUBIN,TOTAL 0.2 mg/dL (0.2-1.0); CALCIUM 8.7 mg/dL (8.5-10.3); CREATININE 1.3 mg/dL (0.4-1.0); POTASSIUM 4.4 mmol/L (3.5-5.0)
== END 2020-08-01 23:59 | disposition home or self-care (01) ==
LOC: LAB.R 17:25
DX: I21.3 ST elevation (STEMI) myocardial infarction of unspecified site (principal); J96.91 Respiratory failure, unspecified with hypoxia
CPT/HCPCS: 80053; 85025

== ENCOUNTER 2020-08-12 13:29 | Outpatient (CLI) | payer MEDICARE, BC ==
[2020-08-12 13:36] LABS: BASOPHILS # (AUTO) 0.1 10^3/uL (0.0-0.1); BASOPHILS % (AUTO) 0.8 %; EOSINOPHILS # (AUTO) 0.2 10^3/uL (0.0-0.7); EOSINOPHILS % (AUTO) 3.4 %; HCT - HEMATOCRIT 34.4 % (37.0-47.0); HGB - HEMOGLOBIN 10.1 g/dL (12.0-16.0); LYMPHOCYTES # (AUTO) 1.7 10^3/uL (1.5-3.5); LYMPHOCYTES % (AUTO) 24.1 %; MEAN CORPUSCULAR HEMOGLOBIN 28.9 pg (27.0-31.0); MEAN CORPUSCULAR HGB CONC 29.4 g/dL (32.0-36.0); MEAN CORPUSCULAR VOLUME 98.3 fL (81.0-99.0); MEAN PLATELET VOLUME 10.9 fL (7.9-10.8); MONOCYTES # (AUTO) 0.8 10^3/uL (0.0-1.0); MONOCYTES % (AUTO) 10.8 %; NEUTROPHILS # (AUTO) 4.3 10^3/uL (1.5-6.6); NEUTROPHILS % (AUTO) 60.6 %; PLT - PLATELET COUNT 355 10^3/uL (130-450); RED CELL DISTRIBUTION WIDTH 13.1 % (12.0-15.0); WHITE BLOOD COUNT 7.1 x10^3/uL (4.8-10.8)
[2020-08-12 14:37] LABS: ALBUMIN 3.5 g/dL (3.2-5.5); ALBUMIN/GLOBULIN RATIO 0.9 (1.0-2.2); BILIRUBIN,TOTAL 0.5 mg/dL (0.2-1.0); CALCIUM 9.2 mg/dL (8.5-10.3); CREATININE 1.6 mg/dL (0.4-1.0); POTASSIUM 5.3 mmol/L (3.5-5.0); TOTAL PROTEIN 7.6 g/dL (6.7-8.2)
== END 2020-08-12 13:30 | disposition home or self-care (01) ==
LOC: LAB.R 13:29
PROVIDERS: ATTEND Family Medicine
DX: E11.9 Type 2 diabetes mellitus without complications (principal); I21.3 ST elevation (STEMI) myocardial infarction of unspecified site
CPT/HCPCS: 80053; 85025

== ENCOUNTER 2020-09-15 17:43 | Outpatient (CLI) | payer MEDICARE, BC | END 2020-09-15 17:44 | disposition critical access hospital (66) | LOC: EMS 17:43 | DX: R53.1 Weakness (principal) | CPT/HCPCS: A0425; A0429 ==

== ENCOUNTER 2020-09-15 18:07 | Emergency (ER) | payer MEDICARE, BC ==
[2020-09-15 18:30] LABS: BASOPHILS # (AUTO) 0.1 10^3/uL (0.0-0.1); BASOPHILS % (AUTO) 0.4 %; EOSINOPHILS # (AUTO) 0.1 10^3/uL (0.0-0.7); EOSINOPHILS % (AUTO) 0.4 %; HCT - HEMATOCRIT 28.4 % (37.0-47.0); HGB - HEMOGLOBIN 8.9 g/dL (12.0-16.0); LYMPHOCYTES # (AUTO) 1.2 10^3/uL (1.5-3.5); LYMPHOCYTES % (AUTO) 10.4 %; MEAN CORPUSCULAR HEMOGLOBIN 28.1 pg (27.0-31.0); MEAN CORPUSCULAR HGB CONC 31.3 g/dL (32.0-36.0); MEAN CORPUSCULAR VOLUME 89.6 fL (81.0-99.0); MEAN PLATELET VOLUME 8.5 fL (7.9-10.8); MONOCYTES # (AUTO) 0.9 10^3/uL (0.0-1.0); MONOCYTES % (AUTO) 7.7 %; NEUTROPHILS # (AUTO) 9.5 10^3/uL (1.5-6.6); NEUTROPHILS % (AUTO) 80.7 %; PLT - PLATELET COUNT 344 10^3/uL (130-450); RED BLOOD COUNT 3.17 10^6/uL (4.20-5.40); WHITE BLOOD COUNT 11.8 x10^3/uL (4.8-10.8)
[2020-09-15 18:36] LABS: INR 2.1 (0.8-1.2); PT - PROTHROMBIN TIME 22.4 secs (9.9-12.6)
[2020-09-15 18:43] LABS: PARTIAL THROMBOPLASTIN TIME 34.6 secs (24.9-33.3)
[2020-09-15 18:45] LABS: ALBUMIN 2.9 g/dL (3.2-5.5); ALBUMIN/GLOBULIN RATIO 0.6 (1.0-2.2); BILIRUBIN,TOTAL 0.5 mg/dL (0.2-1.0); CALCIUM 8.8 mg/dL (8.5-10.3); CREATININE 1.1 mg/dL (0.4-1.0); TOTAL PROTEIN 7.7 g/dL (6.7-8.2)
--- NOTE | 2020-09-15 18:45 | XRAY Report ---
PROCEDURE: Chest 1 View X-Ray INDICATIONS: fever TECHNIQUE: One view of the chest was acquired. COMPARISON: CXR 07/24/2020. CT pulmonary angiogram 07/24/2020. FINDINGS: Surgical changes and devices: Right breast clips. Lungs and pleura: No pleural effusions or pneumothorax. Diffuse prominence of the pulmonary markings bilaterally. This is improved compared to 07/24/2020. Mediastinum: Mediastinal contours appear normal. Hiatal hernia. Heart size is enlarged. Bones and chest wall: No suspicious bony lesions. Overlying soft tissues appear unremarkable. IMPRESSION: Suspect fluid overload/CHF. Improved opacity in the right upper lobe. Cardiomegaly. Hiatal hernia. Reviewed by: Tim Hanna MD on 09/15/2020 6:43 PM PDT Approved by: Tim Hanna MD on 09/15/2020 6:43 PM PDT Station ID: [id number]
[2020-09-15 19:51] LABS: BILIRUBIN,URINE NEGATIVE (NEGATIVE); GLUCOSE, URINE (UA) NEGATIVE (NEGATIVE); KETONES,URINE (UA) NEGATIVE (NEGATIVE); LEUKOCYTE ESTERASE, URINE MODERATE (NEGATIVE); NITRITE,URINE POSITIVE (NEGATIVE); OCCULT BLOOD,URINE TRACE-INTA (NEGATIVE); PH,URINE 6.5 PH (5.0-7.5); PROTEIN,URINE NEGATIVE (NEGATIVE); UROBILINOGEN,URINE 0.2 (NORMAL) E.U./dL (NORMAL)
[2020-09-15 19:53] LABS: BACTERIA,URINE Many /HPF (None Seen); CLARITY,URINE SL. CLOUDY (CLEAR); RBC,URINE 0-5 /HPF (0-5); SQUAMOUS EPITHELIAL CELL,UR FEW Squamous (<= Few); WBC,URINE >25 /HPF (0-5)
[2020-09-15] MEDS ORDERED: cefTRIAXone 1 GM VIAL IVP STA (20:00)
[2020-09-15 20:23] LABS: B. PARAPERTUSSIS- RESP PCR PAN NOT DETECTED; B. PERTUSSIS- RESP PCR PANEL NOT DETECTED; C. PNEUMONIAE- RESP PCR PANEL NOT DETECTED; CORONAVIRUS 229E-RESP PCR NOT DETECTED; CORONAVIRUS HKU1-RESP PCR NOT DETECTED; CORONAVIRUS NL63-RESP PCR NOT DETECTED; CORONAVIRUS OC43-RESP PCR NOT DETECTED; HUMAN METAPNEUMOVIRUS NOT DETECTED; INFLUENZA A- RESP PCR PANEL NOT DETECTED; INFLUENZA B - RESP PCR PANEL NOT DETECTED; M. PNEUMONIAE- RESP PCR PANEL NOT DETECTED; PARAINFLUENZA VIRUS 1 NOT DETECTED; PARAINFLUENZA VIRUS 2 NOT DETECTED; PARAINFLUENZA VIRUS 3 NOT DETECTED; PARAINFLUENZA VIRUS 4 NOT DETECTED; RHINOVIRUS/ENTEROVIRUS NOT DETECTED; RSV- RESP PCR PANEL NOT DETECTED; SARS-CoV-2 -RESP PCR PANEL NOT DETECTED
--- NOTE | 2020-09-15 20:43 | ED Physician Documentation ---
History of Present Illness - Stated complaint Stated Complaint: WEAK - Chief complaint Chief Complaint: General - History obtained from History obtained from: Patient, EMS - History of Present Illness Timing: Today Pain level max: 0 Pain level now: 0 - Additonal information Additional information: Patient is a 69-year-old female that is brought into the emergency department today by EMS. Her care facility states that she had a fever today and felt weak. T-max 102. Patient denies any cough or congestion. Is not currently on antibiotics. No abdominal pain. No vomiting. No diarrhea. Review of Systems Ten Systems: 10 systems reviewed and negative Constitutional: reports: Fever, Chills Ears: denies: Ear pain Nose: denies: Rhinorrhea / runny nose, Congestion Respiratory: denies: Cough GI: denies: Abdominal Pain, Nausea, Vomiting, Diarrhea : denies: Dysuria, Frequency, Hesitancy Skin: denies: Rash Musculoskeletal: denies: Neck pain, Back pain Neurologic: denies: Headache PD PAST MEDICAL HISTORY - Past Medical History Cardiovascular: Hypertension, Deep vein thrombosis, Atrial fibrillation Respiratory: Shortness of breath Neuro: None Endocrine/Autoimmune: Type 2 diabetes GI: GERD, GI bleed [employer]: None : Kidney stones HEENT: Chronic vision loss Psych: Depression, Anxiety Musculoskeletal: Osteoarthritis, Chronic back pain Derm: None - Past Surgical History Past Surgical History: Yes General: Cholecystectomy Ortho: Knee replacement, Other HEENT: Cataracts - Present Medications Home Medications: Ambulatory Orders Medication Instructions Recorded Confirmed lisinopriL [Lisinopril] 10 mg PO DAILY 03/23/15 07/19/20 Atorvastatin Calcium [Lipitor] 80 mg PO QPM 05/02/15 07/19/20 ARIPiprazole [Abilify] 5 mg PO QPM 07/19/20 07/19/20 Duloxetine HCl [Cymbalta] 60 mg PO DAILY 07/19/20 07/19/20 Gabapentin [Neurontin] 800 mg PO TID 07/19/20 07/19/20 Oxybutynin [Ditropan] 5 mg PO BID 07/19/20 07/19/20 Pantoprazole [Protonix] 40 mg PO BID 07/19/20 07/19/20 Potassium Chloride 40 meq PO DAILY 07/19/20 07/19/20 Solifenacin Succinate [Vesicare] 10 mg PO DAILY 07/19/20 07/19/20 Warfarin [Coumadin] 1.5 mg PO SUMOSA 07/19/20 07/19/20 Warfarin [Coumadin] 3 mg PO WETH 07/19/20 07/19/20 oxyCODONE [Roxicodone] 5 mg PO Q6H 07/19/20 07/19/20 Aspirin Chewable [St Abdiel 81 mg PO DAILY #30 tablet 07/29/20 Aspirin] Clopidogrel [Plavix] 75 mg PO DAILY 24 Days #24 tablet 07/29/20 Furosemide [Lasix] 40 mg PO DAILY 30 Days #30 07/29/20 07/19/20 Metoprolol Succinate [Toprol Xl] 25 mg PO BID 30 Days #60 tablet 07/29/20 Cefpodoxime Proxetil [Vantin] 100 mg PO Q12H #20 tablet 09/15/20 - Allergies Allergies/Adverse Reactions: Allergies Allergy/AdvReac Type Severity Reaction Status Date / Time phenobarbital Allergy Hives Verified 09/15/20 18:18 morphine AdvReac Intermediate Hallucinati Verified 09/15/20 18:18 ons doxycycline AdvReac Nausea Verified 09/15/20 18:18 - Social History Does the pt smoke?: No Smoking Status: Never smoker Does the pt drink ETOH?: No Does the pt have substance abuse?: Yes - Immunizations Immunizations are current?: Yes - POLST Patient has POLST: No PD ED PE NORMAL - Vitals Vital signs reviewed: Yes - General General: Alert and oriented X 3, No acute distress - HEENT HEENT: PERRL, Moist mucous membranes - Neck Neck: Supple, no meningeal sign - Cardiac Cardiac: RRR - Respiratory Respiratory: No respiratory distress, Clear bilaterally - Abdomen Abdomen: Soft, Non tender, Non distended - Back Back: No CVA TTP, No spinal TTP - Derm Derm: Warm and dry - Extremities Extremities: No edema, No calf tenderness / cord - Neuro Neuro: Alert and oriented X 3 Results - Vitals Vitals: Vital Signs - 24 hr 09/15/20 09/15/20 20:18 21:27 Temperature 37.2 C Heart Rate 92 78 Respiratory 18 17 Rate Blood Pressure 152/62 H 130/80 O2 Saturation 99 100 Oxygen O2 Source Room air - Labs Labs: Microbiology 09/15/20 18:45 Blood Culture - Preliminary Blood NO GROWTH AFTER 1 DAY 09/15/20 19:26 Urine Culture - Preliminary Urine,Catheterized 09/15/20 18:25 Blood Culture - Preliminary Blood - Left Arm Strep Agalactiae - (Group B) 09/15/20 18:25 Blood Culture (PCR) - Final Blood - Left Arm Laboratory Tests 09/15/20 09/15/20 09/15/20 18:25 18:25 18:25 WBC 11.8 H RBC 3.17 L Hgb 8.9 L Hct 28.4 L MCV 89.6 MCH 28.1 MCHC 31.3 L RDW 13.0 Plt Count 344 MPV 8.5 Neut # (Auto) 9.5 H Lymph # (Auto) 1.2 L [place] # (Auto) 0.9 Eos # (Auto) 0.1 Baso # (Auto) 0.1 Absolute Nucleated RBC 0.00 Nucleated RBC % 0.0 PT 22.4 H INR 2.1 H APTT 34.6 H Sodium 140 Potassium 4.0 Chloride 102 Carbon Dioxide 27 Anion Gap 11.0 BUN 16 Creatinine 1.1 H Estimated GFR (MDRD) 49 L Glucose 131 H Lactic Acid Calcium 8.8 Total Bilirubin 0.5 AST 14 ALT 10 Alkaline Phosphatase 94 B-Natriuretic Peptide Total Protein 7.7 Albumin 2.9 L Globulin 4.8 H Albumin/Globulin Ratio 0.6 L Lipase 16 L Urine Color Urine Clarity Urine pH Ur Specific [place] Urine Protein Urine Glucose (UA) Urine Ketones Urine Occult Blood Urine Nitrite Urine Bilirubin Urine Urobilinogen Ur Leukocyte Esterase Urine RBC Urine WBC Ur Squamous Epith Cells Urine Bacteria Ur Microscopic Review Urine Culture Comments Nasal Adenovirus (PCR) Nasal B. parapertussis DNA (PCR) Nasal Coronavir 229E PCR Nasal Coronavir HKU1 PCR Nasal Coronavir NL63 PCR Nasal Coronavir OC43 PCR Nasal Enterovir/Rhinovir PCR Nasal Influenza B PCR Nasal Influenza A PCR Nasal Parainfluen 1 PCR Nasal Parainfluen 2 PCR Nasal Parainfluen 3 PCR Nasal Parainfluen 4 PCR Nasal RSV (PCR) Nasal B.pertussis DNA PCR Nasal C.pneumoniae (PCR) Alexx Human Metapneumo PCR Nasal M.pneumoniae (PCR) Nasal SARS-CoV-2 (PCR) 09/15/20 09/15/20 09/15/20 18:25 18:25 19:26 WBC RBC Hgb Hct MCV MCH MCHC RDW Plt Count MPV Neut # (Auto) Lymph # (Auto) [place] # (Auto) Eos # (Auto) Baso # (Auto) Absolute Nucleated RBC Nucleated RBC % PT INR APTT Sodium Potassium Chloride Carbon Dioxide Anion Gap BUN Creatinine Estimated GFR (MDRD) Glucose Lactic Acid 0.8 Calcium Total Bilirubin AST ALT Alkaline Phosphatase B-Natriuretic Peptide 284 H Total Protein Albumin Globulin Albumin/Globulin Ratio Lipase Urine Color YELLOW Urine Clarity SL. CLOUDY Urine pH 6.5 Ur Specific [place] 1.015 Urine Protein NEGATIVE Urine Glucose (UA) NEGATIVE Urine Ketones NEGATIVE Urine Occult Blood TRACE-INTA Urine Nitrite POSITIVE H Urine Bilirubin NEGATIVE Urine Urobilinogen 0.2 (NORMAL) Ur Leukocyte Esterase MODERATE H Urine RBC 0-5 Urine WBC >25 H Ur Squamous Epith Cells FEW Squamous Urine Bacteria Many H Ur Microscopic Review INDICATED Urine Culture Comments INDICATED Nasal Adenovirus (PCR) Nasal B. parapertussis DNA (PCR) Nasal Coronavir 229E PCR Nasal Coronavir HKU1 PCR Nasal Coronavir NL63 PCR Nasal Coronavir OC43 PCR Nasal Enterovir/Rhinovir PCR Nasal Influenza B PCR Nasal Influenza A PCR Nasal Parainfluen 1 PCR Nasal Parainfluen 2 PCR Nasal Parainfluen 3 PCR Nasal Parainfluen 4 PCR Nasal RSV (PCR) Nasal B.pertussis DNA PCR Nasal C.pneumoniae (PCR) Alexx Human Metapneumo PCR Nasal M.pneumoniae (PCR) Nasal SARS-CoV-2 (PCR) 09/15/20 19:27 WBC RBC Hgb Hct MCV MCH MCHC RDW Plt Count MPV Neut # (Auto) Lymph # (Auto) [place] # (Auto) Eos # (Auto) Baso # (Auto) Absolute Nucleated RBC Nucleated RBC % PT INR APTT Sodium Potassium Chloride Carbon Dioxide Anion Gap BUN Creatinine Estimated GFR (MDRD) Glucose Lactic Acid Calcium Total Bilirubin AST ALT Alkaline Phosphatase B-Natriuretic Peptide Total Protein Albumin Globulin Albumin/Globulin Ratio Lipase Urine Color Urine Clarity Urine pH Ur Specific [place] Urine Protein Urine Glucose (UA) Urine Ketones Urine Occult Blood Urine Nitrite Urine Bilirubin Urine Urobilinogen Ur Leukocyte Esterase Urine RBC Urine WBC Ur Squamous Epith Cells Urine Bacteria Ur Microscopic Review Urine Culture Comments Nasal Adenovirus (PCR) NOT DETECTED Nasal B. parapertussis DNA (PCR) NOT DETECTED Nasal Coronavir 229E PCR NOT DETECTED Nasal Coronavir HKU1 PCR NOT DETECTED Nasal Coronavir NL63 PCR NOT DETECTED Nasal Coronavir OC43 PCR NOT DETECTED Nasal Enterovir/Rhinovir PCR NOT DETECTED Nasal Influenza B PCR NOT DETECTED Nasal Influenza A PCR NOT DETECTED Nasal Parainfluen 1 PCR NOT DETECTED Nasal Parainfluen 2 PCR NOT DETECTED Nasal Parainfluen 3 PCR NOT DETECTED Nasal Parainfluen 4 PCR NOT DETECTED Nasal RSV (PCR) NOT DETECTED Nasal B.pertussis DNA PCR NOT DETECTED Nasal C.pneumoniae (PCR) NOT DETECTED Alexx Human Metapneumo PCR NOT DETECTED Nasal M.pneumoniae (PCR) NOT DETECTED Nasal SARS-CoV-2 (PCR) NOT DETECTED - Rads (name of study) cxr Radiology: Prelim report reviewed, EMP read contemporaneously, See rad report (Suspect fluid overload/CHF, improved opacity in the right upper lobe. Cardiomegaly. Hiatal hernia.) PD MEDICAL DECISION MAKING - ED course Complexity details: reviewed results, re-evaluated patient, considered differential, d/w patient ED course: Patient is well-appearing, nontoxic. Afebrile. No acute findings on x-ray. No evidence of sepsis. Does appear to have a UTI. Given Rocephin here. Will place on antibiotics for home. No evidence of pneumonia. Patient counseled regarding signs and symptoms for which I believe and urgent re-evaluation would be necessary. Patient with good understanding of and agreement to plan and is comfortable going home at this time This document was made in part using voice recognition software. While efforts are made to proofread this document, sound alike and grammatical errors may occur. Departure - Departure Disposition: 01 Home, Self Care Clinical Impression: UTI (urinary tract infection) Qualifiers: Urinary tract infection type: acute cystitis Hematuria presence: without hematuria Qualified Code(s): N30.00 - Acute cystitis without hematuria Condition: Good Instructions: ED UTI Cystitis Female Follow-Up: Delio Manriquez DO [Primary Care Provider] - Within 1 week Prescriptions: Cefpodoxime Proxetil [Vantin] 100 mg PO Q12H #20 tablet Comments: Return if you worsen. Do not take your pantoprazole while you are taking the Cefpodoxime. Take all antibiotics until gone Discharge Date/Time: 09/15/20 21:27
[2020-09-15 21:29] VITALS: BP 130/80
== END 2020-09-15 21:27 | disposition home or self-care (01) ==
LOC: ED 18:07
DX: N30.00 Acute cystitis without hematuria (principal); I11.0 Hypertensive heart disease with heart failure; I50.9 Heart failure, unspecified; I48.91 Unspecified atrial fibrillation; Z79.01 Long term (current) use of anticoagulants; Z79.02 Long term (current) use of antithrombotics/antiplatelets; Z79.82 Long term (current) use of aspirin; E11.9 Type 2 diabetes mellitus without complications; K44.9 Diaphragmatic hernia without obstruction or gangrene; Z20.822 Contact with and (suspected) exposure to COVID-19
CPT/HCPCS: 0202U; 36415; 51701; 80053; 81001; 81003; 83605; 83690; 83880; 85025; 85610; 85730; 87040; 87077; 87086; 87150; 87181; 99284

== ENCOUNTER 2020-09-25 07:53 | Outpatient (CLI) | payer MEDICARE, BC ==
[2020-09-25 12:10] LABS: CREATININE,URINE 157.5 mg/dL; MICROALBUM/CREATININE RATIO,UR 5.1 ug/mg (<30.0); MICROALBUMIN,URINE 0.8 mg/dL (0-300.0)
[2020-09-25 12:18] LABS: CALCIUM 9.7 mg/dL (8.5-10.3); CREATININE 0.9 mg/dL (0.4-1.0); POTASSIUM 4.4 mmol/L (3.5-5.0)
[2020-09-25 12:22] LABS: ESTIMATED AVERAGE GLUCOSE 131 mg/dL (70-100); HEMOGLOBIN A1c% 6.2 % (4.27-6.07)
== END 2020-09-25 23:59 | disposition home or self-care (01) ==
LOC: LAB.N 07:53
PROVIDERS: ATTEND Family Medicine
DX: E11.9 Type 2 diabetes mellitus without complications (principal)
CPT/HCPCS: 36415; 80048; 82043; 82570; 83036

== ENCOUNTER 2020-10-14 20:56 | Outpatient (CLI) | payer MEDICARE, BC | END 2020-10-14 20:57 | disposition short-term general hospital (02) | LOC: EMS 20:56 | DX: R41.0 Disorientation, unspecified (principal); R50.9 Fever, unspecified | CPT/HCPCS: A0425; A0427 ==

== ENCOUNTER 2020-11-21 11:36 | Outpatient (CLI) | payer MEDICARE, BC | END 2020-11-21 11:37 | disposition EMS.NT | LOC: EMS 11:36 | DX: R79.1 Abnormal coagulation profile (principal) ==

== ENCOUNTER 2020-11-21 12:45 | Outpatient (CLI) | payer MEDICARE, BC ==
[2020-11-21 13:13] LABS: POTASSIUM 4.4 mmol/L (3.5-5.0)
[2020-11-21 13:16] LABS: CREATININE,URINE 41.6 mg/dL; MICROALBUM/CREATININE RATIO,UR 7.2 ug/mg (<30.0); MICROALBUMIN,URINE 0.3 mg/dL (0-300.0)
[2020-11-21 20:12] LABS: ESTIMATED AVERAGE GLUCOSE 143 mg/dL (70-100); HEMOGLOBIN A1c% 6.6 % (4.27-6.07)
== END 2020-11-21 12:46 | disposition home or self-care (01) ==
LOC: LAB 12:45
PROVIDERS: ATTEND Family Medicine
DX: E11.9 Type 2 diabetes mellitus without complications (principal)
CPT/HCPCS: 36415; 80048; 82043; 82570; 83036

== ENCOUNTER 2020-12-05 11:44 | Emergency (ER) | payer MEDICARE, BC ==
[2020-12-05] MEDS ORDERED: SODIUM CHLORIDE 0.9% 1,000 ML IV STA (12:21)
[2020-12-05] MEDS ORDERED: ONDANSETRON 4 MG/2 ML VIAL IVP STA (12:24)
--- NOTE | 2020-12-05 12:24 | ED Physician Documentation ---
History of Present Illness - Stated complaint Stated Complaint: HIGH BP - Chief complaint Chief Complaint: Heent - Additonal information Additional information: 69-year-old female presents the emergency department for evaluation of shortness of air, cough, congestion right ear pain and diarrhea that began yesterday. She also endorses a severe headache. Patient is on Coumadin secondary to history of DVT. She denies any recent falls or trauma. No unilateral leg swelling or calf pain tenderness. She is fully vaccinated for COVID-19. Review of Systems Constitutional: reports: Chills, Myalgias, Fatigue. denies: Fever Eyes: reports: Decreased vision Ears: reports: Ear pain. denies: Loss of hearing, Drainage/discharge Nose: reports: Rhinorrhea / runny nose, Congestion Throat: reports: Reviewed and negative Cardiac: reports: Chest pain / pressure. denies: Palpitations, Pedal edema, Calf pain Respiratory: reports: Dyspnea, Cough. denies: Hemoptysis, Wheezing GI: reports: Diarrhea. 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: None : Kidney stones HEENT: Chronic vision loss Psych: Depression, Anxiety Musculoskeletal: Osteoarthritis, Chronic back pain Derm: None - Past Surgical History Past Surgical History: Yes General: Cholecystectomy Ortho: Knee replacement, Other HEENT: Cataracts - Present Medications Home Medications: Ambulatory Orders Medication Instructions Recorded Confirmed lisinopriL [Lisinopril] 10 mg PO DAILY 03/23/15 07/19/20 Atorvastatin Calcium [Lipitor] 80 mg PO QPM 05/02/15 07/19/20 ARIPiprazole [Abilify] 5 mg PO QPM 07/19/20 07/19/20 Duloxetine HCl [Cymbalta] 60 mg PO DAILY 07/19/20 07/19/20 Gabapentin [Neurontin] 800 mg PO TID 07/19/20 07/19/20 Oxybutynin [Ditropan] 5 mg PO BID 07/19/20 07/19/20 Pantoprazole [Protonix] 40 mg PO BID 07/19/20 07/19/20 Potassium Chloride 40 meq PO DAILY 07/19/20 07/19/20 Solifenacin Succinate [Vesicare] 10 mg PO DAILY 07/19/20 07/19/20 Warfarin [Coumadin] 1.5 mg PO SUMO07/19/20 07/19/20 Warfarin [Coumadin] 3 mg PO 07/19/20 07/19/20 oxyCODONE [Roxicodone] 5 mg PO Q6H 07/19/20 07/19/20 Aspirin Chewable [St Abdiel 81 mg PO DAILY #30 tablet 07/29/20 Aspirin] Clopidogrel [Plavix] 75 mg PO DAILY 24 Days #24 tablet 07/29/20 Furosemide [Lasix] 40 mg PO DAILY 30 Days #30 07/29/20 07/19/20 Metoprolol Succinate [Toprol Xl] 25 mg PO BID 30 Days #60 tablet 07/29/20 Cefpodoxime Proxetil [Vantin] 100 mg PO Q12H #20 tablet 09/15/20 - Allergies Allergies/Adverse Reactions: Allergies Allergy/AdvReac Type Severity Reaction Status Date / Time phenobarbital Allergy Hives Verified 12/05/20 12:09 morphine AdvReac Intermediate Hallucinati Verified 12/05/20 12:09 ons doxycycline AdvReac Nausea Verified 12/05/20 12:09 - Social History Does the pt smoke?: No Smoking Status: Never smoker Does the pt drink ETOH?: No Does the pt have substance abuse?: Yes - Immunizations Immunizations are current?: Yes - POLST Patient has POLST: No PD ED PE EXPANDED - General General: Alert, No acute distress, Well developed/nourished - HEENT HEENT: PERRL, Ears normal, Nasal congestion, Pharynx normal, Pharyngeal erythema. No: Tonsillar exudate - Eyes Eyes: PERRL, Normal accommodation - Neck Neck: Supple w/out meningeal sx. No: Adenopathy - Cardiac Cardiac: Regular Rate. No: Murmur Present - Respiratory Respiratory: Clear to ausultation jenny. No: Distress, Labored - Abdomen Abdomen: Normal Bowel sounds. No: Tender to palpation - Derm Derm: Normal color, Warm and dry. No: Rash - Extremities Extremities: Normal - Neuro Neuro: Alert and Oriented X 3, CNII-XII intact - GCS Eye Opening: Spontaneous Motor: Obeys Commands Verbal: Oriented Total: 15 - Psych Psych: Normal Results - Vitals Vitals: Vital Signs - 24 hr 12/05/20 12/05/20 12/05/20 12:04 14:12 15:10 Temperature 36.6 C 36.9 C Heart Rate 92 99 99 Respiratory 16 20 18 Rate Blood Pressure 183/63 H 183/66 H 160/74 H O2 Saturation 96 98 95 Oxygen O2 Source Room air - EKG (time done) 1225 Rate: Rate (enter#) (93) Rhythm: NSR [place]: Normal Intervals: Normal MA QRS: Normal Ischemia: Normal ST segments Compare to prior EKG: Unchanged from prior EKG Computer interpretation: Agree with computer - Labs Labs: Laboratory Tests 12/05/20 12/05/20 12/05/20 12:38 12:38 12:38 WBC 8.0 RBC 4.23 Hgb 10.3 L Hct 34.7 L MCV 82.0 MCH 24.3 L MCHC 29.7 L RDW 15.9 H Plt Count 395 MPV 9.0 Neut # (Auto) 5.6 Lymph # (Auto) 1.6 [place] # (Auto) 0.6 Eos # (Auto) 0.1 Baso # (Auto) 0.1 Absolute Nucleated RBC 0.00 Nucleated RBC % 0.0 PT INR Sodium 140 Potassium 4.3 Chloride 103 Carbon Dioxide 24 Anion Gap 13.0 BUN 17 Creatinine 0.7 Estimated GFR (MDRD) 82 L Glucose 126 H Calcium 9.5 Total Bilirubin 0.7 AST 21 ALT 17 Alkaline Phosphatase 111 Troponin I High Sens 15.8 H* B-Natriuretic Peptide Total Protein 8.4 H Albumin 3.7 Globulin 4.7 H Albumin/Globulin Ratio 0.8 L Lipase 17 L Nasal Adenovirus (PCR) Nasal B. parapertussis DNA (PCR) Nasal Coronavir 229E PCR Nasal Coronavir HKU1 PCR Nasal Coronavir NL63 PCR Nasal Coronavir OC43 PCR Nasal Enterovir/Rhinovir PCR Nasal Influenza B PCR Nasal Influenza A PCR Nasal Parainfluen 1 PCR Nasal Parainfluen 2 PCR Nasal Parainfluen 3 PCR Nasal Parainfluen 4 PCR Nasal RSV (PCR) Nasal B.pertussis DNA PCR Nasal C.pneumoniae (PCR) Alexx Human Metapneumo PCR Nasal M.pneumoniae (PCR) Nasal SARS-CoV-2 (PCR) 12/05/20 12/05/20 12/05/20 12:38 12:38 13:13 WBC RBC Hgb Hct MCV MCH MCHC RDW Plt Count MPV Neut # (Auto) Lymph # (Auto) [place] # (Auto) Eos # (Auto) Baso # (Auto) Absolute Nucleated RBC Nucleated RBC % PT 13.9 H INR 1.3 H Sodium Potassium Chloride Carbon Dioxide Anion Gap BUN Creatinine Estimated GFR (MDRD) Glucose Calcium Total Bilirubin AST ALT Alkaline Phosphatase Troponin I High Sens B-Natriuretic Peptide 91 Total Protein Albumin Globulin Albumin/Globulin Ratio Lipase Nasal Adenovirus (PCR) NOT DETECTED Nasal B. parapertussis DNA (PCR) NOT DETECTED Nasal Coronavir 229E PCR NOT DETECTED Nasal Coronavir HKU1 PCR NOT DETECTED Nasal Coronavir NL63 PCR NOT DETECTED Nasal Coronavir OC43 PCR NOT DETECTED Nasal Enterovir/Rhinovir PCR NOT DETECTED Nasal Influenza B PCR NOT DETECTED Nasal Influenza A PCR NOT DETECTED Nasal Parainfluen 1 PCR NOT DETECTED Nasal Parainfluen 2 PCR NOT DETECTED Nasal Parainfluen 3 PCR NOT DETECTED Nasal Parainfluen 4 PCR NOT DETECTED Nasal RSV (PCR) NOT DETECTED Nasal B.pertussis DNA PCR NOT DETECTED Nasal C.pneumoniae (PCR) NOT DETECTED Alexx Human Metapneumo PCR NOT DETECTED Nasal M.pneumoniae (PCR) NOT DETECTED Nasal SARS-CoV-2 (PCR) NOT DETECTED 12/05/20 15:07 WBC RBC Hgb Hct MCV MCH MCHC RDW Plt Count MPV Neut # (Auto) Lymph # (Auto) [place] # (Auto) Eos # (Auto) Baso # (Auto) Absolute Nucleated RBC Nucleated RBC % PT INR Sodium Potassium Chloride Carbon Dioxide Anion Gap BUN Creatinine Estimated GFR (MDRD) Glucose Calcium Total Bilirubin AST ALT Alkaline Phosphatase Troponin I High Sens 17.3 H* B-Natriuretic Peptide Total Protein Albumin Globulin Albumin/Globulin Ratio Lipase Nasal Adenovirus (PCR) Nasal B. parapertussis DNA (PCR) Nasal Coronavir 229E PCR Nasal Coronavir HKU1 PCR Nasal Coronavir NL63 PCR Nasal Coronavir OC43 PCR Nasal Enterovir/Rhinovir PCR Nasal Influenza B PCR Nasal Influenza A PCR Nasal Parainfluen 1 PCR Nasal Parainfluen 2 PCR Nasal Parainfluen 3 PCR Nasal Parainfluen 4 PCR Nasal RSV (PCR) Nasal B.pertussis DNA PCR Nasal C.pneumoniae (PCR) Alexx Human Metapneumo PCR Nasal M.pneumoniae (PCR) Nasal SARS-CoV-2 (PCR) - Rads (name of study) Ct head Radiology: Final report received (No intracranial hemorrhage is seen. No significant intracranial abnormality is seen. Age-appropriate brain parenchymal volume loss and chronic small vessel ischemic change can be seen.) CXR Radiology: Final report received (Mild CHF/fluid overload.) PD MEDICAL DECISION MAKING - ED course Complexity details: reviewed results, d/w patient ED course: 69-year-old female presents the emergency department for evaluation of congestion headache right ear pain and diarrhea. She is vaccinated for Covid and her PCR today is negative. She did endorse some mild shortness of air. Chest x-ray suggested that she may have some CHF. Patient was given an additional 20 mg of Lasix here in the ER with improvement in her oxygenation. Initial high-sensitivity troponin was 15.8 and on repeat 17.3. This is static and likely does not reflect an ischemic disorder. EKG was nonischemic and patient is denying chest pain. This may be in the setting of a mild troponin leak/heart failure. Headache was improved with some Dilaudid in the emergency department. I suspect though that she does have a viral syndrome contributing to the diarrhea. No abdominal pain was elicited thus a CT of the abdomen was deferred. No leukocytosis noted. Patient is to be discharged home. Emergent return precautions were discussed. Departure - Departure Disposition: 01 Home, Self Care Clinical Impression: Subtherapeutic international normalized ratio (INR) Headache Qualifiers: Headache type: other headache syndrome Qualified Code(s): G44.89 - Other headache syndrome Congestive heart failure Qualifiers: Heart failure type: other Qualified Code(s): I50.9 - Heart failure, unspecified Diarrhea Qualifiers: Diarrhea type: unspecified type Qualified Code(s): R19.7 - Diarrhea, unspecified Condition: Stable Record reviewed to determine appropriate education?: Yes Comments: Gloria you were seen in the ER today for a headache, right ear pain sinus congestion and diarrhea. Initially we were concerned that you could have Covid. However your viral testing is negative For Covid. Your head CT did not show any worrisome findings. The chest x-ray suggested that you may be somewhat fluid overloaded. We did give you an extra dose of Lasix. Your INR today is 1.3. This is not therapeutic. I do recommend that you take an additional dose of the Coumadin and follow-up your INR very closely in 72 hours. If at any point you develop chest pain, have worsening symptoms, uncontrolled vomiting or develop a fever with chest pain and shortness of air then please return immediately to the ER
--- NOTE | 2020-12-05 12:36 | XRAY Report ---
PROCEDURE: Chest 1 View X-Ray INDICATIONS: Chest Pain TECHNIQUE: One view of the chest was acquired. COMPARISON: 09/15/2020 FINDINGS: Surgical changes and devices: None. Lungs and pleura: No pleural effusions or pneumothorax. There is cephalization of pulmonary vasculat ure and interstitial prominence compatible with CHF. Mediastinum: Mediastinal contours appear normal. Heart is enlarged. Large retrocardiac hiatal herni a. Bones and chest wall: No suspicious bony lesions. Overlying soft tissues appear unremarkable. IMPRESSION: Mild CHF/fluid overload. Reviewed by: La Chavarria MD, PhD on 12/05/2020 12:35 PM PDT Approved by: La Chavarria MD, PhD on 12/05/2020 12:35 PM PDT Station ID: [id number]
[2020-12-05 12:44] LABS: BASOPHILS # (AUTO) 0.1 10^3/uL (0.0-0.1); BASOPHILS % (AUTO) 0.6 %; EOSINOPHILS # (AUTO) 0.1 10^3/uL (0.0-0.7); EOSINOPHILS % (AUTO) 1.1 %; HCT - HEMATOCRIT 34.7 % (37.0-47.0); HGB - HEMOGLOBIN 10.3 g/dL (12.0-16.0); LYMPHOCYTES # (AUTO) 1.6 10^3/uL (1.5-3.5); LYMPHOCYTES % (AUTO) 20.4 %; MEAN CORPUSCULAR HEMOGLOBIN 24.3 pg (27.0-31.0); MEAN CORPUSCULAR HGB CONC 29.7 g/dL (32.0-36.0); MONOCYTES # (AUTO) 0.6 10^3/uL (0.0-1.0); MONOCYTES % (AUTO) 7.8 %; NEUTROPHILS # (AUTO) 5.6 10^3/uL (1.5-6.6); NEUTROPHILS % (AUTO) 69.8 %; PLT - PLATELET COUNT 395 10^3/uL (130-450); RED BLOOD COUNT 4.23 10^6/uL (4.20-5.40); RED CELL DISTRIBUTION WIDTH 15.9 % (12.0-15.0)
[2020-12-05 12:58] LABS: ALBUMIN 3.7 g/dL (3.2-5.5); ALBUMIN/GLOBULIN RATIO 0.8 (1.0-2.2); BILIRUBIN,TOTAL 0.7 mg/dL (0.2-1.0); CALCIUM 9.5 mg/dL (8.5-10.3); CREATININE 0.7 mg/dL (0.4-1.0); POTASSIUM 4.3 mmol/L (3.5-5.0); TOTAL PROTEIN 8.4 g/dL (6.7-8.2)
--- NOTE | 2020-12-05 13:02 | CT Report ---
PROCEDURE: HEAD WO INDICATIONS: POLO; anticoagulated on coumadin TECHNIQUE: Noncontrast 4.5 mm thick angled axial sections acquired from the foramen magnum to the vertex. For r adiation dose reduction, the following was used: automated exposure control, adjustment of mA and/or kV according to patient size. COMPARISON: 06/26/2020, 04/06/2019 FINDINGS: Image quality: There is streak artifact seen through the skull base. CSF spaces: Basal cisterns are patent. No extra-axial fluid collections. Ventricles are normal in size and shape. Brain: No midline shift. No intracranial masses or hemorrhage. [place]-white matter interface is norm al. Skull and face: Calvarium and visualized facial bones are intact, without suspicious lesions. Sinuses: Visualized sinuses and mastoids are clear. IMPRESSION: No intracranial hemorrhage is seen. No significant intracranial abnormality is seen. Age-appropriate brain parenchymal volume loss and chronic small vessel ischemic change can be seen. No significant change from the prior. Reviewed by: Frantz Harvey MD on 12/05/2020 12:00 PM JESUS MANUEL Approved by: Frantz Harvey MD on 12/05/2020 12:00 PM [facility] Station ID: [id number]
[2020-12-05 13:15] LABS: INR 1.3 (0.8-1.2); PT - PROTHROMBIN TIME 13.9 secs (9.9-12.6)
[2020-12-05] MEDS ORDERED: FUROSEMIDE 20 MG/2 ML VIAL IVP STA (13:26)
[2020-12-05] MEDS ORDERED: HYDROmorphone 1 MG/ML CARPUJECT IVP STA (13:56)
[2020-12-05 14:42] LABS: B. PARAPERTUSSIS- RESP PCR PAN NOT DETECTED; B. PERTUSSIS- RESP PCR PANEL NOT DETECTED; C. PNEUMONIAE- RESP PCR PANEL NOT DETECTED; CORONAVIRUS 229E-RESP PCR NOT DETECTED; CORONAVIRUS HKU1-RESP PCR NOT DETECTED; CORONAVIRUS NL63-RESP PCR NOT DETECTED; CORONAVIRUS OC43-RESP PCR NOT DETECTED; HUMAN METAPNEUMOVIRUS NOT DETECTED; INFLUENZA A- RESP PCR PANEL NOT DETECTED; INFLUENZA B - RESP PCR PANEL NOT DETECTED; M. PNEUMONIAE- RESP PCR PANEL NOT DETECTED; PARAINFLUENZA VIRUS 1 NOT DETECTED; PARAINFLUENZA VIRUS 2 NOT DETECTED; PARAINFLUENZA VIRUS 3 NOT DETECTED; PARAINFLUENZA VIRUS 4 NOT DETECTED; RHINOVIRUS/ENTEROVIRUS NOT DETECTED; RSV- RESP PCR PANEL NOT DETECTED; SARS-CoV-2 -RESP PCR PANEL NOT DETECTED
[2020-12-05 16:09] VITALS: BP 156/84
== END 2020-12-05 16:09 | disposition home or self-care (01) ==
LOC: ED 11:44
DX: G44.89 Other headache syndrome (principal); I50.9 Heart failure, unspecified; I11.0 Hypertensive heart disease with heart failure; Z86.718 Personal history of other venous thrombosis and embolism; Z79.01 Long term (current) use of anticoagulants; I48.91 Unspecified atrial fibrillation; E11.9 Type 2 diabetes mellitus without complications; R19.7 Diarrhea, unspecified; Z20.822 Contact with and (suspected) exposure to COVID-19
CPT/HCPCS: 36415; 70450; 71045; 80053; 83690; 83880; 84484; 85025; 85610; 87631; 93005; 96374; 96375; 99284; J1170; 0202U

== ENCOUNTER 2021-01-01 08:47 | Outpatient (CLI) | payer MEDICARE, BC ==
--- NOTE | 2021-01-01 10:01 | SLEEP CARE CONSULTATION ---
Information from patient questionnaire entered by Mildred Toro. I have reviewed and concur with the information entered by Mildred Toro. This document represents the service I personally performed and the decisions made by me, Carmen Valerio ARNP. History of Present Illness Service Date and Time: 01/01/2021 0847 Reason for Visit: New patient Chief Complaint: reports: Insomnia, Unrefreshed sleep, Excessive daytime sleepiness, Fatigue, Frequent awakenings at night. denies: Snoring, Observed pauses in breathing Date of Onset: 10 years Usual bedtime: 11 pm Time it takes to fall asleep: right away Snores at night: No Observed to quit breathing while asleep: No Sleeps alone due to snoring: No Number of times waking at night: 1, and can't go back to sleep Reasons for waking at night: reports: Pain, Bathroom, Other (unknown reason) Toss, Turn, or Twitch while sleeping: No Recalls having dreams: No Usually gets out of bed at: 12:30 am Feels refreshed in the morning: No Morning headache: No Sleepy or fatigued during the day: Yes Ever fallen asleep while driving: No (no drowsy driving) Takes day naps: Yes (occasionally) Dreams during day naps: No Prior sleep studies: No Additional HPI information: I had the pleasure of seeing BRIANA CRUZ today regarding the possibility of her having a sleep disorder. Her current complaints are fatigue, frequent night awakenings and insomnia. She is accompanied by her daughter Jana today. She states she does not sleep at night. She will got to sleep about 11 PM then wakes up about [id number] AM. She cannot return to sleep and will then sit awake for the night. She sleeps in a recliner due to her "bad back" and has for many years. She states doesn't know if she snores. She has never been told that she snores or that she has any pauses in breathing. She states that she has some sinus issues with congestion. She states her nose is small and she "talks funny" through her nose. 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 - Parasomnia Symptoms Ever been unable to move upon waking from sleep: No Walks in sleep: No Talks in sleep: No Ever acted out dreams in sleep: No Ever felt weak in the knees when startled or emotional: No Bothered by creepy, crawly, restless sensations in legs: Yes (restless due to chronic pain 2nd to Charcot disease) Problems with memory or concentration: Yes Subjective Initial [place] Sleepiness Scale score: 12 (in 2020) Past Medical History Past Medical History: reports: Hypertension, Congestive Heart Failure, Diabetes (PRE), Arthritis, Coronary Heart Disease, Impotence, Depression, GERD, Other (Charcot- Gia-tooth disease; 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 Patient is / and lives in [place]. Have you smoked in the past 12 months: No Cigarettes per day (20/pack): 10 Years of smokin Quit date: 1989 Smoking Pack Years: 9.0 Alcohol use: No Caffeine use: Yes Caffeine amount and frequency: 3 cups per day Family History Family history of sleep disordered breathing: Yes Family Hx Sleep Apnea: Other: Snoring (daughter) Allergies and Home Medications Drug allergies reviewed: Yes (phenobarbital, morphine, doxycycline) Home medication list reviewed: Yes (see list in chart) Review of Systems Cardiovascular: reports: high blood pressure, leg or foot swelling, have to sleep sitting up Gastrointestinal: reports: heartburn, difficulty swallowing Urinary: reports: incontinence Neurological: reports: gait or balance problems Psychiatric: reports: depression Ear/Nose/Throat: reports: sinus problems. denies: injury to nose, tonsillectomy Musculoskeletal: reports: joint pain, neck pain, back pain, joint swelling, muscle pain or cramping, mobility problems Immunologic: denies: allergies to food or environment Physical Exam Blood Pressure: 137/72 Cuff size: wrist Heart Rate: 95 O2 Saturation: 95 Height: 5 ft 8 in Weight: 225 lb (measured at home) Body Mass Index: 34.2 BMI Classification: Obese Neck circumference: 15 (inches) Mouth and throat: narrow oropharynx Soft palate: long Uvula: normal Uvula visualization: 50% Mallampati Class II Tongue: enlarged in size with teeth carranza on lateral edges Tonsils: 1+ Neck: normal w/o lymphadenopathy or thyromegaly Heart: regular rate and rhythm, murmur Lungs: clear bilaterally Impression and Plan 1. Suspected Obstructive Sleep Apnea-Hypopnea Syndrome, as suggested by a history of frequent awakening during the night, unrefreshed sleep, cognitive impairment, and excessive daytime sleepiness. Patient also has a history of diabetes, hypertension, CHF and recent heart attack. Narrow oropharynx and obesity are common predisposing factors for obstructive sleep apnea-hypopnea syndrome. I recommend proceeding to polysomnography to confirm the diagnosis and to assess severity. If the patient has significant sleep disordered breathing, a manual CPAP titration study will also be performed to find the optimal treatment pressure. I informed the patient of what the sleep studies involve and after some discussion, obtained agreement to proceed. The pathophysiology of obstructive sleep apnea-hypopnea syndrome was discussed with the patient and health risks of cardiovascular and cerebrovascular disease if not treated. Risks of drowsy driving discussed in detail and patient advised to avoid long distance driving and to basting puller at the first sign of drowsiness. Patient agreed to plan. * Schedule polysomnography +- manual CPAP titration study and return in 1-2 weeks after the study to discuss result and initiate therapy. * Avoid long distance driving or driving when feeling sleepy. * Avoid alcohol, sedative and muscle relaxant around bedtime. * Attempt to lose weight. * Review instructions provided by trained office staff on how to prepare for the sleep study. * Return for follow-up after sleep study completed. Counseling Topics: Weight loss health impact Visit Type: In Office Other Participants: Child (daughter Jana) Time Spent with Patient (minutes): 30 Provider Statement: I spent 100% of the Face to Face Visit with the patient with greater than 50% spent counseling the patient and coordination of care.
[2021-01-01 10:02] VITALS: BP 137/72
== END 2021-01-01 08:48 | disposition home or self-care (01) ==
LOC: SC 08:47
PROVIDERS: ATTEND Nurse Practitioner Family
DX: G47.10 Hypersomnia, unspecified (principal); R41.89 Other symptoms and signs involving cognitive functions and awareness; G47.8 Other sleep disorders; R06.83 Snoring; E66.9 Obesity, unspecified; Z68.34 Body mass index [BMI] 34.0-34.9, adult
CPT/HCPCS: 99203; G0463; 99212

== ENCOUNTER 2021-01-02 16:42 | Outpatient (CLI) | payer MEDICARE, BC | END 2021-01-02 23:59 | disposition home or self-care (01) | LOC: LAB 16:42 | PROVIDERS: ATTEND Family Medicine | DX: L03.116 Cellulitis of left lower limb (principal) | CPT/HCPCS: 87070; 87077; 87205 ==

== ENCOUNTER 2021-01-10 13:42 | Outpatient (CLI) | payer MEDICARE, BC | END 2021-01-10 13:43 | disposition short-term general hospital (02) | LOC: EMS 13:42 | DX: R51.9 Headache, unspecified (principal) | CPT/HCPCS: A0425; A0429 ==

== ENCOUNTER 2021-01-10 14:03 | Emergency (ER) | payer MEDICARE, BC ==
[2021-01-10] MEDS ORDERED: PROMETHAZINE INJ 25 MG in SODIUM CHLORIDE 0.9% 50 ML IV STA (14:27)
[2021-01-10] MEDS ORDERED: diphenhydrAMINE INJ 50 MG/ML VIAL IVP STA (14:27)
[2021-01-10] MEDS ORDERED: KETOROLAC 30 MG/ML VIAL IVP STA (14:27)
[2021-01-10] MEDS ORDERED: PROMETHAZINE 25 MG/1 ML VIAL ONE (14:42)
--- NOTE | 2021-01-10 14:42 | ED Physician Documentation ---
PD HPI HEADACHE - Stated complaint Stated Complaint: HEADACHE - Chief complaint Chief Complaint: Neuro - History obtained from History obtained from: Patient - History of Present Illness Timing - onset: How many days ago (2) Timing - onset during: Rest Timing - duration: Days (2) Timing - details: Waxing and waning Pain level max: 7 Pain level now: 6 Location: Front Quality: Aching Associated symptoms: No: Fever, Stiff neck, Nausea, Vomiting, Weakness, Numbness, Syncope, Seizure, Eye pain, Vision changes Improved by: Rest, Dark room, Quiet Worsened by: Light, Noise - Additional information Additional information: 70-year-old female states she developed a headache about 2 days ago, comes and goes. Better with Tylenol. Worse with light and sound. Similar to prior headaches. Denies any fall or trauma. No fevers. No chills. 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 : Kidney stones HEENT: Chronic vision loss Psych: Depression, Anxiety Musculoskeletal: Osteoarthritis, Chronic back pain Derm: None - Past Surgical History Past Surgical History: Yes General: Cholecystectomy Ortho: Knee replacement, Other HEENT: Cataracts - Present Medications Home Medications: Ambulatory Orders Medication Instructions Recorded Confirmed lisinopriL [Lisinopril] 10 mg PO DAILY 03/23/15 07/19/20 Atorvastatin Calcium [Lipitor] 80 mg PO QPM 05/02/15 07/19/20 ARIPiprazole [Abilify] 5 mg PO QPM 07/19/20 07/19/20 Duloxetine HCl [Cymbalta] 60 mg PO DAILY 07/19/20 07/19/20 Gabapentin [Neurontin] 800 mg PO TID 07/19/20 07/19/20 Oxybutynin [Ditropan] 5 mg PO BID 07/19/20 07/19/20 Pantoprazole [Protonix] 40 mg PO BID 07/19/20 07/19/20 Potassium Chloride 40 meq PO DAILY 07/19/20 07/19/20 Solifenacin Succinate [Vesicare] 10 mg PO DAILY 07/19/20 07/19/20 Warfarin [Coumadin] 1.5 mg PO SUMO07/19/20 07/19/20 Warfarin [Coumadin] 3 mg PO WETH 07/19/20 07/19/20 oxyCODONE [Roxicodone] 5 mg PO Q6H 07/19/20 07/19/20 Aspirin Chewable [St Abdiel 81 mg PO DAILY #30 tablet 07/29/20 Aspirin] Clopidogrel [Plavix] 75 mg PO DAILY 24 Days #24 tablet 07/29/20 Furosemide [Lasix] 40 mg PO DAILY 30 Days #30 07/29/20 07/19/20 Metoprolol Succinate [Toprol Xl] 25 mg PO BID 30 Days #60 tablet 07/29/20 Cefpodoxime Proxetil [Vantin] 100 mg PO Q12H #20 tablet 09/15/20 - Allergies Allergies/Adverse Reactions: Allergies Allergy/AdvReac Type Severity Reaction Status Date / Time phenobarbital Allergy Hives Verified 12/05/20 12:09 morphine AdvReac Intermediate Hallucinati Verified 12/05/20 12:09 ons doxycycline AdvReac Nausea Verified 12/05/20 12:09 - Social History Does the pt smoke?: No Smoking Status: Never smoker Does the pt drink ETOH?: No Does the pt have substance abuse?: Yes - Immunizations Immunizations are current?: Yes - POLST Patient has POLST: No PD ED PE NORMAL - Vitals Vital signs reviewed: Yes - General General: Alert and oriented X 3, No acute distress, Well developed/nourished - HEENT HEENT: Atraumatic, PERRL, EOMI, Ears normal, Moist mucous membranes, Pharynx benign - Neck Neck: Supple, no meningeal sign - Cardiac Cardiac: RRR, Strong equal pulses - Respiratory Respiratory: No respiratory distress, Clear bilaterally - Abdomen Abdomen: Soft, Non tender, Non distended - Derm Derm: Warm and dry - Extremities Extremities: No edema - Neuro Neuro: Alert and oriented X 3, 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 Patient feels much better. Normal neurological exam. Normal cerebellar test. NIH stroke scale of 0. No indication for head CT. We will have the patient follow-up with her doctor for further care. Patient counseled regarding signs and symptoms for which I believe and urgent re-evaluation would be necessary. Patient with good understanding of and agreement to plan and is comfortable going home at this time This document was made in part using voice recognition software. While efforts are made to proofread this document, sound alike and grammatical errors may occur. Departure - Departure Disposition: 01 Home, Self Care Clinical Impression: Headache Qualifiers: Headache type: unspecified Headache chronicity pattern: unspecified pattern Intractability: not intractable Qualified Code(s): R51.9 - Headache, unspecified Condition: Good Instructions: ED Cephalgia Unspecified Follow-Up: Delio Manriquez DO [Primary Care Provider] - Within 1 week Comments: Please follow-up with your doctor for further care. Go home and rest today. The headache should improve with the medication you were given. Discharge Date/Time: 01/10/21 16:50
[2021-01-10 16:35] VITALS: BP 168/134
[2021-01-10] MEDS ORDERED: DROPERIDOL 5 MG/2 ML VIAL IVP STA (16:35)
== END 2021-01-10 16:50 | disposition home or self-care (01) ==
LOC: ED 14:03
DX: R51.9 Headache, unspecified (principal); E11.9 Type 2 diabetes mellitus without complications; I48.91 Unspecified atrial fibrillation; Z79.01 Long term (current) use of anticoagulants; I10 Essential (primary) hypertension; Z86.718 Personal history of other venous thrombosis and embolism
CPT/HCPCS: 96365; 96375; 99284; 99285; J1200; J7040

== ENCOUNTER 2021-02-14 08:00 | Outpatient (CLI) | payer MEDICARE, BC | END 2021-02-14 23:59 | disposition home or self-care (01) | LOC: LAB.N 08:00 | PROVIDERS: ATTEND Family Medicine | DX: I48.0 Paroxysmal atrial fibrillation (principal); I63.9 Cerebral infarction, unspecified; I82.509 Chronic embolism and thrombosis of unspecified deep veins of unspecified lower extremity; Z79.01 Long term (current) use of anticoagulants ==

== ENCOUNTER 2021-02-21 08:00 | Outpatient (CLI) | payer MEDICARE, BC | END 2021-02-21 23:59 | LOC: LAB.N 08:00 | PROVIDERS: ATTEND Family Medicine | DX: I48.0 Paroxysmal atrial fibrillation (principal); Z79.01 Long term (current) use of anticoagulants; I63.9 Cerebral infarction, unspecified | CPT/HCPCS: 36416; 85610 ==

== ENCOUNTER 2021-03-05 08:00 | Outpatient (CLI) | payer MEDICARE, BC | END 2021-03-05 23:59 | disposition home or self-care (01) | LOC: LAB.N 08:00 | PROVIDERS: ATTEND Family Medicine | DX: I48.0 Paroxysmal atrial fibrillation (principal); I63.9 Cerebral infarction, unspecified; Z79.01 Long term (current) use of anticoagulants | CPT/HCPCS: 36415; 85610 ==

== ENCOUNTER 2021-03-19 08:00 | Outpatient (CLI) | payer MEDICARE, BC | END 2021-03-19 23:59 | disposition home or self-care (01) | LOC: LAB.N 08:00 | PROVIDERS: ATTEND Family Medicine | DX: I48.0 Paroxysmal atrial fibrillation (principal); I63.9 Cerebral infarction, unspecified; Z79.01 Long term (current) use of anticoagulants ==

== ENCOUNTER 2021-03-28 08:00 | Outpatient (CLI) | payer MEDICARE, BC | END 2021-03-28 23:59 | disposition home or self-care (01) | LOC: LAB.WCP 08:00 | PROVIDERS: ATTEND Family Medicine | DX: I48.0 Paroxysmal atrial fibrillation (principal); I63.9 Cerebral infarction, unspecified; I82.509 Chronic embolism and thrombosis of unspecified deep veins of unspecified lower extremity; Z79.01 Long term (current) use of anticoagulants ==

== ENCOUNTER 2021-05-02 08:00 | Outpatient (CLI) | payer MEDICARE, BC | END 2021-05-02 23:59 | disposition home or self-care (01) | LOC: LAB.N 08:00 | PROVIDERS: ATTEND Family Medicine | DX: I48.0 Paroxysmal atrial fibrillation (principal); I82.509 Chronic embolism and thrombosis of unspecified deep veins of unspecified lower extremity; Z79.01 Long term (current) use of anticoagulants; Z86.79 Personal history of other diseases of the circulatory system ==

== ENCOUNTER 2021-05-07 08:00 | Outpatient (CLI) | payer MEDICARE, BC | END 2021-05-07 23:59 | LOC: LAB.N 08:00 | PROVIDERS: ATTEND Family Medicine | DX: L03.115 Cellulitis of right lower limb (principal) | CPT/HCPCS: 87070; 87077; 87205 ==

== ENCOUNTER 2021-05-26 08:00 | Outpatient (CLI) | payer MEDICARE, BC | END 2021-05-26 23:59 | disposition home or self-care (01) | LOC: LAB.WCP 08:00 | PROVIDERS: ATTEND Nurse Practitioner Family | DX: I48.0 Paroxysmal atrial fibrillation (principal); I82.509 Chronic embolism and thrombosis of unspecified deep veins of unspecified lower extremity; Z79.01 Long term (current) use of anticoagulants; Z86.79 Personal history of other diseases of the circulatory system ==

== ENCOUNTER 2021-05-30 08:48 | Outpatient (CLI) | payer MEDICARE, BC | END 2021-05-30 23:59 | disposition home or self-care (01) | LOC: LAB.N 08:48 | PROVIDERS: ATTEND Family Medicine | DX: I48.0 Paroxysmal atrial fibrillation (principal); Z86.79 Personal history of other diseases of the circulatory system; I82.509 Chronic embolism and thrombosis of unspecified deep veins of unspecified lower extremity; Z79.01 Long term (current) use of anticoagulants | CPT/HCPCS: 85610 ==

== ENCOUNTER 2021-06-04 08:00 | Outpatient (CLI) | payer MEDICARE, BC ==
--- NOTE | 2021-06-04 14:46 | XRAY Report ---
PROCEDURE: Cervical Spine 2 View INDICATIONS: NECK PX WITH CLICKING SOUND WHEN MOVING TECHNIQUE: 2 view(s) of the cervical spine were acquired. COMPARISON: None. FINDINGS: Bones: No fractures or dislocations to the T2 level. No odontoid view. Lateral masses of C1 not eval uated. Moderate to severe cervical spondylitic change. Prominent right cervical facet arthropathy. No suspicious bony lesions. Soft tissues: No prevertebral soft tissue swelling. IMPRESSION: Moderate to severe cervical spondylosis. Prominent right cervical facet arthropathy. Reviewed by: Wild Meadows MD on 06/04/2021 2:44 PM PST Approved by: Wild Meadows MD on 06/04/2021 2:44 PM PST Station ID: [id number]
== END 2021-06-04 23:59 | disposition home or self-care (01) ==
LOC: DI.N 08:00
PROVIDERS: ATTEND Registered Nurse
DX: M47.812 Spondylosis without myelopathy or radiculopathy, cervical region (principal)

== ENCOUNTER 2021-06-11 08:00 | Outpatient (CLI) | payer MEDICARE, BC | END 2021-06-11 23:59 | disposition home or self-care (01) | LOC: LAB.N 08:00 | PROVIDERS: ATTEND Family Medicine | DX: I48.0 Paroxysmal atrial fibrillation (principal); Z79.01 Long term (current) use of anticoagulants; Z86.79 Personal history of other diseases of the circulatory system ==

== ENCOUNTER 2021-06-13 08:00 | Outpatient (CLI) | payer MEDICARE, BC | END 2021-06-13 23:59 | disposition home or self-care (01) | LOC: LAB.N 08:00 | PROVIDERS: ATTEND Family Medicine | DX: I48.0 Paroxysmal atrial fibrillation (principal); Z79.01 Long term (current) use of anticoagulants; Z86.79 Personal history of other diseases of the circulatory system ==

== ENCOUNTER 2021-06-20 08:00 | Outpatient (CLI) | payer MEDICARE, BC | END 2021-06-20 23:59 | disposition home or self-care (01) | LOC: LAB.WCP 08:00 | PROVIDERS: ATTEND Nurse Practitioner Family | DX: I48.0 Paroxysmal atrial fibrillation (principal); I82.509 Chronic embolism and thrombosis of unspecified deep veins of unspecified lower extremity; Z79.01 Long term (current) use of anticoagulants; Z86.79 Personal history of other diseases of the circulatory system ==

== ENCOUNTER 2021-07-09 08:00 | Outpatient (CLI) | payer MEDICARE, BC | END 2021-07-09 23:59 | disposition home or self-care (01) | LOC: LAB.N 08:00 | PROVIDERS: ATTEND Family Medicine | DX: I48.0 Paroxysmal atrial fibrillation (principal); I82.509 Chronic embolism and thrombosis of unspecified deep veins of unspecified lower extremity; Z79.01 Long term (current) use of anticoagulants; Z86.79 Personal history of other diseases of the circulatory system ==

== ENCOUNTER 2021-07-14 08:00 | Outpatient (CLI) | payer MEDICARE, BC | END 2021-07-14 23:59 | disposition home or self-care (01) | LOC: LAB.N 08:00 | PROVIDERS: ATTEND Family Medicine | DX: I48.0 Paroxysmal atrial fibrillation (principal); Z79.01 Long term (current) use of anticoagulants; Z86.79 Personal history of other diseases of the circulatory system ==

== ENCOUNTER 2021-07-30 08:00 | Outpatient (CLI) | payer MEDICARE, BC | END 2021-07-30 23:59 | disposition home or self-care (01) | LOC: LAB.WCP 08:00 | PROVIDERS: ATTEND Family Medicine | DX: I48.0 Paroxysmal atrial fibrillation (principal); I82.509 Chronic embolism and thrombosis of unspecified deep veins of unspecified lower extremity; Z79.01 Long term (current) use of anticoagulants; Z86.79 Personal history of other diseases of the circulatory system ==

== ENCOUNTER 2021-08-06 08:00 | Outpatient (CLI) | payer MEDICARE, BC | END 2021-08-06 23:59 | disposition home or self-care (01) | LOC: LAB.N 08:00 | PROVIDERS: ATTEND Family Medicine | DX: I48.0 Paroxysmal atrial fibrillation (principal); Z79.01 Long term (current) use of anticoagulants; I80.9 Phlebitis and thrombophlebitis of unspecified site; Z86.73 Personal history of transient ischemic attack (TIA), and cerebral infarction without residual deficits ==

== ENCOUNTER 2021-09-10 08:00 | Outpatient (CLI) | payer MEDICARE, BC | END 2021-09-10 08:01 | disposition home or self-care (01) | LOC: LAB.N 08:00 | PROVIDERS: ATTEND Family Medicine | DX: I48.0 Paroxysmal atrial fibrillation (principal); I82.509 Chronic embolism and thrombosis of unspecified deep veins of unspecified lower extremity; Z79.01 Long term (current) use of anticoagulants; Z86.79 Personal history of other diseases of the circulatory system ==

== ENCOUNTER → 2021-09-29 | Outpatient (CLI) | payer MEDICARE, BC | LOC: LAB.WCP 08:00 | PROVIDERS: ATTEND Family Medicine | DX: I48.0 Paroxysmal atrial fibrillation (principal); I82.509 Chronic embolism and thrombosis of unspecified deep veins of unspecified lower extremity; Z79.01 Long term (current) use of anticoagulants; Z86.79 Personal history of other diseases of the circulatory system ==

== ENCOUNTER 2021-10-05 11:35 | Outpatient (CLI) | payer MEDICARE, BC | END 2021-10-05 11:36 | disposition critical access hospital (66) | LOC: EMS 11:35 | DX: R51.9 Headache, unspecified (principal); R06.02 Shortness of breath; R11.0 Nausea; R19.7 Diarrhea, unspecified; I10 Essential (primary) hypertension | CPT/HCPCS: A0425; A0427 ==

== ENCOUNTER 2021-10-05 12:02 | Emergency (ER) | payer MEDICARE, BC ==
[2021-10-05] MEDS ORDERED: SODIUM CHLORIDE 0.9% 1,000 ML IV STA (12:33)
[2021-10-05] MEDS ORDERED: ONDANSETRON 4 MG/2 ML VIAL IVP STA (12:33)
[2021-10-05] MEDS ORDERED: ACETAMINOPHEN 325 MG TABLET PO STA (12:34)
--- NOTE | 2021-10-05 12:38 | ED Physician Documentation ---
History of Present Illness - Stated complaint Stated Complaint: SOA - Chief complaint Chief Complaint: General - History obtained from History obtained from: Patient, EMS - History of Present Illness Timing: How many days ago (3) Pain level max: 3 Pain level now: 3 - Additonal information Additional information: 70-year-old female presents to the emergency department complaint of diarrhea for the past 3 days. She states 3-4 times a day. Nonbloody. Mild abdominal cramping. Some nausea but no vomiting. Her daughter was concerned about dehydration and so called 911 today. No fevers. No chills. No recent antibiotics. Nothing seems to make it better or worse. Denies any shortness of breath or chest pain to me contrary to the triage note. She has not been able to keep her home medications down because of nausea. She still is insistent that she has not vomited. She also complains of a mild generalized headache. Gradual onset. Requesting Tylenol. Similar to usual headache Review of Systems Ten Systems: 10 systems reviewed and negative Constitutional: denies: Fever, Chills Cardiac: denies: Chest pain / pressure Respiratory: denies: Dyspnea, Cough GI: reports: Nausea, Diarrhea. denies: Vomiting : reports: Frequency. 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 : Kidney stones HEENT: Chronic vision loss Psych: Depression, Anxiety Musculoskeletal: Osteoarthritis, Chronic back pain Derm: None - Past Surgical History Past Surgical History: Yes General: Cholecystectomy Ortho: Knee replacement, Other HEENT: Cataracts - Present Medications Home Medications: Ambulatory Orders Medication Instructions Recorded Confirmed lisinopriL [Lisinopril] 10 mg PO DAILY 03/23/15 07/19/20 Atorvastatin Calcium [Lipitor] 80 mg PO QPM 05/02/15 07/19/20 ARIPiprazole [Abilify] 5 mg PO QPM 07/19/20 07/19/20 Duloxetine HCl [Cymbalta] 60 mg PO DAILY 07/19/20 07/19/20 Gabapentin [Neurontin] 800 mg PO TID 07/19/20 07/19/20 Oxybutynin [Ditropan] 5 mg PO BID 07/19/20 07/19/20 Pantoprazole [Protonix] 40 mg PO BID 07/19/20 07/19/20 Potassium Chloride 40 meq PO DAILY 07/19/20 07/19/20 Solifenacin Succinate [Vesicare] 10 mg PO DAILY 07/19/20 07/19/20 Warfarin [Coumadin] 1.5 mg PO SUMO07/19/20 07/19/20 Warfarin [Coumadin] 3 mg PO WETH 07/19/20 07/19/20 oxyCODONE [Roxicodone] 5 mg PO Q6H 07/19/20 07/19/20 Aspirin Chewable [St Abdiel 81 mg PO DAILY #30 tablet 07/29/20 Aspirin] Clopidogrel [Plavix] 75 mg PO DAILY 24 Days #24 tablet 07/29/20 Furosemide [Lasix] 40 mg PO DAILY 30 Days #30 07/29/20 07/19/20 Metoprolol Succinate [Toprol Xl] 25 mg PO BID 30 Days #60 tablet 07/29/20 Cefpodoxime Proxetil [Vantin] 100 mg PO Q12H #20 tablet 09/15/20 Cefpodoxime Proxetil [Vantin] 100 mg PO Q12H #14 tablet 10/05/21 - Allergies Allergies/Adverse Reactions: Allergies Allergy/AdvReac Type Severity Reaction Status Date / Time phenobarbital Allergy Hives Verified 10/05/21 12:06 morphine AdvReac Intermediate Hallucinati Verified 10/05/21 12:06 ons doxycycline AdvReac Nausea Verified 10/05/21 12:06 - Social History Does the pt smoke?: No Smoking Status: Never smoker Does the pt drink ETOH?: No Does the pt have substance abuse?: Yes - Immunizations Immunizations are current?: Yes - POLST Patient has POLST: No PD ED PE NORMAL - Vitals Vital signs reviewed: Yes - General General: Alert and oriented X 3, No acute distress, Well developed/nourished - HEENT HEENT: PERRL, Moist mucous membranes, Pharynx benign - Neck Neck: Supple, no meningeal sign - Cardiac Cardiac: RRR, Strong equal pulses - Respiratory Respiratory: No respiratory distress, Clear bilaterally - Abdomen Abdomen: Soft, Non distended, Other (Mild diffuse lower abdominal tenderness. No peritoneal signs.) - Back Back: No spinal TTP - Derm Derm: Warm and dry - Extremities Extremities: No edema, No calf tenderness / cord - Neuro Neuro: Alert and oriented X 3 - Psych Psych: Normal mood, Normal affect Results - Vitals Vitals: Vital Signs - 24 hr 10/05/21 10/05/21 10/05/21 12:03 12:06 14:06 Temperature 36.6 C 36.6 C Heart Rate 98 98 102 H Respiratory 16 16 15 Rate Blood Pressure 163/90 H 163/90 H 197/48 H O2 Saturation 97 97 97 10/05/21 10/05/21 16:15 16:26 Temperature 36.6 C Heart Rate 120 H 120 H Respiratory 22 22 Rate Blood Pressure 178/102 H 178/102 H O2 Saturation 95 95 Oxygen O2 Source Room air - Labs Labs: Laboratory Tests 10/05/21 10/05/21 10/05/21 13:00 13:00 13:00 WBC 12.4 H RBC 4.85 Hgb 11.1 L Hct 37.9 MCV 78.1 L MCH 22.9 L MCHC 29.3 L RDW 17.0 H Plt Count 377 MPV 9.2 Neut # (Auto) 10.2 H Lymph # (Auto) 1.1 L Morris # (Auto) 1.1 H Eos # (Auto) 0.0 Baso # (Auto) 0.0 Absolute Nucleated RBC 0.00 Nucleated RBC % 0.0 PT 13.8 H INR 1.2 Sodium 140 Potassium 3.4 L Chloride 102 Carbon Dioxide 26 Anion Gap 12.0 BUN 15 Creatinine 0.7 Estimated GFR (MDRD) 82 L Glucose 117 H Calcium 9.0 Total Bilirubin 0.5 AST 23 ALT 17 Alkaline Phosphatase 104 Total Protein 7.6 Albumin 3.4 Globulin 4.2 Albumin/Globulin Ratio 0.8 L Lipase 20 L Urine Color Urine Clarity Urine pH Ur Specific Roy Urine Protein Urine Glucose (UA) Urine Ketones Urine Occult Blood Urine Nitrite Urine Bilirubin Urine Urobilinogen Ur Leukocyte Esterase Urine RBC Urine WBC Ur Squamous Epith Cells Urine Bacteria Ur Microscopic Review Urine Culture Comments 10/05/21 14:45 WBC RBC Hgb Hct MCV MCH MCHC RDW Plt Count MPV Neut # (Auto) Lymph # (Auto) Morris # (Auto) Eos # (Auto) Baso # (Auto) Absolute Nucleated RBC Nucleated RBC % PT INR Sodium Potassium Chloride Carbon Dioxide Anion Gap BUN Creatinine Estimated GFR (MDRD) Glucose Calcium Total Bilirubin AST ALT Alkaline Phosphatase Total Protein Albumin Globulin Albumin/Globulin Ratio Lipase Urine Color YELLOW Urine Clarity CLOUDY Urine pH 6.0 Ur Specific Roy 1.025 Urine Protein 30 H Urine Glucose (UA) NEGATIVE Urine Ketones >=80 H Urine Occult Blood SMALL H Urine Nitrite POSITIVE H Urine Bilirubin NEGATIVE Urine Urobilinogen 0.2 (NORMAL) Ur Leukocyte Esterase LARGE H Urine RBC 6-10 H Urine WBC >25 H Ur Squamous Epith Cells MANY Squamous H Urine Bacteria Many H Ur Microscopic Review INDICATED Urine Culture Comments NOT INDICATED - Rads (name of study) CT abdomen pelvis Radiology: Final report received, EMP read contemporaneously, See rad report (No acute abnormality) PD MEDICAL DECISION MAKING - ED course Complexity details: reviewed results, re-evaluated patient, considered differential, d/w patient, d/w family ED course: The patient appears to have viral diarrhea versus likely resulted and a secondary UTI. Does have a leukocytosis. No fever. No evidence of sepsis. She is in atrial fibrillation here. Heart rate for the most part is between 80 and 90. Occasionally spikes over 100 but does not stay there. Tolerating p.o. without any difficulty here. No vomiting. Given IV fluids and does feel much better. Does not want any medications for home. We will place her on the ant ibiotics for home and have her follow-up with her doctor for further care. Patient counseled regarding signs and symptoms for which I believe and urgent re-evaluation would be necessary. Patient with good understanding of and agreement to plan and is comfortable going home at this time This document was made in part using voice recognition software. While efforts are made to proofread this document, sound alike and grammatical errors may occur. Departure - Departure Disposition: 01 Home, Self Care Clinical Impression: Dehydration UTI (urinary tract infection) Qualifiers: Urinary tract infection type: acute cystitis Hematuria presence: without hematuria Qualified Code(s): N30.00 - Acute cystitis without hematuria Diarrhea Qualifiers: Diarrhea type: unspecified type Qualified Code(s): R19.7 - Diarrhea, unspecified Condition: Good Instructions: ED Diarrhea Viral, ED UTI Cystitis Female Follow-Up: your,doctor this week for recheck [Other] Prescriptions: Cefpodoxime Proxetil [Vantin] 100 mg PO Q12H #14 tablet Comments: Your antibiotics were sent to [facility] in [place]. Please follow-up with your doctor for further care. Take all antibiotics until gone. A urine culture was also performed and if any antibiotic changes needed, we will call you. Discharge Date/Time: 10/05/21 16:35
[2021-10-05 13:14] LABS: BASOPHILS % (AUTO) 0.2 %; EOSINOPHILS % (AUTO) 0.2 %; HCT - HEMATOCRIT 37.9 % (37.0-47.0); HGB - HEMOGLOBIN 11.1 g/dL (12.0-16.0); LYMPHOCYTES # (AUTO) 1.1 10^3/uL (1.5-3.5); LYMPHOCYTES % (AUTO) 9.1 %; MEAN CORPUSCULAR HEMOGLOBIN 22.9 pg (27.0-31.0); MEAN CORPUSCULAR HGB CONC 29.3 g/dL (32.0-36.0); MEAN CORPUSCULAR VOLUME 78.1 fL (81.0-99.0); MEAN PLATELET VOLUME 9.2 fL (7.9-10.8); MONOCYTES # (AUTO) 1.1 10^3/uL (0.0-1.0); MONOCYTES % (AUTO) 8.4 %; NEUTROPHILS # (AUTO) 10.2 10^3/uL (1.5-6.6); NEUTROPHILS % (AUTO) 81.7 %; PLT - PLATELET COUNT 377 10^3/uL (130-450); RED BLOOD COUNT 4.85 10^6/uL (4.20-5.40); WHITE BLOOD COUNT 12.4 x10^3/uL (4.8-10.8)
[2021-10-05 13:22] LABS: INR 1.2 (0.8-1.2); PT - PROTHROMBIN TIME 13.8 secs (9.9-12.6)
[2021-10-05 13:35] LABS: ALBUMIN 3.4 g/dL (3.2-5.5); ALBUMIN/GLOBULIN RATIO 0.8 (1.0-2.2); BILIRUBIN,TOTAL 0.5 mg/dL (0.2-1.0); CREATININE 0.7 mg/dL (0.4-1.0); POTASSIUM 3.4 mmol/L (3.5-5.0); TOTAL PROTEIN 7.6 g/dL (6.7-8.2)
[2021-10-05 15:08] LABS: BILIRUBIN,URINE NEGATIVE (NEGATIVE); GLUCOSE, URINE (UA) NEGATIVE (NEGATIVE); KETONES,URINE (UA) >=80 mg/dL (NEGATIVE); LEUKOCYTE ESTERASE, URINE LARGE (NEGATIVE); NITRITE,URINE POSITIVE (NEGATIVE); OCCULT BLOOD,URINE SMALL (NEGATIVE); PROTEIN,URINE 30 mg/dL (NEGATIVE); UROBILINOGEN,URINE 0.2 (NORMAL) E.U./dL (NORMAL)
[2021-10-05 15:11] LABS: CLARITY,URINE CLOUDY (CLEAR)
--- NOTE | 2021-10-05 15:13 | CT Report ---
PROCEDURE: CT abdomen and pelvis without contrast INDICATIONS: LLQ pain, diarrhea TECHNIQUE: Noncontrast 5 mm thick sections acquired from the diaphragms to the symphysis. 5 mm coronal and sagi ttal reformats were then performed. For radiation dose reduction, the following was used: automated exposure control, adjustment of mA and/or kV according to patient size. COMPARISON: 01/24/2018 FINDINGS: Image quality: Excellent. ABDOMEN: Lung bases: Heart size is normal. Large hiatal hernia present with left lower lobe atelectasis. Solid organs: Liver and spleen are normal in size. Gallbladder surgically absent. Pancreas is norm al in contours. No adrenal nodules. Kidneys are normal in size, without hydronephrosis or nephrolit hiasis. Peritoneum and bowel: Unenhanced bowel loops demonstrate normal wall thickness and caliber. No free fluid or air. Nodes and vessels: No retroperitoneal or mesenteric adenopathy by size criteria. Aorta and inferior vena cava are normal in caliber. Miscellaneous: No ventral hernias. PELVIS: Genitourinary: Bladder wall thickness is normal. Miscellaneous: Ventral herniorrhaphy with fasteners contacted. Small ventral hernia along the right l ateral aspect contains fat remains unchanged from the prior Bones: No suspicious bony lesions. No vertebral body compression fractures. Lower lumbar spine deg enerative disc disease and arthropathy. Prior right L5-S1 hemilaminectomy IMPRESSION: 1. No acute CT findings in the abdomen and pelvis. No evidence of diverticulitis. 2. Chronic findings include a large hiatal hernia and ventral herniorrhaphy with small right lateral recurrent ventral hernia, stable from 2018 Reviewed by: Hussein Turner MD on 10/05/2021 2:12 PM AKDT Approved by: Hussein Turner MD on 10/05/2021 2:12 PM AKDT Station ID: [id number]
[2021-10-05 15:17] LABS: BACTERIA,URINE Many /HPF (None Seen); SQUAMOUS EPITHELIAL CELL,UR MANY Squamous (<= Few); WBC,URINE >25 /HPF (0-5)
[2021-10-05] MEDS ORDERED: cefTRIAXone 1 GM VIAL IVP STA (15:27)
[2021-10-05 16:28] VITALS: BP 178/102
== END 2021-10-05 16:35 | disposition home or self-care (01) ==
LOC: EDUNIT# → ED 12:02
DX: E86.0 Dehydration (principal); N30.00 Acute cystitis without hematuria; R19.7 Diarrhea, unspecified; Z20.822 Contact with and (suspected) exposure to COVID-19
CPT/HCPCS: 36415; 74176; 80053; 81001; 83690; 85025; 85610; 96361; 96374; 96375; 99284; A9270; U0004; 81003; 87086

== ENCOUNTER 2022-01-09 08:00 | Outpatient (CLI) | payer MEDICARE, BC | END 2022-01-09 23:59 | disposition home or self-care (01) | LOC: LAB.WCP 08:00 | PROVIDERS: ATTEND Nurse Practitioner | DX: I48.0 Paroxysmal atrial fibrillation (principal); I82.509 Chronic embolism and thrombosis of unspecified deep veins of unspecified lower extremity; Z79.01 Long term (current) use of anticoagulants; Z86.79 Personal history of other diseases of the circulatory system ==

== ENCOUNTER → 2022-02-13 | Outpatient (CLI) | payer MEDICARE, BC | LOC: LAB.WCP 08:00 | PROVIDERS: ATTEND Nurse Practitioner | DX: I48.0 Paroxysmal atrial fibrillation (principal); Z79.01 Long term (current) use of anticoagulants; I82.509 Chronic embolism and thrombosis of unspecified deep veins of unspecified lower extremity; I63.9 Cerebral infarction, unspecified ==

== ENCOUNTER → 2022-03-19 | Outpatient (CLI) | payer MEDICARE, BC, MEDICAID | END | disposition EMS.NT | LOC: EMS 15:08 | DX: R53.81 Other malaise (principal) ==

== ENCOUNTER → 2022-03-20 | Outpatient (CLI) | payer MEDICARE, BC, MEDICAID | END | disposition critical access hospital (66) | LOC: EMS 11:26 | DX: R19.7 Diarrhea, unspecified (principal); R15.9 Full incontinence of feces; R11.0 Nausea; R05.9 Cough, unspecified | CPT/HCPCS: A0425; A0429 ==

== ENCOUNTER 2022-04-02 08:00 | Outpatient (CLI) | payer MEDICARE, BC, MEDICAID | END 2022-04-02 08:01 | disposition home or self-care (01) | LOC: LAB.WCP 08:00 | PROVIDERS: ATTEND Nurse Practitioner | DX: I48.0 Paroxysmal atrial fibrillation (principal); Z79.01 Long term (current) use of anticoagulants; Z86.79 Personal history of other diseases of the circulatory system ==

== ENCOUNTER 2022-05-21 14:58 | Outpatient (CLI) | payer MEDICARE, BC, MEDICAID ==
[2022-05-21 19:03] LABS: BASOPHILS % (AUTO) 0.4 %; EOSINOPHILS # (AUTO) 0.1 10^3/uL (0.0-0.7); HCT - HEMATOCRIT 36.7 % (37.0-47.0); HGB - HEMOGLOBIN 10.4 g/dL (12.0-16.0); LYMPHOCYTES # (AUTO) 1.8 10^3/uL (1.5-3.5); MEAN CORPUSCULAR HEMOGLOBIN 23.6 pg (27.0-31.0); MEAN CORPUSCULAR HGB CONC 28.3 g/dL (32.0-36.0); MEAN CORPUSCULAR VOLUME 83.2 fL (81.0-99.0); MEAN PLATELET VOLUME 10.9 fL (7.9-10.8); MONOCYTES # (AUTO) 0.8 10^3/uL (0.0-1.0); NEUTROPHILS # (AUTO) 7.6 10^3/uL (1.5-6.6); NEUTROPHILS % (AUTO) 73.2 %; PLT - PLATELET COUNT 387 10^3/uL (130-450); RED BLOOD COUNT 4.41 10^6/uL (4.20-5.40); RED CELL DISTRIBUTION WIDTH 17.1 % (12.0-15.0); WHITE BLOOD COUNT 10.3 x10^3/uL (4.8-10.8)
[2022-05-21 19:08] LABS: INR 1.8 (0.8-1.2); PT - PROTHROMBIN TIME 19.8 secs (9.9-12.6)
[2022-05-21 19:25] LABS: ALBUMIN 3.4 g/dL (3.2-5.5); ALBUMIN/GLOBULIN RATIO 0.8 (1.0-2.2); ALKALINE PHOSPHATASE 106 IU/L (42-121); ALT ALANINE AMINOTRANSFERASE 14 IU/L (10-60); AST ASPARTATE AMINOTRANSFERASE 17 IU/L (10-42); BILIRUBIN,TOTAL 0.7 mg/dL (0.2-1.0); BUN - BLOOD UREA NITROGEN 28 mg/dL (6-20); CALCIUM 9.1 mg/dL (8.5-10.3); CARBON DIOXIDE - CO2 26 mmol/L (21-32); CHLORIDE 101 mmol/L (101-111); CHOLESTEROL 125 mg/dL; CREATININE 0.9 mg/dL (0.4-1.0); GFR - MDRD 61 (>89); GLUCOSE 110 mg/dL (70-100); HDL CHOLESTEROL 63 mg/dL; LDL CHOLESTEROL,CALCULATED 42 mg/dL; LDL/HDL RATIO 0.7 (<4.4); POTASSIUM 3.9 mmol/L (3.5-5.0); SODIUM 140 mmol/L (135-145); TOTAL PROTEIN 7.9 g/dL (6.7-8.2); TRIGLYCERIDES 99 mg/dL; VLDL CHOLESTEROL 20 mg/dL
[2022-05-21 19:33] LABS: THYROID STIMULATING HORMONE 0.68 uIU/mL (0.34-5.60)
[2022-05-21 19:48] LABS: PLATELET ESTIMATE, MANUAL NORMAL (130-450,000) (NORMAL); PLATELET MORPHOLOGY NORMAL APPEARANCE (NORMAL); SLIDE REVIEW? Indicated
[2022-05-21 20:22] LABS: ESTIMATED AVERAGE GLUCOSE 146 mg/dL (70-100); HEMOGLOBIN A1c% 6.7 % (4.27-6.07)
== END 2022-05-21 14:59 | disposition home or self-care (01) ==
LOC: LAB.N 14:58
PROVIDERS: ATTEND Nurse Practitioner
DX: E11.9 Type 2 diabetes mellitus without complications (principal); E78.5 Hyperlipidemia, unspecified; F33.1 Major depressive disorder, recurrent, moderate; Z51.81 Encounter for therapeutic drug level monitoring
CPT/HCPCS: 36415; 80053; 80061; 82043; 82570; 83036; 83721; 84443; 85025; 85610

== ENCOUNTER 2022-07-01 08:00 | Outpatient (CLI) | payer MEDICARE, BC, MEDICAID ==
[2022-07-01 18:18] LABS: BASOPHILS # (AUTO) 0.1 10^3/uL (0.0-0.1); BASOPHILS % (AUTO) 0.7 %; EOSINOPHILS # (AUTO) 0.1 10^3/uL (0.0-0.7); HCT - HEMATOCRIT 38.6 % (37.0-47.0); HGB - HEMOGLOBIN 10.9 g/dL (12.0-16.0); LYMPHOCYTES # (AUTO) 1.3 10^3/uL (1.5-3.5); MEAN CORPUSCULAR HEMOGLOBIN 23.9 pg (27.0-31.0); MEAN CORPUSCULAR HGB CONC 28.2 g/dL (32.0-36.0); MEAN CORPUSCULAR VOLUME 84.6 fL (81.0-99.0); MEAN PLATELET VOLUME 11.5 fL (7.9-10.8); MONOCYTES # (AUTO) 0.6 10^3/uL (0.0-1.0); MONOCYTES % (AUTO) 6.8 %; NEUTROPHILS # (AUTO) 6.8 10^3/uL (1.5-6.6); NEUTROPHILS % (AUTO) 76.3 %; PLT - PLATELET COUNT 417 10^3/uL (130-450); RED BLOOD COUNT 4.56 10^6/uL (4.20-5.40); RED CELL DISTRIBUTION WIDTH 16.4 % (12.0-15.0); WHITE BLOOD COUNT 8.9 x10^3/uL (4.8-10.8)
[2022-07-01 18:58] LABS: ALBUMIN 3.5 g/dL (3.2-5.5); ALBUMIN/GLOBULIN RATIO 0.8 (1.0-2.2); BILIRUBIN,TOTAL 0.4 mg/dL (0.2-1.0); CALCIUM 8.8 mg/dL (8.5-10.3); CREATININE 1.3 mg/dL (0.4-1.0); POTASSIUM 4.2 mmol/L (3.5-5.0); TOTAL PROTEIN 7.8 g/dL (6.7-8.2)
== END 2022-07-01 23:59 | disposition home or self-care (01) ==
LOC: LAB.N 08:00
PROVIDERS: ATTEND Physician Assistant
DX: R06.09 Other forms of dyspnea (principal)
CPT/HCPCS: 36415; 80053; 83880; 84443; 85025

== ENCOUNTER 2022-07-01 15:32 | Outpatient (CLI) | payer MEDICARE, BC ==
--- NOTE | 2022-07-01 16:29 | XRAY Report ---
PROCEDURE: Chest 2 View X-Ray INDICATIONS: DYSPNEA ON EXERTION TECHNIQUE: 2 views of the chest were acquired. COMPARISON: 04-09. FINDINGS: Surgical changes and devices: None. Lungs and pleura: No pleural effusions or pneumothorax. Lungs are clear. Mediastinum: Large hiatal hernia. Mediastinal contours are normal. Heart size is normal. Bones and chest wall: No suspicious bony abnormalities. Soft tissues appear unremarkable. IMPRESSION: No acute cardiopulmonary process demonstrated radiographically. Large hiatal hernia. Reviewed by: Narendra Hardin MD on 07/01/2022 4:27 PM PDT Approved by: Narendra Hardin MD on 07/01/2022 4:27 PM PDT Station ID: [id number]
== END 2022-07-01 15:33 | disposition home or self-care (01) ==
LOC: DI 15:32
PROVIDERS: ATTEND Physician Assistant
DX: R06.09 Other forms of dyspnea (principal); K44.9 Diaphragmatic hernia without obstruction or gangrene
CPT/HCPCS: 36415; 80053; 83880; 84443; 85025

== ENCOUNTER 2022-12-04 08:00 | Outpatient (CLI) | payer MEDICARE, BC | END 2022-12-04 23:59 | disposition home or self-care (01) | LOC: LAB.WCP 08:00 | PROVIDERS: ATTEND Nurse Practitioner | DX: I48.0 Paroxysmal atrial fibrillation (principal); Z79.01 Long term (current) use of anticoagulants; Z86.79 Personal history of other diseases of the circulatory system ==

== ENCOUNTER 2022-12-04 14:17 | Outpatient (CLI) | payer MEDICARE, BC ==
[2022-12-04 17:33] LABS: BASOPHILS % (AUTO) 0.5 %; EOSINOPHILS # (AUTO) 0.1 10^3/uL (0.0-0.7); EOSINOPHILS % (AUTO) 1.5 %; HCT - HEMATOCRIT 37.1 % (37.0-47.0); LYMPHOCYTES # (AUTO) 1.5 10^3/uL (1.5-3.5); LYMPHOCYTES % (AUTO) 18.4 %; MEAN CORPUSCULAR HEMOGLOBIN 25.8 pg (27.0-31.0); MEAN CORPUSCULAR HGB CONC 29.6 g/dL (32.0-36.0); MEAN CORPUSCULAR VOLUME 87.1 fL (81.0-99.0); MEAN PLATELET VOLUME 10.4 fL (7.9-10.8); MONOCYTES # (AUTO) 0.7 10^3/uL (0.0-1.0); MONOCYTES % (AUTO) 8.7 %; NEUTROPHILS # (AUTO) 5.6 10^3/uL (1.5-6.6); NEUTROPHILS % (AUTO) 70.5 %; PLT - PLATELET COUNT 384 10^3/uL (130-450); RED BLOOD COUNT 4.26 10^6/uL (4.20-5.40); RED CELL DISTRIBUTION WIDTH 15.1 % (12.0-15.0); WHITE BLOOD COUNT 7.9 x10^3/uL (4.8-10.8)
[2022-12-04 18:03] LABS: ALBUMIN 3.8 g/dL (3.2-5.5)
[2022-12-04 18:11] LABS: ESTIMATED AVERAGE GLUCOSE 137 mg/dL (70-100); HEMOGLOBIN A1c% 6.4 % (4.27-6.07)
[2022-12-04 18:36] LABS: ALBUMIN/GLOBULIN RATIO 0.9 (1.0-2.2); BILIRUBIN,TOTAL 0.4 mg/dL (0.2-1.0); CALCIUM 9.2 mg/dL (8.5-10.3); POTASSIUM 4.5 mmol/L (3.5-4.5)
== END 2022-12-04 14:18 | disposition home or self-care (01) ==
LOC: LAB.F 14:17
PROVIDERS: ATTEND Nurse Practitioner
DX: I10 Essential (primary) hypertension (principal); E11.9 Type 2 diabetes mellitus without complications
CPT/HCPCS: 36415; 80053; 83036; 85025

== ENCOUNTER 2023-01-29 11:48 | Outpatient (CLI) | payer MEDICARE, BC ==
[2023-01-29 11:54] LABS: BILIRUBIN,URINE NEGATIVE (NEGATIVE); GLUCOSE, URINE (UA) NEGATIVE (NEGATIVE); KETONES,URINE (UA) NEGATIVE (NEGATIVE); NITRITE,URINE POSITIVE (NEGATIVE); OCCULT BLOOD,URINE NEGATIVE (NEGATIVE); PROTEIN,URINE NEGATIVE (NEGATIVE); UROBILINOGEN,URINE 0.2 (NORMAL) E.U./dL (NORMAL)
[2023-01-29 12:04] LABS: BACTERIA,URINE Moderate /HPF (None Seen); CLARITY,URINE SL. CLOUDY (CLEAR); LEUKOCYTE ESTERASE, URINE NEGATIVE (NEGATIVE); RBC,URINE None Seen /HPF (0-5); SQUAMOUS EPITHELIAL CELL,UR RARE Squamous (<= Few)
== END 2023-01-29 11:49 | disposition home or self-care (01) ==
LOC: LAB.R 11:48
PROVIDERS: ATTEND Nurse Practitioner
DX: N18.32 Chronic kidney disease, stage 3b (principal)
CPT/HCPCS: 81001

== ENCOUNTER 2023-03-24 12:46 | Outpatient (CLI) | payer MEDICARE, BC | END 2023-03-24 12:47 | disposition home or self-care (01) | LOC: LAB 12:46 | PROVIDERS: ATTEND Nurse Practitioner | DX: I48.0 Paroxysmal atrial fibrillation (principal); I63.9 Cerebral infarction, unspecified; Z79.01 Long term (current) use of anticoagulants | CPT/HCPCS: 36416; 85610 ==

== ENCOUNTER 2023-03-24 12:52 | Outpatient (CLI) | payer MEDICARE, BC ==
--- NOTE | 2023-03-24 14:36 | XRAY Report ---
PROCEDURE: Foot 3 View LT INDICATIONS: OSTEOMYELITIS LEFT 5TH MTH TECHNIQUE: 4 views of the foot were acquired. COMPARISON: None. FINDINGS: Bones: No definite evidence of osteomyelitis of the fifth metatarsal head. This is decreased osseous mineralization. The toes are held in flexion which limits evaluation. Degenerative changes of the fo ot are present. No fractures or dislocations. No suspicious bony lesions. Soft tissues: No suspicious soft tissue calcifications or masses. IMPRESSION: No radiographic evidence of acute osteomyelitis. Radiograph is insensitive for early discitis osteomy elitis, if clinically indicated, recommend MRI for further evaluation. Reviewed by: Juan Engel MD on 03/24/2023 2:35 PM PST Approved by: Juan Engel MD on 03/24/2023 2:35 PM PST Station ID: [id number]
== END 2023-03-24 12:53 | disposition home or self-care (01) ==
LOC: DI 12:52
PROVIDERS: ATTEND Family Medicine
DX: L97.522 Non-pressure chronic ulcer of other part of left foot with fat layer exposed (principal); E11.621 Type 2 diabetes mellitus with foot ulcer

== ENCOUNTER 2023-03-26 08:00 | Outpatient (CLI) | payer MEDICARE, BC | END 2023-03-26 23:59 | disposition home or self-care (01) | LOC: LAB.R 08:00 | PROVIDERS: ATTEND Nurse Practitioner | DX: I48.0 Paroxysmal atrial fibrillation (principal); I63.9 Cerebral infarction, unspecified; Z79.01 Long term (current) use of anticoagulants | CPT/HCPCS: 85610 ==

== ENCOUNTER 2023-07-02 09:32 | Outpatient (CLI) | payer MEDICARE, BC | END 2023-07-02 23:59 | disposition critical access hospital (66) | LOC: EMS 09:32 | DX: R19.7 Diarrhea, unspecified (principal); R53.81 Other malaise | CPT/HCPCS: A0425; A0429 ==

== ENCOUNTER 2023-07-02 10:11 | Emergency (ER) | payer MEDICARE, BC ==
--- NOTE | 2023-07-02 10:38 | ED Physician Documentation ---
PD HPI NVD - Stated complaint Stated Complaint: DIARRHEA - Chief complaint Chief Complaint: Abd Pain - History obtained from History obtained from: Patient - History of Present Illness Timing - onset: How many days ago (3) Timing - duration: Days (3) Timing - details: Gradual onset, Still present (esclating severity last night and overnight.) Associated symptoms: Abdominal pain (left lower), Other (feeling some fluttering feeling in chest, thinks it might be anxiety.). No: Fever, Chest pain Contributing factors: Anticoagulated. No: Sick contact, Bad food, Recent antibiotics Improved by: Laying still Worsened by: Moving, Palpation Similar symptoms before: Has not had sx before Recently seen: Not recently seen Review of Systems Constitutional: denies: Fever, Chills Nose: reports: Congestion Throat: denies: Sore throat Respiratory: denies: Cough GI: reports: Abdominal Pain, Nausea, Diarrhea (several loose BMs.). denies: Vomiting, Constipation Neurologic: reports: Generalized weakness. denies: Near syncope PD PAST MEDICAL HISTORY - Past Medical History Past Medical History: Yes Cardiovascular: Hypertension, Deep vein thrombosis, Atrial fibrillation Respiratory: Shortness of breath Neuro: None Endocrine/Autoimmune: Type 2 diabetes GI: GERD, GI bleed GUARD IMMIGRATION: None : Kidney stones HEENT: Chronic vision loss Psych: Depression, Anxiety Musculoskeletal: Osteoarthritis, Chronic back pain Derm: None - Past Surgical History Past Surgical History: Yes General: Cholecystectomy Ortho: Knee replacement, Other HEENT: Cataracts - Present Medications Home Medications: Ambulatory Orders Medication Instructions Recorded Confirmed lisinopriL [Lisinopril] 10 mg PO DAILY 03/23/15 07/19/20 Atorvastatin Calcium [Lipitor] 80 mg PO QPM 05/02/15 07/19/20 ARIPiprazole [Abilify] 5 mg PO QPM 07/19/20 07/19/20 Duloxetine HCl [Cymbalta] 60 mg PO DAILY 07/19/20 07/02/23 Gabapentin [Neurontin] 800 mg PO TID 07/19/20 07/19/20 Oxybutynin [Ditropan] 5 mg PO BID 07/19/20 07/19/20 Pantoprazole [Protonix] 40 mg PO BID 07/19/20 07/19/20 Potassium Chloride 40 meq PO DAILY 07/19/20 07/19/20 Solifenacin Succinate [Vesicare] 10 mg PO DAILY 07/19/20 07/19/20 Warfarin [Coumadin] 1.5 mg PO 07/19/20 07/19/20 Warfarin [Coumadin] 3 mg PO 07/19/20 07/19/20 oxyCODONE [Roxicodone] 5 mg PO Q6H 07/19/20 07/19/20 Aspirin Chewable [St Abdiel 81 mg PO DAILY #30 tablet 07/29/20 Aspirin] Clopidogrel [Plavix] 75 mg PO DAILY 24 Days #24 tablet 07/29/20 Furosemide [Lasix] 40 mg PO DAILY 30 Days #30 07/29/20 07/02/23 Metoprolol Succinate [Toprol Xl] 25 mg PO BID 30 Days #60 tablet 07/29/20 Cefpodoxime Proxetil [Vantin] 100 mg PO Q12H #14 tablet 10/05/21 Amox/Clav 875/125 [Augmentin 1 tablet PO Q12H 10 Days #20 tablet 04/15/23 875/125 Tab] Amox/Clav 875/125 [Augmentin] 1 each PO Q12H #10 tablet 07/02/23 HYDROcod/ACETAM 5/325 [Aiken 5/325] 1 ea PO Q6H PRN #10 tablet 07/02/23 L.acid/L.casei/B.bif/B.gaby/Fos 1 each PO TID 7 Days #20 cap 07/02/23 [Probiotic Blend Capsule] Ondansetron Odt [Zofran] 4 mg TL Q6H PRN #10 tablet 07/02/23 dexAMETHasone [Decadron] 4 mg PO DAILY #5 tablet 07/02/23 - Allergies Allergies/Adverse Reactions: Allergies Allergy/AdvReac Type Severity Reaction Status Date / Time phenobarbital Allergy Hives Verified 07/02/23 10:19 morphine AdvReac Intermediate Hallucinati Verified 07/02/23 10:19 ons doxycycline AdvReac Nausea Verified 07/02/23 10:19 - Social History Does the pt smoke?: No Smoking Status: Never smoker Does the pt drink ETOH?: No Does the pt have substance abuse?: Yes - Immunizations Immunizations are current?: Yes - POLST Patient has POLST: No PD ED PE NORMAL - Vitals Vital signs reviewed: Yes - General General: Alert and oriented X 3, Well developed/nourished, Other (appears in pain but also seems anxious and expresses undue concern about her symptoms.) - Neck Neck: Supple, no meningeal sign, No adenopathy - Cardiac Cardiac: No murmur. No: RRR (irregular but rate controlled. ) - Respiratory Respiratory: Clear bilaterally - Abdomen Abdomen: Normal bowel sounds, Soft, Non distended, No organomegaly, Other (tender LLQ with guarding and some localized rebound. No percussion tender noted. Rest of abd not tender. ) Results - Vitals Vitals: Vital Signs - 24 hr 07/02/23 07/02/23 07/02/23 10:19 11:22 13:00 Temperature 36.4 C L Heart Rate 91 93 99 Respiratory 22 14 19 Rate Blood Pressure 167/83 H 187/65 H 188/71 H O2 Saturation 98 100 100 If not protocol 2 : Oxygen Flow, liters/minute 07/02/23 13:59 Temperature 36.4 C L Heart Rate 99 Respiratory 20 Rate Blood Pressure 178/71 H O2 Saturation 94 If not protocol : Oxygen Flow, liters/minute Oxygen O2 Source Nasal cannula - Labs Labs: Laboratory Tests 07/02/23 07/02/23 07/02/23 10:44 10:44 10:44 WBC 7.8 RBC 4.74 Hgb 11.1 L Hct 38.9 MCV 82.1 MCH 23.4 L MCHC 28.5 L RDW 16.7 H Plt Count 407 MPV 9.3 Neut # (Auto) 5.9 Lymph # (Auto) 1.3 L [place] # (Auto) 0.6 Eos # (Auto) 0.1 Baso # (Auto) 0.0 Absolute Nucleated RBC 0.00 Nucleated RBC % 0.0 PT 29.7 H INR 2.8 H Sodium 139 Potassium 3.9 Chloride 102 Carbon Dioxide 28 Anion Gap 9.0 BUN 9 Creatinine 0.7 Estimated GFR (MDRD) 82 L Glucose 134 H Calcium 9.1 Magnesium 1.7 Total Bilirubin 0.5 AST 14 ALT 8 L Alkaline Phosphatase 115 Total Protein 7.8 Albumin 3.8 Globulin 4.0 Albumin/Globulin Ratio 1.0 Lipase < 10 L - Rads (name of study) abd/pelvic CT Relevant Findings:: Prelim report reviewed (localized area of colonic wall thickening. No perforation nor fluid collecion. ), EMP independent interpretation of test PD Medical Decision Making - ED course Complexity details: reviewed results (CT showing local sigmoid colitis without diverticulitis per se. wbc normal. creatinine well normal range. Glucose and lytes are normal range. Tests reviewed by me.), considered differential (area of pain along with diarrhea would suggest colitis/diverticulitis. Has not had these previously. Can get labs and CT to evaluate, since the degree of pain could suggest complicated process. ), d/w patient Reviewed Lab Results: CT abd showing localized colitis sigmoid area. This can account for her abd pain location and stool changes. Commonly would consider anti-inflammatories and probiotics for colitis. On Coumadin so skip NSAIDs. Can go short course SAIDs. Also I would be concerned with infectious and not just inflammatory, given quick onset and severity, so add antibiotics. PT/INR 2.8. Will want to check it again soon next week as meds/illness can affect it. Departure - Departure Disposition: 01 Home, Self Care Clinical Impression: Feeling anxious, Left lower quadrant abdominal pain, Colitis Condition: Stable Record reviewed to determine appropriate education?: Yes Instructions: ED Diverticulitis Follow-Up: Aurora Mckeon ARNP [Primary Care Provider] - Prescriptions: Amox/Clav 875/125 [Augmentin] 1 each PO Q12H #10 tablet dexAMETHasone [Decadron] 4 mg PO DAILY #5 tablet HYDROcod/ACETAM 5/325 [Aiken 5/325] 1 ea PO Q6H PRN #10 tablet PRN Reason: Pain L.acid/L.casei/B.bif/B.gaby/Fos [Probiotic Blend Capsule] 1 each PO TID 7 Days #20 cap Ondansetron Odt [Zofran] 4 mg TL Q6H PRN #10 tablet PRN Reason: Nausea / Vomiting Comments: The CT of your abdomen showed a localized area of inflammation of the colon in the sigmoid area (sigmoid colitis). No obvious diverticula or diverticulitis seen commonly a localized colitis like that we will originate at a small area such as a diverticulum. We would treat this as a localized colitis, likely bacterial, with combination of anti-inflammatories as well as Augmentin antibiotic. Also probiotics will be helpful as well. Ondansetron if needed for nausea. Continue your other usual medicines. Tylenol 500 to 650 mg every 4-6 hours if needed for pain. To that add hydrocodone/acetaminophen if needed for worse pain. Since you are on warfarin/Coumadin, you do not want to be taking any regular NSAIDs. You were chosen a different type of anti-inflammatory and then also the Tylenol and pain medicine if needed. Your PT/INR was in a reasonable range today at 2.8. The illness with the diarrhea as well as the medication can affect your Coumadin level so you want it rechecked early to mid next week. I sent new prescriptions to your preferred pharmacy. Return if not improving well over the next couple of days or if you are having increased pain, fever, bloody stools, other concerns. I am prescribing a short course of narcotic pain medication for you. These are potentially dangerous and addictive medications that should be used carefully. These medications may constipate you. Take an [id number] stool softener such as docusate twice daily with plenty of water while taking these medications. If you go 24 hours without a bowel movement, take [id number] MiraLAX, per package instructions. Do not drink or drive while taking these medications. If you received narcotic or sedating medications while in the emergency department do not drive for 24 hours. Store this medication in a safe, secure place and out of reach of children. It is a violation of federal law to give or sell this medication to another person or to use in a manner other than prescribed. The ED will not refill narcotic prescriptions, including prescriptions lost or stolen. You can dispose of unwanted medications at the [facility]'s office or at several pharmacies such as [facility]. Forms: PCP List Discharge Date/Time: 07/02/23 14:05
[2023-07-02] MEDS: HYDROmorphone 0.5 MG/0.5 ML SYRINGE IVP STA (10:48)
[2023-07-02] MEDS: SODIUM CHLORIDE 0.9% 1,000 ML IV STA (10:49)
[2023-07-02] MEDS: KETOROLAC 15 MG/ML VIAL IVP STA (10:49)
[2023-07-02] MEDS: ONDANSETRON 4 MG/2 ML VIAL IVP STA (10:49)
[2023-07-02 10:53] LABS: BASOPHILS % (AUTO) 0.4 %; EOSINOPHILS # (AUTO) 0.1 10^3/uL (0.0-0.7); EOSINOPHILS % (AUTO) 0.6 %; HCT - HEMATOCRIT 38.9 % (37.0-47.0); HGB - HEMOGLOBIN 11.1 g/dL (12.0-16.0); LYMPHOCYTES # (AUTO) 1.3 10^3/uL (1.5-3.5); LYMPHOCYTES % (AUTO) 16.7 %; MEAN CORPUSCULAR HEMOGLOBIN 23.4 pg (27.0-31.0); MEAN CORPUSCULAR HGB CONC 28.5 g/dL (32.0-36.0); MEAN CORPUSCULAR VOLUME 82.1 fL (81.0-99.0); MEAN PLATELET VOLUME 9.3 fL (7.9-10.8); MONOCYTES # (AUTO) 0.6 10^3/uL (0.0-1.0); MONOCYTES % (AUTO) 7.2 %; NEUTROPHILS # (AUTO) 5.9 10^3/uL (1.5-6.6); PLT - PLATELET COUNT 407 10^3/uL (130-450); RED BLOOD COUNT 4.74 10^6/uL (4.20-5.40); RED CELL DISTRIBUTION WIDTH 16.7 % (12.0-15.0); WHITE BLOOD COUNT 7.8 x10^3/uL (4.8-10.8)
[2023-07-02] MEDS ORDERED: iohexoL-300 100 ML VIAL ONE (10:56)
[2023-07-02 11:02] LABS: INR 2.8 (0.8-1.2); MAGNESIUM 1.7 mg/dL (1.7-2.3); PT - PROTHROMBIN TIME 29.7 secs (9.9-12.6)
[2023-07-02 11:08] LABS: ALBUMIN 3.8 g/dL (3.2-5.5); ALKALINE PHOSPHATASE 115 IU/L (42-121); ALT ALANINE AMINOTRANSFERASE 8 IU/L (10-60); AST ASPARTATE AMINOTRANSFERASE 14 IU/L (10-42); BILIRUBIN,TOTAL 0.5 mg/dL (0.2-1.0); BUN - BLOOD UREA NITROGEN 9 mg/dL (6-20); CALCIUM 9.1 mg/dL (8.5-10.3); CARBON DIOXIDE - CO2 28 mmol/L (21-32); CHLORIDE 102 mmol/L (101-111); CREATININE 0.7 mg/dL (0.6-1.3); GFR - MDRD 82 (>89); GLUCOSE 134 mg/dL (74-104); POTASSIUM 3.9 mmol/L (3.5-4.5); SODIUM 139 mmol/L (135-145); TOTAL PROTEIN 7.8 g/dL (6.4-8.9)
[2023-07-02 11:14] LABS: LIPASE < 10 U/L (11-82)
--- NOTE | 2023-07-02 12:07 | CT Report ---
PROCEDURE: Abdomen/Pelvis W INDICATIONS: LLQ Abdominal pain, diverticulitis suspected CONTRAST: 100ml omni 300 TECHNIQUE: After the administration of intravenous contrast, a CT scan of the abdomen and pelvis was performed. Images were recorded and evaluated at appropriate window settings. Reformats: coronal and sagittal. F or radiation dose reduction, the following was used: automated exposure control, adjustment of mA and /or kV according to patient size. COMPARISON: 10/05/2021. FINDINGS: Image quality: Diagnostic. Lower chest: Large hiatal hernia. Bibasilar atelectasis. Mosaic attenuation of the lung bases. Cardio megaly. Liver: No solid mass. Gallbladder and biliary tree: Surgically absent. No biliary dilation, accounting for post-cholecystec krystle state. Spleen: Stable hypoattenuating lesion along the anterior margin of the spleen measuring 1.2 cm. Pancreas: No pancreatic ductal dilation. Adrenals: Mild nodular thickening of the right adrenal gland, similar to prior. Kidneys and ureters: No hydronephrosis. No renal cystic lesion which requires follow up. No solid mas s. Stomach, bowel and peritoneum: No bowel distension. No pathologic free fluid. No significant divertic ular disease. Mild wall thickening of the sigmoid colon, which is underdistended. Lymph nodes: No central or retroperitoneal adenopathy. Vessels: No infrarenal aortic aneurysm. PELVIS Reproductive organs: Unremarkable. Bladder: No abnormal wall thickening, accounting for underdistention. Pelvic lymph nodes: No pelvic adenopathy by size criteria. Bones: No aggressive osseous abnormality. Other: No significant ventral or inguinal hernia. Ventral hernia repair. IMPRESSION: Mild wall thickening of the sigmoid colon, which is underdistended. Differential includes artifact of underdistention versus colitis. No diverticular disease. No nephrolithiasis. Large hiatal hernia. Mosaic attenuation of the lungs, suggestive of diffuse air trapping in the setting of small airways d isease. Reviewed by: Caleb Vasquez MD on 07/02/2023 12:05 PM PDT Approved by: Caleb Vasquez MD on 07/02/2023 12:05 PM PDT Station ID: [id number]
[2023-07-02] MEDS: iohexoL-300 100 ML VIAL IVP ONE (12:48)
[2023-07-02] MEDS: AMOX/CLAV 875 MG/125 MG TABLET PO STA (13:16)
[2023-07-02 14:03] VITALS: BP 178/71; O2SAT 94
== END 2023-07-02 14:05 | disposition home or self-care (01) ==
LOC: EDUNIT# → ED 10:11
DX: K52.9 Noninfective gastroenteritis and colitis, unspecified (principal); I10 Essential (primary) hypertension; I48.91 Unspecified atrial fibrillation; E11.9 Type 2 diabetes mellitus without complications; Z79.01 Long term (current) use of anticoagulants
CPT/HCPCS: 36415; 74177; 80053; 83690; 83735; 85025; 85610; 96361; 96374; 96375; 99284; 99285; A9270; J1170; Q9967

== ENCOUNTER 2023-07-07 15:47 | Outpatient (CLI) | payer MEDICARE, BC | END 2023-07-07 23:59 | disposition EMS.NT | LOC: EMS 15:47 | DX: R53.1 Weakness (principal) ==

== ENCOUNTER 2023-07-13 08:10 | Outpatient (CLI) | payer MEDICARE, BC | END 2023-07-13 23:59 | disposition critical access hospital (66) | LOC: EMS 08:10 | DX: R53.1 Weakness (principal); R10.32 Left lower quadrant pain; R15.9 Full incontinence of feces | CPT/HCPCS: A0425; A0429 ==

== ENCOUNTER 2023-07-13 08:31 | Emergency (ER) | payer MEDICARE, BC ==
--- NOTE | 2023-07-13 08:41 | ED Physician Documentation ---
PD HPI ABD PAIN - Stated complaint Stated Complaint: GEN WEAKNESS - History obtained from History obtained from: Patient, Family, EMS - History of Present Illness Timing - onset: How many weeks ago (2) Timing - duration: Weeks (2) Timing - details: Gradual onset, Still present (She is having lower left abdominal pain. Seen 10 days ago for similar with diagnosis likely colitis. Symptoms persisted and general weakness preventing her from being up and around. Son has been unable to lift her. Been sitting in a chair for several days at least.) Quality: Cramping, Aching, Pain Location: Suprapubic, LLQ Improved by: Laying still Worsened by: Eating Associated symptoms: Nausea, Loss of appetite. No: Fever, Constipation, Dysuria Review of Systems Constitutional: reports: Myalgias, Fatigue. denies: Fever Nose: denies: Rhinorrhea / runny nose, Congestion Throat: denies: Sore throat Cardiac: denies: Chest pain / pressure Respiratory: denies: Dyspnea, Cough GI: reports: Abdominal Pain, Nausea, Diarrhea (loose without watery.). 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 : Kidney stones HEENT: Chronic vision loss Psych: Depression, Anxiety Musculoskeletal: Osteoarthritis, Chronic back pain Derm: None - Past Surgical History Past Surgical History: Yes General: Cholecystectomy Ortho: Knee replacement, Other HEENT: Cataracts - Present Medications Home Medications: Ambulatory Orders Medication Instructions Recorded Confirmed lisinopriL [Lisinopril] 10 mg PO DAILY 03/23/15 07/19/20 Atorvastatin Calcium [Lipitor] 80 mg PO QPM 05/02/15 07/19/20 ARIPiprazole [Abilify] 5 mg PO QPM 07/19/20 07/19/20 Duloxetine HCl [Cymbalta] 60 mg PO DAILY 07/19/20 07/13/23 Gabapentin [Neurontin] 800 mg PO TID 07/19/20 07/19/20 Oxybutynin [Ditropan] 5 mg PO BID 07/19/20 07/19/20 Pantoprazole [Protonix] 40 mg PO BID 07/19/20 07/19/20 Potassium Chloride 40 meq PO DAILY 07/19/20 07/19/20 Solifenacin Succinate [Vesicare] 10 mg PO DAILY 07/19/20 07/19/20 Warfarin [Coumadin] 1.5 mg PO SUMOSA 07/19/20 07/19/20 Warfarin [Coumadin] 3 mg PO TUWETH 07/19/20 07/19/20 oxyCODONE [Roxicodone] 5 mg PO Q6H 07/19/20 07/19/20 Aspirin Chewable [St Abdiel 81 mg PO DAILY #30 tablet 07/29/20 Aspirin] Clopidogrel [Plavix] 75 mg PO DAILY 24 Days #24 tablet 07/29/20 Furosemide [Lasix] 40 mg PO DAILY 30 Days #30 07/29/20 07/02/23 Metoprolol Succinate [Toprol Xl] 25 mg PO BID 30 Days #60 tablet 07/29/20 HYDROcod/ACETAM 5/325 [[place] 5/325] 1 ea PO Q6H PRN #10 tablet 07/02/23 L.acid/L.casei/B.bif/B.gaby/Fos 1 each PO TID 7 Days #20 cap 07/02/23 [Probiotic Blend Capsule] Ondansetron Odt [Zofran] 4 mg TL Q6H PRN #10 tablet 07/02/23 Gabapentin [Neurontin] 600 mg PO TID 07/13/23 07/13/23 - Allergies Allergies/Adverse Reactions: Allergies Allergy/AdvReac Type Severity Reaction Status Date / Time phenobarbital Allergy Hives Verified 07/13/23 10:14 morphine AdvReac Intermediate Hallucinati Verified 07/13/23 10:14 ons doxycycline AdvReac Nausea Verified 07/13/23 10:14 - Social History Does the pt smoke?: No Smoking Status: Never smoker Does the pt drink ETOH?: No Does the pt have substance abuse?: Yes - Immunizations Immunizations are current?: Yes - POLST Patient has POLST: No PD ED PE NORMAL - Vitals Vital signs reviewed: Yes - General General: Alert and oriented X 3, No acute distress, Well developed/nourished - HEENT HEENT: Moist mucous membranes, Pharynx benign - Neck Neck: Supple, no meningeal sign, No adenopathy - Cardiac Cardiac: RRR, No murmur - Respiratory Respiratory: No respiratory distress, Clear bilaterally - Abdomen Abdomen: Soft, Non distended, No organomegaly, Other (tender with some guarding but no percussion tender at LLQ and suprtapubic area. Fullness lower abd in suprapubic area. 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 There is skin rash red with speckled edging pattern but fairly uniform otherwise pelvic area. Nursing toook photos for chart. Some areas of small pustules and warmer redness. ) - Back Back: No CVA TTP - Derm Derm: Normal color - Extremities Extremities: No calf tenderness / cord, Other (1+ edema in both lower leg; no tenderness per se. ) - Neuro Neuro: Alert and oriented X 3, No motor deficit, No sensory deficit, Normal speech, Other (general weakness nonfocal, with unable to get herself up to sitting position nor to roll onto side by herself. Needed assistance for even these. ) Results - Vitals Vitals: Vital Signs - 24 hr 07/13/23 07/13/23 07/13/23 08:31 11:42 12:55 Temperature 36.8 C Heart Rate 79 88 92 Respiratory 16 16 16 Rate Blood Pressure 143/61 H 182/61 H 172/98 H O2 Saturation 96 98 97 07/13/23 07/13/23 07/13/23 15:00 17:00 19:53 Temperature Heart Rate 95 84 84 Respiratory 16 16 18 Rate Blood Pressure 157/53 H 149/51 H 144/53 H O2 Saturation 98 96 95 Oxygen O2 Source Room air - Labs Labs: Microbiology 07/13/23 09:10 Wound Culture - Preliminary Abdomen Laboratory Tests 07/13/23 07/13/23 07/13/23 09:10 10:15 10:15 WBC 13.0 H RBC 4.30 Hgb 10.0 L Hct 35.2 L MCV 81.9 MCH 23.3 L MCHC 28.4 L RDW 16.2 H Plt Count 535 H MPV 10.0 Neut # (Auto) 10.7 H Lymph # (Auto) 1.3 L [place] # (Auto) 0.9 Eos # (Auto) 0.1 Baso # (Auto) 0.0 Absolute Nucleated RBC 0.00 Nucleated RBC % 0.0 Manual Slide Review Indicated Platelet Estimate NORMAL (130-450,000) Platelet Morphology NORMAL APPEARANCE RBC Morph Micro Appear NORMAL APPEARANCE PT INR Sodium 139 Potassium 4.2 Chloride 104 Carbon Dioxide 29 Anion Gap 6.0 BUN 29 H Creatinine 0.8 Estimated GFR (MDRD) 70 L Glucose 127 H Calcium 9.1 Magnesium 1.6 L Total Bilirubin 0.5 AST 12 ALT 11 Alkaline Phosphatase 90 Total Creatine Kinase 28 L Total Protein 7.0 Albumin 3.2 Globulin 3.8 Albumin/Globulin Ratio 0.8 L Lipase < 10 L Urine Color YELLOW Urine Clarity CLEAR Urine pH 5.5 Ur Specific [place] 1.020 Urine Protein NEGATIVE Urine Glucose (UA) NEGATIVE Urine Ketones NEGATIVE Urine Occult Blood LARGE H Urine Nitrite NEGATIVE Urine Bilirubin NEGATIVE Urine Urobilinogen 0.2 (NORMAL) Ur Leukocyte Esterase TRACE H Urine RBC 11-25 H Urine WBC 6-10 H Ur Squamous Epith Cells RARE Squamous Urine Bacteria Few Ur Microscopic Review INDICATED Urine Culture Comments INDICATED 07/13/23 10:15 WBC RBC Hgb Hct MCV MCH MCHC RDW Plt Count MPV Neut # (Auto) Lymph # (Auto) [place] # (Auto) Eos # (Auto) Baso # (Auto) Absolute Nucleated RBC Nucleated RBC % Manual Slide Review Platelet Estimate Platelet Morphology RBC Morph Micro Appear PT 26.0 H INR 2.5 H Sodium Potassium Chloride Carbon Dioxide Anion Gap BUN Creatinine Estimated GFR (MDRD) Glucose Calcium Magnesium Total Bilirubin AST ALT Alkaline Phosphatase Total Creatine Kinase Total Protein Albumin Globulin Albumin/Globulin Ratio Lipase Urine Color Urine Clarity Urine pH Ur Specific [place] Urine Protein Urine Glucose (UA) Urine Ketones Urine Occult Blood Urine Nitrite Urine Bilirubin Urine Urobilinogen Ur Leukocyte Esterase Urine RBC Urine WBC Ur Squamous Epith Cells Urine Bacteria Ur Microscopic Review Urine Culture Comments - Rads (name of study) abd/pelvic CT Relevant Findings:: Prelim report reviewed (no noted colitis nor acute process. Large bladder volume noted. ) PD Medical Decision Making - ED course Complexity details: reviewed old records (from week ago. ), considered differential, d/w patient Reviewed Lab Results: patient has had continued lower abd pain since prior ED visit. Treated for colitis seen likely on CT abd. No change in symptoms. Has had less oral intake due to nausea. General weakness and would normally be out of bed with walker/assistance, is now unable to get up even with son's assistance. She has been in bed and son unable to take care of cleaning her adequately. Had urine and stool on perineal eara and sacral area when medics picked her up. Has large area of rash on lower back, buttocks, sacral, inguinal, and lower abd area c/w yeast infection, but with some areas of redness and superficial pustules. One was lanced by me to obtain culture. Nursing did wonderful job of cleaning her. No pressure sores per se, but appears the yeast skin infection with some cellulitic areas. General weakness though a nd pt unable to even get herself up to sitting position on her own. Needed assistance rolling to side for cleaning. This is considerable decline from her baseline of weak but uses walker to BR and around house. Repeat CT abd/pelvix did not show any acute findings. The skin rash could be combination of recent PO antibiotics and having been uncleased of stool for days. Presume/hope it will clear with frequent cleaning and good francisca care. Can give antifungal as well. Started with IV due to nausea. Also gave Clinda for concern of secondary infection (alleggic to Doxy and I a more concerned about staph coverage). Patient with weakness, skin rash acutely with cellulitic/pustular aspects. Lower abd pain without colitis finding on CT. Large bladder noted and so claire placed with large urine residual. Lower abd less hurting, so may have been just bladder. This finding was not present on CT from 10 days ago though, so may have cleared the colitis, and now with urinary retention as cause. I felt the patient would benefit from further care in hospital with treatment of the skin rash (yeast and bacterial) with general weakness. Consulted hospitalist who felt there was not admission criteria. Will consult Social Work and PT eval to see if pt might be able to do Rehab or SNF short term while improving/strengthening. This is pending further steps at this time of day. To resume evaluations and assessments in AM> I ordered most of her daily meds (the laughlin ones). Added antifungal and antibiotics for now. Care to oncoming ED physician. Departure - Departure Clinical Impression: Lower abdominal pain, Acute urinary retention, Skin yeast infection, Cellulitis, Generalized weakness, Unable to walk, Leukocytosis Condition: Stable Forms: PCP List
[2023-07-13 10:03] LABS: BILIRUBIN,URINE NEGATIVE (NEGATIVE); GLUCOSE, URINE (UA) NEGATIVE (NEGATIVE); KETONES,URINE (UA) NEGATIVE (NEGATIVE); LEUKOCYTE ESTERASE, URINE TRACE (NEGATIVE); NITRITE,URINE NEGATIVE (NEGATIVE); OCCULT BLOOD,URINE LARGE (NEGATIVE); PH,URINE 5.5 PH (5.0-7.5); PROTEIN,URINE NEGATIVE (NEGATIVE); UROBILINOGEN,URINE 0.2 (NORMAL) E.U./dL (NORMAL)
[2023-07-13 10:09] LABS: CLARITY,URINE CLEAR (CLEAR)
[2023-07-13 10:14] LABS: BACTERIA,URINE Few /HPF (None Seen); SQUAMOUS EPITHELIAL CELL,UR RARE Squamous (<= Few)
[2023-07-13] MEDS: CLINDAMYCIN 150 MG CAPSULE PO STA (10:17)
[2023-07-13] MEDS: FLUCONAZOLE 200 MG/100 ML 100 ML IV ONE (10:18)
[2023-07-13] MEDS: SODIUM CHLORIDE 0.9% 1,000 ML IV STA (10:18)
[2023-07-13 10:21] LABS: BASOPHILS % (AUTO) 0.3 %; EOSINOPHILS # (AUTO) 0.1 10^3/uL (0.0-0.7); EOSINOPHILS % (AUTO) 0.8 %; HCT - HEMATOCRIT 35.2 % (37.0-47.0); LYMPHOCYTES # (AUTO) 1.3 10^3/uL (1.5-3.5); LYMPHOCYTES % (AUTO) 9.8 %; MEAN CORPUSCULAR HEMOGLOBIN 23.3 pg (27.0-31.0); MEAN CORPUSCULAR HGB CONC 28.4 g/dL (32.0-36.0); MEAN CORPUSCULAR VOLUME 81.9 fL (81.0-99.0); MONOCYTES # (AUTO) 0.9 10^3/uL (0.0-1.0); MONOCYTES % (AUTO) 7.1 %; NEUTROPHILS # (AUTO) 10.7 10^3/uL (1.5-6.6); NEUTROPHILS % (AUTO) 81.7 %; PLT - PLATELET COUNT 535 10^3/uL (130-450); RED CELL DISTRIBUTION WIDTH 16.2 % (12.0-15.0)
[2023-07-13 10:24] LABS: SLIDE REVIEW? Indicated
[2023-07-13 10:26] LABS: INR 2.5 (0.8-1.2)
[2023-07-13] MEDS ORDERED: iohexoL-300 100 ML VIAL ONE (10:30)
[2023-07-13 10:37] LABS: ALBUMIN 3.2 g/dL (3.2-5.5); ALBUMIN/GLOBULIN RATIO 0.8 (1.0-2.2); ALKALINE PHOSPHATASE 90 IU/L (42-121); ALT ALANINE AMINOTRANSFERASE 11 IU/L (10-60); AST ASPARTATE AMINOTRANSFERASE 12 IU/L (10-42); BILIRUBIN,TOTAL 0.5 mg/dL (0.2-1.0); BUN - BLOOD UREA NITROGEN 29 mg/dL (6-20); CALCIUM 9.1 mg/dL (8.5-10.3); CARBON DIOXIDE - CO2 29 mmol/L (21-32); CHLORIDE 104 mmol/L (101-111); CK- CREATINE KINASE 28 IU/L (30-223); CREATININE 0.8 mg/dL (0.6-1.3); GFR - MDRD 70 (>89); GLUCOSE 127 mg/dL (74-104); LIPASE < 10 U/L (11-82); MAGNESIUM 1.6 mg/dL (1.7-2.3); POTASSIUM 4.2 mmol/L (3.5-4.5); SODIUM 139 mmol/L (135-145)
[2023-07-13] MEDS: KETOROLAC 15 MG/ML VIAL IVP STA ×2 (10:37→10:38)
[2023-07-13 10:44] LABS: PLATELET ESTIMATE, MANUAL NORMAL (130-450,000) (NORMAL); PLATELET MORPHOLOGY NORMAL APPEARANCE (NORMAL); RBC MORPHOLOGY (MULTIPLE) NORMAL APPEARANCE (NORMAL)
--- NOTE | 2023-07-13 11:48 | CT Report ---
PROCEDURE: Abdomen/Pelvis W INDICATIONS: persistent LLQ abd pain 2 weeks, prior ED 07/01 CONTRAST: Omni 300 100ml TECHNIQUE: After the administration of intravenous contrast, a CT scan of the abdomen and pelvis was performed. Images were recorded and evaluated at appropriate window settings. Reformats: coronal and sagittal. F or radiation dose reduction, the following was used: automated exposure control, adjustment of mA and /or kV according to patient size. COMPARISON: CT abdomen pelvis 07/02/2023, 07/05/2021 FINDINGS: Image quality: Diagnostic. Lower chest: Cardiomegaly. Liver: No solid mass. Hepatic steatosis. Gallbladder and biliary tree: Removed. 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 Spleen: No splenomegaly. Unchanged low-attenuation focus within the anterior spleen. Pancreas: No pancreatic ductal dilation. Adrenals: No adrenal nodule. Kidneys and ureters: No hydronephrosis. No renal cystic lesion which requires follow up. No solid mas s. Bilateral renal atrophy. Stomach, bowel and peritoneum: No bowel distension. No pathologic free fluid. Large hiatal hernia. Lymph nodes: No central or retroperitoneal adenopathy. Vessels: No infrarenal aortic aneurysm. PELVIS Reproductive organs: Unremarkable. Bladder: Markedly distended. Pelvic lymph nodes: No pelvic adenopathy by size criteria. Bones: No aggressive osseous abnormality. Unchanged appearance of L4 spinous tip fracture of indeterm inate age, new since 2021. Other: No significant ventral or inguinal hernia. Prior ventral hernia mesh is present. IMPRESSION: No acute intra-abdominal or pelvic process. Stable interval exam compared to prior exam. Prominent bladder distention. Reviewed by: Meghan Brown MD on 07/13/2023 11:46 AM PDT Approved by: Meghan Brown MD on 07/13/2023 11:46 AM PDT Station ID: [id number]
[2023-07-13] MEDS: iohexoL-300 100 ML VIAL IVP ONE (21:29)
[2023-07-13] MEDS: WARFARIN 5 MG TABLET PO SCH (23:17)
[2023-07-13] MEDS: ARIPiprazole 5 MG TABLET PO SCH (23:17)
[2023-07-13] MEDS: WARFARIN 1 MG TABLET PO SCH (23:18)
[2023-07-14] MEDS: CLINDAMYCIN 150 MG CAPSULE PO SCH ×2 (00:45→09:02)
[2023-07-14] MEDS: GABAPENTIN 100 MG CAPSULE PO SCH (00:45)
[2023-07-14] MEDS: METOPROLOL SUCCINATE 25 MG TABLET PO SCH (00:45)
[2023-07-14] MEDS: HYDROcod/ACETAM 5/325 MG TABLET PO PRN (00:45)
[2023-07-14] MEDS: ACETAMINOPHEN 325 MG TABLET PO SCH (00:50)
[2023-07-14] MEDS: CALCIUM CARBONATE CHEW 500 MG TABLET PO STA (02:38)
[2023-07-14] MEDS: PANTOPRAZOLE 40 MG VIAL IVP STA (02:38)
[2023-07-14] MEDS ORDERED: GABAPENTIN 100 MG CAPSULE PO SCH (08:00)
[2023-07-14] MEDS: DULoxetine 60 MG CAPSULE PO SCH (09:02)
[2023-07-14] MEDS: GABAPENTIN 300 MG CAPSULE PO SCH (09:02)
[2023-07-14] MEDS: PANTOPRAZOLE 40 MG TABLET PO SCH (09:03)
[2023-07-14] MEDS: MAGNESIUM OXIDE 400 MG TABLET PO SCH (09:03)
[2023-07-14] MEDS: FLUCONAZOLE 200 MG/100 ML 100 ML IV SCH (09:06)
[2023-07-14] MEDS: WARFARIN 1 MG TABLET PO SCH (13:35)
[2023-07-14] MEDS: NYSTATIN POWDER 15 GM TOP SCH (15:00)
[2023-07-14] MEDS: MAG HYDROX/AL HYDROX/SIMETH 30 ML UDC PO STA (15:14)
--- NOTE | 2023-07-14 15:24 | PHARMACY PROGRESS NOTE ---
- Best Possible Medication History Admit Date and Time: Processed by: Pharmacy Medications reviewed in ED?: Yes Medication History completed: In progress Patient Interview: Completed Secondary Source(s): Written medication list, Physician records, Pharmacy records, Insurance records (PATIENT UNAVAILABLE FOR INTERVIEW. MED REC COMPLETED BASED OFF OF FILL HX AND FACILITY RECORDS.) As the person ultimately responsible for medication therapy, providers are able to order a medication from an existing home medication list in [facility] via the "Reconcile Routine" prior to Confirmation of that medication by technical support consultant. Such practice is discouraged except when the physician, in their clinical judgment, deems that a medical need exists for a medication without regard to previous use.
--- NOTE | 2023-07-14 18:09 | ED Physician Documentation ---
ED Addendum - Addendum Addendum: 07/14/23 18:08 The patient was signed out to me at change of shift, pending placement in SNF by social work after being dropped off at the ED by family, stating they can't take care of her. The patient had no issues throughout the day other than asking for a dose of Maalox because she was having some heartburn. Social work did speak with her extensively but no concrete plan has been formulated yet, as we do not have an accepting facility just yet. The patient is signed out to the oncoming emergency physician at change of shift, pending final disposition.
[2023-07-15] MEDS: WARFARIN 1 MG TABLET PO SCH (13:19)
--- NOTE | 2023-07-15 18:02 | ED Physician Documentation ---
ED Addendum - Addendum Addendum: 07/15/23 17:59 Refer to social work notes. Brief summary, the patient and her son with whom she lives in he is the primary caregiver were not wanting to apply for the necessary programs to look at finding for the patient to be in a nursing home. This would involve spend down of some other assets and according to social work, patient's son was not wanting to do that. They are going to attempt to provide improved care at home. We will augment the home health referrals to include more aide help as well as wound care and nursing. The patient's yeast infection and wounds have improved just in the time that she has been here. I would continue with the antifungals both orally and topical powder as well as some oral antibiotics as there has been evidence of secondary infection in some areas. The patient was in need of some refills of prescriptions that she missed a primary care appointment as she is the time she had been here in the ER the last couple of days. I can provide a refill of the medicines needed for couple of weeks anyway until she can get back to her primary care. Disposition: Patient will be discharged home in stable condition Diagnoses: 1. General weakness 2. Candidal dermatitis 3. Secondary cellulitis 4. Acute urinary retention
[2023-07-15 18:55] VITALS: BP 136/48; O2SAT 94
--- NOTE | 2023-07-16 12:22 | ED Physician Documentation ---
ED Addendum - Addendum Addendum: 07/16/23 12:22 Culture reviewed. She is on clindamycin. Will have her stop and do amoxicillin 500 mg p.o. 3 times daily number 06/11 days instead. I sent the prescription electronically to her pharmacy and asked the nurse to call her. I also asked the nurse to make sure that she would have frequent/every 3-day INR checks while on antibiotics.
== END 2023-07-15 18:48 | disposition home or self-care (01) ==
LOC: EDUNIT# → ED 08:31 → SUPCPDRO 08:31 → ED 07-15 18:48
DX: R10.32 Left lower quadrant pain (principal); B37.2 Candidiasis of skin and nail; L03.90 Cellulitis, unspecified; D72.829 Elevated white blood cell count, unspecified; R33.9 Retention of urine, unspecified; R53.1 Weakness; R26.89 Other abnormalities of gait and mobility; I10 Essential (primary) hypertension; E11.9 Type 2 diabetes mellitus without complications; I48.91 Unspecified atrial fibrillation; Z79.899 Other long term (current) drug therapy; Z79.01 Long term (current) use of anticoagulants; Z79.82 Long term (current) use of aspirin; Z79.02 Long term (current) use of antithrombotics/antiplatelets; Z75.1 Person awaiting admission to adequate facility elsewhere
CPT/HCPCS: 36415; 74177; 80053; 81001; 82550; 83690; 83735; 85025; 85610; 87070; 87077; 87086; 87181; 87205; 96365; 96366; 96368; 96375; 97162; 97166; 99283; 99284; A9270; Q9967; 81003

== ENCOUNTER 2023-07-15 18:52 | Outpatient (CLI) | payer MEDICARE, BC | END 2023-07-15 23:59 | disposition home or self-care (01) | LOC: EMS 18:52 | PROVIDERS: ATTEND Emergency Medicine | DX: Z74.01 Bed confinement status (principal) | CPT/HCPCS: A0425; A0428 ==

== ENCOUNTER 2023-08-04 15:17 | Emergency (ER) | payer MEDICARE, BC ==
--- NOTE | 2023-08-04 15:28 | ED Physician Documentation ---
History of Present Illness - Stated complaint Stated Complaint: WOUNDS - History obtained from History obtained from: Patient, EMS - Additonal information Additional information: Has chronic wounds. In wound care with Dr Narayan. Sent in by HH RN for concern of worse looking sacral wound. No fevers. 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: None : Kidney stones HEENT: Chronic vision loss Psych: Depression, Anxiety Musculoskeletal: Osteoarthritis, Chronic back pain Derm: None - Past Surgical History Past Surgical History: Yes General: Cholecystectomy Ortho: Knee replacement, Other HEENT: Cataracts - Present Medications Home Medications: Ambulatory Orders Medication Instructions Recorded Confirmed lisinopriL [Lisinopril] 5 mg PO DAILY 03/23/15 07/14/23 Duloxetine HCl [Cymbalta] 60 mg PO DAILY 07/19/20 07/14/23 Gabapentin [Neurontin] 800 mg PO TID 07/19/20 07/19/20 Oxybutynin [Ditropan] 5 mg PO BID 07/19/20 07/19/20 Pantoprazole [Protonix] 40 mg PO BID 07/19/20 07/14/23 Potassium Chloride 10 meq PO UD 07/19/20 07/14/23 Solifenacin Succinate [Vesicare] 5 mg PO DAILY 07/19/20 07/14/23 Aspirin Chewable [St Abdiel 81 mg PO DAILY #30 tablet 07/29/20 Aspirin] Clopidogrel [Plavix] 75 mg PO DAILY 24 Days #24 tablet 07/29/20 HYDROcod/ACETAM 5/325 [Narka 5/325] 1 ea PO Q6H PRN #10 tablet 07/02/23 L.acid/L.casei/B.bif/B.gaby/Fos 1 each PO TID 7 Days #20 cap 07/02/23 [Probiotic Blend Capsule] Ondansetron Odt [Zofran] 4 mg TL Q6H PRN #10 tablet 07/02/23 Gabapentin [Neurontin] 600 mg PO TID 07/13/23 07/14/23 ARIPiprazole [Abilify] 10 mg PO QPM #20 tab 07/15/23 Atorvastatin Calcium [Lipitor] 80 mg PO QPM #30 tab 07/15/23 DULoxetine [Cymbalta] 60 mg PO DAILY #30 cap 07/15/23 Fluconazole [Diflucan] 100 mg PO Q2D #4 tablet 07/15/23 Furosemide [Lasix] 20 mg PO DAILY #30 tab 07/15/23 Metoprolol Succinate [Toprol Xl] 25 mg PO DAILY #30 tab 07/15/23 Nystatin [Klayesta] 1 applic TP BID #60 gm 07/15/23 Potassium Chloride 10 meq PO DAILY #30 tab 07/15/23 Solifenacin Succinate [Vesicare] 5 mg PO DAILY #30 tablet 07/15/23 Warfarin [Coumadin] 1.5 mg PO SUMOSA #15 tab 07/15/23 Warfarin [Coumadin] 3 mg PO TUWETH #15 tab 07/15/23 clindamycin HCL [Clindamycin HCl] 300 mg PO TID 7 Days #15 cap 07/15/23 oxyCODONE [Roxicodone] 5 mg PO Q6H PRN #20 tab 07/15/23 Amoxicillin 500 mg PO TID #21 cap 07/16/23 - Allergies Allergies/Adverse Reactions: Allergies Allergy/AdvReac Type Severity Reaction Status Date / Time phenobarbital Allergy Hives Verified 08/04/23 15:37 morphine AdvReac Intermediate Hallucinati Verified 08/04/23 15:37 ons doxycycline AdvReac Nausea Verified 08/04/23 15:37 - Social History Does the pt smoke?: No Smoking Status: Never smoker Does the pt drink ETOH?: No Does the pt have substance abuse?: Yes - Immunizations Immunizations are current?: Yes - POLST Patient has POLST: No PD ED PE NORMAL - Vitals Vital signs reviewed: Yes - General General: Alert and oriented X 3, No acute distress - Derm Derm: Other (Stage 1-2 noninfected small presure ulcer sacrum. Marquez in situ. Small scabbed wounds without infection on legs.) - Neuro Neuro: Alert and oriented X 3 Results - Vitals Vitals: Vital Signs - 24 hr 08/04/23 08/04/23 15:32 17:07 Temperature 37 C Heart Rate 83 89 Respiratory 16 18 Rate Blood Pressure 130/96 H 122/51 L O2 Saturation 97 98 Oxygen O2 Source Room air PD Medical Decision Making - ED course ED course: Wounds do not look like they need any specific or inpatient care at this point. She is in wound care which is appropriate. Departure - Departure Disposition: 01 Home, Self Care Clinical Impression: Non-pressure chronic ulcer of other part of left lower leg limited to breakdown of skin, Local infection of the skin and subcutaneous tissue, unspecified Condition: Stable Record reviewed to determine appropriate education?: Yes Instructions: Pressure Ulcer Tx Clean Dress Comments: Wounds not looking to bad to me today. No sign of current infection. Recommend you followup in wound care DELORIS. Return if worse. Forms: PCP List Discharge Date/Time: 08/04/23 17:10
[2023-08-04 17:09] VITALS: BP 122/51; O2SAT 98
== END 2023-08-04 17:10 | disposition home or self-care (01) ==
LOC: EDUNIT# → ED 15:17
DX: E11.622 Type 2 diabetes mellitus with other skin ulcer (principal); L97.821 Non-pressure chronic ulcer of other part of left lower leg limited to breakdown of skin; Z79.01 Long term (current) use of anticoagulants; Z86.718 Personal history of other venous thrombosis and embolism; I48.91 Unspecified atrial fibrillation
CPT/HCPCS: 99283

== ENCOUNTER 2023-08-13 08:00 | Outpatient (CLI) | payer MEDICARE, BC | END 2023-08-13 23:59 | disposition home or self-care (01) | LOC: PC 08:00 | PROVIDERS: ATTEND Nurse Practitioner Gerontology | DX: Z51.5 Encounter for palliative care (principal); R41.3 Other amnesia; Z74.01 Bed confinement status; E11.40 Type 2 diabetes mellitus with diabetic neuropathy, unspecified; G60.0 Hereditary motor and sensory neuropathy; E11.621 Type 2 diabetes mellitus with foot ulcer; L97.429 Non-pressure chronic ulcer of left heel and midfoot with unspecified severity; L97.419 Non-pressure chronic ulcer of right heel and midfoot with unspecified severity; I48.91 Unspecified atrial fibrillation; Z79.01 Long term (current) use of anticoagulants; R41.89 Other symptoms and signs involving cognitive functions and awareness; Z96.0 Presence of urogenital implants; R60.0 Localized edema; Z65.8 Other specified problems related to psychosocial circumstances; Z71.89 Other specified counseling | CPT/HCPCS: 99350; G0318; 99417 ==

== ENCOUNTER 2023-08-27 14:30 | Outpatient (CLI) | payer MEDICARE, BC | END 2023-08-27 23:59 | disposition home or self-care (01) | LOC: PC 14:30 | PROVIDERS: ATTEND Nurse Practitioner Gerontology | DX: Z51.5 Encounter for palliative care (principal); E11.42 Type 2 diabetes mellitus with diabetic polyneuropathy; G89.29 Other chronic pain; M25.511 Pain in right shoulder; L97.529 Non-pressure chronic ulcer of other part of left foot with unspecified severity; I48.0 Paroxysmal atrial fibrillation; I50.30 Unspecified diastolic (congestive) heart failure; F03.A0 Unspecified dementia, mild, without behavioral disturbance, psychotic disturbance, mood disturbance, and anxiety; E11.22 Type 2 diabetes mellitus with diabetic chronic kidney disease; N18.32 Chronic kidney disease, stage 3b; G60.0 Hereditary motor and sensory neuropathy; I13.0 Hypertensive heart and chronic kidney disease with heart failure and stage 1 through stage 4 chronic kidney disease, or unspecified chronic kidney disease; Z65.8 Other specified problems related to psychosocial circumstances; Z79.01 Long term (current) use of anticoagulants; Z87.891 Personal history of nicotine dependence | CPT/HCPCS: 99350 ==

== ENCOUNTER 2023-09-06 08:00 | Outpatient (CLI) | payer MEDICARE, BC | END 2023-09-06 23:59 | disposition home or self-care (01) | LOC: PC 08:00 | PROVIDERS: ATTEND Nurse Practitioner Gerontology | DX: Z51.5 Encounter for palliative care (principal); G89.29 Other chronic pain; M79.2 Neuralgia and neuritis, unspecified; M79.10 Myalgia, unspecified site; F03.A0 Unspecified dementia, mild, without behavioral disturbance, psychotic disturbance, mood disturbance, and anxiety; E11.22 Type 2 diabetes mellitus with diabetic chronic kidney disease; N18.32 Chronic kidney disease, stage 3b; M25.511 Pain in right shoulder; E11.42 Type 2 diabetes mellitus with diabetic polyneuropathy; L97.529 Non-pressure chronic ulcer of other part of left foot with unspecified severity; M54.50 Low back pain, unspecified; Z65.8 Other specified problems related to psychosocial circumstances; Z71.89 Other specified counseling; Z74.01 Bed confinement status; Z96.0 Presence of urogenital implants | CPT/HCPCS: 99350; G0318; 99417 ==

== ENCOUNTER 2023-09-10 12:06 | Outpatient (CLI) | payer MEDICARE, BC | END 2023-09-10 23:59 | disposition home or self-care (01) | LOC: PC 12:06 | PROVIDERS: ATTEND Nurse Practitioner Gerontology | DX: Z51.5 Encounter for palliative care (principal); N39.0 Urinary tract infection, site not specified; Z96.0 Presence of urogenital implants; M25.511 Pain in right shoulder; Z91.A98 Caregiver's noncompliance with patient's other medical treatment and regimen for other reason | CPT/HCPCS: 99350 ==

== ENCOUNTER 2023-09-14 02:29 | Outpatient (CLI) | payer MEDICARE, BC | END 2023-09-14 23:49 | disposition critical access hospital (66) | LOC: EMS 02:29 | PROVIDERS: ATTEND Emergency Medicine | DX: R39.89 Other symptoms and signs involving the genitourinary system (principal); T83.098A Other mechanical complication of other urinary catheter, initial encounter; R19.34 Left lower quadrant abdominal rigidity; R19.33 Right lower quadrant abdominal rigidity; M25.511 Pain in right shoulder; Z91.81 History of falling | CPT/HCPCS: A0425; A0429 ==

== ENCOUNTER 2023-09-14 02:49 | Emergency (ER) | payer MEDICARE, BC ==
--- NOTE | 2023-09-14 03:03 | ED Physician Documentation ---
History of Present Illness - Stated complaint Stated Complaint: CATH ISSUE - History obtained from History obtained from: Patient, EMS - Additonal information Additional information: The patient comes to the emergency department via EMS for chief complaint of "I feel like my catheter is clogged". She states she has had some suprapubic discomfort and feels like her catheter is not draining as much lately. She denies fevers, chills, nausea, or vomiting. She lives at home with her son and is apparently largely bedbound. She had a fall about a month ago and injured her right shoulder and never sought any medical attention for. She states she would like an x-ray because the pain is persistent and she wants to know "if something is wrong". No other complaints at this time. 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 : Kidney stones HEENT: Chronic vision loss Psych: Depression, Anxiety Musculoskeletal: Osteoarthritis, Chronic back pain Derm: None - Past Surgical History Past Surgical History: Yes General: Cholecystectomy Ortho: Knee replacement, Other HEENT: Cataracts - Present Medications Home Medications: Ambulatory Orders Medication Instructions Recorded Confirmed lisinopriL [Lisinopril] 5 mg PO DAILY 03/23/15 07/14/23 Duloxetine HCl [Cymbalta] 60 mg PO DAILY 07/19/20 07/14/23 Gabapentin [Neurontin] 800 mg PO TID 07/19/20 07/19/20 Oxybutynin [Ditropan] 5 mg PO BID 07/19/20 07/19/20 Pantoprazole [Protonix] 40 mg PO BID 07/19/20 07/14/23 Potassium Chloride 10 meq PO UD 07/19/20 07/14/23 Solifenacin Succinate [Vesicare] 5 mg PO DAILY 07/19/20 07/14/23 Aspirin Chewable [St Abdiel 81 mg PO DAILY #30 tablet 07/29/20 Aspirin] Clopidogrel [Plavix] 75 mg PO DAILY 24 Days #24 tablet 07/29/20 HYDROcod/ACETAM 5/325 [Holiday 5/325] 1 ea PO Q6H PRN #10 tablet 07/02/23 L.acid/L.casei/B.bif/B.gaby/Fos 1 each PO TID 7 Days #20 cap 07/02/23 [Probiotic Blend Capsule] Ondansetron Odt [Zofran] 4 mg TL Q6H PRN #10 tablet 07/02/23 Gabapentin [Neurontin] 600 mg PO TID 07/13/23 07/14/23 ARIPiprazole [Abilify] 10 mg PO QPM #20 tab 07/15/23 Atorvastatin Calcium [Lipitor] 80 mg PO QPM #30 tab 07/15/23 DULoxetine [Cymbalta] 60 mg PO DAILY #30 cap 07/15/23 Fluconazole [Diflucan] 100 mg PO Q2D #4 tablet 07/15/23 Furosemide [Lasix] 20 mg PO DAILY #30 tab 07/15/23 Metoprolol Succinate [Toprol Xl] 25 mg PO DAILY #30 tab 07/15/23 Nystatin [Klayesta] 1 applic TP BID #60 gm 07/15/23 Potassium Chloride 10 meq PO DAILY #30 tab 07/15/23 Solifenacin Succinate [Vesicare] 5 mg PO DAILY #30 tablet 07/15/23 Warfarin [Coumadin] 1.5 mg PO SUMOSA #15 tab 07/15/23 Warfarin [Coumadin] 3 mg PO TUWETH #15 tab 07/15/23 clindamycin HCL [Clindamycin HCl] 300 mg PO TID 7 Days #15 cap 07/15/23 oxyCODONE [Roxicodone] 5 mg PO Q6H PRN #20 tab 07/15/23 Amoxicillin 500 mg PO TID #21 cap 07/16/23 - Allergies Allergies/Adverse Reactions: Allergies Allergy/AdvReac Type Severity Reaction Status Date / Time phenobarbital Allergy Hives Verified 08/04/23 15:37 morphine AdvReac Intermediate Hallucinati Verified 08/04/23 15:37 ons doxycycline AdvReac Nausea Verified 08/04/23 15:37 - Social History Does the pt smoke?: No Smoking Status: Never smoker Does the pt drink ETOH?: No Does the pt have substance abuse?: Yes - Immunizations Immunizations are current?: Yes - POLST Patient has POLST: No PD ED PE NORMAL - Vitals Vital signs reviewed: Yes - General General: No acute distress, Well developed/nourished, Other (Morbidly obese patient, alert, grossly oriented.) - HEENT HEENT: Atraumatic, EOMI, Moist mucous membranes - Neck Neck: Supple, no meningeal sign - Cardiac Cardiac: RRR, No murmur - Respiratory Respiratory: No respiratory distress, Clear bilaterally - Abdomen Abdomen: Soft, Non tender, Non distended - Derm Derm: Normal color, Warm and dry, No rash - Extremities Extremities: No deformity, Other (Mild tenderness palpation over over the lateral shoulder on the right.) - Neuro Neuro: Alert and oriented X 3, press breaker 2-12 intact, No motor deficit, No sensory deficit, Normal speech - Psych Psych: Normal mood, Normal affect Results - Vitals Vitals: Vital Signs - 24 hr 09/14/23 09/14/23 03:30 04:52 Temperature 36.6 C Heart Rate 78 60 Respiratory 18 18 Rate Blood Pressure 151/58 H 155/70 H O2 Saturation 98 97 Oxygen O2 Source Room air - Rads (name of study) L shoulder XR Relevant Findings:: Final report received, See rad report (neg) PD Medical Decision Making - ED course Complexity details: reviewed results, re-evaluated patient, considered differential, d/w patient ED course: The patient was worked up with a right shoulder x-ray and catheter was changed. The shoulder x-ray series was negative. THe pt had no sx consistent with UTI, and given that she is likely already colonized, due to her chronic indwelling Marquez, I did not feel a UA would be helpful. The pt was stable for d/c home. We have discussed the need for follow-up and the usual indications for return. Departure - Departure Disposition: 01 Home, Self Care Clinical Impression: Encounter for Marquez catheter replacement Shoulder pain Qualifiers: Chronicity: acute Laterality: right Qualified Code(s): M25.511 - Pain in right shoulder Condition: Stable Instructions: ED Catheter Care Marquez, ED Sprain Shoulder Comments: Your Marquez catheter has been replaced tonight in the emergency department. Your shoulder x-ray looks good. Most likely, you sprained or strained your shoulder, and then kept it in a tensed up, stiff position and did not move it enough after the injury. You have now developed a stiff, painful shoulder. What you need to do is try to move your shoulder each day, and try to push to move it a little more and a little more each time. This will help to you to get some of your range of motion back. There are no broken bones on your x-ray. Forms: PCP List Discharge Date/Time: 09/14/23 04:52
[2023-09-14 05:01] VITALS: BP 155/70; O2SAT 97
--- NOTE | 2023-09-14 08:08 | XRAY Report ---
PROCEDURE: Shoulder 2+V RT INDICATIONS: fall/pain TECHNIQUE: 3 views of the shoulder were acquired. COMPARISON: None. FINDINGS: Bones: No fractures or dislocations. No suspicious bony lesions. Moderate acromioclavicular and gle nohumeral joint degeneration. Visualized ribs appear intact. Soft tissues: No suspicious soft tissue calcifications. The visualized lungs are within normal limi ts. IMPRESSION: No acute bony abnormality. Moderate degenerative joint disease. If clinical symptoms persist or there is high clinical suspicion for internal derangement, consider MRI. Findings are concordant with preliminary interpretation provided by [facility]. Reviewed by: Sarabjit Sheridan MD on 09/14/2023 8:06 AM PDT Approved by: Sarabjit Sheridan MD on 09/14/2023 8:06 AM PDT Station ID: [id number]
== END 2023-09-14 04:52 | disposition home or self-care (01) ==
LOC: EDUNIT# → ED 02:49
DX: T83.098A Other mechanical complication of other urinary catheter, initial encounter (principal); M25.511 Pain in right shoulder; I10 Essential (primary) hypertension; I48.91 Unspecified atrial fibrillation; E11.9 Type 2 diabetes mellitus without complications; Z79.899 Other long term (current) drug therapy; Z79.82 Long term (current) use of aspirin; Z79.01 Long term (current) use of anticoagulants
CPT/HCPCS: 51702; 99283

== ENCOUNTER 2023-09-14 04:55 | Outpatient (CLI) | payer MEDICARE, BC | END 2023-09-14 23:47 | disposition home or self-care (01) | LOC: EMS 04:55 | PROVIDERS: ATTEND Emergency Medicine | DX: Z46.6 Encounter for fitting and adjustment of urinary device (principal); Z74.01 Bed confinement status | CPT/HCPCS: A0425; A0428 ==

== ENCOUNTER 2023-09-17 08:00 | Outpatient (CLI) | payer MEDICARE, BC | END 2023-09-17 23:59 | disposition home or self-care (01) | LOC: PC 08:00 | PROVIDERS: ATTEND Nurse Practitioner Gerontology | DX: Z51.5 Encounter for palliative care (principal); G60.0 Hereditary motor and sensory neuropathy | CPT/HCPCS: 99426; 99427 ==

== ENCOUNTER 2023-09-21 14:00 | Outpatient (CLI) | payer MEDICARE, BC | END 2023-09-21 23:59 | disposition home or self-care (01) | LOC: PC 14:00 | PROVIDERS: ATTEND Nurse Practitioner Adult Health | DX: Z51.5 Encounter for palliative care (principal); F03.C18 Unspecified dementia, severe, with other behavioral disturbance; N39.0 Urinary tract infection, site not specified; M25.511 Pain in right shoulder; G60.0 Hereditary motor and sensory neuropathy; F41.9 Anxiety disorder, unspecified; F32.A Depression, unspecified; R15.9 Full incontinence of feces; G89.29 Other chronic pain; Z71.89 Other specified counseling; Z74.01 Bed confinement status; Z91.A98 Caregiver's noncompliance with patient's other medical treatment and regimen for other reason | CPT/HCPCS: 99205 ==

== ENCOUNTER 2023-09-28 15:17 | Outpatient (CLI) | payer MEDICARE, BC | END 2023-09-28 23:59 | LOC: EMS 15:17 | PROVIDERS: ATTEND Nurse Practitioner Adult Health | DX: R53.1 Weakness (principal); Z74.01 Bed confinement status; F03.B0 Unspecified dementia, moderate, without behavioral disturbance, psychotic disturbance, mood disturbance, and anxiety; M25.511 Pain in right shoulder; G60.0 Hereditary motor and sensory neuropathy | CPT/HCPCS: A0425; A0428 ==

== ENCOUNTER 2023-10-12 12:01 | Outpatient (CLI) | payer MEDICARE, BC ==
[2023-10-12 12:16] LABS: BASOPHILS % (AUTO) 0.2 %; EOSINOPHILS # (AUTO) 0.1 10^3/uL (0.0-0.7); EOSINOPHILS % (AUTO) 0.9 %; HCT - HEMATOCRIT 28.9 % (37.0-47.0); HGB - HEMOGLOBIN 8.1 g/dL (12.0-16.0); LYMPHOCYTES # (AUTO) 1.7 10^3/uL (1.5-3.5); LYMPHOCYTES % (AUTO) 10.2 %; MEAN CORPUSCULAR HEMOGLOBIN 22.3 pg (27.0-31.0); MEAN CORPUSCULAR VOLUME 79.6 fL (81.0-99.0); MEAN PLATELET VOLUME 10.5 fL (7.9-10.8); MONOCYTES # (AUTO) 1.1 10^3/uL (0.0-1.0); MONOCYTES % (AUTO) 6.8 %; NEUTROPHILS # (AUTO) 13.3 10^3/uL (1.5-6.6); NEUTROPHILS % (AUTO) 81.3 %; PLT - PLATELET COUNT 369 10^3/uL (130-450); RED BLOOD COUNT 3.63 10^6/uL (4.20-5.40); RED CELL DISTRIBUTION WIDTH 18.6 % (12.0-15.0); WHITE BLOOD COUNT 16.4 x10^3/uL (4.8-10.8)
[2023-10-12 12:35] LABS: ALBUMIN 3.2 g/dL (3.2-5.5); ALBUMIN/GLOBULIN RATIO 0.9 (1.0-2.2); BILIRUBIN,TOTAL 0.4 mg/dL (0.2-1.0); CALCIUM 8.7 mg/dL (8.5-10.3); CREATININE 0.7 mg/dL (0.6-1.3); POTASSIUM 3.2 mmol/L (3.5-4.5); TOTAL PROTEIN 6.9 g/dL (6.4-8.9)
[2023-10-12 14:40] LABS: PLATELET ESTIMATE, MANUAL NORMAL (130-450,000) (NORMAL); PLATELET MORPHOLOGY NORMAL APPEARANCE (NORMAL); SLIDE REVIEW? Indicated
== END 2023-10-12 12:02 | disposition home or self-care (01) ==
LOC: LAB.R 12:01
PROVIDERS: ATTEND Family Medicine
DX: E78.5 Hyperlipidemia, unspecified (principal); R79.9 Abnormal finding of blood chemistry, unspecified; N18.32 Chronic kidney disease, stage 3b
CPT/HCPCS: 80053; 85025

== ENCOUNTER 2023-10-17 08:00 | Outpatient (CLI) | payer MEDICARE, BC | END 2023-10-17 23:59 | disposition home or self-care (01) | LOC: PC 08:00 | PROVIDERS: ATTEND Nurse Practitioner Gerontology | DX: Z51.5 Encounter for palliative care (principal); G60.0 Hereditary motor and sensory neuropathy | CPT/HCPCS: 99426; 99427 ==

== ENCOUNTER 2023-10-25 14:32 | Outpatient (CLI) | payer MEDICARE, BC ==
--- NOTE | 2023-10-25 15:58 | XRAY Report ---
PROCEDURE: Humerus RT INDICATIONS: INCREASED PAIN TECHNIQUE: 3 views of the humerus were acquired. COMPARISON: Right shoulder radiograph on the same day and 09/14/2023. FINDINGS: Bones: No fractures or dislocations. No suspicious bony lesions. Soft tissues: No suspicious soft tissue calcifications or masses. IMPRESSION: No acute humeral fracture or dislocation. Right acromioclavicular joint osteoarthritis. No gross soft tissue abnormalities. Reviewed by: John Herring MD on 10/25/2023 3:57 PM PDT Approved by: John Herring MD on 10/25/2023 3:57 PM PDT Station ID: [id number]
--- NOTE | 2023-10-25 15:59 | XRAY Report ---
PROCEDURE: Shoulder 2+V RT INDICATIONS: PAIN IN RIGHT SHOULDER TECHNIQUE: 2 views of the shoulder were acquired. COMPARISON: Right shoulder radiograph dated 09/06/2023. FINDINGS: Bones: Moderate acromioclavicular joint osteoarthritic changes are seen. Superior displacement of hu meral head in relation to glenoid is also noted. No suspicious bony lesions. Visualized ribs appear intact. Soft tissues: No suspicious soft tissue calcifications. The visualized lungs are within normal limi ts. IMPRESSION: No acute right shoulder fracture or dislocation. Moderate acromioclavicular joint osteoar thritis. Superior migration of humeral head in relation to glenoid with loss of subacromial space con cerning for rotator cuff tendon rupture. Reviewed by: John Herring MD on 10/25/2023 3:58 PM PDT Approved by: John Herring MD on 10/25/2023 3:58 PM PDT Station ID: [id number]
== END 2023-10-25 14:33 | disposition home or self-care (01) ==
LOC: DI 14:32
PROVIDERS: ATTEND Family Medicine
DX: M19.011 Primary osteoarthritis, right shoulder (principal)

== ENCOUNTER 2023-11-05 04:35 | Outpatient (CLI) | payer MEDICARE, BC | END 2023-11-05 23:59 | disposition critical access hospital (66) | LOC: EMS 04:35 | DX: R53.81 Other malaise (principal); R50.9 Fever, unspecified; R09.89 Other specified symptoms and signs involving the circulatory and respiratory systems; I48.91 Unspecified atrial fibrillation; R39.89 Other symptoms and signs involving the genitourinary system; Z99.81 Dependence on supplemental oxygen | CPT/HCPCS: A0425; A0429 ==

== ENCOUNTER 2023-11-05 04:44 | Inpatient (IN) | payer MEDICARE, BC ==
[2023-11-05 05:09] LABS: BASOPHILS # (AUTO) 0.1 10^3/uL (0.0-0.1); BASOPHILS % (AUTO) 0.3 %; EOSINOPHILS # (AUTO) 0.2 10^3/uL (0.0-0.7); EOSINOPHILS % (AUTO) 0.8 %; HCT - HEMATOCRIT 30.8 % (37.0-47.0); HGB - HEMOGLOBIN 8.8 g/dL (12.0-16.0); LYMPHOCYTES # (AUTO) 0.9 10^3/uL (1.5-3.5); LYMPHOCYTES % (AUTO) 4.9 %; MEAN CORPUSCULAR HEMOGLOBIN 21.9 pg (27.0-31.0); MEAN CORPUSCULAR HGB CONC 28.6 g/dL (32.0-36.0); MEAN CORPUSCULAR VOLUME 76.8 fL (81.0-99.0); MEAN PLATELET VOLUME 9.7 fL (7.9-10.8); MONOCYTES # (AUTO) 1.1 10^3/uL (0.0-1.0); MONOCYTES % (AUTO) 6.1 %; NEUTROPHILS # (AUTO) 15.7 10^3/uL (1.5-6.6); NEUTROPHILS % (AUTO) 87.5 %; PLT - PLATELET COUNT 407 10^3/uL (130-450); RED BLOOD COUNT 4.01 10^6/uL (4.20-5.40); RED CELL DISTRIBUTION WIDTH 18.1 % (12.0-15.0)
[2023-11-05] MEDS: SODIUM CHLORIDE 0.9% 2,000 ML IV STA (05:13)
[2023-11-05] MEDS: ACETAMINOPHEN 325 MG TABLET PO STA (05:17)
[2023-11-05 05:22] LABS: BILIRUBIN,URINE SMALL (NEGATIVE); GLUCOSE, URINE (UA) NEGATIVE (NEGATIVE); KETONES,URINE (UA) TRACE mg/dL (NEGATIVE); LEUKOCYTE ESTERASE, URINE SMALL (NEGATIVE); NITRITE,URINE POSITIVE (NEGATIVE); OCCULT BLOOD,URINE NEGATIVE (NEGATIVE); PH,URINE 8.5 PH (5.0-7.5); PROTEIN,URINE >=300 mg/dL (NEGATIVE); UROBILINOGEN,URINE 0.2 (NORMAL) E.U./dL (NORMAL)
[2023-11-05 05:24] LABS: CLARITY,URINE CLOUDY (CLEAR)
[2023-11-05] MEDS ORDERED: cefTRIAXone 2 GM VIAL ONE (05:25)
[2023-11-05 05:26] LABS: ALBUMIN 3.3 g/dL (3.2-5.5); ALBUMIN/GLOBULIN RATIO 0.7 (1.0-2.2); ALKALINE PHOSPHATASE 88 IU/L (42-121); ALT ALANINE AMINOTRANSFERASE 8 IU/L (10-60); AST ASPARTATE AMINOTRANSFERASE 13 IU/L (10-42); BILIRUBIN,TOTAL 0.6 mg/dL (0.2-1.0); BUN - BLOOD UREA NITROGEN 27 mg/dL (6-20); CALCIUM 9.1 mg/dL (8.5-10.3); CARBON DIOXIDE - CO2 34 mmol/L (21-32); CHLORIDE 99 mmol/L (101-111); CREATININE 0.7 mg/dL (0.6-1.3); GFR - MDRD 82 (>89); GLUCOSE 157 mg/dL (74-104); LIPASE < 10 U/L (11-82); POTASSIUM 3.6 mmol/L (3.5-4.5); SODIUM 140 mmol/L (135-145); TOTAL PROTEIN 7.8 g/dL (6.4-8.9)
[2023-11-05] MEDS: cefTRIAXone 2 GM in SODIUM CHLORIDE 0.9% MINIBAG 100 ML IV STA (05:26)
[2023-11-05 05:27] LABS: INR 3.8 (0.8-1.2); PT - PROTHROMBIN TIME 38.6 secs (9.9-12.6)
--- NOTE | 2023-11-05 05:37 | ED Physician Documentation ---
History of Present Illness - Stated complaint Stated Complaint: FEVER - Chief complaint Chief Complaint: Fever - History obtained from History obtained from: Patient, EMS - Additonal information Additional information: 72yF with pmh htn, afib on warfarin, dementia, presents from [facility] with fever and rapid heart rate. patient c/o shoulder pain but denies urinary sx or abdominal pain. she has chronic indwelling claire. sepsis code called on arrival. further history limited by patient acuity. 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 : Kidney stones HEENT: Chronic vision loss Psych: Depression, Anxiety Musculoskeletal: Osteoarthritis, Chronic back pain Derm: None - Past Surgical History Past Surgical History: Yes General: Cholecystectomy Ortho: Knee replacement, Other HEENT: Cataracts - Present Medications Home Medications: Ambulatory Orders Medication Instructions Recorded Confirmed lisinopriL [Lisinopril] 5 mg PO DAILY 03/23/15 07/14/23 Duloxetine HCl [Cymbalta] 60 mg PO DAILY 07/19/20 07/14/23 Gabapentin [Neurontin] 800 mg PO TID 07/19/20 07/19/20 Oxybutynin [Ditropan] 5 mg PO BID 07/19/20 07/19/20 Pantoprazole [Protonix] 40 mg PO BID 07/19/20 07/14/23 Potassium Chloride 10 meq PO UD 07/19/20 07/14/23 Solifenacin Succinate [Vesicare] 5 mg PO DAILY 07/19/20 07/14/23 Aspirin Chewable [St Abdiel 81 mg PO DAILY #30 tablet 07/29/20 Aspirin] Clopidogrel [Plavix] 75 mg PO DAILY 24 Days #24 tablet 07/29/20 HYDROcod/ACETAM 5/325 [[place] 5/325] 1 ea PO Q6H PRN #10 tablet 07/02/23 L.acid/L.casei/B.bif/B.gaby/Fos 1 each PO TID 7 Days #20 cap 07/02/23 [Probiotic Blend Capsule] Ondansetron Odt [Zofran] 4 mg TL Q6H PRN #10 tablet 07/02/23 Gabapentin [Neurontin] 600 mg PO TID 07/13/23 07/14/23 ARIPiprazole [Abilify] 10 mg PO QPM #20 tab 07/15/23 Atorvastatin Calcium [Lipitor] 80 mg PO QPM #30 tab 07/15/23 DULoxetine [Cymbalta] 60 mg PO DAILY #30 cap 07/15/23 Fluconazole [Diflucan] 100 mg PO Q2D #4 tablet 07/15/23 Furosemide [Lasix] 20 mg PO DAILY #30 tab 07/15/23 Metoprolol Succinate [Toprol Xl] 25 mg PO DAILY #30 tab 07/15/23 Nystatin [Klayesta] 1 applic TP BID #60 gm 07/15/23 Potassium Chloride 10 meq PO DAILY #30 tab 07/15/23 Solifenacin Succinate [Vesicare] 5 mg PO DAILY #30 tablet 07/15/23 Warfarin [Coumadin] 1.5 mg PO SUMOSA #15 tab 07/15/23 Warfarin [Coumadin] 3 mg PO TUWETH #15 tab 07/15/23 clindamycin HCL [Clindamycin HCl] 300 mg PO TID 7 Days #15 cap 07/15/23 oxyCODONE [Roxicodone] 5 mg PO Q6H PRN #20 tab 07/15/23 Amoxicillin 500 mg PO TID #21 cap 07/16/23 - Allergies Allergies/Adverse Reactions: Allergies Allergy/AdvReac Type Severity Reaction Status Date / Time phenobarbital Allergy Hives Verified 11/05/23 04:59 morphine AdvReac Intermediate Hallucinati Verified 11/05/23 04:59 ons doxycycline AdvReac Nausea Verified 11/05/23 04:59 - Social History Does the pt smoke?: No Smoking Status: Never smoker Does the pt drink ETOH?: No Does the pt have substance abuse?: Yes - Immunizations Immunizations are current?: Yes - POLST Patient has POLST: Yes PD ED PE NORMAL - Vitals Vital signs reviewed: Yes - General General: Alert and oriented X 3, No acute distress, Other (deconditioned appearing) - HEENT HEENT: Atraumatic, PERRL, EOMI, Moist mucous membranes, Pharynx benign - Neck Neck: Supple, no meningeal sign - Cardiac Cardiac: Other (tachycardic rate, irregular rhythm) - Respiratory Respiratory: No respiratory distress, Clear bilaterally - Abdomen Abdomen: Non tender, Non distended - Female Female : Other (chronic indwelling claire) - Derm Derm: Normal color, Warm and dry - Extremities Extremities: No deformity Results - Vitals Vitals: Vital Signs - 24 hr 11/05/23 11/05/23 11/05/23 04:45 04:52 05:22 Temperature 36.7 C 37.0 C Heart Rate 150 H 149 H Respiratory 24 18 Rate Blood Pressure 104/67 88/76 L O2 Saturation 90 L 98 If not protocol 2 : Oxygen Flow, liters/minute 11/05/23 11/05/23 11/05/23 05:30 05:42 06:00 Temperature 37 C Heart Rate 125 H 137 H Respiratory 16 18 Rate Blood Pressure 96/56 L 97/55 L O2 Saturation 97 99 If not protocol 2 2 : Oxygen Flow, liters/minute 11/05/23 11/05/23 11/05/23 06:30 07:00 07:30 Temperature Heart Rate 123 H 120 H 103 H Respiratory 18 20 16 Rate Blood Pressure 94/44 L 89/41 L 90/51 L O2 Saturation 96 99 99 If not protocol 2 2 2 : Oxygen Flow, liters/minute Oxygen O2 Source Nasal cannula Oxygen Flow Rate 4 - EKG (time done) 0504 EKG releavant findings:: EKG personally interpreted by author of this note. Relevant findings are: Rate: Rate (enter#) (161) Rhythm: Atrial fibrillation - Labs Labs: Laboratory Tests 11/05/23 11/05/23 11/05/23 04:58 04:58 04:58 WBC 18.0 H RBC 4.01 L Hgb 8.8 L Hct 30.8 L MCV 76.8 L MCH 21.9 L MCHC 28.6 L RDW 18.1 H Plt Count 407 MPV 9.7 Neut # (Auto) 15.7 H Lymph # (Auto) 0.9 L Fisher # (Auto) 1.1 H Eos # (Auto) 0.2 Baso # (Auto) 0.1 Absolute Nucleated RBC 0.00 Nucleated RBC % 0.0 PT INR Sodium 140 Potassium 3.6 Chloride 99 L Carbon Dioxide 34 H Anion Gap 7.0 BUN 27 H Creatinine 0.7 Estimated GFR (MDRD) 82 L Glucose 157 H Lactic Acid 1.0 Calcium 9.1 Total Bilirubin 0.6 AST 13 ALT 8 L Alkaline Phosphatase 88 Total Protein 7.8 Albumin 3.3 Globulin 4.5 H Albumin/Globulin Ratio 0.7 L Lipase < 10 L Urine Color Urine Clarity Urine pH Ur Specific [place] Urine Protein Urine Glucose (UA) Urine Ketones Urine Occult Blood Urine Nitrite Urine Bilirubin Urine Urobilinogen Ur Leukocyte Esterase Urine RBC Urine WBC Ur Squamous Epith Cells Urine Crystals Amorphous Sediment Urine Bacteria Urine Mucus Ur Microscopic Review Urine Culture Comments Nasal Adenovirus (PCR) Nasal B. parapertussis DNA (PCR) Nasal Coronavir 229E PCR Nasal Coronavir HKU1 PCR Nasal Coronavir NL63 PCR Nasal Coronavir OC43 PCR Nasal Enterovir/Rhinovir PCR Nasal Influenza B PCR Nasal Influenza A PCR Nasal Parainfluen 1 PCR Nasal Parainfluen 2 PCR Nasal Parainfluen 3 PCR Nasal Parainfluen 4 PCR Nasal RSV (PCR) Nasal B.pertussis DNA PCR Nasal C.pneumoniae (PCR) Alexx Human Metapneumo PCR Nasal M.pneumoniae (PCR) Nasal SARS-CoV-2 (PCR) 11/05/23 11/05/23 11/05/23 04:58 04:58 04:58 WBC RBC Hgb Hct MCV MCH MCHC RDW Plt Count MPV Neut # (Auto) Lymph # (Auto) Fisher # (Auto) Eos # (Auto) Baso # (Auto) Absolute Nucleated RBC Nucleated RBC % PT 38.6 H INR 3.8 H Sodium Potassium Chloride Carbon Dioxide Anion Gap BUN Creatinine Estimated GFR (MDRD) Glucose Lactic Acid Calcium Total Bilirubin AST ALT Alkaline Phosphatase Total Protein Albumin Globulin Albumin/Globulin Ratio Lipase Urine Color YELLOW Urine Clarity CLOUDY Urine pH 8.5 H Ur Specific [place] <=1.005 Urine Protein >=300 H Urine Glucose (UA) NEGATIVE Urine Ketones TRACE Urine Occult Blood NEGATIVE Urine Nitrite POSITIVE H Urine Bilirubin SMALL H Urine Urobilinogen 0.2 (NORMAL) Ur Leukocyte Esterase SMALL H Urine RBC None Seen Urine WBC 6-10 H Ur Squamous Epith Cells NONE SEEN Urine Crystals 11-25 Triple Phos Amorphous Sediment Moderate Urine Bacteria Few Urine Mucus Marked Strands Ur Microscopic Review INDICATED Urine Culture Comments INDICATED Nasal Adenovirus (PCR) NOT DETECTED Nasal B. parapertussis DNA (PCR) NOT DETECTED Nasal Coronavir 229E PCR NOT DETECTED Nasal Coronavir HKU1 PCR NOT DETECTED Nasal Coronavir NL63 PCR NOT DETECTED Nasal Coronavir OC43 PCR NOT DETECTED Nasal Enterovir/Rhinovir PCR NOT DETECTED Nasal Influenza B PCR NOT DETECTED Nasal Influenza A PCR NOT DETECTED Nasal Parainfluen 1 PCR NOT DETECTED Nasal Parainfluen 2 PCR NOT DETECTED Nasal Parainfluen 3 PCR NOT DETECTED Nasal Parainfluen 4 PCR NOT DETECTED Nasal RSV (PCR) NOT DETECTED Nasal B.pertussis DNA PCR NOT DETECTED Nasal C.pneumoniae (PCR) NOT DETECTED Alexx Human Metapneumo PCR NOT DETECTED Nasal M.pneumoniae (PCR) NOT DETECTED Nasal SARS-CoV-2 (PCR) NOT DETECTED PD Medical Decision Making - ED course ED course: 72yF presents with severe sepsis 2/2 either uti or another source, with elevated wbc count of 18, tachypnea, tachycardia, and fever from [facility]. plan to admit for IV antibiotics pending workup. Patient endorsed to Dr. Isbell Departure - Departure Clinical Impression: Sepsis, UTI (urinary tract infection) Forms: PCP List
[2023-11-05 05:44] LABS: AMORPHOUS SEDIMENT,UR Moderate /LPF; BACTERIA,URINE Few /HPF (None Seen); CRYSTALS,URINE 11-25 Triple Phos /LPF; MUCUS,URINE Marked Strands; RBC,URINE None Seen /HPF (0-5); SQUAMOUS EPITHELIAL CELL,UR NONE SEEN (<= Few)
[2023-11-05] MEDS: AZITHROMYCIN INJ 500 MG in SODIUM CHLORIDE 0.9% 250 ML IV STA (05:57)
[2023-11-05 06:05] LABS: B. PARAPERTUSSIS- RESP PCR PAN NOT DETECTED; B. PERTUSSIS- RESP PCR PANEL NOT DETECTED; C. PNEUMONIAE- RESP PCR PANEL NOT DETECTED; CORONAVIRUS 229E-RESP PCR NOT DETECTED; CORONAVIRUS HKU1-RESP PCR NOT DETECTED; CORONAVIRUS NL63-RESP PCR NOT DETECTED; CORONAVIRUS OC43-RESP PCR NOT DETECTED; HUMAN METAPNEUMOVIRUS NOT DETECTED; INFLUENZA A- RESP PCR PANEL NOT DETECTED; INFLUENZA B - RESP PCR PANEL NOT DETECTED; M. PNEUMONIAE- RESP PCR PANEL NOT DETECTED; PARAINFLUENZA VIRUS 1 NOT DETECTED; PARAINFLUENZA VIRUS 2 NOT DETECTED; PARAINFLUENZA VIRUS 3 NOT DETECTED; PARAINFLUENZA VIRUS 4 NOT DETECTED; RHINOVIRUS/ENTEROVIRUS NOT DETECTED; RSV- RESP PCR PANEL NOT DETECTED; SARS-CoV-2 -RESP PCR PANEL NOT DETECTED
[2023-11-05] MEDS: SODIUM CHLORIDE 0.9% 1,000 ML IV STA ×2 (07:31→08:33)
--- NOTE | 2023-11-05 08:10 | XRAY Report ---
PROCEDURE: Chest 1V INDICATIONS: sepsis TECHNIQUE: One view of the chest was acquired. COMPARISON: 07/02/2022. FINDINGS: Surgical changes and devices: None. Lungs and pleura: No pleural effusions or pneumothorax. Diffuse bilateral pulmonary infiltrates. Mediastinum: Mediastinal contours appear normal. Large hiatal hernia. Cardiomegaly. Bones and chest wall: No suspicious bony lesions. Overlying soft tissues appear unremarkable. IMPRESSION: Diffuse bilateral pulmonary infiltrates. Consider pneumonia versus pulmonary edema. Large hiatal hernia Reviewed by: Wild Meadows MD on 11/05/2023 8:09 AM PDT Approved by: Wild Meadows MD on 11/05/2023 8:09 AM PDT Station ID: [id number]
[2023-11-05] MEDS ORDERED: ONDANSETRON 4 MG/2 ML VIAL IVP PRN (08:54)
[2023-11-05] MEDS ORDERED: SODIUM CHLORIDE FLUSH 0.9% 10 ML SYRINGE IVP PRN (08:54)
[2023-11-05] MEDS ORDERED: HEPARIN 5,000 UNIT/ML VIAL SUBQ SCH (09:00)
--- NOTE | 2023-11-05 09:16 | HISTORY & PHYSICAL EXAMINATION ---
Chief Complaint - Chief Complaint Chief Complaint: Fever History of Present Illness - Admitted From Admitted From:: [facility] - History Obtained From Exam Limitations: Dementia - History of Present Illness HPI Comment/Other: This is a 72 yo F with history of multiple medical problems including DM2, CAD, peripheral neuropathy, dementia, CVA, hypoxic brain injury, HTN, A fib on coumadin, CHF, chronic pain and Charcot-Gia disease came with fever. Due to her dementia, the history is extremely limited. The pt came from [facility] for fever. At this time the pt is mumbling and not answering any questions. Per ER physician's note "72yF with pmh htn, afib on warfarin, dementia, presents from [facility] with fever and rapid heart rate. patient c/o shoulder pain but denies urinary sx or abdominal pain. she has chronic indwelling claire. sepsis code called on arrival. 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 Patient's father at age 62 from lung cancer and colon cancer. Both the patient and her sister had genetic disease of Cnoskka-[id number] foot. Living arrangement: Assisted living Social History Notes: Patient has no history of smoking, patient has alcohol issue on young age. Patient has a history overdosage accidentally with opiate use - Substance History Dependence Issues: Dementia - POLST Patient has POLST: Yes POLST Status: Full Code Meds/Allgy - Home Medications Home Medications: Ambulatory Orders Medication Instructions Recorded Confirmed Duloxetine HCl [Cymbalta] 60 mg PO DAILY 07/19/20 11/05/23 Pantoprazole [Protonix] 40 mg PO BID 07/19/20 11/05/23 Potassium Chloride 10 meq PO Q48H 07/19/20 11/05/23 Solifenacin Succinate [Vesicare] 5 mg PO DAILY 07/19/20 11/05/23 ARIPiprazole [Abilify] 10 mg PO QPM #20 tab 07/15/23 11/05/23 Atorvastatin Calcium [Lipitor] 80 mg PO QPM #30 tab 07/15/23 11/05/23 Furosemide [Lasix] 20 mg PO DAILY #30 tab 07/15/23 11/05/23 Acetaminophen [Tylenol] 650 mg PO Q6H PRN 11/05/23 11/05/23 Cetirizine HCl [Allergy Relief] 5 mg PO DAILY 11/05/23 11/05/23 Cyclobenzaprine HCl 5 mg PO DAILY 11/05/23 11/05/23 HYDROcod/ACETAM 5/325 [[place] 5/325] 0.5 ea PO TID 11/05/23 11/05/23 Pregabalin [Lyrica] 100 mg PO TID 11/05/23 11/05/23 Warfarin [Coumadin] 1 mg PO MOFR 11/05/23 11/05/23 Warfarin [Coumadin] 2 mg PO SUTUWETHSA 11/05/23 11/05/23 - Allergies Allergies/Adverse Reactions: Allergies Allergy/AdvReac Type Severity Reaction Status Date / Time clindamycin Allergy Unknown Verified 11/05/23 07:42 phenobarbital Allergy Hives Verified 11/05/23 04:59 morphine AdvReac Intermediate Hallucinati Verified 11/05/23 04:59 ons doxycycline AdvReac Nausea Verified 11/05/23 04:59 Review of Systems - Constitutional Constitutional: reports: Fever - Cardiovascular Cariovascular: reports: Irregular heart rate (Unable to assess due to her mental status) Prior Level of Functionality: Unknown at this time Exam - Vital Signs Reviewed Vital Signs: Yes Vital Signs: Vital Signs x48h Temp Pulse Resp BP Pulse Ox O2 Flow Rate 11/05/23 08:31 103 H 18 89/41 L 98 2 11/05/23 08:00 36.8 C 109 H 17 91/45 L 98 2 11/05/23 07:30 103 H 16 90/51 L 99 2 11/05/23 07:00 120 H 20 89/41 L 99 2 11/05/23 06:30 123 H 18 94/44 L 96 2 11/05/23 06:00 137 H 18 97/55 L 99 2 11/05/23 05:42 37 C 11/05/23 05:30 125 H 16 96/56 L 97 2 11/05/23 05:22 149 H 18 88/76 L 98 2 11/05/23 04:52 37.0 C 11/05/23 04:45 36.7 C 150 H 24 104/67 90 L - Physical Exam General Appearance: positive: No acute distress, Lethargic Eyes Bilateral: positive: Normal inspection, EOMI ENT: positive: Dry mucous membranes Neck: positive: Nml inspection, Trachea midline, Other (Mild JVD) Respiratory: positive: Chest non-tender, Other (Crackles at bases) Cardiovascular: positive: Irregularly irregular, Tachycardia Abdomen: positive: Non-tender, Nml bowel sounds, No distention Skin: positive: Color nml, No rash, Warm, Dry Extremities: positive: Non-tender, No pedal edema Neurologic/Psychiatric: positive: Disoriented to person, Disoriented to place, Disoriented to time Sepsis Event Note (H) - Evaluation Current Stage of Sepsis: Septic shock Possible source of Sepsis: positive: Pulmonary, Genitourinary Sepsis Associated Organ Dysfunction: Septic shock - Sepsis Criteria Sepsis Criteria: Recorded Heart Rate greater than 90 bpm, WBC count greater than 12,000 or less than 4000, MAP less than 65 mmHg Conclusion/Plan - Problem List (1) Septic shock Conclusion/Plan: Levophed and central line is placed by ER physician. Treat the underlying infection. Repeat CBC in AM. (2) Atrial fibrillation with rapid ventricular response Conclusion/Plan: From sepsis. Will monitor her HR. It is low 100's at this time. (3) Pneumonia Conclusion/Plan: Azithromycin and ceftriaxone. will check urine legionella and strep antigens. check procalcitonin. Qualifiers: Pneumonia type: due to unspecified organism Laterality: bilateral Lung location: lower lobe of lung Qualified Code(s): J18.9 - Pneumonia, unspecified organism (4) UTI (urinary tract infection) Conclusion/Plan: The pt is on ceftriaxone. will follow urine culture results. She has indwelling catheter so she is at high risk for recurrent UTI Qualifiers: Indwelling urinary catheter type: indwelling urethral catheter Encounter type: initial encounter (5) Heart failure Conclusion/Plan: Unclear if this is systolic or diastolic. I couldn't find any echo results. will get echo during the hospital stay. will be careful with IVF. Qualifiers: Heart failure type: unspecified Heart failure chronicity: unspecified Qualified Code(s): I50.9 - Heart failure, unspecified - Lab Results Fish Bones: 11/05/23 04:58 11/05/23 04:58 - Diagnostic Imaging Results Diagnostic Imaging Results: positive: Final report reviewed Diagnostic Imaging Results Comments: Bilateral pneumonia vs CHF
--- NOTE | 2023-11-05 09:43 | ED Physician Documentation ---
ED Addendum - Addendum Addendum: 11/05/23 09:35 The pt was signed out to me at change of shift, pending admission to the hospital for UTI, pneumonia, and positive SIRS criteria/suspected sepsis. The pt had been febrile at her assisted living facility, and was less alert than usual. She has dementia and is a full code but with "limited interventions" (2020 POL). She has been hypotensive and tachycardic throughout most of her stay in the ED, despite nearly 2 liters of NS. She had already been given antibiotics by the time of my assumption of care. I ordered 3rd and 4th liters of NS, and spoke with Dr. Morton, who accepted the pt for admission to the hospital. He is contacting family to discuss goals of care. I have placed a R subclavian central line (no consent, due to acuity of pt; sterile prep/drape; Seldinger technique; dark, nonpulsatile blood return on first pass of needle, easy passage of guidewire; XR ordered to confirm placement). Norepinephrine drip ordered. Most recent BP prior to Levophed is 95/47. HR 120's. Plan admit to ICU. Final impression: 1. Septic shock 2. Pneumonia 3. UTI Disposition: Admit to CCU in critical condition.
--- NOTE | 2023-11-05 09:56 | XRAY Report ---
PROCEDURE: Chest for Line Placement INDICATIONS: line placement TECHNIQUE: One view of the chest was acquired. COMPARISON: 11/05/2023 at 0644 hours. FINDINGS: Surgical changes and devices: Interval placement of a right central venous catheter with its tip pro jecting to the SVC right atrial junction.. Lungs and pleura: No pleural effusions or pneumothorax. Unchanged diffuse bilateral pulmonary infilt rates. Mediastinum: Mediastinal contours appear normal. Cardiomegaly. Bones and chest wall: No suspicious bony lesions. Overlying soft tissues appear unremarkable. IMPRESSION: 1. Congestive heart failure versus bilateral pneumonia. 2. Central line projects to SVC right atrial junction. Reviewed by: Wild Meadows MD on 11/05/2023 9:55 AM PDT Approved by: Wild Meadows MD on 11/05/2023 9:55 AM PDT Station ID: [id number]
[2023-11-05] MEDS ORDERED: NOREPINEPHRINE/0.9 % NS 8 MG/250 ML BAG IV SCH (10:00)
--- NOTE | 2023-11-05 10:12 | PHARMACY PROGRESS NOTE ---
- Best Possible Medication History Admit Date and Time: 11/05/23 0854 Processed by: Nursing Medications reviewed in ED?: Yes As the person ultimately responsible for medication therapy, providers are able to order a medication from an existing home medication list in [facility] via the "Reconcile Routine" prior to Confirmation of that medication by support technician. Such practice is discouraged except when the physician, in their clinical judgment, deems that a medical need exists for a medication without regard to previous use.
--- NOTE | 2023-11-05 11:01 | MISCELLANEOUS PROVIDER NOTE ---
Miscellaneous Provider Note - - Note: Advance care planning can't be conducted due to her dementia.
[2023-11-05] MEDS: SODIUM CHLORIDE 0.9% 1,000 ML IV SCH (11:07)
[2023-11-05] MEDS: SODIUM CHLORIDE FLUSH 0.9% 10 ML SYRINGE IVP SCH (11:08)
[2023-11-05] MEDS: INSULIN REGULAR, HUMAN 300 UNIT/3 ML PEN SUBQ SCH (12:24)
[2023-11-05] MEDS: POTASSIUM CHLORIDE 10 MEQ CAPSULE PO SCH (17:27)
[2023-11-05] MEDS: FUROSEMIDE 20 MG/2 ML VIAL IVP SCH (17:27)
[2023-11-05] MEDS: METOPROLOL 5 MG/5 ML VIAL IVP PRN (19:21)
[2023-11-05] MEDS: HYDROcod/ACETAM 5/325 MG TABLET PO SCH (21:10)
[2023-11-05] MEDS: ARIPiprazole 5 MG TABLET PO SCH (21:10)
[2023-11-05] MEDS: ATORVASTATIN 40 MG TABLET PO SCH (21:10)
[2023-11-05] MEDS: PREGABALIN 100 MG CAPSULE PO SCH (21:11)
[2023-11-05] MEDS: PANTOPRAZOLE 40 MG TABLET PO SCH (21:11)
[2023-11-05 21:23] LABS: ESTIMATED AVERAGE GLUCOSE 134 mg/dL (70-100); HEMOGLOBIN A1c% 6.3 % (4.27-6.07)
[2023-11-05] MEDS: METOPROLOL 5 MG/5 ML VIAL IVP SCH (23:45)
[2023-11-06] MEDS: ACETAMINOPHEN 325 MG TABLET PO PRN (04:25)
[2023-11-06] MEDS: FUROSEMIDE 20 MG/2 ML VIAL IVP SCH (05:16)
[2023-11-06 05:33] LABS: BASOPHILS % (AUTO) 0.3 %; NEUTROPHILS # (AUTO) 9.2 10^3/uL (1.5-6.6)
[2023-11-06 05:40] LABS: EOSINOPHILS # (AUTO) 0.1 10^3/uL (0.0-0.7); EOSINOPHILS % (AUTO) 0.9 %; HCT - HEMATOCRIT 26.9 % (37.0-47.0); HGB - HEMOGLOBIN 7.6 g/dL (12.0-16.0); LYMPHOCYTES # (AUTO) 1.3 10^3/uL (1.5-3.5); LYMPHOCYTES % (AUTO) 10.7 %; MEAN CORPUSCULAR HGB CONC 28.3 g/dL (32.0-36.0); MEAN PLATELET VOLUME 10.3 fL (7.9-10.8); MONOCYTES # (AUTO) 1.1 10^3/uL (0.0-1.0); MONOCYTES % (AUTO) 9.4 %; NEUTROPHILS % (AUTO) 78.2 %; PLT - PLATELET COUNT 322 10^3/uL (130-450); RED BLOOD COUNT 3.45 10^6/uL (4.20-5.40); WHITE BLOOD COUNT 11.7 x10^3/uL (4.8-10.8)
[2023-11-06 05:57] LABS: CALCIUM, IONIZED 1.1 mmol/L (1.15-1.33); VBG PH 7.356 (7.31-7.41)
[2023-11-06 06:11] LABS: CALCIUM 8.5 mg/dL (8.5-10.3); CREATININE 0.5 mg/dL (0.6-1.3); MAGNESIUM 1.2 mg/dL (1.7-2.3); PHOSPHORUS 2.5 mg/dL (2.5-5.0); POTASSIUM 2.8 mmol/L (3.5-4.5)
[2023-11-06] MEDS: POTASSIUM CHLORIDE 20 MEQ TABLET PO SCH (08:25)
[2023-11-06] MEDS: LACTOBACILLUS RHAMNOSUS GG CAPSULE PO SCH (08:25)
--- NOTE | 2023-11-06 08:25 | PROVIDER PROGRESS NOTE ---
Subjective - Prog Note Date Prog Note Date: 11/06/23 Prog Note Time: 08:23 - Subjective Pt reports feeling: Improved Subjective: The pt reports that she is doing okay but she is sleepy. Due to her dementia, the history is limited. Overnight she received IV metoprolol x2 for A fib with RVR and her HR has been improved. No other acute overnight events. Objective - Vital Signs/Intake & Output Reviewed Vital Signs: Yes Vital Signs: Vital Signs x48h Temp Pulse Resp BP Pulse Ox O2 Flow Rate 11/06/23 08:03 110 H 14 102/51 L 98 2 11/06/23 07:00 97 17 111/49 L 98 2 11/06/23 06:00 103 H 15 109/52 L 94 2 11/06/23 05:00 37.4 C 118 H 16 141/75 H 97 2 11/06/23 04:00 117 H 21 128/69 97 2 11/06/23 03:00 36.7 C 105 H 18 146/78 H 96 2 11/06/23 02:00 98 17 107/56 L 96 2 11/06/23 01:00 111 H 18 121/64 96 2 Intake & Output: Intake & Output 11/03/23 11/04/23 11/05/23 11/06/23 23:59 23:59 23:59 23:59 Intake Total 4710 0 Output Total 1350 700 Balance 3360 -700 - Objective General Appearance: positive: No acute distress, Other (Sleeping but wakes up with stimuli) Eyes Bilateral: positive: Normal inspection, EOMI Neck: positive: Nml inspection, Trachea midline, Other (Mild JVD.) Respiratory: positive: Chest non-tender, No respiratory distress, Breath sounds nml Cardiovascular: positive: Irregularly irregular, Tachycardia, JVD present Abdomen: positive: Non-tender, Nml bowel sounds, No distention Skin: positive: Color nml, No rash, Warm, Dry Extremities: positive: Non-tender, No pedal edema Neurologic/Psychiatric: positive: Other (demented) - Lab Results Fish Bones: 11/06/23 05:00 11/06/23 05:00 Other Labs: Lab Results x24hrs 11/06/23 11/06/23 11/06/23 Range/Units 06:16 05:00 05:00 WBC (4.8-10.8) x10^3/uL RBC (4.20-5.40) 10^6/uL Hgb (12.0-16.0) g/dL Hct (37.0-47.0) % MCV (81.0-99.0) fL MCH (27.0-31.0) pg MCHC (32.0-36.0) g/dL RDW (12.0-15.0) % Plt Count (130-450) 10^3/uL MPV (7.9-10.8) fL Neut # (Auto) (1.5-6.6) 10^3/uL Lymph # (Auto) (1.5-3.5) 10^3/uL [place] # (Auto) (0.0-1.0) 10^3/uL Eos # (Auto) (0.0-0.7) 10^3/uL Baso # (Auto) (0.0-0.1) 10^3/uL Absolute Nucleated RBC x10^3/uL Nucleated RBC % /100WBC VBG pH 7.356 (7.31-7.41) Ionized Calcium 1.10 L (1.15-1.33) mmol/L Sodium (135-145) mmol/L Potassium (3.5-4.5) mmol/L Chloride (101-111) mmol/L Carbon Dioxide (21-32) mmol/L Anion Gap (6-13) BUN (6-20) mg/dL Creatinine (0.6-1.3) mg/dL Estimated GFR (MDRD) (>89) Glucose (74-104) mg/dL POC Whole Bld Glucose 115 H (70 - 100) mg/dL Estimat Average Glucose (70-100) mg/dL Hemoglobin A1c % (4.27-6.07) % Calcium (8.5-10.3) mg/dL Phosphorus 2.5 (2.5-5.0) mg/dL Magnesium 1.2 L (1.7-2.3) mg/dL B-Natriuretic Peptide (5-100) pg/mL Nasal Screen MRSA (PCR) (NEGATIVE) 11/06/23 11/06/23 11/06/23 Range/Units 05:00 05:00 00:12 WBC 11.7 H (4.8-10.8) x10^3/uL RBC 3.45 L (4.20-5.40) 10^6/uL Hgb 7.6 L (12.0-16.0) g/dL Hct 26.9 L (37.0-47.0) % MCV 78.0 L (81.0-99.0) fL MCH 22.0 L (27.0-31.0) pg MCHC 28.3 L (32.0-36.0) g/dL RDW 18.0 H (12.0-15.0) % Plt Count 322 (130-450) 10^3/uL MPV 10.3 (7.9-10.8) fL Neut # (Auto) 9.2 H (1.5-6.6) 10^3/uL Lymph # (Auto) 1.3 L (1.5-3.5) 10^3/uL [place] # (Auto) 1.1 H (0.0-1.0) 10^3/uL Eos # (Auto) 0.1 (0.0-0.7) 10^3/uL Baso # (Auto) 0.0 (0.0-0.1) 10^3/uL Absolute Nucleated RBC 0.00 x10^3/uL Nucleated RBC % 0.0 /100WBC VBG pH (7.31-7.41) Ionized Calcium (1.15-1.33) mmol/L Sodium 141 (135-145) mmol/L Potassium 2.8 L (3.5-4.5) mmol/L Chloride 104 (101-111) mmol/L Carbon Dioxide 32 (21-32) mmol/L Anion Gap 5.0 L (6-13) BUN 17 (6-20) mg/dL Creatinine 0.5 L (0.6-1.3) mg/dL Estimated GFR (MDRD) 121 (>89) Glucose 122 H (74-104) mg/dL POC Whole Bld Glucose 113 H (70 - 100) mg/dL Estimat Average Glucose (70-100) mg/dL Hemoglobin A1c % (4.27-6.07) % Calcium 8.5 (8.5-10.3) mg/dL Phosphorus (2.5-5.0) mg/dL Magnesium (1.7-2.3) mg/dL B-Natriuretic Peptide (5-100) pg/mL Nasal Screen MRSA (PCR) (NEGATIVE) 11/05/23 11/05/23 11/05/23 Range/Units 17:35 16:57 11:49 WBC (4.8-10.8) x10^3/uL RBC (4.20-5.40) 10^6/uL Hgb (12.0-16.0) g/dL Hct (37.0-47.0) % MCV (81.0-99.0) fL MCH (27.0-31.0) pg MCHC (32.0-36.0) g/dL RDW (12.0-15.0) % Plt Count (130-450) 10^3/uL MPV (7.9-10.8) fL Neut # (Auto) (1.5-6.6) 10^3/uL Lymph # (Auto) (1.5-3.5) 10^3/uL [place] # (Auto) (0.0-1.0) 10^3/uL Eos # (Auto) (0.0-0.7) 10^3/uL Baso # (Auto) (0.0-0.1) 10^3/uL Absolute Nucleated RBC x10^3/uL Nucleated RBC % /100WBC VBG pH (7.31-7.41) Ionized Calcium (1.15-1.33) mmol/L Sodium (135-145) mmol/L Potassium (3.5-4.5) mmol/L Chloride (101-111) mmol/L Carbon Dioxide (21-32) mmol/L Anion Gap (6-13) BUN (6-20) mg/dL Creatinine (0.6-1.3) mg/dL Estimated GFR (MDRD) (>89) Glucose (74-104) mg/dL POC Whole Bld Glucose 102 H 96 (70 - 100) mg/dL Estimat Average Glucose (70-100) mg/dL Hemoglobin A1c % (4.27-6.07) % Calcium (8.5-10.3) mg/dL Phosphorus (2.5-5.0) mg/dL Magnesium (1.7-2.3) mg/dL B-Natriuretic Peptide 834 H (5-100) pg/mL Nasal Screen MRSA (PCR) (NEGATIVE) 11/05/23 11/05/23 Range/Units 10:30 04:58 WBC (4.8-10.8) x10^3/uL RBC (4.20-5.40) 10^6/uL Hgb (12.0-16.0) g/dL Hct (37.0-47.0) % MCV (81.0-99.0) fL MCH (27.0-31.0) pg MCHC (32.0-36.0) g/dL RDW (12.0-15.0) % Plt Count (130-450) 10^3/uL MPV (7.9-10.8) fL Neut # (Auto) (1.5-6.6) 10^3/uL Lymph # (Auto) (1.5-3.5) 10^3/uL [place] # (Auto) (0.0-1.0) 10^3/uL Eos # (Auto) (0.0-0.7) 10^3/uL Baso # (Auto) (0.0-0.1) 10^3/uL Absolute Nucleated RBC x10^3/uL Nucleated RBC % /100WBC VBG pH (7.31-7.41) Ionized Calcium (1.15-1.33) mmol/L Sodium (135-145) mmol/L Potassium (3.5-4.5) mmol/L Chloride (101-111) mmol/L Carbon Dioxide (21-32) mmol/L Anion Gap (6-13) BUN (6-20) mg/dL Creatinine (0.6-1.3) mg/dL Estimated GFR (MDRD) (>89) Glucose (74-104) mg/dL POC Whole Bld Glucose (70 - 100) mg/dL Estimat Average Glucose 134 H (70-100) mg/dL Hemoglobin A1c % 6.3 H (4.27-6.07) % Calcium (8.5-10.3) mg/dL Phosphorus (2.5-5.0) mg/dL Magnesium (1.7-2.3) mg/dL B-Natriuretic Peptide (5-100) pg/mL Nasal Screen MRSA (PCR) NEGATIVE (NEGATIVE) - Diagnostic Imaging Diagnostic Imaging Results: positive: Final report reviewed ABX Reporting Has patient been on IV antibiotics over the past 48 hours?: Yes Sepsis Event Note (H) - Evaluation Current Stage of Sepsis: Septic shock Possible source of Sepsis: positive: Pulmonary, Genitourinary - Sepsis Criteria Sepsis Criteria: Recorded Heart Rate greater than 90 bpm, WBC count greater than 12,000 or less than 4000, MAP less than 65 mmHg Assessment/Plan - Problem List (1) Septic shock Impression: Improved with IVF and didn't require pressor. Continue to treat the infection. (2) Atrial fibrillation with rapid ventricular response Impression: HR is better but still goes up to 120's to 130's. Start toprol XL 50mg daily this morning and keep prn IV metoprolol. Check BMP and Mg in am. (3) Pneumonia Impression: Stable on O2 support. Continue with abx. Qualifiers: Pneumonia type: due to unspecified organism Laterality: bilateral Lung location: lower lobe of lung Qualified Code(s): J18.9 - Pneumonia, unspecified organism (4) UTI (urinary tract infection) Impression: Continue with ceftriaxone. She is at high risk for recurrent infection due ot indwelling claire catheter. Blood culture is NGTD. Qualifiers: Indwelling urinary catheter type: indwelling urethral catheter Encounter type: initial encounter (5) Heart failure Impression: I think she does have CHF/pulmonary edema component on her presentation. Since her BP is stable, lasix 20mg IV BID has been given. Echo is ordered. Will continue with lasix IV BID and then change to PO at home dose. Qualifiers: Heart failure type: unspecified Heart failure chronicity: unspecified Qualified Code(s): I50.9 - Heart failure, unspecified
[2023-11-06] MEDS: SOLIFENACIN SUCCINATE 5 MG TABLET PO SCH (08:26)
[2023-11-06] MEDS: METOPROLOL SUCCINATE 50 MG TABLET PO SCH (08:26)
[2023-11-06] MEDS: AZITHROMYCIN INJ 500 MG in SODIUM CHLORIDE 0.9% 250 ML IV SCH (08:34)
[2023-11-06] MEDS: MAGNESIUM SULFATE 2 GRAM 2 GM/50 ML BAG IV SCH (08:35)
[2023-11-06] MEDS: CYCLOBENZAPRINE 10 MG TABLET PO SCH (08:47)
[2023-11-06] MEDS: DULoxetine 60 MG CAPSULE PO SCH (08:47)
[2023-11-06] MEDS: CETIRIZINE 10 MG TABLET PO SCH (08:47)
[2023-11-06] MEDS: cefTRIAXone 2 GM in SODIUM CHLORIDE 0.9% MINIBAG 100 ML IV SCH (08:50)
[2023-11-06] MEDS ORDERED: cefTRIAXone 2 GM VIAL IVP SCH (09:00)
[2023-11-06] MEDS: CALCIUM GLUC 1,000MG/50ML-NACL 1,000 MG/50 ML BAG IV ONE (09:30)
[2023-11-06] MEDS: POTASSIUM CHLORIDE 20 MEQ TABLET PO ONE (14:41)
[2023-11-06] MEDS: INSULIN LISPRO 300 UNIT/3 ML PEN SUBQ SCH (18:15)
[2023-11-07 05:19] LABS: BASOPHILS % (AUTO) 0.5 %; EOSINOPHILS # (AUTO) 0.2 10^3/uL (0.0-0.7); EOSINOPHILS % (AUTO) 2.5 %; HCT - HEMATOCRIT 27.5 % (37.0-47.0); HGB - HEMOGLOBIN 7.4 g/dL (12.0-16.0); LYMPHOCYTES # (AUTO) 1.5 10^3/uL (1.5-3.5); LYMPHOCYTES % (AUTO) 16.7 %; MEAN CORPUSCULAR HEMOGLOBIN 21.6 pg (27.0-31.0); MEAN CORPUSCULAR HGB CONC 26.9 g/dL (32.0-36.0); MEAN CORPUSCULAR VOLUME 80.2 fL (81.0-99.0); MEAN PLATELET VOLUME 10.4 fL (7.9-10.8); MONOCYTES # (AUTO) 0.9 10^3/uL (0.0-1.0); NEUTROPHILS # (AUTO) 6.1 10^3/uL (1.5-6.6); NEUTROPHILS % (AUTO) 69.8 %; PLT - PLATELET COUNT 308 10^3/uL (130-450); RED BLOOD COUNT 3.43 10^6/uL (4.20-5.40); RED CELL DISTRIBUTION WIDTH 18.2 % (12.0-15.0); WHITE BLOOD COUNT 8.7 x10^3/uL (4.8-10.8)
[2023-11-07 05:41] LABS: CALCIUM 8.7 mg/dL (8.5-10.3); CREATININE 0.6 mg/dL (0.6-1.3); MAGNESIUM 1.8 mg/dL (1.7-2.3); POTASSIUM 3.9 mmol/L (3.5-4.5)
--- NOTE | 2023-11-07 09:27 | PROVIDER PROGRESS NOTE ---
Subjective - Prog Note Date Prog Note Date: 11/07/23 Prog Note Time: 09:24 - Subjective Pt reports feeling: Improved Subjective: The pt reports that she is feeling okay. Due to her dementia, history is unreliable. No acute overnight events. Her HR is controlled better with metoprolol but it is still high side. No other related symptoms. No other modifying factors. Objective - Vital Signs/Intake & Output Reviewed Vital Signs: Yes Vital Signs: Vital Signs x48h Temp Pulse Pulse Resp BP Pulse Ox O2 Flow Rate 11/07/23 09:14 36.5 C 99 16 107/56 L 93 2 11/07/23 07:38 36.4 C L 92 16 117/69 95 2 11/07/23 05:29 36.4 C L 96 20 110/57 L 98 2 Intake & Output: Intake & Output 11/04/23 11/05/23 11/06/23 11/07/23 23:59 23:59 23:59 23:59 Intake Total 4710 1893.333 120 Output Total 1350 2200 250 Balance 3360 -306.667 -130 - Objective General Appearance: positive: No acute distress Eyes Bilateral: positive: Normal inspection, EOMI Neck: positive: Nml inspection, No JVD, Trachea midline Respiratory: positive: Chest non-tender, No respiratory distress, Breath sounds nml Cardiovascular: positive: Irregularly irregular, Tachycardia Abdomen: positive: Non-tender, Nml bowel sounds, No distention Skin: positive: Color nml, No rash, Warm, Dry Extremities: positive: Non-tender, Pedal edema Neurologic/Psychiatric: positive: Other (Demented) - Lab Results Fish Bones: 11/07/23 05:00 11/07/23 05:00 Other Labs: Lab Results x24hrs 11/07/23 11/07/23 11/07/23 Range/Units 08:00 05:00 05:00 WBC 8.7 (4.8-10.8) x10^3/uL RBC 3.43 L (4.20-5.40) 10^6/uL Hgb 7.4 L (12.0-16.0) g/dL Hct 27.5 L (37.0-47.0) % MCV 80.2 L (81.0-99.0) fL MCH 21.6 L (27.0-31.0) pg MCHC 26.9 L (32.0-36.0) g/dL RDW 18.2 H (12.0-15.0) % Plt Count 308 (130-450) 10^3/uL MPV 10.4 (7.9-10.8) fL Neut # (Auto) 6.1 (1.5-6.6) 10^3/uL Lymph # (Auto) 1.5 (1.5-3.5) 10^3/uL [place] # (Auto) 0.9 (0.0-1.0) 10^3/uL Eos # (Auto) 0.2 (0.0-0.7) 10^3/uL Baso # (Auto) 0.0 (0.0-0.1) 10^3/uL Absolute Nucleated RBC 0.00 x10^3/uL Nucleated RBC % 0.0 /100WBC Sodium 143 (135-145) mmol/L Potassium 3.9 (3.5-4.5) mmol/L Chloride 104 (101-111) mmol/L Carbon Dioxide 35 H (21-32) mmol/L Anion Gap 4.0 L (6-13) BUN 16 (6-20) mg/dL Creatinine 0.6 (0.6-1.3) mg/dL Estimated GFR (MDRD) 98 (>89) Glucose 109 H (74-104) mg/dL POC Whole Bld Glucose 144 H (70 - 100) mg/dL Calcium 8.7 (8.5-10.3) mg/dL Magnesium 1.8 (1.7-2.3) mg/dL Stl C. diff Tox B Gene (NEGATIVE) 11/06/23 11/06/23 11/06/23 Range/Units 20:53 18:03 12:13 WBC (4.8-10.8) x10^3/uL RBC (4.20-5.40) 10^6/uL Hgb (12.0-16.0) g/dL Hct (37.0-47.0) % MCV (81.0-99.0) fL MCH (27.0-31.0) pg MCHC (32.0-36.0) g/dL RDW (12.0-15.0) % Plt Count (130-450) 10^3/uL MPV (7.9-10.8) fL Neut # (Auto) (1.5-6.6) 10^3/uL Lymph # (Auto) (1.5-3.5) 10^3/uL [place] # (Auto) (0.0-1.0) 10^3/uL Eos # (Auto) (0.0-0.7) 10^3/uL Baso # (Auto) (0.0-0.1) 10^3/uL Absolute Nucleated RBC x10^3/uL Nucleated RBC % /100WBC Sodium (135-145) mmol/L Potassium (3.5-4.5) mmol/L Chloride (101-111) mmol/L Carbon Dioxide (21-32) mmol/L Anion Gap (6-13) BUN (6-20) mg/dL Creatinine (0.6-1.3) mg/dL Estimated GFR (MDRD) (>89) Glucose (74-104) mg/dL POC Whole Bld Glucose 119 H 100 (70 - 100) mg/dL Calcium (8.5-10.3) mg/dL Magnesium (1.7-2.3) mg/dL Stl C. diff Tox B Gene NEGATIVE (NEGATIVE) - Diagnostic Imaging Diagnostic Imaging Results: positive: Final report reviewed ABX Reporting Has patient been on IV antibiotics over the past 48 hours?: Yes Sepsis Event Note (H) - Evaluation Current Stage of Sepsis: Septic shock Possible source of Sepsis: positive: Pulmonary, Genitourinary - Sepsis Criteria Sepsis Criteria: Recorded Heart Rate greater than 90 bpm, WBC count greater than 12,000 or less than 4000, MAP less than 65 mmHg Assessment/Plan - Problem List (1) Septic shock Impression: Resolved with IVF. (2) Atrial fibrillation with rapid ventricular response Impression: HR is better controlled with metoprolol. Will increase Toprol XL 50mg to BID. (3) Pneumonia Impression: Stable. Complete azithromcyin. Qualifiers: Pneumonia type: due to unspecified organism Laterality: bilateral Lung location: lower lobe of lung Qualified Code(s): J18.9 - Pneumonia, unspecified organism (4) UTI (urinary tract infection) Impression: Urine culture grew Proteus Mirabilis. It is sensitive to most of the abx except for nitrofurantoin and bactrim. Continue with ceftriaxone. Qualifiers: Indwelling urinary catheter type: indwelling urethral catheter Encounter type: initial encounter (5) Heart failure Impression: DC IV lasix and put her back on her home lasix. Qualifiers: Heart failure type: unspecified Heart failure chronicity: unspecified Qualified Code(s): I50.9 - Heart failure, unspecified (6) Generalized weakness Impression: PT/OT eval has been ordered. PT/OT will be back tomorrow.
[2023-11-07] MEDS: METOPROLOL SUCCINATE 50 MG TABLET PO SCH (09:38)
[2023-11-07 11:19] LABS: INR 2.5 (0.8-1.2); PT - PROTHROMBIN TIME 25.5 secs (9.9-12.6)
[2023-11-07 11:29] LABS: ABSOLUTE RETICS # AUTO 0.055 10^6/uL (0.020-0.110); RED BLOOD COUNT 3.46 10^6/uL (4.20-5.40); RETICULOCYTE COUNT % (AUTO) 1.59 % (0.5-2.3)
[2023-11-07 11:38] LABS: % IRON SATURATION 4 % (20-50); IRON 11 ug/dL (50-212); TOTAL IRON BINDING CAPACITY 284 ug/dL (250-450); TRANSFERRIN 203 mg/dL (203-362)
[2023-11-07] MEDS: WARFARIN 1 MG TABLET PO SCH (20:30)
[2023-11-08 05:22] LABS: CALCIUM 8.8 mg/dL (8.5-10.3); CREATININE 0.6 mg/dL (0.6-1.3); POTASSIUM 3.7 mmol/L (3.5-4.5)
[2023-11-08 05:27] LABS: INR 2.1 (0.8-1.2); PT - PROTHROMBIN TIME 22.2 secs (9.9-12.6)
[2023-11-08 05:29] LABS: HCT - HEMATOCRIT 27.4 % (37.0-47.0); HGB - HEMOGLOBIN 7.4 g/dL (12.0-16.0); MEAN CORPUSCULAR HEMOGLOBIN 21.5 pg (27.0-31.0); MEAN CORPUSCULAR VOLUME 79.7 fL (81.0-99.0); MEAN PLATELET VOLUME 10.7 fL (7.9-10.8); RED BLOOD COUNT 3.44 10^6/uL (4.20-5.40); RED CELL DISTRIBUTION WIDTH 17.9 % (12.0-15.0); WHITE BLOOD COUNT 8.4 x10^3/uL (4.8-10.8)
[2023-11-08] MEDS ORDERED: SODIUM CHLORIDE 0.9% MINIBAG 100 ML IV ONE ×2 (08:40→09:10)
[2023-11-08] MEDS: FUROSEMIDE 20 MG TABLET PO SCH (08:49)
--- NOTE | 2023-11-08 11:06 | PROVIDER PROGRESS NOTE ---
Subjective - Prog Note Date Prog Note Date: 11/08/23 Prog Note Time: 11:03 - Subjective Pt reports feeling: Improved Subjective: she is on 2 l of NC to maintain 02 sats and she is not on home 02 usually. weak. needs SBA to get out of bed and to bathroom. The diuresis is working and her I/O has been negative since 11/05. she smiles and knows she is in the hospital and she is here because she has been hearing voices and seeing things and that's why she's here. Today she is not hearing the voices or hearing things. Tired. no appetite. but denies cp, sob. abd pain. Current Medications - Current Medications Current Medications: Active Medications Acetaminophen (Acetaminophen 325 Mg Tablet) 650 mg PO Q4HR PRN PRN Reason: Pain 1 to 4, or Fever Last Admin: 11/07/23 09:37 Dose: 650 mg Hydrocodone Bitart/Acetaminophen (Hydrocod/Acetam 5/325 Mg Tablet) 0.5 tab PO TID [facility] Last Admin: 11/08/23 06:48 Dose: 0.5 tab Aripiprazole (Aripiprazole 5 Mg Tablet) 10 mg PO QPM [facility] Last Admin: 11/07/23 21:30 Dose: 10 mg Atorvastatin Calcium (Atorvastatin 40 Mg Tablet) 80 mg PO QPM [place] Last Admin: 11/07/23 21:30 Dose: 80 mg Cetirizine HCl (Cetirizine 10 Mg Tablet) 5 mg PO DAILY [facility] Last Admin: 11/08/23 08:48 Dose: 5 mg Cyclobenzaprine HCl (Cyclobenzaprine 10 Mg Tablet) 5 mg PO DAILY [place] Last Admin: 11/08/23 08:49 Dose: 5 mg Duloxetine HCl (Duloxetine 60 Mg Capsule) 60 mg PO DAILY [facility] Last Admin: 11/08/23 08:48 Dose: 60 mg Furosemide (Furosemide 20 Mg Tablet) 20 mg PO DAILY [facility] Last Admin: 11/08/23 08:49 Dose: 20 mg Ceftriaxone Sodium 2 gm/ (Sodium Chloride) 100 mls @ 200 mls/hr IV DAILY [facility] Last Admin: 11/08/23 10:21 Dose: 200 mls/hr Insulin Human Lispro (Insulin Lispro 300 Unit/3 Ml Pen) 1 - 5 unit SUBQ 0800,1200,1700,2100 [facility]; Protocol Last Admin: 11/08/23 07:55 Dose: Not Given Lactobacillus Rhamnosus (Lactobacillus Rhamnosus Gg Capsule) 1 cap PO DAILY [facility] Last Admin: 11/08/23 08:49 Dose: 1 cap Metoprolol Succinate (Metoprolol Succinate 50 Mg Tablet) 50 mg PO BID [facility] Last Admin: 11/08/23 08:50 Dose: 50 mg Metoprolol Tartrate (Metoprolol 5 Mg/5 Ml Vial) 5 mg IVP Q6H PRN PRN Reason: Tachycardia Last Admin: 11/05/23 19:21 Dose: 5 mg Ondansetron HCl (Ondansetron 4 Mg/2 Ml Vial) 4 mg IVP Q6HR PRN PRN Reason: Nausea / Vomiting Pantoprazole Sodium (Pantoprazole 40 Mg Tablet) 40 mg PO BID [facility] Last Admin: 11/08/23 08:50 Dose: 40 mg Potassium Chloride (Potassium Chloride 20 Meq Tablet) 20 meq PO DAILYWM [facility] Last Admin: 11/08/23 08:50 Dose: 20 meq Pregabalin (Pregabalin 100 Mg Capsule) 100 mg PO TID [facility] Last Admin: 11/08/23 06:48 Dose: 100 mg Sodium Chloride (Sodium Chloride Flush 0.9% 10 Ml Syringe) 10 ml IVP 0100,0900,1700 [facility] Last Admin: 11/08/23 08:52 Dose: 10 ml Sodium Chloride (Sodium Chloride Flush 0.9% 10 Ml Syringe) 10 ml IVP PRN PRN PRN Reason: NEEDED PER PROVIDER ORDERS Solifenacin (Solifenacin Succinate 5 Mg Tablet) 5 mg PO DAILY [facility] Last Admin: 11/08/23 08:49 Dose: 5 mg Warfarin Sodium (Warfarin 1 Mg Tablet) 1 mg PO [id number] [facility] Warfarin Sodium (Warfarin 1 Mg Tablet) 2 mg PO [id number]@1800 [facility] Last Admin: 11/07/23 20:30 Dose: 2 mg Duloxetine HCl [Cymbalta] 60 mg PO DAILY 07/19/20 Pantoprazole [Protonix] 40 mg PO BID 07/19/20 Potassium Chloride 10 meq PO Q48H 07/19/20 Solifenacin Succinate [Vesicare] 5 mg PO DAILY 07/19/20 Acetaminophen [Tylenol] 650 mg PO Q6H PRN 11/05/23 Cetirizine HCl [Allergy Relief] 5 mg PO DAILY 11/05/23 Cyclobenzaprine HCl 5 mg PO DAILY 11/05/23 HYDROcod/ACETAM 5/325 [[place] 5/325] 0.5 ea PO TID 11/05/23 Pregabalin [Lyrica] 100 mg PO TID 11/05/23 Warfarin [Coumadin] 1 mg PO MOFR 11/05/23 Warfarin [Coumadin] 2 mg PO SUTUWETHSA 11/05/23 Objective - Vital Signs/Intake & Output Reviewed Vital Signs: Yes Vital Signs: Vital Signs x48h Temp Pulse Resp BP Pulse Ox O2 Flow Rate 11/08/23 08:02 36.4 C L 81 18 115/64 95 2 11/08/23 07:00 2 11/08/23 06:26 36.6 C 94 16 136/74 H 93 2 Intake & Output: Intake & Output 11/05/23 11/06/23 11/07/23 11/08/23 23:59 23:59 23:59 23:59 Intake Total 4710 1593.328 3276 600 Output Total 1350 2200 1450 450 Balance 3360 -306.667 -180 150 - Objective General Appearance: positive: No acute distress, Alert (elderly, pale, fatigued female in bed), Other (answering questions, vague answers, smiling. feedin self) Eyes Bilateral: positive: PERRL, EOMI ENT: positive: No signs of dehydration Neck: positive: Thyroid nml Respiratory: positive: No respiratory distress, Other (diminished sounds at bases). negative: Wheezes, Rales, Rhonchi Cardiovascular: positive: Regular rate & rhythm Abdomen: positive: Non-tender, No organomegaly, Nml bowel sounds, No distention, Other (last BM 11/06. Has claire in place) Skin: positive: Warm, Dry Extremities: positive: Full ROM, Pedal edema (minimal, just trace around ankles) Neurologic/Psychiatric: positive: CN's nml (2-12), Motor nml (but weak, able to use hands for motion and feeding), Disoriented to time - Lab Results Fish Bones: 11/08/23 04:45 11/08/23 04:45 Other Labs: Lab Results x24hrs 07/22/24 07/22/24 07/22/24 Range/Units 04:45 04:45 04:45 WBC 8.4 (4.8-10.8) x10^3/uL RBC 3.44 L (4.20-5.40) 10^6/uL Hgb 7.4 L (12.0-16.0) g/dL Hct 27.4 L (37.0-47.0) % MCV 79.7 L (81.0-99.0) fL MCH 21.5 L (27.0-31.0) pg MCHC 27.0 L (32.0-36.0) g/dL RDW 17.9 H (12.0-15.0) % Plt Count 333 (130-450) 10^3/uL MPV 10.7 (7.9-10.8) fL Reticulocyte % (Auto) (0.5-2.3) % Absolute Retic (0.020-0.110) 10^6/uL PT 22.2 H (9.9-12.6) secs INR 2.1 H (0.8-1.2) Sodium 142 (135-145) mmol/L Potassium 3.7 (3.5-4.5) mmol/L Chloride 103 (101-111) mmol/L Carbon Dioxide 36 H (21-32) mmol/L Anion Gap 3.0 L (6-13) BUN 18 (6-20) mg/dL Creatinine 0.6 (0.6-1.3) mg/dL Estimated GFR (MDRD) 98 (>89) Glucose 114 H (74-104) mg/dL POC Whole Bld Glucose (70 - 100) mg/dL Calcium 8.8 (8.5-10.3) mg/dL Iron (50-212) ug/dL TIBC (250-450) ug/dL % Saturation (20-50) % Transferrin (203-362) mg/dL 11/07/23 11/07/23 11/07/23 Range/Units 20:32 16:32 11:42 WBC (4.8-10.8) x10^3/uL RBC (4.20-5.40) 10^6/uL Hgb (12.0-16.0) g/dL Hct (37.0-47.0) % MCV (81.0-99.0) fL MCH (27.0-31.0) pg MCHC (32.0-36.0) g/dL RDW (12.0-15.0) % Plt Count (130-450) 10^3/uL MPV (7.9-10.8) fL Reticulocyte % (Auto) (0.5-2.3) % Absolute Retic (0.020-0.110) 10^6/uL PT (9.9-12.6) secs INR (0.8-1.2) Sodium (135-145) mmol/L Potassium (3.5-4.5) mmol/L Chloride (101-111) mmol/L Carbon Dioxide (21-32) mmol/L Anion Gap (6-13) BUN (6-20) mg/dL Creatinine (0.6-1.3) mg/dL Estimated GFR (MDRD) (>89) Glucose (74-104) mg/dL POC Whole Bld Glucose 115 H 105 H 104 H (70 - 100) mg/dL Calcium (8.5-10.3) mg/dL Iron (50-212) ug/dL TIBC (250-450) ug/dL % Saturation (20-50) % Transferrin (203-362) mg/dL 11/07/23 11/07/23 11/07/23 Range/Units 11:06 05:00 05:00 WBC (4.8-10.8) x10^3/uL RBC 3.46 L (4.20-5.40) 10^6/uL Hgb (12.0-16.0) g/dL Hct (37.0-47.0) % MCV (81.0-99.0) fL MCH (27.0-31.0) pg MCHC (32.0-36.0) g/dL RDW (12.0-15.0) % Plt Count (130-450) 10^3/uL MPV (7.9-10.8) fL Reticulocyte % (Auto) 1.59 (0.5-2.3) % Absolute Retic 0.055 (0.020-0.110) 10^6/uL PT 25.5 H (9.9-12.6) secs INR 2.5 H (0.8-1.2) Sodium (135-145) mmol/L Potassium (3.5-4.5) mmol/L Chloride (101-111) mmol/L Carbon Dioxide (21-32) mmol/L Anion Gap (6-13) BUN (6-20) mg/dL Creatinine (0.6-1.3) mg/dL Estimated GFR (MDRD) (>89) Glucose (74-104) mg/dL POC Whole Bld Glucose (70 - 100) mg/dL Calcium (8.5-10.3) mg/dL Iron 11 L (50-212) ug/dL TIBC 284 (250-450) ug/dL % Saturation 4 L (20-50) % Transferrin 203 (203-362) mg/dL ABX Reporting Has patient been on IV antibiotics over the past 48 hours?: Yes Sepsis Event Note (H) - Evaluation Current Stage of Sepsis: Resolved Possible source of Sepsis: positive: Pulmonary, Genitourinary Confirmed Source and Organism (if known) of Sepsis: proteus and E coli - Sepsis Criteria Sepsis Criteria: Recorded Heart Rate greater than 90 bpm, WBC count greater than 12,000 or less than 4000, MAP less than 65 mmHg Assessment/Plan - Problem List (1) UTI (urinary tract infection) Impression: presented as Septic shock, now resolved. Impression: Resolved with IVF. She went into CHF with the fluid resuscitation and now on lasix. I/O negative. sources of infection were pneumonia and urine. Culture of urine has grown out proteus and E coli. Not sensitve to quinolones, bactrim or macrobid. 11/05/23 04:58 Urine,Catheterized Urine Culture - Final Proteus Mirabilis Escherichia Coli Plan: DC IV abx and change to po keflex. Will need 14 days of abx. (2) Atrial fibrillation with rapid ventricular response Impression: HR is better controlled with metoprolol. On Toprol XL 50mg to BID. This will be a new medicine for her when she is dc'd. She has hx of afib and is on coumadin 1 mg Wednesday and Wednesday. 2 mg on other days. That was resumed yesterday. Laboratory Tests 11/05/23 11/07/23 11/08/23 04:58 11:06 04:45 INR 3.8 H 2.5 H 2.1 H Plan: no change in dosing but will need close daily followup because of interaction between coumadin and antibiotics. (3) Pneumonia Impression: Stable. Completed azithromcyin today and I have stopped the order after today's dose. Qualifiers: Pneumonia type: due to unspecified organism Laterality: bilateral Lung location: lower lobe of lung Qualified Code(s): J18.9 - Pneumonia, unspecified organism (4) Heart failure resolved. Impression: Off of IV lasix and she is on her back on her home lasix as of today. Qualifiers: Heart failure type: unspecified Heart failure chronicity: unspecified Qualified Code(s): I50.9 - Heart failure, unspecified (5) Generalized weakness Impression: PT/OT eval has been ordered. PT/OT eval today. This will let me know if she needs SNf for rehab to to return to LTC. Medically stable today. (6) Iron deficiency anemia. Cause could be nutritional. No hx of GI bleed or small bowel resection. Plan: IV iron today and then po tomorrow for regular dosing. (7) Hyperglycemia. She doesn't have DM and med list from home w/o meds of glucose. here her glucose was 144 yesterday and she is on SS insulin. Only one dose of insulin yesterday. If she doesn't have any dosing but tomorrow I will stop POC and SS insuline.
--- NOTE | 2023-11-08 12:25 | Discharge Plan ---
"Discharge Plan for SNF / [facility] - Discharge Plan And Transition Orders Problem Reviewed?: Yes Disposition: 03 SNF DC/Xfer Condition: Critical Allergies and Adverse Reactions: Allergies Allergy/AdvReac Type Severity Reaction Status Date / Time clindamycin Allergy Unknown Verified 11/05/23 07:42 phenobarbital Allergy Hives Verified 11/05/23 04:59 morphine AdvReac Intermediate Hallucinati Verified 11/05/23 04:59 ons doxycycline AdvReac Nausea Verified 11/05/23 04:59 Health Concerns: Patient is a resident of an assisted living facility and presented to our ER being less alert than usual. She has dementia and is a full code with limited interventions. She presented as septic shock with hypotension and tachycardia requiring fluid resuscitation. Source of infection ended up being Klebsiella and Proteus UTI for chronic indwelling Marquez catheter, as well as pneumonia. She has chronic atrial fibrillation on Coumadin and also had A-fib with RVR. The patient responded to empiric antibiotics, and fluid resuscitation. However the fluid resuscitation resulted in acute congestive heart failure requiring diuresis. She has responded to antibiotics and she is with normal blood pressure now, normal white cell count. Urine culture grew out Proteus and E. coli. She was switched to oral medication on the day of discharge after reviewing her sensitivities to these antibiotics. She will need approximately 7 more days of oral antibiotic therapy. She has baseline cognitive deficits. Her baseline status is significantly weakened now. She would be a candidate for exercises for improving mobility and strength. Plan of Treatment: return to intermediate facility with rehab ordered. Complete antibiotics on November 14 Care Goals: to complete therapy for acute infection. And to remain in intermediate facility with permanent placement Assessment: patient is alert and oriented to the fact that she is in the hospital. But she thinks she is here because she hallucinated small children and heard voices. She is no longer hallucinating - SNF / [facility] Transition Orders Admit to (Facility): [facility] Discharge Diagnosis: 1. Septic shock 2. Proteus and E. coli UTI 3. Pneumonia 4. Atrial fibrillation with rapid ventricular response 5. Acute congestive heart failure, with fluid overload resolved 6. Generalized weakness 7. Iron deficiency anemia 8. Hyperglycemia 9. Dementia 10. Acute respiratory failure with hypoxia Medicare Certification Statement: I certify that [facility] intermediate care is medically necessary on a continuing basis for any of the conditions for which she/he is receiving care during hospitalization. Notify PCP of admission and forward orders to primary provider for signature. Weight on admission and: Weekly Call PCP immediately if weight increases by: 2 kg Other Notification Orders: Call PCP immediately if patient develops dyspnea, chest pain/tightness or edema. House Bowel Program: Yes Additional Bowel Program Orders: If no BM after 2 days, nurse may give M.O.M. 30ml PO PRN and/or ducolax Supp 1 IN and/or CARMELO 250mg P.O., and/or senna 1-2 tabs PO. On day 3 nurse may give repeat above order until residents constipation is resolved. Annual Influenza Vaccine (between Dec 18 and July 17): No Two-step PPD per [facility] [phone] or approved exception documents: No Oxygen Orders: Keep oxygen saturations greater than 92% with 2 L nasal cannula. Consider stopping oxygen when O2 sats are normal on room air Medication Orders: PLEASE REFER TO THE DISCHARGE MEDICATION LIST. Insulin Orders?: No - Medications New Prescriptions: Cefdinir 300 mg PO BID #14 cap - Diet Type: Geriatric Texture: Regular Liquids: Thin May have monthly special meal: Yes - Therapies | Activity Therapy: Evaluation | Treat if indicated: PT, OT Rehabilitation Potential: Maximize functional status Activity: Activity as Tolerated Weight Bearing: Full Weight Assistance Devices: Walker"
[2023-11-08 13:51] VITALS: BP 124/72; O2SAT 90
[2023-11-08] MEDS ORDERED: WARFARIN 1 MG TABLET PO SCH (18:00)
--- NOTE | 2023-11-08 18:35 | DISCHARGE SUMMARY ---
Discharge Summary Admit Date: 11/05/23 Discharge Date: 11/08/23 Discharging Provider: Emiliana Ribera MD Primary Care Provider: [facility] Dr. Cha Camacho Condition at Discharge: Critical Discharge Disposition: 03 SNF DC/Xfer - DIAGNOSES Discharge Diagnoses with Status of Each Condition: 1. Septic shock 2. Proteus and E. coli UTI 3. Pneumonia 4. Atrial fibrillation with rapid ventricular response 5. Acute congestive heart failure, with fluid overload resolved 6. Generalized weakness 7. Iron deficiency anemia 8. Hyperglycemia 9. Dementia 10. Acute respiratory failure with hypoxia - HPI History of Present Illness: This is a 72 yo F with history of multiple medical problems including DM2, CAD, peripheral neuropathy, dementia, CVA, hypoxic brain injury, HTN, A fib on coumadin, CHF, chronic pain and Charcot-Gia disease came with fever. Due to her dementia, the history is extremely limited. The pt came from [facility] for fever. At this time the pt is mumbling and not answering any questions. Per ER physician's note "72yF with pmh htn, afib on warfarin, dementia, presents from [facility] with fever and rapid heart rate. patient c/o shoulder pain but denies urinary sx or abdominal pain. she has chronic indwelling claire. sepsis code called on arrival. further history limited by patient acuity." - Past Medical History Cardiovascular: reports: Congestive heart failure, Hypertension, Coronary artery disease, Deep vein thrombosis, Atrial fibrillation Respiratory: reports: Shortness of breath Neuro: reports: Dementia, CVA Endocrine/Autoimmune: reports: Type 2 diabetes GI: reports: GERD, GI bleed HUMAN RESOURCES INTERN: reports: None : reports: Kidney stones HEENT: reports: Chronic vision loss Psych: reports: Depression, Anxiety Musculoskeletal: reports: Osteoarthritis, Chronic back pain Derm: reports: None MRSA Hx?: No - Past Surgical History General: reports: Cholecystectomy Ortho: reports: Knee replacement, Other HEENT: reports: Cataracts - HOSPITAL COURSE Hospital Course: Greater than 30 minutes was spent coordinating discharge this document was made in part using voice recognition software. While efforts are made to proofread this document, sound alike and grammatical errors may occur. - ALLERGIES Allergies/Adverse Reactions: Allergies Allergy/AdvReac Type Severity Reaction Status Date / Time clindamycin Allergy Unknown Verified 11/05/23 07:42 phenobarbital Allergy Hives Verified 11/05/23 04:59 morphine AdvReac Intermediate Hallucinati Verified 11/05/23 04:59 ons doxycycline AdvReac Nausea Verified 11/05/23 04:59 - MEDICATIONS Home Medications: Ambulatory Orders Medication Instructions Recorded Confirmed Duloxetine HCl [Cymbalta] 60 mg PO DAILY 07/19/20 11/05/23 Potassium Chloride 10 meq PO Q48H 07/19/20 11/05/23 Solifenacin Succinate [Vesicare] 5 mg PO DAILY 07/19/20 11/05/23 Acetaminophen [Tylenol] 650 mg PO Q6H PRN 11/05/23 11/05/23 Cyclobenzaprine HCl 5 mg PO DAILY 11/05/23 11/05/23 Pregabalin [Lyrica] 100 mg PO TID 11/05/23 11/05/23 ARIPiprazole [Abilify] 10 mg PO QPM #20 tab 11/08/23 11/05/23 Atorvastatin Calcium [Lipitor] 80 mg PO QPM #30 tab 11/08/23 11/05/23 Cefdinir 300 mg PO BID #14 cap 11/08/23 Cetirizine HCl [Allergy Relief] 5 mg PO DAILY #0 11/08/23 11/05/23 Furosemide [Lasix] 20 mg PO DAILY #30 tab 11/08/23 11/05/23 HYDROcod/ACETAM 5/325 [[place] 5/325] 0.5 ea PO TID #0 tab 11/08/23 11/05/23 Metoprolol Succinate [Toprol Xl] 50 mg PO BID tab 11/08/23 Pantoprazole [Protonix] 40 mg PO BID #0 11/08/23 11/05/23 Warfarin [Coumadin] 1 mg PO MOFR #0 11/08/23 11/05/23 Warfarin [Coumadin] 2 mg PO SUTUWETHSA #0 11/08/23 11/05/23 - LABS Result Diagrams: 11/08/23 04:45 11/08/23 04:45 - SEPSIS Current Stage of Sepsis: Resolved Possible source of Sepsis: Pulmonary, Genitourinary Sepsis Criteria: Recorded Heart Rate greater than 90 bpm, WBC count greater than 12,000 or less than 4000, MAP less than 65 mmHg
== END 2023-11-08 15:00 | DRG 871 ==
LOC: EDUNIT# → ED 04:44 → ICU 08:54 → MS2 11-06 13:19
PROVIDERS: ADMIT Internal Medicine; ATTEND Specialist
DX: A41.9 Sepsis, unspecified organism (principal); A41.51 Sepsis due to Escherichia coli [E. coli]; J18.9 Pneumonia, unspecified organism; R65.21 Severe sepsis with septic shock; J96.01 Acute respiratory failure with hypoxia; R94.31 Abnormal electrocardiogram [ECG] [EKG]; E11.9 Type 2 diabetes mellitus without complications; Z20.818 Contact with and (suspected) exposure to other bacterial communicable diseases; Z20.822 Contact with and (suspected) exposure to COVID-19; Z20.828 Contact with and (suspected) exposure to other viral communicable diseases; N39.0 Urinary tract infection, site not specified; A41.59 Other Gram-negative sepsis; B96.20 Unspecified Escherichia coli [E. coli] as the cause of diseases classified elsewhere; B96.4 Proteus (mirabilis) (morganii) as the cause of diseases classified elsewhere; I48.91 Unspecified atrial fibrillation; R53.1 Weakness; D50.9 Iron deficiency anemia, unspecified; F03.90 Unspecified dementia, unspecified severity, without behavioral disturbance, psychotic disturbance, mood disturbance, and anxiety; E11.65 Type 2 diabetes mellitus with hyperglycemia; I25.10 Atherosclerotic heart disease of native coronary artery without angina pectoris; E11.42 Type 2 diabetes mellitus with diabetic polyneuropathy; I11.0 Hypertensive heart disease with heart failure; I50.9 Heart failure, unspecified; G89.29 Other chronic pain; G60.0 Hereditary motor and sensory neuropathy; K21.9 Gastro-esophageal reflux disease without esophagitis; M54.9 Dorsalgia, unspecified; F41.9 Anxiety disorder, unspecified; F32.A Depression, unspecified; Z79.01 Long term (current) use of anticoagulants; Z79.899 Other long term (current) drug therapy; Z86.718 Personal history of other venous thrombosis and embolism; Z86.73 Personal history of transient ischemic attack (TIA), and cerebral infarction without residual deficits; Z88.1 Allergy status to other antibiotic agents; Z88.5 Allergy status to narcotic agent; Z88.8 Allergy status to other drugs, medicaments and biological substances; Z96.0 Presence of urogenital implants
CPT/HCPCS: 36415; 71045; 80048; 80053; 81001; 82272; 82330; 83036; 83540; 83605; 83690; 83735; 83880; 84100; 84466; 85025; 85027; 85045; 85610; 87040; 87077; 87086; 87150; 87181; 87493; 87633; 93005; 93307; 96361; 96365; 96375; 97162; 97166; 99285; A9270; 81003

== ENCOUNTER 2023-11-08 15:08 | Outpatient (CLI) | payer MEDICARE, BC | END 2023-11-08 23:59 | LOC: EMS 15:08 | PROVIDERS: ATTEND Specialist | DX: R53.1 Weakness (principal); F03.90 Unspecified dementia, unspecified severity, without behavioral disturbance, psychotic disturbance, mood disturbance, and anxiety; R41.0 Disorientation, unspecified | CPT/HCPCS: A0425; A0428 ==

== ENCOUNTER 2023-11-23 17:21 | Outpatient (CLI) | payer MEDICARE, BC | END 2023-11-23 17:22 | disposition critical access hospital (66) | LOC: EMS 17:21 | DX: R41.82 Altered mental status, unspecified (principal); R68.83 Chills (without fever); R00.0 Tachycardia, unspecified; R09.89 Other specified symptoms and signs involving the circulatory and respiratory systems; Z99.81 Dependence on supplemental oxygen | CPT/HCPCS: A0425; A0429 ==

== ENCOUNTER 2023-11-23 17:28 | Inpatient (IN) | payer MEDICARE, BC ==
[2023-11-23 18:05] LABS: BASOPHILS # (AUTO) 0.1 10^3/uL (0.0-0.1); BASOPHILS % (AUTO) 0.2 %; EOSINOPHILS % (AUTO) 0.1 %; HCT - HEMATOCRIT 33.6 % (37.0-47.0); HGB - HEMOGLOBIN 9.4 g/dL (12.0-16.0); LYMPHOCYTES # (AUTO) 0.7 10^3/uL (1.5-3.5); LYMPHOCYTES % (AUTO) 3.2 %; MEAN CORPUSCULAR HEMOGLOBIN 21.7 pg (27.0-31.0); MEAN CORPUSCULAR VOLUME 77.6 fL (81.0-99.0); MONOCYTES # (AUTO) 0.9 10^3/uL (0.0-1.0); MONOCYTES % (AUTO) 3.9 %; NEUTROPHILS # (AUTO) 20.9 10^3/uL (1.5-6.6); NEUTROPHILS % (AUTO) 92.1 %; PLT - PLATELET COUNT 525 10^3/uL (130-450); RED BLOOD COUNT 4.33 10^6/uL (4.20-5.40); RED CELL DISTRIBUTION WIDTH 19.1 % (12.0-15.0); WHITE BLOOD COUNT 22.7 x10^3/uL (4.8-10.8)
--- NOTE | 2023-11-23 18:06 | XRAY Report ---
PROCEDURE: Chest 1V INDICATIONS: chest pain TECHNIQUE: One view of the chest was acquired. COMPARISON: 11/05/2023. FINDINGS: Surgical changes and devices: None. Lungs and pleura: There is pulmonary vascular congestion. Mild pulmonary edema is also seen. Ill-def ined patchy airspace opacities are seen scattered in bilateral lung anthony. Trace left pleural effusi on is likely present. No gross pneumothorax. Mediastinum: Mediastinal contours appear normal. Heart size is enlarged. Bones and chest wall: No suspicious bony lesions. Overlying soft tissues appear unremarkable. IMPRESSION: Cardiomegaly and mild congestion. Suggestion of scattered infiltrate/atelectasis in bilateral lung fi elds. Trace left pleural effusion. No pneumothorax. Reviewed by: John Medel MD on 11/23/2023 6:05 PM PDT Approved by: John Medel MD on 11/23/2023 6:05 PM PDT Station ID: [id number]
[2023-11-23 18:15] LABS: SLIDE REVIEW? Indicated
[2023-11-23] MEDS: SODIUM CHLORIDE 0.9% 1,000 ML IV STA ×2 (18:17→19:18)
[2023-11-23 18:24] LABS: ALBUMIN 3.4 g/dL (3.2-5.5); ALBUMIN/GLOBULIN RATIO 0.7 (1.0-2.2); BILIRUBIN,TOTAL 0.6 mg/dL (0.2-1.0); CREATININE 0.7 mg/dL (0.6-1.3); POTASSIUM 4.3 mmol/L (3.5-4.5)
[2023-11-23 18:36] LABS: BILIRUBIN,URINE NEGATIVE (NEGATIVE); GLUCOSE, URINE (UA) NEGATIVE (NEGATIVE); KETONES,URINE (UA) NEGATIVE (NEGATIVE); LEUKOCYTE ESTERASE, URINE MODERATE (NEGATIVE); NITRITE,URINE NEGATIVE (NEGATIVE); OCCULT BLOOD,URINE NEGATIVE (NEGATIVE); PH,URINE >=9.0 PH (5.0-7.5); PROTEIN,URINE 100 mg/dL (NEGATIVE); UROBILINOGEN,URINE 0.2 (NORMAL) E.U./dL (NORMAL)
[2023-11-23 18:57] LABS: AMORPHOUS SEDIMENT,UR Moderate /LPF; BACTERIA,URINE Rare /HPF (None Seen); CLARITY,URINE CLOUDY (CLEAR); SQUAMOUS EPITHELIAL CELL,UR RARE Squamous (<= Few)
[2023-11-23] MEDS: PIPERACILLIN/TAZOBACTAM 4.5 GM in SODIUM CHLORIDE 0.9% MINIBAG 100 ML IV STA (18:57)
[2023-11-23 19:07] LABS: PLATELET ESTIMATE, MANUAL INCREASED (>450,000) (NORMAL); PLATELET MORPHOLOGY NORMAL APPEARANCE (NORMAL)
[2023-11-23] MEDS ORDERED: iohexoL-300 100 ML VIAL ONE (19:18)
[2023-11-23] MEDS: iohexoL-300 100 ML VIAL IVP ONE (19:48)
[2023-11-23] MEDS: METOPROLOL 5 MG/5 ML VIAL IVP STA (19:59)
--- NOTE | 2023-11-23 20:16 | ED Physician Documentation ---
History of Present Illness - Stated complaint Stated Complaint: AMS - Chief complaint Chief Complaint: General - History obtained from History obtained from: Patient - Additonal information Additional information: This is a 72-year-old female who according to chart review has a history of dementia and was admitted here last month for a Klebsiella and Proteus UTI with sepsis, discharged back to her care facility on 11/07, additional history of type 2 diabetes, CAD, prior CVA, hypoxic brain injury, hypertension, atrial fibrillation on Coumadin, CHF. Today, the patient was apparently more altered t bach normal and was noted to have a heart rate in the 130s therefore she was sent to the ER via EMS. The patient is unable to provide much information secondary to dementia but denies any acute complaints. She tells me she is sad because her daughter last year and they were very close. She also tells me she was hoping to go home to her sons house this weekend. She does note she had a m ild cough recently, no cp or dyspnea, no abd pain, no n/v/d. She has had right hand pain for a month or so. Review of Systems Unable to obtain: Confused PD PAST MEDICAL HISTORY - Past Medical History Past Medical History: Yes Cardiovascular: Congestive heart failure, Hypertension, Coronary artery disease, Deep vein thrombosis, Atrial fibrillation Respiratory: Shortness of breath Neuro: Dementia, CVA Endocrine/Autoimmune: Type 2 diabetes GI: GERD, GI bleed SLOT SHIFT MANAGER: None : Kidney stones HEENT: Chronic vision loss Psych: Depression, Anxiety Musculoskeletal: Osteoarthritis, Chronic back pain Derm: None - Past Surgical History Past Surgical History: Yes General: Cholecystectomy Ortho: Knee replacement, Other HEENT: Cataracts - Present Medications Home Medications: Ambulatory Orders Medication Instructions Recorded Confirmed Duloxetine HCl [Cymbalta] 60 mg PO DAILY 07/19/20 11/05/23 Potassium Chloride 10 meq PO Q48H 07/19/20 11/05/23 Solifenacin Succinate [Vesicare] 5 mg PO DAILY 07/19/20 11/05/23 Acetaminophen [Tylenol] 650 mg PO Q6H PRN 11/05/23 11/05/23 Cyclobenzaprine HCl 5 mg PO DAILY 11/05/23 11/05/23 Pregabalin [Lyrica] 100 mg PO TID 11/05/23 11/05/23 ARIPiprazole [Abilify] 10 mg PO QPM #20 tab 11/08/23 11/05/23 Atorvastatin Calcium [Lipitor] 80 mg PO QPM #30 tab 11/08/23 11/05/23 Cefdinir 300 mg PO BID #14 cap 11/08/23 Cetirizine HCl [Allergy Relief] 5 mg PO DAILY #0 11/08/23 11/05/23 Furosemide [Lasix] 20 mg PO DAILY #30 tab 11/08/23 11/05/23 HYDROcod/ACETAM 5/325 [[place] 5/325] 0.5 ea PO TID #0 tab 11/08/23 11/05/23 Metoprolol Succinate [Toprol Xl] 50 mg PO BID tab 11/08/23 Pantoprazole [Protonix] 40 mg PO BID #0 11/08/23 11/05/23 Warfarin [Coumadin] 1 mg PO MOFR #0 11/08/23 11/05/23 Warfarin [Coumadin] 2 mg PO SUTUWETHSA #0 11/08/23 11/05/23 - Allergies Allergies/Adverse Reactions: Allergies Allergy/AdvReac Type Severity Reaction Status Date / Time clindamycin Allergy Unknown Verified 11/23/23 17:34 phenobarbital Allergy Hives Verified 11/23/23 17:34 morphine AdvReac Intermediate Hallucinati Verified 11/23/23 17:34 ons doxycycline AdvReac Nausea Verified 11/23/23 17:34 - Social History Does the pt smoke?: No Smoking Status: Never smoker Does the pt drink ETOH?: No Does the pt have substance abuse?: Yes - Immunizations Immunizations are current?: Yes - POLST Patient has POLST: Yes POLST Status: Full Code PD ED PE NORMAL - Vitals Vital signs reviewed: Yes - General General: Other (Tachycardic but nontoxic-appearing, confused) - HEENT HEENT: Atraumatic - Neck Neck: Supple, no meningeal sign - Cardiac Cardiac: No murmur, No gallop, Strong equal pulses, Other (tachycardic 140s) - Respiratory Respiratory: No respiratory distress, Other (dim bibasilar) - Abdomen Abdomen: Normal bowel sounds, Soft, Non tender, Non distended - Derm Derm: Normal color, Warm and dry - Extremities Extremities: No deformity, No edema, Other (contracted right hand. ) - Neuro Neuro: Other (confused, tremors. ) Eye Opening: Spontaneous Verbal: Confused Results - Vitals Vitals: Vital Signs - 24 hr 11/23/23 11/23/23 11/23/23 17:34 17:40 18:10 Temperature 37.5 C Heart Rate 140 H 141 H 141 H Respiratory 16 21 22 Rate Blood Pressure 128/83 H 100/72 100/72 O2 Saturation 94 91 L 96 If not protocol 4 4 : Oxygen Flow, liters/minute 11/23/23 11/23/23 11/23/23 18:30 19:00 19:05 Temperature Heart Rate 142 H 142 H 137 H Respiratory 22 22 24 Rate Blood Pressure 117/53 L 113/37 L 115/65 O2 Saturation 95 96 100 If not protocol 4 4 3 : Oxygen Flow, liters/minute 11/23/23 11/23/23 11/23/23 19:10 19:57 20:19 Temperature Heart Rate 135 H 137 H 137 H Respiratory 20 26 H 23 Rate Blood Pressure 127/63 115/62 125/51 L O2 Saturation 98 96 96 If not protocol 3 6 3 : Oxygen Flow, liters/minute 11/23/23 20:54 Temperature Heart Rate 137 H Respiratory 20 Rate Blood Pressure 116/54 L O2 Saturation 95 If not protocol 3 : Oxygen Flow, liters/minute Oxygen O2 Source Nasal cannula - EKG (time done) No standard instances EKG releavant findings:: EKG personally interpreted by author of this note. Relevant findings are: Rate: Rate (enter#) (141), Tachy Rhythm: Sinus tachycardia Computer interpretation: Agree with computer - Labs Labs: Laboratory Tests 11/23/23 11/23/23 11/23/23 17:54 17:54 17:57 WBC 22.7 H RBC 4.33 Hgb 9.4 L Hct 33.6 L MCV 77.6 L MCH 21.7 L MCHC 28.0 L RDW 19.1 H Plt Count 525 H MPV 10.0 Neut # (Auto) 20.9 H Lymph # (Auto) 0.7 L [place] # (Auto) 0.9 Eos # (Auto) 0.0 Baso # (Auto) 0.1 Absolute Nucleated RBC 0.00 Nucleated RBC % 0.0 Manual Slide Review Indicated Platelet Estimate INCREASED (>450,000) Platelet Morphology NORMAL APPEARANCE RBC Morph Micro Appear 2+ HYPOCHROMASIA Sodium 138 Potassium 4.3 Chloride 97 L Carbon Dioxide 34 H Anion Gap 7.0 BUN 32 H Creatinine 0.7 Estimated GFR (MDRD) 82 L Glucose 156 H Lactic Acid Calcium 9.0 Total Bilirubin 0.6 AST 11 ALT 7 L Alkaline Phosphatase 126 H Total Protein 8.0 Albumin 3.4 Globulin 4.6 H Albumin/Globulin Ratio 0.7 L Urine Color YELLOW Urine Clarity CLOUDY Urine pH >=9.0 H Ur Specific [place] <=1.005 Urine Protein 100 H Urine Glucose (UA) NEGATIVE Urine Ketones NEGATIVE Urine Occult Blood NEGATIVE Urine Nitrite NEGATIVE Urine Bilirubin NEGATIVE Urine Urobilinogen 0.2 (NORMAL) Ur Leukocyte Esterase MODERATE H Urine RBC 6-10 H Urine WBC 6-10 H Ur Squamous Epith Cells RARE Squamous Amorphous Sediment Moderate Urine Bacteria Rare Urine Culture Comments INDICATED 11/23/23 17:58 WBC RBC Hgb Hct MCV MCH MCHC RDW Plt Count MPV Neut # (Auto) Lymph # (Auto) [place] # (Auto) Eos # (Auto) Baso # (Auto) Absolute Nucleated RBC Nucleated RBC % Manual Slide Review Platelet Estimate Platelet Morphology RBC Morph Micro Appear Sodium Potassium Chloride Carbon Dioxide Anion Gap BUN Creatinine Estimated GFR (MDRD) Glucose Lactic Acid 1.2 Calcium Total Bilirubin AST ALT Alkaline Phosphatase Total Protein Albumin Globulin Albumin/Globulin Ratio Urine Color Urine Clarity Urine pH Ur Specific [place] Urine Protein Urine Glucose (UA) Urine Ketones Urine Occult Blood Urine Nitrite Urine Bilirubin Urine Urobilinogen Ur Leukocyte Esterase Urine RBC Urine WBC Ur Squamous Epith Cells Amorphous Sediment Urine Bacteria Urine Culture Comments - Rads (name of study) No standard instances Relevant Findings:: Final report received PD Medical Decision Making - ED course Complexity details: reviewed results, re-evaluated patient, considered differential ED course: 72-year-old female presented with altered mental status and tachycardia from her care facility today. The patient has extensive past medical history as listed above and was recently in the hospital for Klebsiella and Proteus UTI with sepsis. The patient is conversant, she is confused and unable to provide any history. She has no specific complaints other than right hand pain which she appears is not new. Given her tachycardia and altered mental status there is concern for sepsis therefore broad workup was undertaken, blood cultures obtained, and patient started on IV hydration. She received a total of 2 L no rmal saline here, and after blood cultures obtained was started on broad- spectrum antibiotics. Lab analysis reveals a white blood cell count of 22,000, Hemoglobin of 9.4 which is improved from prior, her BUN is 32 but creatinine is stable, otherwise stable CMP, lactic acid was 1.2, urinalysis concerning for possible infection with moderate leuk esterase and 6-10 WBCs. This was sent for culture. His UA was not convincing source of infection, I did do a CT chest abdomen pelvis on this patient which showed possible pneumonia versus atelectasis, she also has some signs of CHF. Patient did require slightly increase in oxygen from baseline of 2 to as high 6 here that was titrated down to 3 L. She is not complaining of any shortness of breath however. Given her tachycardia with stable blood pressure, did give her metoprolol 10 mg IV which temporarily Improved her tachycardia but it has been persistently in the 130s with stable blood pressure.She is not currently in atrial fibrillation. In any case, the patient does require hospitalization, and I have spoken with hospitalist service who is kindly agreed to admit for possible pneumonia, possible UTI, sepsis, tachycardia. At this time, patient supposed indicates that she is a full code with limited intervention.. Departure - Departure Disposition: [address] [facility] DC/Xfer Clinical Impression: Sepsis Qualifiers: Sepsis type: sepsis due to unspecified organism Sepsis acute organ dysfunction status: without acute organ dysfunction Qualified Code(s): A41.9 - Sepsis, unspecified organism UTI (urinary tract infection) Qualifiers: Urinary tract infection type: catheter-associated UTI Indwelling urinary catheter type: indwelling urethral catheter Encounter type: initial encounter Qualified Code(s): T83.511A - Infection and inflammatory reaction due to indwelling urethral catheter, initial encounter; N39.0 - Urinary tract infection, site not specified Pneumonia Qualifiers: Pneumonia type: due to unspecified organism Laterality: bilateral Lung location: unspecified part of lung Qualified Code(s): J18.9 - Pneumonia, unspecified organism Condition: Good Forms: PCP List
--- NOTE | 2023-11-23 20:21 | CT Report ---
PROCEDURE: Chest W INDICATIONS: sepsis, unknown etiology CONTRAST: 100ml [id number] TECHNIQUE: After the administration of intravenous contrast, a CT scan of the chest was performed. Images were recorded and evaluated at appropriate window settings. Reformats: axial MIP of the chest, coronal and sagittal. For radiation dose reduction, the following was used: automated exposure control, adjustme nt of mA and/or kV according to patient size. COMPARISON: Chest radiograph from earlier same day. FINDINGS: Image quality: Diagnostic. Chest wall and lower neck: Enlarged, heterogeneous thyroid gland most pronounced in the left lower lo be. No definable/measurable thyroid nodules. Coarse thyroid and no. No breast mass. No axillary or perez praclavicular adenopathy by size. Lungs and pleura: There is crowding of the bronchovasculature involving the medial aspect of the bila teral lower lobes with associated volume loss and dense consolidations favored to represent atelectas is. Underlying mass cannot be completely excluded. Mild airway thickening. Patchy groundglass opaciti es of the bilateral upper lobes. Scattered nodular densities of the periphery of the inferior left up per lobe, left lower lobe, and minimally involving the upper aspect of the right lower lobe. No septa l thickening or nodularity. No pleural effusions. No pneumothorax. Mediastinum: Heart size is mildly enlarged No pericardial effusion. No large vessel abnormality. Mult iple mediastinal lymph nodes are more notable for number rather than size and likely reactive in etio logy. Prominent bilateral hilar lymph nodes more pronounced on the right. Prominent right hilar lymph nodes in combination with medial right lower lobe opacities correlate with right hilar contour seen on comparison radiograph. Eventration of the right hemidiaphragm. Bones: No aggressive osseous abnormality. No acute compression fracture. Upper Abdomen: Please see separate report for dedicated imaging of the abdomen and pelvis obtained . IMPRESSION: Bilateral medial lower lobe consolidations more pronounced on the left with associated crowding of th e bronchovasculature, mild perihilar airway thickening, scattered peripheral nodular densities, and p atchy upper lobe groundglass opacities may represent combination of atelectasis and pneumonia/aspirat ion. Underlying pulmonary mass cannot be completely excluded as there is enlargement of the right hil ar lymph nodes and prominence of the mediastinal and left hilar nodes. Short interval follow-up chest CT recommended after appropriate treatment and resolution of acute symptoms. Additionally, cardiomegaly with described mild patchy upper lobe predominant groundglass opacities ma y be related to pulmonary edema. Enlarged, heterogeneous thyroid gland more pronounced on the left with coarse thyroid calcifications and no definable/measurable nodules. Recommend clinical/laboratory correlation. Reviewed by: Herman Pitt MD on 11/23/2023 8:19 PM PDT Approved by: Herman Pitt MD on 11/23/2023 8:19 PM PDT Station ID: [id number]
--- NOTE | 2023-11-23 20:28 | CT Report ---
PROCEDURE: Abdomen/Pelvis W INDICATIONS: sepsis, unclear etiology CONTRAST: 100ml [id number] TECHNIQUE: After the administration of intravenous contrast, a CT scan of the abdomen and pelvis was performed. Images were recorded and evaluated at appropriate window settings. Reformats: coronal and sagittal. F or radiation dose reduction, the following was used: automated exposure control, adjustment of mA and /or kV according to patient size. COMPARISON: CT chest from same day. FINDINGS: Image quality: Diagnostic. Lower chest: Bilateral lower lobe consolidations more pronounced on the left. Please see dedicated CT chest report from same day for further details. Liver: No solid mass. Gallbladder: Surgically absent. Biliary tree: No intrahepatic or extrahepatic dilation, accounting for a post-cholecystectomy state. Spleen: No splenomegaly. There is a 1.1 cm hypodense lesion visualized near the anterior aspect of th e spleen likely representing a cyst or hemangioma. Pancreas: No pancreatic ductal dilation. Adrenals: No adrenal nodule. Kidneys and ureters: No hydronephrosis. No renal cystic lesion which requires follow up. No solid mas s. Stomach, bowel and peritoneum: No gastric or small bowel dilation. No abnormal wall thickening. No pa thologic free fluid. Moderate fecal burden seen throughout the colon with suggestion of mild fecal im paction of the rectum. No significant rectal wall thickening or inflammatory stranding. Lymph nodes: No central or retroperitoneal adenopathy. Vessels: No infrarenal aortic aneurysm. Patent portal vein. PELVIS Reproductive organs: Unremarkable. Bladder: Urinary bladder decompressed by Marquez catheter. Small amount of air within the urinary bladd er likely from Marquez catheter placement. Recommend clinical/laboratory correlation to exclude underly ing infectious uropathy. Pelvic lymph nodes: No pelvic adenopathy by size criteria. Bones: No aggressive osseous abnormality. Multilevel spondylosis of the imaged spine. No acute compre ssion fractures. Other: No significant ventral or inguinal hernia. Postsurgical changes prior ventral hernia repair. IMPRESSION: Urinary bladder decompressed by Marquez catheter. Small amount of air within the urinary bladder likely related to Marquez catheter placement. Cystitis secondary to air producing organism not excluded. Neil mmend clinical/laboratory correlation. Otherwise, no acute abnormalities identified in the abdomen or pelvis. Please see separate report for findings in the chest. Moderate fecal burden seen throughout the colon with suggestion of mild fecal impaction of the rectum . Other chronic findings as above. Reviewed by: Herman Pitt MD on 11/23/2023 8:27 PM PDT Approved by: Herman Pitt MD on 11/23/2023 8:27 PM PDT Station ID: [id number]
--- NOTE | 2023-11-23 21:33 | HISTORY & PHYSICAL EXAMINATION ---
Chief Complaint - Chief Complaint Chief Complaint: altered mental status History of Present Illness - Admitted From Admitted From:: assisted living facility - History Obtained From History obtained from: ER staff, chart review Exam Limitations: telemedicine - History of Present Illness HPI Comment/Other: Ms Acosta is a 72 yo F with history of paroxysmal A fib on Coumadin, HTN, HFrEF (last echo October 2023 with EF 40-45%), dementia, resides at assisted living facility. Presents with altered mental status, unclear her baseline however per ER staff report patient was noted to be more drowsy than usual. Difficult to obtain history via tele-monitor, patient is hard of hearing, RN at bedside to assist. Patient is able to tell me her full name, she thinks we are at [facility] (where she resides). Not oriented to time. Patient reports she is having pain in her shoulders, although medication reconciliation lists [place] patient reports she does not take, will try Tylenol. She denies cp, palpitations, sob, cough. Denies fevers, reports chills. She states that she coughs/chokes on food. She is not sure why she is the hospital, reports she had a fall where her feet gave out, but that was [address] chest shows bilateral lower lobe consolidations, patient was initially on 6 L NC, now on 3 L NC. Lactic 1.2 She remains tachycardic in 130s (sinus) despite 2 L IV fluids, blood pressure stable systolic 110s. Patient was recently admitted to [facility] 11/04-11/07 for septic shock secondary to proteus and E coli UTI, pneumonia, acute hypoxic respiratory failure, A fib RVR. POLST form indicates full code with limited interventions (per ER provider review of records from facility). 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 Patient's father at age 62 from lung cancer and colon cancer. Both the patient and her sister had genetic disease of [place]-[id number]-[id number] foot. 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 Patient has a history overdosage accidentally with opiate use - POLST Patient has POLST: Yes POLST Status: Full Code Meds/Allgy - Home Medications Home Medications: Ambulatory Orders Medication Instructions Recorded Confirmed Duloxetine HCl [Cymbalta] 60 mg PO DAILY 07/19/20 11/05/23 Potassium Chloride 10 meq PO Q48H 07/19/20 11/05/23 Solifenacin Succinate [Vesicare] 5 mg PO DAILY 07/19/20 11/05/23 Acetaminophen [Tylenol] 650 mg PO Q6H PRN 11/05/23 11/05/23 Cyclobenzaprine HCl 5 mg PO DAILY 11/05/23 11/05/23 Pregabalin [Lyrica] 100 mg PO TID 11/05/23 11/05/23 ARIPiprazole [Abilify] 10 mg PO QPM #20 tab 11/08/23 11/05/23 Atorvastatin Calcium [Lipitor] 80 mg PO QPM #30 tab 11/08/23 11/05/23 Cefdinir 300 mg PO BID #14 cap 11/08/23 Cetirizine HCl [Allergy Relief] 5 mg PO DAILY #0 11/08/23 11/05/23 Furosemide [Lasix] 20 mg PO DAILY #30 tab 11/08/23 11/05/23 HYDROcod/ACETAM 5/325 [Milan 5/325] 0.5 ea PO TID #0 tab 11/08/23 11/05/23 Metoprolol Succinate [Toprol Xl] 50 mg PO BID tab 11/08/23 Pantoprazole [Protonix] 40 mg PO BID #0 11/08/23 11/05/23 Warfarin [Coumadin] 1 mg PO MOFR #0 11/08/23 11/05/23 Warfarin [Coumadin] 2 mg PO SUTUWETHSA #0 11/08/23 11/05/23 - Allergies Allergies/Adverse Reactions: Allergies Allergy/AdvReac Type Severity Reaction Status Date / Time clindamycin Allergy Unknown Verified 11/23/23 17:34 phenobarbital Allergy Hives Verified 11/23/23 17:34 morphine AdvReac Intermediate Hallucinati Verified 11/23/23 17:34 ons doxycycline AdvReac Nausea Verified 11/23/23 17:34 Review of Systems - Constitutional Constitutional: reports: Fatigue, Chills, Malaise, Weakness. denies: Fever - Cardiovascular Cariovascular: reports: Edema. denies: Palpitations, Chest pain, Lightheadedness, Syncope - Respiratory Respiratory: reports: Cough (with eating). denies: Sputum production - Gastrointestinal Gastrointestinal: denies: Abdominal pain, Diarrhea, Nausea, Vomiting - Integumentary Integumentary: denies: Rash, Pruritis - Neurological Neurological: reports: General weakness Exam - Vital Signs Reviewed Vital Signs: Yes Vital Signs: Vital Signs x48h Temp Pulse Resp BP Pulse Ox O2 Flow Rate 11/23/23 20:54 137 H 20 116/54 L 95 3 11/23/23 20:19 137 H 23 125/51 L 96 3 11/23/23 19:57 137 H 26 H 115/62 96 6 11/23/23 19:10 135 H 20 127/63 98 3 11/23/23 19:05 137 H 24 115/65 100 3 11/23/23 19:00 142 H 22 113/37 L 96 4 11/23/23 18:30 142 H 22 117/53 L 95 4 11/23/23 18:10 141 H 22 100/72 96 4 11/23/23 17:40 141 H 21 100/72 91 L 4 11/23/23 17:34 37.5 C 140 H 16 128/83 H 94 - Physical Exam General Appearance: positive: No acute distress, Alert Eyes Bilateral: positive: Normal inspection Respiratory: positive: No respiratory distress Cardiovascular: positive: Tachycardia Abdomen: positive: Non-tender Skin: positive: Color nml Extremities: positive: Pedal edema (mild LE edema per RN exam) Neurologic/Psychiatric: positive: Disoriented to place, Disoriented to time, Other (oriented to self only) Sepsis Event Note (H) - Evaluation Current Stage of Sepsis: Sepsis Possible source of Sepsis: positive: Pulmonary - Sepsis Criteria Sepsis Criteria: Recorded Heart Rate greater than 90 bpm, WBC count greater than 12,000 or less than 4000 Conclusion/Plan - Lab Results Lab results reviewed: Yes Fish Bones: 11/23/23 17:54 11/23/23 17:54 - Diagnostic Imaging Results Diagnostic Imaging Results: positive: Final report reviewed - EKG Results EKG Interpreted Independently: Yes EKG Findings: sinus tachycardia - Other Other Results/Comments: Assessment/Plan: Sepsis secondary to bilateral lower lobe pneumonia, possible recurrent UTI Acute hypoxia -Recent hospitalization 11/04-11/07 for sepsis, UTI, pneumonia -Bilateral lower lobe consolidations on CXR -Pt reports choking with eating -NPO for now -CURB ATTENDANT consult for further evaluation, ?aspiration -Sepsis criteria with tachycardia HR 130s, WBC 22, lactic 1.2 -Continue IV zosyn, added IV vancomycin given recent hospitalization -Follow up MRSA swab -Follow up urine cultures, blood cultures -Wean supplemental O2 as tolerated Acute on chronic HFrEF exacerbation Pulmonary vascular congestion noted on CT -Patient received 2 L IV fluids in ER for sepsis/tachycardia -Currently O2 requirements have improved from 6 L NC to 3 L NC -Will hold on further IV fluids and resume home Lasix 20 mg for tomorrow a.m. Sinus tachycardia -Likely secondary to acute infection -Received IV fluids in ER -Continue telemetry, monitor in ICU -Monitor blood pressures closely History of chronic pain -Patient reports she is not taking [place] -Noted Lyrica on med rec - will hold until med/dose verified by pharmacy History of paroxysmal A fib on Warfarin -Continue metoprolol -Follow up INR -Coumadin, pharmacy consult DVT ppx: Coumadin Full code (per POLST form facility)
[2023-11-23] MEDS ORDERED: METOPROLOL SUCCINATE 50 MG TABLET PO SCH (22:00)
[2023-11-23] MEDS: SODIUM CHLORIDE 0.9% 500 ML IV ONE (23:00)
[2023-11-23] MEDS ORDERED: VANCOMYCIN 1 GM VIAL ONE (23:01)
[2023-11-23] MEDS: VANCOMYCIN INJ 2 GM in SODIUM CHLORIDE 0.9% 500 ML IV SCH (23:03)
[2023-11-23] MEDS: METOPROLOL SUCCINATE 50 MG TABLET PO SCH (23:28)
[2023-11-24] MEDS: SODIUM CHLORIDE 0.9% 1,000 ML IV STA (01:19)
--- NOTE | 2023-11-24 01:22 | XRAY Report ---
PROCEDURE: Chest 1V INDICATIONS: R subclavian line placement TECHNIQUE: One view of the chest was acquired. COMPARISON: CT chest and CXR 11/23/2023. FINDINGS: Surgical changes and devices: Right-sided central venous line with the catheter tip at the cavoatria l junction. Right breast clips. Lungs and pleura: No pleural effusions or pneumothorax. Diffuse bilateral airspace opacity. Consolid ative opacity at the left lung base. Mediastinum: Mediastinal contours appear normal. Heart size is enlarged. Bones and chest wall: No suspicious bony lesions. Overlying soft tissues appear unremarkable. IMPRESSION: Right-sided central venous line with the catheter tip at the cavoatrial junction. Left lower lobe pneumonia. Reviewed by: Tim Hanna MD on 11/24/2023 1:21 AM PDT Approved by: Tim Hanna MD on 11/24/2023 1:21 AM PDT Station ID: [id number]
[2023-11-24] MEDS: PIPERACILLIN/TAZOBACTAM 3.375 GM in SODIUM CHLORIDE 0.9% MINIBAG 100 ML IV SCH (03:18)
[2023-11-24 05:35] LABS: BASOPHILS % (AUTO) 0.2 %; HCT - HEMATOCRIT 27.2 % (37.0-47.0); HGB - HEMOGLOBIN 7.9 g/dL (12.0-16.0); LYMPHOCYTES % (AUTO) 4.2 %; MEAN CORPUSCULAR HEMOGLOBIN 22.4 pg (27.0-31.0); MEAN CORPUSCULAR VOLUME 77.3 fL (81.0-99.0); MEAN PLATELET VOLUME 9.2 fL (7.9-10.8); NEUTROPHILS % (AUTO) 88.5 %; PLT - PLATELET COUNT 375 10^3/uL (130-450); RED BLOOD COUNT 3.52 10^6/uL (4.20-5.40); RED CELL DISTRIBUTION WIDTH 18.9 % (12.0-15.0); WHITE BLOOD COUNT 25.9 x10^3/uL (4.8-10.8)
[2023-11-24 05:39] LABS: ABNORMAL LYMPHS % (MANUAL) 0 %; BAND NEUTROPHILS % (MANUAL) 0 %
[2023-11-24 05:40] LABS: INR 2.9 (0.8-1.2); PT - PROTHROMBIN TIME 29.7 secs (9.9-12.6)
[2023-11-24 05:47] LABS: CALCIUM 8.1 mg/dL (8.5-10.3); CREATININE 0.7 mg/dL (0.6-1.3); POTASSIUM 3.5 mmol/L (3.5-4.5)
[2023-11-24 06:12] LABS: DIFFERENTIAL COMMENT MANUAL DIFFERENTIAL; LYMPHOCYTES # (MANUAL) 2.3 10^3/uL (1.5-3.5); LYMPHOCYTES % (MANUAL) 9 %; MONOCYTES # (MANUAL) 1.6 10^3/uL (0.0-1.0)
[2023-11-24 06:13] LABS: PLATELET ESTIMATE, MANUAL NORMAL (130-450,000) (NORMAL); PLATELET MORPHOLOGY NORMAL APPEARANCE (NORMAL); RBC MORPHOLOGY (MULTIPLE) NORMAL APPEARANCE (NORMAL)
[2023-11-24] MEDS: SODIUM CHLORIDE FLUSH 0.9% 10 ML SYRINGE IVP SCH (06:39)
--- NOTE | 2023-11-24 08:08 | PROVIDER PROGRESS NOTE ---
Subjective - Prog Note Date Prog Note Date: 11/24/23 Prog Note Time: 08:07 - Subjective Pt reports feeling: Improved Subjective: She awakens to voice, oriented to self only. thinks she is at home. denies complaints. Current Medications - Current Medications Current Medications: Medications Acetaminophen (Acetaminophen 325 Mg Tablet) 650 mg PO Q6H PRN PRN Reason: PRN PAIN &/OR FEVER Aripiprazole (Aripiprazole 5 Mg Tablet) 10 mg PO QPM [facility] Atorvastatin Calcium (Atorvastatin 40 Mg Tablet) 80 mg PO QPM [facility] Duloxetine HCl (Duloxetine 60 Mg Capsule) 60 mg PO DAILY [facility] Furosemide (Furosemide 20 Mg Tablet) 20 mg PO DAILY [facility] Pantoprazole Sodium (Pantoprazole 40 Mg Tablet) 40 mg PO BID [facility] Piperacillin Sod/Tazobactam (Sod 3.375 gm/ Sodium Chloride) 100 mls @ 200 mls/hr IV Q8H [facility] Last Admin: 11/24/23 03:48 Dose: Infused Pregabalin (Pregabalin 100 Mg Capsule) 100 mg PO TID [facility] Solifenacin (Solifenacin Succinate 5 Mg Tablet) 5 mg PO DAILY [facility] Vancomycin HCl 1.25 gm/ Sodium (Chloride) 250 mls @ 167 mls/hr IV Q12H [facility] Warfarin Sodium (Warfarin 1 Mg Tablet) 2 mg PO SUTUWETHSA [facility]SEA Warfarin Sodium (Warfarin 1 Mg Tablet) 1 mg PO MOFR [facility] Objective - Vital Signs/Intake & Output Reviewed Vital Signs: Yes Vital Signs: Vital Signs x48h Pulse Resp BP Pulse Ox O2 Flow Rate 11/24/23 07:30 135 H 21 129/71 96 3 11/24/23 07:00 119 H 20 97/54 L 94 3 11/24/23 06:30 137 H 20 106/56 L 100 3 11/24/23 06:00 138 H 22 91/53 L 100 3 11/24/23 05:30 136 H 22 116/57 L 98 5 11/24/23 05:00 136 H 20 116/31 L 97 5 11/24/23 04:30 137 H 23 120/63 98 5 11/24/23 04:00 135 H 24 118/66 100 5 11/24/23 03:30 136 H 20 126/74 95 3 11/24/23 03:00 116 H 20 127/80 100 3 11/24/23 02:30 106 H 16 117/59 L 96 3 11/24/23 02:00 104 H 16 115/63 95 3 11/24/23 01:48 99 20 113/63 92 3 11/24/23 01:26 111 H 19 116/59 L 95 3 11/24/23 01:01 113 H 18 113/67 95 3 11/24/23 00:18 106 H 16 73/51 L 98 11/24/23 00:11 113 H 16 73/51 L 98 Intake & Output: Intake & Output 11/21/23 11/22/23 11/23/23 11/24/23 23:59 23:59 23:59 23:59 Intake Total 2600 600 Output Total 400 Balance 2600 200 - Objective General Appearance: positive: No acute distress, Alert Eyes Bilateral: positive: Normal inspection ENT: positive: ENT inspection nml, Other (edentulous with ill fitting dentures) Neck: positive: Nml inspection Respiratory: positive: Chest non-tender, Other (decreased at bases, no adventitous sounds) Cardiovascular: positive: Irregularly irregular (a fib on monitor rate about 130) Abdomen: positive: Non-tender, No distention Skin: positive: Color nml Extremities: positive: Non-tender, No pedal edema Neurologic/Psychiatric: positive: Disoriented to person, Slurred/abnml speech (baseline). negative: Disoriented to place, Disoriented to time - Lab Results Fish Bones: 11/24/23 05:25 11/24/23 05:25 Other Labs: Lab Results x24hrs 11/24/23 11/24/23 11/24/23 Range/Units 05:25 05:25 05:25 WBC 25.9 H (4.8-10.8) x10^3/uL RBC 3.52 L (4.20-5.40) 10^6/uL Hgb 7.9 L (12.0-16.0) g/dL Hct 27.2 L (37.0-47.0) % MCV 77.3 L (81.0-99.0) fL MCH 22.4 L (27.0-31.0) pg MCHC 29.0 L (32.0-36.0) g/dL RDW 18.9 H (12.0-15.0) % Plt Count 375 (130-450) 10^3/uL MPV 9.2 (7.9-10.8) fL Neut # (Auto) Not Reportable (1.5-6.6) 10^3/uL Lymph # (Auto) Not Reportable (1.5-3.5) 10^3/uL Fountain # (Auto) Not Reportable (0.0-1.0) 10^3/uL Eos # (Auto) Not Reportable (0.0-0.7) 10^3/uL Baso # (Auto) Not Reportable (0.0-0.1) 10^3/uL Absolute Nucleated RBC Not Reportable x10^3/uL Total Counted 100 Band Neuts % (Manual) 0 (0 - 10) % Abnorm Lymph % (Manual) 0 % Nucleated RBC % Not Reportable /100WBC Neutrophils # (Manual) 22.0 H (1.5-6.6) 10^3/uL Lymphocytes # (Manual) 2.3 (1.5-3.5) 10^3/uL Monocytes # (Manual) 1.6 H (0.0-1.0) 10^3/uL Eosinophils # (Manual) 0.0 (0-0.7) 10^3/uL Basophils # (Manual) 0.0 (0-0.1) 10^3/uL Differential Comment MANUAL DIFFERENTIAL Manual Slide Review Platelet Estimate NORMAL (130-450,000) (NORMAL) Platelet Morphology NORMAL APPEARANCE (NORMAL) RBC Morph Micro Appear NORMAL APPEARANCE (NORMAL) PT 29.7 H (9.9-12.6) secs INR 2.9 H (0.8-1.2) Sodium 139 (135-145) mmol/L Potassium 3.5 (3.5-4.5) mmol/L Chloride 104 (101-111) mmol/L Carbon Dioxide 28 (21-32) mmol/L Anion Gap 7.0 (6-13) BUN 25 H (6-20) mg/dL Creatinine 0.7 (0.6-1.3) mg/dL Estimated GFR (MDRD) 82 L (>89) Glucose 144 H (74-104) mg/dL Lactic Acid (0.5-2.2) mmol/L Calcium 8.1 L (8.5-10.3) mg/dL Total Bilirubin (0.2-1.0) mg/dL AST (10-42) IU/L ALT (10-60) IU/L Alkaline Phosphatase (42-121) IU/L Total Protein (6.4-8.9) g/dL Albumin (3.2-5.5) g/dL Globulin (2.1-4.2) g/dL Albumin/Globulin Ratio (1.0-2.2) Urine Color Urine Clarity (CLEAR) Urine pH (5.0-7.5) PH Ur Specific [place] (1.002-1.030) Urine Protein (NEGATIVE) mg/dL Urine Glucose (UA) (NEGATIVE) mg/dL Urine Ketones (NEGATIVE) mg/dL Urine Occult Blood (NEGATIVE) Urine Nitrite (NEGATIVE) Urine Bilirubin (NEGATIVE) Urine Urobilinogen (NORMAL) E.U./dL Ur Leukocyte Esterase (NEGATIVE) Urine RBC (0-5) /HPF Urine WBC (0-5) /HPF Ur Squamous Epith Cells (<= Few) Amorphous Sediment /LPF Urine Bacteria (None Seen) /HPF Urine Culture Comments 11/24/23 11/23/23 11/23/23 Range/Units 01:24 17:58 17:57 WBC (4.8-10.8) x10^3/uL RBC (4.20-5.40) 10^6/uL Hgb (12.0-16.0) g/dL Hct (37.0-47.0) % MCV (81.0-99.0) fL MCH (27.0-31.0) pg MCHC (32.0-36.0) g/dL RDW (12.0-15.0) % Plt Count (130-450) 10^3/uL MPV (7.9-10.8) fL Neut # (Auto) (1.5-6.6) 10^3/uL Lymph # (Auto) (1.5-3.5) 10^3/uL Fountain # (Auto) (0.0-1.0) 10^3/uL Eos # (Auto) (0.0-0.7) 10^3/uL Baso # (Auto) (0.0-0.1) 10^3/uL Absolute Nucleated RBC x10^3/uL Total Counted Band Neuts % (Manual) (0 - 10) % Abnorm Lymph % (Manual) % Nucleated RBC % /100WBC Neutrophils # (Manual) (1.5-6.6) 10^3/uL Lymphocytes # (Manual) (1.5-3.5) 10^3/uL Monocytes # (Manual) (0.0-1.0) 10^3/uL Eosinophils # (Manual) (0-0.7) 10^3/uL Basophils # (Manual) (0-0.1) 10^3/uL Differential Comment Manual Slide Review Platelet Estimate (NORMAL) Platelet Morphology (NORMAL) RBC Morph Micro Appear (NORMAL) PT (9.9-12.6) secs INR (0.8-1.2) Sodium (135-145) mmol/L Potassium (3.5-4.5) mmol/L Chloride (101-111) mmol/L Carbon Dioxide (21-32) mmol/L Anion Gap (6-13) BUN (6-20) mg/dL Creatinine (0.6-1.3) mg/dL Estimated GFR (MDRD) (>89) Glucose (74-104) mg/dL Lactic Acid 0.8 1.2 (0.5-2.2) mmol/L Calcium (8.5-10.3) mg/dL Total Bilirubin (0.2-1.0) mg/dL AST (10-42) IU/L ALT (10-60) IU/L Alkaline Phosphatase (42-121) IU/L Total Protein (6.4-8.9) g/dL Albumin (3.2-5.5) g/dL Globulin (2.1-4.2) g/dL Albumin/Globulin Ratio (1.0-2.2) Urine Color YELLOW Urine Clarity CLOUDY (CLEAR) Urine pH >=9.0 H (5.0-7.5) PH Ur Specific [place] <=1.005 (1.002-1.030) Urine Protein 100 H (NEGATIVE) mg/dL Urine Glucose (UA) NEGATIVE (NEGATIVE) mg/dL Urine Ketones NEGATIVE (NEGATIVE) mg/dL Urine Occult Blood NEGATIVE (NEGATIVE) Urine Nitrite NEGATIVE (NEGATIVE) Urine Bilirubin NEGATIVE (NEGATIVE) Urine Urobilinogen 0.2 (NORMAL) (NORMAL) E.U./dL Ur Leukocyte Esterase MODERATE H (NEGATIVE) Urine RBC 6-10 H (0-5) /HPF Urine WBC 6-10 H (0-5) /HPF Ur Squamous Epith Cells RARE Squamous (<= Few) Amorphous Sediment Moderate /LPF Urine Bacteria Rare (None Seen) /HPF Urine Culture Comments INDICATED 11/23/23 11/23/23 Range/Units 17:54 17:54 WBC 22.7 H (4.8-10.8) x10^3/uL RBC 4.33 (4.20-5.40) 10^6/uL Hgb 9.4 L (12.0-16.0) g/dL Hct 33.6 L (37.0-47.0) % MCV 77.6 L (81.0-99.0) fL MCH 21.7 L (27.0-31.0) pg MCHC 28.0 L (32.0-36.0) g/dL RDW 19.1 H (12.0-15.0) % Plt Count 525 H (130-450) 10^3/uL MPV 10.0 (7.9-10.8) fL Neut # (Auto) 20.9 H (1.5-6.6) 10^3/uL Lymph # (Auto) 0.7 L (1.5-3.5) 10^3/uL Fountain # (Auto) 0.9 (0.0-1.0) 10^3/uL Eos # (Auto) 0.0 (0.0-0.7) 10^3/uL Baso # (Auto) 0.1 (0.0-0.1) 10^3/uL Absolute Nucleated RBC 0.00 x10^3/uL Total Counted Band Neuts % (Manual) (0 - 10) % Abnorm Lymph % (Manual) % Nucleated RBC % 0.0 /100WBC Neutrophils # (Manual) (1.5-6.6) 10^3/uL Lymphocytes # (Manual) (1.5-3.5) 10^3/uL Monocytes # (Manual) (0.0-1.0) 10^3/uL Eosinophils # (Manual) (0-0.7) 10^3/uL Basophils # (Manual) (0-0.1) 10^3/uL Differential Comment Manual Slide Review Indicated Platelet Estimate INCREASED (>450,000) (NORMAL) Platelet Morphology NORMAL APPEARANCE (NORMAL) RBC Morph Micro Appear 2+ HYPOCHROMASIA (NORMAL) PT (9.9-12.6) secs INR (0.8-1.2) Sodium 138 (135-145) mmol/L Potassium 4.3 (3.5-4.5) mmol/L Chloride 97 L (101-111) mmol/L Carbon Dioxide 34 H (21-32) mmol/L Anion Gap 7.0 (6-13) BUN 32 H (6-20) mg/dL Creatinine 0.7 (0.6-1.3) mg/dL Estimated GFR (MDRD) 82 L (>89) Glucose 156 H (74-104) mg/dL Lactic Acid (0.5-2.2) mmol/L Calcium 9.0 (8.5-10.3) mg/dL Total Bilirubin 0.6 (0.2-1.0) mg/dL AST 11 (10-42) IU/L ALT 7 L (10-60) IU/L Alkaline Phosphatase 126 H (42-121) IU/L Total Protein 8.0 (6.4-8.9) g/dL Albumin 3.4 (3.2-5.5) g/dL Globulin 4.6 H (2.1-4.2) g/dL Albumin/Globulin Ratio 0.7 L (1.0-2.2) Urine Color Urine Clarity (CLEAR) Urine pH (5.0-7.5) PH Ur Specific [place] (1.002-1.030) Urine Protein (NEGATIVE) mg/dL Urine Glucose (UA) (NEGATIVE) mg/dL Urine Ketones (NEGATIVE) mg/dL Urine Occult Blood (NEGATIVE) Urine Nitrite (NEGATIVE) Urine Bilirubin (NEGATIVE) Urine Urobilinogen (NORMAL) E.U./dL Ur Leukocyte Esterase (NEGATIVE) Urine RBC (0-5) /HPF Urine WBC (0-5) /HPF Ur Squamous Epith Cells (<= Few) Amorphous Sediment /LPF Urine Bacteria (None Seen) /HPF Urine Culture Comments - Diagnostic Imaging Diagnostic Imaging Results: positive: Final report reviewed Diagnostic Imaging Comments: CXR right SC central line, cardiomegaly, mild congestion, possible bibasilar infiltrate with trace L pleural effusion CT CAP: bilateral consolidations, cannot exclude underlying pulmonary mass- short interval chest CT recommended cardiomegaly. moderate fecal burden. air in bladder with claire in place ABX Reporting Has patient been on IV antibiotics over the past 48 hours?: Yes Sepsis Event Note (H) - Evaluation Current Stage of Sepsis: Sepsis Possible source of Sepsis: positive: Pulmonary - Sepsis Criteria Sepsis Criteria: Recorded Heart Rate greater than 90 bpm, WBC count greater than 12,000 or less than 4000 Assessment/Plan - Problem List (1) Sepsis Impression: Mental status changes with hypoxia. Baseline oxygen requirement 2 L via nasal cannula, required as high as 6 L via nasal cannula to maintain sats in the 90s. Also with hypotension overnight. Lactic acid 1.2. White blood cell count rising, 22.7 at the time of admission, 25.2 about 12 hours later. Patient with history of repetitive urinary tract infections, UA showing evidence for UTI. By my reckoning she has been off the antibiotics from her last hospitalization for approximately 9 days. This was cefdinir, 300 mg twice daily for period of 7 days. She has a chronic indwelling Claire catheter which has been in place since prior to her transfer from home to [facility]. She has been bedbound for some time. Chest imaging shows bilateral pneumonia. With regards to advance care planning she has a POLST on the chart dated July 2020 [facility] which shows attempt resuscitation and selective treatment. Her POA is her son Joe. I have made telephone contact with him. He will be in to the hospital this afternoon for a visit and perhaps we can sit down and discuss her CODE STATUS with regards to her current quality of life. Qualifiers: Qualified Code(s): A41.9 - Sepsis, unspecified organism (2) UTI (urinary tract infection) Impression: Previous urinary tract infection, cultures significant for Proteus and E. coli. She was appropriately treated. Now with recurrent finding of urinary tract infection showing moderate leukocyte Estrace with culture pending. No blood cultures were drawn prior to initiation of antibiotics. Will follow urine culture. Will continue with Zosyn. Qualifiers: Urinary tract infection type: catheter-associated UTI Indwelling urinary catheter type: indwelling urethral catheter Encounter type: initial encounter Qualified Code(s): T83.511A - Infection and inflammatory reaction due to indwelling urethral catheter, initial encounter; N39.0 - Urinary tract infection, site not specified (3) Pneumonia Impression: Chest CT at the time of admission shows bilateral medial lower lobe consolidatio ns left greater than right. She has been treated empirically for healthcare associated pneumonia with vancomycin and Zosyn. She has hypoxic respiratory failure with oxygen requirements which are decreasing since initiation of treatment. Qualifiers: Pneumonia type: due to unspecified organism Laterality: bilateral Lung location: unspecified part of lung Qualified Code(s): J18.9 - Pneumonia, unspecified organism (4) Acute CHF (congestive heart failure) Impression: Chest imaging showing pulmonary congestion. She is on Lasix 20 mg a day at home. This has been resumed. She did receive IV fluids in the emergency dep artment response to her sepsis and hypotension. Her baseline oxygen requirement is 2 L via nasal cannula she did go as high as 6 L via nasal cannula during her emergency department course. Her oxygen requirement has decreased as she has been treated for her sepsis. (5) Atrial fibrillation with rapid ventricular response Impression: History of atrial fibrillation last hospitalization metoprolol 50 mg p.o. twice daily was initiated. She has been given metoprolol IV push for rate control. Will resume her home metoprolol. She is anticoagulated on Coumadin her INR is 2.9 at the time of admission. Will keep a close eye on her INR given institution of Zosyn and vancomycin .She has been given multiple doses of metoprolol today in attempt to control h eart rate. She continues to have blood pressure which is slightly low most recently 107/51.
[2023-11-24] MEDS: METOPROLOL 5 MG/5 ML VIAL IVP STA (08:13)
[2023-11-24] MEDS: PANTOPRAZOLE 40 MG TABLET PO SCH (09:45)
[2023-11-24] MEDS: WARFARIN 1 MG TABLET PO SCH ×2 (09:45→10:04)
[2023-11-24] MEDS: SOLIFENACIN SUCCINATE 5 MG TABLET PO SCH (09:45)
[2023-11-24] MEDS: DULoxetine 60 MG CAPSULE PO SCH (09:45)
[2023-11-24] MEDS: FUROSEMIDE 20 MG TABLET PO SCH (09:45)
[2023-11-24] MEDS: ACETAMINOPHEN 325 MG TABLET PO PRN (10:26)
[2023-11-24] MEDS ORDERED: VANCOMYCIN INJ 1.25 GM in SODIUM CHLORIDE 0.9% 250 ML IV SCH (12:00)
--- NOTE | 2023-11-24 12:09 | PHARMACY PROGRESS NOTE ---
- Best Possible Medication History Admit Date and Time: 11/24/23 0803 Processed by: Pharmacy Medications reviewed in ED?: No Medication History completed: Yes Patient Interview: Pt unable to participate Secondary Source(s): Facility MAR as ONLY source As the person ultimately responsible for medication therapy, providers are able to order a medication from an existing home medication list in [facility] via the "Reconcile Routine" prior to Confirmation of that medication by pc support specialist. Such practice is discouraged except when the physician, in their clinical judgment, deems that a medical need exists for a medication without regard to previous use.
[2023-11-24] MEDS: VANCOMYCIN INJ 1 GM in SODIUM CHLORIDE 0.9% 250 ML IV SCH (12:28)
[2023-11-24] MEDS ORDERED: WARFARIN 1 MG TABLET PO SCH (14:00)
[2023-11-24] MEDS: PREGABALIN 100 MG CAPSULE PO SCH (14:39)
[2023-11-24] MEDS: METOPROLOL 5 MG/5 ML VIAL IVP ONE ×2 (14:40→15:56)
[2023-11-24] MEDS: METOPROLOL SUCCINATE 25 MG TABLET PO ONE (15:55)
[2023-11-24] MEDS: diltiaZEM INJ 125 MG in DEXTROSE 5% 100 ML IV SCH (17:13)
--- NOTE | 2023-11-24 19:14 | ADVANCE CARE PLANNING NOTE ---
Advance Care Planning - Planning Encounter Date: 11/24/23 Time: 19:10 Purpose: determine care goals in light of chronic illness and bed bound status Parties in Attendance: Son Herson Acosta, Janneth Carrillo PA-C, Patient Gloria Acosta Decisional Capacity of the Patient: little insight into her situation. intermittently oriented. - Diagnosis for Encounter (1) Sepsis Qualifiers: Qualified Code(s): A41.9 - Sepsis, unspecified organism (2) UTI (urinary tract infection) Qualifiers: Urinary tract infection type: catheter-associated UTI Indwelling urinary catheter type: indwelling urethral catheter Encounter type: initial encounter Qualified Code(s): T83.511A - Infection and inflammatory reaction due to indwelling urethral catheter, initial encounter; N39.0 - Urinary tract infection, site not specified (3) Pneumonia Qualifiers: Pneumonia type: due to unspecified organism Laterality: bilateral Lung location: unspecified part of lung Qualified Code(s): J18.9 - Pneumonia, unspecified organism - Encounter Subjective/Patient's Story: Gloria was transitioned into full-time care at [facility] earlier this year. She had become bedbound prior to that and was living at home. Her son was responsible for her care and was unable to provide what she needed. She spent much time sitting in her own urine and stool and had to transition to care in a facility. She is happy at the facility. She states that what brings her shyanne in life is being able to see her family. They do visit her often. Objective/Medical Story: Gloria has had repeated episodes of sepsis over the last several months. Some of these are related to her urinary tract. We are trying to lessen these and therefore we will remove the indwelling Marquez. She has atrial fibrillation and currently with her episodes of sepsis will go into atrial fibrillation with RVR. She has had pneumonia several times recently as well. With these episodes of acute illness her mental status declines but it seems to come back with treatment. Goals of Care: Both Gloria and her son feel that if there is a chance for her to stay alive they want her to do it. They want full care given with all medical measures taken. Plan: Full code full treatment Additional Discussion: Rather long discussion regarding Gloria's quality of life which they considered to be good. Both she and her son are happy with her current environment and they feel that she has quality of life and seeing her family. Code Status: Attempt Resuscitation Time spent on advance care plannin min
[2023-11-24] MEDS ORDERED: METOPROLOL SUCCINATE 25 MG TABLET PO SCH (21:00)
[2023-11-24] MEDS: ATORVASTATIN 40 MG TABLET PO SCH (21:41)
[2023-11-24] MEDS: ARIPiprazole 5 MG TABLET PO SCH (21:41)
[2023-11-25 05:58] LABS: BASOPHILS % (AUTO) 0.2 %; EOSINOPHILS # (AUTO) 0.1 10^3/uL (0.0-0.7); EOSINOPHILS % (AUTO) 0.8 %; HCT - HEMATOCRIT 24.6 % (37.0-47.0); LYMPHOCYTES # (AUTO) 1.4 10^3/uL (1.5-3.5); LYMPHOCYTES % (AUTO) 8.7 %; MEAN CORPUSCULAR VOLUME 78.3 fL (81.0-99.0); MEAN PLATELET VOLUME 10.5 fL (7.9-10.8); MONOCYTES # (AUTO) 1.6 10^3/uL (0.0-1.0); MONOCYTES % (AUTO) 9.7 %; NEUTROPHILS # (AUTO) 12.9 10^3/uL (1.5-6.6); PLT - PLATELET COUNT 324 10^3/uL (130-450); RED BLOOD COUNT 3.14 10^6/uL (4.20-5.40); RED CELL DISTRIBUTION WIDTH 19.1 % (12.0-15.0); WHITE BLOOD COUNT 16.2 x10^3/uL (4.8-10.8)
[2023-11-25 05:59] LABS: HGB - HEMOGLOBIN 6.9 g/dL (12.0-16.0)
[2023-11-25 06:05] LABS: INR 4.5 (0.8-1.2)
[2023-11-25 06:35] LABS: BASOPHILS % (AUTO) 0.3 %; EOSINOPHILS # (AUTO) 0.1 10^3/uL (0.0-0.7); EOSINOPHILS % (AUTO) 0.9 %; HCT - HEMATOCRIT 25.2 % (37.0-47.0); LYMPHOCYTES # (AUTO) 1.5 10^3/uL (1.5-3.5); LYMPHOCYTES % (AUTO) 9.6 %; MEAN CORPUSCULAR HEMOGLOBIN 21.9 pg (27.0-31.0); MEAN CORPUSCULAR HGB CONC 27.8 g/dL (32.0-36.0); MEAN PLATELET VOLUME 10.2 fL (7.9-10.8); MONOCYTES # (AUTO) 1.6 10^3/uL (0.0-1.0); MONOCYTES % (AUTO) 9.8 %; NEUTROPHILS # (AUTO) 12.5 10^3/uL (1.5-6.6); NEUTROPHILS % (AUTO) 78.9 %; PLT - PLATELET COUNT 327 10^3/uL (130-450); RED BLOOD COUNT 3.19 10^6/uL (4.20-5.40); WHITE BLOOD COUNT 15.9 x10^3/uL (4.8-10.8)
[2023-11-25 06:56] LABS: DIFFERENTIAL COMMENT MANUAL=AUTO DIFF; PLATELET ESTIMATE, MANUAL NORMAL (130-450,000) (NORMAL); RBC MORPHOLOGY (MULTIPLE) 1+ HYPOCHROMASIA (NORMAL)
[2023-11-25 06:57] LABS: DIFFERENTIAL COMMENT MANUAL=AUTO DIFF; PLATELET ESTIMATE, MANUAL NORMAL (130-450,000) (NORMAL); RBC MORPHOLOGY (MULTIPLE) 1+ HYPOCHROMASIA (NORMAL)
[2023-11-25 07:09] LABS: CALCIUM 8.2 mg/dL (8.5-10.3); CREATININE 0.7 mg/dL (0.6-1.3); POTASSIUM 3.3 mmol/L (3.5-4.5)
--- NOTE | 2023-11-25 07:39 | PROVIDER PROGRESS NOTE ---
Subjective - Prog Note Date Prog Note Date: 11/25/23 Prog Note Time: 07:36 - Subjective Pt reports feeling: Improved Subjective: She does not recognize or remember that she felt poorly yesterday, but feels good today. She does not have complaints. She does not want to move. has chronic right shoulder pain. got meds for this this AM. helped some. Current Medications - Current Medications Current Medications: Medications Diltiazem HCl 125 mg/ Dextrose 125 mls @ 5 mls/hr IV .Q25H [facility]; Protocol Last Admin: 11/25/23 01:55 Dose: 10 mls/hr, 10 mg/hr Acetaminophen (Acetaminophen 325 Mg Tablet) 650 mg PO Q6H PRN PRN Reason: PRN PAIN &/OR FEVER Last Admin: 11/24/23 10:26 Dose: 650 mg Aripiprazole (Aripiprazole 5 Mg Tablet) 10 mg PO QPM [facility] Last Admin: 11/24/23 21:41 Dose: 10 mg Atorvastatin Calcium (Atorvastatin 40 Mg Tablet) 80 mg PO QPM [facility] Last Admin: 11/24/23 21:41 Dose: 80 mg Duloxetine HCl (Duloxetine 60 Mg Capsule) 60 mg PO DAILY [facility] Last Admin: 11/24/23 09:45 Dose: 60 mg Furosemide (Furosemide 20 Mg Tablet) 20 mg PO DAILY [facility] Last Admin: 11/24/23 09:45 Dose: 20 mg Insulin Human Lispro (Insulin Lispro 300 Unit/3 Ml Pen) 1 - 5 unit SUBQ 0800,1200,1700,2100 [facility]; Protocol Pantoprazole Sodium (Pantoprazole 40 Mg Tablet) 40 mg PO BID [facility] Last Admin: 11/24/23 21:41 Dose: 40 mg Piperacillin Sod/Tazobactam (Sod 3.375 gm/ Sodium Chloride) 100 mls @ 25 mls/hr IV Q8H [facility] Last Admin: 11/25/23 05:41 Dose: Not Given Pregabalin (Pregabalin 100 Mg Capsule) 100 mg PO TID [facility] Last Admin: 11/25/23 06:00 Dose: 100 mg Solifenacin (Solifenacin Succinate 5 Mg Tablet) 5 mg PO DAILY [facility] Last Admin: 11/24/23 09:45 Dose: 5 mg Vancomycin HCl 1 gm/ Sodium (Chloride) 250 mls @ 167 mls/hr IV Q12H [facility] Last Admin: 11/25/23 06:00 Dose: Infused Warfarin Sodium (Warfarin 1 Mg Tablet) 2 mg PO SUTUWETHSA [facility] Last Admin: 11/24/23 09:45 Dose: 2 mg Warfarin Sodium (Warfarin 1 Mg Tablet) 1 mg PO MOFR [facility] Last Admin: 11/24/23 10:04 Dose: 1 mg Objective - Vital Signs/Intake & Output Vital Signs: Vital Signs Temp Pulse Resp BP Pulse Ox O2 Flow Rate 11/25/23 07:00 70 21 110/47 L 98 1 11/25/23 06:00 37.4 C 70 20 113/46 L 96 1 11/25/23 05:00 70 23 115/48 L 97 1 11/25/23 04:00 70 23 111/43 L 95 1 Intake & Output: Intake & Output 11/22/23 11/23/23 11/24/23 11/25/23 23:59 23:59 23:59 23:59 Intake Total 2600 2612.250 273.333 Output Total 1090 40 Balance 2600 1522.250 233.333 - Objective General Appearance: positive: No acute distress Eyes Bilateral: positive: Normal inspection ENT: positive: ENT inspection nml Neck: positive: Nml inspection Respiratory: positive: Chest non-tender, No respiratory distress, Other (decre ased breath sounds at the bases. IS= 250cc) Cardiovascular: positive: Irregularly irregular (on monitor, a fib. rate 70-80, much improved from 130's yesterday.) Abdomen: positive: No distention Skin: positive: Color nml Extremities: positive: No pedal edema Neurologic/Psychiatric: positive: Other (orientation is intermittent.) - Lab Results Fish Bones: 11/25/23 06:26 11/25/23 04:34 Other Labs: Lab Results x24hrs 11/25/23 11/25/23 11/25/23 Range/Units 06:26 04:34 04:34 WBC 15.9 H (4.8-10.8) x10^3/uL RBC 3.19 L (4.20-5.40) 10^6/uL Hgb 7.0 L* (12.0-16.0) g/dL Hct 25.2 L (37.0-47.0) % MCV 79.0 L (81.0-99.0) fL MCH 21.9 L (27.0-31.0) pg MCHC 27.8 L (32.0-36.0) g/dL RDW 19.0 H (12.0-15.0) % Plt Count 327 (130-450) 10^3/uL MPV 10.2 (7.9-10.8) fL Neut # (Auto) 12.5 H (1.5-6.6) 10^3/uL Lymph # (Auto) 1.5 (1.5-3.5) 10^3/uL [place] # (Auto) 1.6 H (0.0-1.0) 10^3/uL Eos # (Auto) 0.1 (0.0-0.7) 10^3/uL Baso # (Auto) 0.0 (0.0-0.1) 10^3/uL Absolute Nucleated RBC 0.00 x10^3/uL Band Neuts % (Manual) Not Reportable Abnorm Lymph % (Manual) Not Reportable Nucleated RBC % 0.0 /100WBC Neutrophils # (Manual) Not Reportable Lymphocytes # (Manual) Not Reportable Monocytes # (Manual) Not Reportable Eosinophils # (Manual) Not Reportable Basophils # (Manual) Not Reportable Differential Comment MANUAL=AUTO DIFF Platelet Estimate NORMAL (130-450,000) (NORMAL) RBC Morph Micro Appear 1+ HYPOCHROMASIA (NORMAL) PT 45.0 H (9.9-12.6) secs INR 4.5 H* (0.8-1.2) Sodium 141 (135-145) mmol/L Potassium 3.3 L (3.5-4.5) mmol/L Chloride 107 (101-111) mmol/L Carbon Dioxide 28 (21-32) mmol/L Anion Gap 6.0 (6-13) BUN 27 H (6-20) mg/dL Creatinine 0.7 (0.6-1.3) mg/dL Estimated GFR (MDRD) 82 L (>89) Glucose 140 H (74-104) mg/dL Calcium 8.2 L (8.5-10.3) mg/dL Nasal Screen MRSA (PCR) (NEGATIVE) 11/25/23 11/24/23 Range/Units 04:34 13:40 WBC 16.2 H (4.8-10.8) x10^3/uL RBC 3.14 L (4.20-5.40) 10^6/uL Hgb 6.9 L* (12.0-16.0) g/dL Hct 24.6 L (37.0-47.0) % MCV 78.3 L (81.0-99.0) fL MCH 22.0 L (27.0-31.0) pg MCHC 28.0 L (32.0-36.0) g/dL RDW 19.1 H (12.0-15.0) % Plt Count 324 (130-450) 10^3/uL MPV 10.5 (7.9-10.8) fL Neut # (Auto) 12.9 H (1.5-6.6) 10^3/uL Lymph # (Auto) 1.4 L (1.5-3.5) 10^3/uL [place] # (Auto) 1.6 H (0.0-1.0) 10^3/uL Eos # (Auto) 0.1 (0.0-0.7) 10^3/uL Baso # (Auto) 0.0 (0.0-0.1) 10^3/uL Absolute Nucleated RBC 0.00 x10^3/uL Band Neuts % (Manual) Not Reportable Abnorm Lymph % (Manual) Not Reportable Nucleated RBC % 0.0 /100WBC Neutrophils # (Manual) Not Reportable Lymphocytes # (Manual) Not Reportable Monocytes # (Manual) Not Reportable Eosinophils # (Manual) Not Reportable Basophils # (Manual) Not Reportable Differential Comment MANUAL=AUTO DIFF Platelet Estimate NORMAL (130-450,000) (NORMAL) RBC Morph Micro Appear 1+ HYPOCHROMASIA (NORMAL) PT (9.9-12.6) secs INR (0.8-1.2) Sodium (135-145) mmol/L Potassium (3.5-4.5) mmol/L Chloride (101-111) mmol/L Carbon Dioxide (21-32) mmol/L Anion Gap (6-13) BUN (6-20) mg/dL Creatinine (0.6-1.3) mg/dL Estimated GFR (MDRD) (>89) Glucose (74-104) mg/dL Calcium (8.5-10.3) mg/dL Nasal Screen MRSA (PCR) NEGATIVE (NEGATIVE) Sepsis Event Note (H) - Evaluation Current Stage of Sepsis: Sepsis Possible source of Sepsis: positive: Pulmonary - Sepsis Criteria Sepsis Criteria: Recorded Heart Rate greater than 90 bpm, WBC count greater than 12,000 or less than 4000 Assessment/Plan - Problem List (1) Sepsis Impression: Selected Entries 11/25/23 11/25/23 11/25/23 10:00 11:00 11:55 Blood Pressure 123/54 L 115/53 L 116/53 L [Left Brachial artery] 11/25/23 11/25/23 12:00 12:10 Blood Pressure 110/68 110/68 [Left Brachial artery] Mental status changes with hypoxia. Baseline oxygen requirement 2 L via nasal cannula, required as high as 6 L via nasal cannula to maintain sats in the 90s. Also with hypotension, resolving. She is down to baseline O2 requirement. . Patient with history of repetitive urinary tract infections, UA showing evidence for UTI. By my reckoning she has been off the antibiotics from her last hospitalization for approximately 9 days prior to recurrence. This was cefdinir, 300 mg twice daily for period of 7 days. She has a chronic indwelling Marquez catheter which has been in place since prior to her transfer from home to [facility]. She has been bedbound for some time. Indication for Marquez is incontinence in the setting of not being able to keep clean at home. She has better care at this time. I will remove the Marquez catheter Chest imaging shows bilateral pneumonia. Carefully reviewed reports, as I would prefer to treat the Enterococcus with vancomycin, as the Zosyn has caused INR el evation. However, it appears that she will also need PNA treatment, will treat for 5 days. With regards to advance care planning she has a POLST on the chart dated July 2020 which shows attempt resuscitation and selective treatment. Her POA is her son Herson. Please see advance care planning discussion from yesterday afternoon. Qualifiers: Qualified Code(s): A41.9 - Sepsis, unspecified organism (2) UTI (urinary tract infection) Impression: Previous urinary tract infection, cultures significant for Proteus and E. coli. She was appropriately treated. Now with recurrent finding of urinary tract infection showing moderate leukocyte Estrace with culture Significant for Enterococcus, sensitivities are pending. We will continue vancomycin until sensitivities are back as this will likely not interfere with her warfarin.. No blood cultures were drawn prior to initiation of antibiotics. .Once again I will remove the Marquez catheter, which has been indwelling for a period of months, today. Qualifiers: Urinary tract infection type: catheter-associated UTI Indwelling urinary catheter type: indwelling urethral catheter Encounter type: initial encounter Qualified Code(s): T83.511A - Infection and inflammatory reaction due to indwelling urethral catheter, initial encounter; N39.0 - Urinary tract infecti on, site not specified (3) Pneumonia Impression: Bibasilar pneumonia seen on chest imaging at the time of admission. Her inspiratory effort at baseline is poor. She can get up to 250 cc on the incentive spirometer. Findings on the chest CT are described as bilateral medial lower lobe consolidations more pronounced on the left representing a combination of atelectasis and pneumonia/aspiration. She will need appropriate antibiotic coverage for pneumonia. Therefore will need to treat with Zosyn in addition to Vancomycin. I have re-ordered Zosyn. Qualifiers: Pneumonia type: due to unspecified organism Laterality: bilateral Lung location: unspecified part of lung Qualified Code(s): J18.9 - Pneumonia, unspecified organism (4) Acute CHF (congestive heart failure) Impression: Chest imaging showing pulmonary congestion. She is on Lasix 20 mg a day at home. This has been resumed. She did receive IV fluids in the emergency department response to her sepsis and hypotension. Her baseline oxygen requirement is 2 L via nasal cannula she did go as high as 6 L via nasal cannula during her emergency department course. Her oxygen requirement has decreased as she has been treated for her sepsis.She is at her baseline oxygen requirement. Most recent echocardiogram dated 11/08/2023 shows ejection fraction of 40 to 45% with mild global hypokinesis of left ventricular contractility. RV systolic function is normal mild aortic regurgitation (5) Atrial fibrillation with rapid ventricular response Impression: has done well on the Diltiazem drip overnight. Her heart rate is in the 70s and 80s. She is showing sinus rhythm on the monitor. She is on 10 mcg/h. I have ordered oral diltiazem 180 mg a day. Will give this and titrate the drip off today. I anticipate discontinuing her metoprolol and discharging her to the outpatient environment on oral diltiazem. (6) Hyperglycemia Impression: Hemoglobin A1c 6.3% on 11/05/2023. This is in the range of prediabetic. Here in the hospital she has had some elevated blood glucoses and we are treating with a low-dose sliding scale insulin. These are perhaps reactive to her infection. I anticipate improvement of these with treatment of her infection. I have changed her diet to limit her carbohydrate choices. (7) Supratherapeutic INR Impression: Laboratory Tests 11/24/23 11/25/23 05:25 04:34 INR 2.9 H 4.5 H* INR was within goal range at admission. This morning her INR is 4.5. With her hemoglobin drop I have given her vitamin K this morning orally. This is likely due to interaction with antibiotic Unfortunately with her pneumonia we will need to consider Zosyn. I am holding warfarin. I have given her 5 mg of vitamin K orally this morning. There is no active bleeding although there is a drop in hemoglobin.. (8) Low hemoglobin Impression: Laboratory Tests 11/23/23 11/24/23 11/25/23 17:54 05:25 04:34 Hgb 9.4 L 7.9 L 6.9 L* 11/25/23 06:26 Hgb 7.0 L* Hemoglobin was acceptable on admission however she has had a steady drop. She has not had any melena, she has not had any bright red blood per rectum; she is not having any abdominal pain or chest pain. She has not had any falls or trauma. However, given her atrial fibrillation and hypotension with sepsis, (which has improved), I feel that she should get transfused 1 unit of red cells this morning. This was ordered.
[2023-11-25] MEDS: INSULIN LISPRO 300 UNIT/3 ML PEN SUBQ SCH (08:12)
[2023-11-25] MEDS: PHYTONADIONE 10 MG/ML AMP PO ONE (08:20)
[2023-11-25] MEDS: CHERRY SYRUP 10 ML UDC PO ONE (08:32)
[2023-11-25] MEDS: diltiaZEM CD 180 MG CAPSULE PO SCH (11:29)
[2023-11-25] MEDS ORDERED: PIPERACILLIN/TAZOBACTAM 3.375 GM in SODIUM CHLORIDE 0.9% MINIBAG 100 ML IV SCH (13:00)
[2023-11-25] MEDS: PIPERACILLIN/TAZOBACTAM 3.375 GM in SODIUM CHLORIDE 0.9% MINIBAG 100 ML IV SCH (14:33)
[2023-11-25] MEDS: SODIUM CHLORIDE FLUSH 0.9% 10 ML SYRINGE IVP PRN (18:39)
[2023-11-26 05:01] LABS: BASOPHILS % (AUTO) 0.3 %; EOSINOPHILS # (AUTO) 0.3 10^3/uL (0.0-0.7); EOSINOPHILS % (AUTO) 2.3 %; HGB - HEMOGLOBIN 8.4 g/dL (12.0-16.0); LYMPHOCYTES # (AUTO) 1.4 10^3/uL (1.5-3.5); LYMPHOCYTES % (AUTO) 10.2 %; MEAN CORPUSCULAR HEMOGLOBIN 23.3 pg (27.0-31.0); MEAN CORPUSCULAR VOLUME 80.6 fL (81.0-99.0); MEAN PLATELET VOLUME 10.5 fL (7.9-10.8); MONOCYTES # (AUTO) 1.2 10^3/uL (0.0-1.0); NEUTROPHILS # (AUTO) 10.4 10^3/uL (1.5-6.6); NEUTROPHILS % (AUTO) 77.8 %; PLT - PLATELET COUNT 316 10^3/uL (130-450); RED CELL DISTRIBUTION WIDTH 18.8 % (12.0-15.0); WHITE BLOOD COUNT 13.3 x10^3/uL (4.8-10.8)
[2023-11-26 05:05] LABS: INR 2.1 (0.8-1.2); PT - PROTHROMBIN TIME 21.6 secs (9.9-12.6)
[2023-11-26 05:11] LABS: CALCIUM 8.6 mg/dL (8.5-10.3); CREATININE 0.7 mg/dL (0.6-1.3); POTASSIUM 3.3 mmol/L (3.5-4.5)
--- NOTE | 2023-11-26 12:34 | Discharge Plan ---
Discharge Plan Problem Reviewed?: Yes Disposition: [facility] DC/Xfer Condition: Good Prescriptions: Amox/Clav 875/125 [Augmentin 875/125 Tab] 1 tablet PO Q12H 5 Days #10 tablet diltiaZEM CD [Cardizem Cd] 180 mg PO DAILY #30 cap Diet: Cardiac Activity Restrictions: No Restrictions Shower Restrictions: No Driving Restrictions: Yes Assistance Devices: Other (bed bound) Health Concerns: Came to the ED with chief complaints of mental status changes and tachycardia via EMS. Had a mild cough. She became hypotensive down to 85/44 responded to fluid bolus central line was placed in the ED for possible pressors, however with administration of antibiotics and fluids her blood pressure improved. She has had an indwelling Marquez catheter for some time. This was initially placed at home when hygiene was a future concern. She is since transitioned to [facility] for permanent placement and is able to get adequate care there. Catheter was removed this hospitalization and she has been incontinent of urine. Imaging on admission did show bilateral basilar pneumonia. She is being treated for this. On admission her O2 requirement was as high as 6 L via nasal cannula to maintain sats in the 90s. Her lactic acid was normal. Her oxygen requirement is back down to her baseline of 2 L via nasal cannula. Urine culture shows Enterococcus. Blood culture shows no growth after 2 days. Her WBC count genny as high as 25.9 on the day of discharge it is trending downward and is 13.3. For her pneumonia and urinary tract infection she was treated with Zosyn and vancomycin while inpatient. She has a history of atrial fibrillation and had rapid ventricular response at her last hospitalization which was late in October of this year. She had been transition back to her care facility on metoprolol 50 mg twice daily. Unfortunately she developed atrial fibrillation with rapid ventricular response refractory to metoprolol. She was transition to the ICU and placed on a diltiazem drip with good rate control. Therefore her oral metoprolol was stopped and she will be sent back to [facility] on 180 mg of diltiazem CD a day. She is anticoagulated on warfarin. Her INR was 2.9 at the time of admission. After antibiotic therapy her INR genny to 4.5. She was given 5 mg of vitamin K orally on 11/24. At this point she did have a drop in her hemoglobin from 9.4 on admission to 6.9. Given her fragile medical status we did elect to transfuse 1 unit of packed red blood cells. Her hemoglobin genny to 8.4 from 7.0 with 1 unit of red cells. Her INR on the date of discharge is 2.1. I would recommend resumption of Coumadin at her previous dosing. I would recommend frequent checks of INR while she is on Augmentin. She was discharged back to her facility on 5 additional days of Augmentin. Advance care planning discussion was held with patient and her son. Please see this note for further details. She and her son elect to be full code with selective treatment. Plan of Treatment: Augmentin to complete a course of 7 days of antibiotics Careful monitoring of INR Resumption of home Coumadin dosing Change from metoprolol 50 mg twice daily to Cardizem CD 180 daily Care Goals: She enjoys seeing her family and would like to continue to live in her bedbound state. No Smoking: If you smoke, Please STOP! Call for help. Follow-up with: OWEN REILLY MD [Physician No Access] -
--- NOTE | 2023-11-26 12:50 | DISCHARGE SUMMARY ---
"Discharge Summary Admit Date: 11/23/23 Discharge Date: 11/26/23 Condition at Discharge: Good Discharge Disposition: SNF DC/Xfer - DIAGNOSES Admission Diagnoses: Sepsis Bilateral lower lobe pneumonia Recurrent urinary tract infection Acute on chronic heart failure with reduced ejection fraction Tachycardia, atrial for with RVR, on chronic anticoagulation Chronic pain - HPI History of Present Illness: From Telehealth admission H&P: Ms Acosta is a 72 yo F with history of paroxysmal A fib on Coumadin, HTN, HFrEF (last echo October 2023 with EF 40-45%), dementia, resides at assisted living facility. Presents with altered mental status, unclear her baseline however per ER staff report patient was noted to be more drowsy than usual. Difficult to obtain history via tele-monitor, patient is hard of hearing, RN at bedside to assist. Patient is able to tell me her full name, she thinks we are at [facility] (where she resides). Not oriented to time. Patient reports she is having pain in her shoulders, although medication reconciliation lists [place] patient reports she does not take, will try Tylenol. She denies cp, palpitations, sob, cough. Denies fevers, reports chills. She states that she coughs/chokes on food. She is not sure why she is the hospital, reports she had a fall where her feet gave out, but that was [address] chest shows bilateral lower lobe consolidations, patient was initially on 6 L NC, now on 3 L NC. Lactic 1.2 She remains tachycardic in 130s (sinus) despite 2 L IV fluids, blood pressure stable systolic 110s. Patient was recently admitted to [facility] 11/04-11/07 for septic shock secondary to proteus and E coli UTI, pneumonia, acute hypoxic respiratory failure, A fib RVR. POLST form indicates full code with limited interventions (per ER provider review of records from facility). - CONSULTS | PROCEDURES Consultations: none Procedures: CXR - ALLERGIES Allergies/Adverse Reactions: Allergies Allergy/AdvReac Type Severity Reaction Status Date / Time clindamycin Allergy Unknown Verified 11/23/23 17:34 phenobarbital Allergy Hives Verified 11/23/23 17:34 morphine AdvReac Intermediate Hallucinati Verified 11/23/23 17:34 ons doxycycline AdvReac Nausea Verified 11/23/23 17:34 - MEDICATIONS Home Medications: Ambulatory Orders Medication Instructions Recorded Confirmed Duloxetine HCl [Cymbalta] 60 mg PO DAILY 07/19/20 11/24/23 Solifenacin Succinate [Vesicare] 5 mg PO DAILY 07/19/20 11/24/23 Acetaminophen [Tylenol] 650 mg PO Q6H PRN 11/05/23 11/24/23 Pregabalin [Lyrica] 100 mg PO TID 11/05/23 11/24/23 ARIPiprazole [Abilify] 10 mg PO QPM #20 tab 11/08/23 11/24/23 Atorvastatin Calcium [Lipitor] 80 mg PO QPM #30 tab 11/08/23 11/24/23 Cetirizine HCl [Allergy Relief] 5 mg PO DAILY #0 11/08/23 11/24/23 Furosemide [Lasix] 20 mg PO DAILY #30 tab 11/08/23 11/24/23 HYDROcod/ACETAM 5/325 [[place] 5/325] 0.5 ea PO TID #0 tab 11/08/23 11/24/23 Pantoprazole [Protonix] 40 mg PO BID #0 11/08/23 11/24/23 Warfarin [Coumadin] 1 mg PO MOFR #0 11/08/23 11/24/23 Warfarin [Coumadin] 2 mg PO SUTUWETHSA #0 11/08/23 11/24/23 Bisacodyl Supp [Dulcolax Supp] 1 supp OK DAILY PRN 11/24/23 11/24/23 Mineral Oil [Mineral Oil Enema] 1 each OK DAILY PRN 11/24/23 11/24/23 Nystatin [Klayesta] 1 each TOP BID 11/24/23 11/24/23 Potassium Chloride [Micro-K] 10 meq PO Q48H 11/24/23 11/24/23 Senna [Senokot] 17.2 mg PO DAILY PRN 11/24/23 11/24/23 Tizanidine HCl 2 mg PO Q12H PRN 11/24/23 11/24/23 polyethylene glycoL 3350 [Miralax] 17 g PO DAILY PRN 11/24/23 11/24/23 Amox/Clav 875/125 [Augmentin 1 tablet PO Q12H 5 Days #10 tablet 11/26/23 875/125 Tab] diltiaZEM CD [Cardizem Cd] 180 mg PO DAILY #30 cap 11/26/23 - LABS Result Diagrams: 11/26/23 04:40 11/26/23 04:40 - SEPSIS Current Stage of Sepsis: Sepsis Possible source of Sepsis: Pulmonary Sepsis Criteria: Recorded Heart Rate greater than 90 bpm, WBC count greater than 12,000 or less than 4000"
[2023-11-26 14:02] VITALS: BP 148/60; O2SAT 96
--- NOTE | 2023-11-26 14:30 | DISCHARGE SUMMARY ---
"Discharge Summary Admit Date: 11/23/23 Discharge Date: 11/26/23 Discharging Provider: Janneth Carrillo PA-C Primary Care Provider: Akbar Camacho Code Status: Attempt Resuscitation Condition at Discharge: Good Discharge Disposition: SNF DC/Xfer Discharge Facility [facility]: [facility] - DIAGNOSES Admission Diagnoses: Sepsis Bilateral lower lobe pneumonia Recurrent urinary tract infection Acute on chronic heart failure with reduced ejection fraction Tachycardia, atrial fibs with RVR, on chronic anticoagulation Chronic pain Discharge Diagnoses with Status of Each Condition: (1) Sepsis Impression: Mental status changes with hypoxia. Baseline oxygen requirement 2 L via nasal cannula, required as high as 6 L via nasal cannula to maintain sats in the 90s. Also with hypotension, resolved with treatment of her infection. She is down to baseline O2 requirement. . Patient with history of repetitive urinary tract infections, UA showing evidence for UTI. By my reckoning she has been off the antibiotics from her last hospitalization for approximately 9 days prior to recurrence. This was cefdinir, 300 mg twice daily for period of 7 days. She had a chronic indwelling Marquez catheter which had been in place since prior to her transfer from home to [facility]. She has been bedbound for some time. Indication for Marquez is incontinence in the setting of not being able to keep clean at home. She has better care at this time. Marquez was removed and she was incontinent, but voiding normally. Chest imaging shows bilateral pneumonia. She was treated with Zosyn and Vanc, de escalated to Augmentin on discharge With regards to advance care planning she has a POLST on the chart dated July 2020 which shows attempt resuscitation and selective treatment. Her POA is her son Herson. Please see advance care planning discussion documented separately (2) UTI (urinary tract infection) Impression: Previous urinary tract infection, cultures significant for Proteus and E. coli. She was appropriately treated. Now with recurrent finding of urinary tract infection showing moderate leukocyte Estrace with culture significant for Enterococcus, sensitive to ampicillin. I am treating with Augmentin to also cover her pneumonia. Chronic indwelling Marquez was removed. Qualifiers: Urinary tract infection type: catheter-associated UTI Indwelling urinary ca theter type: indwelling urethral catheter Encounter type: initial encounter Qualified Code(s): T83.511A - Infection and inflammatory reaction due to indwelling urethral catheter, initial encounter; N39.0 - Urinary tract infection, site not specified (3) Pneumonia Impression: Bibasilar pneumonia seen on chest imaging at the time of admission. Her inspiratory effort at baseline is poor. She can get up to 250 cc on the incentive spirometer. Findings on the chest CT are described as bilateral medial lower lobe consolidations more pronounced on the left representing a combination of atelectasis and pneumonia/aspiration. She will need appropriate antibiotic coverage for pneumonia. She was treated with vancomycin and Zosyn as inpatient for healthcare associated pneumonia. De-escalated to Augmentin on discharge. Qualifiers: Pneumonia type: due to unspecified organism Laterality: bilateral Lung location: unspecified part of lung Qualified Code(s): J18.9 - Pneumonia, uns pecified organism (4) Acute CHF (congestive heart failure) Impression: Chest imaging showing pulmonary congestion. She is on Lasix 20 mg a day at home. This has been resumed. She did receive IV fluids in the emergency department response to her sepsis and hypotension. Her baseline oxygen requirement is 2 L via nasal cannula she did go as high as 6 L via nasal cannula during her emergency department course. Her oxygen requirement has decreased as she has been treated for her sepsis.She is at her baseline oxygen requirement. Most recent echocardiogram dated 11/08/2023 shows ejection fraction of 40 to 45% with mild global hypokinesis of left ventricular contractility. RV systolic function is normal mild aortic regurgitation (5) Atrial fibrillation with rapid ventricular response Impression: Excellent rate control with diltiazem drip at 10 mics per hour in the intensive care unit. De-escalated to diltiazem CD180 mg/day; on this she maintained rate control for 24 hours. I anticipate discontinuing her metoprolol and discharging her to the outpatient environment on oral diltiazem. (6) Hyperglycemia Impression: Hemoglobin A1c 6.3% on 11/05/2023. This is in the range of prediabetic. Treated here in the hospital with a carb controlled diet and sliding scale insulin (7) Supratherapeutic INR Impression: Laboratory Tests 11/24/23 11/25/23 11/26/23 05:25 04:34 04:40 INR 2.9 H 4.5 H* 2.1 H INR was within goal range at admission. In response to elevation she was given 5 mg of vitamin K orally and her warfarin was held. Will need close monitoring on resumption as she will be on antibiotics for a period of days. (8) Low hemoglobin Impression: Laboratory Tests 11/23/23 11/24/23 11/25/23 17:54 05:25 04:34 Hgb 9.4 L 7.9 L 6.9 L* 11/25/23 11/26/23 06:26 04:40 Hgb 7.0 L* 8.4 L Hemoglobin was acceptable on admission however she has had a steady drop. She has not had any melena, she has not had any bright red blood per rectum; she is not having any abdominal pain or chest pain. She has not had any falls or trauma. However, given her atrial fibrillation and hypotension with sepsis, (which has improved), She was transfused 1 unit of red cells in response to hemoglobin of 7.0. Responded appropriately to 8.4. She had symptomatic improvement. - HPI History of Present Illness: From admission H&P: Ms Acosta is a 72 yo F with history of paroxysmal A fib on Coumadin, HTN, HFrEF (last echo October 2023 with EF 40-45%), dementia, resides at assisted living facility. Presents with altered mental status, unclear her baseline however per ER staff report patient was noted to be more drowsy than usual. Difficult to obtain history via tele-monitor, patient is hard of hearing, RN at bedside to assist. Patient is able to tell me her full name, she thinks we are at [facility] (where she resides). Not oriented to time. Patient reports she is pardo ving pain in her shoulders, although medication reconciliation lists Elvaston patient reports she does not take, will try Tylenol. She denies cp, palpitations, sob, cough. Denies fevers, reports chills. She states that she coughs/chokes on food. She is not sure why she is the hospital, reports she had a fall where her feet gave out, but that was [address] chest shows bilateral lower lobe consolidations, patient was initially on 6 L NC, now on 3 L NC. Lactic 1.2 She remains tachycardic in 130s (sinus) despite 2 L IV fluids, blood pressure stable systolic 110s. Patient was recently admitted to [facility] 11/04-11/07 for septic shock secondary to proteus and E coli UTI, pneumonia, acute hypoxic respiratory failure, A fib RVR. POLST form indicates full code with limited interventions (per ER provider review of records from facility). - CONSULTS | PROCEDURES Consultations: none Procedures: admission CXR: Cardiomegaly and mild congestion. Suggestion of scattered infiltrates/atelectasis in bilateral lung anthony.. Trace left pleural effusion no pneumothorax admission chest CT :Bilateral medial lower lobe consolidations left greater than right. Underlying pulmonary mass cannot be completed excluded. Short interval follow- up is recommended. CT abdomen pelvis: Moderate fecal burden No acute abnormalities - HOSPITAL COURSE Hospital Course: Admitted with acute sepsis with hypotension and increasing oxygen requirements in addition to mental status changes. Source of infection was determined to be lungs and urinary tract infection. She was treated with appropriate antibiotics. Her chronic indwelling Marquez was removed. She tolerated this well. Her INR did rise to 4.5 with resultant hemoglobin drop. She there was no source of bleeding identified. She was given vitamin K, her warfarin was held and she was also transfused 1 unit of packed red blood cells. She responded appropriately. Her heart rate became elevated and she was transferred to the intensive care unit for treatment of her A-fib with RVR with a diltiazem drip. She responded appropriately was transitioned onto oral diltiazem which she tolerated well. Advance care planning discussion was held with her son who affirms her full code selective treatment status. She was transferred in stable condition to [facility]dc facility - ALLERGIES Allergies/Adverse Reactions: Allergies Allergy/AdvReac Type Severity Reaction Status Date / Time clindamycin Allergy Unknown Verified 11/23/23 17:34 phenobarbital Allergy Hives Verified 11/23/23 17:34 morphine AdvReac Intermediate Hallucinati Verified 11/23/23 17:34 ons doxycycline AdvReac Nausea Verified 11/23/23 17:34 - MEDICATIONS Home Medications: Ambulatory Orders Medication Instructions Recorded Confirmed Duloxetine HCl [Cymbalta] 60 mg PO DAILY 07/19/20 11/24/23 Solifenacin Succinate [Vesicare] 5 mg PO DAILY 07/19/20 11/24/23 Acetaminophen [Tylenol] 650 mg PO Q6H PRN 11/05/23 11/24/23 Pregabalin [Lyrica] 100 mg PO TID 11/05/23 11/24/23 ARIPiprazole [Abilify] 10 mg PO QPM #20 tab 11/08/23 11/24/23 Atorvastatin Calcium [Lipitor] 80 mg PO QPM #30 tab 11/08/23 11/24/23 Cetirizine HCl [Allergy Relief] 5 mg PO DAILY #0 11/08/23 11/24/23 Furosemide [Lasix] 20 mg PO DAILY #30 tab 11/08/23 11/24/23 HYDROcod/ACETAM 5/325 [[place] 5/325] 0.5 ea PO TID #0 tab 11/08/23 11/24/23 Pantoprazole [Protonix] 40 mg PO BID #0 11/08/23 11/24/23 Warfarin [Coumadin] 1 mg PO MOFR #0 11/08/23 11/24/23 Warfarin [Coumadin] 2 mg PO SUTUWETHSA #0 11/08/23 11/24/23 Bisacodyl Supp [Dulcolax Supp] 1 supp TX DAILY PRN 11/24/23 11/24/23 Mineral Oil [Mineral Oil Enema] 1 each TX DAILY PRN 11/24/23 11/24/23 Nystatin [Klayesta] 1 each TOP BID 11/24/23 11/24/23 Potassium Chloride [Micro-K] 10 meq PO Q48H 11/24/23 11/24/23 Senna [Senokot] 17.2 mg PO DAILY PRN 11/24/23 11/24/23 Tizanidine HCl 2 mg PO Q12H PRN 11/24/23 11/24/23 polyethylene glycoL 3350 [Miralax] 17 g PO DAILY PRN 11/24/23 11/24/23 Amox/Clav 875/125 [Augmentin 1 tablet PO Q12H 5 Days #10 tablet 11/26/23 875/125 Tab] diltiaZEM CD [Cardizem Cd] 180 mg PO DAILY #30 cap 11/26/23 - PHYSICAL EXAM AT DISCHARGE General Appearance: positive: No acute distress, Alert Eyes Bilateral: positive: Normal inspection ENT: positive: ENT inspection nml Neck: positive: Nml inspection Respiratory: positive: No respiratory distress, Breath sounds nml Cardiovascular: positive: Regular rate & rhythm Abdomen: positive: Non-tender, No distention Skin: positive: Color nml Extremities: positive: Non-tender Neurologic/Psychiatric: positive: Disoriented to person, Disoriented to time - LABS Result Diagrams: 11/26/23 04:40 11/26/23 04:40 - SEPSIS Current Stage of Sepsis: Sepsis Possible source of Sepsis: Pulmonary Sepsis Criteria: Recorded Heart Rate greater than 90 bpm, WBC count greater than 12,000 or less than 4000 - FOLLOW UP Follow Up: Provider at [facility]dc facility - TIME SPENT Time Spent in Discharge (Minutes): 45"
== END 2023-11-26 14:10 | DRG 871 ==
LOC: EDUNIT# → ED 17:28 → UNDOADMIN 22:02 → MS2 22:02 → ICU 11-24 16:31 → MS2 11-25 15:37
PROVIDERS: ADMIT Student in an Organized Health Care Education/Training Program; ATTEND Physician Assistant Medical
PROC: 30233N1 Transfusion of Nonautologous Red Blood Cells into Peripheral Vein, Percutaneous Approach (ICD-10-PCS; principal; 2023-11-25)
DX: A41.9 Sepsis, unspecified organism (principal); I50.23 Acute on chronic systolic (congestive) heart failure; J18.9 Pneumonia, unspecified organism; R94.31 Abnormal electrocardiogram [ECG] [EKG]; N39.0 Urinary tract infection, site not specified; T83.511A Infection and inflammatory reaction due to indwelling urethral catheter, initial encounter; I50.9 Heart failure, unspecified; E11.9 Type 2 diabetes mellitus without complications; I11.0 Hypertensive heart disease with heart failure; G89.29 Other chronic pain; I48.0 Paroxysmal atrial fibrillation; R32 Unspecified urinary incontinence; I95.9 Hypotension, unspecified; D64.9 Anemia, unspecified; F32.A Depression, unspecified; F41.9 Anxiety disorder, unspecified; K21.9 Gastro-esophageal reflux disease without esophagitis; F03.90 Unspecified dementia, unspecified severity, without behavioral disturbance, psychotic disturbance, mood disturbance, and anxiety; E11.65 Type 2 diabetes mellitus with hyperglycemia; R79.1 Abnormal coagulation profile; Z74.01 Bed confinement status; Z79.01 Long term (current) use of anticoagulants; Z79.899 Other long term (current) drug therapy
CPT/HCPCS: 36415; 71045; 71260; 74177; 80048; 80053; 81001; 83605; 85025; 85610; 86850; 86900; 86901; 86920; 87040; 87077; 87086; 87150; 87181; 93005; 96361; 96365; 96366; 96367; 96375; 99285; A9270; J3370; P9016; Q9967; 87081

== ENCOUNTER 2023-11-26 14:19 | Outpatient (CLI) | payer MEDICARE, BC | END 2023-11-26 23:59 | disposition home or self-care (01) | LOC: EMS 14:19 | PROVIDERS: ATTEND Physician Assistant Medical | DX: F03.90 Unspecified dementia, unspecified severity, without behavioral disturbance, psychotic disturbance, mood disturbance, and anxiety (principal); R41.0 Disorientation, unspecified; Z74.01 Bed confinement status | CPT/HCPCS: A0425; A0428 ==

== ENCOUNTER 2023-12-03 01:09 | Outpatient (CLI) | payer MEDICARE, BC | END 2023-12-03 01:10 | disposition critical access hospital (66) | LOC: EMS 01:09 | DX: R07.9 Chest pain, unspecified (principal); R00.0 Tachycardia, unspecified; R09.89 Other specified symptoms and signs involving the circulatory and respiratory systems | CPT/HCPCS: A0425; A0429 ==

== ENCOUNTER 2023-12-03 01:15 | Observation (INO) | payer MEDICARE, BC ==
--- NOTE | 2023-12-03 01:34 | XRAY Report ---
PROCEDURE: Chest 1V INDICATIONS: chest pain TECHNIQUE: One view of the chest was acquired. COMPARISON: 11/23/2023 FINDINGS: Surgical changes and devices: None. Lungs and pleura: Stable perihilar opacities, left greater than right. Mediastinum: A goiter is present. Heart size is enlarged. Large hiatal hernia. Bones and chest wall: No suspicious bony lesions. Overlying soft tissues appear unremarkable. IMPRESSION: Stable perihilar opacities, left greater than right. Reviewed by: Caleb Vasquez MD on 12/03/2023 1:32 AM PDT Approved by: Caleb Vasquez MD on 12/03/2023 1:32 AM PDT Station ID: [id number]
[2023-12-03 01:36] LABS: BASOPHILS % (AUTO) 0.3 %; EOSINOPHILS # (AUTO) 0.2 10^3/uL (0.0-0.7); EOSINOPHILS % (AUTO) 1.6 %; HCT - HEMATOCRIT 31.1 % (37.0-47.0); LYMPHOCYTES # (AUTO) 1.6 10^3/uL (1.5-3.5); MEAN CORPUSCULAR HEMOGLOBIN 23.3 pg (27.0-31.0); MEAN CORPUSCULAR HGB CONC 28.9 g/dL (32.0-36.0); MEAN CORPUSCULAR VOLUME 80.6 fL (81.0-99.0); MEAN PLATELET VOLUME 9.4 fL (7.9-10.8); MONOCYTES # (AUTO) 0.6 10^3/uL (0.0-1.0); MONOCYTES % (AUTO) 4.7 %; NEUTROPHILS # (AUTO) 9.2 10^3/uL (1.5-6.6); NEUTROPHILS % (AUTO) 79.1 %; PLT - PLATELET COUNT 365 10^3/uL (130-450); RED BLOOD COUNT 3.86 10^6/uL (4.20-5.40); RED CELL DISTRIBUTION WIDTH 20.8 % (12.0-15.0); WHITE BLOOD COUNT 11.7 x10^3/uL (4.8-10.8)
[2023-12-03 01:40] LABS: SLIDE REVIEW? Indicated
[2023-12-03 01:58] LABS: TROPONIN I HIGH SENSITIVITY 11.5 ng/L (2.3-14.8)
[2023-12-03 02:01] LABS: PLATELET ESTIMATE, MANUAL NORMAL (130-450,000) (NORMAL)
[2023-12-03 02:02] LABS: LIPASE < 10 U/L (11-82)
[2023-12-03 02:05] LABS: ALBUMIN 2.9 g/dL (3.2-5.5); ALBUMIN/GLOBULIN RATIO 0.6 (1.0-2.2); ALKALINE PHOSPHATASE 89 IU/L (42-121); ALT ALANINE AMINOTRANSFERASE 7 IU/L (10-60); AST ASPARTATE AMINOTRANSFERASE 10 IU/L (10-42); BILIRUBIN,TOTAL 0.5 mg/dL (0.2-1.0); BUN - BLOOD UREA NITROGEN 13 mg/dL (6-20); CALCIUM 9.1 mg/dL (8.5-10.3); CARBON DIOXIDE - CO2 44 mmol/L (21-32); CHLORIDE 93 mmol/L (101-111); CREATININE 0.6 mg/dL (0.6-1.3); GFR - MDRD 98 (>89); GLUCOSE 118 mg/dL (74-104); POTASSIUM 3.6 mmol/L (3.5-4.5); SODIUM 141 mmol/L (135-145); TOTAL PROTEIN 7.4 g/dL (6.4-8.9)
--- NOTE | 2023-12-03 04:11 | ED Physician Documentation ---
History of Present Illness - Stated complaint Stated Complaint: IRREGULAR HR - Chief complaint Chief Complaint: Cardiac - History obtained from History obtained from: Patient, EMS - Additonal information Additional information: Gloria Acosta is a 72-year-old female with vascular dementia who resides at [facility] in [place]. She is brought to the hospital this evening with tachycardia with heart rate up to 150. The patient is a poor historian and unable to give details of why she is here. She has recently been treated for urinary tract infection and she has had a prior history of pneumonia as well. She is on oxygen at [facility]. 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 : Kidney stones HEENT: Chronic vision loss Psych: Depression, Anxiety Musculoskeletal: Osteoarthritis, Chronic back pain Derm: None - Past Surgical History Past Surgical History: Yes General: Cholecystectomy Ortho: Knee replacement, Other HEENT: Cataracts - Present Medications Home Medications: Ambulatory Orders Medication Instructions Recorded Confirmed Duloxetine HCl [Cymbalta] 60 mg PO DAILY 07/19/20 11/24/23 Solifenacin Succinate [Vesicare] 5 mg PO DAILY 07/19/20 11/24/23 Acetaminophen [Tylenol] 650 mg PO Q6H PRN 11/05/23 11/24/23 Pregabalin [Lyrica] 100 mg PO TID 11/05/23 11/24/23 ARIPiprazole [Abilify] 10 mg PO QPM #20 tab 11/08/23 11/24/23 Atorvastatin Calcium [Lipitor] 80 mg PO QPM #30 tab 11/08/23 11/24/23 Cetirizine HCl [Allergy Relief] 5 mg PO DAILY #0 11/08/23 11/24/23 Furosemide [Lasix] 20 mg PO DAILY #30 tab 11/08/23 11/24/23 HYDROcod/ACETAM 5/325 [[place] 5/325] 0.5 ea PO TID #0 tab 11/08/23 11/24/23 Pantoprazole [Protonix] 40 mg PO BID #0 11/08/23 11/24/23 Warfarin [Coumadin] 1 mg PO MOFR #0 11/08/23 11/24/23 Warfarin [Coumadin] 2 mg PO SUTUWETHSA #0 11/08/23 11/24/23 Bisacodyl Supp [Dulcolax Supp] 1 supp DC DAILY PRN 11/24/23 11/24/23 Mineral Oil [Mineral Oil Enema] 1 each DC DAILY PRN 11/24/23 11/24/23 Nystatin [Klayesta] 1 each TOP BID 11/24/23 11/24/23 Potassium Chloride [Micro-K] 10 meq PO Q48H 11/24/23 11/24/23 Senna [Senokot] 17.2 mg PO DAILY PRN 11/24/23 11/24/23 Tizanidine HCl 2 mg PO Q12H PRN 11/24/23 11/24/23 polyethylene glycoL 3350 [Miralax] 17 g PO DAILY PRN 11/24/23 11/24/23 Amox/Clav 875/125 [Augmentin 1 tablet PO Q12H 5 Days #10 tablet 11/26/23 875/125 Tab] diltiaZEM CD [Cardizem Cd] 180 mg PO DAILY #30 cap 11/26/23 - Allergies Allergies/Adverse Reactions: Allergies Allergy/AdvReac Type Severity Reaction Status Date / Time clindamycin Allergy Unknown Verified 12/03/23 01:23 phenobarbital Allergy Hives Verified 12/03/23 01:23 morphine AdvReac Intermediate Hallucinati Verified 12/03/23 01:23 ons doxycycline AdvReac Nausea Verified 12/03/23 01:23 - Social History Does the pt smoke?: No Smoking Status: Never smoker Does the pt drink ETOH?: No Does the pt have substance abuse?: Yes - Immunizations Immunizations are current?: Yes - POLST Patient has POLST: Yes POLST Status: Full Code PD ED PE NORMAL - Vitals Vital signs reviewed: Yes - General General: Well developed/nourished, Other (72-year-old female with a blank stare on her face.) - HEENT HEENT: Atraumatic - Cardiac Cardiac: No murmur, Other (Tacky and regular to 150) - Respiratory Respiratory: No respiratory distress, Other (Rhonchi bilaterally) - Abdomen Abdomen: Soft, Non tender - Back Back: No CVA TTP, No spinal TTP - Derm Derm: Normal color, Warm and dry, No rash - Extremities Extremities: No deformity, No edema - Neuro 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: 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, No motor deficit, No sensory deficit, Normal speech Eye Opening: Spontaneous Motor: Obeys Commands Verbal: Confused GCS Score: 14 - Psych Psych: Normal mood Results - Vitals Vitals: Vital Signs - 24 hr 12/03/23 12/03/23 12/03/23 01:23 02:00 02:30 Temperature 36.6 C Heart Rate 148 H 145 H 117 H Respiratory 24 18 13 Rate Blood Pressure 141/81 H 126/69 122/82 H O2 Saturation 90 L 98 100 If not protocol 2 2 : Oxygen Flow, liters/minute 12/03/23 12/03/23 12/03/23 03:30 04:30 04:58 Temperature Heart Rate 96 97 94 Respiratory 22 14 14 Rate Blood Pressure 131/94 H 90/54 L O2 Saturation 100 100 100 If not protocol 2 : Oxygen Flow, liters/minute 12/03/23 12/03/23 05:35 06:30 Temperature Heart Rate 92 102 H Respiratory 14 18 Rate Blood Pressure 118/50 L 128/63 O2 Saturation 99 100 If not protocol 2 2 : Oxygen Flow, liters/minute Oxygen O2 Source Nasal cannula - Labs Labs: Laboratory Tests 12/03/23 12/03/23 01:29 01:29 WBC 11.7 H RBC 3.86 L Hgb 9.0 L Hct 31.1 L MCV 80.6 L MCH 23.3 L MCHC 28.9 L RDW 20.8 H Plt Count 365 MPV 9.4 Neut # (Auto) 9.2 H Lymph # (Auto) 1.6 Ramsey # (Auto) 0.6 Eos # (Auto) 0.2 Baso # (Auto) 0.0 Absolute Nucleated RBC 0.00 Nucleated RBC % 0.0 Manual Slide Review Indicated Platelet Estimate NORMAL (130-450,000) RBC Morph Micro Appear 1+ OVALOCYTES Sodium 141 Potassium 3.6 Chloride 93 L Carbon Dioxide 44 H* Anion Gap 4.0 L BUN 13 Creatinine 0.6 Estimated GFR (MDRD) 98 Glucose 118 H Calcium 9.1 Total Bilirubin 0.5 AST 10 ALT 7 L Alkaline Phosphatase 89 Troponin I High Sens 11.5 Total Protein 7.4 Albumin 2.9 L Globulin 4.5 H Albumin/Globulin Ratio 0.6 L Lipase < 10 L - Rads (name of study) Chest Relevant Findings:: Prelim report reviewed (Impression: Stable perihilar opacities, left greater than right.), EMP independent interpretation of test, See rad report PD Medical Decision Making - ED course Complexity details: reviewed results, re-evaluated patient, considered differential, d/w patient Reviewed Lab Results: We reviewed a complete blood count showing an elevated white blood cell count of 11.7 hemoglobin diminished at 9.0 and hematocrit diminished at 31.1 both of these levels are improved from her most recent blood draw 1 week ago. Platelets are normal at 365,000 electrolytes show a critically high carbon dioxide at 44 the patient is usually run 34-36. Liver functions normal with the exception of albumin which is low at 2.9 ED course: 72-year-old Gloria Acosta presents from [facility] with a heart rate of 150. She has resolution of her symptoms with minimal intervention. We are able to provide some intravenous fluid as well as restarting antibiotics for hospital-acquired pneumonia. At shift change her care is turned over to Dr. Ríos with urinalysis pending and a stabilization of her vital signs. Departure - Departure Clinical Impression: Pneumonia Qualifiers: Pneumonia type: due to unspecified organism Laterality: bilateral Lung location: lower lobe of lung Qualified Code(s): J18.9 - Pneumonia, unspecified organism Condition: Stable Forms: PCP List
[2023-12-03] MEDS ORDERED: VANCOMYCIN 1 GM VIAL ONE (04:47)
[2023-12-03] MEDS: PIPERACILLIN/TAZOBACTAM 3.375 GM in SODIUM CHLORIDE 0.9% MINIBAG 100 ML IV STA (04:49)
[2023-12-03] MEDS: VANCOMYCIN INJ 1 GM in SODIUM CHLORIDE 0.9% 500 ML IV STA (05:26)
--- NOTE | 2023-12-03 09:05 | ED Physician Documentation ---
ED Addendum - Addendum Addendum: 12/03/23 09:05 Care endorsed to me by Dr. Curry. Briefly this is a 72-year-old woman who is full code and a resident of a snf who presents with significant tachycardia. On arrival she was in sinus tachycardia at a rate of almost 150. She was worked up with a chest x-ray that Dr. Curry felt was consistent with worsening pneumonia. She has mild leukocytosis with anemia and elevated CO2 on CMP. On my evaluation at this time she is encephalopathic. She will arouse to vigorous stimulus but not talking. She is in atrial flutter on the monitor with otherwise unremarkable vital signs. She has already received Zosyn and vancomycin per Dr. Curry for healthcare associated pneumonia. 12/03/23 09:07 I spoke with the hospitalist, Dr. Menchaca at this time we will see the patient about 10am as he has a meeting in the interim. Disposition: Admitted to the hospital Condition: Serious Diagnosis: 1. Encephalopathy 2. Healthcare associated pneumonia 3. Tachycardia
[2023-12-03 11:45] LABS: BILIRUBIN,URINE MODERATE (NEGATIVE); GLUCOSE, URINE (UA) NEGATIVE (NEGATIVE); KETONES,URINE (UA) NEGATIVE (NEGATIVE); LEUKOCYTE ESTERASE, URINE LARGE (NEGATIVE); NITRITE,URINE POSITIVE (NEGATIVE); OCCULT BLOOD,URINE LARGE (NEGATIVE); PROTEIN,URINE 100 mg/dL (NEGATIVE); UROBILINOGEN,URINE 2 E.U./dL (NORMAL)
[2023-12-03 11:49] LABS: CLARITY,URINE CLOUDY (CLEAR)
[2023-12-03 11:59] LABS: BACTERIA,URINE Moderate /HPF (None Seen); EPITHELIAL CELLS,UR FEW Renal Tubular /HPF (<= Few); RBC,URINE TNTC /HPF (0-5); SQUAMOUS EPITHELIAL CELL,UR MOD Squamous (<= Few); WBC CLUMPS,URINE PRESENT; WBC,URINE >25 /HPF (0-5)
[2023-12-03 13:21] LABS: ABG PO2 66 mmHg (80-100)
[2023-12-03 13:22] LABS: ABG BASE EXCESS 11.4 mmol/L (-2.0-3.0); ABG OXYGEN SATURATION 92 % (94-98); ALLEN TEST POSITIVE
[2023-12-03 13:25] LABS: ABG PCO2 62 mmHg (34-45); ABG TCO2 39.9 MMOL/L (21.0-29.0)
[2023-12-03] MEDS ORDERED: SODIUM CHLORIDE FLUSH 0.9% 10 ML SYRINGE IVP PRN (13:36)
--- NOTE | 2023-12-03 13:46 | HISTORY & PHYSICAL EXAMINATION ---
Chief Complaint - Chief Complaint Chief Complaint: Confusion History of Present Illness - Admitted From Admitted From:: Emergency room - History of Present Illness HPI Comment/Other: The patient is a 72-year-old obese female who resides at a local assisted facility. Her past medical history is significant for chronic respiratory failure main with biventricular heart failure and moderate aortic stenosis. In addition she has paroxysmal atrial fibrillation and rather advanced dementia. She is bedbound at baseline. She has known severe peripheral neuropathy. The patient was brought to the emergency room with altered mental status. When she arrived at the emergency room she was in sinus tachycardia with rates in the 150s. Chest x-ray was rather unrevealing. She was recently treated for pneumonia and discharged about a week ago. There was some concerns for a possible infiltrate and she was given IV vancomycin and Zosyn in the emergency room. When I went to see her there was no family members at the bedside. The patient is alert and oriented x 1 although she is able to speak to me. Review of systems could not be obtained due to her baseline confusion. History - Past Medical History Cardiovascular: reports: Congestive heart failure, Hypertension, Coronary artery disease, Deep vein thrombosis, Atrial fibrillation Respiratory: reports: Shortness of breath Neuro: reports: Dementia, CVA Endocrine/Autoimmune: reports: Type 2 diabetes GI: reports: GERD, GI bleed FOOD SAFETY COORDINATOR: reports: None : reports: Kidney stones HEENT: reports: Chronic vision loss Psych: reports: Depression, Anxiety Musculoskeletal: reports: Osteoarthritis, Chronic back pain Derm: reports: None MRSA Hx?: No - Past Surgical History General: reports: Cholecystectomy Ortho: reports: Knee replacement, Other HEENT: reports: Cataracts - Family & Social History Family History: Mother: , Father: Family History Comment/Other: pt's mother has Nbhmpxu-Hoqwe-Uzarx foot, age 71. Patient's father at age 62 from lung cancer and colon cancer. Both the patient and her sister had genetic disease of Znicidf-Tbekc-Ldbbu foot. 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 Patient has a history overdosage accidentally with opiate use - POLST Patient has POLST: Yes POLST Status: Full Code Meds/Allgy - Home Medications Home Medications: Ambulatory Orders Medication Instructions Recorded Confirmed Duloxetine HCl [Cymbalta] 60 mg PO DAILY 07/19/20 12/03/23 Solifenacin Succinate [Vesicare] 5 mg PO DAILY 07/19/20 12/03/23 Acetaminophen [Tylenol] 650 mg PO Q6H PRN 11/05/23 12/03/23 Pregabalin [Lyrica] 100 mg PO TID 11/05/23 12/03/23 ARIPiprazole [Abilify] 10 mg PO QPM #20 tab 11/08/23 12/03/23 Atorvastatin Calcium [Lipitor] 80 mg PO QPM #30 tab 11/08/23 12/03/23 Cetirizine HCl [Allergy Relief] 5 mg PO DAILY #0 11/08/23 12/03/23 Furosemide [Lasix] 20 mg PO DAILY #30 tab 11/08/23 12/03/23 HYDROcod/ACETAM 5/325 [[place] 5/325] 0.5 ea PO TID #0 tab 11/08/23 12/03/23 Pantoprazole [Protonix] 40 mg PO BID #0 11/08/23 12/03/23 Warfarin [Coumadin] 1 mg PO MOFR #0 11/08/23 12/03/23 Warfarin [Coumadin] 2 mg PO SUTUWETHSA #0 11/08/23 12/03/23 Potassium Chloride [Micro-K] 10 meq PO Q48H 11/24/23 12/03/23 Tizanidine HCl 2 mg PO Q12H PRN 11/24/23 12/03/23 diltiaZEM CD [Cardizem Cd] 180 mg PO DAILY #30 cap 11/26/23 12/03/23 Ondansetron Odt [Zofran Odt] 4 mg TL Q6H PRN 12/03/23 12/03/23 - Allergies Allergies/Adverse Reactions: Allergies Allergy/AdvReac Type Severity Reaction Status Date / Time clindamycin Allergy Unknown Verified 12/03/23 01:23 phenobarbital Allergy Hives Verified 12/03/23 01:23 morphine AdvReac Intermediate Hallucinati Verified 12/03/23 01:23 ons doxycycline AdvReac Nausea Verified 12/03/23 01:23 Review of Systems - All Other Systems All Other Systems: reports: Other (A review of systems could not be obtained due to the patient's baseline confusion) Prior Level of Functionality: The patient is bedbound and totally dependent for all of her ADLs Exam - Vital Signs Vital Signs: Vital Signs x48h Temp Pulse Resp BP Pulse Ox O2 Flow Rate 12/03/23 13:18 36.3 C L 117 H 18 145/86 H 93 1 12/03/23 08:00 35.5 C L 102 H 14 146/56 H 100 12/03/23 06:30 102 H 18 128/63 100 2 - Physical Exam General Appearance: positive: Other (The patient is mildly lethargic but will wake up. She knows her name. Otherwise she is not oriented. She does not appear to be in acute distress) Eyes Bilateral: positive: Normal inspection ENT: positive: ENT inspection nml Neck: positive: Nml inspection Respiratory: positive: Other (She has some scattered rhonchi and crackles in the lower bases bilaterally) Cardiovascular: positive: Irregularly irregular, Tachycardia, Systolic murmur (At the time of my visit the patient's heart rate is irregularly irregular and tachycardic. She does have a systolic ejection murmur) Abdomen: positive: Non-tender, No organomegaly, Nml bowel sounds Skin: positive: Color nml, No rash, Warm Extremities: positive: Non-tender, Pedal edema Neurologic/Psychiatric: positive: Mood/affect nml, Disoriented to place, Disoriented to time Sepsis Event Note (H) - Evaluation Current Stage of Sepsis: Ruled out Conclusion/Plan - Problem List (1) Paroxysmal atrial fibrillation with rapid ventricular response Conclusion/Plan: When she first presented to the emergency room she was in a sinus tachycardia with rates of 150. This later resolved. At the time of my visit she is in atrial fibrillation and her rates have been fluctuating between the low 100s and as high as 125. I am not sure she got her home dose of Cardizem. We will give this to her now. Will keep her on telemetry and see how she does for now. (2) Acute on chronic systolic and diastolic heart failure, NYHA class 3 Conclusion/Plan: The patient's most recent echocardiogram revealed a diminished ejection fraction of 40 to 45%. She also had moderate RV failure as well. In addition she had moderate aortic stenosis. The patient seems to be slightly volume overloaded. Will place her on IV Lasix and reassess in the morning. (3) Chronic respiratory failure Conclusion/Plan: The patient CO2 level is somewhat high and this seems to be new. However ABG reveals that she is compensated. She has hypoxic and hypercapnic respiratory failure for now. She does not require BiPAP. I would titrate her oxygen saturations to keep them only at about 92%. (4) Leukocytosis Conclusion/Plan: At this point I do not believe she has an underlying pneumonia. The urine was not obtained in the emergency room. Will add a UA and urine culture onto her orders. Of note she has already received a dose of IV vancomycin and Zosyn. She does have a history of recurrent urinary tract infections. (5) Acute metabolic encephalopathy Conclusion/Plan: It was reported that she was somewhat obtunded at the time of admission. After talking to the patient's son it does appear that she may be a little worse than her cognitive baseline. This could be due to her respiratory failure and hypercapnia versus a possible urinary tract infection. UA and urine culture are pending. By the time I saw the patient she after she received IV antibiotics her mentation had improved a bit. I am going to hold her pain medication and muscle relaxers for now. (6) Moderate aortic stenosis Conclusion/Plan: Not causing any issues at this point. (8) Peripheral neuropathy Conclusion/Plan: Continue home dose of Lyrica Qualifiers: Peripheral neuropathy type: polyneuropathy, unspecified Qualified Code(s): G62.9 - Polyneuropathy, unspecified (9) Vascular dementia Conclusion/Plan: According to discussion with the son she does not appear to be at her cognitive baseline. Supportive care. (10) Moderate major depression Conclusion/Plan: Continue Cymbalta and Abilify (11) Charcot-Gia disease Conclusion/Plan: Supportive care (12) Bedbound Conclusion/Plan: The patient is bedbound at baseline and requires total care (13) Microcytic anemia Conclusion/Plan: Likely iron deficiency. Will get iron studies. Her hemoglobin appears to be stable (14) Do not intubate, perform CPR, or defibrillate Conclusion/Plan: I spoke to the patient's son. He would like for her to have CPR but does not wish for her to be intubated. Disposition: The patient will be placed in observation in the hospital. We will gently diurese her and make sure that her heart rate is under better control. Hopefully she will improve and be able to go back to her facility over the weekend. At this juncture in time I expect her hospitalization to span less ursula n 2 midnights Time spent: 45 minutes - Lab Results Fish Bones: 12/03/23 01:29 12/03/23 01:29
--- NOTE | 2023-12-03 15:32 | PHARMACY PROGRESS NOTE ---
- Best Possible Medication History Admit Date and Time: 12/03/23 1336 Processed by: Pharmacy Medication History completed: No Patient Interview: Pt unable to participate Secondary Source(s): Written medication list, Insurance records (PER [employer] NCE RECORDS AND CURRENT MEDICATION LIST FROM [facility]) As the person ultimately responsible for medication therapy, providers are able to order a medication from an existing home medication list in [facility] via the "Reconcile Routine" prior to Confirmation of that medication by computer support specialist instructor. Such practice is discouraged except when the physician, in their clinical judgment, deems that a medical need exists for a medication without regard to previous use.
[2023-12-03] MEDS: PREGABALIN 100 MG CAPSULE PO SCH (15:33)
[2023-12-03] MEDS: diltiaZEM CD 180 MG CAPSULE PO SCH (16:21)
[2023-12-03] MEDS: ACETAMINOPHEN 325 MG TABLET PO PRN (16:21)
[2023-12-03] MEDS: SODIUM CHLORIDE FLUSH 0.9% 10 ML SYRINGE IVP SCH (19:32)
[2023-12-03] MEDS: PANTOPRAZOLE 40 MG TABLET PO SCH (20:25)
[2023-12-03] MEDS: ATORVASTATIN 40 MG TABLET PO SCH (20:25)
[2023-12-03] MEDS: FUROSEMIDE 40 MG/4 ML VIAL IVP SCH (20:25)
[2023-12-03] MEDS: ARIPiprazole 5 MG TABLET PO SCH (20:25)
[2023-12-03 23:04] LABS: BILIRUBIN,URINE NEGATIVE (NEGATIVE); GLUCOSE, URINE (UA) NEGATIVE (NEGATIVE); KETONES,URINE (UA) NEGATIVE (NEGATIVE); LEUKOCYTE ESTERASE, URINE NEGATIVE (NEGATIVE); NITRITE,URINE NEGATIVE (NEGATIVE); OCCULT BLOOD,URINE TRACE-INTA (NEGATIVE); PROTEIN,URINE NEGATIVE (NEGATIVE); UROBILINOGEN,URINE 0.2 (NORMAL) E.U./dL (NORMAL)
[2023-12-03 23:19] LABS: BACTERIA,URINE Few /HPF (None Seen); CLARITY,URINE CLEAR (CLEAR); EPITHELIAL CELLS,UR FEW Renal Tubular /HPF (<= Few); RBC,URINE 0-5 /HPF (0-5); SQUAMOUS EPITHELIAL CELL,UR FEW Squamous (<= Few); WBC,URINE 0-3 /HPF (0-5)
[2023-12-04] MEDS: ZINC OXIDE 20% OINT 30 GM TUBE TOP PRN (00:59)
[2023-12-04] MEDS: diltiaZEM CD 180 MG CAPSULE PO SCH (04:25)
[2023-12-04 04:54] LABS: BASOPHILS % (AUTO) 0.3 %; EOSINOPHILS # (AUTO) 0.2 10^3/uL (0.0-0.7); EOSINOPHILS % (AUTO) 2.2 %; HCT - HEMATOCRIT 30.6 % (37.0-47.0); HGB - HEMOGLOBIN 8.6 g/dL (12.0-16.0); LYMPHOCYTES # (AUTO) 1.2 10^3/uL (1.5-3.5); LYMPHOCYTES % (AUTO) 11.9 %; MEAN CORPUSCULAR HEMOGLOBIN 22.8 pg (27.0-31.0); MEAN CORPUSCULAR HGB CONC 28.1 g/dL (32.0-36.0); MEAN CORPUSCULAR VOLUME 81.2 fL (81.0-99.0); MONOCYTES # (AUTO) 0.5 10^3/uL (0.0-1.0); MONOCYTES % (AUTO) 5.2 %; NEUTROPHILS # (AUTO) 7.9 10^3/uL (1.5-6.6); PLT - PLATELET COUNT 315 10^3/uL (130-450); RED BLOOD COUNT 3.77 10^6/uL (4.20-5.40); RED CELL DISTRIBUTION WIDTH 20.7 % (12.0-15.0); WHITE BLOOD COUNT 9.8 x10^3/uL (4.8-10.8)
[2023-12-04 05:21] LABS: ALBUMIN 2.7 g/dL (3.2-5.5); MAGNESIUM 1.5 mg/dL (1.7-2.3); PHOSPHORUS 3.1 mg/dL (2.5-5.0)
[2023-12-04 05:29] LABS: BUN - BLOOD UREA NITROGEN 14 mg/dL (6-20); CALCIUM 8.8 mg/dL (8.5-10.3); CARBON DIOXIDE - CO2 > 45 mmol/L (21-32); CHLORIDE 93 mmol/L (101-111); CREATININE 0.6 mg/dL (0.6-1.3); GFR - MDRD 98 (>89); GLUCOSE 123 mg/dL (74-104); POTASSIUM 3.4 mmol/L (3.5-4.5); SODIUM 143 mmol/L (135-145)
[2023-12-04] MEDS ORDERED: FUROSEMIDE 40 MG/4 ML VIAL IVP SCH (08:00)
[2023-12-04] MEDS: POTASSIUM CHLORIDE 20 MEQ TABLET PO ONE (08:02)
[2023-12-04] MEDS: MAGNESIUM SULFATE 2 GRAM 2 GM/50 ML BAG IV ONE (08:02)
[2023-12-04] MEDS ORDERED: ENOXAPARIN 40 MG/0.4 ML SYRINGE SUBQ SCH (09:00)
[2023-12-04] MEDS ORDERED: diltiaZEM CD 180 MG CAPSULE PO SCH (09:00)
[2023-12-04] MEDS: FUROSEMIDE 20 MG TABLET PO SCH (10:01)
[2023-12-04] MEDS: DULoxetine 60 MG CAPSULE PO SCH (10:02)
[2023-12-04] MEDS: SOLIFENACIN SUCCINATE 5 MG TABLET PO SCH (10:02)
[2023-12-04] MEDS: CETIRIZINE 10 MG TABLET PO SCH (10:02)
[2023-12-04 10:28] LABS: ABG PH 7.45 (7.35-7.45)
[2023-12-04 10:29] LABS: ABG BASE EXCESS 19.1 mmol/L (-2.0-3.0); ABG OXYGEN SATURATION 91 % (94-98); ABG PO2 61 mmHg (80-100); ALLEN TEST POSITIVE
[2023-12-04 10:30] LABS: ABG PCO2 68 mmHg (34-45)
[2023-12-04 10:31] LABS: ABG TCO2 48.1 MMOL/L (21.0-29.0)
--- NOTE | 2023-12-04 10:38 | PROVIDER PROGRESS NOTE ---
Subjective - Prog Note Date Prog Note Date: 12/04/23 Prog Note Time: 10:35 - Subjective Pt reports feeling: No change Subjective: The patient is sleeping. She was arousable but kept falling asleep in between sentences when I was talking to her. No family members are present at the bedside. Review of systems could not be obtained Current Medications - Current Medications Current Medications: Active Medications Generic Name Dose Route Start Last Admin Trade Name Freq PRN Reason Stop Dose Admin Acetaminophen 650 mg 12/03/23 13:39 12/03/23 16:21 Acetaminophen 325 Mg Tablet PO 650 mg Q6H PRN Administration PRN PAIN &/OR FEVER Aripiprazole 10 mg 12/03/23 21:00 12/03/23 20:25 Aripiprazole 5 Mg Tablet PO 10 mg QPM CHELSEA Administration Atorvastatin Calcium 80 mg 12/03/23 21:00 12/03/23 20:25 Atorvastatin 40 Mg Tablet PO 80 mg QPM CHELSEA Administration Cetirizine HCl 5 mg 12/04/23 09:00 12/04/23 10:02 Cetirizine 10 Mg Tablet PO 5 mg DAILY CHELSEA Administration Diltiazem HCl 60 mg 12/04/23 07:12 12/04/23 08:02 Diltiazem 60 Mg Tablet PO 60 mg Q6HR CHELSEA Administration Duloxetine HCl 60 mg 12/04/23 09:00 12/04/23 10:02 Duloxetine 60 Mg Capsule PO 60 mg DAILY CHELSEA Administration Furosemide 40 mg 12/04/23 09:00 12/04/23 10:01 Furosemide 20 Mg Tablet PO 40 mg DAILY CHELSEA Administration Multi-Ingredient Ointment 1 applic 12/04/23 00:11 12/04/23 06:32 Zinc Oxide 20% Oint 30 Gm Tube TOP 1 applic PRN PRN Administration Skin Care Ondansetron HCl 4 mg 12/03/23 13:39 Ondansetron Odt 4 Mg Tablet TL Q6H PRN Nausea / Vomiting Pantoprazole Sodium 40 mg 12/03/23 21:00 12/04/23 10:01 Pantoprazole 40 Mg Tablet PO 40 mg BID CHELSEA Administration Pregabalin 100 mg 12/03/23 14:00 12/04/23 06:22 Pregabalin 100 Mg Capsule PO 100 mg TID CHELSEA Administration Sodium Chloride 10 ml 12/03/23 13:36 Sodium Chloride Flush 0.9% 10 Ml Syringe IVP PRN PRN NEEDED PER PROVIDER ORDERS Sodium Chloride 10 ml 12/03/23 17:00 12/04/23 08:12 Sodium Chloride Flush 0.9% 10 Ml Syringe IVP 10 ml 0100,0900,1700 CHELSEA Administration Solifenacin 5 mg 12/04/23 09:00 12/04/23 10:02 Solifenacin Succinate 5 Mg Tablet PO 5 mg DAILY CHELSEA Administration Warfarin Sodium 1 mg 12/03/23 14:00 Warfarin 1 Mg Tablet PO MOFR CHELSEA Warfarin Sodium 2 mg 12/04/23 13:39 Warfarin 1 Mg Tablet PO SUTUWETHSA CHELSEA Duloxetine HCl [Cymbalta] 60 mg PO DAILY 07/19/20 Solifenacin Succinate [Vesicare] 5 mg PO DAILY 07/19/20 Acetaminophen [Tylenol] 650 mg PO Q6H PRN 11/05/23 Pregabalin [Lyrica] 100 mg PO TID 11/05/23 Potassium Chloride [Micro-K] 10 meq PO DAILY 11/24/23 Tizanidine HCl 2 mg PO Q12H PRN 11/24/23 Ondansetron Odt [Zofran Odt] 4 mg TL Q6H PRN 12/03/23 hydrALAZINE [Apresoline] 0.5 tab PO DAILY PRN 12/03/23 Objective - Vital Signs/Intake & Output Reviewed Vital Signs: Yes Vital Signs: Vital Signs x48h Temp Pulse Resp BP BP Pulse Ox O2 Flow Rate 12/04/23 08:02 137/51 H 12/04/23 07:56 36.6 C 20 130/58 L 89 L 2 12/04/23 05:00 36.6 C 118 H 20 140/85 H 92 2 Intake & Output: Intake & Output 12/01/23 12/02/23 12/03/23 12/04/23 23:59 23:59 23:59 23:59 Intake Total 1020 730 Output Total 100 Balance 920 730 - Objective General Appearance: positive: No acute distress, Lethargic, Other (Not oriented) ENT: positive: ENT inspection nml Neck: positive: Nml inspection Respiratory: positive: Chest non-tender, No respiratory distress, Other (She would not cooperate with an exam. She seems to be diminished in the lower bases bilaterally) Cardiovascular: positive: Regular rate & rhythm, No murmur, No gallop. negative: Friction rub Abdomen: positive: Non-tender, No organomegaly, Nml bowel sounds, Other (Her abdomen is obese) Skin: positive: No rash, Pallor Extremities: positive: Pedal edema Neurologic/Psychiatric: positive: CN's nml (2-12), Disoriented to place, Disorie nted to time, Other (Quite lethargic and somnolent). negative: Disoriented to person - Lab Results Fish Bones: 12/04/23 04:46 12/04/23 04:46 Other Labs: Lab Results x24hrs 12/04/23 12/04/23 12/04/23 Range/Units 10:25 04:46 04:46 WBC 9.8 (4.8-10.8) x10^3/uL RBC 3.77 L (4.20-5.40) 10^6/uL Hgb 8.6 L (12.0-16.0) g/dL Hct 30.6 L (37.0-47.0) % MCV 81.2 (81.0-99.0) fL MCH 22.8 L (27.0-31.0) pg MCHC 28.1 L (32.0-36.0) g/dL RDW 20.7 H (12.0-15.0) % Plt Count 315 (130-450) 10^3/uL MPV 9.0 (7.9-10.8) fL Neut # (Auto) 7.9 H (1.5-6.6) 10^3/uL Lymph # (Auto) 1.2 L (1.5-3.5) 10^3/uL [place] # (Auto) 0.5 (0.0-1.0) 10^3/uL Eos # (Auto) 0.2 (0.0-0.7) 10^3/uL Baso # (Auto) 0.0 (0.0-0.1) 10^3/uL Absolute Nucleated RBC 0.00 x10^3/uL Nucleated RBC % 0.0 /100WBC Bld Gas Analysis Time 1025 Sample Site RIGHT RADIAL ABG pH 7.45 (7.35-7.45) ABG pCO2 68 H* (34-45) mmHg ABG pO2 61 L (80-100) mmHg ABG HCO3 46.0 H (22.0-26.0) mmol/L ABG Total CO2 48.1 H* (21.0-29.0) MMOL/L ABG O2 Saturation 91 L (94-98) % ABG Base Excess 19.1 H (-2.0-3.0) mmol/L Lauro Test POSITIVE O2 Delivery Device NASAL CANNULA O2 Liters/Min 2.00 LPM Sodium 143 (135-145) mmol/L Potassium 3.4 L (3.5-4.5) mmol/L Chloride 93 L (101-111) mmol/L Carbon Dioxide > 45 H* (21-32) mmol/L Anion Gap TNP BUN 14 (6-20) mg/dL Creatinine 0.6 (0.6-1.3) mg/dL Estimated GFR (MDRD) 98 (>89) Glucose 123 H (74-104) mg/dL Calcium 8.8 (8.5-10.3) mg/dL Phosphorus 3.1 (2.5-5.0) mg/dL Magnesium 1.5 L (1.7-2.3) mg/dL B-Natriuretic Peptide (5-100) pg/mL Albumin 2.7 L (3.2-5.5) g/dL Procalcitonin Immunoas (<0.5) ng/mL Urine Color Urine Clarity (CLEAR) Urine pH (5.0-7.5) PH Ur Specific [place] (1.002-1.030) Urine Protein (NEGATIVE) mg/dL Urine Glucose (UA) (NEGATIVE) mg/dL Urine Ketones (NEGATIVE) mg/dL Urine Occult Blood (NEGATIVE) Urine Nitrite (NEGATIVE) Urine Bilirubin (NEGATIVE) Urine Urobilinogen (NORMAL) E.U./dL Ur Leukocyte Esterase (NEGATIVE) Urine RBC (0-5) /HPF Urine WBC (0-5) /HPF Urine WBC Clumps Ur Epithelial Cells (<= Few) /HPF Ur Squamous Epith Cells (<= Few) Urine Bacteria (None Seen) /HPF Ur Microscopic Review Urine Culture Comments 12/03/23 12/03/23 12/03/23 Range/Units 22:55 18:02 18:02 WBC (4.8-10.8) x10^3/uL RBC (4.20-5.40) 10^6/uL Hgb (12.0-16.0) g/dL Hct (37.0-47.0) % MCV (81.0-99.0) fL MCH (27.0-31.0) pg MCHC (32.0-36.0) g/dL RDW (12.0-15.0) % Plt Count (130-450) 10^3/uL MPV (7.9-10.8) fL Neut # (Auto) (1.5-6.6) 10^3/uL Lymph # (Auto) (1.5-3.5) 10^3/uL [place] # (Auto) (0.0-1.0) 10^3/uL Eos # (Auto) (0.0-0.7) 10^3/uL Baso # (Auto) (0.0-0.1) 10^3/uL Absolute Nucleated RBC x10^3/uL Nucleated RBC % /100WBC Bld Gas Analysis Time Sample Site ABG pH (7.35-7.45) ABG pCO2 (34-45) mmHg ABG pO2 (80-100) mmHg ABG HCO3 (22.0-26.0) mmol/L ABG Total CO2 (21.0-29.0) MMOL/L ABG O2 Saturation (94-98) % ABG Base Excess (-2.0-3.0) mmol/L Lauro Test O2 Delivery Device O2 Liters/Min LPM Sodium (135-145) mmol/L Potassium (3.5-4.5) mmol/L Chloride (101-111) mmol/L Carbon Dioxide (21-32) mmol/L Anion Gap BUN (6-20) mg/dL Creatinine (0.6-1.3) mg/dL Estimated GFR (MDRD) (>89) Glucose (74-104) mg/dL Calcium (8.5-10.3) mg/dL Phosphorus (2.5-5.0) mg/dL Magnesium (1.7-2.3) mg/dL B-Natriuretic Peptide 192 H (5-100) pg/mL Albumin (3.2-5.5) g/dL Procalcitonin Immunoas < 0.05 (<0.5) ng/mL Urine Color YELLOW Urine Clarity CLEAR (CLEAR) Urine pH 7.0 (5.0-7.5) PH Ur Specific [place] 1.015 (1.002-1.030) Urine Protein NEGATIVE (NEGATIVE) mg/dL Urine Glucose (UA) NEGATIVE (NEGATIVE) mg/dL Urine Ketones NEGATIVE (NEGATIVE) mg/dL Urine Occult Blood TRACE-INTA (NEGATIVE) Urine Nitrite NEGATIVE (NEGATIVE) Urine Bilirubin NEGATIVE (NEGATIVE) Urine Urobilinogen 0.2 (NORMAL) (NORMAL) E.U./dL Ur Leukocyte Esterase NEGATIVE (NEGATIVE) Urine RBC 0-5 (0-5) /HPF Urine WBC 0-3 (0-5) /HPF Urine WBC Clumps Ur Epithelial Cells FEW Renal Tubular (<= Few) /HPF Ur Squamous Epith Cells FEW Squamous (<= Few) Urine Bacteria Few (None Seen) /HPF Ur Microscopic Review Urine Culture Comments NOT INDICATED 12/03/23 12/03/23 Range/Units 13:10 11:35 WBC (4.8-10.8) x10^3/uL RBC (4.20-5.40) 10^6/uL Hgb (12.0-16.0) g/dL Hct (37.0-47.0) % MCV (81.0-99.0) fL MCH (27.0-31.0) pg MCHC (32.0-36.0) g/dL RDW (12.0-15.0) % Plt Count (130-450) 10^3/uL MPV (7.9-10.8) fL Neut # (Auto) (1.5-6.6) 10^3/uL Lymph # (Auto) (1.5-3.5) 10^3/uL [place] # (Auto) (0.0-1.0) 10^3/uL Eos # (Auto) (0.0-0.7) 10^3/uL Baso # (Auto) (0.0-0.1) 10^3/uL Absolute Nucleated RBC x10^3/uL Nucleated RBC % /100WBC Bld Gas Analysis Time 1321 Sample Site LEFT RADIAL ABG pH 7.40 (7.35-7.45) ABG pCO2 62 H* (34-45) mmHg ABG pO2 66 L (80-100) mmHg ABG HCO3 38.0 H (22.0-26.0) mmol/L ABG Total CO2 39.9 H* (21.0-29.0) MMOL/L ABG O2 Saturation 92 L (94-98) % ABG Base Excess 11.4 H (-2.0-3.0) mmol/L Lauro Test POSITIVE O2 Delivery Device NASAL [place]NULA O2 Liters/Min 1.00 LPM Sodium (135-145) mmol/L Potassium (3.5-4.5) mmol/L Chloride (101-111) mmol/L Carbon Dioxide (21-32) mmol/L Anion Gap BUN (6-20) mg/dL Creatinine (0.6-1.3) mg/dL Estimated GFR (MDRD) (>89) Glucose (74-104) mg/dL Calcium (8.5-10.3) mg/dL Phosphorus (2.5-5.0) mg/dL Magnesium (1.7-2.3) mg/dL B-Natriuretic Peptide (5-100) pg/mL Albumin (3.2-5.5) g/dL Procalcitonin Immunoas (<0.5) ng/mL Urine Color BROWN Urine Clarity CLOUDY (CLEAR) Urine pH 7.0 (5.0-7.5) PH Ur Specific [place] 1.020 (1.002-1.030) Urine Protein 100 H (NEGATIVE) mg/dL Urine Glucose (UA) NEGATIVE (NEGATIVE) mg/dL Urine Ketones NEGATIVE (NEGATIVE) mg/dL Urine Occult Blood LARGE H (NEGATIVE) Urine Nitrite POSITIVE H (NEGATIVE) Urine Bilirubin MODERATE H (NEGATIVE) Urine Urobilinogen 2 H (NORMAL) E.U./dL Ur Leukocyte Esterase LARGE H (NEGATIVE) Urine RBC TNTC H (0-5) /HPF Urine WBC >25 H (0-5) /HPF Urine WBC Clumps PRESENT Ur Epithelial Cells FEW Renal Tubular (<= Few) /HPF Ur Squamous Epith Cells MOD Squamous H (<= Few) Urine Bacteria Moderate H (None Seen) /HPF Ur Microscopic Review INDICATED Urine Culture Comments NOT INDICATED ABX Reporting Has patient been on IV antibiotics over the past 48 hours?: No Sepsis Event Note (H) - Evaluation Current Stage of Sepsis: Ruled out Assessment/Plan - Problem List (1) Paroxysmal atrial fibrillation with rapid ventricular response Impression: She continues to have rapid rates at times. Her Cardizem will be increased to 240 mg today. She already received her 180 mg dose this morning and she received an additional 60 mg. At the time of my visit her heart rate is in the low 100s. (2) Acute on chronic systolic and diastolic heart failure, NYHA class 3 Impression: She was diuresed with IV Lasix. Will change her back over to her oral regimen today (3) Chronic respiratory failure Impression: Continue oxygen support as needed. Would try to keep her oxygen saturations at about 92% (4) Leukocytosis Impression: Resolved. I believe she may have had a urinary tract infection at the time of admission.Please see discussion under urinary tract infection below. (5) UTI (urinary tract infection) Impression: She did have evidence of urinary tract infection at the time of admission. She received IV vancomycin and Zosyn yesterday. Her most recent microbiology was reviewed. She has had issues with Enterococcus as well as UTIs with Proteus and E. coli. Will place her on IV vancomycin and IV Rocephin for now until culture results are available (6) Acute metabolic encephalopathy Impression: Likely secondary to urinary tract infection. Will initiate broad-spectrum antibiotics today and await urine culture results. (7) Moderate aortic stenosis Impression: No issues at this point (8) Peripheral neuropathy Impression: Continue home dose of Lyrica (9) Vascular dementia Impression: She has rather advanced dementia at baseline. When her son comes to the hospital today we will try to discuss goals of care. (10) Moderate major depression Impression: Continue Abilify and Cymbalta (11) Charcot-Gia disease Impression: Noted (12) Bedbound Impression: The patient is bedbound at baseline. [facility]. Will order occupational therapy for an evaluation in the hospital (13) Microcytic anemia Impression: Stable. Likely iron deficiency. Awaiting iron studies (14) Hypokalemia Impression: This will be repleted today with 40 mEq of p.o. potassium. (15) Hypomagnesemia Impression: This will be repleted today with 2 g of IV magnesium sulfate (16) Do not intubate, perform CPR, or defibrillate Impression: I did speak to the patient's son over the phone and he would like her to be a DO NOT INTUBATE. However he would want chest compressions and defibrillation if necessary. Further goals of care will be discussed with him when he gets to the hospital. Disposition: Inpatient hospitalization remains necessary. Patient has urinary tract infection requiring parenteral antibiotics. She still confused off of her baseline. Timing of disposition will be determined by her clinical course Time spent: 35 minutes
[2023-12-04 11:10] LABS: INR 3.8 (0.8-1.2); PT - PROTHROMBIN TIME 37.4 secs (9.9-12.6)
[2023-12-04] MEDS: cefTRIAXone 1 GM in SODIUM CHLORIDE 0.9% MINIBAG 100 ML IV SCH (12:13)
[2023-12-04] MEDS: WARFARIN 1 MG TABLET PO SCH ×2 (14:19→14:29)
[2023-12-05 05:19] LABS: BASOPHILS % (AUTO) 0.4 %; EOSINOPHILS # (AUTO) 0.3 10^3/uL (0.0-0.7); HCT - HEMATOCRIT 28.8 % (37.0-47.0); HGB - HEMOGLOBIN 8.4 g/dL (12.0-16.0); LYMPHOCYTES # (AUTO) 1.7 10^3/uL (1.5-3.5); LYMPHOCYTES % (AUTO) 15.5 %; MEAN CORPUSCULAR HEMOGLOBIN 23.4 pg (27.0-31.0); MEAN CORPUSCULAR HGB CONC 29.2 g/dL (32.0-36.0); MEAN CORPUSCULAR VOLUME 80.2 fL (81.0-99.0); MEAN PLATELET VOLUME 9.9 fL (7.9-10.8); MONOCYTES # (AUTO) 0.7 10^3/uL (0.0-1.0); MONOCYTES % (AUTO) 6.4 %; NEUTROPHILS # (AUTO) 8.1 10^3/uL (1.5-6.6); NEUTROPHILS % (AUTO) 74.3 %; PLT - PLATELET COUNT 326 10^3/uL (130-450); RED BLOOD COUNT 3.59 10^6/uL (4.20-5.40); RED CELL DISTRIBUTION WIDTH 20.7 % (12.0-15.0); WHITE BLOOD COUNT 10.9 x10^3/uL (4.8-10.8)
[2023-12-05 05:41] LABS: ALBUMIN 2.6 g/dL (3.2-5.5); MAGNESIUM 1.9 mg/dL (1.7-2.3); PHOSPHORUS 3.3 mg/dL (2.5-5.0)
[2023-12-05 06:05] LABS: CALCIUM 8.7 mg/dL (8.5-10.3); CREATININE 0.8 mg/dL (0.6-1.3); POTASSIUM 3.7 mmol/L (3.5-4.5)
[2023-12-05 06:11] LABS: PT - PROTHROMBIN TIME 39.5 secs (9.9-12.6)
[2023-12-05] MEDS: diltiaZEM CD 240 MG CAPSULE PO SCH (08:31)
--- NOTE | 2023-12-05 09:21 | PROVIDER PROGRESS NOTE ---
Subjective - Prog Note Date Prog Note Date: 12/05/23 Prog Note Time: 09:20 - Subjective Pt reports feeling: Improved Subjective: The patient is much improved today after starting antibiotic therapy yesterday. She is sitting up in the bed she is awake and alert and answers questions fairly appropriately. She tells me that she feels better and that she knows that she was confused. I am not sure how good this review of systems is but she denies fever or chills. No chest pain or heart palpitations. No nausea vomiting or diarrhea. No urinary complaints Current Medications - Current Medications Current Medications: Active Medications Generic Name Dose Route Start Last Admin Trade Name Freq PRN Reason Stop Dose Admin Acetaminophen 650 mg 12/03/23 13:39 12/05/23 08:45 Acetaminophen 325 Mg Tablet PO 650 mg Q6H PRN Administration PRN PAIN &/OR FEVER Aripiprazole 10 mg 12/03/23 21:00 12/04/23 21:08 Aripiprazole 5 Mg Tablet PO 10 mg QPM CHELSEA Administration Atorvastatin Calcium 80 mg 12/03/23 21:00 12/04/23 21:09 Atorvastatin 40 Mg Tablet PO 80 mg QPM CHELSEA Administration Cetirizine HCl 5 mg 12/04/23 09:00 12/05/23 08:31 Cetirizine 10 Mg Tablet PO 5 mg DAILY CHELSEA Administration Diltiazem HCl 240 mg 12/05/23 09:00 12/05/23 08:31 Diltiazem Cd 240 Mg Capsule PO 240 mg DAILY CHELSEA Administration Furosemide 40 mg 12/04/23 09:00 12/05/23 08:31 Furosemide 20 Mg Tablet PO 40 mg DAILY CHELSEA Administration Ceftriaxone Sodium 1 gm/ 100 mls @ 200 mls/hr 12/04/23 11:00 12/05/23 08:32 Sodium Chloride IV 200 mls/hr DAILY CHELSEA Administration Multi-Ingredient Ointment 1 applic 12/04/23 00:11 12/05/23 06:33 Zinc Oxide 20% Oint 30 Gm Tube TOP 1 applic PRN PRN Administration Skin Care Ondansetron HCl 4 mg 12/03/23 13:39 Ondansetron Odt 4 Mg Tablet TL Q6H PRN Nausea / Vomiting Pantoprazole Sodium 40 mg 12/03/23 21:00 12/05/23 08:31 Pantoprazole 40 Mg Tablet PO 40 mg BID CHELSEA Administration Pregabalin 100 mg 12/03/23 14:00 12/05/23 06:45 Pregabalin 100 Mg Capsule PO 100 mg TID CHELSEA Administration Sodium Chloride 10 ml 12/03/23 13:36 Sodium Chloride Flush 0.9% 10 Ml Syringe IVP PRN PRN NEEDED PER PROVIDER ORDERS Sodium Chloride 10 ml 12/03/23 17:00 12/05/23 08:32 Sodium Chloride Flush 0.9% 10 Ml Syringe IVP 10 ml 0100,0900,1700 CHELSEA Administration Solifenacin 5 mg 12/04/23 09:00 12/05/23 08:31 Solifenacin Succinate 5 Mg Tablet PO 5 mg DAILY CHELSEA Administration Warfarin Sodium 1 mg 12/03/23 14:00 12/04/23 14:19 Warfarin 1 Mg Tablet PO Not Given MOFR [facility] Warfarin Sodium 2 mg 12/04/23 13:39 12/04/23 14:29 Warfarin 1 Mg Tablet PO 2 mg SUTUWETHSA CHELSEA Administration Duloxetine HCl [Cymbalta] 60 mg PO DAILY 07/19/20 Solifenacin Succinate [Vesicare] 5 mg PO DAILY 07/19/20 Acetaminophen [Tylenol] 650 mg PO Q6H PRN 11/05/23 Pregabalin [Lyrica] 100 mg PO TID 11/05/23 Potassium Chloride [Micro-K] 10 meq PO DAILY 11/24/23 Tizanidine HCl 2 mg PO Q12H PRN 11/24/23 Ondansetron Odt [Zofran Odt] 4 mg TL Q6H PRN 12/03/23 hydrALAZINE [Apresoline] 0.5 tab PO DAILY PRN 12/03/23 Objective - Vital Signs/Intake & Output Reviewed Vital Signs: Yes Vital Signs: Vital Signs x48h Temp Pulse Resp BP Pulse Ox O2 Flow Rate 12/05/23 08:40 90 L 2.5 12/05/23 08:36 88 L 2 12/05/23 08:30 3 12/05/23 08:28 36.6 C 75 20 156/60 H 92 3 12/05/23 06:17 36.6 C 72 20 140/63 H 94 3 Intake & Output: Intake & Output 12/02/23 12/03/23 12/04/23 12/05/23 23:59 23:59 23:59 23:59 Intake Total 1020 1410 240 Output Total 100 150 Balance 920 1260 240 - Objective General Appearance: positive: No acute distress, Other (She is awake alert and oriented x 2 today. Much improved) Eyes Bilateral: positive: Normal inspection ENT: positive: ENT inspection nml Neck: positive: Nml inspection Respiratory: positive: Chest non-tender, No respiratory distress, Other (She is diminished in the lower bases bilaterally but otherwise her lungs sound fairly clear) Cardiovascular: positive: Regular rate & rhythm, No murmur, No gallop. negative: Friction rub Abdomen: positive: Non-tender, No organomegaly, Nml bowel sounds Skin: positive: Color nml, No rash, Warm, Dry Extremities: positive: Pedal edema Neurologic/Psychiatric: positive: CN's nml (2-12), Disoriented to time - Lab Results Fish Bones: 12/05/23 05:00 12/05/23 05:00 Other Labs: Lab Results x24hrs 12/05/23 12/05/23 12/05/23 Range/Units 05:00 05:00 05:00 WBC 10.9 H (4.8-10.8) x10^3/uL RBC 3.59 L (4.20-5.40) 10^6/uL Hgb 8.4 L (12.0-16.0) g/dL Hct 28.8 L (37.0-47.0) % MCV 80.2 L (81.0-99.0) fL MCH 23.4 L (27.0-31.0) pg MCHC 29.2 L (32.0-36.0) g/dL RDW 20.7 H (12.0-15.0) % Plt Count 326 (130-450) 10^3/uL MPV 9.9 (7.9-10.8) fL Neut # (Auto) 8.1 H (1.5-6.6) 10^3/uL Lymph # (Auto) 1.7 (1.5-3.5) 10^3/uL [place] # (Auto) 0.7 (0.0-1.0) 10^3/uL Eos # (Auto) 0.3 (0.0-0.7) 10^3/uL Baso # (Auto) 0.0 (0.0-0.1) 10^3/uL Absolute Nucleated RBC 0.00 x10^3/uL Nucleated RBC % 0.0 /100WBC PT 39.5 H (9.9-12.6) secs INR 4.0 H (0.8-1.2) Bld Gas Analysis Time Sample Site ABG pH (7.35-7.45) ABG pCO2 (34-45) mmHg ABG pO2 (80-100) mmHg ABG HCO3 (22.0-26.0) mmol/L ABG Total CO2 (21.0-29.0) MMOL/L ABG O2 Saturation (94-98) % ABG Base Excess (-2.0-3.0) mmol/L Lauro Test O2 Delivery Device O2 Liters/Min LPM Sodium 142 (135-145) mmol/L Potassium 3.7 (3.5-4.5) mmol/L Chloride 94 L (101-111) mmol/L Carbon Dioxide 45 H* (21-32) mmol/L Anion Gap 3.0 L (6-13) BUN 17 (6-20) mg/dL Creatinine 0.8 (0.6-1.3) mg/dL Estimated GFR (MDRD) 70 L (>89) Glucose 117 H (74-104) mg/dL Calcium 8.7 (8.5-10.3) mg/dL Phosphorus 3.3 (2.5-5.0) mg/dL Magnesium 1.9 (1.7-2.3) mg/dL Iron 30 L (50-212) ug/dL TIBC 283 (250-450) ug/dL % Saturation 11 L (20-50) % Transferrin 202 L (203-362) mg/dL Albumin 2.6 L (3.2-5.5) g/dL 12/04/23 12/04/23 Range/Units 10:55 10:25 WBC (4.8-10.8) x10^3/uL RBC (4.20-5.40) 10^6/uL Hgb (12.0-16.0) g/dL Hct (37.0-47.0) % MCV (81.0-99.0) fL MCH (27.0-31.0) pg MCHC (32.0-36.0) g/dL RDW (12.0-15.0) % Plt Count (130-450) 10^3/uL MPV (7.9-10.8) fL Neut # (Auto) (1.5-6.6) 10^3/uL Lymph # (Auto) (1.5-3.5) 10^3/uL [place] # (Auto) (0.0-1.0) 10^3/uL Eos # (Auto) (0.0-0.7) 10^3/uL Baso # (Auto) (0.0-0.1) 10^3/uL Absolute Nucleated RBC x10^3/uL Nucleated RBC % /100WBC PT 37.4 H (9.9-12.6) secs INR 3.8 H (0.8-1.2) Bld Gas Analysis Time 1025 Sample Site RIGHT RADIAL ABG pH 7.45 (7.35-7.45) ABG pCO2 68 H* (34-45) mmHg ABG pO2 61 L (80-100) mmHg ABG HCO3 46.0 H (22.0-26.0) mmol/L ABG Total CO2 48.1 H* (21.0-29.0) MMOL/L ABG O2 Saturation 91 L (94-98) % ABG Base Excess 19.1 H (-2.0-3.0) mmol/L Lauro Test POSITIVE O2 Delivery Device [place] O2 Liters/Min 2.00 LPM Sodium (135-145) mmol/L Potassium (3.5-4.5) mmol/L Chloride (101-111) mmol/L Carbon Dioxide (21-32) mmol/L Anion Gap (6-13) BUN (6-20) mg/dL Creatinine (0.6-1.3) mg/dL Estimated GFR (MDRD) (>89) Glucose (74-104) mg/dL Calcium (8.5-10.3) mg/dL Phosphorus (2.5-5.0) mg/dL Magnesium (1.7-2.3) mg/dL Iron (50-212) ug/dL TIBC (250-450) ug/dL % Saturation (20-50) % Transferrin (203-362) mg/dL Albumin (3.2-5.5) g/dL Sepsis Event Note (H) - Evaluation Current Stage of Sepsis: Ruled out Assessment/Plan - Problem List (1) Paroxysmal atrial fibrillation with rapid ventricular response Impression: The patient's Cardizem was increased to 240 mg daily yesterday. She is rate controlled today. Still in atrial fibrillation but heart rates are much impr timbo (2) Acute on chronic systolic and diastolic heart failure, NYHA class 3 Impression: She initially received IV Lasix. She has been placed back on her home dose of 40 mg of Lasix daily. She seems to be doing well from a heart failure standpoint. Her acute heart failure exacerbation has resolved (3) Chronic respiratory failure Impression: She is at her baseline oxygen requirement (4) Leukocytosis Impression: Secondary to urinary tract infection. Improved since the time of admission but a little higher than yesterday (5) UTI (urinary tract infection) Impression: The patient's mentation is significantly better today after starting IV Rocephin yesterday. Unfortunately I do not think a urine culture was sent off. Continue IV Rocephin. This is day #2 of treatment (6) Acute metabolic encephalopathy Impression: The patient's mentation is much improved today. This was likely due to underlying urinary tract infection. (7) Moderate aortic stenosis Impression: No issues during this hospitalization (8) Peripheral neuropathy Impression: Continue home dose of Lyrica (9) Vascular dementia Impression: The patient has known vascular dementia. I believe she is approaching her cognitive baseline at this point. Her acute encephalopathy is resolving (10) Moderate major depression Impression: Continue Abilify and Cymbalta (11) Charcot-Gia disease Impression: Supportive care (12) Bedbound Impression: The patient is bedbound at baseline. She was receiving some therapies at the care home facility. Will have Occupational Therapy see her if available (13) Microcytic anemia Impression: She has an iron deficiency anemia. Will give her a dose of IV iron today. (14) Hypokalemia Impression: This was repleted and her level is now normal. Will give an additional dose of p.o. potassium today to try to get her level above 4.0 in light of her atrial fibrillation. (15) Hypomagnesemia Impression: This was repleted yesterday and her level is now normal. Will put her on 400 mg of p.o. magnesium oxide twice daily. I would like to get her magnesium level up above 2 in light of her atrial fibrillation (16) Do not intubate, perform CPR, or defibrillate Impression: Confirmed by the patient's son. Will try to have further discussions with him if I can meet him in the hospital. Disposition: Inpatient hospitalization remains necessary. The patient will be treated for her urinary tract infection today. If she continues to do well she possibly could go back to her facility tomorrow morning Time spent: 35 minutes
[2023-12-05] MEDS: POTASSIUM CHLORIDE 20 MEQ TABLET PO ONE (10:11)
[2023-12-05] MEDS: IRON DEXTRAN 1,000 MG in SODIUM CHLORIDE 0.9% 250 ML IV ONE (10:39)
[2023-12-05] MEDS: ONDANSETRON ODT 4 MG TABLET TL PRN (12:53)
[2023-12-05] MEDS: MAGNESIUM OXIDE 400 MG TABLET PO SCH (17:21)
[2023-12-06 05:23] LABS: BASOPHILS % (AUTO) 0.4 %; EOSINOPHILS # (AUTO) 0.4 10^3/uL (0.0-0.7); EOSINOPHILS % (AUTO) 3.4 %; HCT - HEMATOCRIT 29.3 % (37.0-47.0); HGB - HEMOGLOBIN 8.5 g/dL (12.0-16.0); LYMPHOCYTES # (AUTO) 1.7 10^3/uL (1.5-3.5); LYMPHOCYTES % (AUTO) 15.8 %; MEAN CORPUSCULAR HEMOGLOBIN 23.4 pg (27.0-31.0); MEAN CORPUSCULAR VOLUME 80.7 fL (81.0-99.0); MONOCYTES # (AUTO) 0.7 10^3/uL (0.0-1.0); MONOCYTES % (AUTO) 6.3 %; NEUTROPHILS # (AUTO) 7.8 10^3/uL (1.5-6.6); NEUTROPHILS % (AUTO) 73.6 %; PLT - PLATELET COUNT 318 10^3/uL (130-450); RED BLOOD COUNT 3.63 10^6/uL (4.20-5.40); RED CELL DISTRIBUTION WIDTH 20.8 % (12.0-15.0); WHITE BLOOD COUNT 10.6 x10^3/uL (4.8-10.8)
[2023-12-06 05:32] LABS: ALBUMIN 2.7 g/dL (3.2-5.5); MAGNESIUM 1.9 mg/dL (1.7-2.3); PHOSPHORUS 3.5 mg/dL (2.5-5.0)
[2023-12-06 05:36] LABS: CALCIUM 8.8 mg/dL (8.5-10.3); CREATININE 0.8 mg/dL (0.6-1.3); POTASSIUM 3.9 mmol/L (3.5-4.5)
[2023-12-06 05:42] LABS: PT - PROTHROMBIN TIME 39.8 secs (9.9-12.6)
--- NOTE | 2023-12-06 09:56 | Discharge Plan ---
"Discharge Plan for SNF / [facility] - Discharge Plan And Transition Orders Problem Reviewed?: Yes Disposition: 03 SNF DC/Xfer Condition: Fair Allergies and Adverse Reactions: Allergies Allergy/AdvReac Type Severity Reaction Status Date / Time clindamycin Allergy Unknown Verified 12/03/23 01:23 phenobarbital Allergy Hives Verified 12/03/23 01:23 morphine AdvReac Intermediate Hallucinati Verified 12/03/23 01:23 ons doxycycline AdvReac Nausea Verified 12/03/23 01:23 Plan of Treatment: The patient is on warfarin for anticoagulation. Her INR is supratherapeutic today at 4.0. Her INR goal is 2.0-3.0. Her Coumadin will be held. Would recommend INRs daily until her INR goal has been met. The staff physician will need to place her back on her Coumadin at a lower dose going forward. Assessment: The patient is stable for discharge today. She is awake and alert. Heart is irregular but rate controlled. Lungs are clear but diminished in the lower bases. I believe she is stable for transfer today back to her skilled facility - SNF / ASSISTED Transition Orders Admit to (Facility): [facility] Discharge Diagnosis: 1. Paroxysmal atrial fibrillation with rapid ventricular response Improved with increased dose of Cardizem. She will continue Cardizem CD 240 mg daily. She is rate controlled at the time of discharge 2. Acute on chronic systolic and diastolic congestive heart failure, NYHA class III She initially received IV Lasix. She has been transitioned back to her home dose of 40 mg of p.o. Lasix daily. She is doing well from a heart failure standpoint and currently appears to be euvolemic 3. Chronic respiratory failure She is at her baseline oxygen requirements 4. Leukocytosis due to urinary tract infection. Will transition her over to cefdinir at discharge to complete a 1 week course of therapy 5. Acute metabolic encephalopathy Secondary to urinary tract infection. Much improved 6. Moderate aortic stenosis No issues during this hospitalization 7. Peripheral neuropathy She will continue her home dose of Lyrica 8. Vascular dementia She is back to her cognitive baseline. Her acute encephalopathy is resolved 9. Moderate major depression Stable. Continue Abilify and Cymbalta 10. Charcot Gia disease Supportive care 11. Bedbound She is bedbound at baseline. She should receive some occupational therapy at the senior care facility 12. Microcytic anemia She has iron deficiency anemia. She received a dose of IV iron. Will send her out on iron supplementation 13. Hypokalemia Repleted and resolved 14. Hypomagnesemia Repleted and resolved. Continue p.o. magnesium supplementation 15. DO NOT INTUBATE Family would like CPR and defibrillation if necessary. They do not want her intubated. Medicare Certification Statement: I certify that [facility] care is medically necessary on a continuing basis for any of the conditions for which she/he is receiving care during hospitalization. Notify PCP of admission and forward orders to primary provider for signature. Other Notification Orders: Call PCP immediately if patient develops dyspnea, chest pain/tightness or edema. House Bowel Program: Yes Additional Bowel Program Orders: If no BM after 2 days, nurse may give M.O.M. 30ml PO PRN and/or ducolax Supp 1 SD and/or CARMELO 250mg P.O., and/or senna 1-2 tabs PO. On day 3 nurse may give repeat above order until residents constipation is resolved. Annual Influenza Vaccine (between Dec 18 and July 17): Yes Oxygen Orders: O2 at 2L via [place]. Titrate to keep O2 > 92% Medication Orders: PLEASE REFER TO THE DISCHARGE MEDICATION LIST. Insulin Orders?: No - Medications New Prescriptions: Cefdinir 300 mg PO BID #14 cap Ferrous Sulfate 325 mg PO BID #60 tab HYDROcod/ACETAM 5/325 [[place] 5/325] 0.5 ea PO TID #6 tab - Diet Type: Geriatric Texture: Regular Liquids: Thin May have monthly special meal: Yes - Therapies | Activity Therapy: Evaluation | Treat if indicated: OT Rehabilitation Potential: Maintain present ADL Functional Activity: Activity as Tolerated Additional Instructions: Please make sure that the patient's INR is rechecked daily until her INR drops back into the normal range. INR goal is 2.0-3.0 Follow Up: The patient should follow-up with the staff MD in 1 week. The patient will need an INR daily until her INR drops back within the normal range. Coumadin dosing will need to be adjusted by the staff physician"
--- NOTE | 2023-12-06 10:24 | DISCHARGE SUMMARY ---
Discharge Summary Admit Date: 12/03/23 Discharge Date: 12/06/23 Discharging Provider: Gardenia Lind PA-C Primary Care Provider: Staff at [facility] Code Status: Attempt Resuscitation Condition at Discharge: Fair Discharge Disposition: SNF DC/Xfer Discharge Facility Name: [facility] - DIAGNOSES Discharge Diagnoses with Status of Each Condition: 1. Paroxysmal atrial fibrillation with rapid ventricular response Improved with increased dose of Cardizem. She will continue Cardizem CD 240 mg daily. She is rate controlled at the time of discharge 2. Acute on chronic systolic and diastolic congestive heart failure, NYHA class III She initially received IV Lasix. She has been transitioned back to her home dose of 40 mg of p.o. Lasix daily. She is doing well from a heart failure standpoint and currently appears to be euvolemic 3. Chronic respiratory failure She is at her baseline oxygen requirements 4. Leukocytosis due to urinary tract infection. Will transition her over to cefdinir at discharge to complete a 1 week course of therapy 5. Acute metabolic encephalopathy Secondary to urinary tract infection. Much improved 6. Moderate aortic stenosis No issues during this hospitalization 7. Peripheral neuropathy She will continue her home dose of Lyrica 8. Vascular dementia She is back to her cognitive baseline. Her acute encephalopathy is resolved 9. Moderate major depression Stable. Continue Abilify and Cymbalta 10. Charcot Gia disease Supportive care 11. Bedbound She is bedbound at baseline. She should receive some occupational therapy at the correction facility 12. Microcytic anemia She has iron deficiency anemia. She received a dose of IV iron. Will send her out on iron supplementation 13. Hypokalemia Repleted and resolved 14. Hypomagnesemia Repleted and resolved. Continue p.o. magnesium supplementation 15. DO NOT INTUBATE Family would like CPR and defibrillation if necessary. They do not want her intubated. - HPI History of Present Illness: From the admission HP: The patient is a 72-year-old obese female who resides at a local correction facility. Her past medical history is significant for chronic respiratory failure main with biventricular heart failure and moderate aortic stenosis. In addition she has paroxysmal atrial fibrillation and rather advanced dementia. She is bedbound at baseline. She has known severe peripheral neuropathy. The patient was brought to the emergency room with altered mental status. When she arrived at the emergency room she was in sinus tachycardia with rates in the 150s. Chest x-ray was rather unrevealing. She was recently treated for pneumonia and discharged about a week ago. There was some concerns for a possible infiltrate and she was given IV vancomycin and Zosyn in the emergency room. When I went to see her there was no family members at the bedside. The patient is alert and oriented x 1 although she is able to speak to me. Review of systems could not be obtained due to her baseline confusion. - HOSPITAL COURSE Hospital Course: The patient was admitted to the hospital. She was extremely lethargic and confused. She was above her baseline oxygen requirements. She was found to have signs of volume overload and she was diuresed with IV Lasix with improvement. The patient had a mild leukocytosis and initial urine appeared to be infected. Unfortunately it was not sent for culture. The patient was placed on IV Rocephin and she quickly began to improve. On the day of discharge the patient is awake and alert and answers questions fairly appropriately. She is back to her cognitive baseline. It is felt that she can safely be discharged back to her facility today. She will complete a course of antibiotic therapy with cefdinir. Of note the patient was found to have a supratherapeutic INR. INR on the day of discharge is 4.0. I am holding her warfarin at discharge. Her INR goal is 2.0-3.0. She should receive daily INRs until her INR drops back within range. The staff MD the should resume her warfarin at that time at 1 mg daily. Again, she will need daily INRs until her INR goal is 2.0-3.0. Then her warfarin should be resumed at 1 mg daily Otherwise the patient is doing well. She is stable for discharge back to her facility today. I have spoken to the patient's son who is in agreement with this plan. - ALLERGIES Allergies/Adverse Reactions: Allergies Allergy/AdvReac Type Severity Reaction Status Date / Time clindamycin Allergy Unknown Verified 12/03/23 01:23 phenobarbital Allergy Hives Verified 12/03/23 01:23 morphine AdvReac Intermediate Hallucinati Verified 12/03/23 01:23 ons doxycycline AdvReac Nausea Verified 12/03/23 01:23 - MEDICATIONS Home Medications: Ambulatory Orders Medication Instructions Recorded Confirmed Duloxetine HCl [Cymbalta] 60 mg PO DAILY 07/19/20 12/03/23 Solifenacin Succinate [Vesicare] 5 mg PO DAILY 07/19/20 12/03/23 Acetaminophen [Tylenol] 650 mg PO Q6H PRN 11/05/23 12/03/23 Pregabalin [Lyrica] 100 mg PO TID 11/05/23 12/03/23 Atorvastatin Calcium [Lipitor] 80 mg PO QPM #30 tab 11/08/23 12/03/23 Cetirizine HCl [Allergy Relief] 5 mg PO DAILY #0 11/08/23 12/03/23 Furosemide [Lasix] 20 mg PO DAILY #30 tab 11/08/23 12/03/23 Pantoprazole [Protonix] 40 mg PO BID #0 11/08/23 12/03/23 Warfarin [Coumadin] 1 mg PO MOFR #0 11/08/23 12/03/23 Potassium Chloride [Micro-K] 10 meq PO DAILY 11/24/23 12/03/23 Tizanidine HCl 2 mg PO Q12H PRN 11/24/23 12/03/23 Ondansetron Odt [Zofran Odt] 4 mg TL Q6H PRN 12/03/23 12/03/23 ARIPiprazole [Abilify] 10 mg PO QPM tab 12/06/23 Cefdinir 300 mg PO BID #14 cap 12/06/23 Ferrous Sulfate 325 mg PO BID #60 tab 12/06/23 HYDROcod/ACETAM 5/325 [[place] 5/325] 0.5 ea PO TID #6 tab 12/06/23 Magnesium Oxide [Mag Ox] 400 mg PO BIDWM tab 12/06/23 Zinc Oxide 20% Oint [Zinc Oxide] 1 applic TOP PRN PRN each 12/06/23 diltiaZEM CD [Cardizem Cd] 240 mg PO DAILY cap 12/06/23 - PHYSICAL EXAM AT DISCHARGE General Appearance: positive: No acute distress, Other (Pleasantly confused) Eyes Bilateral: positive: Normal inspection ENT: positive: ENT inspection nml Neck: positive: Nml inspection Respiratory: positive: Chest non-tender, Other (Lungs sound clear but diminished in the lower bases bilaterally) Cardiovascular: positive: Irregularly irregular (But rate controlled) Abdomen: positive: Non-tender, No organomegaly, Nml bowel sounds, No distention Skin: positive: Color nml, No rash, Warm, Dry Extremities: positive: Pedal edema Neurologic/Psychiatric: positive: CN's nml (2-12), Disoriented to time - LABS Result Diagrams: 12/06/23 04:41 12/06/23 04:41 - SEPSIS Current Stage of Sepsis: Ruled out - FOLLOW UP Follow Up: The patient should have daily INRs until her INR drops with the range of 2.0- 3.0. Staff MD should see her within 1 week. Coumadin should be resumed at 1 mg daily once her INR is within range - TIME SPENT Time Spent in Discharge (Minutes): 45
[2023-12-06 12:26] VITALS: BP 144/66; O2SAT 92
== END 2023-12-06 13:30 ==
LOC: EDUNIT# → ED 01:15 → MS2 13:36
PROVIDERS: ADMIT Physician Assistant; ATTEND Physician Assistant
DX: I48.0 Paroxysmal atrial fibrillation (principal); I11.0 Hypertensive heart disease with heart failure; I50.33 Acute on chronic diastolic (congestive) heart failure; J96.12 Chronic respiratory failure with hypercapnia; J96.11 Chronic respiratory failure with hypoxia; G93.41 Metabolic encephalopathy; I35.0 Nonrheumatic aortic (valve) stenosis; E66.9 Obesity, unspecified; F01.50 Vascular dementia, unspecified severity, without behavioral disturbance, psychotic disturbance, mood disturbance, and anxiety; Z68.36 Body mass index [BMI] 36.0-36.9, adult; N39.0 Urinary tract infection, site not specified; F32.9 Major depressive disorder, single episode, unspecified; G60.0 Hereditary motor and sensory neuropathy; Z74.01 Bed confinement status; D50.9 Iron deficiency anemia, unspecified; E87.6 Hypokalemia; E83.42 Hypomagnesemia; R79.1 Abnormal coagulation profile; Z79.01 Long term (current) use of anticoagulants; I25.10 Atherosclerotic heart disease of native coronary artery without angina pectoris; E11.42 Type 2 diabetes mellitus with diabetic polyneuropathy; Z87.01 Personal history of pneumonia (recurrent)
CPT/HCPCS: 36415; 36600; 71045; 80053; 80069; 81001; 82803; 83540; 83690; 83735; 83880; 84145; 84466; 84484; 85025; 85610; 87493; 93005; 96365; 96366; 96367; 96368; 96375; 99285; A9270; G0378; J1750; J3370; Q0162; 81003; 87086

== ENCOUNTER 2023-12-06 13:34 | Outpatient (CLI) | payer MEDICARE, BC | END 2023-12-06 23:59 | LOC: EMS 13:34 | PROVIDERS: ATTEND Physician Assistant | DX: Z74.01 Bed confinement status (principal); F01.50 Vascular dementia, unspecified severity, without behavioral disturbance, psychotic disturbance, mood disturbance, and anxiety; N39.0 Urinary tract infection, site not specified | CPT/HCPCS: A0425; A0428 ==

== ENCOUNTER 2024-04-10 14:09 | Inpatient (IN) ==
[2024-04-10] MEDS ORDERED: iohexoL-300 100 ML VIAL ONE (14:35)
[2024-04-10 14:49] LABS: BASOPHILS # (AUTO) 0.1 10^3/uL (0.0-0.1); BASOPHILS % (AUTO) 0.3 %; EOSINOPHILS # (AUTO) 0.2 10^3/uL (0.0-0.7); EOSINOPHILS % (AUTO) 1.4 %; HGB - HEMOGLOBIN 8.5 g/dL (12.0-16.0); LYMPHOCYTES # (AUTO) 1.8 10^3/uL (1.5-3.5); LYMPHOCYTES % (AUTO) 12.7 %; MEAN CORPUSCULAR HEMOGLOBIN 26.3 pg (27.0-31.0); MEAN CORPUSCULAR HGB CONC 29.3 g/dL (32.0-36.0); MEAN CORPUSCULAR VOLUME 89.8 fL (81.0-99.0); MEAN PLATELET VOLUME 11.5 fL (7.9-10.8); MONOCYTES # (AUTO) 1.1 10^3/uL (0.0-1.0); MONOCYTES % (AUTO) 7.6 %; NEUTROPHILS # (AUTO) 11.2 10^3/uL (1.5-6.6); NEUTROPHILS % (AUTO) 77.4 %; PLT - PLATELET COUNT 290 10^3/uL (130-450); RED BLOOD COUNT 3.23 10^6/uL (4.20-5.40); WHITE BLOOD COUNT 14.5 x10^3/uL (4.8-10.8)
[2024-04-10 15:18] LABS: ALBUMIN 2.5 g/dL (3.2-5.5); ALBUMIN/GLOBULIN RATIO 0.5 (1.0-2.2); BILIRUBIN,TOTAL 0.6 mg/dL (0.2-1.0); CALCIUM 8.7 mg/dL (8.5-10.3); CREATININE 2.2 mg/dL (0.6-1.3); POTASSIUM 5.2 mmol/L (3.5-4.5); TOTAL PROTEIN 7.5 g/dL (6.4-8.9)
--- NOTE | 2024-04-10 15:32 | ED Physician Documentation ---
History of Present Illness Stated complaint Stated Complaint: FACIAL SWELLING Chief complaint Chief Complaint: Heent History obtained from History obtained from: Patient History of Present Illness Timing: Prior to arrival Additonal information Additional information: Patient is a 73-year-old female with past medical history of type 2 diabetes history of COPD on 2 L oxygen baseline presents to the emergency department with left facial swelling. She notes symptoms have been going on for few days but apparently swelling was noticed by staff today she has severe pain to her left side of her mouth. Patient is edentulous and has bad oral dentition. She notes no difficulty swallowing she appears to be handling her secretions well. No muffled voice on examination Meds/Allgy Home Medications Ambulatory Orders Medication Instructions Recorded Confirmed duloxetine 60 mg capsule,delayed 60 mg PO DAILY 07/19/20 04/10/24 release (Cymbalta) solifenacin 10 mg tablet (Vesicare) 5 mg PO DAILY 07/19/20 04/10/24 acetaminophen 325 mg tablet 650 mg PO Q6H PRN PRN PAIN &/OR 11/05/23 04/10/24 FEVER pregabalin 100 mg capsule 100 mg PO TID 11/05/23 04/10/24 atorvastatin 80 mg tablet (Lipitor) 80 mg PO QPM hyperlipidemia #30 11/08/23 04/10/24 tabs cetirizine 5 mg tablet (Allergy 5 mg PO DAILY allergic rhinitis 11/08/23 04/10/24 Relief (cetirizine)) ##0 furosemide 20 mg tablet 20 mg PO DAILY chronic congestive 11/08/23 04/10/24 heart failure #30 tabs potassium chloride 10 mEq 10 meq PO DAILY 11/24/23 04/10/24 capsule,extended release tizanidine 2 mg tablet 2 mg PO Q12H PRN Spasms 11/24/23 04/10/24 ondansetron 4 mg disintegrating 4 mg translingual Q6H PRN Nausea / 12/03/23 04/10/24 tablet Vomiting aripiprazole 5 mg tablet 10 mg (2 x 5 mg) PO QPM 12/06/23 04/10/24 diltiazem HCl 240 mg 240 mg PO DAILY 12/06/23 04/10/24 capsule,extended release 24 hr ferrous sulfate 325 mg (65 mg 325 mg PO BID #60 tabs 12/06/23 04/10/24 iron) tablet,delayed release hydrocodone 5 mg-acetaminophen 325 0.5 ea PO TID chronic pain #6 tabs 12/06/23 04/10/24 mg tablet magnesium oxide 400 mg (241.3 mg 400 mg PO BIDWM 12/06/23 04/10/24 magnesium) tablet zinc oxide 20 % topical ointment 1 applic topical PRN PRN Skin Care 12/06/23 pantoprazole 40 mg tablet,delayed See Rx Instructions .Route 01/27/24 04/10/24 release .COMPLEX #30 tabs apixaban 2.5 mg tablet (Eliquis) 2.5 mg PO BID 04/10/24 04/10/24 sennosides 8.6 mg capsule (senna) 8.6 mg PO DAILY 04/10/24 04/10/24 Allergies Allergies Allergy/AdvReac Type Severity Reaction Status Date / Time clindamycin Allergy Unknown Verified 04/10/24 14:40 phenobarbital Allergy Hives Verified 04/10/24 14:40 morphine AdvReac Intermediate Hallucinati Verified 04/10/24 14:40 ons doxycycline AdvReac Nausea Verified 04/10/24 14:40 PFSH Social History Social History Smoking Status: Former smoker If you are a former smoker, when did you quit? (Date/Year): 1989 Number of Years Smoked: 18 How many cigarettes a day do you smoke? (20 cigarettes=1 Pk): 10 Do you dip or chew tobacco?: No Do you vape?: No Patient requests smoking cessation consult: No Initiate information on smoking cessation: No Living arrangement: Assisted living Living Condition: With family Relationship: Level: Dependent Home Mobility Equipment: Wheelchair Do you feel safe in your home environment?: Yes Suffered physical, verbal, emotional, or financial abuse?: No History of Abuse: No POLST Patient has POLST: Yes POLST Status: Full Code Exam Constitutional Patient appears in no acute distress on arrival large body habitus with large neck on arrival HENMT Significant left-sided facial swelling with erythema extending from left side of face down to neck. Body habitus makes exam difficult I do not palpate any crepitus but there is induration significant to left maxillary region.Oropharynx is clear. Patient handling secretions well no sublingual tongue swelling or tongue swelling. No fluctuance only palpable induration to the left side of face. Neck/C-Spine Swelling noted to lower neck no extension down to the chest full range of motion does appear supple no meningeal signs Lymph Lymphadenopathy appreciated Chest inspection of chest normal Respiratory breath sounds equal bilaterally, normal respiratory effort and clear to auscultation bilaterally Cardiovascular normal heart rate noted, regular rhythm noted, no gallop and no rub Gastrointestinal abdomen normal to inspection Genitourinary no CVA tenderness Back/Pelvis spine normal to inspection Skin skin color normal, no rash and no lesions Results Vitals Vitals: Vital Signs - 24 hr 04/10/24 14:34 04/10/24 14:39 04/10/24 14:40 Temperature 36.6 C Temperature Source Pulse Rate 117 H 106 H Respiratory Rate 17 16 Blood Pressure 138/62 H 143/106 H O2 Saturation 97 98 Oxygen Delivery Method Nasal Cannula O2 Source Room air Room air Oxygen Flow Rate 2 Pain Intensity 3 0 04/10/24 16:39 04/10/24 18:00 Temperature Temperature Source Temporal Artery Scan Pulse Rate 99 96 Respiratory Rate 16 16 Blood Pressure 140/99 H 169/75 H O2 Saturation 98 98 Oxygen Delivery Method O2 Source Room air Room air Oxygen Flow Rate Pain Intensity 0 0 Oxygen O2 Source Room air Oxygen Flow Rate 2 Labs Labs: Laboratory Tests 04/10/24 04/10/24 14:44 16:00 WBC 14.5 H RBC 3.23 L Hgb 8.5 L Hct 29.0 L MCV 89.8 MCH 26.3 L MCHC 29.3 L RDW 16.0 H Plt Count 290 MPV 11.5 H Neut # (Auto) 11.2 H Lymph # (Auto) 1.8 [place] # (Auto) 1.1 H Eos # (Auto) 0.2 Baso # (Auto) 0.1 Absolute Nucleated RBC 0.00 Nucleated RBC % 0.0 Sodium 138 Potassium 5.2 H Chloride 98 L Carbon Dioxide 35 H Anion Gap 5.0 L BUN 54 H Creatinine 2.2 H Estimated GFR (MDRD) 22 L Glucose 95 Estimat Average Glucose 117 H Hemoglobin A1c % 5.7 Lactic Acid 0.8 Calcium 8.7 Total Bilirubin 0.6 AST 12 ALT 6 L Alkaline Phosphatase 117 Total Protein 7.5 Albumin 2.5 L Globulin 5.0 H Albumin/Globulin Ratio 0.5 L Triglycerides 81 Cholesterol 80 LDL Cholesterol, Calc 32 VLDL Cholesterol 16 HDL Cholesterol 32 L LDL/HDL Ratio 1.0 Cholesterol/HDL Ratio 2.5 TSH 0.30 L Rads (name of study) CT maxillofacial surgeon: Relevant Findings:: EMP independent interpretation of test PD Medical Decision Making ED course ED course: Patient is a 73-year-old female presenting with left-sided facial swelling and pain patient is unsure how long symptoms have been going on. She is on 2 L nasal cannula at baseline has poor dental health and is independent most of her baseline as well. She comes from [facility] over after noticing facial swelling and redness that started a few days ago and worsened today. Patient notes significant pain to left side of her face and goes down to her throat. No sublingual swelling oropharynx appears clear she does have palpable induration to the left side of face no significant subl mandibular tenderness on exam. Soft to touch no crepitus appreciated. Labs here in the emergency department do show a leukocytosis of 14. Concern for sepsis here in the ED given tachycardia and signs of infection with elevated white count to 14 as well. Patient started on Unasyn on this finding right away. CMP is concerning as well as he she has significant JP baseline closer to 0.8 but today 2.2.Given significant elevated creatinine cannot for CT maxillofacial CT scan with contrast will do without here in the ED.Patient reevaluated she continues to handle secretions swelling still apparent but no worsening no crepitus and no muffled voice CT without contrast does show: Enlargement of the left-sided parotid gland, with superimposed skin thickening and subcutaneous fat stranding at the left base. No abscess identified. Findings may indicate parotiditis. Enlarged, heterogeneous thyroid consistent with thyroiditis. I discussed with on-call maxillofacial surgeon Dr. Medina who will evaluate patient here in the ED tonight he recommends adding on vancomycin on top of Unasyn given concerns for infection and parotitis an elderly female with history of type 2 diabetes. He is agreeable with this plan patient will be admitted to hospitalist here in the ED. I I discussed case with hospitalist who is agreeable with this plan. Recommendations for close monitoring and he will continue with antibiotics as recommended by Dr. Medina. Patient remains n.p.o. at this time at recommendations of maxillofacial surgeon. Discharge Plan Discharge Patient Disposition: [facility] DC/Xfer Condition: Good Clinical Impression: Left facial swelling Interventions: ED Admission Assessment Last Done: 04/10/24 20:51
[2024-04-10] MEDS: LACTATED RINGERS 1,000 ML IV STA (16:15)
[2024-04-10] MEDS: AMPICILLIN/SULBACTAM 3 GM in SODIUM CHLORIDE 0.9% MINIBAG 100 ML IV STA (16:15)
--- NOTE | 2024-04-10 18:21 | CT Report ---
PROCEDURE: CT Maxillofacial WO INDICATIONS: left facial swelling TECHNIQUE: Noncontrast 1.5 mm thick axial images acquired from the mandible through the frontal sinuses, with co darron and sagittal reformatting. For radiation dose reduction, the following was used: automated ex posure control, adjustment of mA and/or kV according to patient size. COMPARISON: None. FINDINGS: Image quality: Excellent. Bones and teeth: Orbital baugh are intact. Sinus baugh show no fracture or deformity. Nasal bones and septum are intact. Visualized portions of the mandible demonstrate no fractures or subluxation. Zygomatic arches are intact. Pterygoid plates are intact. Visualized portions of the skull base an d auditory canals are intact. Sinuses: Paranasal sinuses are aerated, without fluid levels, mucosal thickening, or mucoceles. Mas toid air cells are aerated. Soft tissues: Enlargement of the left-sided parotid gland, with superimposed skin thickening and subc utaneous fat stranding at the left base. No abscess identified. Reactive cervical chain lymph nodes. No soft tissue lacerations or debris. Thyroid is enlarged, containing coarse calcifications. Vascular: Visualized vascular structures appear normal in the absence of contrast. Bony vascular fo ramina and canals are intact. IMPRESSION: Enlargement of the left-sided parotid gland, with superimposed skin thickening and subcutaneous fat s tranding at the left base. No abscess identified. Findings may indicate parotiditis. Enlarged, heterogeneous thyroid consistent with thyroiditis. Reviewed by: Caleb Vasquez MD on 04/10/2024 6:20 PM [facility] Approved by: Caleb Vasquez MD on 04/10/2024 6:20 PM PST Station ID: [id number]
[2024-04-10] MEDS ORDERED: VANCOMYCIN 1 GM VIAL ONE (20:13)
--- NOTE | 2024-04-10 20:24 | HISTORY & PHYSICAL EXAMINATION ---
Chief Complaint Chief Complaint Chief Complaint: L facial swelling + redness x 1 wk History of Present Illness History of Present Illness HPI Comment/Other: pt with L facial swelling + redness x 1 wk, per her recollection. not able to fully recall all details but denies any trauma to face. no fevers but has had chills. no sob. on chronic O2 via [place] d/t h/o copd. stays in [place]. no falls. no ams but has h/o dementia. pt able to provide hx with repeated, simple questions. no abd pain. no n/v/d. no dysuria or hematuria. Review of Systems Status of ROS: 10 or more systems reviewed and unremarkable except as noted in history and below PFSH Social History Social History Smoking Status: Former smoker If you are a former smoker, when did you quit? (Date/Year): 1989 Number of Years Smoked: 18 How many cigarettes a day do you smoke? (20 cigarettes=1 Pk): 10 Do you dip or chew tobacco?: No Do you vape?: No Patient requests smoking cessation consult: No Initiate information on smoking cessation: No Living arrangement: Assisted living Living Condition: With family Relationship: Level: Dependent Home Mobility Equipment: Lift Do you feel safe in your home environment?: Yes Suffered physical, verbal, emotional, or financial abuse?: No History of Abuse: No POLST Patient has POLST: Yes POLST Status: Full Code Meds/Allgy Home Medications Ambulatory Orders Medication Instructions Recorded Confirmed duloxetine 60 mg capsule,delayed 60 mg PO DAILY 07/19/20 04/10/24 release (Cymbalta) solifenacin 10 mg tablet (Vesicare) 5 mg PO DAILY 07/19/20 04/10/24 acetaminophen 325 mg tablet 650 mg PO Q6H PRN PRN PAIN &/OR 11/05/23 04/10/24 FEVER pregabalin 100 mg capsule 100 mg PO TID 11/05/23 04/10/24 atorvastatin 80 mg tablet (Lipitor) 80 mg PO QPM hyperlipidemia #30 11/08/23 04/10/24 tabs cetirizine 5 mg tablet (Allergy 5 mg PO DAILY allergic rhinitis 11/08/23 04/10/24 Relief (cetirizine)) ##0 furosemide 20 mg tablet 20 mg PO DAILY chronic congestive 11/08/23 04/10/24 heart failure #30 tabs potassium chloride 10 mEq 10 meq PO DAILY 11/24/23 04/10/24 capsule,extended release tizanidine 2 mg tablet 2 mg PO Q12H PRN Spasms 11/24/23 04/10/24 ondansetron 4 mg disintegrating 4 mg translingual Q6H PRN Nausea / 12/03/23 04/10/24 tablet Vomiting aripiprazole 5 mg tablet 10 mg (2 x 5 mg) PO QPM 12/06/23 04/10/24 diltiazem HCl 240 mg 240 mg PO DAILY 12/06/23 04/10/24 capsule,extended release 24 hr ferrous sulfate 325 mg (65 mg 325 mg PO BID #60 tabs 12/06/23 04/10/24 iron) tablet,delayed release hydrocodone 5 mg-acetaminophen 325 0.5 ea PO TID chronic pain #6 tabs 12/06/23 04/10/24 mg tablet magnesium oxide 400 mg (241.3 mg 400 mg PO BIDWM 12/06/23 04/10/24 magnesium) tablet zinc oxide 20 % topical ointment 1 applic topical PRN PRN Skin Care 12/06/23 pantoprazole 40 mg tablet,delayed See Rx Instructions .Route 01/27/24 04/10/24 release .COMPLEX #30 tabs apixaban 2.5 mg tablet (Eliquis) 2.5 mg PO BID 04/10/24 04/10/24 sennosides 8.6 mg capsule (senna) 8.6 mg PO DAILY 04/10/24 04/10/24 Allergies Allergies Allergy/AdvReac Type Severity Reaction Status Date / Time clindamycin Allergy Unknown Verified 04/10/24 14:40 phenobarbital Allergy Hives Verified 04/10/24 14:40 morphine AdvReac Intermediate Hallucinati Verified 04/10/24 14:40 ons doxycycline AdvReac Nausea Verified 04/10/24 14:40 Exam Constitutional no apparent distress HENMT L facial swelling extending down to neck with erythema noted. no obvious movement difficulty or trauma noted. pt able to swallow and speak without trouble. dry mouth. edentulous Eyes EOMs intact bilaterally Chest inspection of chest normal Respiratory no use of accessory muscles full details per ed charting Cardiovascular details per ed charting Gastrointestinal nondistended Conclusion/Plan Problem List (1) Left facial swelling: Plan pt with - - facial cellulitis in setting of L parotitis, per oral surgery evaluation further complicated by angular cheilitis on vanc + unasyn, with nystatin and peridex also recommended by oral surgery no resp distress and no dysphagia or odynophagia appreciate recommendations from oral surgery - desmond likely d/t decreased po intake + infection above hypertensive nephropathy check renal us, continue bp meds pt received ivf in ed continue diuretic d/t h/o chf, but with cautious monitoring of renal function - long-term anticoagulation h/o TIA continue with eliquis - elevated bp in setting of above continue home bp meds f/u labs, cultures, monitor electrolytes further orders per clinical course Lab Results 04/10/24 14:44 04/10/24 14:44
[2024-04-10 21:00] LABS: CHOL/HDL RATIO 2.5 (<4.4); CHOLESTEROL 80 mg/dL; HDL CHOLESTEROL 32 mg/dL; LDL CHOLESTEROL,CALCULATED 32 mg/dL; TRIGLYCERIDES 81 mg/dL; VLDL CHOLESTEROL 16 mg/dL
[2024-04-10 21:04] LABS: ESTIMATED AVERAGE GLUCOSE 117 mg/dL (70-100); HEMOGLOBIN A1c% 5.7 % (4.27-6.07)
[2024-04-10] MEDS: AMPICILLIN/SULBACTAM 1.5 GM in SODIUM CHLORIDE 0.9% MINIBAG 100 ML IV SCH (21:22)
[2024-04-10] MEDS: VANCOMYCIN INJ 2 GM in SODIUM CHLORIDE 0.9% 500 ML IV ONE (21:22)
[2024-04-10] MEDS: APIXABAN 2.5 MG TABLET PO SCH (21:23)
[2024-04-10] MEDS: ATORVASTATIN 40 MG TABLET PO SCH (21:23)
[2024-04-10] MEDS: FERROUS SULFATE 325 MG TABLET PO SCH (21:23)
[2024-04-10] MEDS: ARIPiprazole 5 MG TABLET PO SCH (21:23)
[2024-04-10] MEDS: PANTOPRAZOLE 40 MG TABLET PO SCH (21:23)
--- NOTE | 2024-04-10 22:02 | CONSULTATION NOTE ---
Chief Complaint Chief Complaint Chief Complaint: Facial Pain History of Present Illness Admitted From Admitted From:: ER History Obtained From Exam Limitations: Unable to answer questions about her condition and history History of Present Illness HPI Comment/Other: Brought from a care facility to the ER today with facial swelling. ER found her to have indurated cellulitis of the L parotid area. She also had JP and Leukocytosis.Because of the JP she could not have a contrast CT but she did have a noncontrast maxillofacial CT. There was no drainable abscess but there was significant cellulitis and fat stranding of the skin overlying the left parotid gland which was significantly inflamed. It was read as probable left parotitis.OMFS was consulted for evaluation of the parotitis PFSH Social History Social History Smoking Status: Former smoker If you are a former smoker, when did you quit? (Date/Year): 1989 Number of Years Smoked: 18 How many cigarettes a day do you smoke? (20 cigarettes=1 Pk): 10 Do you dip or chew tobacco?: No Do you vape?: No Patient requests smoking cessation consult: No Initiate information on smoking cessation: No Living arrangement: Assisted living Living Condition: With family Relationship: Level: Dependent Home Mobility Equipment: Wheelchair Do you feel safe in your home environment?: Yes Suffered physical, verbal, emotional, or financial abuse?: No History of Abuse: No POLST Patient has POLST: Yes POLST Status: Full Code Meds/Allgy Home Medications Ambulatory Orders Medication Instructions Recorded Confirmed duloxetine 60 mg capsule,delayed 60 mg PO DAILY 07/19/20 04/10/24 release (Cymbalta) solifenacin 10 mg tablet (Vesicare) 5 mg PO DAILY 07/19/20 04/10/24 acetaminophen 325 mg tablet 650 mg PO Q6H PRN PRN PAIN &/OR 11/05/23 04/10/24 FEVER pregabalin 100 mg capsule 100 mg PO TID 11/05/23 04/10/24 atorvastatin 80 mg tablet (Lipitor) 80 mg PO QPM hyperlipidemia #30 11/08/23 04/10/24 tabs cetirizine 5 mg tablet (Allergy 5 mg PO DAILY allergic rhinitis 11/08/23 04/10/24 Relief (cetirizine)) ##0 furosemide 20 mg tablet 20 mg PO DAILY chronic congestive 11/08/23 04/10/24 heart failure #30 tabs potassium chloride 10 mEq 10 meq PO DAILY 11/24/23 04/10/24 capsule,extended release tizanidine 2 mg tablet 2 mg PO Q12H PRN Spasms 11/24/23 04/10/24 ondansetron 4 mg disintegrating 4 mg translingual Q6H PRN Nausea / 12/03/23 04/10/24 tablet Vomiting aripiprazole 5 mg tablet 10 mg (2 x 5 mg) PO QPM 12/06/23 04/10/24 diltiazem HCl 240 mg 240 mg PO DAILY 12/06/23 04/10/24 capsule,extended release 24 hr ferrous sulfate 325 mg (65 mg 325 mg PO BID #60 tabs 12/06/23 04/10/24 iron) tablet,delayed release hydrocodone 5 mg-acetaminophen 325 0.5 ea PO TID chronic pain #6 tabs 12/06/23 04/10/24 mg tablet magnesium oxide 400 mg (241.3 mg 400 mg PO BIDWM 12/06/23 04/10/24 magnesium) tablet zinc oxide 20 % topical ointment 1 applic topical PRN PRN Skin Care 12/06/23 pantoprazole 40 mg tablet,delayed See Rx Instructions .Route 01/27/24 04/10/24 release .COMPLEX #30 tabs apixaban 2.5 mg tablet (Eliquis) 2.5 mg PO BID 04/10/24 04/10/24 sennosides 8.6 mg capsule (senna) 8.6 mg PO DAILY 04/10/24 04/10/24 Allergies Allergies Allergy/AdvReac Type Severity Reaction Status Date / Time clindamycin Allergy Unknown Verified 04/10/24 14:40 phenobarbital Allergy Hives Verified 04/10/24 14:40 morphine AdvReac Intermediate Hallucinati Verified 04/10/24 14:40 ons doxycycline AdvReac Nausea Verified 04/10/24 14:40 Results Lab Results 04/10/24 14:44 04/10/24 14:44 Other Lab Results: Lab Results x24hrs 04/10/24 04/10/24 Range/Units 16:00 14:44 WBC 14.5 H (4.8-10.8) x10^3/uL RBC 3.23 L (4.20-5.40) 10^6/uL Hgb 8.5 L (12.0-16.0) g/dL Hct 29.0 L (37.0-47.0) % MCV 89.8 (81.0-99.0) fL MCH 26.3 L (27.0-31.0) pg MCHC 29.3 L (32.0-36.0) g/dL RDW 16.0 H (12.0-15.0) % Plt Count 290 (130-450) 10^3/uL MPV 11.5 H (7.9-10.8) fL Neut # (Auto) 11.2 H (1.5-6.6) 10^3/uL Lymph # (Auto) 1.8 (1.5-3.5) 10^3/uL [place] # (Auto) 1.1 H (0.0-1.0) 10^3/uL Eos # (Auto) 0.2 (0.0-0.7) 10^3/uL Baso # (Auto) 0.1 (0.0-0.1) 10^3/uL Absolute Nucleated RBC 0.00 x10^3/uL Nucleated RBC % 0.0 /100WBC Sodium 138 (135-145) mmol/L Potassium 5.2 H (3.5-4.5) mmol/L Chloride 98 L (101-111) mmol/L Carbon Dioxide 35 H (21-32) mmol/L Anion Gap 5.0 L (6-13) BUN 54 H (6-20) mg/dL Creatinine 2.2 H (0.6-1.3) mg/dL Estimated GFR (MDRD) 22 L (>89) Glucose 95 (74-104) mg/dL Estimat Average Glucose 117 H (70-100) mg/dL Hemoglobin A1c % 5.7 (4.27-6.07) % Lactic Acid 0.8 (0.5-2.2) mmol/L Calcium 8.7 (8.5-10.3) mg/dL Total Bilirubin 0.6 (0.2-1.0) mg/dL AST 12 (10-42) IU/L ALT 6 L (10-60) IU/L Alkaline Phosphatase 117 (42-121) IU/L Total Protein 7.5 (6.4-8.9) g/dL Albumin 2.5 L (3.2-5.5) g/dL Globulin 5.0 H (2.1-4.2) g/dL Albumin/Globulin Ratio 0.5 L (1.0-2.2) Triglycerides 81 mg/dL Cholesterol 80 ( - 200) mg/dL LDL Cholesterol, Calc 32 ( - 129) mg/dL VLDL Cholesterol 16 mg/dL HDL Cholesterol 32 L (60 - ) mg/dL LDL/HDL Ratio 1.0 (<4.4) Cholesterol/HDL Ratio 2.5 (<4.4) TSH 0.30 L (0.34-5.60) uIU/mL Diagnostic Imaging Results Diagnostic Imaging Results: positive Final report reviewed and Read independently Diagnostic Imaging Results Comments: Significant expansion of the left parotid gland. Fat stranding of the overlying skin. No distinct stone. No distinct fluid collection. Conclusion and Plan Diagnosis Diagnosis: Acute L bacterial parotitis Plan Plan: We anticipate nonsurgical management of this patient's left bacterial parotitis. I attempted to get some saliva to express from Ryan's duct bedside. The attempt was unsuccessful. Because of that I was unable to take any culture. I did find her also to have the very poor oral hygiene and very dry mucous membranes. She was also found to have a second problem which is angular cheilitis, a fungal infection of the corners of the mouth. Angular cheilitis of the corners of the mouth should be treated with topical nystatin twice daily. Recommend Vancomycin until MRSA is ruled out for management of parotitis. After Vancomycin, consider Unasyn while in house and Augmentin after discharge, total course of 10-14 days depending on clinical course. - peridex mouthrinse BID - topical nystatin to corners of mouth BID - Follow up in my office after discharge - OMFS will follow peripherally. Please call if reconsultation is desired. Please call with any questions. Thank you for including me in the care of this patient, Rivera Doyle, DDS [phone] Review of Systems She complains of left facial pain but other than that she is not able to report any history. Exam Exam A focused exam of the face and neck and mouth was performed. There is indurated left parotid swelling. There is no drainage. There is no loss of integrity of the overlying skin. The external auditory canal is normal. The parotitis is very tender. There is moderate erythema. It extends down past the inferior border the mandible. It does not extend to the midline. It does not extend below the level of the thyroid cartilage. Intraorally there is good mouth opening. There are no teeth. There is very very very poor oral hygiene. 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 She has a very dry mucous membranes in her mouth. The floor the mouth is not elevated and nontender. The left Stensen's duct orifice is identifiable. It is mildly erythematous. There is no drainage that can be expressed whatsoever from the orifice. There is no lateral pharyngeal swelling. The uvula is midline. Respiratory normal respiratory effort
[2024-04-10] MEDS: HYDROcod/ACETAM 5/325 MG TABLET PO SCH (22:35)
[2024-04-11 06:07] LABS: BASOPHILS % (AUTO) 0.4 %; EOSINOPHILS # (AUTO) 0.3 10^3/uL (0.0-0.7); EOSINOPHILS % (AUTO) 2.5 %; HCT - HEMATOCRIT 27.8 % (37.0-47.0); LYMPHOCYTES # (AUTO) 1.3 10^3/uL (1.5-3.5); LYMPHOCYTES % (AUTO) 11.7 %; MEAN CORPUSCULAR HEMOGLOBIN 26.1 pg (27.0-31.0); MEAN CORPUSCULAR HGB CONC 28.8 g/dL (32.0-36.0); MEAN CORPUSCULAR VOLUME 90.8 fL (81.0-99.0); MEAN PLATELET VOLUME 11.6 fL (7.9-10.8); MONOCYTES # (AUTO) 0.9 10^3/uL (0.0-1.0); MONOCYTES % (AUTO) 8.3 %; NEUTROPHILS # (AUTO) 8.7 10^3/uL (1.5-6.6); NEUTROPHILS % (AUTO) 76.4 %; PLT - PLATELET COUNT 294 10^3/uL (130-450); RED BLOOD COUNT 3.06 10^6/uL (4.20-5.40); RED CELL DISTRIBUTION WIDTH 16.2 % (12.0-15.0); WHITE BLOOD COUNT 11.3 x10^3/uL (4.8-10.8)
[2024-04-11 06:30] LABS: ALBUMIN 2.4 g/dL (3.2-5.5); ALBUMIN/GLOBULIN RATIO 0.5 (1.0-2.2); BILIRUBIN,TOTAL 0.6 mg/dL (0.2-1.0); CALCIUM 8.5 mg/dL (8.5-10.3); CREATININE 2.4 mg/dL (0.6-1.3); MAGNESIUM 2.4 mg/dL (1.7-2.3); POTASSIUM 4.5 mmol/L (3.5-4.5); TOTAL PROTEIN 7.2 g/dL (6.4-8.9)
--- NOTE | 2024-04-11 07:51 | PHARMACY PROGRESS NOTE ---
Vancomycin Therapy Monitoring Patient Information Vancomycin Pt Height (inches): 62 Vancomycin Patient Weight (kg): 89.8 Vanco Rx Serum Creatinine (mg/dL): 2.4 Vancomycin Therapy BUN (mg/dL): 53 Vancomycin Therapy Calculated Creatinine Cl (ml/min): 16 Concurrent Antibiotics: UNASYN Vancomycin Therapy Goals Treatment Indication: Facial cellulitis/Parotitis Vancomycin Target Range: Vancomycin AUC Target Range 400-600 mcg*h/ml Assessment of Current Therapy Vancomycin Loading Dose (GM, if applicable): 2 gm IV given 04/11 @ ~ 2100 Plan: New Regimen (Enter new dose and interval): Vancomycin 1 g IV q48h starting 04/12 @ 2100 Vancomycin Level Recommendation: Level not necessary at this time (Empiric use of vancomycin - will re-evaluate whether level is needed once culture results are available) Areas for additonal monitoring Areas for additional monitoring: IV to PO when appropriate, Therapy de- escalation based on culture results and Acute Kidney Injury
--- NOTE | 2024-04-11 07:59 | Ultrasound Report ---
PROCEDURE: US Renal (Retroperitoneal) INDICATIONS: Acute kidney insufficiency / injury, per notes TECHNIQUE: Real-time scanning was performed of the retroperitoneal organs, with image documentation. 35 images. COMPARISON: None. FINDINGS: Moderate to severe diffuse increased echogenicity of the kidneys bilaterally commonly medical renal d isease. Kidneys: Kidneys are normal in size. Right kidney measures 10.7 cm long; left kidney measures 11.0 cm long. Right renal cortical thickness is 1.1 cm; left renal cortical thickness is 1.7 cm. No ana d masses, hydronephrosis, or nephrolithiasis. Bladder: Bladder is not well evaluated per notes. Pre-void bladder volume is 73 mL. Post-void resid ual is not delineated. Miscellaneous: No free abdominal fluid. IMPRESSION: Moderate to severe diffuse increased echogenicity of the kidneys. Nonspecific urinary bladder wall thickening. No hydronephrosis. If symptoms persist or worsen, or there is high clinical suspicion of abdominal pelvic abnormality, C T could be performed. Reviewed by: Yobani Harp MD on 04/11/2024 7:58 AM PST Approved by: Yobani Harp MD on 04/11/2024 7:58 AM PST Station ID: [email or web address]
[2024-04-11] MEDS: SENNA 8.6 MG TABLET PO SCH (08:35)
[2024-04-11] MEDS: diltiaZEM CD 240 MG CAPSULE PO SCH (08:35)
[2024-04-11] MEDS: MAGNESIUM OXIDE 400 MG TABLET PO SCH (08:35)
[2024-04-11] MEDS: CHLORHEXIDINE GLUCONATE 15 ML UDC PO SCH (08:35)
[2024-04-11] MEDS: SOLIFENACIN SUCCINATE 5 MG TABLET PO SCH (08:35)
[2024-04-11] MEDS: DULoxetine 60 MG CAPSULE PO SCH (08:35)
[2024-04-11] MEDS: FUROSEMIDE 20 MG TABLET PO SCH (08:36)
[2024-04-11] MEDS: NYSTATIN CREAM 15 GM TUBE TOP SCH (08:36)
[2024-04-11] MEDS: SODIUM CHLORIDE 0.9% 1,000 ML IV SCH (09:09)
[2024-04-11] MEDS: HYDROcod/ACETAM 5/325 MG TABLET PO PRN (09:10)
--- NOTE | 2024-04-11 09:59 | PROVIDER PROGRESS NOTE ---
Subjective Prog Note Date Prog Note Date: 04/11/24 Subjective Pt reports feeling: No change Current Medications Current Medications Current Medications: Current Medications Generic Name Dose Route Start Last Admin Trade Name Natasha PRN Reason Stop Dose Admin Acetaminophen 650 mg 04/10/24 20:14 Acetaminophen 325 Mg Tablet PO Q6H PRN PRN PAIN &/OR FEVER Hydrocodone Bitart/Acetaminophen 0.5 tab 04/11/24 00:10 04/11/24 09:10 Hydrocod/Acetam 5/325 Mg Tablet PO 0.5 tab Q8H PRN Administration Moderate Pain (Level 4-6) Apixaban 2.5 mg 04/10/24 21:00 04/11/24 08:35 Apixaban 2.5 Mg Tablet PO 2.5 mg BID CHELSEA Administration Aripiprazole 10 mg 04/10/24 21:00 04/10/24 21:23 Aripiprazole 5 Mg Tablet PO 10 mg QPM CHELSEA Administration Atorvastatin Calcium 80 mg 04/10/24 21:00 04/10/24 21:23 Atorvastatin 40 Mg Tablet PO 80 mg QPM CHELSEA Administration Chlorhexidine Gluconate 15 ml 04/11/24 09:00 04/11/24 08:35 Chlorhexidine Gluconate 15 Ml Udc PO 15 ml BID CHELSEA Administration Diltiazem HCl 240 mg 04/11/24 09:00 04/11/24 08:35 Diltiazem Cd 240 Mg Capsule PO 240 mg DAILY CHELSEA Administration Duloxetine HCl 60 mg 04/11/24 09:00 04/11/24 08:35 Duloxetine 60 Mg Capsule PO 60 mg DAILY CHELSEA Administration Ferrous Sulfate 325 mg 04/10/24 21:00 04/11/24 08:35 Ferrous Sulfate 325 Mg Tablet PO 325 mg BID CHELSEA Administration Ampicillin Sodium/Sulbactam 100 mls @ 200 mls/hr 04/10/24 21:00 04/11/24 05:30 Sodium 1.5 gm/ Sodium Chloride IV Infused Q8H CHELSEA Infusion Vancomycin HCl 1 gm/ Sodium 250 mls @ 167 mls/hr 04/12/24 21:00 Chloride IV Q48H CHELSEA Sodium Chloride 1,000 mls @ 100 mls/hr 04/11/24 09:00 04/11/24 09:09 Normal Saline 0.9% IV 04/12/24 04:59 100 mls/hr .Q10H CHELSEA Administration Magnesium Oxide 400 mg 04/11/24 08:00 04/11/24 08:35 Magnesium Oxide 400 Mg Tablet PO 400 mg BIDWM CHELSEA Administration Multi-Ingredient Ointment 1 applic 04/10/24 20:14 Zinc Oxide 20% Oint 30 Gm Tube TOP PRN PRN Skin Care Nystatin 1 applic 04/11/24 09:00 04/11/24 08:36 Nystatin Cream 15 Gm Tube TOP 1 appful BID CHELSEA Administration Pantoprazole Sodium 40 mg 04/10/24 21:00 04/11/24 08:35 Pantoprazole 40 Mg Tablet PO 40 mg BID CHELSEA Administration Senna 8.6 mg 04/11/24 09:00 04/11/24 08:35 Senna 8.6 Mg Tablet PO 8.6 mg DAILY CHELSEA Administration Solifenacin 5 mg 04/11/24 09:00 04/11/24 08:35 Solifenacin Succinate 5 Mg Tablet PO 5 mg DAILY CHELSEA Administration Objective Vital Signs/Intake & Output Reviewed Vital Signs: Yes Vital Signs: Vital Signs x48h Temp Pulse Resp BP Pulse Ox O2 Flow Rate 04/11/24 09:11 36.2 C L 118 H 18 129/73 93 2 04/11/24 05:00 36.4 C L 103 H 20 114/74 96 2 Intake & Output: Intake & Output 04/08/24 04/09/24 04/10/24 04/11/24 23:59 23:59 23:59 23:59 Intake Total 1700 / 1700 100 / 100 Output Total 200 / 200 Balance 1700 / 1700 -100 / -100 Weight (kg) 89.811 kg Objective General Appearance: positive No acute distress and Alert Eyes Bilateral: positive Normal inspection and PERRL ENT: positive Other (Significant swelling on left side of face) Respiratory: positive Chest non-tender and No respiratory distress Cardiovascular: positive Tachycardia Abdomen: positive Non-tender Skin: positive Color nml Extremities: positive Non-tender Neurologic/Psychiatric: positive Other (Extremely hard of hearing, requires questions to be repeated several times) Lab Results 04/11/24 05:08 04/11/24 05:08 Other Labs: Lab Results x24hrs 04/11/24 04/10/24 04/10/24 Range/Units 05:08 16:00 14:44 WBC 11.3 H 14.5 H (4.8-10.8) x10^3/uL RBC 3.06 L 3.23 L (4.20-5.40) 10^6/uL Hgb 8.0 L 8.5 L (12.0-16.0) g/dL Hct 27.8 L 29.0 L (37.0-47.0) % MCV 90.8 89.8 (81.0-99.0) fL MCH 26.1 L 26.3 L (27.0-31.0) pg MCHC 28.8 L 29.3 L (32.0-36.0) g/dL RDW 16.2 H 16.0 H (12.0-15.0) % Plt Count 294 290 (130-450) 10^3/uL MPV 11.6 H 11.5 H (7.9-10.8) fL Neut # (Auto) 8.7 H 11.2 H (1.5-6.6) 10^3/uL Lymph # (Auto) 1.3 L 1.8 (1.5-3.5) 10^3/uL [place] # (Auto) 0.9 1.1 H (0.0-1.0) 10^3/uL Eos # (Auto) 0.3 0.2 (0.0-0.7) 10^3/uL Baso # (Auto) 0.0 0.1 (0.0-0.1) 10^3/uL Absolute Nucleated RBC 0.00 0.00 x10^3/uL Nucleated RBC % 0.0 0.0 /100WBC Sodium 138 138 (135-145) mmol/L Potassium 4.5 5.2 H (3.5-4.5) mmol/L Chloride 100 L 98 L (101-111) mmol/L Carbon Dioxide 32 35 H (21-32) mmol/L Anion Gap 6.0 5.0 L (6-13) BUN 53 H 54 H (6-20) mg/dL Creatinine 2.4 H 2.2 H (0.6-1.3) mg/dL Estimated GFR (MDRD) 20 L 22 L (>89) Glucose 85 95 (74-104) mg/dL Estimat Average Glucose 117 H (70-100) mg/dL Hemoglobin A1c % 5.7 (4.27-6.07) % Lactic Acid 0.8 (0.5-2.2) mmol/L Calcium 8.5 8.7 (8.5-10.3) mg/dL Magnesium 2.4 H (1.7-2.3) mg/dL Total Bilirubin 0.6 0.6 (0.2-1.0) mg/dL AST 12 12 (10-42) IU/L ALT 6 L 6 L (10-60) IU/L Alkaline Phosphatase 108 117 (42-121) IU/L Total Protein 7.2 7.5 (6.4-8.9) g/dL Albumin 2.4 L 2.5 L (3.2-5.5) g/dL Globulin 4.8 H 5.0 H (2.1-4.2) g/dL Albumin/Globulin Ratio 0.5 L 0.5 L (1.0-2.2) Triglycerides 81 mg/dL Cholesterol 80 ( - 200) mg/dL LDL Cholesterol, Calc 32 ( - 129) mg/dL VLDL Cholesterol 16 mg/dL HDL Cholesterol 32 L (60 - ) mg/dL LDL/HDL Ratio 1.0 (<4.4) Cholesterol/HDL Ratio 2.5 (<4.4) TSH 0.30 L (0.34-5.60) uIU/mL Assessment/Plan Problem List (1) Parotitis, acute: Impression: Parotitis with facial cellulitis, Complicated by angular cheilitis OMFS following, They report this is likely nonoperative On Vanco/Unasyn per OMFS recommendation Also nystatin and Peridex Per OMFS request, expressed purulent discharge for culture (2) Acute kidney injury: Impression: Likely due to dehydration and infection Renal ultrasound pending Cautiously replating IVF in setting of CHF BMP in a.m. (3) Paroxysmal atrial fibrillation with rapid ventricular response: Impression: Likely exacerbated by infection, dehydration Continue home regimen Diltiazem, Eliquis (4) History of chronic heart failure: Impression: Echocardiogram 11/05/2023 EF 40 to 45% Cautious with fluid repletion
[2024-04-11] MEDS: KETOROLAC 15 MG/ML VIAL IVP STA (17:36)
[2024-04-11] MEDS: HYDROmorphone 0.5 MG/0.5 ML SYRINGE IVP ONE (18:17)
[2024-04-12 05:43] LABS: VANCOMYCIN,RANDOM 17.8 ug/mL
--- NOTE | 2024-04-12 09:23 | PROVIDER PROGRESS NOTE ---
Subjective Prog Note Date Prog Note Date: 04/12/24 Subjective Pt reports feeling: Improved Current Medications Current Medications Current Medications: Current Medications Generic Name Dose Route Start Last Admin Trade Name Freq PRN Reason Stop Dose Admin Acetaminophen 650 mg 04/10/24 20:14 Acetaminophen 325 Mg Tablet PO Q6H PRN PRN PAIN &/OR FEVER Hydrocodone Bitart/Acetaminophen 0.5 tab 04/11/24 00:10 04/11/24 09:10 Hydrocod/Acetam 5/325 Mg Tablet PO 0.5 tab Q8H PRN Administration Moderate Pain (Level 4-6) Apixaban 2.5 mg 04/10/24 21:00 04/12/24 08:36 Apixaban 2.5 Mg Tablet PO 2.5 mg BID CHELSEA Administration Aripiprazole 10 mg 04/10/24 21:00 04/11/24 20:52 Aripiprazole 5 Mg Tablet PO 10 mg QPM CHELSEA Administration Atorvastatin Calcium 80 mg 04/10/24 21:00 04/11/24 20:52 Atorvastatin 40 Mg Tablet PO 80 mg QPM CHELSEA Administration Chlorhexidine Gluconate 15 ml 04/11/24 09:00 04/12/24 08:36 Chlorhexidine Gluconate 15 Ml Udc PO 15 ml BID CHELSEA Administration Diltiazem HCl 240 mg 04/11/24 09:00 04/12/24 08:36 Diltiazem Cd 240 Mg Capsule PO 240 mg DAILY CHELSEA Administration Duloxetine HCl 60 mg 04/11/24 09:00 04/12/24 08:36 Duloxetine 60 Mg Capsule PO 60 mg DAILY CHELSEA Administration Ferrous Sulfate 325 mg 04/10/24 21:00 04/12/24 08:36 Ferrous Sulfate 325 Mg Tablet PO 325 mg BID CHELSEA Administration Ampicillin Sodium/Sulbactam 100 mls @ 200 mls/hr 04/10/24 21:00 04/12/24 05:15 Sodium 1.5 gm/ Sodium Chloride IV Infused Q8H CHELSEA Infusion Vancomycin HCl 1 gm/ Sodium 250 mls @ 167 mls/hr 04/12/24 21:00 Chloride IV Q48H CHELSEA Sodium Chloride 1,000 mls @ 100 mls/hr 04/12/24 10:00 Normal Saline 0.9% IV 04/13/24 05:59 .Q10H CHELSEA Magnesium Oxide 400 mg 04/11/24 08:00 04/12/24 08:37 Magnesium Oxide 400 Mg Tablet PO 400 mg BIDWM CHELSEA Administration Multi-Ingredient Ointment 1 applic 04/10/24 20:14 Zinc Oxide 20% Oint 30 Gm Tube TOP PRN PRN Skin Care Nystatin 1 applic 04/11/24 09:00 04/12/24 08:37 Nystatin Cream 15 Gm Tube TOP 1 applic BID CHELSEA Administration Pantoprazole Sodium 40 mg 04/10/24 21:00 04/12/24 08:36 Pantoprazole 40 Mg Tablet PO 40 mg BID CHELSEA Administration Senna 8.6 mg 04/11/24 09:00 04/12/24 08:36 Senna 8.6 Mg Tablet PO 8.6 mg DAILY CHELSEA Administration Solifenacin 5 mg 04/11/24 09:00 04/12/24 08:36 Solifenacin Succinate 5 Mg Tablet PO 5 mg DAILY CHELSEA Administration Objective Vital Signs/Intake & Output Reviewed Vital Signs: Yes Vital Signs: Vital Signs x48h Temp Pulse Resp BP BP Pulse Ox O2 Flow Rate 04/12/24 08:00 36.7 C 83 18 133/61 H 98 2 04/12/24 06:00 36.4 C L 83 20 124/60 95 2 04/12/24 03:48 36.3 C L 74 14 115/55 L 98 2 Intake & Output: Intake & Output 04/09/24 04/10/24 04/11/24 04/12/24 23:59 23:59 23:59 23:59 Intake Total 1700 / 1700 2212 / 2212 1198 / 1198 Output Total 700 / 700 125 / 125 Balance 1700 / 1700 1512 / 1512 1073 / 1073 Weight (kg) 89.811 kg Objective General Appearance: positive No acute distress and Alert Eyes Bilateral: positive Normal inspection and PERRL ENT: positive Other (Significant swelling on left side of face) Respiratory: positive Chest non-tender and No respiratory distress Cardiovascular: positive Tachycardia Abdomen: positive Non-tender Skin: positive Color nml Extremities: positive Non-tender Neurologic/Psychiatric: positive Other (Extremely hard of hearing, requires questions to be repeated several times) Lab Results 04/12/24 09:31 04/12/24 08:30 Other Labs: Lab Results x24hrs 04/12/24 Range/Units 05:20 Last Dose Date 04/10/24 Last Dose Time 2100 Random Vancomycin 17.8 ug/mL Assessment/Plan Problem List (1) Parotitis, acute: Impression: Parotitis with facial cellulitis, Complicated by angular cheilitis OMFS following, They report this is likely nonoperative On Vanco/Unasyn per OMFS recommendation Also nystatin and Peridex Per OMFS request, expressed purulent discharge for culture 04/12/2024: Cultures pending, O2 weaned down to room air, WBC now 8.9. She is now medically clear for discharge. Facility is unable to take her back today due to the holiday. Will continue to follow culture results to see if we can de-escalate off of MRSA coverage (2) Acute kidney injury: Impression: Likely due to dehydration and infection Renal ultrasound shows what is possibly medical renal disease Continue IV fluids BMP daily Check UA (3) Paroxysmal atrial fibrillation with rapid ventricular response: Impression: Likely exacerbated by infection, dehydration Continue home regimen Diltiazem, Eliquis (4) History of chronic heart failure: Impression: Echocardiogram 11/05/2023 EF 40 to 45% Cautious with fluid repletion
[2024-04-12 09:46] LABS: BASOPHILS # (AUTO) 0.1 10^3/uL (0.0-0.1); BASOPHILS % (AUTO) 0.6 %; EOSINOPHILS # (AUTO) 0.3 10^3/uL (0.0-0.7); EOSINOPHILS % (AUTO) 3.7 %; HCT - HEMATOCRIT 25.1 % (37.0-47.0); HGB - HEMOGLOBIN 7.4 g/dL (12.0-16.0); LYMPHOCYTES % (AUTO) 10.9 %; MEAN CORPUSCULAR HEMOGLOBIN 26.7 pg (27.0-31.0); MEAN CORPUSCULAR HGB CONC 29.5 g/dL (32.0-36.0); MEAN CORPUSCULAR VOLUME 90.6 fL (81.0-99.0); MEAN PLATELET VOLUME 11.1 fL (7.9-10.8); MONOCYTES # (AUTO) 0.6 10^3/uL (0.0-1.0); NEUTROPHILS # (AUTO) 6.8 10^3/uL (1.5-6.6); NEUTROPHILS % (AUTO) 77.1 %; PLT - PLATELET COUNT 271 10^3/uL (130-450); RED BLOOD COUNT 2.77 10^6/uL (4.20-5.40); WHITE BLOOD COUNT 8.9 x10^3/uL (4.8-10.8)
[2024-04-12] MEDS: SODIUM CHLORIDE 0.9% 1,000 ML IV SCH (09:46)
[2024-04-12 09:59] LABS: CALCIUM 7.8 mg/dL (8.5-10.3); CREATININE 2.5 mg/dL (0.6-1.3)
[2024-04-12 10:53] LABS: ABSOLUTE RETICS # AUTO 0.036 10^6/uL (0.020-0.110); RED BLOOD COUNT 2.76 10^6/uL (4.20-5.40); RETICULOCYTE COUNT % (AUTO) 1.31 % (0.5-2.3)
[2024-04-12 11:09] LABS: % IRON SATURATION 15 % (20-50); IRON 22 ug/dL (50-212); TOTAL IRON BINDING CAPACITY 143 ug/dL (250-450); TRANSFERRIN 102 mg/dL (203-362)
--- NOTE | 2024-04-12 11:24 | PHARMACY PROGRESS NOTE ---
Best Possible Medication History Admit Date and Time: 04/10/2420260424 Home Medications Medication Instructions Recorded Confirmed Type duloxetine 60 mg capsule,delayed 60 mg PO DAILY 07/19/20 04/10/24 History release (Cymbalta) solifenacin 10 mg tablet (Vesicare) 5 mg PO DAILY 07/19/20 04/10/24 History acetaminophen 325 mg tablet 650 mg PO Q6H PRN PRN PAIN &/OR 11/05/23 04/10/24 History FEVER pregabalin 100 mg capsule 100 mg PO TID 11/05/23 04/10/24 History atorvastatin 80 mg tablet (Lipitor) 80 mg PO QPM hyperlipidemia #30 11/08/23 04/10/24 Rx tabs cetirizine 5 mg tablet (Allergy 5 mg PO DAILY allergic rhinitis 11/08/23 04/10/24 Rx Relief (cetirizine)) ##0 potassium chloride 10 mEq 10 meq PO DAILY 11/24/23 04/10/24 History capsule,extended release tizanidine 2 mg tablet 2 mg PO Q12H PRN Spasms 11/24/23 04/10/24 History ondansetron 4 mg disintegrating 4 mg translingual Q6H PRN Nausea / 12/03/23 04/10/24 History tablet Vomiting diltiazem HCl 240 mg 240 mg PO DAILY 12/06/23 04/10/24 Rx capsule,extended release 24 hr ferrous sulfate 325 mg (65 mg 325 mg PO BID #60 tabs 12/06/23 04/10/24 Rx iron) tablet,delayed release magnesium oxide 400 mg (241.3 mg 400 mg PO BIDWM 12/06/23 04/10/24 Rx magnesium) tablet pantoprazole 40 mg tablet,delayed See Rx Instructions .Route 01/27/24 04/10/24 Rx release .COMPLEX #30 tabs apixaban 2.5 mg tablet (Eliquis) 2.5 mg PO BID 04/10/24 04/10/24 History sennosides 8.6 mg capsule (senna) 17.2 mg PO DAILY PRN constipation 04/10/24 04/12/24 History aripiprazole 10 mg tablet 10 mg PO HS 04/12/24 04/12/24 History bisacodyl 10 mg rectal suppository 10 mg VA DAILY PRN constipation 04/12/24 04/12/24 History furosemide 20 mg tablet 20 mg PO DAILY chronic congestive 04/12/24 04/12/24 History heart failure hydrocodone 5 mg-acetaminophen 325 1 tab PO TID chronic pain 04/12/24 04/12/24 History mg tablet mineral oil (Fleet Mineral Oil 118 ml VA DAILY PRN constipation 04/12/24 04/12/24 History enema) polyethylene glycol 3350 17 17 g PO DAILY PRN constipation 04/12/24 04/12/24 History gram/dose oral powder (Miralax) Processed by: Pharmacy Medications reviewed in ED?: No Medication History completed: Yes Patient Interview: Pt unable to participate Secondary Source(s): Facility MAR as ONLY source ([facility] [employer] DOES NOT MATCH INSURANCE FILLS. CAN SEE 10MG TABS BEING FILLED, 30 FOR 30D SUPPLY. MAR STATES 5MG DAILY. UNABLE TO REACH REGENCY BY PHONE TO CONFIRM.) [facility] [place] Statement: As the person ultimately responsible for medication therapy, providers are able to order a medication from an existing home medication list in [facility] via the "Reconcile Routine" prior to Confirmation of that medication by operations support specialist. Such practice is discouraged except when the physician, in their clinical judgment, deems that a medical need exists for a medication without regard to previous use.
[2024-04-12 12:27] LABS: BILIRUBIN,URINE NEGATIVE (NEGATIVE); GLUCOSE, URINE (UA) NEGATIVE (NEGATIVE); KETONES,URINE (UA) NEGATIVE (NEGATIVE); LEUKOCYTE ESTERASE, URINE MODERATE (NEGATIVE); NITRITE,URINE NEGATIVE (NEGATIVE); OCCULT BLOOD,URINE LARGE (NEGATIVE); PROTEIN,URINE 100 mg/dL (NEGATIVE); UROBILINOGEN,URINE 0.2 (NORMAL) E.U./dL (NORMAL)
[2024-04-12 12:28] LABS: CLARITY,URINE CLOUDY (CLEAR)
[2024-04-12 12:33] LABS: BACTERIA,URINE Moderate /HPF (None Seen); SQUAMOUS EPITHELIAL CELL,UR FEW Squamous (<= Few); WBC CLUMPS,URINE PRESENT; WBC,URINE >25 /HPF (0-5)
[2024-04-12] MEDS ORDERED: COD LIVER OIL/ZINC OXIDE 113 GM TUBE TOP PRN (20:25)
[2024-04-12] MEDS: ZINC OXIDE 20% OINT 30 GM TUBE TOP PRN (20:29)
[2024-04-12] MEDS: VANCOMYCIN INJ 1 GM in SODIUM CHLORIDE 0.9% 250 ML IV SCH (21:35)
[2024-04-13] MEDS: ACETAMINOPHEN 325 MG TABLET PO PRN (04:09)
[2024-04-13 09:17] LABS: BASOPHILS % (AUTO) 0.3 %; EOSINOPHILS # (AUTO) 0.3 10^3/uL (0.0-0.7); EOSINOPHILS % (AUTO) 2.4 %; HGB - HEMOGLOBIN 7.1 g/dL (12.0-16.0); MEAN CORPUSCULAR HGB CONC 29.6 g/dL (32.0-36.0); MEAN CORPUSCULAR VOLUME 91.3 fL (81.0-99.0); MEAN PLATELET VOLUME 11.5 fL (7.9-10.8); MONOCYTES # (AUTO) 0.7 10^3/uL (0.0-1.0); MONOCYTES % (AUTO) 6.6 %; NEUTROPHILS # (AUTO) 8.6 10^3/uL (1.5-6.6); NEUTROPHILS % (AUTO) 80.8 %; PLT - PLATELET COUNT 274 10^3/uL (130-450); RED BLOOD COUNT 2.63 10^6/uL (4.20-5.40); RED CELL DISTRIBUTION WIDTH 15.9 % (12.0-15.0); WHITE BLOOD COUNT 10.6 x10^3/uL (4.8-10.8)
[2024-04-13 09:32] LABS: CALCIUM 7.5 mg/dL (8.5-10.3); CREATININE 2.5 mg/dL (0.6-1.3); POTASSIUM 3.8 mmol/L (3.5-4.5)
[2024-04-13] MEDS: AMOX/CLAV 500 MG/125 MG TABLET PO SCH (10:33)
--- NOTE | 2024-04-13 11:34 | Discharge Summary ---
"Discharge Summary Admit Date: 04/10/24 Discharge Date: 04/13/24 Discharging Provider: Janneth Carrillo PA-C Primary Care Provider: Akbar Camacho Code Status: Attempt Resuscitation Discharge Facility Name: [facility] DIAGNOSES Discharge Diagnoses with Status of Each Condition: Parotiditis, treated. Acute on chronic kidney disease, present on admission A fib with RVR, resolved. A fib, chronic and treated. Chronic heart failure, EF 40-45% HPI History of Present Illness: pt with L facial swelling + redness x 1 wk, per her recollection. not able to fully recall all details but denies any trauma to face. no fevers but has had chills. no sob. on chronic O2 via [place] d/t h/o copd. stays in [facility]. no falls. no ams but has h/o dementia. pt able to provide hx with repeated, simple questions. no abd pain. no n/v/d. no dysuria or hematuria. CONSULTS | PROCEDURES Consultations: OMFS Procedures: CT maxillofacial: Enlargement of left-sided parotid gland, with superimposed skin thickening and subcutaneous fat stranding. No abscess identified, indicative of parotiditis Enlarged heterogeneous thyroid consistent with thyroiditis. Retroperitoneal ultrasound: Moderate to severe diffuse increased echogenicity of the kidneys. Nonspecific urinary bladder wall thickening. No hydronephrosis. HOSPITAL COURSE Hospital Course: Admitted with left facial cellulitis and swelling present for about 1 week although patient does have some dementia and she is a poor historian. Was treated with vancomycin and Unasyn. Was seen by oral surgery who also diagnosed an angular cheilitis which is being treated with topical nystatin and Peridex rinse. Fluid was expressed from the parotid gland and sent for culture. This was Staph aureus which was methicillin sensitive. She was treated initially with Unasyn and vancomycin this was de-escalated to oral Augmentin at renal dosing at the time of discharge. She was continued on her home Eliquis at renal dosing and her home diltiazem. Her heart rate was well-controlled and her blood pressure was within normal limits. On the date of discharge is noted that she has a right lower leg lesion, about 3-1/2 cm in diameter with some erythema. This has been marked and it remains well within the erythematous borders. Augmentin should treat this adequately. I have asked general surgery to see this but they have not been able to make it to the bedside today. If this lesion worsens I would recommend evaluation by general surgery. Additionally, there is evidence on her CT of the neck of some thyroid inflammation. I would recommend follow-up of this in the outpatient environment. ALLERGIES Allergies Allergy/AdvReac Type Severity Reaction Status Date / Time clindamycin Allergy Unknown Verified 04/10/24 14:40 phenobarbital Allergy Hives Verified 04/10/24 14:40 morphine AdvReac Intermediate Hallucinati Verified 04/10/24 14:40 ons doxycycline AdvReac Nausea Verified 04/10/24 14:40 MEDICATIONS Ambulatory Orders Medication Instructions Recorded Confirmed duloxetine 60 mg capsule,delayed 60 mg PO DAILY 07/19/20 04/10/24 release (Cymbalta) solifenacin 10 mg tablet (Vesicare) 5 mg PO DAILY 07/19/20 04/10/24 acetaminophen 325 mg tablet 650 mg PO Q6H PRN PRN PAIN &/OR 11/05/23 04/10/24 FEVER pregabalin 100 mg capsule 100 mg PO TID 11/05/23 04/10/24 atorvastatin 80 mg tablet (Lipitor) 80 mg PO QPM hyperlipidemia #30 11/08/23 04/10/24 tabs cetirizine 5 mg tablet (Allergy 5 mg PO DAILY allergic rhinitis 11/08/23 04/10/24 Relief (cetirizine)) ##0 potassium chloride 10 mEq 10 meq PO DAILY 11/24/23 04/10/24 capsule,extended release tizanidine 2 mg tablet 2 mg PO Q12H PRN Spasms 11/24/23 04/10/24 ondansetron 4 mg disintegrating 4 mg translingual Q6H PRN Nausea / 12/03/23 04/10/24 tablet Vomiting diltiazem HCl 240 mg 240 mg PO DAILY 12/06/23 04/10/24 capsule,extended release 24 hr ferrous sulfate 325 mg (65 mg 325 mg PO BID #60 tabs 12/06/23 04/10/24 iron) tablet,delayed release magnesium oxide 400 mg (241.3 mg 400 mg PO BIDWM 12/06/23 04/10/24 magnesium) tablet pantoprazole 40 mg tablet,delayed See Rx Instructions .Route 01/27/24 04/10/24 release .COMPLEX #30 tabs apixaban 2.5 mg tablet (Eliquis) 2.5 mg PO BID 04/10/24 04/10/24 sennosides 8.6 mg capsule (senna) 17.2 mg PO DAILY PRN constipation 04/10/24 04/12/24 aripiprazole 10 mg tablet 10 mg PO HS 04/12/24 04/12/24 bisacodyl 10 mg rectal suppository 10 mg IN DAILY PRN constipation 04/12/24 04/12/24 chlorhexidine gluconate 0.12 % 15 ml PO BID 30 days #1,500 mL 04/12/24 mouthwash furosemide 20 mg tablet 20 mg PO DAILY chronic congestive 04/12/24 04/12/24 heart failure hydrocodone 5 mg-acetaminophen 325 1 tab PO TID chronic pain 04/12/24 04/12/24 mg tablet mineral oil (Fleet Mineral Oil 118 ml IN DAILY PRN constipation 04/12/24 04/12/24 enema) nystatin 100,000 unit/gram topical 1 applic topical BID 30 days #15 04/12/24 cream grams polyethylene glycol 3350 17 17 g PO DAILY PRN constipation 04/12/24 04/12/24 gram/dose oral powder (Miralax) amoxicillin 500 mg-potassium 1 tab PO BID #20 tabs 04/13/24 clavulanate 125 mg tablet PHYSICAL EXAM AT DISCHARGE General Appearance: positive No acute distress and Alert Eyes Bilateral: positive Normal inspection ENT: positive ENT inspection nml and Pharynx nml Neck: positive Other (mild left facial tenderness. ) Respiratory: positive No respiratory distress and Breath sounds nml Cardiovascular: positive Regular rate & rhythm Abdomen: positive No distention Skin: positive Color nml Extremities: positive Other (right leg, medial aspect, well circumscribed lesion, with no warmth, but obvious underlying fluid collection. there is no pedal edema, there are palpable DP pulses, BLE) Neurologic/Psychiatric: positive Disoriented to place and Disoriented to time LABS 04/13/24 09:10 04/13/24 09:10 FOLLOW UP Follow Up: PCP in the next week: consider thyroid function studies, check right leg lesion. OMFS: Dr Doyle, within one week for recheck. TIME SPENT Time Spent in Discharge (Minutes): 45 Discharge Plan Discharge Patient Disposition: 03 [facility] DC/Xfer Condition: Good Medically Cleared Date:: 04/12/24 Prescriptions: New chlorhexidine gluconate 0.12 % Mouthwash 15 ml PO BID 30 Days Qty: 1500 0RF nystatin 100,000 unit/gram Cream 1 applic topical BID 30 Days Qty: 15 0RF amoxicillin-pot clavulanate 500-125 mg Tablet 1 tab PO BID Qty: 20 0RF Continued pantoprazole 40 mg tablet,delayed release (DR/EC) See Rx Instructions .ROUTE .COMPLEX Qty: 30 12RF Dose Instruction: TAKE (1) TABLET BY MOUTH TWICE DAILY. Rx Instructions: TAKE (1) TABLET BY MOUTH TWICE DAILY. solifenacin [Vesicare] 10 MG tablet 5 mg PO DAILY duloxetine [Cymbalta] 60 MG capsule,delayed release(DR/EC) 60 mg PO DAILY acetaminophen 325 MG tablet 650 mg PO Q6H PRN (Reason: PRN PAIN &/OR FEVER) pregabalin 100 MG capsule 100 mg PO TID atorvastatin [Lipitor] 80 MG tablet 80 mg PO QPM Qty: 30 0RF cetirizine [Allergy Relief (cetirizine)] 5 MG tablet 5 mg PO DAILY Qty: 0 0RF potassium chloride 10 MEQ capsule, extended release 10 meq PO DAILY tizanidine 2 MG tablet 2 mg PO Q12H PRN (Reason: Spasms) ondansetron 4 MG tablet,disintegrating 4 mg translingual Q6H PRN (Reason: Nausea / Vomiting) diltiazem HCl 240 MG capsule,extended release 24hr 240 mg PO DAILY 0RF magnesium oxide 400 MG tablet 400 mg PO BIDWM 0RF ferrous sulfate 325 MG tablet,delayed release (DR/EC) 325 mg PO BID Qty: 60 0RF Eliquis 2.5 mg tablet 2.5 mg PO BID senna 8.6 mg capsule 17.2 mg PO DAILY PRN (Reason: constipation) Rx Instructions: FOR DAY 4 WITHOUT BM bisacodyl 10 mg suppository 10 mg IN DAILY PRN (Reason: constipation) Rx Instructions: FOR DAY 5 WITHOUT BM mineral oil [Fleet Mineral Oil] Enema 118 ml IN DAILY PRN (Reason: constipation) Rx Instructions: discard any unused portion. FOR DAY 6 WITHOUT BM polyethylene glycol 3350 [Miralax] 17 gram/dose powder 17 g PO DAILY PRN (Reason: constipation) Rx Instructions: FOR DAY 3 WITHOUT BM hydrocodone-acetaminophen 1 TAB tablet 1 tab PO TID furosemide 20 MG tablet 20 mg PO DAILY aripiprazole 10 mg tablet 10 mg PO HS Activity Restrictions: Activity as Tolerated Diet: Soft Health Concerns: You are a 73-year-old female with past medical history significant for COPD on home O2, dementia, resident of nursing facility. You came in with swelling on the left side of your face x 1 week. It was found that you have a infection in your parotid gland, which is a gland on the left side of your jaw. You were evaluated by an oral surgeon, who recommended that we start antibiotics and collect cultures. Cultures have not resulted yet, but we are sending you home on Augmentin 500 mg p.o. twice daily for a total of 10 days.I am also sending you home on a mouth rinse and a cream for the yeast infection in your mouth. The oral surgeon would like to see you in his office in ONE WEEK for further evaluation. Care Plan Goals: Manage parotitis with Augmentin Follow-up with PCP Follow-up with OMFS in 1 week Assessment: Patient is a demented residential resident, on home O2 for COPD. She has been bed bound for over one year. Plan of Treatment: Augmentin 500 p.o. twice daily x 10 days Follow-up with PCP within 2 weeks Follow-up with OMFS in a week Diet as tolerated Print Language: German Patient Instructions: ED Submandibular Gland Infec Stand Alone Forms: SNF Discharge"
[2024-04-13 12:49] VITALS: BP 146/60; TEMP 97.3; O2SAT 98
[2024-04-13] MEDS: LIDOCAINE 1%-EPI 1:100000 20 ML MDV SUBQ ONE (12:51)
--- NOTE | 2024-04-13 13:21 | CONSULTATION NOTE ---
Chief Complaint Chief Complaint Chief Complaint: painful swelling right lower leg History of Present Illness History Obtained From Records Reviewed: yes History obtained from: hospitalist Exam Limitations: none History of Present Illness HPI Comment/Other: painful swelling right lower leg Meds/Allgy Home Medications Ambulatory Orders Medication Instructions Recorded Confirmed duloxetine 60 mg capsule,delayed 60 mg PO DAILY 07/19/20 04/10/24 release (Cymbalta) solifenacin 10 mg tablet (Vesicare) 5 mg PO DAILY 07/19/20 04/10/24 acetaminophen 325 mg tablet 650 mg PO Q6H PRN PRN PAIN &/OR 11/05/23 04/10/24 FEVER pregabalin 100 mg capsule 100 mg PO TID 11/05/23 04/10/24 atorvastatin 80 mg tablet (Lipitor) 80 mg PO QPM hyperlipidemia #30 11/08/23 04/10/24 tabs cetirizine 5 mg tablet (Allergy 5 mg PO DAILY allergic rhinitis 11/08/23 04/10/24 Relief (cetirizine)) ##0 potassium chloride 10 mEq 10 meq PO DAILY 11/24/23 04/10/24 capsule,extended release tizanidine 2 mg tablet 2 mg PO Q12H PRN Spasms 11/24/23 04/10/24 ondansetron 4 mg disintegrating 4 mg translingual Q6H PRN Nausea / 12/03/23 04/10/24 tablet Vomiting diltiazem HCl 240 mg 240 mg PO DAILY 12/06/23 04/10/24 capsule,extended release 24 hr ferrous sulfate 325 mg (65 mg 325 mg PO BID #60 tabs 12/06/23 04/10/24 iron) tablet,delayed release magnesium oxide 400 mg (241.3 mg 400 mg PO BIDWM 12/06/23 04/10/24 magnesium) tablet pantoprazole 40 mg tablet,delayed See Rx Instructions .Route 01/27/24 04/10/24 release .COMPLEX #30 tabs apixaban 2.5 mg tablet (Eliquis) 2.5 mg PO BID 04/10/24 04/10/24 sennosides 8.6 mg capsule (senna) 17.2 mg PO DAILY PRN constipation 04/10/24 04/12/24 aripiprazole 10 mg tablet 10 mg PO HS 04/12/24 04/12/24 bisacodyl 10 mg rectal suppository 10 mg [place] DAILY PRN constipation 04/12/24 04/12/24 chlorhexidine gluconate 0.12 % 15 ml PO BID 30 days #1,500 mL 04/12/24 mouthwash furosemide 20 mg tablet 20 mg PO DAILY chronic congestive 04/12/24 04/12/24 heart failure hydrocodone 5 mg-acetaminophen 325 1 tab PO TID chronic pain 04/12/24 04/12/24 mg tablet mineral oil (Fleet Mineral Oil 118 ml [place] DAILY PRN constipation 04/12/24 04/12/24 enema) nystatin 100,000 unit/gram topical 1 applic topical BID 30 days #15 04/12/24 cream grams polyethylene glycol 3350 17 17 g PO DAILY PRN constipation 04/12/24 04/12/24 gram/dose oral powder (Miralax) amoxicillin 500 mg-potassium 1 tab PO BID #20 tabs 04/13/24 clavulanate 125 mg tablet Allergies Allergies Allergy/AdvReac Type Severity Reaction Status Date / Time clindamycin Allergy Unknown Verified 04/10/24 14:40 phenobarbital Allergy Hives Verified 04/10/24 14:40 morphine AdvReac Intermediate Hallucinati Verified 04/10/24 14:40 ons doxycycline AdvReac Nausea Verified 04/10/24 14:40 [facility] Medical History Medical History (Updated 04/11/24 @ 09:55 by Maxi Cisneros DNP) History of chronic heart failure Social History Social History Smoking Status: Former smoker If you are a former smoker, when did you quit? (Date/Year): 1989 Number of Years Smoked: 18 How many cigarettes a day do you smoke? (20 cigarettes=1 Pk): 10 Do you dip or chew tobacco?: No Do you vape?: No Patient requests smoking cessation consult: No Initiate information on smoking cessation: No Living arrangement: Assisted living Living Condition: With family Relationship: Level: Dependent Home Mobility Equipment: Lift Do you feel safe in your home environment?: Yes Suffered physical, verbal, emotional, or financial abuse?: No History of Abuse: No POLST Patient has POLST: Yes POLST Status: Full Code Results Lab Results 04/13/24 09:10 04/13/24 09:10 Other Lab Results: Lab Results x24hrs 04/13/24 Range/Units 09:10 WBC 10.6 (4.8-10.8) x10^3/uL RBC 2.63 L (4.20-5.40) 10^6/uL Hgb 7.1 L (12.0-16.0) g/dL Hct 24.0 L (37.0-47.0) % MCV 91.3 (81.0-99.0) fL MCH 27.0 (27.0-31.0) pg MCHC 29.6 L (32.0-36.0) g/dL RDW 15.9 H (12.0-15.0) % Plt Count 274 (130-450) 10^3/uL MPV 11.5 H (7.9-10.8) fL Neut # (Auto) 8.6 H (1.5-6.6) 10^3/uL Lymph # (Auto) 1.0 L (1.5-3.5) 10^3/uL Greene # (Auto) 0.7 (0.0-1.0) 10^3/uL Eos # (Auto) 0.3 (0.0-0.7) 10^3/uL Baso # (Auto) 0.0 (0.0-0.1) 10^3/uL Absolute Nucleated RBC 0.00 x10^3/uL Nucleated RBC % 0.0 /100WBC Sodium 137 (135-145) mmol/L Potassium 3.8 (3.5-4.5) mmol/L Chloride 106 (101-111) mmol/L Carbon Dioxide 25 (21-32) mmol/L Anion Gap 6.0 (6-13) BUN 52 H (6-20) mg/dL Creatinine 2.5 H (0.6-1.3) mg/dL Estimated GFR (MDRD) 19 L (>89) Glucose 186 H (74-104) mg/dL Calcium 7.5 L (8.5-10.3) mg/dL Review of Systems Status of ROS: 10 or more systems reviewed and unremarkable except as noted in history and below Exam Constitutional normal general appearance and no apparent distress HENMT normocephalic and head/scalp atraumatic Eyes PERRL, EOMs intact bilaterally and no scleral icterus Neck/C-Spine trachea midline Respiratory normal respiratory effort Gastrointestinal nondistended Extremities 3.5 cm tight fluctuant swelling right lower leg mid tibia with skin discoloration Conclusion/Plan Problem List (1) Parotitis, acute: (2) Acute kidney injury: (3) Paroxysmal atrial fibrillation with rapid ventricular response: (4) History of chronic heart failure: (5) Hematoma of leg: Plan: tight painful swelling right lower leg mid tibia with skin compromise/ discoloration. after parq verbal consent is obtained. with clean technique and local anesthesia the 3.5 cm swelling is drained with a 3 cm incision. findings hematoma and not an abscess. well tolerated Qualifiers: Encounter type: initial encounter Laterality: right Qualified Code(s): S80.11XA - Contusion of right lower leg, initial encounter Plan daily dressing care. do not need to pack starting tomorrow. day gauze over the top and change daily and as needed starting 04/14. follow up surgery office as needed [phone] Lab Results 04/13/24 09:10 04/13/24 09:10
== END 2024-04-13 14:05 | DRG 155 ==
LOC: ED 14:09 → MS2 20:27
PROVIDERS: ADMIT Student in an Organized Health Care Education/Training Program; ATTEND Student in an Organized Health Care Education/Training Program
DX: R00.0 Tachycardia, unspecified; R22.0 Localized swelling, mass and lump, head; Z79.01 Long term (current) use of anticoagulants; E11.9 Type 2 diabetes mellitus without complications; K08.109 Complete loss of teeth, unspecified cause, unspecified class; I50.9 Heart failure, unspecified; E06.9 Thyroiditis, unspecified; S80.11XA Contusion of right lower leg, initial encounter; K11.21 Acute sialoadenitis; N17.9 Acute kidney failure, unspecified; J44.9 Chronic obstructive pulmonary disease, unspecified; A49.01 Methicillin susceptible Staphylococcus aureus infection, unspecified site; Z74.01 Bed confinement status; F03.90 Unspecified dementia, unspecified severity, without behavioral disturbance, psychotic disturbance, mood disturbance, and anxiety; E86.0 Dehydration; Z99.81 Dependence on supplemental oxygen; L03.211 Cellulitis of face; K13.0 Diseases of lips; N18.9 Chronic kidney disease, unspecified; D72.829 Elevated white blood cell count, unspecified; I48.0 Paroxysmal atrial fibrillation; Z87.891 Personal history of nicotine dependence

== ENCOUNTER 2024-04-16 16:50 | Inpatient (IN) ==
[2024-04-16 17:11] LABS: BASOPHILS # (AUTO) 0.1 10^3/uL (0.0-0.1); BASOPHILS % (AUTO) 0.3 %; EOSINOPHILS % (AUTO) 0.1 %; HCT - HEMATOCRIT 23.3 % (37.0-47.0); LYMPHOCYTES # (AUTO) 1.5 10^3/uL (1.5-3.5); LYMPHOCYTES % (AUTO) 8.3 %; MEAN CORPUSCULAR HEMOGLOBIN 26.6 pg (27.0-31.0); MEAN CORPUSCULAR HGB CONC 28.8 g/dL (32.0-36.0); MEAN CORPUSCULAR VOLUME 92.5 fL (81.0-99.0); MONOCYTES # (AUTO) 0.9 10^3/uL (0.0-1.0); MONOCYTES % (AUTO) 5.2 %; NEUTROPHILS # (AUTO) 14.6 10^3/uL (1.5-6.6); NEUTROPHILS % (AUTO) 83.8 %; PLT - PLATELET COUNT 386 10^3/uL (130-450); RED BLOOD COUNT 2.52 10^6/uL (4.20-5.40); RED CELL DISTRIBUTION WIDTH 17.2 % (12.0-15.0); WHITE BLOOD COUNT 17.4 x10^3/uL (4.8-10.8)
[2024-04-16 17:15] LABS: HGB - HEMOGLOBIN 6.7 g/dL (12.0-16.0); SLIDE REVIEW? Indicated
--- NOTE | 2024-04-16 17:20 | ED Physician Documentation ---
History of Present Illness Stated complaint Stated Complaint: RESP DISTRESS Chief complaint Chief Complaint: Resp History obtained from History obtained from: Patient, Family and EMS Additonal information Additional information: Patient is a 73-year-old female brought in to the emergency department from formerly [facility] by EMS. She has a history of chronic respiratory failure, congestive heart failure and dementia. Recently discharged from the hospital. Normally is conversant, alert and oriented to self. Today staff found her with decreased responsiveness. Initial CODE STATUS appears to be full code but no intubation, will attempt to contact family to clarify. No other history available. Meds/Allgy Home Medications Ambulatory Orders Medication Instructions Recorded Confirmed duloxetine 60 mg capsule,delayed 60 mg PO DAILY 07/19/20 04/10/24 release (Cymbalta) solifenacin 10 mg tablet (Vesicare) 5 mg PO DAILY 07/19/20 04/10/24 acetaminophen 325 mg tablet 650 mg PO Q6H PRN PRN PAIN &/OR 11/05/23 04/10/24 FEVER pregabalin 100 mg capsule 100 mg PO TID 11/05/23 04/10/24 atorvastatin 80 mg tablet (Lipitor) 80 mg PO QPM hyperlipidemia #30 11/08/23 04/10/24 tabs cetirizine 5 mg tablet (Allergy 5 mg PO DAILY allergic rhinitis 11/08/23 04/10/24 Relief (cetirizine)) ##0 potassium chloride 10 mEq 10 meq PO DAILY 11/24/23 04/10/24 capsule,extended release tizanidine 2 mg tablet 2 mg PO Q12H PRN Spasms 11/24/23 04/10/24 ondansetron 4 mg disintegrating 4 mg translingual Q6H PRN Nausea / 12/03/23 04/10/24 tablet Vomiting diltiazem HCl 240 mg 240 mg PO DAILY 12/06/23 04/10/24 capsule,extended release 24 hr ferrous sulfate 325 mg (65 mg 325 mg PO BID #60 tabs 12/06/23 04/10/24 iron) tablet,delayed release magnesium oxide 400 mg (241.3 mg 400 mg PO BIDWM 12/06/23 04/10/24 magnesium) tablet pantoprazole 40 mg tablet,delayed See Rx Instructions .Route 01/27/24 04/10/24 release .COMPLEX #30 tabs apixaban 2.5 mg tablet (Eliquis) 2.5 mg PO BID 04/10/24 04/10/24 sennosides 8.6 mg capsule (senna) 17.2 mg PO DAILY PRN constipation 04/10/24 04/12/24 aripiprazole 10 mg tablet 10 mg PO HS 04/12/24 04/12/24 bisacodyl 10 mg rectal suppository 10 mg [place] DAILY PRN constipation 04/12/24 04/12/24 chlorhexidine gluconate 0.12 % 15 ml PO BID 30 days #1,500 mL 04/12/24 mouthwash furosemide 20 mg tablet 20 mg PO DAILY chronic congestive 04/12/24 04/12/24 heart failure hydrocodone 5 mg-acetaminophen 325 1 tab PO TID chronic pain 04/12/24 04/12/24 mg tablet mineral oil (Fleet Mineral Oil 118 ml [place] DAILY PRN constipation 04/12/24 04/12/24 enema) nystatin 100,000 unit/gram topical 1 applic topical BID 30 days #15 04/12/24 cream grams polyethylene glycol 3350 17 17 g PO DAILY PRN constipation 04/12/24 04/12/24 gram/dose oral powder (Miralax) amoxicillin 500 mg-potassium 1 tab PO BID #20 tabs 04/13/24 clavulanate 125 mg tablet Allergies Allergies Allergy/AdvReac Type Severity Reaction Status Date / Time clindamycin Allergy Unknown Verified 04/16/24 17:09 phenobarbital Allergy Hives Verified 04/16/24 17:09 morphine AdvReac Intermediate Hallucinati Verified 04/16/24 17:09 ons doxycycline AdvReac Nausea Verified 04/16/24 17:09 [facility] Medical History Medical History (Updated 04/16/24 @ 17:19 by Chris Triana MD) History of chronic heart failure Social History Social History Smoking Status: Former smoker If you are a former smoker, when did you quit? (Date/Year): 1989 Number of Years Smoked: 18 How many cigarettes a day do you smoke? (20 cigarettes=1 Pk): 10 Do you dip or chew tobacco?: No Do you vape?: No Patient requests smoking cessation consult: No Initiate information on smoking cessation: No Living arrangement: Assisted living Living Condition: With family Relationship: Level: Dependent Home Mobility Equipment: Lift History of Abuse: No POLST Patient has POLST: Yes POLST Status: Full Code Exam Constitutional pale, ill appearing, agonal resp HENMT normocephalic Eyes PERRL Respiratory decreased breath sounds bilaterally. Cardiovascular tachycardic Gastrointestinal abdomen soft to palpation Psychiatry non-verbal Skin skin color normal Results Vitals Vitals: Vital Signs - 24 hr 04/16/24 17:07 04/16/24 17:09 Temperature 36.2 C L Temperature Source Rectal Pulse Rate 61 96 Respiratory Rate 21 Blood Pressure 99/52 L O2 Saturation 98 O2 Source BIPAP Fraction of Inspired Oxygen (FIO2) 35 Pain Intensity 0 Oxygen O2 Source BIPAP Labs Labs: Laboratory Tests 04/16/24 04/16/24 04/16/24 17:02 17:02 17:02 WBC 17.4 H RBC 2.52 L Hgb 6.7 L* Hct 23.3 L MCV 92.5 MCH 26.6 L MCHC 28.8 L RDW 17.2 H Plt Count 386 MPV 12.0 H Neut # (Auto) 14.6 H Lymph # (Auto) 1.5 Webb # (Auto) 0.9 Eos # (Auto) 0.0 Baso # (Auto) 0.1 Absolute Nucleated RBC 0.00 Nucleated RBC % 0.0 Manual Slide Review Indicated Platelet Estimate NORMAL (130-450,000) Platelet Morphology NORMAL APPEARANCE RBC Morph Micro Appear 2+ ANISOCYTOSIS 1+ HYPOCHROMASIA 1+ POLYCHROMASIA Sodium Potassium Chloride Carbon Dioxide Anion Gap BUN Creatinine Estimated GFR (MDRD) Glucose Lactic Acid Calcium Total Bilirubin AST ALT Alkaline Phosphatase B-Natriuretic Peptide Total Protein Albumin Globulin Albumin/Globulin Ratio Lipase 04/16/24 17:02 WBC RBC Hgb Hct MCV MCH MCHC RDW Plt Count MPV Neut # (Auto) Lymph # (Auto) Webb # (Auto) Eos # (Auto) Baso # (Auto) Absolute Nucleated RBC Nucleated RBC % Manual Slide Review Platelet Estimate Platelet Morphology RBC Morph Micro Appear 1+ SCHISTOCYTES Sodium 142 Potassium 5.4 H Chloride 106 Carbon Dioxide 26 Anion Gap 10.0 BUN 65 H Creatinine 3.5 H Estimated GFR (MDRD) 13 L Glucose 181 H Lactic Acid 1.6 Calcium 8.5 Total Bilirubin 0.6 AST 14 ALT 8 L Alkaline Phosphatase 126 H B-Natriuretic Peptide 706 H Total Protein 7.9 Albumin 2.7 L Globulin 5.2 H Albumin/Globulin Ratio 0.5 L Lipase < 10 L Rads (name of study) cxr: Relevant Findings:: Final report received PD Medical Decision Making ED course Complexity details: reviewed results and d/w patient ED course: Patient with what appears to be significant pulmonary edema and respiratory failure. She was immediately placed on BiPAP. I spoke with the hospitalist, Janneth Carrillo, she had recently discharged the patient. She confirms that this is significantly worse than her normal baseline. She spoke with the family, the patient will be made DNR. They are okay with BiPAP, therefore this was kept. The patient was given nitroglycerin and Lasix. Will be admitted to the ICU for further care. Discussed the case with the hospitalist who accepts This document was made in part using voice recognition software. While efforts are made to proofread this document, sound alike and grammatical errors may occur. Critical Care Time(min): 40 Time Includes: See progress note Data interpretation: See progress note Procedures included in critical care time: See progress note Procedures excluded from critical care time: See progress note Discharge Plan Discharge Patient Disposition: 66 [facility] DC/Xfer Condition: Serious Clinical Impression: Pulmonary edema, Acute CHF (congestive heart failure), Low hemoglobin, Bedbound, Do not intubate, perform CPR, or defibrillate Interventions: ED Admission Assessment Last Done: 04/16/24 18:20
[2024-04-16 17:21] LABS: ALBUMIN 2.7 g/dL (3.2-5.5); ALBUMIN/GLOBULIN RATIO 0.5 (1.0-2.2); ALKALINE PHOSPHATASE 126 IU/L (42-121); ALT ALANINE AMINOTRANSFERASE 8 IU/L (10-60); AST ASPARTATE AMINOTRANSFERASE 14 IU/L (10-42); BILIRUBIN,TOTAL 0.6 mg/dL (0.2-1.0); BUN - BLOOD UREA NITROGEN 65 mg/dL (6-20); CALCIUM 8.5 mg/dL (8.5-10.3); CARBON DIOXIDE - CO2 26 mmol/L (21-32); CHLORIDE 106 mmol/L (101-111); CREATININE 3.5 mg/dL (0.6-1.3); GFR - MDRD 13 (>89); GLUCOSE 181 mg/dL (74-104); POTASSIUM 5.4 mmol/L (3.5-4.5); SODIUM 142 mmol/L (135-145); TOTAL PROTEIN 7.9 g/dL (6.4-8.9)
[2024-04-16 17:22] LABS: LIPASE < 10 U/L (11-82)
--- NOTE | 2024-04-16 17:27 | XRAY Report ---
PROCEDURE: XR Chest 1V INDICATIONS: resp failure TECHNIQUE: One view of the chest was acquired. COMPARISON: 12/03/2023 FINDINGS: Surgical changes and devices: None. Lungs and pleura: Moderate to severe diffuse lung disease. Possible small left pleural effusion. Mediastinum: Borderline enlarged heart. Probable hiatal hernia. Bones and chest wall: Degenerative changes IMPRESSION: Moderate severe diffuse lung disease likely edema, alveolar damage, and/or infection. Low lung volumes. Borderline cardiomegaly. Possible small left pleural effusion. Reviewed by: Devon Magdaleno MD on 04/16/2024 4:25 PM [facility] Approved by: Devon Magdaleno MD on 04/16/2024 4:25 PM [facility] Station ID: [id number]
--- NOTE | 2024-04-16 17:27 | HISTORY & PHYSICAL EXAMINATION ---
Chief Complaint Chief Complaint Chief Complaint: shortness of breath History of Present Illness Admitted From Admitted From:: [facility] History Obtained From Records Reviewed: most recent admission. History obtained from: EMS/ED MD/Son Herson History of Present Illness HPI Comment/Other: 73-year-old female well-known to our service who presents to the emergency department with acute shortness of breath. She lives in a care facility. Her son came to see her this evening and noticed that her mental status was much decreased and that her color was very poor. EMS was called and she was brought to the emergency department immediately with low oxygen saturations. She is unable to answer any questions. Normally she is oriented to self and occasionally to location. I briefly discussed her CODE STATUS with her son Joe. I had had an advance care planning discussion with Gloria and her son this summer and at that time they both felt that she wanted to be full code. In discussing with Joe this evening he recognizes that this is not a good idea. He does not want her to be intubated and he does not want her to have CPR. Meds/Allgy Home Medications Ambulatory Orders Medication Instructions Recorded Confirmed duloxetine 60 mg capsule,delayed 60 mg PO DAILY 07/19/20 04/10/24 release (Cymbalta) solifenacin 10 mg tablet (Vesicare) 5 mg PO DAILY 07/19/20 04/10/24 acetaminophen 325 mg tablet 650 mg PO Q6H PRN PRN PAIN &/OR 11/05/23 04/10/24 FEVER pregabalin 100 mg capsule 100 mg PO TID 11/05/23 04/10/24 atorvastatin 80 mg tablet (Lipitor) 80 mg PO QPM hyperlipidemia #30 11/08/23 04/10/24 tabs cetirizine 5 mg tablet (Allergy 5 mg PO DAILY allergic rhinitis 11/08/23 04/10/24 Relief (cetirizine)) ##0 potassium chloride 10 mEq 10 meq PO DAILY 11/24/23 04/10/24 capsule,extended release tizanidine 2 mg tablet 2 mg PO Q12H PRN Spasms 11/24/23 04/10/24 ondansetron 4 mg disintegrating 4 mg translingual Q6H PRN Nausea / 12/03/23 04/10/24 tablet Vomiting diltiazem HCl 240 mg 240 mg PO DAILY 12/06/23 04/10/24 capsule,extended release 24 hr ferrous sulfate 325 mg (65 mg 325 mg PO BID #60 tabs 12/06/23 04/10/24 iron) tablet,delayed release magnesium oxide 400 mg (241.3 mg 400 mg PO BIDWM 12/06/23 04/10/24 magnesium) tablet pantoprazole 40 mg tablet,delayed See Rx Instructions .Route 01/27/24 04/10/24 release .COMPLEX #30 tabs apixaban 2.5 mg tablet (Eliquis) 2.5 mg PO BID 04/10/24 04/10/24 sennosides 8.6 mg capsule (senna) 17.2 mg PO DAILY PRN constipation 04/10/24 04/12/24 aripiprazole 10 mg tablet 10 mg PO HS 04/12/24 04/12/24 bisacodyl 10 mg rectal suppository 10 mg SC DAILY PRN constipation 04/12/24 04/12/24 chlorhexidine gluconate 0.12 % 15 ml PO BID 30 days #1,500 mL 04/12/24 mouthwash furosemide 20 mg tablet 20 mg PO DAILY chronic congestive 04/12/24 04/12/24 heart failure hydrocodone 5 mg-acetaminophen 325 1 tab PO TID chronic pain 04/12/24 04/12/24 mg tablet mineral oil (Fleet Mineral Oil 118 ml SC DAILY PRN constipation 04/12/24 04/12/24 enema) nystatin 100,000 unit/gram topical 1 applic topical BID 30 days #15 04/12/24 cream grams polyethylene glycol 3350 17 17 g PO DAILY PRN constipation 04/12/24 04/12/24 gram/dose oral powder (Miralax) amoxicillin 500 mg-potassium 1 tab PO BID #20 tabs 04/13/24 clavulanate 125 mg tablet Allergies Allergies Allergy/AdvReac Type Severity Reaction Status Date / Time clindamycin Allergy Unknown Verified 04/16/24 17:09 phenobarbital Allergy Hives Verified 04/16/24 17:09 morphine AdvReac Intermediate Hallucinati Verified 04/16/24 17:09 ons doxycycline AdvReac Nausea Verified 04/16/24 17:09 [facility] Medical History Medical History (Updated 04/16/24 @ 17:19 by Chris Triana MD) History of chronic heart failure Social History Social History Smoking Status: Former smoker If you are a former smoker, when did you quit? (Date/Year): 1989 Number of Years Smoked: 18 How many cigarettes a day do you smoke? (20 cigarettes=1 Pk): 10 Do you dip or chew tobacco?: No Do you vape?: No Patient requests smoking cessation consult: No Initiate information on smoking cessation: No Living arrangement: Assisted living Living Condition: With family Relationship: Level: Dependent Home Mobility Equipment: Lift History of Abuse: No POLST Patient has POLST: Yes POLST Status: change in code staus Review of Systems Status of ROS: unobtainable due to medical condition Prior Level of Functionality: Bedbound. Lives in a nursing facility. Exam Constitutional appears chronically ill, cyanotic HENMT normocephalic and head/scalp atraumatic Eyes conjunctivae normal and no scleral icterus Neck/C-Spine visual inspection normal Lymph no lymphadenopathy noted Chest inspection of chest normal Respiratory breath sounds equal bilaterally, abnormal respiratory effort (increased) (labored), rales noted (diffuse) and no use of accessory muscles Cardiovascular normal heart rate noted and no murmur (systolic murmur) Gastrointestinal abdomen soft to palpation Extremities no pedal edema. right lower extremity with drainage on dressing Neurology decreased mental status, non verbal. opens eyes to voice. Skin skin color normal (extremities cool. ) Conclusion/Plan Problem List (1) Pulmonary edema: Plan: Discussed with Dr. Whalen in the emergency department and evaluated patient at bedside together. Decision was made to admit this patient. It was at this point that I had a discussion with the son regarding de-escalation of CODE STATUS. See HPI Severe pulmonary edema of acute onset. BNP is 706. Chest x-ray is read as moderate severe diffuse lung disease likely edema, alveolar damage and/or infection Low lung volumes Borderline cardiomegaly Small left pleural effusion I have reviewed images. Patient does have significant edema. She has not been running any fever she has not had recent upper respiratory infection. We will send respiratory panel. (2) Pneumonia: Plan: She has diffuse lung disease. Cannot rule out pneumonia. She is a resident of a health care facility. I will treat her for healthcare acquired pneumonia. I have ordered cefepime and vancomycin. Will de-escalate as appropriate. Will also screen for COVID-pneumonia. Qualifiers: Laterality: left Lung location: lower lobe of lung Pneumonia type: due to unspecified organism Qualified Code(s): J18.9 - Pneumonia, unspecified organism (3) Acute CHF (congestive heart failure): Plan: Acute exacerbation of congestive heart failure. Will treat with aggressive diuresis. Will monitor potassium and renal function. We will not intubate this patient. (4) Microcytic anemia: Plan: Hemoglobin is 6.7. Given her acute hypoxia she is appropriate for transfusion. Will transfuse 1 unit of packed red blood cells. Emergency room physician did get this ordered. (5) Non-pressure chronic ulcer of other part of right lower leg limited to breakdown of skin: Plan: Right lower extremity ulceration which was incised and drained on 04/13. We will order appropriate wound care. (6) Type 2 diabetes mellitus: Plan: Patient is n.p.o. in light of her acute respiratory distress. We will institute a diabetic diet when her mental status improves. We will order sliding scale insulin and basal Lantus. Qualifiers: Diabetes mellitus complication status: without complication Diabetes mellitus terminal system operator insulin use: without terminal system operator use Qualified Code(s): E11.9 - Type 2 diabetes mellitus without complications Plan I have spent 80 minutes in the care of this patient today. This includes time [id number], review and ordering of diagnostic imaging and laboratory studies and consultation with other providers.. Monitoring the patient's signs symptoms, evaluation of medication effectiveness and patient's response to treatment. Lab Results Lab results reviewed: Yes 04/16/24 17:02 04/16/24 17:02
[2024-04-16 17:50] LABS: PLATELET ESTIMATE, MANUAL NORMAL (130-450,000) (NORMAL); PLATELET MORPHOLOGY NORMAL APPEARANCE (NORMAL)
[2024-04-16] MEDS ORDERED: NITROGLYCERIN 2% PASTE TOP ONE (18:18)
[2024-04-16] MEDS ORDERED: FUROSEMIDE 40 MG/4 ML VIAL ONE (18:18)
[2024-04-16 18:22] LABS: ABG BASE EXCESS -1.1 mmol/L (-2.0-3.0); ABG HCO3 25.4 mmol/L (22.0-26.0); ABG PCO2 54 mmHg (34-45); ABG PH 7.29 (7.35-7.45); ABG PO2 44 mmHg (80-100); ABG TCO2 27.1 MMOL/L (21.0-29.0)
[2024-04-16 18:23] LABS: ALLEN TEST POSITIVE
[2024-04-16 18:28] LABS: ABG OXYGEN SATURATION 77 % (94-98)
[2024-04-16] MEDS: FUROSEMIDE 40 MG/4 ML VIAL IVP STA (18:28)
[2024-04-16] MEDS: NITROGLYCERIN 2% PASTE TOP STA (18:28)
[2024-04-16] MEDS: VANCOMYCIN INJ 2 GM in SODIUM CHLORIDE 0.9% 500 ML IV ONE (19:15)
[2024-04-16] MEDS: CEFEPIME 1 GM in SODIUM CHLORIDE 0.9% MINIBAG 100 ML IV SCH (21:38)
[2024-04-16] MEDS ORDERED: SODIUM CHLORIDE FLUSH 0.9% 10 ML SYRINGE IVP PRN (21:44)
[2024-04-16] MEDS: SODIUM CHLORIDE FLUSH 0.9% 10 ML SYRINGE IVP SCH (21:46)
[2024-04-16] MEDS: SODIUM CHLORIDE 0.9% 500 ML IV PRN (21:47)
[2024-04-16 22:01] LABS: B. PARAPERTUSSIS- RESP PCR PAN NOT DETECTED; B. PERTUSSIS- RESP PCR PANEL NOT DETECTED; C. PNEUMONIAE- RESP PCR PANEL NOT DETECTED; CORONAVIRUS 229E-RESP PCR NOT DETECTED; CORONAVIRUS HKU1-RESP PCR NOT DETECTED; CORONAVIRUS NL63-RESP PCR NOT DETECTED; CORONAVIRUS OC43-RESP PCR NOT DETECTED; HUMAN METAPNEUMOVIRUS NOT DETECTED; INFLUENZA A- RESP PCR PANEL NOT DETECTED; INFLUENZA B - RESP PCR PANEL NOT DETECTED; M. PNEUMONIAE- RESP PCR PANEL NOT DETECTED; PARAINFLUENZA VIRUS 1 NOT DETECTED; PARAINFLUENZA VIRUS 2 NOT DETECTED; PARAINFLUENZA VIRUS 4 NOT DETECTED; RHINOVIRUS/ENTEROVIRUS NOT DETECTED; RSV- RESP PCR PANEL NOT DETECTED; SARS-CoV-2 -RESP PCR PANEL NOT DETECTED
[2024-04-16] MEDS ORDERED: ONDANSETRON 4 MG/2 ML VIAL IVP PRN (22:32)
[2024-04-17] MEDS: SODIUM CHLORIDE FLUSH 0.9% 10 ML SYRINGE IVP SCH (00:34)
[2024-04-17] MEDS: ACETAMINOPHEN 325 MG TABLET PO PRN (01:05)
[2024-04-17] MEDS: oxyCODONE 5 MG TABLET PO PRN (02:51)
[2024-04-17] MEDS: MIDODRINE 2.5 MG TABLET PO PRN (04:34)
[2024-04-17 06:23] LABS: BASOPHILS # (AUTO) 0.1 10^3/uL (0.0-0.1); BASOPHILS % (AUTO) 0.3 %; EOSINOPHILS # (AUTO) 0.1 10^3/uL (0.0-0.7); EOSINOPHILS % (AUTO) 0.3 %; HCT - HEMATOCRIT 22.1 % (37.0-47.0); LYMPHOCYTES # (AUTO) 1.3 10^3/uL (1.5-3.5); LYMPHOCYTES % (AUTO) 7.4 %; MEAN CORPUSCULAR HEMOGLOBIN 27.4 pg (27.0-31.0); MEAN CORPUSCULAR HGB CONC 29.9 g/dL (32.0-36.0); MEAN CORPUSCULAR VOLUME 91.7 fL (81.0-99.0); MEAN PLATELET VOLUME 11.7 fL (7.9-10.8); MONOCYTES # (AUTO) 1.1 10^3/uL (0.0-1.0); MONOCYTES % (AUTO) 6.5 %; NEUTROPHILS # (AUTO) 14.2 10^3/uL (1.5-6.6); NRBC ABSOLUTE COUNT (AUTO) 0.04 x10^3/uL; NUCLEATED RED BLOOD CELLS AUTO 0.2 /100WBC; PLT - PLATELET COUNT 333 10^3/uL (130-450); RED BLOOD COUNT 2.41 10^6/uL (4.20-5.40); RED CELL DISTRIBUTION WIDTH 16.4 % (12.0-15.0); WHITE BLOOD COUNT 17.2 x10^3/uL (4.8-10.8)
[2024-04-17 06:31] LABS: HGB - HEMOGLOBIN 6.6 g/dL (12.0-16.0)
[2024-04-17 07:00] LABS: CALCIUM 8.1 mg/dL (8.5-10.3); CREATININE 3.5 mg/dL (0.6-1.3); POTASSIUM 4.4 mmol/L (3.5-4.5)
--- NOTE | 2024-04-17 08:19 | PROVIDER PROGRESS NOTE ---
Subjective Prog Note Date Prog Note Date: 04/17/24 Prog Note Time: 08:18 Subjective Pt reports feeling: Improved Subjective: has been on the BiPAP overnight. She is awake this AM with her eyes open. She has been able to wean off the BiPAP this AM to high flow. However with the mask off for any period of time she is not able to maintain sats. Took mask off for less than 15 min and desat to 55% Current Medications Current Medications Current Medications: Current Medications Generic Name Dose Route Start Last Admin Trade Name Freq PRN Reason Stop Dose Admin Acetaminophen 650 mg 04/16/24 22:32 04/17/24 01:05 Acetaminophen 325 Mg Tablet PO 650 mg Q4HR PRN Administration Pain 1 to 4, or Fever Furosemide 40 mg 04/17/24 23:00 Furosemide 40 Mg/4 Ml Vial IVP 04/17/24 23:01 ONCE ONE Cefepime HCl 1 gm/ Sodium 100 mls @ 200 mls/hr 04/16/24 20:00 04/16/24 22:10 Chloride IV Infused Q24H CHELSEA Infusion Vancomycin HCl 1.5 gm/ Sodium 500 mls @ 250 mls/hr 04/18/24 18:00 Chloride IV Q48H CHELSEA Sodium Chloride 500 mls @ 20 mls/hr 04/16/24 21:44 04/16/24 22:50 Normal Saline 0.9% IV 0 mls/hr Q24H PRN Infusion TKO RATE Ondansetron HCl 4 mg 04/16/24 22:32 Ondansetron 4 Mg/2 Ml Vial IVP Q6HR PRN Nausea / Vomiting Oxycodone HCl 5 mg 04/16/24 22:32 04/17/24 02:51 Oxycodone 5 Mg Tablet PO 5 mg Q4HR PRN Administration Pain 5 to 7 Sodium Chloride 10 ml 04/16/24 22:32 Sodium Chloride Flush 0.9% 10 Ml Syringe IVP PRN PRN NEEDED PER PROVIDER ORDERS Sodium Chloride 10 ml 04/17/24 01:00 04/17/24 08:12 Sodium Chloride Flush 0.9% 10 Ml Syringe IVP 10 ml 0100,0900,1700 CHELSEA Administration Objective Vital Signs/Intake & Output Reviewed Vital Signs: Yes Vital Signs: Vital Signs x48h Temp Pulse Pulse Resp BP Pulse Ox O2 Flow Rate 04/17/24 08:00 75 21 141/49 H 93 04/17/24 07:29 70 04/17/24 07:02 64 18 97/46 L 99 45 04/17/24 06:28 80 21 122/87 93 04/17/24 05:13 75 17 85/66 L 93 04/17/24 05:07 76 04/17/24 04:20 69 21 90/45 L 97 04/17/24 03:04 76 04/17/24 03:00 74 18 99/49 L 96 04/17/24 02:07 78 16 107/40 L 99 04/17/24 02:03 65 04/17/24 01:04 77 19 129/75 95 04/17/24 00:32 36.3 C L 73 21 118/64 98 Intake & Output: Intake & Output 04/14/24 04/15/24 04/16/24 04/17/24 23:59 23:59 23:59 23:59 Intake Total 621 / 621 464 / 464 Output Total 50 / 50 150 / 150 Balance 571 / 571 314 / 314 Weight (kg) 97.4 kg 91 kg Objective General Appearance: positive Moderate distress (dyspneic, appears chronically ill) Eyes Bilateral: positive Conjunctivae nml ENT: positive ENT inspection nml and Other (no parotid tenderness or swelling. ) Neck: positive Nml inspection Respiratory: positive Chest non-tender and Rhonchi (occasional) Cardiovascular: positive Tachycardia (mild, low 100's. ) and Systolic murmur Abdomen: positive Non-tender and No distention Skin: positive Other (diffuse petichial rash about the feet, hematoma on the right inner leg not actively bleeding. ) Extremities: positive Non-tender, No pedal edema and Other (left arm diffusely swollen) Neurologic/Psychiatric: positive Oriented x3 Lab Results 04/17/24 13:23 04/17/24 05:36 Other Labs: Lab Results x24hrs 04/17/24 04/16/24 04/16/24 Range/Units 05:36 21:03 18:15 WBC 17.2 H (4.8-10.8) x10^3/uL RBC 2.41 L (4.20-5.40) 10^6/uL Hgb 6.6 L* (12.0-16.0) g/dL Hct 22.1 L (37.0-47.0) % MCV 91.7 (81.0-99.0) fL MCH 27.4 (27.0-31.0) pg MCHC 29.9 L (32.0-36.0) g/dL RDW 16.4 H (12.0-15.0) % Plt Count 333 (130-450) 10^3/uL MPV 11.7 H (7.9-10.8) fL Neut # (Auto) 14.2 H (1.5-6.6) 10^3/uL Lymph # (Auto) 1.3 L (1.5-3.5) 10^3/uL [place] # (Auto) 1.1 H (0.0-1.0) 10^3/uL Eos # (Auto) 0.1 (0.0-0.7) 10^3/uL Baso # (Auto) 0.1 (0.0-0.1) 10^3/uL Absolute Nucleated RBC 0.04 x10^3/uL Nucleated RBC % 0.2 /100WBC Manual Slide Review Platelet Estimate (NORMAL) Platelet Morphology (NORMAL) RBC Morph Micro Appear (NORMAL) Bld Gas Analysis Time 1820 Sample Site LEFT RADIAL ABG pH 7.29 L (7.35-7.45) ABG pCO2 54 H (34-45) mmHg ABG pO2 44 L (80-100) mmHg ABG HCO3 25.4 (22.0-26.0) mmol/L ABG Total CO2 27.1 (21.0-29.0) MMOL/L ABG O2 Saturation 77 L* (94-98) % ABG Base Excess -1.1 (-2.0-3.0) mmol/L Lauro Test POSITIVE O2 Delivery Device BiPAP FiO2 35.00 EPAP 5 cmH2O IPAP 15 cmH2O Sodium 144 (135-145) mmol/L Potassium 4.4 (3.5-4.5) mmol/L Chloride 109 (101-111) mmol/L Carbon Dioxide 24 (21-32) mmol/L Anion Gap 11.0 (6-13) BUN 65 H (6-20) mg/dL Creatinine 3.5 H (0.6-1.3) mg/dL Estimated GFR (MDRD) 13 L (>89) Glucose 119 H (74-104) mg/dL Lactic Acid (0.5-2.2) mmol/L Calcium 8.1 L (8.5-10.3) mg/dL Total Bilirubin (0.2-1.0) mg/dL AST (10-42) IU/L ALT (10-60) IU/L Alkaline Phosphatase (42-121) IU/L B-Natriuretic Peptide 670 H (5-100) pg/mL Total Protein (6.4-8.9) g/dL Albumin (3.2-5.5) g/dL Globulin (2.1-4.2) g/dL Albumin/Globulin Ratio (1.0-2.2) Lipase (11-82) U/L Nasal Adenovirus (PCR) NOT DETECTED Nasal B. parapertussis DNA (PCR) NOT DETECTED Nasal Coronavir 229E PCR NOT DETECTED Nasal Coronavir HKU1 PCR NOT DETECTED Nasal Coronavir NL63 PCR NOT DETECTED Nasal Coronavir OC43 PCR NOT DETECTED Nasal Enterovir/Rhinovir PCR NOT DETECTED Nasal Influenza B PCR NOT DETECTED Nasal Influenza A PCR NOT DETECTED Nasal Parainfluen 1 PCR NOT DETECTED Nasal Parainfluen 2 PCR NOT DETECTED Nasal Parainfluen 3 PCR NOT DETECTED Nasal Parainfluen 4 PCR NOT DETECTED Nasal RSV (PCR) NOT DETECTED Nasal Screen MRSA (PCR) (NEGATIVE) Nasal B.pertussis DNA PCR NOT DETECTED Nasal C.pneumoniae (PCR) NOT DETECTED Alexx Human Metapneumo PCR NOT DETECTED Nasal M.pneumoniae (PCR) NOT DETECTED Nasal SARS-CoV-2 (PCR) NOT DETECTED Blood Type Antibody Screen Crossmatch IS Only 04/16/24 04/16/24 04/16/24 Range/Units 18:00 17:41 17:02 WBC (4.8-10.8) x10^3/uL RBC (4.20-5.40) 10^6/uL Hgb (12.0-16.0) g/dL Hct (37.0-47.0) % MCV (81.0-99.0) fL MCH (27.0-31.0) pg MCHC (32.0-36.0) g/dL RDW (12.0-15.0) % Plt Count (130-450) 10^3/uL MPV (7.9-10.8) fL Neut # (Auto) (1.5-6.6) 10^3/uL Lymph # (Auto) (1.5-3.5) 10^3/uL [place] # (Auto) (0.0-1.0) 10^3/uL Eos # (Auto) (0.0-0.7) 10^3/uL Baso # (Auto) (0.0-0.1) 10^3/uL Absolute Nucleated RBC x10^3/uL Nucleated RBC % /100WBC Manual Slide Review Platelet Estimate (NORMAL) Platelet Morphology (NORMAL) RBC Morph Micro Appear 1+ SCHISTOCYTES (NORMAL) Bld Gas Analysis Time Sample Site ABG pH (7.35-7.45) ABG pCO2 (34-45) mmHg ABG pO2 (80-100) mmHg ABG HCO3 (22.0-26.0) mmol/L ABG Total CO2 (21.0-29.0) MMOL/L ABG O2 Saturation (94-98) % ABG Base Excess (-2.0-3.0) mmol/L Lauro Test O2 Delivery Device FiO2 EPAP cmH2O IPAP cmH2O Sodium 142 (135-145) mmol/L Potassium 5.4 H (3.5-4.5) mmol/L Chloride 106 (101-111) mmol/L Carbon Dioxide 26 (21-32) mmol/L Anion Gap 10.0 (6-13) BUN 65 H (6-20) mg/dL Creatinine 3.5 H (0.6-1.3) mg/dL Estimated GFR (MDRD) 13 L (>89) Glucose 181 H (74-104) mg/dL Lactic Acid 1.6 (0.5-2.2) mmol/L Calcium 8.5 (8.5-10.3) mg/dL Total Bilirubin 0.6 (0.2-1.0) mg/dL AST 14 (10-42) IU/L ALT 8 L (10-60) IU/L Alkaline Phosphatase 126 H (42-121) IU/L B-Natriuretic Peptide 706 H (5-100) pg/mL Total Protein 7.9 (6.4-8.9) g/dL Albumin 2.7 L (3.2-5.5) g/dL Globulin 5.2 H (2.1-4.2) g/dL Albumin/Globulin Ratio 0.5 L (1.0-2.2) Lipase < 10 L (11-82) U/L Nasal Adenovirus (PCR) Nasal B. parapertussis DNA (PCR) Nasal Coronavir 229E PCR Nasal Coronavir HKU1 PCR Nasal Coronavir NL63 PCR Nasal Coronavir OC43 PCR Nasal Enterovir/Rhinovir PCR Nasal Influenza B PCR Nasal Influenza A PCR Nasal Parainfluen 1 PCR Nasal Parainfluen 2 PCR Nasal Parainfluen 3 PCR Nasal Parainfluen 4 PCR Nasal RSV (PCR) Nasal Screen MRSA (PCR) NEGATIVE (NEGATIVE) Nasal B.pertussis DNA PCR Nasal C.pneumoniae (PCR) Alexx Human Metapneumo PCR Nasal M.pneumoniae (PCR) Nasal SARS-CoV-2 (PCR) Blood Type A POSITIVE Antibody Screen NEGATIVE Crossmatch IS Only See Detail 04/16/24 04/16/24 04/16/24 Range/Units 17:02 17:02 17:02 WBC 17.4 H (4.8-10.8) x10^3/uL RBC 2.52 L (4.20-5.40) 10^6/uL Hgb 6.7 L* (12.0-16.0) g/dL Hct 23.3 L (37.0-47.0) % MCV 92.5 (81.0-99.0) fL MCH 26.6 L (27.0-31.0) pg MCHC 28.8 L (32.0-36.0) g/dL RDW 17.2 H (12.0-15.0) % Plt Count 386 (130-450) 10^3/uL MPV 12.0 H (7.9-10.8) fL Neut # (Auto) 14.6 H (1.5-6.6) 10^3/uL Lymph # (Auto) 1.5 (1.5-3.5) 10^3/uL [place] # (Auto) 0.9 (0.0-1.0) 10^3/uL Eos # (Auto) 0.0 (0.0-0.7) 10^3/uL Baso # (Auto) 0.1 (0.0-0.1) 10^3/uL Absolute Nucleated RBC 0.00 x10^3/uL Nucleated RBC % 0.0 /100WBC Manual Slide Review Indicated Platelet Estimate NORMAL (130-450,000) (NORMAL) Platelet Morphology NORMAL APPEARANCE (NORMAL) RBC Morph Micro Appear 1+ POLYCHROMASIA 1+ HYPOCHROMASIA 2+ ANISOCYTOSIS (NORMAL) Bld Gas Analysis Time Sample Site ABG pH (7.35-7.45) ABG pCO2 (34-45) mmHg ABG pO2 (80-100) mmHg ABG HCO3 (22.0-26.0) mmol/L ABG Total CO2 (21.0-29.0) MMOL/L ABG O2 Saturation (94-98) % ABG Base Excess (-2.0-3.0) mmol/L Lauro Test O2 Delivery Device FiO2 EPAP cmH2O IPAP cmH2O Sodium (135-145) mmol/L Potassium (3.5-4.5) mmol/L Chloride (101-111) mmol/L Carbon Dioxide (21-32) mmol/L Anion Gap (6-13) BUN (6-20) mg/dL Creatinine (0.6-1.3) mg/dL Estimated GFR (MDRD) (>89) Glucose (74-104) mg/dL Lactic Acid (0.5-2.2) mmol/L Calcium (8.5-10.3) mg/dL Total Bilirubin (0.2-1.0) mg/dL AST (10-42) IU/L ALT (10-60) IU/L Alkaline Phosphatase (42-121) IU/L B-Natriuretic Peptide (5-100) pg/mL Total Protein (6.4-8.9) g/dL Albumin (3.2-5.5) g/dL Globulin (2.1-4.2) g/dL Albumin/Globulin Ratio (1.0-2.2) Lipase (11-82) U/L Nasal Adenovirus (PCR) Nasal B. parapertussis DNA (PCR) Nasal Coronavir 229E PCR Nasal Coronavir HKU1 PCR Nasal Coronavir NL63 PCR Nasal Coronavir OC43 PCR Nasal Enterovir/Rhinovir PCR Nasal Influenza B PCR Nasal Influenza A PCR Nasal Parainfluen 1 PCR Nasal Parainfluen 2 PCR Nasal Parainfluen 3 PCR Nasal Parainfluen 4 PCR Nasal RSV (PCR) Nasal Screen MRSA (PCR) (NEGATIVE) Nasal B.pertussis DNA PCR Nasal C.pneumoniae (PCR) Alexx Human Metapneumo PCR Nasal M.pneumoniae (PCR) Nasal SARS-CoV-2 (PCR) Blood Type Antibody Screen Crossmatch IS Only Assessment/Plan Problem List (1) Acute hypoxic respiratory failure: Impression: She presented to the emergency department with acute hypoxic respiratory failure. This is in the setting of chronic respiratory failure due to history of COPD. She is a bedbound senior care resident at baseline. I have had advance care planning discussions with her son in the past. she and her son at that time, several months ago, wanted her to be full code. When she presented to the emergency department yesterday evening she was in respiratory distress and a great amount of discomfort. At that time I spoke with her son Joe briefly and he asked me to make her no code. He recognizes that chest compressions and/or intubation would be very uncomfortable for his mother. Today Gloria has been able to wean off BiPAP after greater than 12 hours on this therapy. We have attempted diuresis with Lasix. She is not diuresing when looking at her intake and output. Her creatinine is not improving nor is it worsening. Her weights show a 6 kg weight loss since admission, I doubt the accuracy of this. Overall her trajectory is not 1 of improvement. (2) Pulmonary edema: Impression: Acute onset of pulmonary edema. She was treated with BiPAP and diuresis. Her chest x-ray looks very fluid overloaded. (3) Pneumonia: Impression: Pseudomonas and MRSA coverage for healthcare associated. Chest x-ray looks very fluid overloaded. Cannot rule out infection therefore antibiotics were started given her degree of critical illness.Her lactate is negative on admission at 1.6 she has a leukocytosis which is stable. 17.4 on admission, 17.2 this morning. Qualifiers: Laterality: left Lung location: lower lobe of lung Pneumonia type: due to unspecified organism Qualified Code(s): J18.9 - Pneumonia, unspecified organism (4) Acute CHF (congestive heart failure): Impression: At home she is on furosemide 20 mg a day. I have given her 40 mg of Lasix IV yesterday evening, and again this morning. Her diuresis has been quite minimal. (5) Melena: Impression: Patient she has had several melanotic stools since presentation. We are treating her with blood transfusions. I am holding her Eliquis. At this time she is too medically fragile to undergo diagnostic EGD or colonoscopy. (6) Microcytic anemia: Impression: Likely related to chronic gastro intestinal blood loss. (7) Non-pressure chronic ulcer of other part of right lower leg limited to breakdown of skin: Impression: This area was incised and drained on [address] Oseguera. I do not see of any evidence of infection there is a blood clot at the wound there is no active bleeding. We are treating this with topical dressings. (8) Type 2 diabetes mellitus: Impression: Last hemoglobin A1c was 5.7% on 04/10/2024. Her glucose readings on her chemistry panel since admission were initially high at 181 119 this morning. I would like to discuss her care goals further with her son prior to initiating [id number] glucose testing. 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 She is currently mildly tachycardic. EKG done this admission shows rate controlled atrial fibrillation. She has been on diltiazem. I am holding this due to her pulmonary edema. I will watch her heart rate and treat with as needed metoprolol. I see it creeping up into the low 100s this afternoon. I will treat for heart rate of greater than 120. (10) Acute renal failure: Impression: Her potassium was initially elevated in the emergency department at 5.4. This is come down overnight to 4.4. Her creatinine was ranging in the twos at her admission about a week ago. On presentation to the emergency department last night her creatinine had jumped from 2.5 on 04/13, the date of hospital discharge to 3.5 on 04/16. In addition to her pulmonary failure and heart failure she has acute renal failure. Qualifiers: Acute renal failure type: unspecified Qualified Code(s): N17.9 - Acute kidney failure, unspecified (11) Parotitis, acute: Impression: She was hospitalized for this briefly less than a week ago. Current antibiotics for pneumonia should cover this infection. Her neck is supple. I do not palpate any swelling of the parotid gland on the left side. Cultures previously done showed methicillin sensitive staph aureus I have spent 60 minutes in the care of this patient today. This includes time [id number], review and ordering of diagnostic imaging and laboratory studies and consultation with other providers.. Monitoring the patient's signs symptoms, evaluation of medication effectiveness and patient's response to treatment. I reviewed her care with Dr Brady this afternoon to insure that there were not other appropriate therapeutic avenues to pursue. He recommended that I continue to diurese aggressively.
[2024-04-17] MEDS: FUROSEMIDE 40 MG/4 ML VIAL IVP ONE (09:51)
[2024-04-17] MEDS ORDERED: IPRATROPIUM/ALBUTEROL 3 ML NEB INH PRN (12:29)
--- NOTE | 2024-04-17 12:43 | PHARMACY PROGRESS NOTE ---
Best Possible Medication History Admit Date and Time: 04/16/24 1729 Home Medications Medication Instructions Recorded Confirmed Type duloxetine 60 mg capsule,delayed 60 mg PO DAILY 07/19/20 04/17/24 History release (Cymbalta) acetaminophen 325 mg tablet 650 mg PO Q6H PRN PRN PAIN &/OR 11/05/23 04/17/24 History FEVER pregabalin 100 mg capsule 100 mg PO TID 11/05/23 04/17/24 History atorvastatin 80 mg tablet (Lipitor) 80 mg PO QPM hyperlipidemia #30 11/08/23 04/17/24 Rx tabs cetirizine 5 mg tablet (Allergy 5 mg PO DAILY allergic rhinitis 11/08/23 04/17/24 Rx Relief (cetirizine)) ##0 potassium chloride 10 mEq 10 meq PO DAILY 11/24/23 04/17/24 History capsule,extended release ondansetron 4 mg disintegrating 4 mg translingual Q6H PRN Nausea / 12/03/23 04/17/24 History tablet Vomiting ferrous sulfate 325 mg (65 mg 325 mg PO BID #60 tabs 12/06/23 04/17/24 Rx iron) tablet,delayed release magnesium oxide 400 mg (241.3 mg 400 mg PO BIDWM 12/06/23 04/17/24 Rx magnesium) tablet pantoprazole 40 mg tablet,delayed See Rx Instructions .Route 01/27/24 04/17/24 Rx release .COMPLEX #30 tabs apixaban 2.5 mg tablet (Eliquis) 2.5 mg PO BID 04/10/24 04/17/24 History sennosides 8.6 mg capsule (senna) 17.2 mg PO DAILY PRN constipation 04/10/24 04/17/24 History aripiprazole 10 mg tablet 10 mg PO HS 04/12/24 04/17/24 History bisacodyl 10 mg rectal suppository 10 mg NC DAILY PRN constipation 04/12/24 04/17/24 History chlorhexidine gluconate 0.12 % 15 ml PO BID 30 days #1,500 mL 04/12/24 04/17/24 Rx mouthwash furosemide 20 mg tablet 20 mg PO DAILY chronic congestive 04/12/24 04/17/24 History heart failure hydrocodone 5 mg-acetaminophen 325 1 tab PO TID chronic pain 04/12/24 04/17/24 History mg tablet mineral oil (Fleet Mineral Oil 118 ml NC DAILY PRN constipation 04/12/24 04/17/24 History enema) nystatin 100,000 unit/gram topical 1 applic topical BID 30 days #15 04/12/24 04/17/24 Rx cream grams polyethylene glycol 3350 17 17 g PO DAILY PRN constipation 04/12/24 04/17/24 History gram/dose oral powder (Miralax) amoxicillin 500 mg-potassium 1 tab PO BID #20 tabs 04/13/24 04/17/24 Rx clavulanate 125 mg tablet diltiazem HCl 240 mg capsule,24 240 mg PO DAILY 04/17/24 04/17/24 History hr,extended release solifenacin 5 mg tablet 5 mg PO DAILY 04/17/24 04/17/24 History Processed by: Pharmacy Medications reviewed in ED?: No Medication History completed: Yes Patient Interview: Pt unable to participate Secondary Source(s): Insurance records and Facility MAR as ONLY source [facility] Statement: As the person ultimately responsible for medication therapy, providers are able to order a medication from an existing home medication list in [facility] via the "Reconcile Routine" prior to Confirmation of that medication by health support specialist. Such practice is discouraged except when the physician, in their clinical judgment, deems that a medical need exists for a medication without regard to previous use.
--- NOTE | 2024-04-17 13:11 | XRAY Report ---
PROCEDURE: XR Chest 1V INDICATIONS: CHF/PNA TECHNIQUE: One view of the chest was acquired. COMPARISON: 04/16/2024. FINDINGS: Surgical changes and devices: None. Lungs and pleura: Significant interval progression of process in the left hemithorax, which is nearl y totally opacified currently. Suspect a combination of pleural fluid and consolidation and atelectas is. Diffuse airspace disease involving the right hemithorax is similar to previous. Mediastinum: Mediastinal contours appear normal. Heart size is obscured by subjacent process in the left hemithorax. Bones and chest wall: No suspicious bony lesions. Overlying soft tissues appear unremarkable. IMPRESSION: Significant interval worsening of pulmonary status. Findings are similar in the right hemithorax. On the left, there is now near complete opacification. This is likely secondary to pleural fluid and con solidation and atelectasis. Comment: Consider CT chest with contrast for further evaluation Reviewed by: Wild Meadows MD on 04/17/2024 1:10 PM PST Approved by: Wild Meadows MD on 04/17/2024 1:10 PM PST Station ID: [id number]
[2024-04-17] MEDS: FUROSEMIDE 40 MG/4 ML VIAL IVP SCH (13:25)
[2024-04-17 14:56] VITALS: TEMP 97.8
[2024-04-17] MEDS: MULTIVITAMIN W/MINERALS TABLET PO SCH (16:26)
[2024-04-17] MEDS: METOPROLOL 5 MG/5 ML VIAL IVP PRN (18:03)
[2024-04-17 18:20] VITALS: BP 133/57
[2024-04-17 18:24] VITALS: O2SAT 93
[2024-04-17] MEDS ORDERED: MORPHINE 2 MG/ML CARPUJECT IVP PRN (18:31)
[2024-04-17] MEDS ORDERED: GLYCOPYRROLATE 1 MG/5 ML VIAL SUBQ PRN (18:31)
[2024-04-17] MEDS ORDERED: HALOPERIDOL 5 MG/ML VIAL IVP PRN (18:31)
[2024-04-17] MEDS ORDERED: ONDANSETRON 4 MG/2 ML VIAL IVP PRN (18:31)
[2024-04-17] MEDS ORDERED: haloperidoL 1 MG TABLET PO PRN (18:31)
[2024-04-17] MEDS ORDERED: CARBOXYMETHYLCELLULOSE OPHTH DROPS EACHEYE PRN (18:31)
[2024-04-17] MEDS ORDERED: LORazepam 2 MG/ML VIAL IVP PRN (18:31)
[2024-04-17] MEDS: SCOPOLAMINE PATCH TOP SCH (18:53)
[2024-04-17] MEDS: SODIUM CHLORIDE FLUSH 0.9% 10 ML SYRINGE IVP PRN (20:20)
[2024-04-17] MEDS ORDERED: FUROSEMIDE 40 MG/4 ML VIAL IVP ONE (23:00)
--- NOTE | 2024-04-18 18:18 | Discharge Summary ---
"Discharge Summary Admit Date: 04/16/24 Discharge Date: 04/17/24 Discharging Provider: Janneth Carrillo PA-C Primary Care Provider: Akbar Camacho Code Status: Do Not Attempt Resuscitation DIAGNOSES Discharge Diagnoses with Status of Each Condition: Acute hypoxic respiratory failure Pulmonary edema Pneumonia Acute CHF Melena Microcytic anemia Right lower extremity wound Type 2 diabetes Atrial fibrillation Acute renal failure Parotiditis HPI History of Present Illness: 73-year-old female well-known to our service who presents to the emergency department with acute shortness of breath. She lives in a care facility. Her son came to see her this evening and noticed that her mental status was much decreased and that her color was very poor. EMS was called and she was brought to the emergency department immediately with low oxygen saturations. She is unable to answer any questions. Normally she is oriented to self and occasionally to location. I briefly discussed her CODE STATUS with her son Joe. I had had an advance care planning discussion with Gloria and her son this summer and at that time they both felt that she wanted to be full code. In discussing with Joe this evening he recognizes that this is not a good idea. He does not want her to be intubated and he does not want her to have CPR. CONSULTS | PROCEDURES Procedures: Chest x-ray, 04/16: Moderate severe diffuse lung disease likely edema, alveolar damage, and/or infection. Low lung volumes Borderline cardiomegaly Possible small left pleural effusion Chest x-ray 04/17: Significant interval worsening of pulmonary status. Findings are similar in the right hemithorax. On the left there is now complete opacification this is likely secondary to pleural fluid and consolidation and atelectasis HOSPITAL COURSE Hospital Course: (1) Acute hypoxic respiratory failure: Impression: She presented to the emergency department with acute hypoxic respiratory failure. This is in the setting of chronic respiratory failure due to history of COPD. She is a bedbound assisted resident at baseline. I have had advance care planning discussions with her son in the past. she and her son at that time, several months ago, wanted her to be full code. When she presented to the emergency department yesterday evening she was in respiratory distress and a great amount of discomfort. At that time I spoke with her son Joe briefly and he asked me to make her no code. He recognizes that chest compressions and/or intubation would be very uncomfortable for his mother. Today Gloria has been able to wean off BiPAP after greater than 12 hours on this therapy. We have attempted diuresis with Lasix. She is not diuresing when looking at her intake and output. Her creatinine is not improving nor is it worsening. Her weights show a 6 kg weight loss since admission, I doubt the accuracy of this. Overall her trajectory is not 1 of improvement. Discussion with her son Herson at the bedside evening 04/17. It was very disturbing for him yesterday evening when he went into [facility] and saw his mom panicked for breath choking and uncomfortable. They came here to the hospital and since that time, although Gloria has had multiple medical interventions, she has been comfortable. I discussed with Joe that she has multiple organ systems that are failing. Medical interventions are not improving her health or making her more comfortable at this point. At this point I am recommending that we implement comfort care measures and allow Gloria to pass peacefully. Joe is in agreement and wants his mom to be as comfortable and passes peacefully as possible. I will implement comfort care measures at this time. I will likely consult hospice in the morning and we will pursue transfer back to [facility] if she is not actively dying at that time. Gloria passes peacefully several hours later. (2) Pulmonary edema: Impression: Acute onset of pulmonary edema. She was treated with BiPAP and diuresis. Her chest x-ray looks very fluid overloaded. (3) Pneumonia: Impression: Pseudomonas and MRSA coverage for healthcare associated. Chest x-ray looks very fluid overloaded. Cannot rule out infection therefore antibiotics were started given her degree of critical illness.Her lactate is negative on admission at 1.6 she has a leukocytosis which is stable. 17.4 on admission, 17.2 on repeat. Qualifiers: Laterality: left Lung location: lower lobe of lung Pneumonia type: due to unspecified organism Qualified Code(s): J18.9 - Pneumonia, unspecified organism (4) Acute CHF (congestive heart failure): Impression: At home she is on furosemide 20 mg a day. I have given her 40 mg of Lasix IV twice since admit. Her diuresis has been quite minimal. (5) Melena: Impression: Patient she has had several melanotic stools since presentation. We are treating her with blood transfusions. I am holding her Eliquis. too medically fragile to undergo diagnostic EGD or colonoscopy. (6) Microcytic anemia: Impression: Likely related to chronic gastro intestinal blood loss. (7) Non-pressure chronic ulcer of other part of right lower leg limited to breakdown of skin: Impression: This area was incised and drained on 04/[address] Oseguera. I do not see of any evidence of infection there is a blood clot at the wound there is no active bleeding. We are treating this with topical dressings. (8) Type 2 diabetes mellitus: Impression: Last hemoglobin A1c was 5.7% on 04/10/2024. 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 She is currently mildly tachycardic. EKG done this admission shows rate controlled atrial fibrillation. She has been on diltiazem. I am holding this due to her pulmonary edema. I will watch her heart rate and treat with as needed metoprolol. I see it creeping up into the low 100s this afternoon. I will treat for heart rate of greater than 120. (10) Acute renal failure: Impression: Her potassium was initially elevated in the emergency department at 5.4. This is come down overnight to 4.4. Her creatinine was ranging in the twos at her admission about a week ago. On presentation to the emergency department last night her creatinine had jumped from 2.5 on 04/13, the date of hospital discharge to 3.5 on 04/16. In addition to her pulmonary failure and heart failure she has acute renal failure. Contributory to her overall failure Qualifiers: Acute renal failure type: unspecified Qualified Code(s): N17.9 - Acute kidney failure, unspecified (11) Parotitis, acute: Impression: She was hospitalized for this briefly less than a week ago. Current antibiotics for pneumonia should cover this infection. Her neck is supple. I do not palpate any swelling of the parotid gland on the left side. Cultures previously done showed methicillin sensitive staph aureus. Likely not contributory. no indicators for severe sepsis, or any indication that this plays into her current illness. ALLERGIES Allergies Allergy/AdvReac Type Severity Reaction Status Date / Time clindamycin Allergy Unknown Verified 04/16/24 17:09 phenobarbital Allergy Hives Verified 04/16/24 17:09 morphine AdvReac Intermediate Hallucinati Verified 04/16/24 17:09 ons doxycycline AdvReac Nausea Verified 04/16/24 17:09 MEDICATIONS Ambulatory Orders Medication Instructions Recorded Confirmed duloxetine 60 mg capsule,delayed 60 mg PO DAILY 07/19/20 04/17/24 release (Cymbalta) acetaminophen 325 mg tablet 650 mg PO Q6H PRN PRN PAIN &/OR 11/05/23 04/17/24 FEVER pregabalin 100 mg capsule 100 mg PO TID 11/05/23 04/17/24 atorvastatin 80 mg tablet (Lipitor) 80 mg PO QPM hyperlipidemia #30 11/08/23 04/17/24 tabs cetirizine 5 mg tablet (Allergy 5 mg PO DAILY allergic rhinitis 11/08/23 04/17/24 Relief (cetirizine)) ##0 potassium chloride 10 mEq 10 meq PO DAILY 11/24/23 04/17/24 capsule,extended release ondansetron 4 mg disintegrating 4 mg translingual Q6H PRN Nausea / 12/03/23 04/17/24 tablet Vomiting ferrous sulfate 325 mg (65 mg 325 mg PO BID #60 tabs 12/06/23 04/17/24 iron) tablet,delayed release magnesium oxide 400 mg (241.3 mg 400 mg PO BIDWM 12/06/23 04/17/24 magnesium) tablet pantoprazole 40 mg tablet,delayed See Rx Instructions .Route 01/27/24 04/17/24 release .COMPLEX #30 tabs apixaban 2.5 mg tablet (Eliquis) 2.5 mg PO BID 04/10/24 04/17/24 sennosides 8.6 mg capsule (senna) 17.2 mg PO DAILY PRN constipation 04/10/24 04/17/24 aripiprazole 10 mg tablet 10 mg PO HS 04/12/24 04/17/24 bisacodyl 10 mg rectal suppository 10 mg [place] DAILY PRN constipation 04/12/24 04/17/24 chlorhexidine gluconate 0.12 % 15 ml PO BID 30 days #1,500 mL 04/12/24 04/17/24 mouthwash furosemide 20 mg tablet 20 mg PO DAILY chronic congestive 04/12/24 04/17/24 heart failure hydrocodone 5 mg-acetaminophen 325 1 tab PO TID chronic pain 04/12/24 04/17/24 mg tablet mineral oil (Fleet Mineral Oil 118 ml VT DAILY PRN constipation 04/12/24 04/17/24 enema) nystatin 100,000 unit/gram topical 1 applic topical BID 30 days #15 04/12/24 04/17/24 cream grams polyethylene glycol 3350 17 17 g PO DAILY PRN constipation 04/12/24 04/17/24 gram/dose oral powder (Miralax) amoxicillin 500 mg-potassium 1 tab PO BID #20 tabs 04/13/24 04/17/24 clavulanate 125 mg tablet diltiazem HCl 240 mg capsule,24 240 mg PO DAILY 04/17/24 04/17/24 hr,extended release solifenacin 5 mg tablet 5 mg PO DAILY 04/17/24 04/17/24 PHYSICAL EXAM AT DISCHARGE Physical Exam Other/Comments: pronounced by RN. telehealth notified. LABS 04/17/24 13:23 04/17/24 05:36 TIME SPENT Time Spent in Discharge (Minutes): 35 Discharge Plan Discharge Patient Disposition: 20 Print Language: Hungarian Date/Time: 04/17/24 22:42"
[2024-04-19] MEDS ORDERED: VANCOMYCIN INJ 1.5 GM in SODIUM CHLORIDE 0.9% 500 ML IV SCH (18:00)
== END 2024-04-17 22:42 | disposition expired | DRG 189 ==
LOC: ED 16:50 → ICU 17:29
PROVIDERS: ADMIT Physician Assistant Medical; ATTEND Physician Assistant Medical
DX: F03.90 Unspecified dementia, unspecified severity, without behavioral disturbance, psychotic disturbance, mood disturbance, and anxiety; K11.20 Sialoadenitis, unspecified; Z79.01 Long term (current) use of anticoagulants; E11.622 Type 2 diabetes mellitus with other skin ulcer; J44.0 Chronic obstructive pulmonary disease with (acute) lower respiratory infection; J18.9 Pneumonia, unspecified organism; I50.33 Acute on chronic diastolic (congestive) heart failure; L97.911 Non-pressure chronic ulcer of unspecified part of right lower leg limited to breakdown of skin; J96.90 Respiratory failure, unspecified, unspecified whether with hypoxia or hypercapnia; Z66 Do not resuscitate; Z87.891 Personal history of nicotine dependence; I48.91 Unspecified atrial fibrillation; N17.9 Acute kidney failure, unspecified; Z51.5 Encounter for palliative care; J96.21 Acute and chronic respiratory failure with hypoxia; K92.1 Melena; Z74.01 Bed confinement status; D50.9 Iron deficiency anemia, unspecified; R00.0 Tachycardia, unspecified